=== PATIENT | male | born 1980 | race Caucasian/White ===

== ENCOUNTER 2019-01-27 17:54 | Inpatient (IN) | payer OTHER ==
[~2019-01-27] VITALS: Ht 195.6 cm; Wt 162.4 kg
[2019-01-27 18:49] LABS: BASO # 0.1 x10^3/uL (0.0-0.2); BASO % 2 % (0-3); EOS # 0.8 x10^3/uL (0.0-0.7); EOS % 9 % (0-3); HEMATOCRIT 42.3 % (39.0-53.0); HEMOGLOBIN 14.3 g/dL (13.0-17.5); LYMPH # 2.4 x10^3/uL (1.0-4.8); LYMPH % 28 % (24-48); MEAN CORPUSCULAR HEMOGLOBIN 31 pg (25-35); MEAN CORPUSCULAR HGB CONC 34 g/dL (31-37); MEAN CORPUSCULAR VOLUME 93 fL (79-100); MONO # 0.7 x10^3/uL (0.0-1.1); MONO % 8 % (0-9); NEUT # 4.6 x10^3uL (1.8-7.7); NEUT % 53 % (31-73); PLATELET COUNT 207 x10^3/uL (140-400); RED BLOOD COUNT 4.55 x10^6/uL (4.30-5.70); RED CELL DISTRIBUTION WIDTH 14.9 % (11.5-14.5); WHITE BLOOD COUNT 8.6 x10^3/uL (4.0-11.0)
[2019-01-27 18:59] LABS: PROTHROMBIN TIME PATIENT 13.2 SEC (11.7-14.0)
[2019-01-27 19:02] LABS: CALCIUM 9.3 mg/dL (8.5-10.1); GFR 84.1; POTASSIUM 3.6 mmol/L (3.5-5.1)
[2019-01-27 19:08] LABS: ALBUMIN 3.1 g/dL (3.4-5.0); ALBUMIN/GLOBULIN RATIO 0.6 (1.0-1.7); TOTAL BILIRUBIN 7.3 mg/dL (0.2-1.0); TOTAL PROTEIN 8.1 g/dL (6.4-8.2)
[2019-01-27] MEDS ORDERED: IOHEXOL 300 MG/ML 100ML VIAL. IV ONE (19:15)
[2019-01-27] MEDS ORDERED: IOHEXOL 240 MG/ML 50ML VIAL. PO ONE (19:15)
[2019-01-27] MEDS ORDERED: CONTRAST GIVEN. MC PRN (19:30)
[2019-01-27 20:07] LABS: BILIRUBIN,URINE LARGE (NEG); CLARITY,URINE CLEAR; PROTEIN,URINE NEGATIVE (NEG-TRACE)
[2019-01-27 20:11] LABS: COLOR,URINE AMBER
[2019-01-27 20:13] LABS: HYALINE CASTS, URINE OCCASIONAL /HPF; SQUAMOUS EPITHELIAL CELL,UR FEW /LPF
[2019-01-27 20:14] LABS: BARBITURATES NEG (NEG); BENZODIAZEPINES NEG (NEG); CANNABINOIDS NEG (NEG); COCAINE NEG (NEG); METHADONE NEG (NEG); OPIATES NEG (NEG); PHENCYCLIDINE NEG (NEG); WBC,URINE OCC /HPF (0-4)
[2019-01-27 20:15] LABS: AMPHETAMINE/METHAMPHETAMINE NEG (NEG)
[2019-01-27 20:16] LABS: NITRITE,URINE NEGATIVE (NEG)
[2019-01-27 20:17] LABS: BACTERIA,URINE 0 /HPF (0-FEW); RBC,URINE 0 /HPF (0-2)
--- NOTE | 2019-01-27 20:23 | PHYS DOC ---
Past Medical History Past Medical History: No Pertinent History Additional Past Surgical Histo: Back surgery-2006 Alcohol Use: None Drug Use: None Adult General Chief Complaint Chief Complaint: ABNORMAL LABS HPI HPI Patient is a 38 year old incarcerated male who presents with abnormal lab. Patient complaining of jaundice for the last couple days with not feeling good and generalized weakness, dark colored urine and house color stool , left lower quadrant mild aching pain as 3/10 without fever and chills, diarrhea, constipation. Patient complaining of mild nausea and anorexia. Patient denies history of alcoholism or hepatitis, liver problem, history of IV drug Use. Patient had lab yesterday [facility] the [facility] and had bilirubin of 7.2 and sent to ER for more evaluation. Review of Systems Review of Systems Constitutional: Denies fever or chills [] Eyes: Denies change in visual acuity, redness, or eye pain [] HENT: Denies nasal congestion or sore throat [] Respiratory: Denies cough or shortness of breath [] Cardiovascular: No additional information not addressed in HPI [] GI: Reports nausea and abdominal pain, denies vomiting, bloody stools or diar jacob. : Denies dysuria or hematuria [] Musculoskeletal: Denies back pain or joint pain [] Integument: Denies rash or skin lesions [] Neurologic: Denies headache, focal weakness or sensory changes [] Endocrine: Denies polyuria or polydipsia [] All other systems were reviewed and found to be within normal limits, except as documented in this note. Current Medications Current Medications Current Medications Medications (Trade) Dose Ordered Sig/Pierce Start Time Stop Time Status Last Admin Dose Admin Info (CONTRAST GIVEN -- Rx MONITORING) 1 each PRN DAILY PRN 01/27/19 19:30 01/29/19 19:29 Iohexol (Omnipaque 240 Mg/ml) 30 ml 1X ONCE 01/27/19 19:15 01/27/19 19:16 DC 01/27/19 19:15 30 ML Iohexol (Omnipaque 300 Mg/ml) 75 ml 1X ONCE 01/27/19 19:15 01/27/19 19:16 DC 01/27/19 20:10 75 ML Allergies Allergies Allergies Coded Allergies Type Severity Reaction Last Updated Verified codeine Allergy Mild Hives 01/27/19 Yes lithium Adverse Reaction Severe SEIZURE 01/27/19 Yes Physical Exam Physical Exam Constitutional: Well nourished, mild distress, non-toxic appearance, morbidly obese. [] HENT: Normocephalic, atraumatic, oropharynx moist, no oral exudates, nose normal. [] Eyes: PERRLA, EOMI, conjunctiva normal, no discharge, jaundice. [] Neck: Normal range of motion, no tenderness, supple, no stridor. [] Cardiovascular:Heart rate regular rhythm, no murmur [] Lungs & Thorax: Bilateral breath sounds clear to auscultation [] Abdomen: Bowel sounds normal, soft, no tenderness, no masses, no pulsatile masses. [] Skin: Warm, dry, no erythema, no rash, jaundice. [] Back: No tenderness, no CVA tenderness. [] Extremities: No tenderness, no cyanosis, no clubbing, ROM intact, no edema. [] Neurologic: Alert and oriented X 3, normal motor function, normal sensory function, no focal deficits noted. [] Psychologic: Affect normal, judgement normal, mood normal. [] Current Patient Data Vital Signs Vital Signs Date Time Temp Pulse Resp B/P (MAP) Pulse Ox O2 Delivery O2 Flow Rate FiO2 01/27/19 19:58 93 20 111/84 (93) 97 Room Air 01/27/19 18:36 98.9 98.9 Lab Values Laboratory Tests Test 01/27/19 18:38 01/27/19 19:55 White Blood Count 8.6 x10^3/uL (4.0-11.0) Red Blood Count 4.55 x10^6/uL (4.30-5.70) Hemoglobin 14.3 g/dL (13.0-17.5) Hematocrit 42.3 % (39.0-53.0) Mean Corpuscular Volume 93 fL (79-100) Mean Corpuscular Hemoglobin 31 pg (25-35) Mean Corpuscular Hemoglobin Concent 34 g/dL (31-37) Red Cell Distribution Width 14.9 % (11.5-14.5) H Platelet Count 207 x10^3/uL (140-400) Neutrophils (%) (Auto) 53 % (31-73) Lymphocytes (%) (Auto) 28 % (24-48) Monocytes (%) (Auto) 8 % (0-9) Eosinophils (%) (Auto) 9 % (0-3) H Basophils (%) (Auto) 2 % (0-3) Neutrophils # (Auto) 4.6 x10^3uL (1.8-7.7) Lymphocytes # (Auto) 2.4 x10^3/uL (1.0-4.8) Monocytes # (Auto) 0.7 x10^3/uL (0.0-1.1) Eosinophils # (Auto) 0.8 x10^3/uL (0.0-0.7) H Basophils # (Auto) 0.1 x10^3/uL (0.0-0.2) Prothrombin Time 13.2 SEC (11.7-14.0) Prothrombin Time INR 1.0 (0.8-1.1) PTT 28 SEC (24-38) Sodium Level 138 mmol/L (136-145) Potassium Level 3.6 mmol/L (3.5-5.1) Chloride Level 102 mmol/L (98-107) Carbon Dioxide Level 24 mmol/L (21-32) Anion Gap 12 (6-14) Blood Urea Nitrogen 13 mg/dL (8-26) Creatinine 1.0 mg/dL (0.7-1.3) Estimated GFR (Cockcroft-Gault) 84.1 BUN/Creatinine Ratio 13 (6-20) Glucose Level 162 mg/dL (70-99) H Calcium Level 9.3 mg/dL (8.5-10.1) Total Bilirubin 7.3 mg/dL (0.2-1.0) H Aspartate Amino Transferase (AST) 86 U/L (15-37) H Alanine Aminotransferase (ALT) 225 U/L (16-63) H Alkaline Phosphatase 373 U/L (46-116) H Ammonia 17 mcmol/L (11-34) Total Protein 8.1 g/dL (6.4-8.2) Albumin 3.1 g/dL (3.4-5.0) L Albumin/Globulin Ratio 0.6 (1.0-1.7) L Lipase 184 U/L (73-393) Ethyl Alcohol Level < 10 mg/dL (0-10) Urine Collection Type Unknown Urine Color Gregoria Urine Clarity Clear Urine pH 6.0 Urine Specific [place] >=1.030 Urine Protein Negative mg/dL (NEG-TRACE) Urine Glucose (UA) Negative mg/dL (NEG) Urine Ketones (Stick) 15 mg/dL (NEG) Urine Blood Negative (NEG) Urine Nitrite Negative (NEG) Urine Bilirubin Large (NEG) Urine Urobilinogen Dipstick 1.0 mg/dL (0.2 mg/dL) Urine Leukocyte Esterase Negative (NEG) Urine RBC 0 /HPF (0-2) Urine WBC Occ /HPF (0-4) Urine Squamous Epithelial Cells Few /LPF Urine Transitional Epithelial Cells Occ /LPF Urine Bacteria 0 /HPF (0-FEW) Urine Hyaline Casts Occasional /HPF Urine Mucus Marked /LPF Urine Opiates Screen Neg (NEG) Urine Methadone Screen Neg (NEG) Urine Barbiturates Neg (NEG) Urine Phencyclidine Screen Neg (NEG) Urine Amphetamine/Methamphetamine Neg (NEG) Urine Benzodiazepines Screen Neg (NEG) Urine Cocaine Screen Neg (NEG) Urine Cannabinoids Screen Neg (NEG) Urine Ethyl Alcohol Neg (NEG) Laboratory Tests 01/27/19 18:38 Laboratory Tests 01/27/19 18:38 EKG EKG [] Radiology/Procedures Radiology/Procedures [facility] [address] [place] [address] IMAGING REPORT Signed PATIENT: HALEY AHMADI ACCOUNT: [id number] : 1980 LOCATION: ER AGE: 38 SEX: M EXAM STATUS: REG ER ORD. PHYSICIAN: WADE CASAREZ MD REASON: jaundice PROCEDURE: CT ABD PELV W/ORAL&IV CONTRAST CT SCAN OF THE ABDOMEN AND PELVIS WITH IV CONTRAST. History: Jaundice Comparison:None. Procedure: Contiguous axial images of the abdomen and pelvis were performed after the administration of 75 cc of Omni 300 IV contrast and oral contrast. CT Abdomen with contrast: Findings: The common bile duct is dilated to 1.4 cm and the intrahepatic biliary tree is mildly dilated. There is a subcentimeter hypoattenuating lesion in the right lobe of liver which is too small to characterize. The gallbladder appears normal. Spleen: Unremarkable Pancreas: Unremarkable Adrenal Glands: Unremarkable Kidneys: Unremarkable There is no mass or lymphadenopathy. There is no free air. There is no free fluid. The appendix is normal. CT Pelvis with Contrast: Findings: The urinary bladder appears normal. There is no free fluid. There is no lymphadenopathy. Impression: Dilated common bile duct and dilated intrahepatic biliary tree without a stone seen. A nonradiopaque stone is possible and clinical correlation is suggested. PQRS Compliance Statement: One or more of the following individualized dose reduction techniques were utilized for this examination: 1. Automated exposure control 2. Adjustment of the mA and/or kV according to patient size 3. Use of iterative reconstruction technique Electronically signed by: Jose Mendez III, MD (01/27/2019 8:57 PM) [facility] DICTATED and SIGNED BY: JOSE MENDEZ III, MD DATE: 01/27/192056 Course & Med Decision Making Course & Med Decision Making Pertinent Labs and Imaging studies reviewed. (See chart for details) Evaluation of patient in ER showed 38-year-old male resident of present with sudden onset of jaundice for the last couple days. Patient had obvious junk denies bilirubin of more than 7 and elevation of liver function tests. CT showed dilated intrahepatic and common bile duct. Plan to admit patient to hospitalist consulted surgeon for further evaluation and treatment of jaundice.Patient requiring admission for further evaluation and treatment. Discussed with Dr. Anderson who is in agreement with admission. Discussed findings and plan with patient and family, who acknowledge understanding and agreement. Dragon Disclaimer Dragon Disclaimer This electronic medical record was generated, in whole or in part, using a voice recognition dictation system. Departure Departure Impression: Primary Impression: Jaundice Additional Impressions: Common bile duct dilatation Morbid obesity Disposition: 09 ADMITTED INPATIENT (at 2109) Admitting Physician: Almita Anderson (Accepted admission at 2109) Condition: IMPROVED Referrals: UNKNOWN PCP NAME (PCP) Problem Qualifiers WADE CASAREZ MD Jan 27, 2019 20:23
--- NOTE | 2019-01-27 21:00 | RAD ---
CT SCAN OF THE ABDOMEN AND PELVIS WITH IV CONTRAST. History: Jaundice Comparison:None. Procedure: Contiguous axial images of the abdomen and pelvis were performed after the administration of 75 cc of Omni 300 IV contrast and oral contrast. CT Abdomen with contrast: Findings: The common bile duct is dilated to 1.4 cm and the intrahepatic biliary tree is mildly dilated. There is a subcentimeter hypoattenuating lesion in the right lobe of liver which is too small to characterize. The gallbladder appears normal. Spleen: Unremarkable Pancreas: Unremarkable Adrenal Glands: Unremarkable Kidneys: Unremarkable There is no mass or lymphadenopathy. There is no free air. There is no free fluid. The appendix is normal. CT Pelvis with Contrast: Findings: The urinary bladder appears normal. There is no free fluid. There is no lymphadenopathy. Impression: Dilated common bile duct and dilated intrahepatic biliary tree without a stone seen. A nonradiopaque stone is possible and clinical correlation is suggested. PQRS Compliance Statement: One or more of the following individualized dose reduction techniques were utilized for this examination: 1. Automated exposure control 2. Adjustment of the mA and/or kV according to patient size 3. Use of iterative reconstruction technique Electronically signed by: Tunde Godinez III, MD (01/27/2019 8:57 PM) [facility]
[2019-01-27] MEDS ORDERED: KETOROLAC 30 MG/ML VIAL. IV ONE (21:30)
[2019-01-27] MEDS ORDERED: IV NORMAL SALINE 1000ML BAG 1,000 ML IV ONE (21:30)
[2019-01-27 22:25] VITALS: BP 127/85
[2019-01-27] MEDS: IV NORMAL SALINE 1000ML BAG 1,000 ML IV SCH (23:21)
[2019-01-28] MEDS ORDERED: METF500T16 PO (02:48)
[2019-01-28] MEDS ORDERED: HALO10TA PO (02:48)
[2019-01-28] MEDS ORDERED: FLUO40CA9 PO (02:48)
[2019-01-28] MEDS ORDERED: CALC200T3 PO (02:49)
[2019-01-28] MEDS ORDERED: BUSP30TA PO (02:49)
[2019-01-28] MEDS ORDERED: OLAN15TA3 PO (02:49)
[2019-01-28] MEDS ORDERED: PANT20TA2 PO (02:49)
[2019-01-28] MEDS ORDERED: MIRT15TA PO (02:49)
[2019-01-28] MEDS ORDERED: ATOR20TA58 PO (02:49)
[2019-01-28] MEDS ORDERED: LISI2.5T PO (02:49)
[2019-01-28] MEDS ORDERED: RANI-376 PO (02:49)
[2019-01-28 03:26] VITALS: BP 107/67
[2019-01-28] MEDS: IV NORMAL SALINE 1000ML BAG 1,000 ML IV SCH ×3 (06:00→18:00)
[2019-01-28 07:00] VITALS: BP 128/70
[2019-01-28] MEDS ORDERED: MORPHINE SULFATE 2 MG/ML VIAL. IV PRN (08:15)
[2019-01-28] MEDS: KETOROLAC 30 MG/ML VIAL. IV PRN (08:39)
[2019-01-28] MEDS: fentaNYL PF VIAL 100 MCG/2 ML VIAL IV PRN ×4 (10:23→21:53)
[2019-01-28 11:00] VITALS: BP 114/74
[2019-01-28] MEDS ORDERED: ceFAZolin 2GM PREMIX 2 GM/50 ML BAG IV ONE (11:00)
--- NOTE | 2019-01-28 11:19 | PDOC1 ---
History and Physical Date of Admission: Date of Admission DATE: 01/28/19 TIME: 11:16 Chief Complaint: Chief Complain: Abdominal pain and jaundice History of Present Illness: HPI: Patient is a 38 year old incarcerated male who presents with abnormal lab. Patient complaining of jaundice for the last couple days with not feeling good and generalized weakness, dark colored urine and house color stool , left lower quadrant mild aching pain as 3/10 without fever and chills, diarrhea, constipation. Patient complaining of mild nausea and anorexia. Patient denies history of alcoholism or hepatitis, liver problem, history of IV drug Use. Patient had lab yesterday at the shelter and had bilirubin of 7.2 and sent to ER for more evaluation. 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 Current Medications: Current Medications Current Medications Iohexol (Omnipaque 240 Mg/ml) 30 ml 1X ONCE PO Last administered on 01/27/19at 19:15; Start 01/27/19 at 19:15; Stop 01/27/19 at 19:16; Status DC Iohexol (Omnipaque 300 Mg/ml) 75 ml 1X ONCE IV Last administered on 01/27/19at 20:10; Start 01/27/19 at 19:15; Stop 01/27/19 at 19:16; Status DC Info (CONTRAST GIVEN -- Rx MONITORING) 1 each PRN DAILY PRN MC SEE COMMENTS; Start 01/27/19 at 19:30; Stop 01/29/19 at 19:29 Ketorolac Tromethamine (Toradol 30mg Vial) 30 mg 1X ONCE IV Last administered on 01/27/19at 22:02; Start 01/27/19 at 21:30; Stop 01/27/19 at 21:31; Status DC Sodium Chloride 1,000 ml @ 1,000 mls/hr 1X ONCE IV Last administered on 01/27/19at 21:58; Start 01/27/19 at 21:30; Stop 01/27/19 at 22:29; Status DC Sodium Chloride 1,000 ml @ 150 mls/hr Q6H40M IV Last administered on 01/28/19at 06:00; Start 01/27/19 at 22:00; Stop 01/28/19 at 21:59 Morphine Sulfate (Morphine Sulfate) 2 mg PRN Q2HR PRN IV PAIN; Start 01/28/19 at 08:15; Stop 01/28/19 at 08:23; Status DC Ketorolac Tromethamine (Toradol 30mg Vial) 20 mg PRN Q6HRS PRN IV MILD PAIN Last administered on 01/28/19at 08:39; Start 01/28/19 at 08:15; Stop 02/02/19 at 08:14 Fentanyl Citrate (Fentanyl 2ml Vial) 50 mcg PRN Q2HR PRN IV MODERATE PAIN, SEVERE PAIN Last administered on 01/28/19at 10:23; Start 01/28/19 at 08:30 Active Scripts Active Reported Buspirone Hcl 30 Mg Tablet 1 Tab PO BID Protonix (Pantoprazole Sodium) 20 Mg Tablet.dr 2 Tab PO DAILY Zantac (Ranitidine Hcl) 150 Mg Tablet 1 Tab PO HS Tums (Calcium Carbonate) 200 Mg Tab.chew 200 Mg PO TID Zyprexa (Olanzapine) 15 Mg Tablet 1 Tab PO QHS Remeron (Mirtazapine) 15 Mg Tablet 3 Tab PO QHS Lisinopril 2.5 Mg Tablet 1 Tab PO DAILY Atorvastatin Calcium 20 Mg Tablet 1 Tab PO DAILY Haloperidol 10 Mg Tablet 10 Mg PO DAILY Prozac (Fluoxetine Hcl) 40 Mg Capsule 1 Cap PO HS Metformin Hcl 500 Mg Tablet 500 Mg PO BIDWMEALS ROS: Review of Systems Review of System REVIEW OF SYSTEMS: GENERAL: Denies weakness SKIN: No bruising, hair changes or rashes. EYES: No blurred, double or loss of vision. NOSE AND THROAT: No history of nosebleeds, hoarseness or sore throat. HEART: No history of palpitations, chest pain or shortness of breath on exertion. LUNGS: Denies cough, hemoptysis, wheezing or shortness of breath. GASTROINTESTINAL: Denies changes in appetite, nausea, vomiting, diarrhea or constipation. GENITOURINARY: No history of frequency, urgency, hesitancy or nocturia. NEUROLOGIC: Denies history of numbness, tingling, tremor or weakness. PSYCHIATRIC: No history of panic, anxiety or depression. ENDOCRINE: No history of heat or cold intolerance, polyuria or polydipsia. EXTREMITIES: Denies muscle weakness, joint pain, pain on walking or stiffness. Physical Exam: Vital Signs: Vital Signs Date Time Temp Pulse Resp B/P (MAP) Pulse Ox O2 Delivery O2 Flow Rate FiO2 01/28/19 10:23 91 Room Air 01/28/19 07:00 99.4 84 18 128/70 (89) 99.4 Physcial Exam: GEN.: No apparent distress. Alert and oriented. HEENT: He has scleral icterus NECK: Supple, no JVD LUNGS: Clear to auscultation without rhonchi or wheezing HEART: RRR, S1, S2 present. Peripheral pulses intact ABDOMEN: Soft, nontender. Positive bowel sounds no organomegaly EXTREMITIES: Without any cyanosis, clubbing, or edema. Pedal pulses intact NEUROLOGIC: Normal speech, normal tone. A&O x 3 PSYCHIATRIC: Normal affect, normal mood. Stable SKIN: Jaundiced Labs: Labs: Laboratory Tests Test 01/27/19 18:38 01/27/19 19:55 White Blood Count 8.6 x10^3/uL (4.0-11.0) Red Blood Count 4.55 x10^6/uL (4.30-5.70) Hemoglobin 14.3 g/dL (13.0-17.5) Hematocrit 42.3 % (39.0-53.0) Mean Corpuscular Volume 93 fL (79-100) Mean Corpuscular Hemoglobin 31 pg (25-35) Mean Corpuscular Hemoglobin Concent 34 g/dL (31-37) Red Cell Distribution Width 14.9 % (11.5-14.5) Platelet Count 207 x10^3/uL (140-400) Neutrophils (%) (Auto) 53 % (31-73) Lymphocytes (%) (Auto) 28 % (24-48) Monocytes (%) (Auto) 8 % (0-9) Eosinophils (%) (Auto) 9 % (0-3) Basophils (%) (Auto) 2 % (0-3) Neutrophils # (Auto) 4.6 x10^3uL (1.8-7.7) Lymphocytes # (Auto) 2.4 x10^3/uL (1.0-4.8) Monocytes # (Auto) 0.7 x10^3/uL (0.0-1.1) Eosinophils # (Auto) 0.8 x10^3/uL (0.0-0.7) Basophils # (Auto) 0.1 x10^3/uL (0.0-0.2) Prothrombin Time 13.2 SEC (11.7-14.0) Prothromb Time International Ratio 1.0 (0.8-1.1) Activated Partial Thromboplast Time 28 SEC (24-38) Sodium Level 138 mmol/L (136-145) Potassium Level 3.6 mmol/L (3.5-5.1) Chloride Level 102 mmol/L (98-107) Carbon Dioxide Level 24 mmol/L (21-32) Anion Gap 12 (6-14) Blood Urea Nitrogen 13 mg/dL (8-26) Creatinine 1.0 mg/dL (0.7-1.3) Estimated GFR (Cockcroft-Gault) 84.1 BUN/Creatinine Ratio 13 (6-20) Glucose Level 162 mg/dL (70-99) Calcium Level 9.3 mg/dL (8.5-10.1) Total Bilirubin 7.3 mg/dL (0.2-1.0) Aspartate Amino Transf (AST/SGOT) 86 U/L (15-37) Alanine Aminotransferase (ALT/SGPT) 225 U/L (16-63) Alkaline Phosphatase 373 U/L (46-116) Ammonia 17 mcmol/L (11-34) Total Protein 8.1 g/dL (6.4-8.2) Albumin 3.1 g/dL (3.4-5.0) Albumin/Globulin Ratio 0.6 (1.0-1.7) Lipase 184 U/L (73-393) Ethyl Alcohol Level < 10 mg/dL (0-10) Urine Collection Type Unknown Urine Color Gregoria Urine Clarity Clear Urine pH 6.0 Urine Specific [place] >=1.030 Urine Protein Negative mg/dL (NEG-TRACE) Urine Glucose (UA) Negative mg/dL (NEG) Urine Ketones (Stick) 15 mg/dL (NEG) Urine Blood Negative (NEG) Urine Nitrite Negative (NEG) Urine Bilirubin Large (NEG) Urine Urobilinogen Dipstick 1.0 mg/dL (0.2 mg/dL) Urine Leukocyte Esterase Negative (NEG) Urine RBC 0 /HPF (0-2) Urine WBC Occ /HPF (0-4) Urine Squamous Epithelial Cells Few /LPF Urine Transitional Epithelial Cells Occ /LPF Urine Bacteria 0 /HPF (0-FEW) Urine Hyaline Casts Occasional /HPF Urine Mucus Marked /LPF Urine Opiates Screen Neg (NEG) Urine Methadone Screen Neg (NEG) Urine Barbiturates Neg (NEG) Urine Phencyclidine Screen Neg (NEG) Urine Amphetamine/Methamphetamine Neg (NEG) Urine Benzodiazepines Screen Neg (NEG) Urine Cocaine Screen Neg (NEG) Urine Cannabinoids Screen Neg (NEG) Urine Ethyl Alcohol Neg (NEG) Laboratory Tests Test 01/27/19 18:38 01/27/19 19:55 White Blood Count 8.6 x10^3/uL (4.0-11.0) Red Blood Count 4.55 x10^6/uL (4.30-5.70) Hemoglobin 14.3 g/dL (13.0-17.5) Hematocrit 42.3 % (39.0-53.0) Mean Corpuscular Volume 93 fL (79-100) Mean Corpuscular Hemoglobin 31 pg (25-35) Mean Corpuscular Hemoglobin Concent 34 g/dL (31-37) Red Cell Distribution Width 14.9 % (11.5-14.5) Platelet Count 207 x10^3/uL (140-400) Neutrophils (%) (Auto) 53 % (31-73) Lymphocytes (%) (Auto) 28 % (24-48) Monocytes (%) (Auto) 8 % (0-9) Eosinophils (%) (Auto) 9 % (0-3) Basophils (%) (Auto) 2 % (0-3) Neutrophils # (Auto) 4.6 x10^3uL (1.8-7.7) Lymphocytes # (Auto) 2.4 x10^3/uL (1.0-4.8) Monocytes # (Auto) 0.7 x10^3/uL (0.0-1.1) Eosinophils # (Auto) 0.8 x10^3/uL (0.0-0.7) Basophils # (Auto) 0.1 x10^3/uL (0.0-0.2) Prothrombin Time 13.2 SEC (11.7-14.0) Prothromb Time International Ratio 1.0 (0.8-1.1) Activated Partial Thromboplast Time 28 SEC (24-38) Sodium Level 138 mmol/L (136-145) Potassium Level 3.6 mmol/L (3.5-5.1) Chloride Level 102 mmol/L (98-107) Carbon Dioxide Level 24 mmol/L (21-32) Anion Gap 12 (6-14) Blood Urea Nitrogen 13 mg/dL (8-26) Creatinine 1.0 mg/dL (0.7-1.3) Estimated GFR (Cockcroft-Gault) 84.1 BUN/Creatinine Ratio 13 (6-20) Glucose Level 162 mg/dL (70-99) Calcium Level 9.3 mg/dL (8.5-10.1) Total Bilirubin 7.3 mg/dL (0.2-1.0) Aspartate Amino Transf (AST/SGOT) 86 U/L (15-37) Alanine Aminotransferase (ALT/SGPT) 225 U/L (16-63) Alkaline Phosphatase 373 U/L (46-116) Ammonia 17 mcmol/L (11-34) Total Protein 8.1 g/dL (6.4-8.2) Albumin 3.1 g/dL (3.4-5.0) Albumin/Globulin Ratio 0.6 (1.0-1.7) Lipase 184 U/L (73-393) Ethyl Alcohol Level < 10 mg/dL (0-10) Urine Collection Type Unknown Urine Color Gregoria Urine Clarity Clear Urine pH 6.0 Urine Specific [place] >=1.030 Urine Protein Negative mg/dL (NEG-TRACE) Urine Glucose (UA) Negative mg/dL (NEG) Urine Ketones (Stick) 15 mg/dL (NEG) Urine Blood Negative (NEG) Urine Nitrite Negative (NEG) Urine Bilirubin Large (NEG) Urine Urobilinogen Dipstick 1.0 mg/dL (0.2 mg/dL) Urine Leukocyte Esterase Negative (NEG) Urine RBC 0 /HPF (0-2) Urine WBC Occ /HPF (0-4) Urine Squamous Epithelial Cells Few /LPF Urine Transitional Epithelial Cells Occ /LPF Urine Bacteria 0 /HPF (0-FEW) Urine Hyaline Casts Occasional /HPF Urine Mucus Marked /LPF Urine Opiates Screen Neg (NEG) Urine Methadone Screen Neg (NEG) Urine Barbiturates Neg (NEG) Urine Phencyclidine Screen Neg (NEG) Urine Amphetamine/Methamphetamine Neg (NEG) Urine Benzodiazepines Screen Neg (NEG) Urine Cocaine Screen Neg (NEG) Urine Cannabinoids Screen Neg (NEG) Urine Ethyl Alcohol Neg (NEG) Assessment/Plan Assessment/Plan Jaundice with transaminaseitis and hyperbilirubinemia of undetermined etiology Plan She has been admitted were consulting general surgery and GI we'll recheck his liver function test abdominal ultrasound to rule out gallstones DVT prophylaxis full code home meds IV fluids when necessary Zofran when necessary narcotics prognosis guarded thank you ROQUE NAVA III DO Jan 28, 2019 11:19
--- NOTE | 2019-01-28 14:19 | PDOC2 ---
GI CONSULT Reason For Consult: Chief Complaint: Chief Complain: Abdominal pain and jaundice HPI: HPI: 38 year old incarcerated male who presents with abnormal lab. Patient compla ining of jaundice for the last couple days with not feeling good and generalized weakness, dark colored urine and house color stool , left lower quadrant mild aching pain as 3/10 without fever and chills, diarrhea, constipation. Patient complaining of mild nausea and anorexia. Patient denies history of alcoholism or hepatitis, liver problem, history of IV drug Use. Labs demonstrated an elevated biliruin ar 7.3, AST 86, ALT 225, Alk phos 373. Lipase was normal. CT with The common bile duct is dilated to 1.4 cm and the intrahepatic biliary tree is mildly dilated. There is a subcentimeter hypoattenuating lesion in the right lobe of liver which is too small to characterize. 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 Current Medications: Current Medications Current Medications Iohexol (Omnipaque 240 Mg/ml) 30 ml 1X ONCE PO Last administered on 01/27/19at 19:15; Start 01/27/19 at 19:15; Stop 01/27/19 at 19:16; Status DC Iohexol (Omnipaque 300 Mg/ml) 75 ml 1X ONCE IV Last administered on 01/27/19at 20:10; Start 01/27/19 at 19:15; Stop 01/27/19 at 19:16; Status DC Info (CONTRAST GIVEN -- Rx MONITORING) 1 each PRN DAILY PRN MC SEE COMMENTS; Start 01/27/19 at 19:30; Stop 01/29/19 at 19:29 Ketorolac Tromethamine (Toradol 30mg Vial) 30 mg 1X ONCE IV Last administered on 01/27/19at 22:02; Start 01/27/19 at 21:30; Stop 01/27/19 at 21:31; Status DC Sodium Chloride 1,000 ml @ 1,000 mls/hr 1X ONCE IV Last administered on 01/27/19at 21:58; Start 01/27/19 at 21:30; Stop 01/27/19 at 22:29; Status DC Sodium Chloride 1,000 ml @ 150 mls/hr Q6H40M IV Last administered on 01/28/19at 06:00; Start 01/27/19 at 22:00; Stop 01/28/19 at 21:59 Morphine Sulfate (Morphine Sulfate) 2 mg PRN Q2HR PRN IV PAIN; Start 01/28/19 at 08:15; Stop 01/28/19 at 08:23; Status DC Ketorolac Tromethamine (Toradol 30mg Vial) 20 mg PRN Q6HRS PRN IV MILD PAIN Last administered on 01/28/19at 08:39; Start 01/28/19 at 08:15; Stop 02/02/19 at 08:14 Fentanyl Citrate (Fentanyl 2ml Vial) 50 mcg PRN Q2HR PRN IV MODERATE PAIN, SEVERE PAIN Last administered on 01/28/19at 10:23; Start 01/28/19 at 08:30 Active Scripts Active Reported Buspirone Hcl 30 Mg Tablet 1 Tab PO BID Protonix (Pantoprazole Sodium) 20 Mg Tablet.dr 2 Tab PO DAILY Zantac (Ranitidine Hcl) 150 Mg Tablet 1 Tab PO HS Tums (Calcium Carbonate) 200 Mg Tab.chew 200 Mg PO TID Zyprexa (Olanzapine) 15 Mg Tablet 1 Tab PO QHS Remeron (Mirtazapine) 15 Mg Tablet 3 Tab PO QHS Lisinopril 2.5 Mg Tablet 1 Tab PO DAILY Atorvastatin Calcium 20 Mg Tablet 1 Tab PO DAILY Haloperidol 10 Mg Tablet 10 Mg PO DAILY Prozac (Fluoxetine Hcl) 40 Mg Capsule 1 Cap PO HS Metformin Hcl 500 Mg Tablet 500 Mg PO BIDWMEALS ROS: Review of Systems Review of System REVIEW OF SYSTEMS: GENERAL: Denies weakness SKIN: No bruising, hair changes or rashes. EYES: No blurred, double or loss of vision. NOSE AND THROAT: No history of nosebleeds, hoarseness or sore throat. HEART: No history of palpitations, chest pain or shortness of breath on exertion. LUNGS: Denies cough, hemoptysis, wheezing or shortness of breath. GASTROINTESTINAL: Denies changes in appetite, nausea, vomiting, diarrhea or constipation. GENITOURINARY: No history of frequency, urgency, hesitancy or nocturia. NEUROLOGIC: Denies history of numbness, tingling, tremor or weakness. PSYCHIATRIC: No history of panic, anxiety or depression. ENDOCRINE: No history of heat or cold intolerance, polyuria or polydipsia. EXTREMITIES: Denies muscle weakness, joint pain, pain on walking or stiffness. Social History: Smoke: No Drugs: None ROS: GEN: Denies fevers, chills, sweats HEENT: Denies blurred vision, sore throat CV: Denies chest pain RESP: Denies shortness of air, cough GI: Per HPI : Denies hematuria, dysuria ENDO: Denies weight changes NEURO: Denies confusion, dizziness MSK: Denies weakness, joint pain/swelling SKIN: Denies jaundice, pruritus VItals: Vitals: Vital Signs Date Time Temp Pulse Resp B/P (MAP) Pulse Ox O2 Delivery O2 Flow Rate FiO2 01/28/19 14:01 90 Room Air 01/28/19 11:00 98.8 78 18 114/74 (87) 98.8 Labs: Labs: Laboratory Tests Test 01/27/19 18:38 01/27/19 19:55 White Blood Count 8.6 x10^3/uL (4.0-11.0) Red Blood Count 4.55 x10^6/uL (4.30-5.70) Hemoglobin 14.3 g/dL (13.0-17.5) Hematocrit 42.3 % (39.0-53.0) Mean Corpuscular Volume 93 fL (79-100) Mean Corpuscular Hemoglobin 31 pg (25-35) Mean Corpuscular Hemoglobin Concent 34 g/dL (31-37) Red Cell Distribution Width 14.9 % (11.5-14.5) Platelet Count 207 x10^3/uL (140-400) Neutrophils (%) (Auto) 53 % (31-73) Lymphocytes (%) (Auto) 28 % (24-48) Monocytes (%) (Auto) 8 % (0-9) Eosinophils (%) (Auto) 9 % (0-3) Basophils (%) (Auto) 2 % (0-3) Neutrophils # (Auto) 4.6 x10^3uL (1.8-7.7) Lymphocytes # (Auto) 2.4 x10^3/uL (1.0-4.8) Monocytes # (Auto) 0.7 x10^3/uL (0.0-1.1) Eosinophils # (Auto) 0.8 x10^3/uL (0.0-0.7) Basophils # (Auto) 0.1 x10^3/uL (0.0-0.2) Prothrombin Time 13.2 SEC (11.7-14.0) Prothromb Time International Ratio 1.0 (0.8-1.1) Activated Partial Thromboplast Time 28 SEC (24-38) Sodium Level 138 mmol/L (136-145) Potassium Level 3.6 mmol/L (3.5-5.1) Chloride Level 102 mmol/L (98-107) Carbon Dioxide Level 24 mmol/L (21-32) Anion Gap 12 (6-14) Blood Urea Nitrogen 13 mg/dL (8-26) Creatinine 1.0 mg/dL (0.7-1.3) Estimated GFR (Cockcroft-Gault) 84.1 BUN/Creatinine Ratio 13 (6-20) Glucose Level 162 mg/dL (70-99) Calcium Level 9.3 mg/dL (8.5-10.1) Total Bilirubin 7.3 mg/dL (0.2-1.0) Aspartate Amino Transf (AST/SGOT) 86 U/L (15-37) Alanine Aminotransferase (ALT/SGPT) 225 U/L (16-63) Alkaline Phosphatase 373 U/L (46-116) Ammonia 17 mcmol/L (11-34) Total Protein 8.1 g/dL (6.4-8.2) Albumin 3.1 g/dL (3.4-5.0) Albumin/Globulin Ratio 0.6 (1.0-1.7) Lipase 184 U/L (73-393) Ethyl Alcohol Level < 10 mg/dL (0-10) Urine Collection Type Unknown Urine Color Gregoria Urine Clarity Clear Urine pH 6.0 Urine Specific [place] >=1.030 Urine Protein Negative mg/dL (NEG-TRACE) Urine Glucose (UA) Negative mg/dL (NEG) Urine Ketones (Stick) 15 mg/dL (NEG) Urine Blood Negative (NEG) Urine Nitrite Negative (NEG) Urine Bilirubin Large (NEG) Urine Urobilinogen Dipstick 1.0 mg/dL (0.2 mg/dL) Urine Leukocyte Esterase Negative (NEG) Urine RBC 0 /HPF (0-2) Urine WBC Occ /HPF (0-4) Urine Squamous Epithelial Cells Few /LPF Urine Transitional Epithelial Cells Occ /LPF Urine Bacteria 0 /HPF (0-FEW) Urine Hyaline Casts Occasional /HPF Urine Mucus Marked /LPF Urine Opiates Screen Neg (NEG) Urine Methadone Screen Neg (NEG) Urine Barbiturates Neg (NEG) Urine Phencyclidine Screen Neg (NEG) Urine Amphetamine/Methamphetamine Neg (NEG) Urine Benzodiazepines Screen Neg (NEG) Urine Cocaine Screen Neg (NEG) Urine Cannabinoids Screen Neg (NEG) Urine Ethyl Alcohol Neg (NEG) Imaging: Imaging: CT SCAN OF THE ABDOMEN AND PELVIS WITH IV CONTRAST. History: Jaundice Comparison:None. Procedure: Contiguous axial images of the abdomen and pelvis were performed after the administration of 75 cc of Omni 300 IV contrast and oral contrast. CT Abdomen with contrast: Findings: The common bile duct is dilated to 1.4 cm and the intrahepatic biliary tree is mildly dilated. There is a subcentimeter hypoattenuating lesion in the right lobe of liver which is too small to characterize. The gallbladder appears normal. Spleen: Unremarkable Pancreas: Unremarkable Adrenal Glands: Unremarkable Kidneys: Unremarkable There is no mass or lymphadenopathy. There is no free air. There is no free fluid. The appendix is normal. CT Pelvis with Contrast: Findings: The urinary bladder appears normal. There is no free fluid. There is no lymphadenopathy. Impression: Dilated common bile duct and dilated intrahepatic biliary tree without a stone seen. A nonradiopaque stone is possible and clinical correlation is suggested. PQRS Compliance Statement: One or more of the following individualized dose reduction techniques were utilized for this examination: 1. Automated exposure control 2. Adjustment of the mA and/or kV according to patient size 3. Use of iterative reconstruction technique Electronically signed by: Jose Godinez III, MD (01/27/2019 8:57 PM) [facility] DICTATED and SIGNED BY: JOSE GODINEZ III, MD DATE: 01/27/192056 PE: Physcial Exam: GEN.: No apparent distress. Alert and oriented. HEENT: He has scleral icterus NECK: Supple, no JVD LUNGS: Clear to auscultation without rhonchi or wheezing HEART: RRR, S1, S2 present. Peripheral pulses intact ABDOMEN: Soft, nontender. Positive bowel sounds no organomegaly EXTREMITIES: Without any cyanosis, clubbing, or edema. Pedal pulses intact NEUROLOGIC: Normal speech, normal tone. A&O x 3 PSYCHIATRIC: Normal affect, normal mood. Stable SKIN: Jaundiced A/P: A/P: A) 1) Elevated bilirubin 2) Transaminitis 3) Elevated alk phos 4) Dilated CBD on CT P) 1) Await MRCP results 2) Check hepatitis serologies ELIZABETH SANTILLAN MD Jan 28, 2019 14:19
--- NOTE | 2019-01-28 14:45 | RAD ---
MRCP WO CONTRAST History: Jaundice, dilated common bile duct, abnormal CT Comparison: CT January 27, 2019 Findings: There is cholelithiasis. Extra hepatic common bile duct is dilated up to about 1.5 cm. There is also intrahepatic biliary ductal dilatation. There is a more focal round filling defect in the distal common bile duct of the head of the pancreas about 1.2 cm in size. There is apparently trace fluid in the nii hepatis region and along the posterior and right lateral margin of pancreas. Gallbladder is somewhat distended. There are 3 T2 hyperintense lesions of the right lobe liver with the largest about 1.6 cm. There is some associated diffusion signal abnormality There is no hydronephrosis of either kidney. Impression: 1. Round filling defect in the distal common bile duct is likely choledocholithiasis rather than mass,. There is biliary ductal dilatation. There is cholelithiasis. 2. T2 hyperintense liver lesions are more likely due to hemangiomas or complex cysts with debris, especially in a patient this age. Electronically signed by: Enmanuel Bangura MD (01/28/2019 2:43 PM) [facility]
[2019-01-28 15:00] VITALS: BP 116/79
--- NOTE | 2019-01-28 15:43 | PDOC2 ---
CONSULT Date of Consult Date of Consult DATE: 01/28/19 TIME: 15:38 Reason for Consult Reason for Consult: Jaundice Referring Physician Referring Physician: Justin Identification/Chief Complaint Chief Complaint LLQ abd pain, jaundice Source Source: Chart review, Patient History of Present Illness Reason for Visit: 38 yo M with a 3 day hx of abd pain in the LLQ and noticed jaundice of eyes with dark urine and denise stools. No previous episodes. Past Medical History GI: GERD Psych: Schizophrenia Past Surgical History Past Surgical History: No pertinent history Family History Family History: Diabetes Social History No ALCOHOL: none Drugs: None Current Problem List Problem List Problems Medical Problems: (1) Common bile duct dilatation Status: Acute (2) Jaundice Status: Acute (3) Morbid obesity Status: Acute Current Medications Current Medications Current Medications Iohexol (Omnipaque 240 Mg/ml) 30 ml 1X ONCE PO Last administered on 01/27/19at 19:15; Start 01/27/19 at 19:15; Stop 01/27/19 at 19:16; Status DC Iohexol (Omnipaque 300 Mg/ml) 75 ml 1X ONCE IV Last administered on 01/27/19at 20:10; Start 01/27/19 at 19:15; Stop 01/27/19 at 19:16; Status DC Info (CONTRAST GIVEN -- Rx MONITORING) 1 each PRN DAILY PRN MC SEE COMMENTS; Start 01/27/19 at 19:30; Stop 01/29/19 at 19:29 Ketorolac Tromethamine (Toradol 30mg Vial) 30 mg 1X ONCE IV Last administered on 01/27/19at 22:02; Start 01/27/19 at 21:30; Stop 01/27/19 at 21:31; Status DC Sodium Chloride 1,000 ml @ 1,000 mls/hr 1X ONCE IV Last administered on 01/27/19at 21:58; Start 01/27/19 at 21:30; Stop 01/27/19 at 22:29; Status DC Sodium Chloride 1,000 ml @ 150 mls/hr Q6H40M IV Last administered on 01/28/19at 12:34; Start 01/27/19 at 22:00; Stop 01/28/19 at 21:59 Morphine Sulfate (Morphine Sulfate) 2 mg PRN Q2HR PRN IV PAIN; Start 01/28/19 at 08:15; Stop 01/28/19 at 08:23; Status DC Ketorolac Tromethamine (Toradol 30mg Vial) 20 mg PRN Q6HRS PRN IV MILD PAIN Last administered on 01/28/19at 08:39; Start 01/28/19 at 08:15; Stop 02/02/19 at 08:14 Fentanyl Citrate (Fentanyl 2ml Vial) 50 mcg PRN Q2HR PRN IV MODERATE PAIN, SEVERE PAIN Last administered on 01/28/19at 14:01; Start 01/28/19 at 08:30 Cefazolin Sodium/ Dextrose 50 ml @ 100 mls/hr 1X PREOP IV ; Start 01/28/19 at 15:45; Stop 01/29/19 at 18:00 Active Scripts Active Reported Buspirone Hcl 30 Mg Tablet 1 Tab PO BID Protonix (Pantoprazole Sodium) 20 Mg Tablet.dr 2 Tab PO DAILY Zantac (Ranitidine Hcl) 150 Mg Tablet 1 Tab PO HS Tums (Calcium Carbonate) 200 Mg Tab.chew 200 Mg PO TID Zyprexa (Olanzapine) 15 Mg Tablet 1 Tab PO QHS Remeron (Mirtazapine) 15 Mg Tablet 3 Tab PO QHS Lisinopril 2.5 Mg Tablet 1 Tab PO DAILY Atorvastatin Calcium 20 Mg Tablet 1 Tab PO DAILY Haloperidol 10 Mg Tablet 10 Mg PO DAILY Prozac (Fluoxetine Hcl) 40 Mg Capsule 1 Cap PO HS Metformin Hcl 500 Mg Tablet 500 Mg PO BIDWMEALS Allergies Allergies: Coded Allergies: codeine (Verified Allergy, Intermediate, Hives, 01/28/19) lithium (Verified Adverse Reaction, Severe, SEIZURE, 01/27/19) ROS General: YES: Malaise Physical Exam General: Alert, Oriented X3, Cooperative, No acute distress, Other (jaundice) HEENT: Atraumatic Lungs: Normal air movement Abdomen: Soft, Other (min TTP LLQ) Extremities: No clubbing, No cyanosis Skin: Other (jaundice) Neuro: Normal speech, Sensation intact Psych/Mental Status: Mental status NL, Mood NL Vitals VITALS Vital Signs Date Time Temp Pulse Resp B/P (MAP) Pulse Ox O2 Delivery O2 Flow Rate FiO2 01/28/19 14:35 90 Room Air 01/28/19 11:00 98.8 78 18 114/74 (87) 98.8 Labs Labs Laboratory Tests Test 01/27/19 18:38 4/26/19 19:55 White Blood Count 8.6 x10^3/uL (4.0-11.0) Red Blood Count 4.55 x10^6/uL (4.30-5.70) Hemoglobin 14.3 g/dL (13.0-17.5) Hematocrit 42.3 % (39.0-53.0) Mean Corpuscular Volume 93 fL (79-100) Mean Corpuscular Hemoglobin 31 pg (25-35) Mean Corpuscular Hemoglobin Concent 34 g/dL (31-37) Red Cell Distribution Width 14.9 % (11.5-14.5) Platelet Count 207 x10^3/uL (140-400) Neutrophils (%) (Auto) 53 % (31-73) Lymphocytes (%) (Auto) 28 % (24-48) Monocytes (%) (Auto) 8 % (0-9) Eosinophils (%) (Auto) 9 % (0-3) Basophils (%) (Auto) 2 % (0-3) Neutrophils # (Auto) 4.6 x10^3uL (1.8-7.7) Lymphocytes # (Auto) 2.4 x10^3/uL (1.0-4.8) Monocytes # (Auto) 0.7 x10^3/uL (0.0-1.1) Eosinophils # (Auto) 0.8 x10^3/uL (0.0-0.7) Basophils # (Auto) 0.1 x10^3/uL (0.0-0.2) Prothrombin Time 13.2 SEC (11.7-14.0) Prothromb Time International Ratio 1.0 (0.8-1.1) Activated Partial Thromboplast Time 28 SEC (24-38) Sodium Level 138 mmol/L (136-145) Potassium Level 3.6 mmol/L (3.5-5.1) Chloride Level 102 mmol/L (98-107) Carbon Dioxide Level 24 mmol/L (21-32) Anion Gap 12 (6-14) Blood Urea Nitrogen 13 mg/dL (8-26) Creatinine 1.0 mg/dL (0.7-1.3) Estimated GFR (Cockcroft-Gault) 84.1 BUN/Creatinine Ratio 13 (6-20) Glucose Level 162 mg/dL (70-99) Calcium Level 9.3 mg/dL (8.5-10.1) Total Bilirubin 7.3 mg/dL (0.2-1.0) Aspartate Amino Transf (AST/SGOT) 86 U/L (15-37) Alanine Aminotransferase (ALT/SGPT) 225 U/L (16-63) Alkaline Phosphatase 373 U/L (46-116) Ammonia 17 mcmol/L (11-34) Total Protein 8.1 g/dL (6.4-8.2) Albumin 3.1 g/dL (3.4-5.0) Albumin/Globulin Ratio 0.6 (1.0-1.7) Lipase 184 U/L (73-393) Ethyl Alcohol Level < 10 mg/dL (0-10) Urine Collection Type Unknown Urine Color Gregoria Urine Clarity Clear Urine pH 6.0 Urine Specific [place] >=1.030 Urine Protein Negative mg/dL (NEG-TRACE) Urine Glucose (UA) Negative mg/dL (NEG) Urine Ketones (Stick) 15 mg/dL (NEG) Urine Blood Negative (NEG) Urine Nitrite Negative (NEG) Urine Bilirubin Large (NEG) Urine Urobilinogen Dipstick 1.0 mg/dL (0.2 mg/dL) Urine Leukocyte Esterase Negative (NEG) Urine RBC 0 /HPF (0-2) Urine WBC Occ /HPF (0-4) Urine Squamous Epithelial Cells Few /LPF Urine Transitional Epithelial Cells Occ /LPF Urine Bacteria 0 /HPF (0-FEW) Urine Hyaline Casts Occasional /HPF Urine Mucus Marked /LPF Urine Opiates Screen Neg (NEG) Urine Methadone Screen Neg (NEG) Urine Barbiturates Neg (NEG) Urine Phencyclidine Screen Neg (NEG) Urine Amphetamine/Methamphetamine Neg (NEG) Urine Benzodiazepines Screen Neg (NEG) Urine Cocaine Screen Neg (NEG) Urine Cannabinoids Screen Neg (NEG) Urine Ethyl Alcohol Neg (NEG) Laboratory Tests Test 01/27/19 18:38 01/27/19 19:55 White Blood Count 8.6 x10^3/uL (4.0-11.0) Red Blood Count 4.55 x10^6/uL (4.30-5.70) Hemoglobin 14.3 g/dL (13.0-17.5) Hematocrit 42.3 % (39.0-53.0) Mean Corpuscular Volume 93 fL (79-100) Mean Corpuscular Hemoglobin 31 pg (25-35) Mean Corpuscular Hemoglobin Concent 34 g/dL (31-37) Red Cell Distribution Width 14.9 % (11.5-14.5) Platelet Count 207 x10^3/uL (140-400) Neutrophils (%) (Auto) 53 % (31-73) Lymphocytes (%) (Auto) 28 % (24-48) Monocytes (%) (Auto) 8 % (0-9) Eosinophils (%) (Auto) 9 % (0-3) Basophils (%) (Auto) 2 % (0-3) Neutrophils # (Auto) 4.6 x10^3uL (1.8-7.7) Lymphocytes # (Auto) 2.4 x10^3/uL (1.0-4.8) Monocytes # (Auto) 0.7 x10^3/uL (0.0-1.1) Eosinophils # (Auto) 0.8 x10^3/uL (0.0-0.7) Basophils # (Auto) 0.1 x10^3/uL (0.0-0.2) Prothrombin Time 13.2 SEC (11.7-14.0) Prothromb Time International Ratio 1.0 (0.8-1.1) Activated Partial Thromboplast Time 28 SEC (24-38) Sodium Level 138 mmol/L (136-145) Potassium Level 3.6 mmol/L (3.5-5.1) Chloride Level 102 mmol/L (98-107) Carbon Dioxide Level 24 mmol/L (21-32) Anion Gap 12 (6-14) Blood Urea Nitrogen 13 mg/dL (8-26) Creatinine 1.0 mg/dL (0.7-1.3) Estimated GFR (Cockcroft-Gault) 84.1 BUN/Creatinine Ratio 13 (6-20) Glucose Level 162 mg/dL (70-99) Calcium Level 9.3 mg/dL (8.5-10.1) Total Bilirubin 7.3 mg/dL (0.2-1.0) Aspartate Amino Transf (AST/SGOT) 86 U/L (15-37) Alanine Aminotransferase (ALT/SGPT) 225 U/L (16-63) Alkaline Phosphatase 373 U/L (46-116) Ammonia 17 mcmol/L (11-34) Total Protein 8.1 g/dL (6.4-8.2) Albumin 3.1 g/dL (3.4-5.0) Albumin/Globulin Ratio 0.6 (1.0-1.7) Lipase 184 U/L (73-393) Ethyl Alcohol Level < 10 mg/dL (0-10) Urine Collection Type Unknown Urine Color Gregoria Urine Clarity Clear Urine pH 6.0 Urine Specific [place] >=1.030 Urine Protein Negative mg/dL (NEG-TRACE) Urine Glucose (UA) Negative mg/dL (NEG) Urine Ketones (Stick) 15 mg/dL (NEG) Urine Blood Negative (NEG) Urine Nitrite Negative (NEG) Urine Bilirubin Large (NEG) Urine Urobilinogen Dipstick 1.0 mg/dL (0.2 mg/dL) Urine Leukocyte Esterase Negative (NEG) Urine RBC 0 /HPF (0-2) Urine WBC Occ /HPF (0-4) Urine Squamous Epithelial Cells Few /LPF Urine Transitional Epithelial Cells Occ /LPF Urine Bacteria 0 /HPF (0-FEW) Urine Hyaline Casts Occasional /HPF Urine Mucus Marked /LPF Urine Opiates Screen Neg (NEG) Urine Methadone Screen Neg (NEG) Urine Barbiturates Neg (NEG) Urine Phencyclidine Screen Neg (NEG) Urine Amphetamine/Methamphetamine Neg (NEG) Urine Benzodiazepines Screen Neg (NEG) Urine Cocaine Screen Neg (NEG) Urine Cannabinoids Screen Neg (NEG) Urine Ethyl Alcohol Neg (NEG) Images Images CT a/p with CBD dilation, but no mass, MRCP with distal CBD stone and liver hemangioma Assessment/Plan Assessment/Plan Choledocholithiasis clears today plan laparoscopic versus open cholecystectomy with cholangiogram and common bile duct exploration in AM. Thanks for consult! JANA VITAL MD Jan 28, 2019 15:43
[2019-01-28 19:00] VITALS: BP 120/76
--- NOTE | 2019-01-28 19:16 | RAD ---
ABDOMEN COMPLETE History: Jaundice Comparison: None. Findings: Multiple sonographic images of the abdomen are submitted. There are multiple echogenic foci in the gallbladder lumen including some foci near the neck. There is no significant pericholecystic fluid or gallbladder wall thickening. Common bile duct is dilated about 1.4 cm. Hepatic echotexture is within normal limits although there were 3 separate hyperechoic lesions demonstrated of the liver. One lesion near the nii hepatis measured about 1.7 cm, another lesion closer the dome of about 1.6 cm, and lesion of the right lobe about 1.9 cm. Pancreas is not well-visualized due to bowel gas. Right kidney measured 12.1 x 6.6 x 5.7 cm, no hydronephrosis. Left kidney measured 11.8 x 5.6 x 5.3 cm, no hydronephrosis. No abnormality is demonstrated of the spleen. There is segmental visualization of the inferior vena cava. Abdominal aortic caliber is within normal limits. Impression: 1. There is cholelithiasis including foci near the gallbladder neck, no significant pericholecystic fluid or gallbladder wall thickening. There is extrahepatic biliary ductal dilatation up to 1.4 cm. 2. There are nonspecific hyperechoic liver lesions which may be hemangiomas, also considered most likely in a patient of this age. Electronically signed by: Enmanuel Bangura MD (01/28/2019 7:13 PM) [facility]
[2019-01-28] MEDS ORDERED: DEXTROSE 50% 25 GM / 50ML DISP.SYRIN. IV PRN (19:45)
[2019-01-28 23:00] VITALS: BP 134/84
[2019-01-29] VITALS (8 sets, daily range): BP systolic 107–132; BP diastolic 59–92
[2019-01-29] MEDS: fentaNYL PF VIAL 100 MCG/2 ML VIAL IV PRN ×9 (02:00→23:33)
[2019-01-29] MEDS ORDERED: IV RINGERS,LACTATED 1000ML 1,000 ML IV SCH (07:00)
[2019-01-29] MEDS ORDERED: fentaNYL PF VIAL 100 MCG/2 ML VIAL IV PRN (07:00)
[2019-01-29] MEDS ORDERED: PROCHLORPERAZINE 10 MG/2 ML VIAL. IV PRN (07:00)
[2019-01-29] MEDS ORDERED: IOHEXOL 300 MG/ML 50 ML VIAL. ONE ×2 (07:14→12:36)
[2019-01-29] MEDS ORDERED: BUPIVAC MPF-EPI 0.5%-1:200000 30 ML VIAL. ONE (07:14)
[2019-01-29] MEDS ORDERED: SURGICEL HEMOSTAT 2X3 EACH. ONE (07:14)
[2019-01-29] MEDS ORDERED: HEPARIN for IV BOLUS 10,000 UNIT/10 ML VIAL. ONE (07:14)
[2019-01-29] MEDS ORDERED: BISACODYL 10 MG SUPP.RECT. ONE (07:15)
[2019-01-29 08:46] LABS: BASO # 0.1 x10^3/uL (0.0-0.2); BASO % 1 % (0-3); EOS # 0.6 x10^3/uL (0.0-0.7); EOS % 10 % (0-3); HEMATOCRIT 37.1 % (39.0-53.0); HEMOGLOBIN 12.2 g/dL (13.0-17.5); LYMPH # 1.9 x10^3/uL (1.0-4.8); LYMPH % 29 % (24-48); MEAN CORPUSCULAR HEMOGLOBIN 31 pg (25-35); MEAN CORPUSCULAR HGB CONC 33 g/dL (31-37); MEAN CORPUSCULAR VOLUME 94 fL (79-100); MONO # 0.7 x10^3/uL (0.0-1.1); MONO % 11 % (0-9); NEUT # 3.3 x10^3uL (1.8-7.7); NEUT % 49 % (31-73); PLATELET COUNT 190 x10^3/uL (140-400); RED BLOOD COUNT 3.96 x10^6/uL (4.30-5.70); RED CELL DISTRIBUTION WIDTH 15.1 % (11.5-14.5); WHITE BLOOD COUNT 6.6 x10^3/uL (4.0-11.0)
[2019-01-29 09:04] LABS: ALBUMIN 2.5 g/dL (3.4-5.0); ALBUMIN/GLOBULIN RATIO 0.6 (1.0-1.7); CALCIUM 8.6 mg/dL (8.5-10.1); GFR 84.1; TOTAL BILIRUBIN 7.6 mg/dL (0.2-1.0); TOTAL PROTEIN 6.7 g/dL (6.4-8.2)
--- NOTE | 2019-01-29 10:25 | PDOC ---
Subjective: Subjective: Pt in OR MRCP with Round filling defect in the distal common bile duct is likely choledocholithiasis rather than mass,. There is biliary ductal dilatation. There is cholelithiasis. Objective: Vital Signs: Vital Signs Date Time Temp Pulse Resp B/P (MAP) Pulse Ox O2 Delivery O2 Flow Rate FiO2 01/29/19 09:52 97.0 76 16 117/72 94 Room Air 97.0 Labs: MRCP WO CONTRAST History: Jaundice, dilated common bile duct, abnormal CT Comparison: CT January 27, 2019 Findings: There is cholelithiasis. Extra hepatic common bile duct is dilated up to about 1.5 cm. There is also intrahepatic biliary ductal dilatation. There is a more focal round filling defect in the distal common bile duct of the head of the pancreas about 1.2 cm in size. There is apparently trace fluid in the nii hepatis region and along the posterior and right lateral margin of pancreas. Gallbladder is somewhat distended. There are 3 T2 hyperintense lesions of the right lobe liver with the largest about 1.6 cm. There is some associated diffusion signal abnormality There is no hydronephrosis of either kidney. Impression: 1. Round filling defect in the distal common bile duct is likely choledocholithiasis rather than mass,. There is biliary ductal dilatation. There is cholelithiasis. 2. T2 hyperintense liver lesions are more likely due to hemangiomas or complex cysts with debris, especially in a patient this age. Electronically signed by: Enmanuel Bangura MD (01/28/2019 2:43 PM) [facility] Laboratory Tests Test 01/28/19 21:03 01/29/19 07:37 01/29/19 07:40 Glucose (Fingerstick) 81 mg/dL (70-99) 121 mg/dL (70-99) White Blood Count 6.6 x10^3/uL (4.0-11.0) Red Blood Count 3.96 x10^6/uL (4.30-5.70) Hemoglobin 12.2 g/dL (13.0-17.5) Hematocrit 37.1 % (39.0-53.0) Mean Corpuscular Volume 94 fL (79-100) Mean Corpuscular Hemoglobin 31 pg (25-35) Mean Corpuscular Hemoglobin Concent 33 g/dL (31-37) Red Cell Distribution Width 15.1 % (11.5-14.5) Platelet Count 190 x10^3/uL (140-400) Neutrophils (%) (Auto) 49 % (31-73) Lymphocytes (%) (Auto) 29 % (24-48) Monocytes (%) (Auto) 11 % (0-9) Eosinophils (%) (Auto) 10 % (0-3) Basophils (%) (Auto) 1 % (0-3) Neutrophils # (Auto) 3.3 x10^3uL (1.8-7.7) Lymphocytes # (Auto) 1.9 x10^3/uL (1.0-4.8) Monocytes # (Auto) 0.7 x10^3/uL (0.0-1.1) Eosinophils # (Auto) 0.6 x10^3/uL (0.0-0.7) Basophils # (Auto) 0.1 x10^3/uL (0.0-0.2) Sodium Level 140 mmol/L (136-145) Potassium Level 4.0 mmol/L (3.5-5.1) Chloride Level 105 mmol/L (98-107) Carbon Dioxide Level 26 mmol/L (21-32) Anion Gap 9 (6-14) Blood Urea Nitrogen 7 mg/dL (8-26) Creatinine 1.0 mg/dL (0.7-1.3) Estimated GFR (Cockcroft-Gault) 84.1 BUN/Creatinine Ratio 7 (6-20) Glucose Level 121 mg/dL (70-99) Calcium Level 8.6 mg/dL (8.5-10.1) Total Bilirubin 7.6 mg/dL (0.2-1.0) Aspartate Amino Transf (AST/SGOT) 88 U/L (15-37) Alanine Aminotransferase (ALT/SGPT) 161 U/L (16-63) Alkaline Phosphatase 332 U/L (46-116) Total Protein 6.7 g/dL (6.4-8.2) Albumin 2.5 g/dL (3.4-5.0) Albumin/Globulin Ratio 0.6 (1.0-1.7) Physical Exam: Physical Exam: Pt not examined Assessment & Plan: Assessment : Laboratory Tests Test 01/27/19 18:38 Lipase 184 U/L (73-393) Plan: A 1) Cholelithiasis 2) Choledocholithiasis P 1) Await surgical intervention results to address possible ERCP ELIZABETH SANTILLAN MD Jan 29, 2019 10:25
--- NOTE | 2019-01-29 11:22 | PDOC ---
SURGICAL PROGRESS NOTE Subjective 38 yo M with obstructive jaundice secondary to choledocholithiasis TO OR for laparoscopic versus open cholecystectomy with cholangiogram and common bile duct exploration. R/R/B/A d/w pt. Risks, including, but not limited to: bleeding, infection, damage to surrounding structures, risk of anesthesia, risk of open. He appears to understand, his questions are answered and he elects to proceed. Vital Signs Vital Signs Date Time Temp Pulse Resp B/P (MAP) Pulse Ox O2 Delivery O2 Flow Rate FiO2 01/29/19 09:52 97.0 76 16 117/72 94 Room Air 97.0 I&O Intake and Output 01/29/19 06:59 Intake Total 1890 ml Output Total 825 ml Balance 1065 ml Intake Oral 840 ml Other 1050 ml Output Urine Total 825 ml # Voids 3 Labs Laboratory Tests Test 01/27/19 18:38 01/27/19 19:55 01/28/19 06:00 01/28/19 21:03 White Blood Count 8.6 x10^3/uL (4.0-11.0) Red Blood Count 4.55 x10^6/uL (4.30-5.70) Hemoglobin 14.3 g/dL (13.0-17.5) Hematocrit 42.3 % (39.0-53.0) Mean Corpuscular Volume 93 fL (79-100) Mean Corpuscular Hemoglobin 31 pg (25-35) Mean Corpuscular Hemoglobin Concent 34 g/dL (31-37) Red Cell Distribution Width 14.9 % (11.5-14.5) Platelet Count 207 x10^3/uL (140-400) Neutrophils (%) (Auto) 53 % (31-73) Lymphocytes (%) (Auto) 28 % (24-48) Monocytes (%) (Auto) 8 % (0-9) Eosinophils (%) (Auto) 9 % (0-3) Basophils (%) (Auto) 2 % (0-3) Neutrophils # (Auto) 4.6 x10^3uL (1.8-7.7) Lymphocytes # (Auto) 2.4 x10^3/uL (1.0-4.8) Monocytes # (Auto) 0.7 x10^3/uL (0.0-1.1) Eosinophils # (Auto) 0.8 x10^3/uL (0.0-0.7) Basophils # (Auto) 0.1 x10^3/uL (0.0-0.2) Prothrombin Time 13.2 SEC (11.7-14.0) Prothromb Time International Ratio 1.0 (0.8-1.1) Activated Partial Thromboplast Time 28 SEC (24-38) Sodium Level 138 mmol/L (136-145) Potassium Level 3.6 mmol/L (3.5-5.1) Chloride Level 102 mmol/L (98-107) Carbon Dioxide Level 24 mmol/L (21-32) Anion Gap 12 (6-14) Blood Urea Nitrogen 13 mg/dL (8-26) Creatinine 1.0 mg/dL (0.7-1.3) Estimated GFR (Cockcroft-Gault) 84.1 BUN/Creatinine Ratio 13 (6-20) Glucose Level 162 mg/dL (70-99) Calcium Level 9.3 mg/dL (8.5-10.1) Total Bilirubin 7.3 mg/dL (0.2-1.0) Aspartate Amino Transf (AST/SGOT) 86 U/L (15-37) Alanine Aminotransferase (ALT/SGPT) 225 U/L (16-63) Alkaline Phosphatase 373 U/L (46-116) Ammonia 17 mcmol/L (11-34) Total Protein 8.1 g/dL (6.4-8.2) Albumin 3.1 g/dL (3.4-5.0) Albumin/Globulin Ratio 0.6 (1.0-1.7) Lipase 184 U/L (73-393) Ethyl Alcohol Level < 10 mg/dL (0-10) Urine Collection Type Unknown Urine Color Gregoria Urine Clarity Clear Urine pH 6.0 Urine Specific [place] >=1.030 Urine Protein Negative mg/dL (NEG-TRACE) Urine Glucose (UA) Negative mg/dL (NEG) Urine Ketones (Stick) 15 mg/dL (NEG) Urine Blood Negative (NEG) Urine Nitrite Negative (NEG) Urine Bilirubin Large (NEG) Urine Urobilinogen Dipstick 1.0 mg/dL (0.2 mg/dL) Urine Leukocyte Esterase Negative (NEG) Urine RBC 0 /HPF (0-2) Urine WBC Occ /HPF (0-4) Urine Squamous Epithelial Cells Few /LPF Urine Transitional Epithelial Cells Occ /LPF Urine Bacteria 0 /HPF (0-FEW) Urine Hyaline Casts Occasional /HPF Urine Mucus Marked /LPF Urine Opiates Screen Neg (NEG) Urine Methadone Screen Neg (NEG) Urine Barbiturates Neg (NEG) Urine Phencyclidine Screen Neg (NEG) Urine Amphetamine/Methamphetamine Neg (NEG) Urine Benzodiazepines Screen Neg (NEG) Urine Cocaine Screen Neg (NEG) Urine Cannabinoids Screen Neg (NEG) Urine Ethyl Alcohol Neg (NEG) Nasal Screen MRSA (PCR) Positive (Negative) Glucose (Fingerstick) 81 mg/dL (70-99) Test 01/29/19 07:37 01/29/19 07:40 01/29/19 10:26 Glucose (Fingerstick) 121 mg/dL (70-99) 135 mg/dL (70-99) White Blood Count 6.6 x10^3/uL (4.0-11.0) Red Blood Count 3.96 x10^6/uL (4.30-5.70) Hemoglobin 12.2 g/dL (13.0-17.5) Hematocrit 37.1 % (39.0-53.0) Mean Corpuscular Volume 94 fL (79-100) Mean Corpuscular Hemoglobin 31 pg (25-35) Mean Corpuscular Hemoglobin Concent 33 g/dL (31-37) Red Cell Distribution Width 15.1 % (11.5-14.5) Platelet Count 190 x10^3/uL (140-400) Neutrophils (%) (Auto) 49 % (31-73) Lymphocytes (%) (Auto) 29 % (24-48) Monocytes (%) (Auto) 11 % (0-9) Eosinophils (%) (Auto) 10 % (0-3) Basophils (%) (Auto) 1 % (0-3) Neutrophils # (Auto) 3.3 x10^3uL (1.8-7.7) Lymphocytes # (Auto) 1.9 x10^3/uL (1.0-4.8) Monocytes # (Auto) 0.7 x10^3/uL (0.0-1.1) Eosinophils # (Auto) 0.6 x10^3/uL (0.0-0.7) Basophils # (Auto) 0.1 x10^3/uL (0.0-0.2) Sodium Level 140 mmol/L (136-145) Potassium Level 4.0 mmol/L (3.5-5.1) Chloride Level 105 mmol/L (98-107) Carbon Dioxide Level 26 mmol/L (21-32) Anion Gap 9 (6-14) Blood Urea Nitrogen 7 mg/dL (8-26) Creatinine 1.0 mg/dL (0.7-1.3) Estimated GFR (Cockcroft-Gault) 84.1 BUN/Creatinine Ratio 7 (6-20) Glucose Level 121 mg/dL (70-99) Calcium Level 8.6 mg/dL (8.5-10.1) Total Bilirubin 7.6 mg/dL (0.2-1.0) Aspartate Amino Transf (AST/SGOT) 88 U/L (15-37) Alanine Aminotransferase (ALT/SGPT) 161 U/L (16-63) Alkaline Phosphatase 332 U/L (46-116) Total Protein 6.7 g/dL (6.4-8.2) Albumin 2.5 g/dL (3.4-5.0) Albumin/Globulin Ratio 0.6 (1.0-1.7) Laboratory Tests Test 01/28/19 21:03 01/29/19 07:37 01/29/19 07:40 01/29/19 10:26 Glucose (Fingerstick) 81 mg/dL (70-99) 121 mg/dL (70-99) 135 mg/dL (70-99) White Blood Count 6.6 x10^3/uL (4.0-11.0) Red Blood Count 3.96 x10^6/uL (4.30-5.70) Hemoglobin 12.2 g/dL (13.0-17.5) Hematocrit 37.1 % (39.0-53.0) Mean Corpuscular Volume 94 fL (79-100) Mean Corpuscular Hemoglobin 31 pg (25-35) Mean Corpuscular Hemoglobin Concent 33 g/dL (31-37) Red Cell Distribution Width 15.1 % (11.5-14.5) Platelet Count 190 x10^3/uL (140-400) Neutrophils (%) (Auto) 49 % (31-73) Lymphocytes (%) (Auto) 29 % (24-48) Monocytes (%) (Auto) 11 % (0-9) Eosinophils (%) (Auto) 10 % (0-3) Basophils (%) (Auto) 1 % (0-3) Neutrophils # (Auto) 3.3 x10^3uL (1.8-7.7) Lymphocytes # (Auto) 1.9 x10^3/uL (1.0-4.8) Monocytes # (Auto) 0.7 x10^3/uL (0.0-1.1) Eosinophils # (Auto) 0.6 x10^3/uL (0.0-0.7) Basophils # (Auto) 0.1 x10^3/uL (0.0-0.2) Sodium Level 140 mmol/L (136-145) Potassium Level 4.0 mmol/L (3.5-5.1) Chloride Level 105 mmol/L (98-107) Carbon Dioxide Level 26 mmol/L (21-32) Anion Gap 9 (6-14) Blood Urea Nitrogen 7 mg/dL (8-26) Creatinine 1.0 mg/dL (0.7-1.3) Estimated GFR (Cockcroft-Gault) 84.1 BUN/Creatinine Ratio 7 (6-20) Glucose Level 121 mg/dL (70-99) Calcium Level 8.6 mg/dL (8.5-10.1) Total Bilirubin 7.6 mg/dL (0.2-1.0) Aspartate Amino Transf (AST/SGOT) 88 U/L (15-37) Alanine Aminotransferase (ALT/SGPT) 161 U/L (16-63) Alkaline Phosphatase 332 U/L (46-116) Total Protein 6.7 g/dL (6.4-8.2) Albumin 2.5 g/dL (3.4-5.0) Albumin/Globulin Ratio 0.6 (1.0-1.7) Problem List Problems Medical Problems: (1) Common bile duct dilatation Status: Acute (2) Jaundice Status: Acute (3) Morbid obesity Status: Acute JANA VITAL MD Jan 29, 2019 11:22
[2019-01-29] MEDS ORDERED: ONDANSETRON PF 4 MG/2 ML VIAL. ONE (11:34)
[2019-01-29] MEDS ORDERED: LIDOCAINE 2% PF 5 ML VIAL. ONE (11:34)
[2019-01-29] MEDS ORDERED: PROPOFOL 20 ML IV ONE (11:34)
[2019-01-29] MEDS ORDERED: fentaNYL PF VIAL 100 MCG/2 ML VIAL ONE ×4 (11:34→15:48)
[2019-01-29] MEDS ORDERED: ROCURONIUM 50 MG/5 ML VIAL. ONE ×2 (11:35→13:07)
[2019-01-29] MEDS ORDERED: DEXAMETHASONE SOD PHOS 4 MG/ML VIAL ONE (11:35)
[2019-01-29] MEDS ORDERED: SUCCINYLCHOLINE 200 MG/10 ML VIAL. ONE (11:54)
[2019-01-29] MEDS ORDERED: ceFAZolin 1GM IVPB FOR OMNI 100 ML IV ONE (12:06)
[2019-01-29] MEDS ORDERED: GLYCOPYRROLATE 1 MG/5 ML VIAL. ONE ×2 (12:57→15:13)
[2019-01-29] MEDS ORDERED: NEOSTIGMINE METHYLSULFATE 5 MG/5 ML SYRINGE. ONE ×2 (12:58→15:13)
[2019-01-29] MEDS ORDERED: ceFAZolin SODIUM 3 GM in IV DEXTROSE 5% 100ML 100 ML IV ONE (13:00)
[2019-01-29] MEDS ORDERED: SURGICEL HEMOSTAT 4X8 EACH. ONE ×2 (13:42→13:46)
--- NOTE | 2019-01-29 14:31 | RAD ---
CHOLANGIOGRAM INTRAOPERATIVE History: Cholecystectomy Comparison: MRCP January 28, 2019. Findings: Interpretation is made of submitted images only, exam performed by different physician. Fluoroscopy time 2.27 minutes. 7 intraprocedural views from a cholangiogram are submitted. There is some undulation of the ricardo of the common bile duct and to lesser degree of the central hepatic duct. There is appearance of intraluminal filling defects of the common bile although not confidently seen on last image submitted. There is contrast in the duodenum. Impression: 1. There is some variable appearance of intraluminal filling defects in the common bile duct although confidently seen on last image submitted. Electronically signed by: Enmanuel Bangura MD (01/29/2019 2:28 PM) [facility]
[2019-01-29] MEDS ORDERED: KETOROLAC 30 MG/ML INJ FOR OR. INJ ONE (14:59)
[2019-01-29] MEDS ORDERED: SEVOFLURANE > 120 MINUTES. IH ONE (15:20)
[2019-01-29] MEDS ORDERED: HYDROcodone/APAP 5/325MG 1 TAB TABLET PO PRN (16:00)
[2019-01-29] MEDS ORDERED: DEXTROSE 50% 25 GM / 50ML DISP.SYRIN. IV PRN (16:00)
[2019-01-29] MEDS ORDERED: 0.9 % SODIUM CHLORIDE 10 ML DISP.SYRIN. IV PRN (16:00)
--- NOTE | 2019-01-29 16:02 | PDOC4 ---
OPERATIVE NOTE Date: Date: Jan 29, 2019 Pre-Op Diagnosis: Obstructive jaundice Post-Op Diagnosis: same, common bile duct obstruction, purulent drainage c/w cholangitis, acute and chronic cholecystitis Procedure Performed: Laparoscopic cholecystectomy with cholangiogram, common bile duct exploration Surgeon: Pasquale Vital Anesthesia Type: GETA plus local Blood Loss: 200 Specimans Obtained: gallbladder with gallstones Findings: morbid obesity, fatty liver, extensive inflammatory changes, acute and chronic cholecystitis, friable gallbladder, multiple gallstones, common bile duct stones with obstruction of CBD Complications: none Operative Note: After obtaining informed consent, patient was taken to OR, induced under GETA and prepped in the usual fashion. 5 mm ports placed umbilical and 2 x RUQ, 12 port placed epigastric, all under laparoscopic guidance. Abdominal cavity explored and otherwise unremarkable. Patient is morbidly obese, making the procedure difficult throughout. Liver was fatty in nature, increasing difficulty of procedure. Gallbladder had extensive chronic and acute changes. It was distended and required decompression, releasing purulent appearing bile and gallstones. Gallbladder dissected out and critical view achieved. Cystic artery ligated with clips. Cholangiogram obtained via cystic duct which demonstrated common bile duct stones. Of note, large amount of purulent material evacuated from cystic duct, c/w cholangitis. Buddy catheters used to explored the duct and all common bile duct stones cleared. Final cholangiogram demonstrated no filling stones and free extravasation into duodenum. Cystic duct ligated with hemolok x 2 and clips. Gallbladder taken off fossa using cautery. Extensive inflammatory changes. Gallbladder placed in bag, delivered and sent to pathology for evaluation. Hemostasis obtained via cautery and surgicel. Copious irrigation. No evidence of additional bleeding at time of closure. 19 VIKY drain placed in fossa and brought out via RUQ site and secured with 3 0 nylon. Ports removed without bleeding. Fascia repaired with 0 vicryl. Skin repaired with 4 0 monocryl. Dressing placed. Patient tolerated procedure well and sent to PACU in stable condition. All counts correct. Wound class is 4, dirty. JANA VITAL MD Jan 29, 2019 16:02
[2019-01-29] MEDS ORDERED: FAMOTIDINE 20 MG/2 ML VIAL IVP ONE (16:15)
[2019-01-29] MEDS: IV RINGERS,LACTATED 1000ML 1,000 ML IV SCH (16:34)
[2019-01-29] MEDS: DOCUSATE SODIUM 100 MG CAPSULE. PO SCH (21:00)
[2019-01-29] MEDS: HYDROcodone/APAP 10/325 1 TAB TABLET PO PRN (21:21)
[2019-01-30] MEDS: fentaNYL PF VIAL 100 MCG/2 ML VIAL IV PRN ×8 (02:20→23:47)
[2019-01-30] MEDS: IV RINGERS,LACTATED 1000ML 1,000 ML IV SCH ×3 (02:20→19:28)
[2019-01-30 03:00] VITALS: BP 127/86
[2019-01-30] MEDS: HYDROcodone/APAP 10/325 1 TAB TABLET PO PRN ×4 (03:44→23:08)
[2019-01-30 07:00] VITALS: BP 151/101
[2019-01-30 07:54] LABS: BASO # 0.1 x10^3/uL (0.0-0.2); BASO % 1 % (0-3); EOS % 0 % (0-3); HEMATOCRIT 34.5 % (39.0-53.0); HEMOGLOBIN 11.6 g/dL (13.0-17.5); LYMPH # 3.8 x10^3/uL (1.0-4.8); LYMPH % 29 % (24-48); MEAN CORPUSCULAR HEMOGLOBIN 32 pg (25-35); MEAN CORPUSCULAR HGB CONC 34 g/dL (31-37); MEAN CORPUSCULAR VOLUME 95 fL (79-100); MONO # 1.6 x10^3/uL (0.0-1.1); MONO % 12 % (0-9); NEUT # 7.6 x10^3uL (1.8-7.7); NEUT % 58 % (31-73); PLATELET COUNT 208 x10^3/uL (140-400); RED BLOOD COUNT 3.64 x10^6/uL (4.30-5.70); RED CELL DISTRIBUTION WIDTH 14.8 % (11.5-14.5); WHITE BLOOD COUNT 13.1 x10^3/uL (4.0-11.0)
[2019-01-30 08:14] LABS: ALBUMIN 2.5 g/dL (3.4-5.0); CALCIUM 8.9 mg/dL (8.5-10.1); CREATININE 1.1 mg/dL (0.7-1.3); DIRECT BILIRUBIN 4.7 mg/dL (0.0-0.2); GFR 75.3; POTASSIUM 4.1 mmol/L (3.5-5.1); TOTAL BILIRUBIN 5.3 mg/dL (0.2-1.0); TOTAL PROTEIN 7.2 g/dL (6.4-8.2)
[2019-01-30] MEDS: DOCUSATE SODIUM 100 MG CAPSULE. PO SCH ×2 (08:18→19:26)
[2019-01-30] MEDS: PANTOPRAZOLE 40 MG TABLET.DR. PO SCH (08:18)
--- NOTE | 2019-01-30 09:40 | PDOC ---
SURGICAL PROGRESS NOTE Subjective shoulder pain no nausea Vital Signs Vital Signs Date Time Temp Pulse Resp B/P (MAP) Pulse Ox O2 Delivery O2 Flow Rate FiO2 01/30/19 09:24 Room Air 01/30/19 07:00 98.8 97 18 151/101 (118) 96 2.0 98.8 I&O Intake and Output 01/30/19 06:59 Intake Total 2100 ml Output Total 2780 ml Balance -680 ml IV Total 2100 ml Output Urine Total 2150 ml Drainage Total 430 ml Estimated Blood Loss 200 ml # Voids 4 General: Alert, Oriented X3, Cooperative, No acute distress Abdomen: Soft, Other (drain serosang) Labs Laboratory Tests Test 01/28/19 21:03 01/29/19 07:37 01/29/19 07:40 01/29/19 10:26 Glucose (Fingerstick) 81 mg/dL (70-99) 121 mg/dL (70-99) 135 mg/dL (70-99) White Blood Count 6.6 x10^3/uL (4.0-11.0) Red Blood Count 3.96 x10^6/uL (4.30-5.70) Hemoglobin 12.2 g/dL (13.0-17.5) Hematocrit 37.1 % (39.0-53.0) Mean Corpuscular Volume 94 fL (79-100) Mean Corpuscular Hemoglobin 31 pg (25-35) Mean Corpuscular Hemoglobin Concent 33 g/dL (31-37) Red Cell Distribution Width 15.1 % (11.5-14.5) Platelet Count 190 x10^3/uL (140-400) Neutrophils (%) (Auto) 49 % (31-73) Lymphocytes (%) (Auto) 29 % (24-48) Monocytes (%) (Auto) 11 % (0-9) Eosinophils (%) (Auto) 10 % (0-3) Basophils (%) (Auto) 1 % (0-3) Neutrophils # (Auto) 3.3 x10^3uL (1.8-7.7) Lymphocytes # (Auto) 1.9 x10^3/uL (1.0-4.8) Monocytes # (Auto) 0.7 x10^3/uL (0.0-1.1) Eosinophils # (Auto) 0.6 x10^3/uL (0.0-0.7) Basophils # (Auto) 0.1 x10^3/uL (0.0-0.2) Sodium Level 140 mmol/L (136-145) Potassium Level 4.0 mmol/L (3.5-5.1) Chloride Level 105 mmol/L (98-107) Carbon Dioxide Level 26 mmol/L (21-32) Anion Gap 9 (6-14) Blood Urea Nitrogen 7 mg/dL (8-26) Creatinine 1.0 mg/dL (0.7-1.3) Estimated GFR (Cockcroft-Gault) 84.1 BUN/Creatinine Ratio 7 (6-20) Glucose Level 121 mg/dL (70-99) Calcium Level 8.6 mg/dL (8.5-10.1) Total Bilirubin 7.6 mg/dL (0.2-1.0) Aspartate Amino Transf (AST/SGOT) 88 U/L (15-37) Alanine Aminotransferase (ALT/SGPT) 161 U/L (16-63) Alkaline Phosphatase 332 U/L (46-116) Total Protein 6.7 g/dL (6.4-8.2) Albumin 2.5 g/dL (3.4-5.0) Albumin/Globulin Ratio 0.6 (1.0-1.7) Test 01/29/19 16:10 01/30/19 07:15 Glucose (Fingerstick) 173 mg/dL (70-99) White Blood Count 13.1 x10^3/uL (4.0-11.0) Red Blood Count 3.64 x10^6/uL (4.30-5.70) Hemoglobin 11.6 g/dL (13.0-17.5) Hematocrit 34.5 % (39.0-53.0) Mean Corpuscular Volume 95 fL (79-100) Mean Corpuscular Hemoglobin 32 pg (25-35) Mean Corpuscular Hemoglobin Concent 34 g/dL (31-37) Red Cell Distribution Width 14.8 % (11.5-14.5) Platelet Count 208 x10^3/uL (140-400) Neutrophils (%) (Auto) 58 % (31-73) Lymphocytes (%) (Auto) 29 % (24-48) Monocytes (%) (Auto) 12 % (0-9) Eosinophils (%) (Auto) 0 % (0-3) Basophils (%) (Auto) 1 % (0-3) Neutrophils # (Auto) 7.6 x10^3uL (1.8-7.7) Lymphocytes # (Auto) 3.8 x10^3/uL (1.0-4.8) Monocytes # (Auto) 1.6 x10^3/uL (0.0-1.1) Eosinophils # (Auto) 0.0 x10^3/uL (0.0-0.7) Basophils # (Auto) 0.1 x10^3/uL (0.0-0.2) Sodium Level 133 mmol/L (136-145) Potassium Level 4.1 mmol/L (3.5-5.1) Chloride Level 98 mmol/L (98-107) Carbon Dioxide Level 26 mmol/L (21-32) Anion Gap 9 (6-14) Blood Urea Nitrogen 8 mg/dL (8-26) Creatinine 1.1 mg/dL (0.7-1.3) Estimated GFR (Cockcroft-Gault) 75.3 Glucose Level 190 mg/dL (70-99) Calcium Level 8.9 mg/dL (8.5-10.1) Total Bilirubin 5.3 mg/dL (0.2-1.0) Direct Bilirubin 4.7 mg/dL (0.0-0.2) Aspartate Amino Transf (AST/SGOT) 115 U/L (15-37) Alanine Aminotransferase (ALT/SGPT) 200 U/L (16-63) Alkaline Phosphatase 327 U/L (46-116) Total Protein 7.2 g/dL (6.4-8.2) Albumin 2.5 g/dL (3.4-5.0) Amylase Level 24 U/L (25-115) Lipase 58 U/L (73-393) Laboratory Tests Test 01/29/19 10:26 01/29/19 16:10 01/30/19 07:15 Glucose (Fingerstick) 135 mg/dL (70-99) 173 mg/dL (70-99) White Blood Count 13.1 x10^3/uL (4.0-11.0) Red Blood Count 3.64 x10^6/uL (4.30-5.70) Hemoglobin 11.6 g/dL (13.0-17.5) Hematocrit 34.5 % (39.0-53.0) Mean Corpuscular Volume 95 fL (79-100) Mean Corpuscular Hemoglobin 32 pg (25-35) Mean Corpuscular Hemoglobin Concent 34 g/dL (31-37) Red Cell Distribution Width 14.8 % (11.5-14.5) Platelet Count 208 x10^3/uL (140-400) Neutrophils (%) (Auto) 58 % (31-73) Lymphocytes (%) (Auto) 29 % (24-48) Monocytes (%) (Auto) 12 % (0-9) Eosinophils (%) (Auto) 0 % (0-3) Basophils (%) (Auto) 1 % (0-3) Neutrophils # (Auto) 7.6 x10^3uL (1.8-7.7) Lymphocytes # (Auto) 3.8 x10^3/uL (1.0-4.8) Monocytes # (Auto) 1.6 x10^3/uL (0.0-1.1) Eosinophils # (Auto) 0.0 x10^3/uL (0.0-0.7) Basophils # (Auto) 0.1 x10^3/uL (0.0-0.2) Sodium Level 133 mmol/L (136-145) Potassium Level 4.1 mmol/L (3.5-5.1) Chloride Level 98 mmol/L (98-107) Carbon Dioxide Level 26 mmol/L (21-32) Anion Gap 9 (6-14) Blood Urea Nitrogen 8 mg/dL (8-26) Creatinine 1.1 mg/dL (0.7-1.3) Estimated GFR (Cockcroft-Gault) 75.3 Glucose Level 190 mg/dL (70-99) Calcium Level 8.9 mg/dL (8.5-10.1) Total Bilirubin 5.3 mg/dL (0.2-1.0) Direct Bilirubin 4.7 mg/dL (0.0-0.2) Aspartate Amino Transf (AST/SGOT) 115 U/L (15-37) Alanine Aminotransferase (ALT/SGPT) 200 U/L (16-63) Alkaline Phosphatase 327 U/L (46-116) Total Protein 7.2 g/dL (6.4-8.2) Albumin 2.5 g/dL (3.4-5.0) Amylase Level 24 U/L (25-115) Lipase 58 U/L (73-393) Problem List Problems Medical Problems: (1) Common bile duct dilatation Status: Acute (2) Jaundice Status: Acute (3) Morbid obesity Status: Acute Assessment/Plan s/p bonita, CBDE tbili improved encouraged increased activity [employer] Jan 30, 2019 09:40
--- NOTE | 2019-01-30 10:27 | PDOC ---
PROGRESS NOTES History of Present Illness History of Present Illness Assessment/Plan Jaundice with transaminitis and hyperbilirubinemia of undetermined etiology some variable appearance of intraluminal filling defects in the common bile duct although confidently seen on last image Round filling defect in the distal common bile duct is likely choledocholithiasis rather than mass,. There is biliary ductal dilatation. cholelithiasis. T2 hyperintense liver lesions are more likely due to hemangiomas or complex cysts with debris, persistent pain, mod severe Plan admitted consulting general surgery and GI abdominal ultrasound to rule out gallstones DVT prophylaxis full code home meds IV fluids when necessary Zofran when necessary prn narcotics prognosis guarded Vitals Vitals Vital Signs Date Time Temp Pulse Resp B/P (MAP) Pulse Ox O2 Delivery O2 Flow Rate FiO2 01/30/19 09:24 Room Air 01/30/19 07:00 98.8 97 18 151/101 (118) 96 2.0 98.8 Physical Exam General: Alert, Oriented X3, Cooperative, No acute distress, mild distress Heart: Regular rate, No murmurs Lungs: Clear Abdomen: Soft, Other (drain serosang) Extremities: No clubbing, No cyanosis Skin: Other (jaundice) Labs LABS MRCP WO CONTRAST History: Jaundice, dilated common bile duct, abnormal CT Comparison: CT January 27, 2019 Findings: There is cholelithiasis. Extra hepatic common bile duct is dilated up to about 1.5 cm. There is also intrahepatic biliary ductal dilatation. There is a more focal round filling defect in the distal common bile duct of the head of the pancreas about 1.2 cm in size. There is apparently trace fluid in the nii hepatis region and along the posterior and right lateral margin of pancreas. Gallbladder is somewhat distended. There are 3 T2 hyperintense lesions of the right lobe liver with the largest about 1.6 cm. There is some associated diffusion signal abnormality There is no hydronephrosis of either kidney. Impression: 1. Round filling defect in the distal common bile duct is likely choledocholithiasis rather than mass,. There is biliary ductal dilatation. There is cholelithiasis. 2. T2 hyperintense liver lesions are more likely due to hemangiomas or complex cysts with debris, especially in a patient this age. Electronically signed by: Jessica Moncada MD (01/28/2019 2:43 PM) [facility] DICTATED and SIGNED BY: JESSICA MONCADA MD DATE: 01/28/19 1443 CHOLANGIOGRAM INTRAOPERATIVE History: Cholecystectomy Comparison: MRCP January 28, 2019. Findings: Interpretation is made of submitted images only, exam performed by different physician. Fluoroscopy time 2.27 minutes. 7 intraprocedural views from a cholangiogram are submitted. There is some undulation of the ricardo of the common bile duct and to lesser degree of the central hepatic duct. There is appearance of intraluminal filling defects of the common bile although not confidently seen on last image submitted. There is contrast in the duodenum. Impression: 1. There is some variable appearance of intraluminal filling defects in the common bile duct although confidently seen on last image submitted. Electronically signed by: Jessica Moncada MD (01/29/2019 2:28 PM) [facility] DICTATED and SIGNED BY: JESSICA MONCADA MD DATE: 01/29/19 1428 Laboratory Tests Test 01/29/19 16:10 01/30/19 07:15 Glucose (Fingerstick) 173 mg/dL (70-99) White Blood Count 13.1 x10^3/uL (4.0-11.0) Red Blood Count 3.64 x10^6/uL (4.30-5.70) Hemoglobin 11.6 g/dL (13.0-17.5) Hematocrit 34.5 % (39.0-53.0) Mean Corpuscular Volume 95 fL (79-100) Mean Corpuscular Hemoglobin 32 pg (25-35) Mean Corpuscular Hemoglobin Concent 34 g/dL (31-37) Red Cell Distribution Width 14.8 % (11.5-14.5) Platelet Count 208 x10^3/uL (140-400) Neutrophils (%) (Auto) 58 % (31-73) Lymphocytes (%) (Auto) 29 % (24-48) Monocytes (%) (Auto) 12 % (0-9) Eosinophils (%) (Auto) 0 % (0-3) Basophils (%) (Auto) 1 % (0-3) Neutrophils # (Auto) 7.6 x10^3uL (1.8-7.7) Lymphocytes # (Auto) 3.8 x10^3/uL (1.0-4.8) Monocytes # (Auto) 1.6 x10^3/uL (0.0-1.1) Eosinophils # (Auto) 0.0 x10^3/uL (0.0-0.7) Basophils # (Auto) 0.1 x10^3/uL (0.0-0.2) Sodium Level 133 mmol/L (136-145) Potassium Level 4.1 mmol/L (3.5-5.1) Chloride Level 98 mmol/L (98-107) Carbon Dioxide Level 26 mmol/L (21-32) Anion Gap 9 (6-14) Blood Urea Nitrogen 8 mg/dL (8-26) Creatinine 1.1 mg/dL (0.7-1.3) Estimated GFR (Cockcroft-Gault) 75.3 Glucose Level 190 mg/dL (70-99) Calcium Level 8.9 mg/dL (8.5-10.1) Total Bilirubin 5.3 mg/dL (0.2-1.0) Direct Bilirubin 4.7 mg/dL (0.0-0.2) Aspartate Amino Transf (AST/SGOT) 115 U/L (15-37) Alanine Aminotransferase (ALT/SGPT) 200 U/L (16-63) Alkaline Phosphatase 327 U/L (46-116) Total Protein 7.2 g/dL (6.4-8.2) Albumin 2.5 g/dL (3.4-5.0) Amylase Level 24 U/L (25-115) Lipase 58 U/L (73-393) Assessment and Plan Assessmemt and Plan Problems Medical Problems: (1) Common bile duct dilatation Status: Acute (2) Jaundice Status: Acute (3) Morbid obesity Status: Acute Comment Review of Relevant I have reviewed the following items gustavo (where applicable) has been applied. Labs Laboratory Tests Test 01/28/19 21:03 01/29/19 07:37 01/29/19 07:40 01/29/19 10:26 Glucose (Fingerstick) 81 mg/dL (70-99) 121 mg/dL (70-99) 135 mg/dL (70-99) White Blood Count 6.6 x10^3/uL (4.0-11.0) Red Blood Count 3.96 x10^6/uL (4.30-5.70) Hemoglobin 12.2 g/dL (13.0-17.5) Hematocrit 37.1 % (39.0-53.0) Mean Corpuscular Volume 94 fL (79-100) Mean Corpuscular Hemoglobin 31 pg (25-35) Mean Corpuscular Hemoglobin Concent 33 g/dL (31-37) Red Cell Distribution Width 15.1 % (11.5-14.5) Platelet Count 190 x10^3/uL (140-400) Neutrophils (%) (Auto) 49 % (31-73) Lymphocytes (%) (Auto) 29 % (24-48) Monocytes (%) (Auto) 11 % (0-9) Eosinophils (%) (Auto) 10 % (0-3) Basophils (%) (Auto) 1 % (0-3) Neutrophils # (Auto) 3.3 x10^3uL (1.8-7.7) Lymphocytes # (Auto) 1.9 x10^3/uL (1.0-4.8) Monocytes # (Auto) 0.7 x10^3/uL (0.0-1.1) Eosinophils # (Auto) 0.6 x10^3/uL (0.0-0.7) Basophils # (Auto) 0.1 x10^3/uL (0.0-0.2) Sodium Level 140 mmol/L (136-145) Potassium Level 4.0 mmol/L (3.5-5.1) Chloride Level 105 mmol/L (98-107) Carbon Dioxide Level 26 mmol/L (21-32) Anion Gap 9 (6-14) Blood Urea Nitrogen 7 mg/dL (8-26) Creatinine 1.0 mg/dL (0.7-1.3) Estimated GFR (Cockcroft-Gault) 84.1 BUN/Creatinine Ratio 7 (6-20) Glucose Level 121 mg/dL (70-99) Calcium Level 8.6 mg/dL (8.5-10.1) Total Bilirubin 7.6 mg/dL (0.2-1.0) Aspartate Amino Transf (AST/SGOT) 88 U/L (15-37) Alanine Aminotransferase (ALT/SGPT) 161 U/L (16-63) Alkaline Phosphatase 332 U/L (46-116) Total Protein 6.7 g/dL (6.4-8.2) Albumin 2.5 g/dL (3.4-5.0) Albumin/Globulin Ratio 0.6 (1.0-1.7) Test 01/29/19 16:10 01/30/19 07:15 Glucose (Fingerstick) 173 mg/dL (70-99) White Blood Count 13.1 x10^3/uL (4.0-11.0) Red Blood Count 3.64 x10^6/uL (4.30-5.70) Hemoglobin 11.6 g/dL (13.0-17.5) Hematocrit 34.5 % (39.0-53.0) Mean Corpuscular Volume 95 fL (79-100) Mean Corpuscular Hemoglobin 32 pg (25-35) Mean Corpuscular Hemoglobin Concent 34 g/dL (31-37) Red Cell Distribution Width 14.8 % (11.5-14.5) Platelet Count 208 x10^3/uL (140-400) Neutrophils (%) (Auto) 58 % (31-73) Lymphocytes (%) (Auto) 29 % (24-48) Monocytes (%) (Auto) 12 % (0-9) Eosinophils (%) (Auto) 0 % (0-3) Basophils (%) (Auto) 1 % (0-3) Neutrophils # (Auto) 7.6 x10^3uL (1.8-7.7) Lymphocytes # (Auto) 3.8 x10^3/uL (1.0-4.8) Monocytes # (Auto) 1.6 x10^3/uL (0.0-1.1) Eosinophils # (Auto) 0.0 x10^3/uL (0.0-0.7) Basophils # (Auto) 0.1 x10^3/uL (0.0-0.2) Sodium Level 133 mmol/L (136-145) Potassium Level 4.1 mmol/L (3.5-5.1) Chloride Level 98 mmol/L (98-107) Carbon Dioxide Level 26 mmol/L (21-32) Anion Gap 9 (6-14) Blood Urea Nitrogen 8 mg/dL (8-26) Creatinine 1.1 mg/dL (0.7-1.3) Estimated GFR (Cockcroft-Gault) 75.3 Glucose Level 190 mg/dL (70-99) Calcium Level 8.9 mg/dL (8.5-10.1) Total Bilirubin 5.3 mg/dL (0.2-1.0) Direct Bilirubin 4.7 mg/dL (0.0-0.2) Aspartate Amino Transf (AST/SGOT) 115 U/L (15-37) Alanine Aminotransferase (ALT/SGPT) 200 U/L (16-63) Alkaline Phosphatase 327 U/L (46-116) Total Protein 7.2 g/dL (6.4-8.2) Albumin 2.5 g/dL (3.4-5.0) Amylase Level 24 U/L (25-115) Lipase 58 U/L (73-393) Laboratory Tests Test 01/29/19 16:10 01/30/19 07:15 Glucose (Fingerstick) 173 mg/dL (70-99) White Blood Count 13.1 x10^3/uL (4.0-11.0) Red Blood Count 3.64 x10^6/uL (4.30-5.70) Hemoglobin 11.6 g/dL (13.0-17.5) Hematocrit 34.5 % (39.0-53.0) Mean Corpuscular Volume 95 fL (79-100) Mean Corpuscular Hemoglobin 32 pg (25-35) Mean Corpuscular Hemoglobin Concent 34 g/dL (31-37) Red Cell Distribution Width 14.8 % (11.5-14.5) Platelet Count 208 x10^3/uL (140-400) Neutrophils (%) (Auto) 58 % (31-73) Lymphocytes (%) (Auto) 29 % (24-48) Monocytes (%) (Auto) 12 % (0-9) Eosinophils (%) (Auto) 0 % (0-3) Basophils (%) (Auto) 1 % (0-3) Neutrophils # (Auto) 7.6 x10^3uL (1.8-7.7) Lymphocytes # (Auto) 3.8 x10^3/uL (1.0-4.8) Monocytes # (Auto) 1.6 x10^3/uL (0.0-1.1) Eosinophils # (Auto) 0.0 x10^3/uL (0.0-0.7) Basophils # (Auto) 0.1 x10^3/uL (0.0-0.2) Sodium Level 133 mmol/L (136-145) Potassium Level 4.1 mmol/L (3.5-5.1) Chloride Level 98 mmol/L (98-107) Carbon Dioxide Level 26 mmol/L (21-32) Anion Gap 9 (6-14) Blood Urea Nitrogen 8 mg/dL (8-26) Creatinine 1.1 mg/dL (0.7-1.3) Estimated GFR (Cockcroft-Gault) 75.3 Glucose Level 190 mg/dL (70-99) Calcium Level 8.9 mg/dL (8.5-10.1) Total Bilirubin 5.3 mg/dL (0.2-1.0) Direct Bilirubin 4.7 mg/dL (0.0-0.2) Aspartate Amino Transf (AST/SGOT) 115 U/L (15-37) Alanine Aminotransferase (ALT/SGPT) 200 U/L (16-63) Alkaline Phosphatase 327 U/L (46-116) Total Protein 7.2 g/dL (6.4-8.2) Albumin 2.5 g/dL (3.4-5.0) Amylase Level 24 U/L (25-115) Lipase 58 U/L (73-393) Medications Current Medications Iohexol (Omnipaque 240 Mg/ml) 30 ml 1X ONCE PO Last administered on 01/27/19at 19:15; Start 01/27/19 at 19:15; Stop 01/27/19 at 19:16; Status DC Iohexol (Omnipaque 300 Mg/ml) 75 ml 1X ONCE IV Last administered on 01/27/19at 20:10; Start 01/27/19 at 19:15; Stop 01/27/19 at 19:16; Status DC Info (CONTRAST GIVEN -- Rx MONITORING) 1 each PRN DAILY PRN MC SEE COMMENTS; Start 01/27/19 at 19:30; Stop 01/29/19 at 19:29; Status DC Ketorolac Tromethamine (Toradol 30mg Vial) 30 mg 1X ONCE IV Last administered on 01/27/19at 22:02; Start 01/27/19 at 21:30; Stop 01/27/19 at 21:31; Status DC Sodium Chloride 1,000 ml @ 1,000 mls/hr 1X ONCE IV Last administered on 01/27/19at 21:58; Start 01/27/19 at 21:30; Stop 01/27/19 at 22:29; Status DC Sodium Chloride 1,000 ml @ 150 mls/hr Q6H40M IV Last administered on 01/28/19at 12:34; Start 01/27/19 at 22:00; Stop 01/28/19 at 21:59; Status DC Morphine Sulfate (Morphine Sulfate) 2 mg PRN Q2HR PRN IV PAIN; Start 01/28/19 at 08:15; Stop 01/28/19 at 08:23; Status DC Ketorolac Tromethamine (Toradol 30mg Vial) 20 mg PRN Q6HRS PRN IV MILD PAIN Last administered on 01/28/19at 08:39; Start 01/28/19 at 08:15; Stop 02/02/19 at 08:14 Fentanyl Citrate (Fentanyl 2ml Vial) 50 mcg PRN Q2HR PRN IV MODERATE PAIN, SEVERE PAIN Last administered on 01/29/19at 17:28; Start 01/28/19 at 08:30; Stop 01/29/19 at 18:44; Status DC Cefazolin Sodium/ Dextrose 50 ml @ 100 mls/hr 1X PREOP IV ; Start 01/28/19 at 15:45; Stop 01/29/19 at 10:14; Status DC Fentanyl Citrate (Fentanyl 2ml Vial) 25 mcg PRN Q5MIN PRN IV MILD PAIN; Start 01/29/19 at 07:00; Stop 01/29/19 at 19:00; Status DC Fentanyl Citrate (Fentanyl 2ml Vial) 50 mcg PRN Q5MIN PRN IV MODERATE TO SEVERE PAIN Last administered on 01/29/19at 16:32; Start 01/29/19 at 07:00; Stop 01/29/19 at 19:00; Status DC Ringer's Solution 1,000 ml @ 30 mls/hr Q24H IV Last administered on 01/29/19at 09:49; Start 01/29/19 at 07:00; Stop 01/29/19 at 18:59; Status DC Prochlorperazine Edisylate (Compazine) 5 mg PACU PRN PRN IV NAUSEA, MRX1; Start 01/29/19 at 07:00; Stop 01/29/19 at 19:00; Status DC Dextrose (Dextrose 50%-Water Syringe) 12.5 gm PRN Q15MIN PRN IV SEE COMMENTS; Start 01/28/19 at 19:45 Bupivacaine HCl/ Epinephrine Bitart (Sensorcain-Mpf Epi 0.5%-1:[id number]) 30 ml STK-MED ONCE .ROUTE Last administered on 01/29/19at 12:35; Start 01/29/19 at 07:14; Stop 01/29/19 at 08:15; Status DC Cellulose (Surgicel Hemostat 2x3) 1 each STK-MED ONCE .ROUTE Last administered on 01/29/19at 12:35; Start 01/29/19 at 07:14; Stop 01/29/19 at 08:15; Status DC Heparin Sodium (Porcine) (Heparin Sodium) 10,000 unit STK-MED ONCE .ROUTE Last administered on 01/29/19at 12:35; Start 01/29/19 at 07:14; Stop 01/29/19 at 08:15; Status DC Iohexol (Omnipaque 300 Mg/ml) 50 ml STK-MED ONCE .ROUTE Last administered on 01/29/19at 12:35; Start 01/29/19 at 07:14; Stop 01/29/19 at 08:16; Status DC Bisacodyl (Dulcolax Supp) 10 mg STK-MED ONCE .ROUTE Last administered on 01/29/19at 12:35; Start 01/29/19 at 07:15; Stop 01/29/19 at 08:16; Status DC Cefazolin Sodium/ Dextrose 50 ml @ 100 mls/hr 1X PREOP IV ; Start 01/29/19 at 10:15; Stop 01/29/19 at 18:56; Status DC Ondansetron HCl (Zofran) 4 mg STK-MED ONCE .ROUTE ; Start 01/29/19 at 11:34; Stop 01/29/19 at 11:35; Status DC Propofol 20 ml @ As Directed STK-MED ONCE IV ; Start 01/29/19 at 11:34; Stop 01/29/19 at 11:35; Status DC Lidocaine HCl (Lidocaine Pf 2% Vial) 5 ml STK-MED ONCE .ROUTE ; Start 01/29/19 at 11:34; Stop 01/29/19 at 11:35; Status DC Fentanyl Citrate (Fentanyl 2ml Vial) 100 mcg STK-MED ONCE .ROUTE ; Start 01/29/19 at 11:34; Stop 01/29/19 at 11:35; Status DC Dexamethasone Sodium Phosphate (Decadron) 4 mg STK-MED ONCE .ROUTE ; Start 01/29/19 at 11:35; Stop 01/29/19 at 11:36; Status DC Rocuronium [place] (Zemuron) 50 mg STK-MED ONCE .ROUTE ; Start 01/29/19 at 11:35; Stop 01/29/19 at 11:36; Status DC Succinylcholine Chloride (Anectine) 200 mg STK-MED ONCE .ROUTE ; Start 01/29/19 at 11:54; Stop 01/29/19 at 11:55; Status DC Cefazolin Sodium 100 ml @ As Directed STK-MED ONCE IV ; Start 01/29/19 at 12:06; Stop 01/29/19 at 12:07; Status DC Cefazolin Sodium 50 ml @ As Directed STK-MED ONCE IV ; Start 01/29/19 at 12:07; Stop 01/29/19 at 12:08; Status DC Cefazolin Sodium 3 gm/Dextrose 100 ml @ 200 mls/hr 1X ONCE IV Last administered on 01/29/19at 12:09; Start 01/29/19 at 13:00; Stop 01/29/19 at 13:29; Status DC Glycopyrrolate (Robinul) 1 mg STK-MED ONCE .ROUTE ; Start 01/29/19 at 12:57; Stop 01/29/19 at 12:58; Status DC Neostigmine Methylsulfate (Neostigmine Methylsulfate) 5 mg STK-MED ONCE .ROUTE ; Start 01/29/19 at 12:58; Stop 01/29/19 at 12:59; Status DC Rocuronium [place] (Zemuron) 50 mg STK-MED ONCE .ROUTE ; Start 01/29/19 at 13:07; Stop 01/29/19 at 13:08; Status DC Fentanyl Citrate (Fentanyl 2ml Vial) 100 mcg STK-MED ONCE .ROUTE ; Start 01/29/19 at 13:10; Stop 01/29/19 at 13:11; Status DC Iohexol (Omnipaque 300 Mg/ml) 50 ml STK-MED ONCE .ROUTE Last administered on 01/29/19at 12:35; Start 01/29/19 at 12:36; Stop 01/29/19 at 13:37; Status DC Cellulose (Surgicel Hemostat 4x8) 1 each STK-MED ONCE .ROUTE Last administered on 01/29/19at 12:35; Start 01/29/19 at 13:42; Stop 01/29/19 at 14:42; Status DC Cellulose (Surgicel Hemostat 4x8) 1 each STK-MED ONCE .ROUTE Last administered on 01/29/19at 12:35; Start 01/29/19 at 13:46; Stop 01/29/19 at 14:46; Status DC Ketorolac Tromethamine (Toradol For Or Only) 30 mg STK-MED ONCE INJ ; Start 01/29/19 at 14:59; Stop 01/29/19 at 15:00; Status DC Glycopyrrolate (Robinul) 1 mg STK-MED ONCE .ROUTE ; Start 01/29/19 at 15:13; Stop 01/29/19 at 15:14; Status DC Neostigmine Methylsulfate (Neostigmine Methylsulfate) 5 mg STK-MED ONCE .ROUTE ; Start 01/29/19 at 15:13; Stop 01/29/19 at 15:14; Status DC Sevoflurane (Ultane) 90 ml STK-MED ONCE IH ; Start 01/29/19 at 15:20; Stop 01/29/19 at 15:21; Status DC Fentanyl Citrate (Fentanyl 2ml Vial) 100 mcg STK-MED ONCE .ROUTE ; Start 01/29/19 at 15:32; Stop 01/29/19 at 15:33; Status DC Fentanyl Citrate (Fentanyl 2ml Vial) 100 mcg STK-MED ONCE .ROUTE ; Start 01/29/19 at 15:48; Stop 01/29/19 at 15:49; Status DC Sodium Chloride (Normal Saline Flush) 3 ml QSHIFT PRN IV AFTER MEDS AND BLOOD DRAWS; Start 01/29/19 at 16:00 Ringer's Solution 1,000 ml @ 100 mls/hr Q10H IV Last administered on 01/30/19at 02:20; Start 01/29/19 at 15:46 Dextrose (Dextrose 50%-Water Syringe) 12.5 gm PRN Q15MIN PRN IV SEE COMMENTS; Start 01/29/19 at 16:00 Acetaminophen/ Hydrocodone Bitart (Lortab 5/325) 1 tab PRN Q4HRS PRN PO MILD PAIN Last administered on 01/29/19at 17:28; Start 01/29/19 at 16:00; Stop at 18:45; Status DC Docusate Sodium (Colace) 100 mg BID PO Last administered on 01/30/19at 08:18; Start 01/29/19 at 21:00 Ondansetron HCl (Zofran) 4 mg PRN Q6HRS PRN IV NAUESA, 1ST CHOICE; Start 01/29/19 at 16:00 Famotidine (Pepcid Vial) 20 mg 1X ONCE IVP Last administered on 01/29/19at 16:14; Start 01/29/19 at 16:15; Stop 01/29/19 at 16:16; Status DC Pantoprazole Sodium (Protonix) 40 mg DAILYAC PO Last administered on 01/30/19at 08:18; Start 01/30/19 at 07:30 Fentanyl Citrate (Fentanyl 2ml Vial) 75 mcg PRN Q2HR PRN IV SEVERE PAIN Last administered on 01/30/19at 08:19; Start 01/29/19 at 18:45 Acetaminophen/ Hydrocodone Bitart (Lortab 10/325) 1 tab PRN Q6HRS PRN PO MODERATE PAIN Last administered on 01/30/19at 03:44; Start 01/29/19 at 18:45 Cefazolin Sodium/ Dextrose (Ancef 2gm Premix) 2 gm STK-MED ONCE IV ; Start 01/28/19 at 11:00; Stop 01/30/19 at 07:38; Status DC Active Scripts Active Reported Buspirone Hcl 30 Mg Tablet 1 Tab PO BID Protonix (Pantoprazole Sodium) 20 Mg Tablet.dr 2 Tab PO DAILY Zantac (Ranitidine Hcl) 150 Mg Tablet 1 Tab PO HS Tums (Calcium Carbonate) 200 Mg Tab.chew 200 Mg PO TID Zyprexa (Olanzapine) 15 Mg Tablet 1 Tab PO QHS Remeron (Mirtazapine) 15 Mg Tablet 3 Tab PO QHS Lisinopril 2.5 Mg Tablet 1 Tab PO DAILY Atorvastatin Calcium 20 Mg Tablet 1 Tab PO DAILY Haloperidol 10 Mg Tablet 10 Mg PO DAILY Prozac (Fluoxetine Hcl) 40 Mg Capsule 1 Cap PO HS Metformin Hcl 500 Mg Tablet 500 Mg PO BIDWMEALS Vitals/I & O Vital Sign - Last 24 Hours 01/29/19 01/29/19 01/29/19 01/29/19 15:22 15:35 15:39 15:39 Temp 98.2 98.2 98.2 98.2 Pulse 95 88 Resp 16 22 B/P (MAP) 165/84 157/88 Pulse Ox 100 99 100 O2 Delivery Simple Mask Mask Simple Mask Room Air Simple Mask O2 Flow Rate 8 8 8.0 8.0 01/29/19 01/29/19 01/29/19 01/29/19 15:45 15:52 16:07 16:08 Temp 98.2 98.2 98.2 98.2 Pulse 88 88 Resp B/P (MAP) 144/90 148/87 Pulse Ox 99 89 94 94 O2 Delivery Simple Mask Room Air Nasal Cannula Nasal Cannula O2 Flow Rate 8.0 2 2.0 01/29/19 01/29/19 01/29/19 01/29/19 16:22 16:32 16:37 17:15 Temp 98.2 98.7 98.2 98.7 Pulse 83 86 83 Resp 24 B/P (MAP) 166/84 145/85 132/92 (105) Pulse Ox 95 95 95 87 O2 Delivery Nasal Cannula Nasal Cannula Nasal Cannula Room Air O2 Flow Rate 2.0 2.0 2.0 01/29/19 01/29/19 01/29/19 01/29/19 17:28 17:28 17:30 17:45 Pulse 98 102 B/P (MAP) 131/86 (101) 127/86 (100) Pulse Ox 95 95 94 94 O2 Delivery Nasal Cannula Nasal Cannula Room Air Room Air O2 Flow Rate 2.0 2.0 01/29/19 01/29/19 01/29/19 01/29/19 18:00 19:00 19:33 19:35 Temp 98.2 98.2 Pulse 101 104 Resp 20 B/P (MAP) 116/80 (92) 131/88 (102) Pulse Ox 97 O2 Delivery Room Air Room Air Nasal Cannula Room Air O2 Flow Rate 2.0 01/29/19 01/29/19 01/29/19 01/30/19 21:21 23:00 23:33 02:20 Temp 98.1 98.1 Pulse 100 Resp 20 18 20 B/P (MAP) 130/91 (104) Pulse Ox 98 O2 Delivery Nasal Cannula Room Air Room Air Room Air O2 Flow Rate 2.0 01/30/19 01/30/19 01/30/19 01/30/19 02:50 03:00 03:44 04:44 Temp 99.1 99.1 Pulse 96 Resp 20 18 20 B/P (MAP) 127/86 (100) Pulse Ox 94 O2 Delivery Nasal Cannula Room Air Nasal Cannula O2 Flow Rate 2.0 2.0 2.0 01/30/19 01/30/19 01/30/19 01/30/19 04:49 07:00 07:25 08:19 Temp 98.8 98.8 Pulse 97 Resp 20 18 B/P (MAP) 151/101 (118) Pulse Ox 96 O2 Delivery Room Air Nasal Cannula Room Air Room Air O2 Flow Rate 2.0 01/30/19 09:24 O2 Delivery Room Air Intake and Output 01/29/19 01/29/19 01/30/19 14:59 22:59 06:59 Intake Total 2100 ml Output Total 1600 ml 960 ml 220 ml Balance -1600 ml 1140 ml -220 ml BERNARDINO COX MD Jan 30, 2019 10:27
[2019-01-30 11:00] VITALS: BP 159/98
[2019-01-30] MEDS: KETOROLAC 30 MG/ML VIAL. IV PRN (11:00)
--- NOTE | 2019-01-30 11:44 | PDOC ---
Objective: Objective: Has regular diet ordered. Vital Signs: Vital Signs Date Time Temp Pulse Resp B/P (MAP) Pulse Ox O2 Delivery O2 Flow Rate FiO2 01/30/19 11:00 Nasal Cannula 2.0 01/30/19 07:00 98.8 97 18 151/101 (118) 96 98.8 Labs: Laboratory Tests Test 01/29/19 16:10 01/30/19 07:15 Glucose (Fingerstick) 173 mg/dL White Blood Count 13.1 x10^3/uL Red Blood Count 3.64 x10^6/uL Hemoglobin 11.6 g/dL Hematocrit 34.5 % Mean Corpuscular Volume 95 fL Mean Corpuscular Hemoglobin 32 pg Mean Corpuscular Hemoglobin Concent 34 g/dL Red Cell Distribution Width 14.8 % Platelet Count 208 x10^3/uL Neutrophils (%) (Auto) 58 % Lymphocytes (%) (Auto) 29 % Monocytes (%) (Auto) 12 % Eosinophils (%) (Auto) 0 % Basophils (%) (Auto) 1 % Neutrophils # (Auto) 7.6 x10^3uL Lymphocytes # (Auto) 3.8 x10^3/uL Monocytes # (Auto) 1.6 x10^3/uL Eosinophils # (Auto) 0.0 x10^3/uL Basophils # (Auto) 0.1 x10^3/uL Sodium Level 133 mmol/L Potassium Level 4.1 mmol/L Chloride Level 98 mmol/L Carbon Dioxide Level 26 mmol/L Anion Gap 9 Blood Urea Nitrogen 8 mg/dL Creatinine 1.1 mg/dL Estimated GFR (Cockcroft-Gault) 75.3 Glucose Level 190 mg/dL Calcium Level 8.9 mg/dL Total Bilirubin 5.3 mg/dL Direct Bilirubin 4.7 mg/dL Aspartate Amino Transf (AST/SGOT) 115 U/L Alanine Aminotransferase (ALT/SGPT) 200 U/L Alkaline Phosphatase 327 U/L Total Protein 7.2 g/dL Albumin 2.5 g/dL Amylase Level 24 U/L Lipase 58 U/L Imaging: [facility] 01/29 Impression: 1. There is some variable appearance of intraluminal filling defects in the common bile duct although confidently seen on last image submitted. PE: GEN: NAD - sitting on edge of bed, therapy present NEURO/PSYCH: A & O 3 A/P: S/p cholecystectomy and CBDE -- Bili improved, will return later w/ Dr. Valdes. DARREL MUELLER Jan 30, 2019 11:44
--- NOTE | 2019-01-30 13:47 | NUR ---
IP: patient has +MRSA screen, requires contact precautions until 2 negative results 7 days apart.
[2019-01-30 15:00] VITALS: BP 143/92
[2019-01-30 19:20] VITALS: BP 146/88
[2019-01-30 23:00] VITALS: BP 131/91
[2019-01-31] MEDS: fentaNYL PF VIAL 100 MCG/2 ML VIAL IV PRN ×8 (01:51→20:01)
[2019-01-31] MEDS: ONDANSETRON PF 4 MG/2 ML VIAL. IV PRN (03:58)
[2019-01-31 04:26] LABS: BASO # 0.1 x10^3/uL (0.0-0.2); BASO % 1 % (0-3); EOS # 0.3 x10^3/uL (0.0-0.7); EOS % 2 % (0-3); HEMATOCRIT 29.1 % (39.0-53.0); HEMOGLOBIN 9.7 g/dL (13.0-17.5); LYMPH # 4.4 x10^3/uL (1.0-4.8); LYMPH % 34 % (24-48); MEAN CORPUSCULAR HEMOGLOBIN 32 pg (25-35); MEAN CORPUSCULAR HGB CONC 33 g/dL (31-37); MEAN CORPUSCULAR VOLUME 95 fL (79-100); MONO # 1.6 x10^3/uL (0.0-1.1); MONO % 13 % (0-9); NEUT # 6.5 x10^3uL (1.8-7.7); NEUT % 50 % (31-73); PLATELET COUNT 200 x10^3/uL (140-400); RED BLOOD COUNT 3.07 x10^6/uL (4.30-5.70); RED CELL DISTRIBUTION WIDTH 14.7 % (11.5-14.5); WHITE BLOOD COUNT 12.8 x10^3/uL (4.0-11.0)
[2019-01-31] MEDS: HYDROcodone/APAP 10/325 1 TAB TABLET PO PRN ×3 (05:10→18:44)
[2019-01-31 05:19] LABS: CALCIUM 8.5 mg/dL (8.5-10.1); GFR 84.1
[2019-01-31 07:10] VITALS: BP 119/73
[2019-01-31] MEDS: IV RINGERS,LACTATED 1000ML 1,000 ML IV SCH ×2 (07:49→16:36)
[2019-01-31] MEDS: PANTOPRAZOLE 40 MG TABLET.DR. PO SCH (08:15)
[2019-01-31] MEDS: DOCUSATE SODIUM 100 MG CAPSULE. PO SCH ×2 (08:15→21:26)
--- NOTE | 2019-01-31 09:35 | PDOC ---
Subjective: Subjective: Sharp right chest pain with coughing - says worse. Also incisional discomfort. No issues eating. Objective: Vital Signs: Vital Signs Date Time Temp Pulse Resp B/P (MAP) Pulse Ox O2 Delivery O2 Flow Rate FiO2 01/31/19 08:16 Room Air 01/31/19 07:10 98.6 105 16 119/73 (88) 91 98.6 01/31/19 02:30 2.0 Labs: Laboratory Tests Test 01/30/19 10:59 01/30/19 16:54 01/30/19 21:26 01/31/19 03:00 Glucose (Fingerstick) 177 mg/dL 153 mg/dL 129 mg/dL White Blood Count 12.8 x10^3/uL Red Blood Count 3.07 x10^6/uL Hemoglobin 9.7 g/dL Hematocrit 29.1 % Mean Corpuscular Volume 95 fL Mean Corpuscular Hemoglobin 32 pg Mean Corpuscular Hemoglobin Concent 33 g/dL Red Cell Distribution Width 14.7 % Platelet Count 200 x10^3/uL Neutrophils (%) (Auto) 50 % Lymphocytes (%) (Auto) 34 % Monocytes (%) (Auto) 13 % Eosinophils (%) (Auto) 2 % Basophils (%) (Auto) 1 % Neutrophils # (Auto) 6.5 x10^3uL Lymphocytes # (Auto) 4.4 x10^3/uL Monocytes # (Auto) 1.6 x10^3/uL Eosinophils # (Auto) 0.3 x10^3/uL Basophils # (Auto) 0.1 x10^3/uL Sodium Level 134 mmol/L Potassium Level 4.0 mmol/L Chloride Level 99 mmol/L Carbon Dioxide Level 29 mmol/L Anion Gap 6 Blood Urea Nitrogen 10 mg/dL Creatinine 1.0 mg/dL Estimated GFR (Cockcroft-Gault) 84.1 Glucose Level 168 mg/dL Calcium Level 8.5 mg/dL PE: GEN: NAD LUNGS: room air HEART: tachycardic - left upper chest TTP ABD: dressing RUQ, soft NEURO/PSYCH: A & O 3 A/P: S/p cholecystectomy and CBDE - chest and abd pain Elevated LFTs Leukocytosis - better Anemia - Hgb drift since admission/post-op -- Rechecking LFTs. DARREL MUELLER Jan 31, 2019 09:35
[2019-01-31 09:47] LABS: ALBUMIN 2.2 g/dL (3.4-5.0); DIRECT BILIRUBIN 2.5 mg/dL (0.0-0.2); TOTAL BILIRUBIN 3.1 mg/dL (0.2-1.0); TOTAL PROTEIN 6.6 g/dL (6.4-8.2)
[2019-01-31 11:00] VITALS: BP 143/86
--- NOTE | 2019-01-31 11:25 | NUR ---
Pt. educated on the use of PO meds and the need to find what PO meds work best. pt. also instructed that IV pain meds is for breakthrough pain. Pt also verbalized understanding of the frequency of pain meds.
--- NOTE | 2019-01-31 11:55 | NUR ---
Pt. refusing to allow PO pain meds work, asking for IV Fentanyl.
--- NOTE | 2019-01-31 13:20 | PDOC ---
PROGRESS NOTES History of Present Illness History of Present Illness Assessment/Plan Jaundice with transaminitis and hyperbilirubinemia some variable appearance of intraluminal filling defects in the common bile duct although confidently seen on last image Round filling defect in the distal common bile duct is likely choledocholithiasis rather than mass,. There is biliary ductal dilatation. cholelithiasis. T2 hyperintense liver lesions are more likely due to hemangiomas or complex cysts with debris, persistent pain, mod severe, CONTINUES normocytic anemia Plan admitted general surgery and GI following abdominal ultrasound reviewed DVT prophylaxis full code home meds IV fluids when necessary Zofran when necessary prn narcotics prognosis guarded FOLLOW LFT'S 42 MIN PT EXAM, chart review, > 50% of time spent with exam, chart review, pt care coordination Vitals Vitals Vital Signs Date Time Temp Pulse Resp B/P (MAP) Pulse Ox O2 Delivery O2 Flow Rate FiO2 01/31/19 12:25 Room Air 01/31/19 11:00 98.8 104 18 143/86 (105) 92 98.8 01/31/19 02:30 2.0 Physical Exam General: Alert, Oriented X3, Cooperative, No acute distress, mild distress, moderate distress Heart: Regular rate, Normal S1, Normal S2, No murmurs Lungs: Clear Abdomen: Normal bowel sounds, Soft, Other (drain serosang) Extremities: No clubbing, No cyanosis Skin: Other (jaundice) Labs LABS Laboratory Tests Test 01/30/19 16:54 01/30/19 21:26 01/31/19 03:00 01/31/19 11:49 Glucose (Fingerstick) 153 mg/dL (70-99) 129 mg/dL (70-99) 153 mg/dL (70-99) White Blood Count 12.8 x10^3/uL (4.0-11.0) Red Blood Count 3.07 x10^6/uL (4.30-5.70) Hemoglobin 9.7 g/dL (13.0-17.5) Hematocrit 29.1 % (39.0-53.0) Mean Corpuscular Volume 95 fL (79-100) Mean Corpuscular Hemoglobin 32 pg (25-35) Mean Corpuscular Hemoglobin Concent 33 g/dL (31-37) Red Cell Distribution Width 14.7 % (11.5-14.5) Platelet Count 200 x10^3/uL (140-400) Neutrophils (%) (Auto) 50 % (31-73) Lymphocytes (%) (Auto) 34 % (24-48) Monocytes (%) (Auto) 13 % (0-9) Eosinophils (%) (Auto) 2 % (0-3) Basophils (%) (Auto) 1 % (0-3) Neutrophils # (Auto) 6.5 x10^3uL (1.8-7.7) Lymphocytes # (Auto) 4.4 x10^3/uL (1.0-4.8) Monocytes # (Auto) 1.6 x10^3/uL (0.0-1.1) Eosinophils # (Auto) 0.3 x10^3/uL (0.0-0.7) Basophils # (Auto) 0.1 x10^3/uL (0.0-0.2) Sodium Level 134 mmol/L (136-145) Potassium Level 4.0 mmol/L (3.5-5.1) Chloride Level 99 mmol/L (98-107) Carbon Dioxide Level 29 mmol/L (21-32) Anion Gap 6 (6-14) Blood Urea Nitrogen 10 mg/dL (8-26) Creatinine 1.0 mg/dL (0.7-1.3) Estimated GFR (Cockcroft-Gault) 84.1 Glucose Level 168 mg/dL (70-99) Calcium Level 8.5 mg/dL (8.5-10.1) Total Bilirubin 3.1 mg/dL (0.2-1.0) Direct Bilirubin 2.5 mg/dL (0.0-0.2) Aspartate Amino Transf (AST/SGOT) 60 U/L (15-37) Alanine Aminotransferase (ALT/SGPT) 136 U/L (16-63) Alkaline Phosphatase 257 U/L (46-116) Total Protein 6.6 g/dL (6.4-8.2) Albumin 2.2 g/dL (3.4-5.0) Assessment and Plan Assessmemt and Plan Problems Medical Problems: (1) Common bile duct dilatation Status: Acute (2) Jaundice Status: Acute (3) Morbid obesity Status: Acute Comment Review of Relevant I have reviewed the following items gustavo (where applicable) has been applied. Labs Laboratory Tests Test 01/29/19 16:10 01/30/19 07:15 01/30/19 10:59 01/30/19 16:54 Glucose (Fingerstick) 173 mg/dL (70-99) 177 mg/dL (70-99) 153 mg/dL (70-99) White Blood Count 13.1 x10^3/uL (4.0-11.0) Red Blood Count 3.64 x10^6/uL (4.30-5.70) Hemoglobin 11.6 g/dL (13.0-17.5) Hematocrit 34.5 % (39.0-53.0) Mean Corpuscular Volume 95 fL (79-100) Mean Corpuscular Hemoglobin 32 pg (25-35) Mean Corpuscular Hemoglobin Concent 34 g/dL (31-37) Red Cell Distribution Width 14.8 % (11.5-14.5) Platelet Count 208 x10^3/uL (140-400) Neutrophils (%) (Auto) 58 % (31-73) Lymphocytes (%) (Auto) 29 % (24-48) Monocytes (%) (Auto) 12 % (0-9) Eosinophils (%) (Auto) 0 % (0-3) Basophils (%) (Auto) 1 % (0-3) Neutrophils # (Auto) 7.6 x10^3uL (1.8-7.7) Lymphocytes # (Auto) 3.8 x10^3/uL (1.0-4.8) Monocytes # (Auto) 1.6 x10^3/uL (0.0-1.1) Eosinophils # (Auto) 0.0 x10^3/uL (0.0-0.7) Basophils # (Auto) 0.1 x10^3/uL (0.0-0.2) Sodium Level 133 mmol/L (136-145) Potassium Level 4.1 mmol/L (3.5-5.1) Chloride Level 98 mmol/L (98-107) Carbon Dioxide Level 26 mmol/L (21-32) Anion Gap 9 (6-14) Blood Urea Nitrogen 8 mg/dL (8-26) Creatinine 1.1 mg/dL (0.7-1.3) Estimated GFR (Cockcroft-Gault) 75.3 Glucose Level 190 mg/dL (70-99) Calcium Level 8.9 mg/dL (8.5-10.1) Total Bilirubin 5.3 mg/dL (0.2-1.0) Direct Bilirubin 4.7 mg/dL (0.0-0.2) Aspartate Amino Transf (AST/SGOT) 115 U/L (15-37) Alanine Aminotransferase (ALT/SGPT) 200 U/L (16-63) Alkaline Phosphatase 327 U/L (46-116) Total Protein 7.2 g/dL (6.4-8.2) Albumin 2.5 g/dL (3.4-5.0) Amylase Level 24 U/L (25-115) Lipase 58 U/L (73-393) Test 01/30/19 21:26 01/31/19 03:00 01/31/19 11:49 Glucose (Fingerstick) 129 mg/dL (70-99) 153 mg/dL (70-99) White Blood Count 12.8 x10^3/uL (4.0-11.0) Red Blood Count 3.07 x10^6/uL (4.30-5.70) Hemoglobin 9.7 g/dL (13.0-17.5) Hematocrit 29.1 % (39.0-53.0) Mean Corpuscular Volume 95 fL (79-100) Mean Corpuscular Hemoglobin 32 pg (25-35) Mean Corpuscular Hemoglobin Concent 33 g/dL (31-37) Red Cell Distribution Width 14.7 % (11.5-14.5) Platelet Count 200 x10^3/uL (140-400) Neutrophils (%) (Auto) 50 % (31-73) Lymphocytes (%) (Auto) 34 % (24-48) Monocytes (%) (Auto) 13 % (0-9) Eosinophils (%) (Auto) 2 % (0-3) Basophils (%) (Auto) 1 % (0-3) Neutrophils # (Auto) 6.5 x10^3uL (1.8-7.7) Lymphocytes # (Auto) 4.4 x10^3/uL (1.0-4.8) Monocytes # (Auto) 1.6 x10^3/uL (0.0-1.1) Eosinophils # (Auto) 0.3 x10^3/uL (0.0-0.7) Basophils # (Auto) 0.1 x10^3/uL (0.0-0.2) Sodium Level 134 mmol/L (136-145) Potassium Level 4.0 mmol/L (3.5-5.1) Chloride Level 99 mmol/L (98-107) Carbon Dioxide Level 29 mmol/L (21-32) Anion Gap 6 (6-14) Blood Urea Nitrogen 10 mg/dL (8-26) Creatinine 1.0 mg/dL (0.7-1.3) Estimated GFR (Cockcroft-Gault) 84.1 Glucose Level 168 mg/dL (70-99) Calcium Level 8.5 mg/dL (8.5-10.1) Total Bilirubin 3.1 mg/dL (0.2-1.0) Direct Bilirubin 2.5 mg/dL (0.0-0.2) Aspartate Amino Transf (AST/SGOT) 60 U/L (15-37) Alanine Aminotransferase (ALT/SGPT) 136 U/L (16-63) Alkaline Phosphatase 257 U/L (46-116) Total Protein 6.6 g/dL (6.4-8.2) Albumin 2.2 g/dL (3.4-5.0) Laboratory Tests Test 01/30/19 16:54 01/30/19 21:26 01/31/19 03:00 01/31/19 11:49 Glucose (Fingerstick) 153 mg/dL (70-99) 129 mg/dL (70-99) 153 mg/dL (70-99) White Blood Count 12.8 x10^3/uL (4.0-11.0) Red Blood Count 3.07 x10^6/uL (4.30-5.70) Hemoglobin 9.7 g/dL (13.0-17.5) Hematocrit 29.1 % (39.0-53.0) Mean Corpuscular Volume 95 fL (79-100) Mean Corpuscular Hemoglobin 32 pg (25-35) Mean Corpuscular Hemoglobin Concent 33 g/dL (31-37) Red Cell Distribution Width 14.7 % (11.5-14.5) Platelet Count 200 x10^3/uL (140-400) Neutrophils (%) (Auto) 50 % (31-73) Lymphocytes (%) (Auto) 34 % (24-48) Monocytes (%) (Auto) 13 % (0-9) Eosinophils (%) (Auto) 2 % (0-3) Basophils (%) (Auto) 1 % (0-3) Neutrophils # (Auto) 6.5 x10^3uL (1.8-7.7) Lymphocytes # (Auto) 4.4 x10^3/uL (1.0-4.8) Monocytes # (Auto) 1.6 x10^3/uL (0.0-1.1) Eosinophils # (Auto) 0.3 x10^3/uL (0.0-0.7) Basophils # (Auto) 0.1 x10^3/uL (0.0-0.2) Sodium Level 134 mmol/L (136-145) Potassium Level 4.0 mmol/L (3.5-5.1) Chloride Level 99 mmol/L (98-107) Carbon Dioxide Level 29 mmol/L (21-32) Anion Gap 6 (6-14) Blood Urea Nitrogen 10 mg/dL (8-26) Creatinine 1.0 mg/dL (0.7-1.3) Estimated GFR (Cockcroft-Gault) 84.1 Glucose Level 168 mg/dL (70-99) Calcium Level 8.5 mg/dL (8.5-10.1) Total Bilirubin 3.1 mg/dL (0.2-1.0) Direct Bilirubin 2.5 mg/dL (0.0-0.2) Aspartate Amino Transf (AST/SGOT) 60 U/L (15-37) Alanine Aminotransferase (ALT/SGPT) 136 U/L (16-63) Alkaline Phosphatase 257 U/L (46-116) Total Protein 6.6 g/dL (6.4-8.2) Albumin 2.2 g/dL (3.4-5.0) Medications Current Medications Iohexol (Omnipaque 240 Mg/ml) 30 ml 1X ONCE PO Last administered on 01/27/19at 19:15; Start 01/27/19 at 19:15; Stop 01/27/19 at 19:16; Status DC Iohexol (Omnipaque 300 Mg/ml) 75 ml 1X ONCE IV Last administered on 01/27/19at 20:10; Start 01/27/19 at 19:15; Stop 01/27/19 at 19:16; Status DC Info (CONTRAST GIVEN -- Rx MONITORING) 1 each PRN DAILY PRN MC SEE COMMENTS; Start 01/27/19 at 19:30; Stop 01/29/19 at 19:29; Status DC Ketorolac Tromethamine (Toradol 30mg Vial) 30 mg 1X ONCE IV Last administered on 01/27/19at 22:02; Start 01/27/19 at 21:30; Stop 01/27/19 at 21:31; Status DC Sodium Chloride 1,000 ml @ 1,000 mls/hr 1X ONCE IV Last administered on 01/27/19at 21:58; Start 01/27/19 at 21:30; Stop 01/27/19 at 22:29; Status DC Sodium Chloride 1,000 ml @ 150 mls/hr Q6H40M IV Last administered on 01/28/19at 12:34; Start 01/27/19 at 22:00; Stop 01/28/19 at 21:59; Status DC Morphine Sulfate (Morphine Sulfate) 2 mg PRN Q2HR PRN IV PAIN; Start 01/28/19 at 08:15; Stop 01/28/19 at 08:23; Status DC Ketorolac Tromethamine (Toradol 30mg Vial) 20 mg PRN Q6HRS PRN IV MILD PAIN Last administered on 01/30/19at 11:00; Start 01/28/19 at 08:15; Stop 02/02/19 at 08:14 Fentanyl Citrate (Fentanyl 2ml Vial) 50 mcg PRN Q2HR PRN IV MODERATE PAIN, SEVERE PAIN Last administered on 01/29/19at 17:28; Start 01/28/19 at 08:30; Stop 01/29/19 at 18:44; Status DC Cefazolin Sodium/ Dextrose 50 ml @ 100 mls/hr 1X PREOP IV ; Start 01/28/19 at 15:45; Stop 01/29/19 at 10:14; Status DC Fentanyl Citrate (Fentanyl 2ml Vial) 25 mcg PRN Q5MIN PRN IV MILD PAIN; Start 01/29/19 at 07:00; Stop 01/29/19 at 19:00; Status DC Fentanyl Citrate (Fentanyl 2ml Vial) 50 mcg PRN Q5MIN PRN IV MODERATE TO SEVERE PAIN Last administered on 01/29/19 16:32; Start 01/29/19 at 07:00; Stop 01/29/19 at 19:00; Status DC Ringer's Solution 1,000 ml @ 30 mls/hr Q24H IV Last administered on 01/29/19 09:49; Start 01/29/19 at 07:00; Stop 01/29/19 at 18:59; Status DC Prochlorperazine Edisylate (Compazine) 5 mg PACU PRN PRN IV NAUSEA, MRX1; S tart 01/29/19 at 07:00; Stop 01/29/19 at 19:00; Status DC Dextrose (Dextrose 50%-Water Syringe) 12.5 gm PRN Q15MIN PRN IV SEE COMMENTS; Start 01/28/19 at 19:45; Stop 01/30/19 at 13:49; Status DC Bupivacaine HCl/ Epinephrine Bitart (Sensorcain-Mpf Epi 0.5%-[id number]) 30 ml STK-MED ONCE .ROUTE Last administered on 01/29/19 12:35; Start 01/29/19 at 07:14; Stop 01/29/19 at 08:15; Status DC Cellulose (Surgicel Hemostat 2x3) 1 each STK-MED ONCE .ROUTE Last administered on 01/29/19 12:35; Start 01/29/19 at 07:14; Stop 01/29/19 at 08:15; Status DC Heparin Sodium (Porcine) (Heparin Sodium) 10,000 unit STK-MED ONCE .ROUTE Last administered on 01/29/19 12:35; Start 01/29/19 at 07:14; Stop 01/29/19 at 08:15; Status DC Iohexol (Omnipaque 300 Mg/ml) 50 ml STK-MED ONCE .ROUTE Last administered on 01/29/19 12:35; Start 01/29/19 at 07:14; Stop 01/29/19 at 08:16; Status DC Bisacodyl (Dulcolax Supp) 10 mg STK-MED ONCE .ROUTE Last administered on 01/29/19 12:35; Start 01/29/19 at 07:15; Stop 01/29/19 at 08:16; Status DC Cefazolin Sodium/ Dextrose 50 ml @ 100 mls/hr 1X PREOP IV ; Start 01/29/19 at 10:15; Stop 01/29/19 at 18:56; Status DC Ondansetron HCl (Zofran) 4 mg STK-MED ONCE .ROUTE ; Start 01/29/19 at 11:34; Stop 01/29/19 at 11:35; Status DC Propofol 20 ml @ As Directed STK-MED ONCE IV ; Start 01/29/19 at 11:34; Stop 01/29/19 at 11:35; Status DC Lidocaine HCl (Lidocaine Pf 2% Vial) 5 ml STK-MED ONCE .ROUTE ; Start 01/29/19 at 11:34; Stop 01/29/19 at 11:35; Status DC Fentanyl Citrate (Fentanyl 2ml Vial) 100 mcg STK-MED ONCE .ROUTE ; Start 01/29/19 at 11:34; Stop 01/29/19 at 11:35; Status DC Dexamethasone Sodium Phosphate (Decadron) 4 mg STK-MED ONCE .ROUTE ; Start 01/29/19 at 11:35; Stop 01/29/19 at 11:36; Status DC Rocuronium [place] (Zemuron) 50 mg STK-MED ONCE .ROUTE ; Start 01/29/19 at 11:35; Stop 01/29/19 at 11:36; Status DC Succinylcholine Chloride (Anectine) 200 mg STK-MED ONCE .ROUTE ; Start 01/29/19 at 11:54; Stop 01/29/19 at 11:55; Status DC Cefazolin Sodium 100 ml @ As Directed STK-MED ONCE IV ; Start 01/29/19 at 12:06; Stop 01/29/19 at 12:07; Status DC Cefazolin Sodium 50 ml @ As Directed STK-MED ONCE IV ; Start 01/29/19 at 12:07; Stop 01/29/19 at 12:08; Status DC Cefazolin Sodium 3 gm/Dextrose 100 ml @ 200 mls/hr 1X ONCE IV Last adminis tered on 01/29/19at 12:09; Start 01/29/19 at 13:00; Stop 01/29/19 at 13:29; Status DC Glycopyrrolate (Robinul) 1 mg STK-MED ONCE .ROUTE ; Start 01/29/19 at 12:57; Stop 01/29/19 at 12:58; Status DC Neostigmine Methylsulfate (Neostigmine Methylsulfate) 5 mg STK-MED ONCE .ROUTE ; Start 01/29/19 at 12:58; Stop 01/29/19 at 12:59; Status DC Rocuronium [place] (Zemuron) 50 mg STK-MED ONCE .ROUTE ; Start 01/29/19 at 13:07; Stop 01/29/19 at 13:08; Status DC Fentanyl Citrate (Fentanyl 2ml Vial) 100 mcg STK-MED ONCE .ROUTE ; Start 01/29/19 at 13:10; Stop 01/29/19 at 13:11; Status DC Iohexol (Omnipaque 300 Mg/ml) 50 ml STK-MED ONCE .ROUTE Last administered on 01/29/19at 12:35; Start 01/29/19 at 12:36; Stop 01/29/19 at 13:37; Status DC Cellulose (Surgicel Hemostat 4x8) 1 each STK-MED ONCE .ROUTE Last administered on 01/29/19at 12:35; Start 01/29/19 at 13:42; Stop 01/29/19 at 14:42; Status DC Cellulose (Surgicel Hemostat 4x8) 1 each STK-MED ONCE .ROUTE Last administered on 01/29/19at 12:35; Start 01/29/19 at 13:46; Stop 01/29/19 at 14:46; Status DC Ketorolac Tromethamine (Toradol For Or Only) 30 mg STK-MED ONCE INJ ; Start 01/29/19 at 14:59; Stop 01/29/19 at 15:00; Status DC Glycopyrrolate (Robinul) 1 mg STK-MED ONCE .ROUTE ; Start 01/29/19 at 15:13; Stop 01/29/19 at 15:14; Status DC Neostigmine Methylsulfate (Neostigmine Methylsulfate) 5 mg STK-MED ONCE .ROUTE ; Start 01/29/19 at 15:13; Stop 01/29/19 at 15:14; Status DC Sevoflurane (Ultane) 90 ml STK-MED ONCE IH ; Start 01/29/19 at 15:20; Stop 01/29/19 at 15:21; Status DC Fentanyl Citrate (Fentanyl 2ml Vial) 100 mcg STK-MED ONCE .ROUTE ; Start 01/29/19 at 15:32; Stop 01/29/19 at 15:33; Status DC Fentanyl Citrate (Fentanyl 2ml Vial) 100 mcg STK-MED ONCE .ROUTE ; Start 01/29/19 at 15:48; Stop 01/29/19 at 15:49; Status DC Sodium Chloride (Normal Saline Flush) 3 ml QSHIFT PRN IV AFTER MEDS AND BLOOD DRAWS; Start 01/29/19 at 16:00 Ringer's Solution 1,000 ml @ 100 mls/hr Q10H IV Last administered on 01/31/19at 07:49; Start 01/29/19 at 15:46 Dextrose (Dextrose 50%-Water Syringe) 12.5 gm PRN Q15MIN PRN IV SEE COMMENTS; Start 01/29/19 at 16:00 Acetaminophen/ Hydrocodone Bitart (Lortab 5/325) 1 tab PRN Q4HRS PRN PO MILD PAIN Last administered on 01/29/19at 17:28; Start 01/29/19 at 16:00; Stop 01/29/19 at 18:45; Status DC Docusate Sodium (Colace) 100 mg BID PO Last administered on 01/31/19at 08:15; Start 01/29/19 at 21:00 Ondansetron HCl (Zofran) 4 mg PRN Q6HRS PRN IV NAUESA, 1ST CHOICE Last administered on 01/31/19at 03:58; Start 01/29/19 at 16:00 Famotidine (Pepcid Vial) 20 mg 1X ONCE IVP Last administered on 01/29/19at 16:14; Start 01/29/19 at 16:15; Stop 01/29/19 at 16:16; Status DC Pantoprazole Sodium (Protonix) 40 mg DAILYAC PO Last administered on 01/31/19at 08:15; Start 01/30/19 at 07:30 Fentanyl Citrate (Fentanyl 2ml Vial) 75 mcg PRN Q2HR PRN IV SEVERE PAIN Last administered on 01/31/19at 12:17; Start 01/29/19 at 18:45 Acetaminophen/ Hydrocodone Bitart (Lortab 10/325) 1 tab PRN Q6HRS PRN PO MODERATE PAIN Last administered on 01/31/19at 11:20; Start 01/29/19 at 18:45 Cefazolin Sodium/ Dextrose (Ancef 2gm Premix) 2 gm STK-MED ONCE IV ; Start 01/28/19 at 11:00; Stop 01/30/19 at 07:38; Status DC Active Scripts Active Reported Buspirone Hcl 30 Mg Tablet 1 Tab PO BID Protonix (Pantoprazole Sodium) 20 Mg Tablet.dr 2 Tab PO DAILY Zantac (Ranitidine Hcl) 150 Mg Tablet 1 Tab PO HS Tums (Calcium Carbonate) 200 Mg Tab.chew 200 Mg PO TID Zyprexa (Olanzapine) 15 Mg Tablet 1 Tab PO QHS Remeron (Mirtazapine) 15 Mg Tablet 3 Tab PO QHS Lisinopril 2.5 Mg Tablet 1 Tab PO DAILY Atorvastatin Calcium 20 Mg Tablet 1 Tab PO DAILY Haloperidol 10 Mg Tablet 10 Mg PO DAILY Prozac (Fluoxetine Hcl) 40 Mg Capsule 1 Cap PO HS Metformin Hcl 500 Mg Tablet 500 Mg PO BIDWMEALS Vitals/I & O Vital Sign - Last 24 Hours 01/30/19 01/30/19 01/30/19 01/30/19 14:17 15:00 16:55 17:00 Temp 98.6 98.6 Pulse 93 Resp 16 B/P (MAP) 143/92 (109) Pulse Ox 96 O2 Delivery Room Air Nasal Cannula Room Air Room Air O2 Flow Rate 2.0 01/30/19 01/30/19 01/30/19 01/30/19 19:20 19:27 20:00 21:42 Temp 99.0 99.0 Pulse 88 Resp 20 20 B/P (MAP) 146/88 (107) Pulse Ox 95 96 O2 Delivery Room Air Room Air Room Air Room Air 01/30/19 01/30/19 01/30/19 01/31/19 23:00 23:08 23:47 00:08 Temp 99.0 99.0 Pulse 99 Resp 20 B/P (MAP) 131/91 (104) Pulse Ox 96 96 96 O2 Delivery Room Air Room Air Room Air O2 Flow Rate 2.0 2.0 01/31/19 01/31/19 01/31/19 01/31/19 01:51 02:30 03:00 03:54 Resp 18 Pulse Ox 96 O2 Delivery Room Air Room Air O2 Flow Rate 2.0 01/31/19 01/31/19 01/31/19 01/31/19 05:10 06:11 07:10 07:30 Temp 98.6 98.6 Pulse 105 Resp 16 B/P (MAP) 119/73 (88) Pulse Ox 91 O2 Delivery Room Air Room Air Room Air Room Air 01/31/19 01/31/19 01/31/19 01/31/19 08:16 10:21 11:00 11:20 Temp 98.8 98.8 Pulse 104 Resp 18 B/P (MAP) 143/86 (105) Pulse Ox 92 O2 Delivery Room Air Room Air Room Air Room Air 01/31/19 01/31/19 12:17 12:25 O2 Delivery Room Air Room Air Intake and Output 01/30/19 01/30/19 01/31/19 15:00 23:00 07:00 Output Total 545 ml 760 ml 10 ml Balance -545 ml -760 ml -10 ml BERNARDINO COX MD Jan 31, 2019 13:20
--- NOTE | 2019-01-31 14:39 | PDOC ---
SURGICAL PROGRESS NOTE Subjective Pt with c/o incisional pain, garth PO Vital Signs Vital Signs Date Time Temp Pulse Resp B/P (MAP) Pulse Ox O2 Delivery O2 Flow Rate FiO2 01/31/19 14:29 Room Air 01/31/19 11:00 98.8 104 18 143/86 (105) 92 98.8 01/31/19 02:30 2.0 I&O Intake and Output 01/31/19 07:00 Output Total 1315 ml Balance -1315 ml Output Urine Total 1100 ml Drainage Total 215 ml General: Alert, Oriented X3, Cooperative, mild distress Abdomen: Soft, Other (TTP diffusely, VIKY serosang) Labs Laboratory Tests Test 01/29/19 16:10 01/30/19 07:15 01/30/19 10:59 01/30/19 16:54 Glucose (Fingerstick) 173 mg/dL (70-99) 177 mg/dL (70-99) 153 mg/dL (70-99) White Blood Count 13.1 x10^3/uL (4.0-11.0) Red Blood Count 3.64 x10^6/uL (4.30-5.70) Hemoglobin 11.6 g/dL (13.0-17.5) Hematocrit 34.5 % (39.0-53.0) Mean Corpuscular Volume 95 fL (79-100) Mean Corpuscular Hemoglobin 32 pg (25-35) Mean Corpuscular Hemoglobin Concent 34 g/dL (31-37) Red Cell Distribution Width 14.8 % (11.5-14.5) Platelet Count 208 x10^3/uL (140-400) Neutrophils (%) (Auto) 58 % (31-73) Lymphocytes (%) (Auto) 29 % (24-48) Monocytes (%) (Auto) 12 % (0-9) Eosinophils (%) (Auto) 0 % (0-3) Basophils (%) (Auto) 1 % (0-3) Neutrophils # (Auto) 7.6 x10^3uL (1.8-7.7) Lymphocytes # (Auto) 3.8 x10^3/uL (1.0-4.8) Monocytes # (Auto) 1.6 x10^3/uL (0.0-1.1) Eosinophils # (Auto) 0.0 x10^3/uL (0.0-0.7) Basophils # (Auto) 0.1 x10^3/uL (0.0-0.2) Sodium Level 133 mmol/L (136-145) Potassium Level 4.1 mmol/L (3.5-5.1) Chloride Level 98 mmol/L (98-107) Carbon Dioxide Level 26 mmol/L (21-32) Anion Gap 9 (6-14) Blood Urea Nitrogen 8 mg/dL (8-26) Creatinine 1.1 mg/dL (0.7-1.3) Estimated GFR (Cockcroft-Gault) 75.3 Glucose Level 190 mg/dL (70-99) Calcium Level 8.9 mg/dL (8.5-10.1) Total Bilirubin 5.3 mg/dL (0.2-1.0) Direct Bilirubin 4.7 mg/dL (0.0-0.2) Aspartate Amino Transf (AST/SGOT) 115 U/L (15-37) Alanine Aminotransferase (ALT/SGPT) 200 U/L (16-63) Alkaline Phosphatase 327 U/L (46-116) Total Protein 7.2 g/dL (6.4-8.2) Albumin 2.5 g/dL (3.4-5.0) Amylase Level 24 U/L (25-115) Lipase 58 U/L (73-393) Test 01/30/19 21:26 01/31/19 03:00 01/31/19 11:49 Glucose (Fingerstick) 129 mg/dL (70-99) 153 mg/dL (70-99) White Blood Count 12.8 x10^3/uL (4.0-11.0) Red Blood Count 3.07 x10^6/uL (4.30-5.70) Hemoglobin 9.7 g/dL (13.0-17.5) Hematocrit 29.1 % (39.0-53.0) Mean Corpuscular Volume 95 fL (79-100) Mean Corpuscular Hemoglobin 32 pg (25-35) Mean Corpuscular Hemoglobin Concent 33 g/dL (31-37) Red Cell Distribution Width 14.7 % (11.5-14.5) Platelet Count 200 x10^3/uL (140-400) Neutrophils (%) (Auto) 50 % (31-73) Lymphocytes (%) (Auto) 34 % (24-48) Monocytes (%) (Auto) 13 % (0-9) Eosinophils (%) (Auto) 2 % (0-3) Basophils (%) (Auto) 1 % (0-3) Neutrophils # (Auto) 6.5 x10^3uL (1.8-7.7) Lymphocytes # (Auto) 4.4 x10^3/uL (1.0-4.8) Monocytes # (Auto) 1.6 x10^3/uL (0.0-1.1) Eosinophils # (Auto) 0.3 x10^3/uL (0.0-0.7) Basophils # (Auto) 0.1 x10^3/uL (0.0-0.2) Sodium Level 134 mmol/L (136-145) Potassium Level 4.0 mmol/L (3.5-5.1) Chloride Level 99 mmol/L (98-107) Carbon Dioxide Level 29 mmol/L (21-32) Anion Gap 6 (6-14) Blood Urea Nitrogen 10 mg/dL (8-26) Creatinine 1.0 mg/dL (0.7-1.3) Estimated GFR (Cockcroft-Gault) 84.1 Glucose Level 168 mg/dL (70-99) Calcium Level 8.5 mg/dL (8.5-10.1) Total Bilirubin 3.1 mg/dL (0.2-1.0) Direct Bilirubin 2.5 mg/dL (0.0-0.2) Aspartate Amino Transf (AST/SGOT) 60 U/L (15-37) Alanine Aminotransferase (ALT/SGPT) 136 U/L (16-63) Alkaline Phosphatase 257 U/L (46-116) Total Protein 6.6 g/dL (6.4-8.2) Albumin 2.2 g/dL (3.4-5.0) Laboratory Tests Test 01/30/19 16:54 01/30/19 21:26 01/31/19 03:00 01/31/19 11:49 Glucose (Fingerstick) 153 mg/dL (70-99) 129 mg/dL (70-99) 153 mg/dL (70-99) White Blood Count 12.8 x10^3/uL (4.0-11.0) Red Blood Count 3.07 x10^6/uL (4.30-5.70) Hemoglobin 9.7 g/dL (13.0-17.5) Hematocrit 29.1 % (39.0-53.0) Mean Corpuscular Volume 95 fL (79-100) Mean Corpuscular Hemoglobin 32 pg (25-35) Mean Corpuscular Hemoglobin Concent 33 g/dL (31-37) Red Cell Distribution Width 14.7 % (11.5-14.5) Platelet Count 200 x10^3/uL (140-400) Neutrophils (%) (Auto) 50 % (31-73) Lymphocytes (%) (Auto) 34 % (24-48) Monocytes (%) (Auto) 13 % (0-9) Eosinophils (%) (Auto) 2 % (0-3) Basophils (%) (Auto) 1 % (0-3) Neutrophils # (Auto) 6.5 x10^3uL (1.8-7.7) Lymphocytes # (Auto) 4.4 x10^3/uL (1.0-4.8) Monocytes # (Auto) 1.6 x10^3/uL (0.0-1.1) Eosinophils # (Auto) 0.3 x10^3/uL (0.0-0.7) Basophils # (Auto) 0.1 x10^3/uL (0.0-0.2) Sodium Level 134 mmol/L (136-145) Potassium Level 4.0 mmol/L (3.5-5.1) Chloride Level 99 mmol/L (98-107) Carbon Dioxide Level 29 mmol/L (21-32) Anion Gap 6 (6-14) Blood Urea Nitrogen 10 mg/dL (8-26) Creatinine 1.0 mg/dL (0.7-1.3) Estimated GFR (Cockcroft-Gault) 84.1 Glucose Level 168 mg/dL (70-99) Calcium Level 8.5 mg/dL (8.5-10.1) Total Bilirubin 3.1 mg/dL (0.2-1.0) Direct Bilirubin 2.5 mg/dL (0.0-0.2) Aspartate Amino Transf (AST/SGOT) 60 U/L (15-37) Alanine Aminotransferase (ALT/SGPT) 136 U/L (16-63) Alkaline Phosphatase 257 U/L (46-116) Total Protein 6.6 g/dL (6.4-8.2) Albumin 2.2 g/dL (3.4-5.0) Problem List Problems Medical Problems: (1) Common bile duct dilatation Status: Acute (2) Jaundice Status: Acute (3) Morbid obesity Status: Acute Assessment/Plan s/p lap bonita, CBDE cont pain control and supportive care monitor LFTs JANA VITAL MD Jan 31, 2019 14:39
[2019-01-31 15:00] VITALS: BP 125/74
[2019-01-31 19:15] VITALS: BP 133/78
[2019-01-31] MEDS: oxyCODONE/APAP 10/325 1 TAB TABLET PO PRN (21:35)
[2019-01-31 23:18] VITALS: BP 126/78
[2019-02-01] MEDS: fentaNYL PF VIAL 100 MCG/2 ML VIAL IV PRN ×6 (00:09→21:21)
[2019-02-01] MEDS: oxyCODONE/APAP 10/325 1 TAB TABLET PO PRN ×6 (01:39→23:12)
[2019-02-01 03:19] VITALS: BP 121/73
[2019-02-01 07:00] VITALS: BP 126/75
[2019-02-01] MEDS: PANTOPRAZOLE 40 MG TABLET.DR. PO SCH (07:02)
--- NOTE | 2019-02-01 08:11 | PATHOLOGY ---
[facility] Accession Number: [id number] . 01 Material submitted: . gallbladder - GALLBLADDER . 01 Clinical history: . Jaundice, CBD obstruction . 02 Diagnosis: Gallbladder, laparoscopic cholecystectomy: - Cholelithiasis. - Acute hemorrhagic and chronic cholecystitis. - Portion of benign gallbladder neck lymph node identified. . (JPM:mml; 01/31/2019) QL/01/31/2019 . 02 Comment: There is no evidence of malignancy. . (JPM:mml; 01/31/2019) . 02 Electronically signed: . Lopez Nguyen MD, Pathologist NPI- [id number] . 01 Gross description: . The specimen is received in formalin labeled "Dago Kali, gallbladder"" and consists of an intact but focally disrupted house-brown, irregular, and hemorrhagic gallbladder measuring 9.7 in length and up to 3.5 in diameter. The neck is curved forming a [id number] adhesion to the fundus. The margin is inked black. Opening reveals a lumen filled with hemorrhagic material and brown bile with multiple fragmented to multifaceted cox-yellow calculi ranging from 0.1-1.3 cm. The mucosa is cox-brown, ragged, irregular, and roughened with an average wall thickness of 0.3 cm. No masses are identified. [employer]ic sections are submitted in A1-A3 with the [id number] adhesion in A1 (SDY; 01/30/2019) SYU/SYU . 02 Pathologist provided ICD-10: K80.12 . 02 CPT . 175879 Specimen Comment: A courtesy copy of this report has been sent to Specimen Comment: [phone], , . Specimen Comment: Report sent to ,DR DAMON / DR CASAREZ Performed at: 01 [facility] [id number] [facility] [address], [place] [id number] MD Boris Daniel MD Phone: [phone] Performed at: 02 [facility] [address] [place], [place] [id number] MD Lopez Nguyen MD Phone: [phone]
[2019-02-01] MEDS: DOCUSATE SODIUM 100 MG CAPSULE. PO SCH ×2 (09:00→20:41)
--- NOTE | 2019-02-01 09:17 | PDOC ---
Subjective: Subjective: Pain is the same - says IV and PO pain meds help. Tolerating PO, passing gas but not stool, says drain output looks darker. Objective: Vital Signs: Vital Signs Date Time Temp Pulse Resp B/P (MAP) Pulse Ox O2 Delivery O2 Flow Rate FiO2 02/01/19 09:04 Room Air 02/01/19 07:02 18 98 02/01/19 07:00 98.6 98 126/75 (92) 98.6 Labs: Laboratory Tests Test 01/31/19 11:49 01/31/19 16:54 Glucose (Fingerstick) 153 mg/dL 111 mg/dL PE: GEN: holding fan close to face - looks a bit pale today LUNGS: room air HEART: RRR ABD: VIKY output dark red NEURO/PSYCH: A & O 3 A/P: S/p cholecystectomy and CBDE Elevated LFTs, leukocytosis, anemia -- Ongoing pain. Await pending labs. DARREL MUELLER February 01, 2019 09:17
[2019-02-01] MEDS: KETOROLAC 30 MG/ML VIAL. IV PRN ×2 (10:21→16:29)
[2019-02-01 11:00] VITALS: BP 149/86
[2019-02-01 11:35] LABS: BASO # 0.2 x10^3/uL (0.0-0.2); BASO % 1 % (0-3); EOS # 0.6 x10^3/uL (0.0-0.7); EOS % 3 % (0-3); HEMATOCRIT 28.8 % (39.0-53.0); HEMOGLOBIN 9.5 g/dL (13.0-17.5); LYMPH # 5.9 x10^3/uL (1.0-4.8); LYMPH % 32 % (24-48); MEAN CORPUSCULAR HEMOGLOBIN 32 pg (25-35); MEAN CORPUSCULAR HGB CONC 33 g/dL (31-37); MEAN CORPUSCULAR VOLUME 96 fL (79-100); MONO # 1.6 x10^3/uL (0.0-1.1); MONO % 9 % (0-9); NEUT # 10.1 x10^3uL (1.8-7.7); NEUT % 55 % (31-73); PLATELET COUNT 291 x10^3/uL (140-400); RED BLOOD COUNT 3.01 x10^6/uL (4.30-5.70); RED CELL DISTRIBUTION WIDTH 15.2 % (11.5-14.5); WHITE BLOOD COUNT 18.2 x10^3/uL (4.0-11.0)
[2019-02-01 12:03] LABS: ALBUMIN 2.2 g/dL (3.4-5.0); ALBUMIN/GLOBULIN RATIO 0.4 (1.0-1.7); CALCIUM 8.7 mg/dL (8.5-10.1); GFR 84.1; POTASSIUM 3.6 mmol/L (3.5-5.1); TOTAL BILIRUBIN 2.4 mg/dL (0.2-1.0); TOTAL PROTEIN 7.2 g/dL (6.4-8.2)
--- NOTE | 2019-02-01 12:22 | PDOC ---
PROGRESS NOTES History of Present Illness History of Present Illness Assessment/Plan Jaundice with transaminitis and hyperbilirubinemia some variable appearance of intraluminal filling defects in the common bile duct although confidently seen on last image Round filling defect in the distal common bile duct is likely choledocholithiasis rather than mass,. There is biliary ductal dilatation. cholelithiasis. T2 hyperintense liver lesions are more likely due to hemangiomas or complex cysts with debris, persistent pain, mod severe, CONTINUES normocytic anemia Plan admitted general surgery and GI following d/w dr aj in [place], ok for d/c today abdominal ultrasound reviewed DVT prophylaxis full code home meds IV fluids when necessary Zofran when necessary prn narcotics prognosis guarded FOLLOW LFT'S, CBC, Surgery plans to check cbc in am, cancel d/c plans today 32 MIN PT EXAM, chart review, > 50% of time spent with exam, chart review, pt care coordination Vitals Vitals Vital Signs Date Time Temp Pulse Resp B/P (MAP) Pulse Ox O2 Delivery O2 Flow Rate FiO2 02/01/19 12:13 Room Air 02/01/19 11:00 98.6 94 18 149/86 (107) 93 98.6 Physical Exam General: Alert, Oriented X3, Cooperative, mild distress Heart: Regular rate, Normal S1, Normal S2, No murmurs Lungs: Clear Abdomen: Soft, Other (TTP diffusely, VIKY serosang) Extremities: No clubbing, No cyanosis Skin: Other (jaundice) Labs LABS Laboratory Tests Test 01/31/19 16:54 02/01/19 09:36 Glucose (Fingerstick) 111 mg/dL (70-99) White Blood Count 18.2 x10^3/uL (4.0-11.0) Red Blood Count 3.01 x10^6/uL (4.30-5.70) Hemoglobin 9.5 g/dL (13.0-17.5) Hematocrit 28.8 % (39.0-53.0) Mean Corpuscular Volume 96 fL (79-100) Mean Corpuscular Hemoglobin 32 pg (25-35) Mean Corpuscular Hemoglobin Concent 33 g/dL (31-37) Red Cell Distribution Width 15.2 % (11.5-14.5) Platelet Count 291 x10^3/uL (140-400) Neutrophils (%) (Auto) 55 % (31-73) Lymphocytes (%) (Auto) 32 % (24-48) Monocytes (%) (Auto) 9 % (0-9) Eosinophils (%) (Auto) 3 % (0-3) Basophils (%) (Auto) 1 % (0-3) Neutrophils # (Auto) 10.1 x10^3uL (1.8-7.7) Lymphocytes # (Auto) 5.9 x10^3/uL (1.0-4.8) Monocytes # (Auto) 1.6 x10^3/uL (0.0-1.1) Eosinophils # (Auto) 0.6 x10^3/uL (0.0-0.7) Basophils # (Auto) 0.2 x10^3/uL (0.0-0.2) Sodium Level 136 mmol/L (136-145) Potassium Level 3.6 mmol/L (3.5-5.1) Chloride Level 98 mmol/L (98-107) Carbon Dioxide Level 29 mmol/L (21-32) Anion Gap 9 (6-14) Blood Urea Nitrogen 9 mg/dL (8-26) Creatinine 1.0 mg/dL (0.7-1.3) Estimated GFR (Cockcroft-Gault) 84.1 BUN/Creatinine Ratio 9 (6-20) Glucose Level 135 mg/dL (70-99) Calcium Level 8.7 mg/dL (8.5-10.1) Total Bilirubin 2.4 mg/dL (0.2-1.0) Aspartate Amino Transf (AST/SGOT) 38 U/L (15-37) Alanine Aminotransferase (ALT/SGPT) 101 U/L (16-63) Alkaline Phosphatase 254 U/L (46-116) Total Protein 7.2 g/dL (6.4-8.2) Albumin 2.2 g/dL (3.4-5.0) Albumin/Globulin Ratio 0.4 (1.0-1.7) Assessment and Plan Assessmemt and Plan Problems Medical Problems: (1) Common bile duct dilatation Status: Acute (2) Jaundice Status: Acute (3) Morbid obesity Status: Acute Comment Review of Relevant I have reviewed the following items gustavo (where applicable) has been applied. Labs Laboratory Tests Test 01/30/19 16:54 01/30/19 21:26 01/31/19 03:00 01/31/19 11:49 Glucose (Fingerstick) 153 mg/dL (70-99) 129 mg/dL (70-99) 153 mg/dL (70-99) White Blood Count 12.8 x10^3/uL (4.0-11.0) Red Blood Count 3.07 x10^6/uL (4.30-5.70) Hemoglobin 9.7 g/dL (13.0-17.5) Hematocrit 29.1 % (39.0-53.0) Mean Corpuscular Volume 95 fL (79-100) Mean Corpuscular Hemoglobin 32 pg (25-35) Mean Corpuscular Hemoglobin Concent 33 g/dL (31-37) Red Cell Distribution Width 14.7 % (11.5-14.5) Platelet Count 200 x10^3/uL (140-400) Neutrophils (%) (Auto) 50 % (31-73) Lymphocytes (%) (Auto) 34 % (24-48) Monocytes (%) (Auto) 13 % (0-9) Eosinophils (%) (Auto) 2 % (0-3) Basophils (%) (Auto) 1 % (0-3) Neutrophils # (Auto) 6.5 x10^3uL (1.8-7.7) Lymphocytes # (Auto) 4.4 x10^3/uL (1.0-4.8) Monocytes # (Auto) 1.6 x10^3/uL (0.0-1.1) Eosinophils # (Auto) 0.3 x10^3/uL (0.0-0.7) Basophils # (Auto) 0.1 x10^3/uL (0.0-0.2) Sodium Level 134 mmol/L (136-145) Potassium Level 4.0 mmol/L (3.5-5.1) Chloride Level 99 mmol/L (98-107) Carbon Dioxide Level 29 mmol/L (21-32) Anion Gap 6 (6-14) Blood Urea Nitrogen 10 mg/dL (8-26) Creatinine 1.0 mg/dL (0.7-1.3) Estimated GFR (Cockcroft-Gault) 84.1 Glucose Level 168 mg/dL (70-99) Calcium Level 8.5 mg/dL (8.5-10.1) Total Bilirubin 3.1 mg/dL (0.2-1.0) Direct Bilirubin 2.5 mg/dL (0.0-0.2) Aspartate Amino Transf (AST/SGOT) 60 U/L (15-37) Alanine Aminotransferase (ALT/SGPT) 136 U/L (16-63) Alkaline Phosphatase 257 U/L (46-116) Total Protein 6.6 g/dL (6.4-8.2) Albumin 2.2 g/dL (3.4-5.0) Test 01/31/19 16:54 02/01/19 09:36 Glucose (Fingerstick) 111 mg/dL (70-99) White Blood Count 18.2 x10^3/uL (4.0-11.0) Red Blood Count 3.01 x10^6/uL (4.30-5.70) Hemoglobin 9.5 g/dL (13.0-17.5) Hematocrit 28.8 % (39.0-53.0) Mean Corpuscular Volume 96 fL (79-100) Mean Corpuscular Hemoglobin 32 pg (25-35) Mean Corpuscular Hemoglobin Concent 33 g/dL (31-37) Red Cell Distribution Width 15.2 % (11.5-14.5) Platelet Count 291 x10^3/uL (140-400) Neutrophils (%) (Auto) 55 % (31-73) Lymphocytes (%) (Auto) 32 % (24-48) Monocytes (%) (Auto) 9 % (0-9) Eosinophils (%) (Auto) 3 % (0-3) Basophils (%) (Auto) 1 % (0-3) Neutrophils # (Auto) 10.1 x10^3uL (1.8-7.7) Lymphocytes # (Auto) 5.9 x10^3/uL (1.0-4.8) Monocytes # (Auto) 1.6 x10^3/uL (0.0-1.1) Eosinophils # (Auto) 0.6 x10^3/uL (0.0-0.7) Basophils # (Auto) 0.2 x10^3/uL (0.0-0.2) Sodium Level 136 mmol/L (136-145) Potassium Level 3.6 mmol/L (3.5-5.1) Chloride Level 98 mmol/L (98-107) Carbon Dioxide Level 29 mmol/L (21-32) Anion Gap 9 (6-14) Blood Urea Nitrogen 9 mg/dL (8-26) Creatinine 1.0 mg/dL (0.7-1.3) Estimated GFR (Cockcroft-Gault) 84.1 BUN/Creatinine Ratio 9 (6-20) Glucose Level 135 mg/dL (70-99) Calcium Level 8.7 mg/dL (8.5-10.1) Total Bilirubin 2.4 mg/dL (0.2-1.0) Aspartate Amino Transf (AST/SGOT) 38 U/L (15-37) Alanine Aminotransferase (ALT/SGPT) 101 U/L (16-63) Alkaline Phosphatase 254 U/L (46-116) Total Protein 7.2 g/dL (6.4-8.2) Albumin 2.2 g/dL (3.4-5.0) Albumin/Globulin Ratio 0.4 (1.0-1.7) Laboratory Tests Test 01/31/19 16:54 02/01/19 09:36 Glucose (Fingerstick) 111 mg/dL (70-99) White Blood Count 18.2 x10^3/uL (4.0-11.0) Red Blood Count 3.01 x10^6/uL (4.30-5.70) Hemoglobin 9.5 g/dL (13.0-17.5) Hematocrit 28.8 % (39.0-53.0) Mean Corpuscular Volume 96 fL (79-100) Mean Corpuscular Hemoglobin 32 pg (25-35) Mean Corpuscular Hemoglobin Concent 33 g/dL (31-37) Red Cell Distribution Width 15.2 % (11.5-14.5) Platelet Count 291 x10^3/uL (140-400) Neutrophils (%) (Auto) 55 % (31-73) Lymphocytes (%) (Auto) 32 % (24-48) Monocytes (%) (Auto) 9 % (0-9) Eosinophils (%) (Auto) 3 % (0-3) Basophils (%) (Auto) 1 % (0-3) Neutrophils # (Auto) 10.1 x10^3uL (1.8-7.7) Lymphocytes # (Auto) 5.9 x10^3/uL (1.0-4.8) Monocytes # (Auto) 1.6 x10^3/uL (0.0-1.1) Eosinophils # (Auto) 0.6 x10^3/uL (0.0-0.7) Basophils # (Auto) 0.2 x10^3/uL (0.0-0.2) Sodium Level 136 mmol/L (136-145) Potassium Level 3.6 mmol/L (3.5-5.1) Chloride Level 98 mmol/L (98-107) Carbon Dioxide Level 29 mmol/L (21-32) Anion Gap 9 (6-14) Blood Urea Nitrogen 9 mg/dL (8-26) Creatinine 1.0 mg/dL (0.7-1.3) Estimated GFR (Cockcroft-Gault) 84.1 BUN/Creatinine Ratio 9 (6-20) Glucose Level 135 mg/dL (70-99) Calcium Level 8.7 mg/dL (8.5-10.1) Total Bilirubin 2.4 mg/dL (0.2-1.0) Aspartate Amino Transf (AST/SGOT) 38 U/L (15-37) Alanine Aminotransferase (ALT/SGPT) 101 U/L (16-63) Alkaline Phosphatase 254 U/L (46-116) Total Protein 7.2 g/dL (6.4-8.2) Albumin 2.2 g/dL (3.4-5.0) Albumin/Globulin Ratio 0.4 (1.0-1.7) Medications Current Medications Iohexol (Omnipaque 240 Mg/ml) 30 ml 1X ONCE PO Last administered on 01/27/19at 19:15; Start 01/27/19 at 19:15; Stop 01/27/19 at 19:16; Status DC Iohexol (Omnipaque 300 Mg/ml) 75 ml 1X ONCE IV Last administered on 01/27/19at 20:10; Start 01/27/19 at 19:15; Stop 01/27/19 at 19:16; Status DC Info (CONTRAST GIVEN -- Rx MONITORING) 1 each PRN DAILY PRN MC SEE COMMENTS; Start 01/27/19 at 19:30; Stop 01/29/19 at 19:29; Status DC Ketorolac Tromethamine (Toradol 30mg Vial) 30 mg 1X ONCE IV Last administered on 01/27/19at 22:02; Start 01/27/19 at 21:30; Stop 01/27/19 at 21:31; Status DC Sodium Chloride 1,000 ml @ 1,000 mls/hr 1X ONCE IV Last administered on 01/27/19at 21:58; Start 01/27/19 at 21:30; Stop 01/27/19 at 22:29; Status DC Sodium Chloride 1,000 ml @ 150 mls/hr Q6H40M IV Last administered on 01/28/19at 12:34; Start 01/27/19 at 22:00; Stop 01/28/19 at 21:59; Status DC Morphine Sulfate (Morphine Sulfate) 2 mg PRN Q2HR PRN IV PAIN; Start 01/28/19 at 08:15; Stop 01/28/19 at 08:23; Status DC Ketorolac Tromethamine (Toradol 30mg Vial) 20 mg PRN Q6HRS PRN IV MILD PAIN Last administered on 02/01/19at 10:21; Start 01/28/19 at 08:15; Stop 02/02/19 at 08:14 Fentanyl Citrate (Fentanyl 2ml Vial) 50 mcg PRN Q2HR PRN IV MODERATE PAIN, SEVERE PAIN Last administered on 01/29/19at 17:28; Start 01/28/19 at 08:30; Stop 01/29/19 at 18:44; Status DC Cefazolin Sodium/ Dextrose 50 ml @ 100 mls/hr 1X PREOP IV ; Start 01/28/19 at 15:45; Stop 01/29/19 at 10:14; Status DC Fentanyl Citrate (Fentanyl 2ml Vial) 25 mcg PRN Q5MIN PRN IV MILD PAIN; Start 01/29/19 at 07:00; Stop 01/29/19 at 19:00; Status DC Fentanyl Citrate (Fentanyl 2ml Vial) 50 mcg PRN Q5MIN PRN IV MODERATE TO SEVERE PAIN Last administered on 01/29/19at 16:32; Start 01/29/19 at 07:00; Stop 01/29/19 at 19:00; Status DC Ringer's Solution 1,000 ml @ 30 mls/hr Q24H IV Last administered on 01/29/19at 09:49; Start 01/29/19 at 07:00; Stop 01/29/19 at 18:59; Status DC Prochlorperazine Edisylate (Compazine) 5 mg PACU PRN PRN IV NAUSEA, MRX1; Start 01/29/19 at 07:00; Stop 01/29/19 at 19:00; Status DC Dextrose (Dextrose 50%-Water Syringe) 12.5 gm PRN Q15MIN PRN IV SEE COMMENTS; Start 01/28/19 at 19:45; Stop 01/30/19 at 13:49; Status DC Bupivacaine HCl/ Epinephrine Bitart (Sensorcain-Mpf Epi 0.5%-1:368005) 30 ml STK-MED ONCE .ROUTE Last administered on 01/29/19 12:35; Start 01/29/19 at 07:14; Stop 01/29/19 at 08:15; Status DC Cellulose (Surgicel Hemostat 2x3) 1 each STK-MED ONCE .ROUTE Last administered on 01/29/19at 12:35; Start 01/29/19 at 07:14; Stop 01/29/19 at 08:15; Status DC Heparin Sodium (Porcine) (Heparin Sodium) 10,000 unit STK-MED ONCE .ROUTE Last administered on 01/29/19at 12:35; Start 01/29/19 at 07:14; Stop 01/29/19 at 08:15; Status DC Iohexol (Omnipaque 300 Mg/ml) 50 ml STK-MED ONCE .ROUTE Last administered on 01/29/19at 12:35; Start 01/29/19 at 07:14; Stop 01/29/19 at 08:16; Status DC Bisacodyl (Dulcolax Supp) 10 mg STK-MED ONCE .ROUTE Last administered on 01/29/19at 12:35; Start 01/29/19 at 07:15; Stop 01/29/19 at 08:16; Status DC Cefazolin Sodium/ Dextrose 50 ml @ 100 mls/hr 1X PREOP IV ; Start 01/29/19 at 10:15; Stop 01/29/19 at 18:56; Status DC Ondansetron HCl (Zofran) 4 mg STK-MED ONCE .ROUTE ; Start 01/29/19 at 11:34; Stop 01/29/19 at 11:35; Status DC Propofol 20 ml @ As Directed STK-MED ONCE IV ; Start 01/29/19 at 11:34; Stop 01/29/19 at 11:35; Status DC Lidocaine HCl (Lidocaine Pf 2% Vial) 5 ml STK-MED ONCE .ROUTE ; Start 01/29/19 at 11:34; Stop 01/29/19 at 11:35; Status DC Fentanyl Citrate (Fentanyl 2ml Vial) 100 mcg STK-MED ONCE .ROUTE ; Start 01/29/19 at 11:34; Stop 01/29/19 at 11:35; Status DC Dexamethasone Sodium Phosphate (Decadron) 4 mg STK-MED ONCE .ROUTE ; Start 01/29/19 at 11:35; Stop 01/29/19 at 11:36; Status DC [place] (Zemuron) 50 mg STK-MED ONCE .ROUTE ; Start 01/29/19 at 11:35; Stop 01/29/19 at 11:36; Status DC Succinylcholine Chloride (Anectine) 200 mg STK-MED ONCE .ROUTE ; Start 01/29/19 at 11:54; Stop 01/29/19 at 11:55; Status DC Cefazolin Sodium 100 ml @ As Directed STK-MED ONCE IV ; Start 01/29/19 at 12:06; Stop 01/29/19 at 12:07; Status DC Cefazolin Sodium 50 ml @ As Directed STK-MED ONCE IV ; Start 01/29/19 at 12:07; Stop 01/29/19 at 12:08; Status DC Cefazolin Sodium 3 gm/Dextrose 100 ml @ 200 mls/hr 1X ONCE IV Last administered on 01/29/19at 12:09; Start 01/29/19 at 13:00; Stop 01/29/19 at 13:29; Status DC Glycopyrrolate (Robinul) 1 mg STK-MED ONCE .ROUTE ; Start 01/29/19 at 12:57; Stop 01/29/19 at 12:58; Status DC Neostigmine Methylsulfate (Neostigmine Methylsulfate) 5 mg STK-MED ONCE .ROUTE ; Start 01/29/19 at 12:58; Stop 01/29/19 at 12:59; Status DC [place] (Zemuron) 50 mg STK-MED ONCE .ROUTE ; Start 01/29/19 at 13:07; Stop 01/29/19 at 13:08; Status DC Fentanyl Citrate (Fentanyl 2ml Vial) 100 mcg STK-MED ONCE .ROUTE ; Start 01/29/19 at 13:10; Stop 01/29/19 at 13:11; Status DC Iohexol (Omnipaque 300 Mg/ml) 50 ml STK-MED ONCE .ROUTE Last administered on 01/29/19at 12:35; Start 01/29/19 at 12:36; Stop 01/29/19 at 13:37; Status DC Cellulose (Surgicel Hemostat 4x8) 1 each STK-MED ONCE .ROUTE Last administered on 01/29/19at 12:35; Start 01/29/19 at 13:42; Stop 01/29/19 at 14:42; Status DC Cellulose (Surgicel Hemostat 4x8) 1 each STK-MED ONCE .ROUTE Last administered on 01/29/19at 12:35; Start 01/29/19 at 13:46; Stop 01/29/19 at 14:46; Status DC Ketorolac Tromethamine (Toradol For Or Only) 30 mg STK-MED ONCE INJ ; Start 01/29/19 at 14:59; Stop 01/29/19 at 15:00; Status DC Glycopyrrolate (Robinul) 1 mg STK-MED ONCE .ROUTE ; Start 01/29/19 at 15:13; Stop 01/29/19 at 15:14; Status DC Neostigmine Methylsulfate (Neostigmine Methylsulfate) 5 mg STK-MED ONCE .ROUTE ; Start 01/29/19 at 15:13; Stop 01/29/19 at 15:14; Status DC Sevoflurane (Ultane) 90 ml STK-MED ONCE IH ; Start 01/29/19 at 15:20; Stop 01/29/19 at 15:21; Status DC Fentanyl Citrate (Fentanyl 2ml Vial) 100 mcg STK-MED ONCE .ROUTE ; Start 01/29/19 at 15:32; Stop 01/29/19 at 15:33; Status DC Fentanyl Citrate (Fentanyl 2ml Vial) 100 mcg STK-MED ONCE .ROUTE ; Start 01/29/19 at 15:48; Stop 01/29/19 at 15:49; Status DC Sodium Chloride (Normal Saline Flush) 3 ml QSHIFT PRN IV AFTER MEDS AND BLOOD DRAWS; Start 01/29/19 at 16:00 Ringer's Solution 1,000 ml @ 100 mls/hr Q10H IV Last administered on 01/31/19at 16:36; Start 01/29/19 at 15:46; Stop 02/01/19 at 01:42; Status DC Dextrose (Dextrose 50%-Water Syringe) 12.5 gm PRN Q15MIN PRN IV SEE COMMENTS; Start 01/29/19 at 16:00 Acetaminophen/ Hydrocodone Bitart (Lortab 5/325) 1 tab PRN Q4HRS PRN PO MILD PAIN Last administered on 01/29/19at 17:28; Start 01/29/19 at 16:00; Stop 01/29/19 at 18:45; Status DC Docusate Sodium (Colace) 100 mg BID PO Last administered on 01/31/19at 21:26; Start 01/29/19 at 21:00 Ondansetron HCl (Zofran) 4 mg PRN Q6HRS PRN IV NAUESA, 1ST CHOICE Last administered on 01/31/19at 03:58; Start 01/29/19 at 16:00 Famotidine (Pepcid Vial) 20 mg 1X ONCE IVP Last administered on 01/29/19at 16:14; Start 01/29/19 at 16:15; Stop 01/29/19 at 16:16; Status DC Pantoprazole Sodium (Protonix) 40 mg DAILYAC PO Last administered on 02/01/19at 07:02; Start 01/30/19 at 07:30 Fentanyl Citrate (Fentanyl 2ml Vial) 75 mcg PRN Q2HR PRN IV SEVERE PAIN Last administered on 02/01/19at 00:09; Start 01/29/19 at 18:45; Stop 02/01/19 at 00:13; Status DC Acetaminophen/ Hydrocodone Bitart (Lortab 10/325) 1 tab PRN Q6HRS PRN PO MODERATE PAIN Last administered on 01/31/19at 18:44; Start 01/29/19 at 18:45; Stop 01/31/19 at 23:58; Status DC Cefazolin Sodium/ Dextrose (Ancef 2gm Premix) 2 gm STK-MED ONCE IV ; Start 01/28/19 at 11:00; Stop 01/30/19 at 07:38; Status DC Oxycodone/ Acetaminophen (Percocet 10/325) 1 tab PRN Q4HRS PRN PO severe pain Last administered on 02/01/19at 10:58; Start 01/31/19 at 20:45 Fentanyl Citrate (Fentanyl 2ml Vial) 75 mcg PRN Q4HRS PRN IV SEVERE PAIN Last administered on 02/01/19at 09:04; Start 02/01/19 at 00:15 Active Scripts Active Reported Buspirone Hcl 30 Mg Tablet 1 Tab PO BID Protonix (Pantoprazole Sodium) 20 Mg Tablet.dr 2 Tab PO DAILY Zantac (Ranitidine Hcl) 150 Mg Tablet 1 Tab PO HS Tums (Calcium Carbonate) 200 Mg Tab.chew 200 Mg PO TID Zyprexa (Olanzapine) 15 Mg Tablet 1 Tab PO QHS Remeron (Mirtazapine) 15 Mg Tablet 3 Tab PO QHS Lisinopril 2.5 Mg Tablet 1 Tab PO DAILY Atorvastatin Calcium 20 Mg Tablet 1 Tab PO DAILY Haloperidol 10 Mg Tablet 10 Mg PO DAILY Prozac (Fluoxetine Hcl) 40 Mg Capsule 1 Cap PO HS Metformin Hcl 500 Mg Tablet 500 Mg PO BIDWMEALS Vitals/I & O Vital Sign - Last 24 Hours 01/31/19 01/31/19 01/31/19 01/31/19 12:25 14:29 15:00 16:33 Temp 98.1 98.1 Pulse 98 Resp 16 B/P (MAP) 125/74 (91) Pulse Ox 93 O2 Delivery Room Air Room Air Room Air Room Air 01/31/19 01/31/19 01/31/19 01/31/19 17:40 18:44 19:15 20:00 Temp 100.9 100.9 Pulse 107 Resp 18 B/P (MAP) 133/78 (96) Pulse Ox 99 O2 Delivery Room Air Room Air Room Air Room Air 01/31/19 01/31/19 01/31/19 02/01/19 20:01 21:35 23:18 00:09 Temp 100.6 100.6 Pulse 100 Resp 20 20 20 20 B/P (MAP) 126/78 (94) Pulse Ox 93 93 92 92 O2 Delivery Room Air Room Air Room Air Room Air 02/01/19 02/01/19 02/01/19 02/01/19 01:39 02:39 03:19 04:52 Temp 99.2 99.2 Pulse 103 Resp 20 2 18 20 B/P (MAP) 121/73 (89) Pulse Ox 92 98 98 98 O2 Delivery Room Air Room Air Room Air 02/01/19 02/01/19 02/01/19 02/01/19 05:22 07:00 07:02 07:45 Temp 98.6 98.6 Pulse 98 Resp 20 18 18 B/P (MAP) 126/75 (92) Pulse Ox 98 91 98 O2 Delivery Room Air Room Air Room Air 02/01/19 02/01/19 02/01/19 02/01/19 09:04 09:44 10:58 11:00 Temp 98.6 98.6 Pulse 94 Resp 18 B/P (MAP) 149/86 (107) Pulse Ox 93 O2 Delivery Room Air Room Air Room Air Room Air 02/01/19 12:13 O2 Delivery Room Air Intake and Output 01/31/19 01/31/19 02/01/19 15:00 23:00 07:00 Intake Total 740 ml Output Total 300 ml 600 ml Balance -300 ml 140 ml BERNARDINO COX MD February 01, 2019 12:22
--- NOTE | 2019-02-01 12:24 | PDOC ---
SURGICAL PROGRESS NOTE Subjective Complains of upper abdominal pain and cough Vital Signs Vital Signs Date Time Temp Pulse Resp B/P (MAP) Pulse Ox O2 Delivery O2 Flow Rate FiO2 02/01/19 12:13 Room Air 02/01/19 11:00 98.6 94 18 149/86 (107) 93 98.6 I&O Intake and Output 02/01/19 07:00 Intake Total 740 ml Output Total 900 ml Balance -160 ml Intake Oral 740 ml Output Urine Total 900 ml PATIENT HAS A ULLOA: No General: Alert, Oriented X3, Cooperative, mild distress, Other (jaundice) Abdomen: Normal bowel sounds, Soft, Other (incisional tenderness, VIKY drain with bloody output) Labs Laboratory Tests Test 01/30/19 16:54 01/30/19 21:26 01/31/19 03:00 01/31/19 11:49 Glucose (Fingerstick) 153 mg/dL (70-99) 129 mg/dL (70-99) 153 mg/dL (70-99) White Blood Count 12.8 x10^3/uL (4.0-11.0) Red Blood Count 3.07 x10^6/uL (4.30-5.70) Hemoglobin 9.7 g/dL (13.0-17.5) Hematocrit 29.1 % (39.0-53.0) Mean Corpuscular Volume 95 fL (79-100) Mean Corpuscular Hemoglobin 32 pg (25-35) Mean Corpuscular Hemoglobin Concent 33 g/dL (31-37) Red Cell Distribution Width 14.7 % (11.5-14.5) Platelet Count 200 x10^3/uL (140-400) Neutrophils (%) (Auto) 50 % (31-73) Lymphocytes (%) (Auto) 34 % (24-48) Monocytes (%) (Auto) 13 % (0-9) Eosinophils (%) (Auto) 2 % (0-3) Basophils (%) (Auto) 1 % (0-3) Neutrophils # (Auto) 6.5 x10^3uL (1.8-7.7) Lymphocytes # (Auto) 4.4 x10^3/uL (1.0-4.8) Monocytes # (Auto) 1.6 x10^3/uL (0.0-1.1) Eosinophils # (Auto) 0.3 x10^3/uL (0.0-0.7) Basophils # (Auto) 0.1 x10^3/uL (0.0-0.2) Sodium Level 134 mmol/L (136-145) Potassium Level 4.0 mmol/L (3.5-5.1) Chloride Level 99 mmol/L (98-107) Carbon Dioxide Level 29 mmol/L (21-32) Anion Gap 6 (6-14) Blood Urea Nitrogen 10 mg/dL (8-26) Creatinine 1.0 mg/dL (0.7-1.3) Estimated GFR (Cockcroft-Gault) 84.1 Glucose Level 168 mg/dL (70-99) Calcium Level 8.5 mg/dL (8.5-10.1) Total Bilirubin 3.1 mg/dL (0.2-1.0) Direct Bilirubin 2.5 mg/dL (0.0-0.2) Aspartate Amino Transf (AST/SGOT) 60 U/L (15-37) Alanine Aminotransferase (ALT/SGPT) 136 U/L (16-63) Alkaline Phosphatase 257 U/L (46-116) Total Protein 6.6 g/dL (6.4-8.2) Albumin 2.2 g/dL (3.4-5.0) Test 01/31/19 16:54 02/01/19 09:36 Glucose (Fingerstick) 111 mg/dL (70-99) White Blood Count 18.2 x10^3/uL (4.0-11.0) Red Blood Count 3.01 x10^6/uL (4.30-5.70) Hemoglobin 9.5 g/dL (13.0-17.5) Hematocrit 28.8 % (39.0-53.0) Mean Corpuscular Volume 96 fL (79-100) Mean Corpuscular Hemoglobin 32 pg (25-35) Mean Corpuscular Hemoglobin Concent 33 g/dL (31-37) Red Cell Distribution Width 15.2 % (11.5-14.5) Platelet Count 291 x10^3/uL (140-400) Neutrophils (%) (Auto) 55 % (31-73) Lymphocytes (%) (Auto) 32 % (24-48) Monocytes (%) (Auto) 9 % (0-9) Eosinophils (%) (Auto) 3 % (0-3) Basophils (%) (Auto) 1 % (0-3) Neutrophils # (Auto) 10.1 x10^3uL (1.8-7.7) Lymphocytes # (Auto) 5.9 x10^3/uL (1.0-4.8) Monocytes # (Auto) 1.6 x10^3/uL (0.0-1.1) Eosinophils # (Auto) 0.6 x10^3/uL (0.0-0.7) Basophils # (Auto) 0.2 x10^3/uL (0.0-0.2) Sodium Level 136 mmol/L (136-145) Potassium Level 3.6 mmol/L (3.5-5.1) Chloride Level 98 mmol/L (98-107) Carbon Dioxide Level 29 mmol/L (21-32) Anion Gap 9 (6-14) Blood Urea Nitrogen 9 mg/dL (8-26) Creatinine 1.0 mg/dL (0.7-1.3) Estimated GFR (Cockcroft-Gault) 84.1 BUN/Creatinine Ratio 9 (6-20) Glucose Level 135 mg/dL (70-99) Calcium Level 8.7 mg/dL (8.5-10.1) Total Bilirubin 2.4 mg/dL (0.2-1.0) Aspartate Amino Transf (AST/SGOT) 38 U/L (15-37) Alanine Aminotransferase (ALT/SGPT) 101 U/L (16-63) Alkaline Phosphatase 254 U/L (46-116) Total Protein 7.2 g/dL (6.4-8.2) Albumin 2.2 g/dL (3.4-5.0) Albumin/Globulin Ratio 0.4 (1.0-1.7) Laboratory Tests Test 01/31/19 16:54 02/01/19 09:36 Glucose (Fingerstick) 111 mg/dL (70-99) White Blood Count 18.2 x10^3/uL (4.0-11.0) Red Blood Count 3.01 x10^6/uL (4.30-5.70) Hemoglobin 9.5 g/dL (13.0-17.5) Hematocrit 28.8 % (39.0-53.0) Mean Corpuscular Volume 96 fL (79-100) Mean Corpuscular Hemoglobin 32 pg (25-35) Mean Corpuscular Hemoglobin Concent 33 g/dL (31-37) Red Cell Distribution Width 15.2 % (11.5-14.5) Platelet Count 291 x10^3/uL (140-400) Neutrophils (%) (Auto) 55 % (31-73) Lymphocytes (%) (Auto) 32 % (24-48) Monocytes (%) (Auto) 9 % (0-9) Eosinophils (%) (Auto) 3 % (0-3) Basophils (%) (Auto) 1 % (0-3) Neutrophils # (Auto) 10.1 x10^3uL (1.8-7.7) Lymphocytes # (Auto) 5.9 x10^3/uL (1.0-4.8) Monocytes # (Auto) 1.6 x10^3/uL (0.0-1.1) Eosinophils # (Auto) 0.6 x10^3/uL (0.0-0.7) Basophils # (Auto) 0.2 x10^3/uL (0.0-0.2) Sodium Level 136 mmol/L (136-145) Potassium Level 3.6 mmol/L (3.5-5.1) Chloride Level 98 mmol/L (98-107) Carbon Dioxide Level 29 mmol/L (21-32) Anion Gap 9 (6-14) Blood Urea Nitrogen 9 mg/dL (8-26) Creatinine 1.0 mg/dL (0.7-1.3) Estimated GFR (Cockcroft-Gault) 84.1 BUN/Creatinine Ratio 9 (6-20) Glucose Level 135 mg/dL (70-99) Calcium Level 8.7 mg/dL (8.5-10.1) Total Bilirubin 2.4 mg/dL (0.2-1.0) Aspartate Amino Transf (AST/SGOT) 38 U/L (15-37) Alanine Aminotransferase (ALT/SGPT) 101 U/L (16-63) Alkaline Phosphatase 254 U/L (46-116) Total Protein 7.2 g/dL (6.4-8.2) Albumin 2.2 g/dL (3.4-5.0) Albumin/Globulin Ratio 0.4 (1.0-1.7) Problem List Problems Medical Problems: (1) Common bile duct dilatation Status: Acute (2) Jaundice Status: Acute (3) Morbid obesity Status: Acute Assessment/Plan S/P L/S bonita with CBD exploration Improving LFT's elevated wbc afebrile Continue supportive care BERNARDNIO LAMB MD February 01, 2019 12:24
[2019-02-01 15:00] VITALS: BP 130/85
[2019-02-01] MEDS: metFORMIN 500 MG TABLET PO SCH (18:35)
[2019-02-01 19:00] VITALS: BP 136/89
[2019-02-01] MEDS: ATORVASTATIN CALCIUM 20 MG TABLET PO SCH (20:41)
[2019-02-01] MEDS: OLANZapine 5 MG TABLET PO SCH (20:41)
[2019-02-01] MEDS: busPIRone 10 MG TABLET. PO SCH (20:41)
[2019-02-01] MEDS: MIRTAZAPINE 15 MG TABLET PO SCH (20:41)
[2019-02-01] MEDS: FLUoxetine HCL 20 MG CAPSULE PO SCH (20:41)
[2019-02-01 23:00] VITALS: BP 143/79
[2019-02-02] MEDS: fentaNYL PF VIAL 100 MCG/2 ML VIAL IV PRN ×7 (01:24→23:04)
[2019-02-02 03:00] VITALS: BP 137/87
[2019-02-02] MEDS: oxyCODONE/APAP 10/325 1 TAB TABLET PO PRN ×5 (03:24→21:04)
[2019-02-02 04:36] LABS: BASO # 0.1 x10^3/uL (0.0-0.2); BASO % 1 % (0-3); EOS # 0.4 x10^3/uL (0.0-0.7); EOS % 2 % (0-3); HEMATOCRIT 27.7 % (39.0-53.0); HEMOGLOBIN 9.2 g/dL (13.0-17.5); LYMPH # 3.8 x10^3/uL (1.0-4.8); LYMPH % 21 % (24-48); MEAN CORPUSCULAR HEMOGLOBIN 32 pg (25-35); MEAN CORPUSCULAR HGB CONC 33 g/dL (31-37); MEAN CORPUSCULAR VOLUME 95 fL (79-100); MONO # 1.6 x10^3/uL (0.0-1.1); MONO % 9 % (0-9); NEUT % 67 % (31-73); PLATELET COUNT 350 x10^3/uL (140-400); RED BLOOD COUNT 2.92 x10^6/uL (4.30-5.70); RED CELL DISTRIBUTION WIDTH 14.8 % (11.5-14.5); WHITE BLOOD COUNT 17.9 x10^3/uL (4.0-11.0)
[2019-02-02 04:53] LABS: CALCIUM 8.5 mg/dL (8.5-10.1); GFR 84.1; POTASSIUM 4.2 mmol/L (3.5-5.1)
[2019-02-02 07:00] VITALS: BP 153/87
[2019-02-02] MEDS: PANTOPRAZOLE 40 MG TABLET.DR. PO SCH ×2 (07:25→08:03)
[2019-02-02] MEDS: metFORMIN 500 MG TABLET PO SCH ×2 (08:03→16:50)
[2019-02-02] MEDS: busPIRone 10 MG TABLET. PO SCH ×2 (08:03→21:01)
[2019-02-02] MEDS: DOCUSATE SODIUM 100 MG CAPSULE. PO SCH ×2 (08:03→21:02)
[2019-02-02] MEDS: LISINOPRIL 5 MG TABLET. PO SCH (08:04)
[2019-02-02] MEDS: HALOPERIDOL 5 MG TABLET. PO SCH (08:53)
--- NOTE | 2019-02-02 09:52 | PDOC ---
PROGRESS NOTES History of Present Illness History of Present Illness Assessment/Plan Jaundice with transaminitis and hyperbilirubinemia some variable appearance of intraluminal filling defects in the common bile duct although confidently seen on last image Round filling defect in the distal common bile duct is likely choledocholithiasis rather than mass,. There is biliary ductal dilatation. cholelithiasis. T2 hyperintense liver lesions are more likely due to hemangiomas or complex cysts with debris, persistent pain, mod severe, CONTINUES normocytic anemia FEVER OVERNIGHT 101.6 F 02/01 Plan admitted general surgery and GI following d/w dr aj in [place], ok for d/c today abdominal ultrasound reviewed DVT prophylaxis full code home meds IV fluids when necessary Zofran when necessary prn narcotics prognosis guarded FOLLOW LFT'S, CBC, Surgery plans to check cbc in am, cancel d/c plans today 42 MIN PT EXAM, chart review, > 50% of time spent with exam, chart review, pt care coordination Vitals Vitals Vital Signs Date Time Temp Pulse Resp B/P (MAP) Pulse Ox O2 Delivery O2 Flow Rate FiO2 02/02/19 09:06 Room Air 02/02/19 08:04 107 153/87 02/02/19 07:00 99.4 18 91 99.4 02/02/19 06:03 2.0 Physical Exam General: Alert, Oriented X3, Cooperative, mild distress, Other (jaundice) Heart: Regular rate, Normal S1, Normal S2, No murmurs Lungs: Clear Abdomen: Normal bowel sounds, Soft, No tenderness, Other (incisional tenderness, VIKY drain with bloody output) Extremities: No clubbing, No cyanosis Skin: Other (jaundice) Labs LABS Laboratory Tests Test 02/02/19 04:10 White Blood Count 17.9 x10^3/uL (4.0-11.0) Red Blood Count 2.92 x10^6/uL (4.30-5.70) Hemoglobin 9.2 g/dL (13.0-17.5) Hematocrit 27.7 % (39.0-53.0) Mean Corpuscular Volume 95 fL (79-100) Mean Corpuscular Hemoglobin 32 pg (25-35) Mean Corpuscular Hemoglobin Concent 33 g/dL (31-37) Red Cell Distribution Width 14.8 % (11.5-14.5) Platelet Count 350 x10^3/uL (140-400) Neutrophils (%) (Auto) 67 % (31-73) Lymphocytes (%) (Auto) 21 % (24-48) Monocytes (%) (Auto) 9 % (0-9) Eosinophils (%) (Auto) 2 % (0-3) Basophils (%) (Auto) 1 % (0-3) Neutrophils # (Auto) 12.0 x10^3uL (1.8-7.7) Lymphocytes # (Auto) 3.8 x10^3/uL (1.0-4.8) Monocytes # (Auto) 1.6 x10^3/uL (0.0-1.1) Eosinophils # (Auto) 0.4 x10^3/uL (0.0-0.7) Basophils # (Auto) 0.1 x10^3/uL (0.0-0.2) Sodium Level 132 mmol/L (136-145) Potassium Level 4.2 mmol/L (3.5-5.1) Chloride Level 97 mmol/L (98-107) Carbon Dioxide Level 29 mmol/L (21-32) Anion Gap 6 (6-14) Blood Urea Nitrogen 11 mg/dL (8-26) Creatinine 1.0 mg/dL (0.7-1.3) Estimated GFR (Cockcroft-Gault) 84.1 Glucose Level 183 mg/dL (70-99) Calcium Level 8.5 mg/dL (8.5-10.1) Assessment and Plan Assessmemt and Plan Problems Medical Problems: (1) Common bile duct dilatation Status: Acute (2) Jaundice Status: Acute (3) Morbid obesity Status: Acute Comment Review of Relevant I have reviewed the following items gustavo (where applicable) has been applied. Labs Laboratory Tests Test 01/31/19 11:49 01/31/19 16:54 02/01/19 09:36 02/02/19 04:10 Glucose (Fingerstick) 153 mg/dL (70-99) 111 mg/dL (70-99) White Blood Count 18.2 x10^3/uL (4.0-11.0) 17.9 x10^3/uL (4.0-11.0) Red Blood Count 3.01 x10^6/uL (4.30-5.70) 2.92 x10^6/uL (4.30-5.70) Hemoglobin 9.5 g/dL (13.0-17.5) 9.2 g/dL (13.0-17.5) Hematocrit 28.8 % (39.0-53.0) 27.7 % (39.0-53.0) Mean Corpuscular Volume 96 fL (79-100) 95 fL (79-100) Mean Corpuscular Hemoglobin 32 pg (25-35) 32 pg (25-35) Mean Corpuscular Hemoglobin Concent 33 g/dL (31-37) 33 g/dL (31-37) Red Cell Distribution Width 15.2 % (11.5-14.5) 14.8 % (11.5-14.5) Platelet Count 291 x10^3/uL (140-400) 350 x10^3/uL (140-400) Neutrophils (%) (Auto) 55 % (31-73) 67 % (31-73) Lymphocytes (%) (Auto) 32 % (24-48) 21 % (24-48) Monocytes (%) (Auto) 9 % (0-9) 9 % (0-9) Eosinophils (%) (Auto) 3 % (0-3) 2 % (0-3) Basophils (%) (Auto) 1 % (0-3) 1 % (0-3) Neutrophils # (Auto) 10.1 x10^3uL (1.8-7.7) 12.0 x10^3uL (1.8-7.7) Lymphocytes # (Auto) 5.9 x10^3/uL (1.0-4.8) 3.8 x10^3/uL (1.0-4.8) Monocytes # (Auto) 1.6 x10^3/uL (0.0-1.1) 1.6 x10^3/uL (0.0-1.1) Eosinophils # (Auto) 0.6 x10^3/uL (0.0-0.7) 0.4 x10^3/uL (0.0-0.7) Basophils # (Auto) 0.2 x10^3/uL (0.0-0.2) 0.1 x10^3/uL (0.0-0.2) Sodium Level 136 mmol/L (136-145) 132 mmol/L (136-145) Potassium Level 3.6 mmol/L (3.5-5.1) 4.2 mmol/L (3.5-5.1) Chloride Level 98 mmol/L (98-107) 97 mmol/L (98-107) Carbon Dioxide Level 29 mmol/L (21-32) 29 mmol/L (21-32) Anion Gap 9 (6-14) 6 (6-14) Blood Urea Nitrogen 9 mg/dL (8-26) 11 mg/dL (8-26) Creatinine 1.0 mg/dL (0.7-1.3) 1.0 mg/dL (0.7-1.3) Estimated GFR (Cockcroft-Gault) 84.1 84.1 BUN/Creatinine Ratio 9 (6-20) Glucose Level 135 mg/dL (70-99) 183 mg/dL (70-99) Calcium Level 8.7 mg/dL (8.5-10.1) 8.5 mg/dL (8.5-10.1) Total Bilirubin 2.4 mg/dL (0.2-1.0) Aspartate Amino Transf (AST/SGOT) 38 U/L (15-37) Alanine Aminotransferase (ALT/SGPT) 101 U/L (16-63) Alkaline Phosphatase 254 U/L (46-116) Total Protein 7.2 g/dL (6.4-8.2) Albumin 2.2 g/dL (3.4-5.0) Albumin/Globulin Ratio 0.4 (1.0-1.7) Laboratory Tests Test 02/02/19 04:10 White Blood Count 17.9 x10^3/uL (4.0-11.0) Red Blood Count 2.92 x10^6/uL (4.30-5.70) Hemoglobin 9.2 g/dL (13.0-17.5) Hematocrit 27.7 % (39.0-53.0) Mean Corpuscular Volume 95 fL (79-100) Mean Corpuscular Hemoglobin 32 pg (25-35) Mean Corpuscular Hemoglobin Concent 33 g/dL (31-37) Red Cell Distribution Width 14.8 % (11.5-14.5) Platelet Count 350 x10^3/uL (140-400) Neutrophils (%) (Auto) 67 % (31-73) Lymphocytes (%) (Auto) 21 % (24-48) Monocytes (%) (Auto) 9 % (0-9) Eosinophils (%) (Auto) 2 % (0-3) Basophils (%) (Auto) 1 % (0-3) Neutrophils # (Auto) 12.0 x10^3uL (1.8-7.7) Lymphocytes # (Auto) 3.8 x10^3/uL (1.0-4.8) Monocytes # (Auto) 1.6 x10^3/uL (0.0-1.1) Eosinophils # (Auto) 0.4 x10^3/uL (0.0-0.7) Basophils # (Auto) 0.1 x10^3/uL (0.0-0.2) Sodium Level 132 mmol/L (136-145) Potassium Level 4.2 mmol/L (3.5-5.1) Chloride Level 97 mmol/L (98-107) Carbon Dioxide Level 29 mmol/L (21-32) Anion Gap 6 (6-14) Blood Urea Nitrogen 11 mg/dL (8-26) Creatinine 1.0 mg/dL (0.7-1.3) Estimated GFR (Cockcroft-Gault) 84.1 Glucose Level 183 mg/dL (70-99) Calcium Level 8.5 mg/dL (8.5-10.1) Medications Current Medications Iohexol (Omnipaque 240 Mg/ml) 30 ml 1X ONCE PO Last administered on 01/27/19at 19:15; Start 01/27/19 at 19:15; Stop 01/27/19 at 19:16; Status DC Iohexol (Omnipaque 300 Mg/ml) 75 ml 1X ONCE IV Last administered on 01/27/19at 20:10; Start 01/27/19 at 19:15; Stop 01/27/19 at 19:16; Status DC Info (CONTRAST GIVEN -- Rx MONITORING) 1 each PRN DAILY PRN MC SEE COMMENTS; Start 01/27/19 at 19:30; Stop 01/29/19 at 19:29; Status DC Ketorolac Tromethamine (Toradol 30mg Vial) 30 mg 1X ONCE IV Last administered on 01/27/19at 22:02; Start 01/27/19 at 21:30; Stop 01/27/19 at 21:31; Status DC Sodium Chloride 1,000 ml @ 1,000 mls/hr 1X ONCE IV Last administered on 01/27/19at 21:58; Start 01/27/19 at 21:30; Stop 01/27/19 at 22:29; Status DC Sodium Chloride 1,000 ml @ 150 mls/hr Q6H40M IV Last administered on 01/28/19at 12:34; Start 01/27/19 at 22:00; Stop 01/28/19 at 21:59; Status DC Morphine Sulfate (Morphine Sulfate) 2 mg PRN Q2HR PRN IV PAIN; Start 01/28/19 at 08:15; Stop 01/28/19 at 08:23; Status DC Ketorolac Tromethamine (Toradol 30mg Vial) 20 mg PRN Q6HRS PRN IV MILD PAIN Last administered on 02/01/19at 16:29; Start 01/28/19 at 08:15; Stop 02/02/19 at 08:14; Status DC Fentanyl Citrate (Fentanyl 2ml Vial) 50 mcg PRN Q2HR PRN IV MODERATE PAIN, SEVERE PAIN Last administered on 01/29/19at 17:28; Start 01/28/19 at 08:30; Stop 01/29/19 at 18:44; Status DC Cefazolin Sodium/ Dextrose 50 ml @ 100 mls/hr 1X PREOP IV ; Start 01/28/19 at 15:45; Stop 01/29/19 at 10:14; Status DC Fentanyl Citrate (Fentanyl 2ml Vial) 25 mcg PRN Q5MIN PRN IV MILD PAIN; Start 01/29/19 at 07:00; Stop 01/29/19 at 19:00; Status DC Fentanyl Citrate (Fentanyl 2ml Vial) 50 mcg PRN Q5MIN PRN IV MODERATE TO SEVERE PAIN Last administered on 01/29/19at 16:32; Start 01/29/19 at 07:00; Stop 01/29/19 at 19:00; Status DC Ringer's Solution 1,000 ml @ 30 mls/hr Q24H IV Last administered on 01/29/19at 09:49; Start 01/29/19 at 07:00; Stop 01/29/19 at 18:59; Status DC Prochlorperazine Edisylate (Compazine) 5 mg PACU PRN PRN IV NAUSEA, MRX1; Start 01/29/19 at 07:00; Stop 01/29/19 at 19:00; Status DC Dextrose (Dextrose 50%-Water Syringe) 12.5 gm PRN Q15MIN PRN IV SEE COMMENTS; Start 01/28/19 at 19:45; Stop 01/30/19 at 13:49; Status DC Bupivacaine HCl/ Epinephrine Bitart (Sensorcain-Mpf Epi 0.5%-[id number]) 30 ml STK-MED ONCE .ROUTE Last administered on 01/29/19at 12:35; Start 01/29/19 at 07:14; Stop 01/29/19 at 08:15; Status DC Cellulose (Surgicel Hemostat 2x3) 1 each STK-MED ONCE .ROUTE Last administered on 01/29/19at 12:35; Start 01/29/19 at 07:14; Stop 01/29/19 at 08:15; Status DC Heparin Sodium (Porcine) (Heparin Sodium) 10,000 unit STK-MED ONCE .ROUTE Last administered on 01/29/19at 12:35; Start 01/29/19 at 07:14; Stop 01/29/19 at 08:15; Status DC Iohexol (Omnipaque 300 Mg/ml) 50 ml STK-MED ONCE .ROUTE Last administered on 01/29/19at 12:35; Start 01/29/19 at 07:14; Stop 01/29/19 at 08:16; Status DC Bisacodyl (Dulcolax Supp) 10 mg STK-MED ONCE .ROUTE Last administered on 01/29/19at 12:35; Start 01/29/19 at 07:15; Stop 01/29/19 at 08:16; Status DC Cefazolin Sodium/ Dextrose 50 ml @ 100 mls/hr 1X PREOP IV ; Start 01/29/19 at 10:15; Stop 01/29/19 at 18:56; Status DC Ondansetron HCl (Zofran) 4 mg STK-MED ONCE .ROUTE ; Start 01/29/19 at 11:34; Stop 01/29/19 at 11:35; Status DC Propofol 20 ml @ As Directed STK-MED ONCE IV ; Start 01/29/19 at 11:34; Stop at 11:35; Status DC Lidocaine HCl (Lidocaine Pf 2% Vial) 5 ml STK-MED ONCE .ROUTE ; Start 01/29/19 at 11:34; Stop 01/29/19 at 11:35; Status DC Fentanyl Citrate (Fentanyl 2ml Vial) 100 mcg STK-MED ONCE .ROUTE ; Start 01/29/19 at 11:34; Stop 01/29/19 at 11:35; Status DC Dexamethasone Sodium Phosphate (Decadron) 4 mg STK-MED ONCE .ROUTE ; Start 01/29/19 at 11:35; Stop 01/29/19 at 11:36; Status DC Rocuronium [place] (Zemuron) 50 mg STK-MED ONCE .ROUTE ; Start 01/29/19 at 11:35; Stop 01/29/19 at 11:36; Status DC Succinylcholine Chloride (Anectine) 200 mg STK-MED ONCE .ROUTE ; Start 01/29/19 at 11:54; Stop 01/29/19 at 11:55; Status DC Cefazolin Sodium 100 ml @ As Directed STK-MED ONCE IV ; Start 01/29/19 at 12:06; Stop 01/29/19 at 12:07; Status DC Cefazolin Sodium 50 ml @ As Directed STK-MED ONCE IV ; Start 01/29/19 at 12:07; Stop 01/29/19 at 12:08; Status DC Cefazolin Sodium 3 gm/Dextrose 100 ml @ 200 mls/hr 1X ONCE IV Last administered on 01/29/19at 12:09; Start 01/29/19 at 13:00; Stop 01/29/19 at 13:29; Status DC Glycopyrrolate (Robinul) 1 mg STK-MED ONCE .ROUTE ; Start 01/29/19 at 12:57; Stop 01/29/19 at 12:58; Status DC Neostigmine Methylsulfate (Neostigmine Methylsulfate) 5 mg STK-MED ONCE .ROUTE ; Start 01/29/19 at 12:58; Stop 01/29/19 at 12:59; Status DC Rocuronium [place] (Zemuron) 50 mg STK-MED ONCE .ROUTE ; Start 01/29/19 at 13:07; Stop 01/29/19 at 13:08; Status DC Fentanyl Citrate (Fentanyl 2ml Vial) 100 mcg STK-MED ONCE .ROUTE ; Start 01/29/19 at 13:10; Stop 01/29/19 at 13:11; Status DC Iohexol (Omnipaque 300 Mg/ml) 50 ml STK-MED ONCE .ROUTE Last administered on 01/29/19at 12:35; Start 01/29/19 at 12:36; Stop 01/29/19 at 13:37; Status DC Cellulose (Surgicel Hemostat 4x8) 1 each STK-MED ONCE .ROUTE Last administered on 01/29/19at 12:35; Start 01/29/19 at 13:42; Stop 01/29/19 at 14:42; Status DC Cellulose (Surgicel Hemostat 4x8) 1 each STK-MED ONCE .ROUTE Last administered on 01/29/19at 12:35; Start 01/29/19 at 13:46; Stop 01/29/19 at 14:46; Status DC Ketorolac Tromethamine (Toradol For Or Only) 30 mg STK-MED ONCE INJ ; Start 01/29/19 at 14:59; Stop 01/29/19 at 15:00; Status DC Glycopyrrolate (Robinul) 1 mg STK-MED ONCE .ROUTE ; Start 01/29/19 at 15:13; Stop 01/29/19 at 15:14; Status DC Neostigmine Methylsulfate (Neostigmine Methylsulfate) 5 mg STK-MED ONCE .ROUTE ; Start 01/29/19 at 15:13; Stop 01/29/19 at 15:14; Status DC Sevoflurane (Ultane) 90 ml STK-MED ONCE IH ; Start 01/29/19 at 15:20; Stop 01/29/19 at 15:21; Status DC Fentanyl Citrate (Fentanyl 2ml Vial) 100 mcg STK-MED ONCE .ROUTE ; Start 01/29/19 at 15:32; Stop 01/29/19 at 15:33; Status DC Fentanyl Citrate (Fentanyl 2ml Vial) 100 mcg STK-MED ONCE .ROUTE ; Start 01/29/19 at 15:48; Stop 01/29/19 at 15:49; Status DC Sodium Chloride (Normal Saline Flush) 3 ml QSHIFT PRN IV AFTER MEDS AND BLOOD DRAWS; Start 01/29/19 at 16:00 Ringer's Solution 1,000 ml @ 100 mls/hr Q10H IV Last administered on 01/31/19 16:36; Start 01/29/19 at 15:46; Stop 02/01/19 at 01:42; Status DC Dextrose (Dextrose 50%-Water Syringe) 12.5 gm PRN Q15MIN PRN IV SEE COMMENTS; Start 01/29/19 at 16:00 Acetaminophen/ Hydrocodone Bitart (Lortab 5/325) 1 tab PRN Q4HRS PRN PO MILD PAIN Last administered on 01/29/19 17:28; Start 01/29/19 at 16:00; Stop 01/29/19 at 18:45; Status DC Docusate Sodium (Colace) 100 mg BID PO Last administered on 02/02/19 08:03; Start 01/29/19 at 21:00 Ondansetron HCl (Zofran) 4 mg PRN Q6HRS PRN IV NAUESA, 1ST CHOICE Last administered on 01/31/19 03:58; Start 01/29/19 at 16:00 Famotidine (Pepcid Vial) 20 mg 1X ONCE IVP Last administered on 01/29/19 16:14; Start 01/29/19 at 16:15; Stop 01/29/19 at 16:16; Status DC Pantoprazole Sodium (Protonix) 40 mg DAILYAC PO Last administered on 02/02/19 08:03; Start 01/30/19 at 07:30 Fentanyl Citrate (Fentanyl 2ml Vial) 75 mcg PRN Q2HR PRN IV SEVERE PAIN Last administered on 02/01/19 00:09; Start 01/29/19 at 18:45; Stop 02/01/19 at 00:13; Status DC Acetaminophen/ Hydrocodone Bitart (Lortab 10/325) 1 tab PRN Q6HRS PRN PO MODERATE PAIN Last administered on 01/31/19 18:44; Start 01/29/19 at 18:45; Stop 01/31/19 at 23:58; Status DC Cefazolin Sodium/ Dextrose (Ancef 2gm Premix) 2 gm STK-MED ONCE IV ; Start 01/28/19 at 11:00; Stop 01/30/19 at 07:38; Status DC Oxycodone/ Acetaminophen (Percocet 10/325) 1 tab PRN Q4HRS PRN PO severe pain Last administered on 02/02/19 08:04; Start 01/31/19 at 20:45 Fentanyl Citrate (Fentanyl 2ml Vial) 75 mcg PRN Q4HRS PRN IV SEVERE PAIN Last administered on 02/02/19 05:33; Start 02/01/19 at 00:15 Atorvastatin Calcium (Lipitor) 20 mg QHS PO Last administered on 02/01/19 20:41; Start 02/01/19 at 21:00 Buspirone HCl (Buspar) 30 mg BID PO Last administered on 02/02/19 08:03; Start 02/01/19 at 21:00 Fluoxetine HCl (PROzac) 40 mg QHS PO Last administered on 02/01/19 20:41; Start 02/01/19 at 21:00 Haloperidol (Haldol) 10 mg DAILY PO ; Start 02/02/19 at 09:00 Lisinopril (Prinivil) 2.5 mg DAILY PO Last administered on 02/02/19 08:04; Start 02/02/19 at 09:00 Metformin HCl (Glucophage) 500 mg BIDWMEALS PO Last administered on 02/02/19 08:03; Start 02/01/19 at 18:30 Mirtazapine (Remeron) 45 mg QHS PO Last administered on 02/01/19 20:41; Start 02/01/19 at 21:00 Olanzapine (ZyPREXA) 15 mg QHS PO Last administered on 02/01/19 20:41; Start 02/01/19 at 21:00 Pantoprazole Sodium (Protonix) 40 mg DAILYAC PO ; Start 02/02/19 at 07:30 Active Scripts Active Reported Buspirone Hcl 30 Mg Tablet 1 Tab PO BID Protonix (Pantoprazole Sodium) 20 Mg Tablet.dr 2 Tab PO DAILY Zantac (Ranitidine Hcl) 150 Mg Tablet 1 Tab PO HS Tums (Calcium Carbonate) 200 Mg Tab.chew 200 Mg PO TID Zyprexa (Olanzapine) 15 Mg Tablet 1 Tab PO QHS Remeron (Mirtazapine) 15 Mg Tablet 3 Tab PO QHS Lisinopril 2.5 Mg Tablet 1 Tab PO DAILY Atorvastatin Calcium 20 Mg Tablet 1 Tab PO DAILY Haloperidol 10 Mg Tablet 10 Mg PO DAILY Prozac (Fluoxetine Hcl) 40 Mg Capsule 1 Cap PO HS Metformin Hcl 500 Mg Tablet 500 Mg PO BIDWMEALS Vitals/I & O Vital Sign - Last 24 Hours 02/01/19 02/01/19 02/01/19 02/01/19 10:58 11:00 13:01 15:00 Temp 98.6 98.6 98.6 98.6 Pulse 94 96 Resp 18 20 B/P (MAP) 149/86 (107) 130/85 (100) Pulse Ox 93 95 O2 Delivery Room Air Room Air Room Air Room Air 02/01/19 02/01/19 02/01/19 02/01/19 15:00 17:18 19:00 19:12 Temp 98.6 98.6 Pulse 91 Resp 18 B/P (MAP) 136/89 (105) Pulse Ox 94 95 O2 Delivery Room Air Room Air Room Air Room Air O2 Flow Rate 2.0 02/01/19 02/01/19 02/01/19 02/01/19 19:40 21:21 23:00 23:12 Temp 101.6 101.6 Pulse 110 Resp 20 B/P (MAP) 143/79 (100) Pulse Ox 95 94 95 O2 Delivery Room Air Room Air Room Air Room Air O2 Flow Rate 2.0 2.0 02/02/19 02/02/19 02/02/19 02/02/19 01:24 03:00 03:24 04:24 Temp 98.7 98.7 Pulse 117 Resp 20 B/P (MAP) 137/87 (104) Pulse Ox 95 92 95 95 O2 Delivery Room Air Room Air Room Air O2 Flow Rate 2.0 2.0 2.0 02/02/19 02/02/19 02/02/19 02/02/19 05:33 06:03 07:00 07:45 Temp 99.4 99.4 Pulse 107 Resp 18 B/P (MAP) 153/87 (109) Pulse Ox 95 95 91 O2 Delivery Room Air Room Air Room Air Room Air O2 Flow Rate 2.0 2.0 02/02/19 02/02/19 02/02/19 08:04 08:04 09:06 Pulse 107 B/P (MAP) 153/87 O2 Delivery Room Air Room Air Intake and Output 02/01/19 02/01/19 02/02/19 14:59 22:59 06:59 Intake Total 600 ml Output Total 30 ml 1300 ml 30 ml Balance 570 ml -1300 ml -30 ml BERNARDINO COX MD February 02, 2019 09:51
[2019-02-02 11:00] VITALS: BP 141/81
--- NOTE | 2019-02-02 11:41 | PDOC ---
Subjective: Subjective: Pain is better but still 5/10 all the time. Flatus w/o stool, tolerating PO. Objective: Vital Signs: Vital Signs Date Time Temp Pulse Resp B/P (MAP) Pulse Ox O2 Delivery O2 Flow Rate FiO2 02/02/19 10:26 Room Air 02/02/19 08:04 107 153/87 02/02/19 07:00 99.4 18 91 99.4 02/02/19 06:03 2.0 Labs: Laboratory Tests Test 02/02/19 04:10 White Blood Count 17.9 x10^3/uL Red Blood Count 2.92 x10^6/uL Hemoglobin 9.2 g/dL Hematocrit 27.7 % Mean Corpuscular Volume 95 fL Mean Corpuscular Hemoglobin 32 pg Mean Corpuscular Hemoglobin Concent 33 g/dL Red Cell Distribution Width 14.8 % Platelet Count 350 x10^3/uL Neutrophils (%) (Auto) 67 % Lymphocytes (%) (Auto) 21 % Monocytes (%) (Auto) 9 % Eosinophils (%) (Auto) 2 % Basophils (%) (Auto) 1 % Neutrophils # (Auto) 12.0 x10^3uL Lymphocytes # (Auto) 3.8 x10^3/uL Monocytes # (Auto) 1.6 x10^3/uL Eosinophils # (Auto) 0.4 x10^3/uL Basophils # (Auto) 0.1 x10^3/uL Sodium Level 132 mmol/L Potassium Level 4.2 mmol/L Chloride Level 97 mmol/L Carbon Dioxide Level 29 mmol/L Anion Gap 6 Blood Urea Nitrogen 11 mg/dL Creatinine 1.0 mg/dL Estimated GFR (Cockcroft-Gault) 84.1 Glucose Level 183 mg/dL Calcium Level 8.5 mg/dL PE: GEN: NAD - sitting on edge of bed w/ guards LUNGS: CTAB HEART: RRR ABD: RUQ tenderness, drain w/ blood - seems thinner/less today NEURO/PSYCH: A & O 3 A/P: S/p cholecystectomy and CBDE Elevated LFTs - better Leukocytosis - better Anemia - stable -- Continue per surgery, will add Miralax. DARREL MUELLER February 02, 2019 11:41
[2019-02-02] MEDS ORDERED: BISACODYL 5 MG TABLET.DR. PO PRN (11:45)
--- NOTE | 2019-02-02 12:01 | PDOC ---
SURGICAL PROGRESS NOTE Subjective still with pain no emesis Vital Signs Vital Signs Date Time Temp Pulse Resp B/P (MAP) Pulse Ox O2 Delivery O2 Flow Rate FiO2 02/02/19 10:26 Room Air 02/02/19 08:04 107 153/87 02/02/19 07:00 99.4 18 91 99.4 02/02/19 06:03 2.0 I&O Intake and Output 02/02/19 06:59 Intake Total 600 ml Output Total 1360 ml Balance -760 ml Intake Oral 600 ml Output Urine Total 1300 ml Drainage Total 60 ml # Voids 3 General: Alert, Oriented X3, Cooperative, No acute distress Abdomen: Soft, Other (drain bloody, nonbilious ) Labs Laboratory Tests Test 01/31/19 16:54 02/01/19 09:36 02/02/19 04:10 Glucose (Fingerstick) 111 mg/dL (70-99) White Blood Count 18.2 x10^3/uL (4.0-11.0) 17.9 x10^3/uL (4.0-11.0) Red Blood Count 3.01 x10^6/uL (4.30-5.70) 2.92 x10^6/uL (4.30-5.70) Hemoglobin 9.5 g/dL (13.0-17.5) 9.2 g/dL (13.0-17.5) Hematocrit 28.8 % (39.0-53.0) 27.7 % (39.0-53.0) Mean Corpuscular Volume 96 fL (79-100) 95 fL (79-100) Mean Corpuscular Hemoglobin 32 pg (25-35) 32 pg (25-35) Mean Corpuscular Hemoglobin Concent 33 g/dL (31-37) 33 g/dL (31-37) Red Cell Distribution Width 15.2 % (11.5-14.5) 14.8 % (11.5-14.5) Platelet Count 291 x10^3/uL (140-400) 350 x10^3/uL (140-400) Neutrophils (%) (Auto) 55 % (31-73) 67 % (31-73) Lymphocytes (%) (Auto) 32 % (24-48) 21 % (24-48) Monocytes (%) (Auto) 9 % (0-9) 9 % (0-9) Eosinophils (%) (Auto) 3 % (0-3) 2 % (0-3) Basophils (%) (Auto) 1 % (0-3) 1 % (0-3) Neutrophils # (Auto) 10.1 x10^3uL (1.8-7.7) 12.0 x10^3uL (1.8-7.7) Lymphocytes # (Auto) 5.9 x10^3/uL (1.0-4.8) 3.8 x10^3/uL (1.0-4.8) Monocytes # (Auto) 1.6 x10^3/uL (0.0-1.1) 1.6 x10^3/uL (0.0-1.1) Eosinophils # (Auto) 0.6 x10^3/uL (0.0-0.7) 0.4 x10^3/uL (0.0-0.7) Basophils # (Auto) 0.2 x10^3/uL (0.0-0.2) 0.1 x10^3/uL (0.0-0.2) Sodium Level 136 mmol/L (136-145) 132 mmol/L (136-145) Potassium Level 3.6 mmol/L (3.5-5.1) 4.2 mmol/L (3.5-5.1) Chloride Level 98 mmol/L (98-107) 97 mmol/L (98-107) Carbon Dioxide Level 29 mmol/L (21-32) 29 mmol/L (21-32) Anion Gap 9 (6-14) 6 (6-14) Blood Urea Nitrogen 9 mg/dL (8-26) 11 mg/dL (8-26) Creatinine 1.0 mg/dL (0.7-1.3) 1.0 mg/dL (0.7-1.3) Estimated GFR (Cockcroft-Gault) 84.1 84.1 BUN/Creatinine Ratio 9 (6-20) Glucose Level 135 mg/dL (70-99) 183 mg/dL (70-99) Calcium Level 8.7 mg/dL (8.5-10.1) 8.5 mg/dL (8.5-10.1) Total Bilirubin 2.4 mg/dL (0.2-1.0) Aspartate Amino Transf (AST/SGOT) 38 U/L (15-37) Alanine Aminotransferase (ALT/SGPT) 101 U/L (16-63) Alkaline Phosphatase 254 U/L (46-116) Total Protein 7.2 g/dL (6.4-8.2) Albumin 2.2 g/dL (3.4-5.0) Albumin/Globulin Ratio 0.4 (1.0-1.7) Laboratory Tests Test 02/02/19 04:10 White Blood Count 17.9 x10^3/uL (4.0-11.0) Red Blood Count 2.92 x10^6/uL (4.30-5.70) Hemoglobin 9.2 g/dL (13.0-17.5) Hematocrit 27.7 % (39.0-53.0) Mean Corpuscular Volume 95 fL (79-100) Mean Corpuscular Hemoglobin 32 pg (25-35) Mean Corpuscular Hemoglobin Concent 33 g/dL (31-37) Red Cell Distribution Width 14.8 % (11.5-14.5) Platelet Count 350 x10^3/uL (140-400) Neutrophils (%) (Auto) 67 % (31-73) Lymphocytes (%) (Auto) 21 % (24-48) Monocytes (%) (Auto) 9 % (0-9) Eosinophils (%) (Auto) 2 % (0-3) Basophils (%) (Auto) 1 % (0-3) Neutrophils # (Auto) 12.0 x10^3uL (1.8-7.7) Lymphocytes # (Auto) 3.8 x10^3/uL (1.0-4.8) Monocytes # (Auto) 1.6 x10^3/uL (0.0-1.1) Eosinophils # (Auto) 0.4 x10^3/uL (0.0-0.7) Basophils # (Auto) 0.1 x10^3/uL (0.0-0.2) Sodium Level 132 mmol/L (136-145) Potassium Level 4.2 mmol/L (3.5-5.1) Chloride Level 97 mmol/L (98-107) Carbon Dioxide Level 29 mmol/L (21-32) Anion Gap 6 (6-14) Blood Urea Nitrogen 11 mg/dL (8-26) Creatinine 1.0 mg/dL (0.7-1.3) Estimated GFR (Cockcroft-Gault) 84.1 Glucose Level 183 mg/dL (70-99) Calcium Level 8.5 mg/dL (8.5-10.1) Problem List Problems Medical Problems: (1) Common bile duct dilatation Status: Acute (2) Jaundice Status: Acute (3) Morbid obesity Status: Acute Assessment/Plan s/p bonita, CBDE noted tmax 101.6(none since last night), wbc down to 17 continue care SCAR HOUSE APRN February 02, 2019 12:01
[2019-02-02] MEDS: PIPERACILLIN/TAZOBACTAM 3.375 GM in IV NORMAL SALINE 50ML 50 ML IV SCH ×2 (14:16→19:30)
[2019-02-02] MEDS: ENOXAPARIN 40 MG/0.4 ML SYRINGE. SQ SCH ×2 (14:16→21:05)
[2019-02-02 15:00] VITALS: BP 141/79
--- NOTE | 2019-02-02 15:38 | RAD ---
CT of the abdomen and pelvis without contrast. 02/02/2019 3:10 PM Indication: Sepsis. Unidentified source. Comparison Study: None. Technique: Multidetector CT imaging of the abdomen pelvis is obtained without administration of contrast. Findings: Mild atelectasis involving the bilateral lung bases noted. There is a complex gas and fluid collection in the gallbladder fossa. The appearance suggests a component of hemorrhage. Persistent gas could reflect postoperative change or hemostatic surgical product. Findings are not unexpected in the postoperative setting. There is an adjacent right upper quadrant surgical drainage catheter. Sterility of this collection cannot be assessed by CT. A small amount of blood products are noted in the right paracolic gutter and pelvis. No other pneumoperitoneum is identified. Remaining solid viscera of the abdomen demonstrate a grossly unremarkable noncontrast enhanced appearance. Bladder is unremarkable in appearance. No acute osseous lesions are seen. Impression: Recent cholecystectomy with small amount of blood products and gas noted in the gallbladder fossa as described. Small amount of blood products in the paracolic gutter and pelvis, also noted. CT DOSING PQRS STATEMENT: One or more of the following individualized dose reduction techniques were utilized for this examination: 1. Automated exposure control 2. Adjustment of the mA and/or kV according to patient size 3. Use of iterative reconstruction technique Electronically signed by: Calin Love MD (02/02/2019 3:35 PM) [id number]
--- NOTE | 2019-02-02 15:48 | RAD ---
AP chest, 02/02/2019: HISTORY: Postop fever The patient is rotated to the right. The heart is at the upper limits of normal in size. The pulmonary vascularity is normal. There is mild discoid atelectasis or scarring in the right parahilar region and left base. The lungs are otherwise clear. There is no evidence of pleural fluid. IMPRESSION: Mild bilateral discoid atelectasis and/or scarring. Electronically signed by: Guille Shaw MD (02/02/2019 3:45 PM) [facility]
--- NOTE | 2019-02-02 17:30 | NUR ---
Pt threw up forcefully shortly after eating dinner. VIKY dressing saturated and soaked through the gown. Zofran administered, dressing and gown change. VIKY output increased after this episode, in approximately twenty minutes there was an output of 150 cc. Education provided to Pt on how to empty VIKY, Pt demonstrated and stated he will check his VIKY regularly and empty it if needed and then notify nursing staff to discard and record output.
[2019-02-02] MEDS: ONDANSETRON PF 4 MG/2 ML VIAL. IV PRN (17:43)
[2019-02-02 19:58] VITALS: BP 134/77
[2019-02-02] MEDS: ATORVASTATIN CALCIUM 20 MG TABLET PO SCH (21:00)
[2019-02-02] MEDS: OLANZapine 5 MG TABLET PO SCH (21:01)
[2019-02-02] MEDS: POLYETHYLENE GLYCOL 3350 17 GM PACKET. PO SCH (21:01)
[2019-02-02] MEDS: MIRTAZAPINE 15 MG TABLET PO SCH (21:02)
[2019-02-02] MEDS: FLUoxetine HCL 20 MG CAPSULE PO SCH (21:02)
[2019-02-02 23:01] VITALS: BP 141/86
[2019-02-03] MEDS: oxyCODONE/APAP 10/325 1 TAB TABLET PO PRN ×6 (01:11→22:40)
[2019-02-03 03:00] VITALS: BP 141/96
[2019-02-03] MEDS: fentaNYL PF VIAL 100 MCG/2 ML VIAL IV PRN ×5 (03:19→20:31)
[2019-02-03] MEDS: PIPERACILLIN/TAZOBACTAM 3.375 GM in IV NORMAL SALINE 50ML 50 ML IV SCH ×5 (06:09→18:26)
[2019-02-03 07:00] VITALS: BP 140/72
[2019-02-03 07:11] LABS: BASO # 0.1 x10^3/uL (0.0-0.2); BASO % 1 % (0-3); EOS # 0.7 x10^3/uL (0.0-0.7); EOS % 4 % (0-3); HEMATOCRIT 25.7 % (39.0-53.0); HEMOGLOBIN 8.4 g/dL (13.0-17.5); LYMPH # 3.7 x10^3/uL (1.0-4.8); LYMPH % 24 % (24-48); MEAN CORPUSCULAR HEMOGLOBIN 31 pg (25-35); MEAN CORPUSCULAR HGB CONC 33 g/dL (31-37); MEAN CORPUSCULAR VOLUME 96 fL (79-100); MONO # 1.5 x10^3/uL (0.0-1.1); MONO % 10 % (0-9); NEUT # 9.7 x10^3uL (1.8-7.7); NEUT % 61 % (31-73); PLATELET COUNT 392 x10^3/uL (140-400); RED BLOOD COUNT 2.68 x10^6/uL (4.30-5.70); WHITE BLOOD COUNT 15.8 x10^3/uL (4.0-11.0)
[2019-02-03 07:28] LABS: ALBUMIN 1.9 g/dL (3.4-5.0); ALBUMIN/GLOBULIN RATIO 0.4 (1.0-1.7); CALCIUM 8.1 mg/dL (8.5-10.1); CREATININE 1.2 mg/dL (0.7-1.3); GFR 68.1; POTASSIUM 3.8 mmol/L (3.5-5.1); TOTAL BILIRUBIN 1.9 mg/dL (0.2-1.0)
[2019-02-03] MEDS: PANTOPRAZOLE 40 MG TABLET.DR. PO SCH ×2 (07:30→07:40)
[2019-02-03 08:11] VITALS: BP 140/72
[2019-02-03] MEDS: POLYETHYLENE GLYCOL 3350 17 GM PACKET. PO SCH ×2 (08:46→21:06)
[2019-02-03] MEDS: ENOXAPARIN 40 MG/0.4 ML SYRINGE. SQ SCH ×2 (08:46→21:09)
[2019-02-03] MEDS: DOCUSATE SODIUM 100 MG CAPSULE. PO SCH ×2 (08:46→21:08)
[2019-02-03] MEDS: HALOPERIDOL 5 MG TABLET. PO SCH (08:46)
[2019-02-03] MEDS: busPIRone 10 MG TABLET. PO SCH ×2 (08:46→21:07)
[2019-02-03] MEDS: metFORMIN 500 MG TABLET PO SCH ×2 (08:46→16:37)
[2019-02-03] MEDS: LISINOPRIL 5 MG TABLET. PO SCH (08:47)
--- NOTE | 2019-02-03 09:50 | PDOC ---
SURGICAL PROGRESS NOTE Subjective had vomiting episode last night drain had increased output Vital Signs Vital Signs Date Time Temp Pulse Resp B/P (MAP) Pulse Ox O2 Delivery O2 Flow Rate FiO2 02/03/19 09:22 Room Air 02/03/19 08:47 100 140/72 02/03/19 08:11 98.9 18 95 98.9 I&O Intake and Output 02/03/19 07:00 Intake Total 960 ml Output Total 1290 ml Balance -330 ml Intake Oral 960 ml Output Urine Total 700 ml Gastric Drainage Total 170 ml Drainage Total 420 ml # Voids 2 General: Alert, Oriented X3, Cooperative, No acute distress Abdomen: Soft, Other (drain bilious now ) Labs Laboratory Tests Test 02/02/19 04:10 02/02/19 15:00 02/03/19 06:25 02/03/19 07:31 White Blood Count 17.9 x10^3/uL (4.0-11.0) 15.8 x10^3/uL (4.0-11.0) Red Blood Count 2.92 x10^6/uL (4.30-5.70) 2.68 x10^6/uL (4.30-5.70) Hemoglobin 9.2 g/dL (13.0-17.5) 8.4 g/dL (13.0-17.5) Hematocrit 27.7 % (39.0-53.0) 25.7 % (39.0-53.0) Mean Corpuscular Volume 95 fL (79-100) 96 fL (79-100) Mean Corpuscular Hemoglobin 32 pg (25-35) 31 pg (25-35) Mean Corpuscular Hemoglobin Concent 33 g/dL (31-37) 33 g/dL (31-37) Red Cell Distribution Width 14.8 % (11.5-14.5) 15.0 % (11.5-14.5) Platelet Count 350 x10^3/uL (140-400) 392 x10^3/uL (140-400) Neutrophils (%) (Auto) 67 % (31-73) 61 % (31-73) Lymphocytes (%) (Auto) 21 % (24-48) 24 % (24-48) Monocytes (%) (Auto) 9 % (0-9) 10 % (0-9) Eosinophils (%) (Auto) 2 % (0-3) 4 % (0-3) Basophils (%) (Auto) 1 % (0-3) 1 % (0-3) Neutrophils # (Auto) 12.0 x10^3uL (1.8-7.7) 9.7 x10^3uL (1.8-7.7) Lymphocytes # (Auto) 3.8 x10^3/uL (1.0-4.8) 3.7 x10^3/uL (1.0-4.8) Monocytes # (Auto) 1.6 x10^3/uL (0.0-1.1) 1.5 x10^3/uL (0.0-1.1) Eosinophils # (Auto) 0.4 x10^3/uL (0.0-0.7) 0.7 x10^3/uL (0.0-0.7) Basophils # (Auto) 0.1 x10^3/uL (0.0-0.2) 0.1 x10^3/uL (0.0-0.2) Sodium Level 132 mmol/L (136-145) 135 mmol/L (136-145) Potassium Level 4.2 mmol/L (3.5-5.1) 3.8 mmol/L (3.5-5.1) Chloride Level 97 mmol/L (98-107) 96 mmol/L (98-107) Carbon Dioxide Level 29 mmol/L (21-32) 33 mmol/L (21-32) Anion Gap 6 (6-14) 6 (6-14) Blood Urea Nitrogen 11 mg/dL (8-26) 10 mg/dL (8-26) Creatinine 1.0 mg/dL (0.7-1.3) 1.2 mg/dL (0.7-1.3) Estimated GFR (Cockcroft-Gault) 84.1 68.1 Glucose Level 183 mg/dL (70-99) 148 mg/dL (70-99) Calcium Level 8.5 mg/dL (8.5-10.1) 8.1 mg/dL (8.5-10.1) Lactic Acid Level 0.9 mmol/L (0.4-2.0) Procalcitonin 0.45 ng/mL (0.00-0.10) BUN/Creatinine Ratio 8 (6-20) Total Bilirubin 1.9 mg/dL (0.2-1.0) Aspartate Amino Transf (AST/SGOT) 28 U/L (15-37) Alanine Aminotransferase (ALT/SGPT) 60 U/L (16-63) Alkaline Phosphatase 231 U/L (46-116) Total Protein 7.0 g/dL (6.4-8.2) Albumin 1.9 g/dL (3.4-5.0) Albumin/Globulin Ratio 0.4 (1.0-1.7) Glucose (Fingerstick) 136 mg/dL (70-99) Laboratory Tests Test 02/02/19 15:00 02/03/19 06:25 02/03/19 07:31 Lactic Acid Level 0.9 mmol/L (0.4-2.0) Procalcitonin 0.45 ng/mL (0.00-0.10) White Blood Count 15.8 x10^3/uL (4.0-11.0) Red Blood Count 2.68 x10^6/uL (4.30-5.70) Hemoglobin 8.4 g/dL (13.0-17.5) Hematocrit 25.7 % (39.0-53.0) Mean Corpuscular Volume 96 fL (79-100) Mean Corpuscular Hemoglobin 31 pg (25-35) Mean Corpuscular Hemoglobin Concent 33 g/dL (31-37) Red Cell Distribution Width 15.0 % (11.5-14.5) Platelet Count 392 x10^3/uL (140-400) Neutrophils (%) (Auto) 61 % (31-73) Lymphocytes (%) (Auto) 24 % (24-48) Monocytes (%) (Auto) 10 % (0-9) Eosinophils (%) (Auto) 4 % (0-3) Basophils (%) (Auto) 1 % (0-3) Neutrophils # (Auto) 9.7 x10^3uL (1.8-7.7) Lymphocytes # (Auto) 3.7 x10^3/uL (1.0-4.8) Monocytes # (Auto) 1.5 x10^3/uL (0.0-1.1) Eosinophils # (Auto) 0.7 x10^3/uL (0.0-0.7) Basophils # (Auto) 0.1 x10^3/uL (0.0-0.2) Sodium Level 135 mmol/L (136-145) Potassium Level 3.8 mmol/L (3.5-5.1) Chloride Level 96 mmol/L (98-107) Carbon Dioxide Level 33 mmol/L (21-32) Anion Gap 6 (6-14) Blood Urea Nitrogen 10 mg/dL (8-26) Creatinine 1.2 mg/dL (0.7-1.3) Estimated GFR (Cockcroft-Gault) 68.1 BUN/Creatinine Ratio 8 (6-20) Glucose Level 148 mg/dL (70-99) Calcium Level 8.1 mg/dL (8.5-10.1) Total Bilirubin 1.9 mg/dL (0.2-1.0) Aspartate Amino Transf (AST/SGOT) 28 U/L (15-37) Alanine Aminotransferase (ALT/SGPT) 60 U/L (16-63) Alkaline Phosphatase 231 U/L (46-116) Total Protein 7.0 g/dL (6.4-8.2) Albumin 1.9 g/dL (3.4-5.0) Albumin/Globulin Ratio 0.4 (1.0-1.7) Glucose (Fingerstick) 136 mg/dL (70-99) Problem List Problems Medical Problems: (1) Common bile duct dilatation Status: Acute (2) Jaundice Status: Acute (3) Morbid obesity Status: Acute Assessment/Plan drain now bilious will check SCAR LUNA LANDFILL ATTENDANT February 03, 2019 09:50
--- NOTE | 2019-02-03 10:31 | PDOC ---
PROGRESS NOTES History of Present Illness History of Present Illness Assessment/Plan Jaundice with transaminitis and hyperbilirubinemia some variable appearance of intraluminal filling defects in the common bile duct although confidently seen on last image Round filling defect in the distal common bile duct is likely choledocholithiasis rather than mass,. There is biliary ductal dilatation. cholelithiasis. T2 hyperintense liver lesions are more likely due to hemangiomas or complex cysts with debris, persistent pain, mod severe, CONTINUES normocytic anemia FEVER OVERNIGHT 101.6 F 02/02 EMESIS PM OF 02/02 Plan HIDA SCAN admitted general surgery and GI following d/w dr aj in [facility], abdominal ultrasound reviewed DVT prophylaxis full code home meds IV fluids when necessary Zofran when necessary prn narcotics prognosis guarded FOLLOW LFT'S, CBC, Surgery plans to check cbc in am, cont zosyn, add zyvox 42 MIN PT EXAM, chart review, > 50% of time spent with exam, chart review, pt care coordination Vitals Vitals Vital Signs Date Time Temp Pulse Resp B/P (MAP) Pulse Ox O2 Delivery O2 Flow Rate FiO2 02/03/19 09:22 Room Air 02/03/19 08:47 100 140/72 02/03/19 08:11 98.9 18 95 98.9 Physical Exam General: Alert, Oriented X3, Cooperative, No acute distress Heart: Regular rate, Normal S1, Normal S2, No murmurs Lungs: Clear Abdomen: Soft, Other (drain bilious now ) Extremities: No clubbing, No cyanosis Skin: Other (jaundice) Labs LABS Laboratory Tests Test 02/02/19 15:00 02/03/19 06:25 02/03/19 07:31 Lactic Acid Level 0.9 mmol/L (0.4-2.0) Procalcitonin 0.45 ng/mL (0.00-0.10) White Blood Count 15.8 x10^3/uL (4.0-11.0) Red Blood Count 2.68 x10^6/uL (4.30-5.70) Hemoglobin 8.4 g/dL (13.0-17.5) Hematocrit 25.7 % (39.0-53.0) Mean Corpuscular Volume 96 fL (79-100) Mean Corpuscular Hemoglobin 31 pg (25-35) Mean Corpuscular Hemoglobin Concent 33 g/dL (31-37) Red Cell Distribution Width 15.0 % (11.5-14.5) Platelet Count 392 x10^3/uL (140-400) Neutrophils (%) (Auto) 61 % (31-73) Lymphocytes (%) (Auto) 24 % (24-48) Monocytes (%) (Auto) 10 % (0-9) Eosinophils (%) (Auto) 4 % (0-3) Basophils (%) (Auto) 1 % (0-3) Neutrophils # (Auto) 9.7 x10^3uL (1.8-7.7) Lymphocytes # (Auto) 3.7 x10^3/uL (1.0-4.8) Monocytes # (Auto) 1.5 x10^3/uL (0.0-1.1) Eosinophils # (Auto) 0.7 x10^3/uL (0.0-0.7) Basophils # (Auto) 0.1 x10^3/uL (0.0-0.2) Sodium Level 135 mmol/L (136-145) Potassium Level 3.8 mmol/L (3.5-5.1) Chloride Level 96 mmol/L (98-107) Carbon Dioxide Level 33 mmol/L (21-32) Anion Gap 6 (6-14) Blood Urea Nitrogen 10 mg/dL (8-26) Creatinine 1.2 mg/dL (0.7-1.3) Estimated GFR (Cockcroft-Gault) 68.1 BUN/Creatinine Ratio 8 (6-20) Glucose Level 148 mg/dL (70-99) Calcium Level 8.1 mg/dL (8.5-10.1) Total Bilirubin 1.9 mg/dL (0.2-1.0) Aspartate Amino Transf (AST/SGOT) 28 U/L (15-37) Alanine Aminotransferase (ALT/SGPT) 60 U/L (16-63) Alkaline Phosphatase 231 U/L (46-116) Total Protein 7.0 g/dL (6.4-8.2) Albumin 1.9 g/dL (3.4-5.0) Albumin/Globulin Ratio 0.4 (1.0-1.7) Glucose (Fingerstick) 136 mg/dL (70-99) Assessment and Plan Assessmemt and Plan Problems Medical Problems: (1) Common bile duct dilatation Status: Acute (2) Jaundice Status: Acute (3) Morbid obesity Status: Acute Comment Review of Relevant I have reviewed the following items gustavo (where applicable) has been applied. Labs Laboratory Tests Test 02/02/19 04:10 02/02/19 15:00 02/03/19 06:25 02/03/19 07:31 White Blood Count 17.9 x10^3/uL (4.0-11.0) 15.8 x10^3/uL (4.0-11.0) Red Blood Count 2.92 x10^6/uL (4.30-5.70) 2.68 x10^6/uL (4.30-5.70) Hemoglobin 9.2 g/dL (13.0-17.5) 8.4 g/dL (13.0-17.5) Hematocrit 27.7 % (39.0-53.0) 25.7 % (39.0-53.0) Mean Corpuscular Volume 95 fL (79-100) 96 fL (79-100) Mean Corpuscular Hemoglobin 32 pg (25-35) 31 pg (25-35) Mean Corpuscular Hemoglobin Concent 33 g/dL (31-37) 33 g/dL (31-37) Red Cell Distribution Width 14.8 % (11.5-14.5) 15.0 % (11.5-14.5) Platelet Count 350 x10^3/uL (140-400) 392 x10^3/uL (140-400) Neutrophils (%) (Auto) 67 % (31-73) 61 % (31-73) Lymphocytes (%) (Auto) 21 % (24-48) 24 % (24-48) Monocytes (%) (Auto) 9 % (0-9) 10 % (0-9) Eosinophils (%) (Auto) 2 % (0-3) 4 % (0-3) Basophils (%) (Auto) 1 % (0-3) 1 % (0-3) Neutrophils # (Auto) 12.0 x10^3uL (1.8-7.7) 9.7 x10^3uL (1.8-7.7) Lymphocytes # (Auto) 3.8 x10^3/uL (1.0-4.8) 3.7 x10^3/uL (1.0-4.8) Monocytes # (Auto) 1.6 x10^3/uL (0.0-1.1) 1.5 x10^3/uL (0.0-1.1) Eosinophils # (Auto) 0.4 x10^3/uL (0.0-0.7) 0.7 x10^3/uL (0.0-0.7) Basophils # (Auto) 0.1 x10^3/uL (0.0-0.2) 0.1 x10^3/uL (0.0-0.2) Sodium Level 132 mmol/L (136-145) 135 mmol/L (136-145) Potassium Level 4.2 mmol/L (3.5-5.1) 3.8 mmol/L (3.5-5.1) Chloride Level 97 mmol/L (98-107) 96 mmol/L (98-107) Carbon Dioxide Level 29 mmol/L (21-32) 33 mmol/L (21-32) Anion Gap 6 (6-14) 6 (6-14) Blood Urea Nitrogen 11 mg/dL (8-26) 10 mg/dL (8-26) Creatinine 1.0 mg/dL (0.7-1.3) 1.2 mg/dL (0.7-1.3) Estimated GFR (Cockcroft-Gault) 84.1 68.1 Glucose Level 183 mg/dL (70-99) 148 mg/dL (70-99) Calcium Level 8.5 mg/dL (8.5-10.1) 8.1 mg/dL (8.5-10.1) Lactic Acid Level 0.9 mmol/L (0.4-2.0) Procalcitonin 0.45 ng/mL (0.00-0.10) BUN/Creatinine Ratio 8 (6-20) Total Bilirubin 1.9 mg/dL (0.2-1.0) Aspartate Amino Transf (AST/SGOT) 28 U/L (15-37) Alanine Aminotransferase (ALT/SGPT) 60 U/L (16-63) Alkaline Phosphatase 231 U/L (46-116) Total Protein 7.0 g/dL (6.4-8.2) Albumin 1.9 g/dL (3.4-5.0) Albumin/Globulin Ratio 0.4 (1.0-1.7) Glucose (Fingerstick) 136 mg/dL (70-99) Laboratory Tests Test 02/02/19 15:00 02/03/19 06:25 02/03/19 07:31 Lactic Acid Level 0.9 mmol/L (0.4-2.0) Procalcitonin 0.45 ng/mL (0.00-0.10) White Blood Count 15.8 x10^3/uL (4.0-11.0) Red Blood Count 2.68 x10^6/uL (4.30-5.70) Hemoglobin 8.4 g/dL (13.0-17.5) Hematocrit 25.7 % (39.0-53.0) Mean Corpuscular Volume 96 fL (79-100) Mean Corpuscular Hemoglobin 31 pg (25-35) Mean Corpuscular Hemoglobin Concent 33 g/dL (31-37) Red Cell Distribution Width 15.0 % (11.5-14.5) Platelet Count 392 x10^3/uL (140-400) Neutrophils (%) (Auto) 61 % (31-73) Lymphocytes (%) (Auto) 24 % (24-48) Monocytes (%) (Auto) 10 % (0-9) Eosinophils (%) (Auto) 4 % (0-3) Basophils (%) (Auto) 1 % (0-3) Neutrophils # (Auto) 9.7 x10^3uL (1.8-7.7) Lymphocytes # (Auto) 3.7 x10^3/uL (1.0-4.8) Monocytes # (Auto) 1.5 x10^3/uL (0.0-1.1) Eosinophils # (Auto) 0.7 x10^3/uL (0.0-0.7) Basophils # (Auto) 0.1 x10^3/uL (0.0-0.2) Sodium Level 135 mmol/L (136-145) Potassium Level 3.8 mmol/L (3.5-5.1) Chloride Level 96 mmol/L (98-107) Carbon Dioxide Level 33 mmol/L (21-32) Anion Gap 6 (6-14) Blood Urea Nitrogen 10 mg/dL (8-26) Creatinine 1.2 mg/dL (0.7-1.3) Estimated GFR (Cockcroft-Gault) 68.1 BUN/Creatinine Ratio 8 (6-20) Glucose Level 148 mg/dL (70-99) Calcium Level 8.1 mg/dL (8.5-10.1) Total Bilirubin 1.9 mg/dL (0.2-1.0) Aspartate Amino Transf (AST/SGOT) 28 U/L (15-37) Alanine Aminotransferase (ALT/SGPT) 60 U/L (16-63) Alkaline Phosphatase 231 U/L (46-116) Total Protein 7.0 g/dL (6.4-8.2) Albumin 1.9 g/dL (3.4-5.0) Albumin/Globulin Ratio 0.4 (1.0-1.7) Glucose (Fingerstick) 136 mg/dL (70-99) Medications Current Medications Iohexol (Omnipaque 240 Mg/ml) 30 ml 1X ONCE PO Last administered on 01/27/19at 19:15; Start 01/27/19 at 19:15; Stop 01/27/19 at 19:16; Status DC Iohexol (Omnipaque 300 Mg/ml) 75 ml 1X ONCE IV Last administered on 01/27/19at 20:10; Start 01/27/19 at 19:15; Stop 01/27/19 at 19:16; Status DC Info (CONTRAST GIVEN -- Rx MONITORING) 1 each PRN DAILY PRN MC SEE COMMENTS; Start 01/27/19 at 19:30; Stop 01/29/19 at 19:29; Status DC Ketorolac Tromethamine (Toradol 30mg Vial) 30 mg 1X ONCE IV Last administered on 01/27/19at 22:02; Start 01/27/19 at 21:30; Stop 01/27/19 at 21:31; Status DC Sodium Chloride 1,000 ml @ 1,000 mls/hr 1X ONCE IV Last administered on 01/27/19at 21:58; Start 01/27/19 at 21:30; Stop 01/27/19 at 22:29; Status DC Sodium Chloride 1,000 ml @ 150 mls/hr Q6H40M IV Last administered on 01/28/19at 12:34; Start 01/27/19 at 22:00; Stop 01/28/19 at 21:59; Status DC Morphine Sulfate (Morphine Sulfate) 2 mg PRN Q2HR PRN IV PAIN; Start 01/28/19 at 08:15; Stop 01/28/19 at 08:23; Status DC Ketorolac Tromethamine (Toradol 30mg Vial) 20 mg PRN Q6HRS PRN IV MILD PAIN Last administered on 02/01/19at 16:29; Start 01/28/19 at 08:15; Stop 02/02/19 at 08:14; Status DC Fentanyl Citrate (Fentanyl 2ml Vial) 50 mcg PRN Q2HR PRN IV MODERATE PAIN, SEVERE PAIN Last administered on 01/29/19at 17:28; Start 01/28/19 at 08:30; Stop 01/29/19 at 18:44; Status DC Cefazolin Sodium/ Dextrose 50 ml @ 100 mls/hr 1X PREOP IV ; Start 01/28/19 at 15:45; Stop 01/29/19 at 10:14; Status DC Fentanyl Citrate (Fentanyl 2ml Vial) 25 mcg PRN Q5MIN PRN IV MILD PAIN; Start 01/29/19 at 07:00; Stop 01/29/19 at 19:00; Status DC Fentanyl Citrate (Fentanyl 2ml Vial) 50 mcg PRN Q5MIN PRN IV MODERATE TO SEVERE PAIN Last administered on 01/29/19at 16:32; Start 01/29/19 at 07:00; Stop 01/29/19 at 19:00; Status DC Ringer's Solution 1,000 ml @ 30 mls/hr Q24H IV Last administered on 01/29/19at 09:49; Start 01/29/19 at 07:00; Stop 01/29/19 at 18:59; Status DC Prochlorperazine Edisylate (Compazine) 5 mg PACU PRN PRN IV NAUSEA, MRX1; St art 01/29/19 at 07:00; Stop 01/29/19 at 19:00; Status DC Dextrose (Dextrose 50%-Water Syringe) 12.5 gm PRN Q15MIN PRN IV SEE COMMENTS; Start 01/28/19 at 19:45; Stop 01/30/19 at 13:49; Status DC Bupivacaine HCl/ Epinephrine Bitart (Sensorcain-Mpf Epi 0.5%-1:[id number]) 30 ml STK-MED ONCE .ROUTE Last administered on 01/29/19at 12:35; Start 01/29/19 at 07:14; Stop 01/29/19 at 08:15; Status DC Cellulose (Surgicel Hemostat 2x3) 1 each STK-MED ONCE .ROUTE Last administered on 01/29/19at 12:35; Start 01/29/19 at 07:14; Stop 01/29/19 at 08:15; Status DC Heparin Sodium (Porcine) (Heparin Sodium) 10,000 unit STK-MED ONCE .ROUTE Last administered on 01/29/19at 12:35; Start 01/29/19 at 07:14; Stop 01/29/19 at 08:15; Status DC Iohexol (Omnipaque 300 Mg/ml) 50 ml STK-MED ONCE .ROUTE Last administered on 01/29/19at 12:35; Start 01/29/19 at 07:14; Stop 01/29/19 at 08:16; Status DC Bisacodyl (Dulcolax Supp) 10 mg STK-MED ONCE .ROUTE Last administered on 01/29/19at 12:35; Start 01/29/19 at 07:15; Stop 01/29/19 at 08:16; Status DC Cefazolin Sodium/ Dextrose 50 ml @ 100 mls/hr 1X PREOP IV ; Start 01/29/19 at 10:15; Stop 01/29/19 at 18:56; Status DC Ondansetron HCl (Zofran) 4 mg STK-MED ONCE .ROUTE ; Start 01/29/19 at 11:34; Stop 01/29/19 at 11:35; Status DC Propofol 20 ml @ As Directed STK-MED ONCE IV ; Start 01/29/19 at 11:34; Stop 01/29/19 at 11:35; Status DC Lidocaine HCl (Lidocaine Pf 2% Vial) 5 ml STK-MED ONCE .ROUTE ; Start 01/29/19 at 11:34; Stop 01/29/19 at 11:35; Status DC Fentanyl Citrate (Fentanyl 2ml Vial) 100 mcg STK-MED ONCE .ROUTE ; Start 01/29/19 at 11:34; Stop 01/29/19 at 11:35; Status DC Dexamethasone Sodium Phosphate (Decadron) 4 mg STK-MED ONCE .ROUTE ; Start 01/29/19 at 11:35; Stop 01/29/19 at 11:36; Status DC Rocuronium [place] (Zemuron) 50 mg STK-MED ONCE .ROUTE ; Start 01/29/19 at 11:35; Stop 01/29/19 at 11:36; Status DC Succinylcholine Chloride (Anectine) 200 mg STK-MED ONCE .ROUTE ; Start 01/29/19 at 11:54; Stop 01/29/19 at 11:55; Status DC Cefazolin Sodium 100 ml @ As Directed STK-MED ONCE IV ; Start 01/29/19 at 12:06; Stop 01/29/19 at 12:07; Status DC Cefazolin Sodium 50 ml @ As Directed STK-MED ONCE IV ; Start 01/29/19 at 12:07; Stop 01/29/19 at 12:08; Status DC Cefazolin Sodium 3 gm/Dextrose 100 ml @ 200 mls/hr 1X ONCE IV Last administ ered on 01/29/19at 12:09; Start 01/29/19 at 13:00; Stop 01/29/19 at 13:29; Status DC Glycopyrrolate (Robinul) 1 mg STK-MED ONCE .ROUTE ; Start 01/29/19 at 12:57; Stop 01/29/19 at 12:58; Status DC Neostigmine Methylsulfate (Neostigmine Methylsulfate) 5 mg STK-MED ONCE .ROUTE ; Start 01/29/19 at 12:58; Stop 01/29/19 at 12:59; Status DC Rocuronium [place] (Zemuron) 50 mg STK-MED ONCE .ROUTE ; Start 01/29/19 at 13:07; Stop 01/29/19 at 13:08; Status DC Fentanyl Citrate (Fentanyl 2ml Vial) 100 mcg STK-MED ONCE .ROUTE ; Start 01/29/19 at 13:10; Stop 01/29/19 at 13:11; Status DC Iohexol (Omnipaque 300 Mg/ml) 50 ml STK-MED ONCE .ROUTE Last administered on 01/29/19at 12:35; Start 01/29/19 at 12:36; Stop 01/29/19 at 13:37; Status DC Cellulose (Surgicel Hemostat 4x8) 1 each STK-MED ONCE .ROUTE Last administered on 01/29/19at 12:35; Start 01/29/19 at 13:42; Stop 01/29/19 at 14:42; Status DC Cellulose (Surgicel Hemostat 4x8) 1 each STK-MED ONCE .ROUTE Last administered on 01/29/19at 12:35; Start 01/29/19 at 13:46; Stop 01/29/19 at 14:46; Status DC Ketorolac Tromethamine (Toradol For Or Only) 30 mg STK-MED ONCE INJ ; Start 01/29/19 at 14:59; Stop 01/29/19 at 15:00; Status DC Glycopyrrolate (Robinul) 1 mg STK-MED ONCE .ROUTE ; Start 01/29/19 at 15:13; Stop 01/29/19 at 15:14; Status DC Neostigmine Methylsulfate (Neostigmine Methylsulfate) 5 mg STK-MED ONCE .ROUTE ; Start 01/29/19 at 15:13; Stop 01/29/19 at 15:14; Status DC Sevoflurane (Ultane) 90 ml STK-MED ONCE IH ; Start 01/29/19 at 15:20; Stop 01/29/19 at 15:21; Status DC Fentanyl Citrate (Fentanyl 2ml Vial) 100 mcg STK-MED ONCE .ROUTE ; Start 01/29/19 at 15:32; Stop 01/29/19 at 15:33; Status DC Fentanyl Citrate (Fentanyl 2ml Vial) 100 mcg STK-MED ONCE .ROUTE ; Start 01/29/19 at 15:48; Stop 01/29/19 at 15:49; Status DC Sodium Chloride (Normal Saline Flush) 3 ml QSHIFT PRN IV AFTER MEDS AND BLOOD DRAWS; Start 01/29/19 at 16:00 Ringer's Solution 1,000 ml @ 100 mls/hr Q10H IV Last administered on 01/31/19at 16:36; Start 01/29/19 at 15:46; Stop 02/01/19 at 01:42; Status DC Dextrose (Dextrose 50%-Water Syringe) 12.5 gm PRN Q15MIN PRN IV SEE COMMENTS; Start 01/29/19 at 16:00 Acetaminophen/ Hydrocodone Bitart (Lortab 5/325) 1 tab PRN Q4HRS PRN PO MILD PAIN Last administered on 01/29/19 17:28; Start 01/29/19 at 16:00; Stop 01/29/19 at 18:45; Status DC Docusate Sodium (Colace) 100 mg BID PO Last administered on 02/03/19 08:46; Start 01/29/19 at 21:00 Ondansetron HCl (Zofran) 4 mg PRN Q6HRS PRN IV NAUESA, 1ST CHOICE Last administered on 02/02/19 17:43; Start 01/29/19 at 16:00 Famotidine (Pepcid Vial) 20 mg 1X ONCE IVP Last administered on 01/29/19 16:14; Start 01/29/19 at 16:15; Stop 01/29/19 at 16:16; Status DC Pantoprazole Sodium (Protonix) 40 mg DAILYAC PO Last administered on 02/03/19 07:40; Start 01/30/19 at 07:30 Fentanyl Citrate (Fentanyl 2ml Vial) 75 mcg PRN Q2HR PRN IV SEVERE PAIN Last administered on 02/01/19 00:09; Start 01/29/19 at 18:45; Stop 02/01/19 at 00:13; Status DC Acetaminophen/ Hydrocodone Bitart (Lortab 10/325) 1 tab PRN Q6HRS PRN PO MODERATE PAIN Last administered on 01/31/19at 18:44; Start 01/29/19 at 18:45; Stop 01/31/19 at 23:58; Status DC Cefazolin Sodium/ Dextrose (Ancef 2gm Premix) 2 gm STK-MED ONCE IV ; Start 01/28/19 at 11:00; Stop 01/30/19 at 07:38; Status DC Oxycodone/ Acetaminophen (Percocet 10/325) 1 tab PRN Q4HRS PRN PO severe pain Last administered on 02/03/19 09:22; Start 01/31/19 at 20:45 Fentanyl Citrate (Fentanyl 2ml Vial) 75 mcg PRN Q4HRS PRN IV SEVERE PAIN Last administered on 02/03/19at 07:41; Start 02/01/19 at 00:15 Atorvastatin Calcium (Lipitor) 20 mg QHS PO Last administered on 02/02/19 21:00; Start 02/01/19 at 21:00 Buspirone HCl (Buspar) 30 mg BID PO Last administered on 02/03/19 08:46; Start 02/01/19 at 21:00 Fluoxetine HCl (PROzac) 40 mg QHS PO Last administered on 02/02/19 21:02; Start 02/01/19 at 21:00 Haloperidol (Haldol) 10 mg DAILY PO Last administered on 02/03/19 08:46; Start 02/02/19 at 09:00 Lisinopril (Prinivil) 2.5 mg DAILY PO Last administered on 02/03/19 08:47; Start 02/02/19 at 09:00 Metformin HCl (Glucophage) 500 mg BIDWMEALS PO Last administered on 02/03/19 08:46; Start 02/01/19 at 18:30 Mirtazapine (Remeron) 45 mg QHS PO Last administered on 02/02/19 21:02; Start 02/01/19 at 21:00 Olanzapine (ZyPREXA) 15 mg QHS PO Last administered on 02/02/19 21:01; Start 02/01/19 at 21:00 Pantoprazole Sodium (Protonix) 40 mg DAILYAC PO ; Start 02/02/19 at 07:30 Polyethylene Glycol (miraLAX PACKET) 17 gm BID PO Last administered on 02/03/19 08:46; Start 02/02/19 at 21:00 Bisacodyl (Dulcolax Tab) 5 mg PRN DAILY PRN PO CONSTIPATION Last administered on 02/02/19 12:13; Start 02/02/19 at 11:45 Piperacillin Sod/ Tazobactam Sod 3.375 gm/Sodium Chloride 50 ml @ 100 mls/hr Q6HRS IV Last administered on 02/03/19 06:09; Start 02/02/19 at 14:00 Enoxaparin Sodium (Lovenox 40mg Syringe) 40 mg Q12HR SQ Last administered on 02/03/19 08:46; Start 02/02/19 at 14:00 Linezolid/Dextrose 300 ml @ 300 mls/hr Q12HR IV ; Start 02/03/19 at 11:00 Active Scripts Active Reported Buspirone Hcl 30 Mg Tablet 1 Tab PO BID Protonix (Pantoprazole Sodium) 20 Mg Tablet.dr 2 Tab PO DAILY Zantac (Ranitidine Hcl) 150 Mg Tablet 1 Tab PO HS Tums (Calcium Carbonate) 200 Mg Tab.chew 200 Mg PO TID Zyprexa (Olanzapine) 15 Mg Tablet 1 Tab PO QHS Remeron (Mirtazapine) 15 Mg Tablet 3 Tab PO QHS Lisinopril 2.5 Mg Tablet 1 Tab PO DAILY Atorvastatin Calcium 20 Mg Tablet 1 Tab PO DAILY Haloperidol 10 Mg Tablet 10 Mg PO DAILY Prozac (Fluoxetine Hcl) 40 Mg Capsule 1 Cap PO HS Metformin Hcl 500 Mg Tablet 500 Mg PO BIDWMEALS Vitals/I & O Vital Sign - Last 24 Hours 02/02/19 02/02/19 02/02/19 02/02/19 11:00 12:13 14:15 15:00 Temp 99.3 97.9 99.3 97.9 Pulse 108 101 Resp 16 18 B/P (MAP) 141/81 (101) 141/79 (99) Pulse Ox 95 98 O2 Delivery Room Air Room Air Room Air Room Air 02/02/19 02/02/19 02/02/19 02/02/19 16:51 18:15 19:40 19:58 Temp 100.4 100.4 Pulse 109 Resp 18 B/P (MAP) 134/77 (96) Pulse Ox 91 O2 Delivery Room Air Room Air Room Air Room Air 02/02/19 02/02/19 02/02/19 02/02/19 20:31 21:04 23:01 23:04 Temp 98.6 98.6 Pulse 103 Resp 20 20 18 20 B/P (MAP) 141/86 (104) Pulse Ox 97 O2 Delivery Room Air Room Air Room Air Room Air 02/03/19 02/03/19 02/03/19 02/03/19 01:11 03:00 03:19 03:49 Temp 99.0 99.0 Pulse 93 Resp 20 18 20 20 B/P (MAP) 141/96 (111) Pulse Ox 96 O2 Delivery Room Air Room Air Room Air 02/03/19 02/03/19 02/03/19 02/03/19 05:20 06:20 07:00 07:25 Temp 98.9 98.9 Pulse 100 Resp 20 20 18 B/P (MAP) 140/72 (94) Pulse Ox 95 O2 Delivery Room Air Room Air Room Air Room Air 02/03/19 02/03/19 02/03/19 02/03/19 07:41 08:11 08:45 08:47 Temp 98.9 98.9 Pulse 100 100 Resp 18 B/P (MAP) 140/72 (94) 140/72 Pulse Ox 95 O2 Delivery Room Air Room Air Room Air 02/03/19 09:22 O2 Delivery Room Air Intake and Output 02/02/19 02/02/19 02/03/19 15:00 23:00 07:00 Intake Total 960 ml Output Total 450 ml 840 ml Balance -450 ml 120 ml BERNARDINO COX MD February 03, 2019 10:31
--- NOTE | 2019-02-03 10:36 | PDOC ---
Infectious Disease Note Vital Sign Vital Signs Vital Signs Date Time Temp Pulse Resp B/P (MAP) Pulse Ox O2 Delivery O2 Flow Rate FiO2 02/03/19 10:33 Room Air 02/03/19 08:47 100 140/72 02/03/19 08:11 98.9 18 95 98.9 Labs Lab Laboratory Tests Test 02/02/19 15:00 02/03/19 06:25 02/03/19 07:31 Lactic Acid Level 0.9 mmol/L (0.4-2.0) Procalcitonin 0.45 ng/mL (0.00-0.10) White Blood Count 15.8 x10^3/uL (4.0-11.0) Red Blood Count 2.68 x10^6/uL (4.30-5.70) Hemoglobin 8.4 g/dL (13.0-17.5) Hematocrit 25.7 % (39.0-53.0) Mean Corpuscular Volume 96 fL (79-100) Mean Corpuscular Hemoglobin 31 pg (25-35) Mean Corpuscular Hemoglobin Concent 33 g/dL (31-37) Red Cell Distribution Width 15.0 % (11.5-14.5) Platelet Count 392 x10^3/uL (140-400) Neutrophils (%) (Auto) 61 % (31-73) Lymphocytes (%) (Auto) 24 % (24-48) Monocytes (%) (Auto) 10 % (0-9) Eosinophils (%) (Auto) 4 % (0-3) Basophils (%) (Auto) 1 % (0-3) Neutrophils # (Auto) 9.7 x10^3uL (1.8-7.7) Lymphocytes # (Auto) 3.7 x10^3/uL (1.0-4.8) Monocytes # (Auto) 1.5 x10^3/uL (0.0-1.1) Eosinophils # (Auto) 0.7 x10^3/uL (0.0-0.7) Basophils # (Auto) 0.1 x10^3/uL (0.0-0.2) Sodium Level 135 mmol/L (136-145) Potassium Level 3.8 mmol/L (3.5-5.1) Chloride Level 96 mmol/L (98-107) Carbon Dioxide Level 33 mmol/L (21-32) Anion Gap 6 (6-14) Blood Urea Nitrogen 10 mg/dL (8-26) Creatinine 1.2 mg/dL (0.7-1.3) Estimated GFR (Cockcroft-Gault) 68.1 BUN/Creatinine Ratio 8 (6-20) Glucose Level 148 mg/dL (70-99) Calcium Level 8.1 mg/dL (8.5-10.1) Total Bilirubin 1.9 mg/dL (0.2-1.0) Aspartate Amino Transf (AST/SGOT) 28 U/L (15-37) Alanine Aminotransferase (ALT/SGPT) 60 U/L (16-63) Alkaline Phosphatase 231 U/L (46-116) Total Protein 7.0 g/dL (6.4-8.2) Albumin 1.9 g/dL (3.4-5.0) Albumin/Globulin Ratio 0.4 (1.0-1.7) Glucose (Fingerstick) 136 mg/dL (70-99) Objective Assessment Fever Leukocytosis S/P Cholecystectomy ? Bile leak MRSA screen positive Plan Plan of Care cont zosyn, add zyvox supportive care HIDA scan pending JI VALDEZ MD February 03, 2019 10:36
--- NOTE | 2019-02-03 11:57 | NUR ---
Unable to obtain new IV, RN attempted x 1, attempts x [address] Jones paged overhead re: IV abx.
--- NOTE | 2019-02-03 14:49 | PDOC ---
G I PROGRESS NOTE Subjective Eating w/o N, V. No stool, but "lots" of flatus. Objective Drain output more bilious today. HIDA ordered. Physical Exam Lungs clear. RRR Abdomen soft, tender RUQ. Biliosanguinous fluid in drain. Review of Relevant I have reviewed the following items gustavo (where applicable) has been applied. Labs Laboratory Tests Test 02/02/19 04:10 02/02/19 15:00 02/03/19 06:25 02/03/19 07:31 White Blood Count 17.9 x10^3/uL (4.0-11.0) 15.8 x10^3/uL (4.0-11.0) Red Blood Count 2.92 x10^6/uL (4.30-5.70) 2.68 x10^6/uL (4.30-5.70) Hemoglobin 9.2 g/dL (13.0-17.5) 8.4 g/dL (13.0-17.5) Hematocrit 27.7 % (39.0-53.0) 25.7 % (39.0-53.0) Mean Corpuscular Volume 95 fL (79-100) 96 fL (79-100) Mean Corpuscular Hemoglobin 32 pg (25-35) 31 pg (25-35) Mean Corpuscular Hemoglobin Concent 33 g/dL (31-37) 33 g/dL (31-37) Red Cell Distribution Width 14.8 % (11.5-14.5) 15.0 % (11.5-14.5) Platelet Count 350 x10^3/uL (140-400) 392 x10^3/uL (140-400) Neutrophils (%) (Auto) 67 % (31-73) 61 % (31-73) Lymphocytes (%) (Auto) 21 % (24-48) 24 % (24-48) Monocytes (%) (Auto) 9 % (0-9) 10 % (0-9) Eosinophils (%) (Auto) 2 % (0-3) 4 % (0-3) Basophils (%) (Auto) 1 % (0-3) 1 % (0-3) Neutrophils # (Auto) 12.0 x10^3uL (1.8-7.7) 9.7 x10^3uL (1.8-7.7) Lymphocytes # (Auto) 3.8 x10^3/uL (1.0-4.8) 3.7 x10^3/uL (1.0-4.8) Monocytes # (Auto) 1.6 x10^3/uL (0.0-1.1) 1.5 x10^3/uL (0.0-1.1) Eosinophils # (Auto) 0.4 x10^3/uL (0.0-0.7) 0.7 x10^3/uL (0.0-0.7) Basophils # (Auto) 0.1 x10^3/uL (0.0-0.2) 0.1 x10^3/uL (0.0-0.2) Sodium Level 132 mmol/L (136-145) 135 mmol/L (136-145) Potassium Level 4.2 mmol/L (3.5-5.1) 3.8 mmol/L (3.5-5.1) Chloride Level 97 mmol/L (98-107) 96 mmol/L (98-107) Carbon Dioxide Level 29 mmol/L (21-32) 33 mmol/L (21-32) Anion Gap 6 (6-14) 6 (6-14) Blood Urea Nitrogen 11 mg/dL (8-26) 10 mg/dL (8-26) Creatinine 1.0 mg/dL (0.7-1.3) 1.2 mg/dL (0.7-1.3) Estimated GFR (Cockcroft-Gault) 84.1 68.1 Glucose Level 183 mg/dL (70-99) 148 mg/dL (70-99) Calcium Level 8.5 mg/dL (8.5-10.1) 8.1 mg/dL (8.5-10.1) Lactic Acid Level 0.9 mmol/L (0.4-2.0) Procalcitonin 0.45 ng/mL (0.00-0.10) BUN/Creatinine Ratio 8 (6-20) Total Bilirubin 1.9 mg/dL (0.2-1.0) Aspartate Amino Transf (AST/SGOT) 28 U/L (15-37) Alanine Aminotransferase (ALT/SGPT) 60 U/L (16-63) Alkaline Phosphatase 231 U/L (46-116) Total Protein 7.0 g/dL (6.4-8.2) Albumin 1.9 g/dL (3.4-5.0) Albumin/Globulin Ratio 0.4 (1.0-1.7) Glucose (Fingerstick) 136 mg/dL (70-99) Laboratory Tests Test 02/02/19 15:00 02/03/19 06:25 02/03/19 07:31 Lactic Acid Level 0.9 mmol/L (0.4-2.0) Procalcitonin 0.45 ng/mL (0.00-0.10) White Blood Count 15.8 x10^3/uL (4.0-11.0) Red Blood Count 2.68 x10^6/uL (4.30-5.70) Hemoglobin 8.4 g/dL (13.0-17.5) Hematocrit 25.7 % (39.0-53.0) Mean Corpuscular Volume 96 fL (79-100) Mean Corpuscular Hemoglobin 31 pg (25-35) Mean Corpuscular Hemoglobin Concent 33 g/dL (31-37) Red Cell Distribution Width 15.0 % (11.5-14.5) Platelet Count 392 x10^3/uL (140-400) Neutrophils (%) (Auto) 61 % (31-73) Lymphocytes (%) (Auto) 24 % (24-48) Monocytes (%) (Auto) 10 % (0-9) Eosinophils (%) (Auto) 4 % (0-3) Basophils (%) (Auto) 1 % (0-3) Neutrophils # (Auto) 9.7 x10^3uL (1.8-7.7) Lymphocytes # (Auto) 3.7 x10^3/uL (1.0-4.8) Monocytes # (Auto) 1.5 x10^3/uL (0.0-1.1) Eosinophils # (Auto) 0.7 x10^3/uL (0.0-0.7) Basophils # (Auto) 0.1 x10^3/uL (0.0-0.2) Sodium Level 135 mmol/L (136-145) Potassium Level 3.8 mmol/L (3.5-5.1) Chloride Level 96 mmol/L (98-107) Carbon Dioxide Level 33 mmol/L (21-32) Anion Gap 6 (6-14) Blood Urea Nitrogen 10 mg/dL (8-26) Creatinine 1.2 mg/dL (0.7-1.3) Estimated GFR (Cockcroft-Gault) 68.1 BUN/Creatinine Ratio 8 (6-20) Glucose Level 148 mg/dL (70-99) Calcium Level 8.1 mg/dL (8.5-10.1) Total Bilirubin 1.9 mg/dL (0.2-1.0) Aspartate Amino Transf (AST/SGOT) 28 U/L (15-37) Alanine Aminotransferase (ALT/SGPT) 60 U/L (16-63) Alkaline Phosphatase 231 U/L (46-116) Total Protein 7.0 g/dL (6.4-8.2) Albumin 1.9 g/dL (3.4-5.0) Albumin/Globulin Ratio 0.4 (1.0-1.7) Glucose (Fingerstick) 136 mg/dL (70-99) Still leukocytosis. LFT's normal. Procalcitonin up yesterday. Vitals/I & O Vital Sign - Last 24 Hours 02/02/19 02/02/19 02/02/19 02/02/19 15:00 16:51 18:15 19:40 Temp 97.9 97.9 Pulse 101 Resp 18 B/P (MAP) 141/79 (99) Pulse Ox 98 O2 Delivery Room Air Room Air Room Air Room Air 02/02/19 02/02/19 02/02/19 02/02/19 19:58 20:31 21:04 23:01 Temp 100.4 98.6 100.4 98.6 Pulse 109 103 Resp 18 20 20 18 B/P (MAP) 134/77 (96) 141/86 (104) Pulse Ox 91 97 O2 Delivery Room Air Room Air Room Air Room Air 02/02/19 02/03/19 02/03/19 02/03/19 23:04 01:11 03:00 03:19 Temp 99.0 99.0 Pulse 93 Resp 20 20 18 20 B/P (MAP) 141/96 (111) Pulse Ox 96 O2 Delivery Room Air Room Air Room Air Room Air 502/03/19 02/03/19 02/03/19 03:49 05:20 06:20 07:00 Temp 98.9 98.9 Pulse 100 Resp 20 20 20 18 B/P (MAP) 140/72 (94) Pulse Ox 95 O2 Delivery Room Air Room Air 02/03/19 02/03/19 02/03/19 02/03/19 07:25 07:41 08:11 08:45 Temp 98.9 98.9 Pulse 100 Resp 18 B/P (MAP) 140/72 (94) Pulse Ox 95 O2 Delivery Room Air Room Air Room Air Room Air 02/03/19 02/03/19 02/03/19 02/03/19 08:47 09:22 10:33 12:29 Pulse 100 B/P (MAP) 140/72 O2 Delivery Room Air Room Air Room Air 02/03/19 14:20 O2 Delivery Room Air Intake and Output 02/02/19 02/02/19 02/03/19 14:59 22:59 06:59 Intake Total 960 ml Output Total 450 ml 840 ml Balance -450 ml 120 ml Problem List Problems Medical Problems: (1) Common bile duct dilatation Status: Acute (2) Jaundice Status: Acute (3) Morbid obesity Status: Acute Assessment Bile leak? Plan of Care Note Continue as now. Await HIDA results. --off the . Coverage available if needed. Will re-evaluate Wednesday. HALEY CLARK MD February 03, 2019 14:49
[2019-02-03 15:00] VITALS: BP 126/74
[2019-02-03] MEDS: ONDANSETRON PF 4 MG/2 ML VIAL. IV PRN (15:27)
[2019-02-03 19:00] VITALS: BP 136/77
[2019-02-03] MEDS: ATORVASTATIN CALCIUM 20 MG TABLET PO SCH (21:00)
[2019-02-03] MEDS: MIRTAZAPINE 15 MG TABLET PO SCH (21:08)
[2019-02-03] MEDS: FLUoxetine HCL 20 MG CAPSULE PO SCH (21:08)
[2019-02-03] MEDS: OLANZapine 5 MG TABLET PO SCH (21:08)
[2019-02-03 23:00] VITALS: BP 130/65
--- NOTE | 2019-02-03 23:31 | CONS ---
DATE OF CONSULTATION: 02/03/2019 REQUESTING PHYSICIAN: Jaleel Lockwood. REASON FOR CONSULTATION: Fever and leukocytosis. HISTORY OF PRESENT ILLNESS: This is a 38-year-old gentleman who was admitted with abdominal pain and abnormal labs. The patient's bilirubin was 7.2. Further workup showed that he had a cholecystitis and possible CBD stone. The patient underwent a laparoscopic cholecystectomy with cholangiogram and common bile duct exploration. The patient's post-surgical course was complicated by having a slight fever up to 100.4 and white count went up, hence the consultation. The patient is sitting up in chair. He is feeling better. He does have abdominal pain and bile leak is suspected and HIDA scan is ordered. The patient denies any nausea, vomiting, diarrhea. Denies any chest pain, shortness of breath. He does have abdominal pain. Denies any other complaints. PAST MEDICAL HISTORY: Positive for diabetes mellitus, obesity and drug use. SOCIAL HISTORY: Positive for drug use. The patient is currently incarcerated. CURRENT MEDICATIONS: The patient is on Zosyn. ALLERGIES: LISTED ALLERGIC TO CODEINE AND LITHIUM. REVIEW OF SYSTEMS: As per HPI, all other systems reviewed are negative. PHYSICAL EXAMINATION: GENERAL: Alert, oriented gentleman, not in any distress. VITAL SIGNS: Stable, T-max of 100.4. HEENT: NAD. NECK: Supple, no JVP, no lymphadenopathy. LUNGS: Clear. HEART: S1, S2 regular. ABDOMEN: The patient does have a VIKY in place. No tenderness, rebound or guarding. EXTREMITIES: No edema or cyanosis. SKIN: Unremarkable. NEUROLOGIC: He is alert, awake and appropriate. No focal neurologic deficit. LABORATORY DATA: White count is 15,000. BUN and creatinine is normal. His liver functions are normal. His bilirubin has improved to 2.4. MRSA screen is positive. CT scan of the abdomen and pelvis, cholangiogram and ultrasound reviewed. IMPRESSION: 1. Fever. 2. Leukocytosis. 3. Suspected bile leak. 4. Status post cholecystectomy. 5. Obesity. 6. Hyperbilirubinemia. RECOMMENDATION: Continue Zosyn, add Zyvox, supportive care. Suspect soon to be able to switch over to oral for possible discharge. Thank you very much, Dr. Lockwood, for giving me the opportunity to participate in this patient's care. JI VALDEZ MD DR: ANITA/jony JOB#: [id number] / [id number]
[2019-02-04] MEDS: fentaNYL PF VIAL 100 MCG/2 ML VIAL IV PRN ×6 (00:35→22:22)
[2019-02-04] MEDS: PIPERACILLIN/TAZOBACTAM 3.375 GM in IV NORMAL SALINE 50ML 50 ML IV SCH ×4 (00:36→18:02)
[2019-02-04 03:00] VITALS: BP 115/69
[2019-02-04] MEDS: oxyCODONE/APAP 10/325 1 TAB TABLET PO PRN ×5 (03:44→20:15)
[2019-02-04 07:00] VITALS: BP 96/63
[2019-02-04 07:45] LABS: BASO # 0.1 x10^3/uL (0.0-0.2); BASO % 1 % (0-3); EOS # 0.8 x10^3/uL (0.0-0.7); EOS % 6 % (0-3); HEMOGLOBIN 7.9 g/dL (13.0-17.5); LYMPH # 3.4 x10^3/uL (1.0-4.8); LYMPH % 26 % (24-48); MEAN CORPUSCULAR HEMOGLOBIN 31 pg (25-35); MEAN CORPUSCULAR HGB CONC 33 g/dL (31-37); MEAN CORPUSCULAR VOLUME 95 fL (79-100); MONO # 1.2 x10^3/uL (0.0-1.1); MONO % 9 % (0-9); NEUT # 7.8 x10^3uL (1.8-7.7); NEUT % 58 % (31-73); PLATELET COUNT 400 x10^3/uL (140-400); RED BLOOD COUNT 2.52 x10^6/uL (4.30-5.70); RED CELL DISTRIBUTION WIDTH 14.8 % (11.5-14.5); WHITE BLOOD COUNT 13.4 x10^3/uL (4.0-11.0)
--- NOTE | 2019-02-04 08:00 | PDOC ---
PROGRESS NOTES History of Present Illness History of Present Illness Assessment/Plan Jaundice with transaminitis and hyperbilirubinemia some variable appearance of intraluminal filling defects in the common bile duct although confidently seen on last image Round filling defect in the distal common bile duct is likely choledocholithiasis rather than mass,. There is biliary ductal dilatation. cholelithiasis. T2 hyperintense liver lesions are more likely due to hemangiomas or complex cysts with debris, persistent pain, mod severe, CONTINUES normocytic anemia FEVER OVERNIGHT 101.6 F 02/02 EMESIS PM OF 02/02 Plan HIDA SCAN admitted general surgery and GI following d/w dr aj in count includes the [facility], abdominal ultrasound reviewed DVT prophylaxis full code home meds IV fluids when necessary Zofran when necessary prn narcotics prognosis guarded FOLLOW LFT'S, CBC, Surgery plans to check cbc in am, cont zosyn, add zyvox 36 MIN PT EXAM, chart review, > 50% of time spent with exam, chart review, pt care coordination Vitals Vitals Vital Signs Date Time Temp Pulse Resp B/P (MAP) Pulse Ox O2 Delivery O2 Flow Rate FiO2 02/04/19 06:33 20 Room Air 02/04/19 03:00 98.2 103 115/69 (84) 93 98.2 Physical Exam General: Alert, Oriented X3, Cooperative, No acute distress Heart: Regular rate, Normal S1, Normal S2, No murmurs Lungs: Clear Abdomen: Soft, Other (drain bilious now ) Extremities: No clubbing, No cyanosis Skin: Other (jaundice) Labs LABS Laboratory Tests Test 02/04/19 07:30 White Blood Count 13.4 x10^3/uL (4.0-11.0) Red Blood Count 2.52 x10^6/uL (4.30-5.70) Hemoglobin 7.9 g/dL (13.0-17.5) Hematocrit 24.0 % (39.0-53.0) Mean Corpuscular Volume 95 fL (79-100) Mean Corpuscular Hemoglobin 31 pg (25-35) Mean Corpuscular Hemoglobin Concent 33 g/dL (31-37) Red Cell Distribution Width 14.8 % (11.5-14.5) Platelet Count 400 x10^3/uL (140-400) Neutrophils (%) (Auto) 58 % (31-73) Lymphocytes (%) (Auto) 26 % (24-48) Monocytes (%) (Auto) 9 % (0-9) Eosinophils (%) (Auto) 6 % (0-3) Basophils (%) (Auto) 1 % (0-3) Neutrophils # (Auto) 7.8 x10^3uL (1.8-7.7) Lymphocytes # (Auto) 3.4 x10^3/uL (1.0-4.8) Monocytes # (Auto) 1.2 x10^3/uL (0.0-1.1) Eosinophils # (Auto) 0.8 x10^3/uL (0.0-0.7) Basophils # (Auto) 0.1 x10^3/uL (0.0-0.2) Assessment and Plan Assessmemt and Plan Problems Medical Problems: (1) Common bile duct dilatation Status: Acute (2) Jaundice Status: Acute (3) Morbid obesity Status: Acute Comment Review of Relevant I have reviewed the following items gustavo (where applicable) has been applied. Labs Laboratory Tests Test 02/02/19 15:00 02/03/19 06:25 02/03/19 07:31 02/04/19 07:30 Lactic Acid Level 0.9 mmol/L (0.4-2.0) Procalcitonin 0.45 ng/mL (0.00-0.10) White Blood Count 15.8 x10^3/uL (4.0-11.0) 13.4 x10^3/uL (4.0-11.0) Red Blood Count 2.68 x10^6/uL (4.30-5.70) 2.52 x10^6/uL (4.30-5.70) Hemoglobin 8.4 g/dL (13.0-17.5) 7.9 g/dL (13.0-17.5) Hematocrit 25.7 % (39.0-53.0) 24.0 % (39.0-53.0) Mean Corpuscular Volume 96 fL (79-100) 95 fL (79-100) Mean Corpuscular Hemoglobin 31 pg (25-35) 31 pg (25-35) Mean Corpuscular Hemoglobin Concent 33 g/dL (31-37) 33 g/dL (31-37) Red Cell Distribution Width 15.0 % (11.5-14.5) 14.8 % (11.5-14.5) Platelet Count 392 x10^3/uL (140-400) 400 x10^3/uL (140-400) Neutrophils (%) (Auto) 61 % (31-73) 58 % (31-73) Lymphocytes (%) (Auto) 24 % (24-48) 26 % (24-48) Monocytes (%) (Auto) 10 % (0-9) 9 % (0-9) Eosinophils (%) (Auto) 4 % (0-3) 6 % (0-3) Basophils (%) (Auto) 1 % (0-3) 1 % (0-3) Neutrophils # (Auto) 9.7 x10^3uL (1.8-7.7) 7.8 x10^3uL (1.8-7.7) Lymphocytes # (Auto) 3.7 x10^3/uL (1.0-4.8) 3.4 x10^3/uL (1.0-4.8) Monocytes # (Auto) 1.5 x10^3/uL (0.0-1.1) 1.2 x10^3/uL (0.0-1.1) Eosinophils # (Auto) 0.7 x10^3/uL (0.0-0.7) 0.8 x10^3/uL (0.0-0.7) Basophils # (Auto) 0.1 x10^3/uL (0.0-0.2) 0.1 x10^3/uL (0.0-0.2) Sodium Level 135 mmol/L (136-145) Potassium Level 3.8 mmol/L (3.5-5.1) Chloride Level 96 mmol/L (98-107) Carbon Dioxide Level 33 mmol/L (21-32) Anion Gap 6 (6-14) Blood Urea Nitrogen 10 mg/dL (8-26) Creatinine 1.2 mg/dL (0.7-1.3) Estimated GFR (Cockcroft-Gault) 68.1 BUN/Creatinine Ratio 8 (6-20) Glucose Level 148 mg/dL (70-99) Calcium Level 8.1 mg/dL (8.5-10.1) Total Bilirubin 1.9 mg/dL (0.2-1.0) Aspartate Amino Transf (AST/SGOT) 28 U/L (15-37) Alanine Aminotransferase (ALT/SGPT) 60 U/L (16-63) Alkaline Phosphatase 231 U/L (46-116) Total Protein 7.0 g/dL (6.4-8.2) Albumin 1.9 g/dL (3.4-5.0) Albumin/Globulin Ratio 0.4 (1.0-1.7) Glucose (Fingerstick) 136 mg/dL (70-99) Laboratory Tests Test 02/04/19 07:30 White Blood Count 13.4 x10^3/uL (4.0-11.0) Red Blood Count 2.52 x10^6/uL (4.30-5.70) Hemoglobin 7.9 g/dL (13.0-17.5) Hematocrit 24.0 % (39.0-53.0) Mean Corpuscular Volume 95 fL (79-100) Mean Corpuscular Hemoglobin 31 pg (25-35) Mean Corpuscular Hemoglobin Concent 33 g/dL (31-37) Red Cell Distribution Width 14.8 % (11.5-14.5) Platelet Count 400 x10^3/uL (140-400) Neutrophils (%) (Auto) 58 % (31-73) Lymphocytes (%) (Auto) 26 % (24-48) Monocytes (%) (Auto) 9 % (0-9) Eosinophils (%) (Auto) 6 % (0-3) Basophils (%) (Auto) 1 % (0-3) Neutrophils # (Auto) 7.8 x10^3uL (1.8-7.7) Lymphocytes # (Auto) 3.4 x10^3/uL (1.0-4.8) Monocytes # (Auto) 1.2 x10^3/uL (0.0-1.1) Eosinophils # (Auto) 0.8 x10^3/uL (0.0-0.7) Basophils # (Auto) 0.1 x10^3/uL (0.0-0.2) Microbiology 02/02/19 Blood Culture - Preliminary, Resulted NO GROWTH AFTER 1 DAY Medications Current Medications Iohexol (Omnipaque 240 Mg/ml) 30 ml 1X ONCE PO Last administered on 01/27/19at 19:15; Start 01/27/19 at 19:15; Stop 01/27/19 at 19:16; Status DC Iohexol (Omnipaque 300 Mg/ml) 75 ml 1X ONCE IV Last administered on 01/27/19at 20:10; Start 01/27/19 at 19:15; Stop 01/27/19 at 19:16; Status DC Info (CONTRAST GIVEN -- Rx MONITORING) 1 each PRN DAILY PRN MC SEE COMMENTS; Start 01/27/19 at 19:30; Stop 01/29/19 at 19:29; Status DC Ketorolac Tromethamine (Toradol 30mg Vial) 30 mg 1X ONCE IV Last administered on 01/27/19at 22:02; Start 01/27/19 at 21:30; Stop 01/27/19 at 21:31; Status DC Sodium Chloride 1,000 ml @ 1,000 mls/hr 1X ONCE IV Last administered on 01/27/19at 21:58; Start 01/27/19 at 21:30; Stop 01/27/19 at 22:29; Status DC Sodium Chloride 1,000 ml @ 150 mls/hr Q6H40M IV Last administered on 01/28/19at 12:34; Start 01/27/19 at 22:00; Stop 01/28/19 at 21:59; Status DC Morphine Sulfate (Morphine Sulfate) 2 mg PRN Q2HR PRN IV PAIN; Start 01/28/19 at 08:15; Stop 01/28/19 at 08:23; Status DC Ketorolac Tromethamine (Toradol 30mg Vial) 20 mg PRN Q6HRS PRN IV MILD PAIN Last administered on 02/01/19at 16:29; Start 01/28/19 at 08:15; Stop 02/02/19 at 08:14; Status DC Fentanyl Citrate (Fentanyl 2ml Vial) 50 mcg PRN Q2HR PRN IV MODERATE PAIN, SEVERE PAIN Last administered on 01/29/19at 17:28; Start 01/28/19 at 08:30; Stop 01/29/19 at 18:44; Status DC Cefazolin Sodium/ Dextrose 50 ml @ 100 mls/hr 1X PREOP IV ; Start 01/28/19 at 15:45; Stop 01/29/19 at 10:14; Status DC Fentanyl Citrate (Fentanyl 2ml Vial) 25 mcg PRN Q5MIN PRN IV MILD PAIN; Start 01/29/19 at 07:00; Stop 01/29/19 at 19:00; Status DC Fentanyl Citrate (Fentanyl 2ml Vial) 50 mcg PRN Q5MIN PRN IV MODERATE TO SEVERE PAIN Last administered on 01/29/19at 16:32; Start 01/29/19 at 07:00; Stop 01/29/19 at 19:00; Status DC Ringer's Solution 1,000 ml @ 30 mls/hr Q24H IV Last administered on 01/29/19at 09:49; Start 01/29/19 at 07:00; Stop 01/29/19 at 18:59; Status DC Prochlorperazine Edisylate (Compazine) 5 mg PACU PRN PRN IV NAUSEA, MRX1; Star t 01/29/19 at 07:00; Stop 01/29/19 at 19:00; Status DC Dextrose (Dextrose 50%-Water Syringe) 12.5 gm PRN Q15MIN PRN IV SEE COMMENTS; Start 01/28/19 at 19:45; Stop 01/30/19 at 13:49; Status DC Bupivacaine HCl/ Epinephrine Bitart (Sensorcain-Mpf Epi 0.5%-1:[id number]) 30 ml STK-MED ONCE .ROUTE Last administered on 01/29/19 12:35; Start 01/29/19 at 07:14; Stop 01/29/19 at 08:15; Status DC Cellulose (Surgicel Hemostat 2x3) 1 each STK-MED ONCE .ROUTE Last administered on 01/29/19 12:35; Start 01/29/19 at 07:14; Stop 01/29/19 at 08:15; Status DC Heparin Sodium (Porcine) (Heparin Sodium) 10,000 unit STK-MED ONCE .ROUTE Last administered on 01/29/19 12:35; Start 01/29/19 at 07:14; Stop 01/29/19 at 08:15; Status DC Iohexol (Omnipaque 300 Mg/ml) 50 ml STK-MED ONCE .ROUTE Last administered on 01/29/19 12:35; Start 01/29/19 at 07:14; Stop 01/29/19 at 08:16; Status DC Bisacodyl (Dulcolax Supp) 10 mg STK-MED ONCE .ROUTE Last administered on 01/29/19at 12:35; Start 01/29/19 at 07:15; Stop 01/29/19 at 08:16; Status DC Cefazolin Sodium/ Dextrose 50 ml @ 100 mls/hr 1X PREOP IV ; Start 01/29/19 at 10:15; Stop 01/29/19 at 18:56; Status DC Ondansetron HCl (Zofran) 4 mg STK-MED ONCE .ROUTE ; Start 01/29/19 at 11:34; Stop 01/29/19 at 11:35; Status DC Propofol 20 ml @ As Directed STK-MED ONCE IV ; Start 01/29/19 at 11:34; Stop 01/29/19 at 11:35; Status DC Lidocaine HCl (Lidocaine Pf 2% Vial) 5 ml STK-MED ONCE .ROUTE ; Start 01/29/19 at 11:34; Stop 01/29/19 at 11:35; Status DC Fentanyl Citrate (Fentanyl 2ml Vial) 100 mcg STK-MED ONCE .ROUTE ; Start 01/29/19 at 11:34; Stop 01/29/19 at 11:35; Status DC Dexamethasone Sodium Phosphate (Decadron) 4 mg STK-MED ONCE .ROUTE ; Start 01/29/19 at 11:35; Stop 01/29/19 at 11:36; Status DC Rocuronium Nisula (Zemuron) 50 mg STK-MED ONCE .ROUTE ; Start 01/29/19 at 11:35; Stop 01/29/19 at 11:36; Status DC Succinylcholine Chloride (Anectine) 200 mg STK-MED ONCE .ROUTE ; Start 01/29/19 at 11:54; Stop 01/29/19 at 11:55; Status DC Cefazolin Sodium 100 ml @ As Directed STK-MED ONCE IV ; Start 01/29/19 at 12:06; Stop 01/29/19 at 12:07; Status DC Cefazolin Sodium 50 ml @ As Directed STK-MED ONCE IV ; Start 01/29/19 at 12:07; Stop 01/29/19 at 12:08; Status DC Cefazolin Sodium 3 gm/Dextrose 100 ml @ 200 mls/hr 1X ONCE IV Last administer ed on 01/29/19at 12:09; Start 01/29/19 at 13:00; Stop 01/29/19 at 13:29; Status DC Glycopyrrolate (Robinul) 1 mg STK-MED ONCE .ROUTE ; Start 01/29/19 at 12:57; Stop 01/29/19 at 12:58; Status DC Neostigmine Methylsulfate (Neostigmine Methylsulfate) 5 mg STK-MED ONCE .ROUTE ; Start 01/29/19 at 12:58; Stop 01/29/19 at 12:59; Status DC Rocuronium Nisula (Zemuron) 50 mg STK-MED ONCE .ROUTE ; Start 01/29/19 at 13:07; Stop 01/29/19 at 13:08; Status DC Fentanyl Citrate (Fentanyl 2ml Vial) 100 mcg STK-MED ONCE .ROUTE ; Start 01/29/19 at 13:10; Stop 01/29/19 at 13:11; Status DC Iohexol (Omnipaque 300 Mg/ml) 50 ml STK-MED ONCE .ROUTE Last administered on 01/29/19at 12:35; Start 01/29/19 at 12:36; Stop 01/29/19 at 13:37; Status DC Cellulose (Surgicel Hemostat 4x8) 1 each STK-MED ONCE .ROUTE Last administered on 01/29/19at 12:35; Start 01/29/19 at 13:42; Stop 01/29/19 at 14:42; Status DC Cellulose (Surgicel Hemostat 4x8) 1 each STK-MED ONCE .ROUTE Last administered on 01/29/19at 12:35; Start 01/29/19 at 13:46; Stop 01/29/19 at 14:46; Status DC Ketorolac Tromethamine (Toradol For Or Only) 30 mg STK-MED ONCE INJ ; Start 01/29/19 at 14:59; Stop 01/29/19 at 15:00; Status DC Glycopyrrolate (Robinul) 1 mg STK-MED ONCE .ROUTE ; Start 01/29/19 at 15:13; Stop 01/29/19 at 15:14; Status DC Neostigmine Methylsulfate (Neostigmine Methylsulfate) 5 mg STK-MED ONCE .ROUTE ; Start 01/29/19 at 15:13; Stop 01/29/19 at 15:14; Status DC Sevoflurane (Ultane) 90 ml STK-MED ONCE IH ; Start 01/29/19 at 15:20; Stop 01/29/19 at 15:21; Status DC Fentanyl Citrate (Fentanyl 2ml Vial) 100 mcg STK-MED ONCE .ROUTE ; Start 01/29/19 at 15:32; Stop 01/29/19 at 15:33; Status DC Fentanyl Citrate (Fentanyl 2ml Vial) 100 mcg STK-MED ONCE .ROUTE ; Start 01/29/19 at 15:48; Stop 01/29/19 at 15:49; Status DC Sodium Chloride (Normal Saline Flush) 3 ml QSHIFT PRN IV AFTER MEDS AND BLOOD DRAWS; Start 01/29/19 at 16:00 Ringer's Solution 1,000 ml @ 100 mls/hr Q10H IV Last administered on 01/31/19at 16:36; Start 01/29/19 at 15:46; Stop 02/01/19 at 01:42; Status DC Dextrose (Dextrose 50%-Water Syringe) 12.5 gm PRN Q15MIN PRN IV SEE COMMENTS; Start 01/29/19 at 16:00 Acetaminophen/ Hydrocodone Bitart (Lortab 5/325) 1 tab PRN Q4HRS PRN PO MILD PAIN Last administered on 01/29/19at 17:28; Start 01/29/19 at 16:00; Stop 01/29/19 at 18:45; Status DC Docusate Sodium (Colace) 100 mg BID PO Last administered on 02/03/19at 21:08; Start 01/29/19 at 21:00 Ondansetron HCl (Zofran) 4 mg PRN Q6HRS PRN IV NAUESA, 1ST CHOICE Last administered on 02/03/19 15:27; Start 01/29/19 at 16:00 Famotidine (Pepcid Vial) 20 mg 1X ONCE IVP Last administered on 01/29/19at 16:14; Start 01/29/19 at 16:15; Stop 01/29/19 at 16:16; Status DC Pantoprazole Sodium (Protonix) 40 mg DAILYAC PO Last administered on 5/3/19at 07:40; Start 01/30/19 at 07:30 Fentanyl Citrate (Fentanyl 2ml Vial) 75 mcg PRN Q2HR PRN IV SEVERE PAIN Last administered on 02/01/19 00:09; Start 01/29/19 at 18:45; Stop 02/01/19 at 00:13; Status DC Acetaminophen/ Hydrocodone Bitart (Lortab 10/325) 1 tab PRN Q6HRS PRN PO MODERATE PAIN Last administered on 01/31/19 18:44; Start 01/29/19 at 18:45; Stop 01/31/19 at 23:58; Status DC Cefazolin Sodium/ Dextrose (Ancef 2gm Premix) 2 gm STK-MED ONCE IV ; Start 01/28/19 at 11:00; Stop 01/30/19 at 07:38; Status DC Oxycodone/ Acetaminophen (Percocet 10/325) 1 tab PRN Q4HRS PRN PO severe pain Last administered on 02/04/19 03:44; Start 01/31/19 at 20:45 Fentanyl Citrate (Fentanyl 2ml Vial) 75 mcg PRN Q4HRS PRN IV SEVERE PAIN Last administered on 02/04/19 06:03; Start 02/01/19 at 00:15 Atorvastatin Calcium (Lipitor) 20 mg QHS PO Last administered on 02/03/19 21:00; Start 02/01/19 at 21:00 Buspirone HCl (Buspar) 30 mg BID PO Last administered on 02/03/19 21:07; Start 02/01/19 at 21:00 Fluoxetine HCl (PROzac) 40 mg QHS PO Last administered on 02/03/19 21:08; Start 02/01/19 at 21:00 Haloperidol (Haldol) 10 mg DAILY PO Last administered on 02/03/19 08:46; Start 02/02/19 at 09:00 Lisinopril (Prinivil) 2.5 mg DAILY PO Last administered on 02/03/19 08:47; Start 02/02/19 at 09:00 Metformin HCl (Glucophage) 500 mg BIDWMEALS PO Last administered on 02/03/19 16:37; Start 02/01/19 at 18:30 Mirtazapine (Remeron) 45 mg QHS PO Last administered on 02/03/19 21:08; Start 02/01/19 at 21:00 Olanzapine (ZyPREXA) 15 mg QHS PO Last administered on 02/03/19 21:08; Start 02/01/19 at 21:00 Pantoprazole Sodium (Protonix) 40 mg DAILYAC PO ; Start 02/02/19 at 07:30; Stop 02/04/19 at 07:22; Status DC Polyethylene Glycol (miraLAX PACKET) 17 gm BID PO Last administered on 02/03/19 21:06; Start 02/02/19 at 21:00 Bisacodyl (Dulcolax Tab) 5 mg PRN DAILY PRN PO CONSTIPATION Last administered on 02/02/19 12:13; Start 02/02/19 at 11:45 Piperacillin Sod/ Tazobactam Sod 3.375 gm/Sodium Chloride 50 ml @ 100 mls/hr Q6HRS IV Last administered on 02/04/19 05:59; Start 02/02/19 at 14:00 Enoxaparin Sodium (Lovenox 40mg Syringe) 40 mg Q12HR SQ Last administered on 02/03/19 21:09; Start 02/02/19 at 14:00 Linezolid/Dextrose 300 ml @ 300 mls/hr Q12HR IV Last administered on 02/03/19 21:08; Start 02/03/19 at 11:00 Active Scripts Active Reported Buspirone Hcl 30 Mg Tablet 1 Tab PO BID Protonix (Pantoprazole Sodium) 20 Mg Tablet.dr 2 Tab PO DAILY Zantac (Ranitidine Hcl) 150 Mg Tablet 1 Tab PO HS Tums (Calcium Carbonate) 200 Mg Tab.chew 200 Mg PO TID Zyprexa (Olanzapine) 15 Mg Tablet 1 Tab PO QHS Remeron (Mirtazapine) 15 Mg Tablet 3 Tab PO QHS Lisinopril 2.5 Mg Tablet 1 Tab PO DAILY Atorvastatin Calcium 20 Mg Tablet 1 Tab PO DAILY Haloperidol 10 Mg Tablet 10 Mg PO DAILY Prozac (Fluoxetine Hcl) 40 Mg Capsule 1 Cap PO HS Metformin Hcl 500 Mg Tablet 500 Mg PO BIDWMEALS Vitals/I & O Vital Sign - Last 24 Hours 02/03/19 02/03/19 02/03/19 02/03/19 08:11 08:47 09:22 12:29 Temp 98.9 98.9 Pulse 100 100 Resp 18 B/P (MAP) 140/72 (94) 140/72 Pulse Ox 95 O2 Delivery Room Air Room Air Room Air 02/03/19 02/03/19 02/03/19 02/03/19 14:20 15:00 16:37 18:26 Temp 98.7 98.7 Pulse 109 Resp 18 B/P (MAP) 126/74 (91) Pulse Ox 97 O2 Delivery Room Air Room Air Room Air Room Air 02/03/19 02/03/19 02/03/19 02/03/19 19:00 20:00 20:31 22:40 Temp 98.5 98.5 Pulse 108 Resp 18 20 20 B/P (MAP) 136/77 (96) Pulse Ox 92 O2 Delivery Room Air Room Air Room Air Room Air 02/03/19 02/04/19 02/04/19 02/04/19 23:00 00:35 03:00 03:44 Temp 99.3 98.2 99.3 98.2 Pulse 109 103 Resp 18 20 18 20 B/P (MAP) 130/65 (86) 115/69 (84) Pulse Ox 93 93 O2 Delivery Room Air Room Air Room Air Room Air 02/04/19 02/04/19 02/04/19 04:44 06:03 06:33 Resp 20 20 20 O2 Delivery Room Air Room Air Room Air Intake and Output 02/03/19 02/03/19 02/04/19 14:59 22:59 06:59 Output Total 30 ml 440 ml Balance -30 ml -440 ml BERNARDINO COX MD February 04, 2019 08:00
[2019-02-04 08:04] LABS: CALCIUM 7.9 mg/dL (8.5-10.1); GFR 84.1; POTASSIUM 3.5 mmol/L (3.5-5.1)
[2019-02-04] MEDS: PANTOPRAZOLE 40 MG TABLET.DR. PO SCH (08:38)
[2019-02-04] MEDS: HALOPERIDOL 5 MG TABLET. PO SCH (08:38)
[2019-02-04] MEDS: POLYETHYLENE GLYCOL 3350 17 GM PACKET. PO SCH ×2 (08:39→22:21)
[2019-02-04] MEDS: ENOXAPARIN 40 MG/0.4 ML SYRINGE. SQ SCH ×2 (08:39→21:00)
[2019-02-04] MEDS: metFORMIN 500 MG TABLET PO SCH ×2 (08:41→18:01)
[2019-02-04] MEDS: LISINOPRIL 5 MG TABLET. PO SCH (08:41)
[2019-02-04] MEDS: DOCUSATE SODIUM 100 MG CAPSULE. PO SCH ×2 (08:42→21:00)
--- NOTE | 2019-02-04 09:43 | PDOC ---
SURGICAL PROGRESS NOTE Subjective pain about a 5 no emesis + stools Vital Signs Vital Signs Date Time Temp Pulse Resp B/P (MAP) Pulse Ox O2 Delivery O2 Flow Rate FiO2 02/04/19 08:41 101 96/63 02/04/19 08:41 20 Room Air 02/04/19 07:00 98.6 92 98.6 I&O Intake and Output 02/04/19 07:00 Output Total 470 ml Balance -470 ml Drainage Total 470 ml # Voids 1 # Bowel Movements 4 General: Alert, Oriented X3, Cooperative, No acute distress Abdomen: Soft, Other (drain more bloody, less bilious today) Labs Laboratory Tests Test 02/02/19 15:00 02/03/19 06:25 02/03/19 07:31 02/04/19 07:30 Lactic Acid Level 0.9 mmol/L (0.4-2.0) Procalcitonin 0.45 ng/mL (0.00-0.10) White Blood Count 15.8 x10^3/uL (4.0-11.0) 13.4 x10^3/uL (4.0-11.0) Red Blood Count 2.68 x10^6/uL (4.30-5.70) 2.52 x10^6/uL (4.30-5.70) Hemoglobin 8.4 g/dL (13.0-17.5) 7.9 g/dL (13.0-17.5) Hematocrit 25.7 % (39.0-53.0) 24.0 % (39.0-53.0) Mean Corpuscular Volume 96 fL (79-100) 95 fL (79-100) Mean Corpuscular Hemoglobin 31 pg (25-35) 31 pg (25-35) Mean Corpuscular Hemoglobin Concent 33 g/dL (31-37) 33 g/dL (31-37) Red Cell Distribution Width 15.0 % (11.5-14.5) 14.8 % (11.5-14.5) Platelet Count 392 x10^3/uL (140-400) 400 x10^3/uL (140-400) Neutrophils (%) (Auto) 61 % (31-73) 58 % (31-73) Lymphocytes (%) (Auto) 24 % (24-48) 26 % (24-48) Monocytes (%) (Auto) 10 % (0-9) 9 % (0-9) Eosinophils (%) (Auto) 4 % (0-3) 6 % (0-3) Basophils (%) (Auto) 1 % (0-3) 1 % (0-3) Neutrophils # (Auto) 9.7 x10^3uL (1.8-7.7) 7.8 x10^3uL (1.8-7.7) Lymphocytes # (Auto) 3.7 x10^3/uL (1.0-4.8) 3.4 x10^3/uL (1.0-4.8) Monocytes # (Auto) 1.5 x10^3/uL (0.0-1.1) 1.2 x10^3/uL (0.0-1.1) Eosinophils # (Auto) 0.7 x10^3/uL (0.0-0.7) 0.8 x10^3/uL (0.0-0.7) Basophils # (Auto) 0.1 x10^3/uL (0.0-0.2) 0.1 x10^3/uL (0.0-0.2) Sodium Level 135 mmol/L (136-145) 137 mmol/L (136-145) Potassium Level 3.8 mmol/L (3.5-5.1) 3.5 mmol/L (3.5-5.1) Chloride Level 96 mmol/L (98-107) 99 mmol/L (98-107) Carbon Dioxide Level 33 mmol/L (21-32) 32 mmol/L (21-32) Anion Gap 6 (6-14) 6 (6-14) Blood Urea Nitrogen 10 mg/dL (8-26) 8 mg/dL (8-26) Creatinine 1.2 mg/dL (0.7-1.3) 1.0 mg/dL (0.7-1.3) Estimated GFR (Cockcroft-Gault) 68.1 84.1 BUN/Creatinine Ratio 8 (6-20) Glucose Level 148 mg/dL (70-99) 153 mg/dL (70-99) Calcium Level 8.1 mg/dL (8.5-10.1) 7.9 mg/dL (8.5-10.1) Total Bilirubin 1.9 mg/dL (0.2-1.0) Aspartate Amino Transf (AST/SGOT) 28 U/L (15-37) Alanine Aminotransferase (ALT/SGPT) 60 U/L (16-63) Alkaline Phosphatase 231 U/L (46-116) Total Protein 7.0 g/dL (6.4-8.2) Albumin 1.9 g/dL (3.4-5.0) Albumin/Globulin Ratio 0.4 (1.0-1.7) Glucose (Fingerstick) 136 mg/dL (70-99) Laboratory Tests Test 02/04/19 07:30 White Blood Count 13.4 x10^3/uL (4.0-11.0) Red Blood Count 2.52 x10^6/uL (4.30-5.70) Hemoglobin 7.9 g/dL (13.0-17.5) Hematocrit 24.0 % (39.0-53.0) Mean Corpuscular Volume 95 fL (79-100) Mean Corpuscular Hemoglobin 31 pg (25-35) Mean Corpuscular Hemoglobin Concent 33 g/dL (31-37) Red Cell Distribution Width 14.8 % (11.5-14.5) Platelet Count 400 x10^3/uL (140-400) Neutrophils (%) (Auto) 58 % (31-73) Lymphocytes (%) (Auto) 26 % (24-48) Monocytes (%) (Auto) 9 % (0-9) Eosinophils (%) (Auto) 6 % (0-3) Basophils (%) (Auto) 1 % (0-3) Neutrophils # (Auto) 7.8 x10^3uL (1.8-7.7) Lymphocytes # (Auto) 3.4 x10^3/uL (1.0-4.8) Monocytes # (Auto) 1.2 x10^3/uL (0.0-1.1) Eosinophils # (Auto) 0.8 x10^3/uL (0.0-0.7) Basophils # (Auto) 0.1 x10^3/uL (0.0-0.2) Sodium Level 137 mmol/L (136-145) Potassium Level 3.5 mmol/L (3.5-5.1) Chloride Level 99 mmol/L (98-107) Carbon Dioxide Level 32 mmol/L (21-32) Anion Gap 6 (6-14) Blood Urea Nitrogen 8 mg/dL (8-26) Creatinine 1.0 mg/dL (0.7-1.3) Estimated GFR (Cockcroft-Gault) 84.1 Glucose Level 153 mg/dL (70-99) Calcium Level 7.9 mg/dL (8.5-10.1) Problem List Problems Medical Problems: (1) Common bile duct dilatation Status: Acute (2) Jaundice Status: Acute (3) Morbid obesity Status: Acute Assessment/Plan HIDA report pending, however drain minimal bilious now [employer] February 04, 2019 09:43
[2019-02-04] MEDS: busPIRone 10 MG TABLET. PO SCH ×2 (10:16→22:21)
[2019-02-04 11:00] VITALS: BP 105/69
--- NOTE | 2019-02-04 11:37 | PDOC ---
Infectious Disease Note Subjective Subjective Feeling alright eating No fevers last 24 hours ROS ROS per HPI Vital Sign Vital Signs Vital Signs Date Time Temp Pulse Resp B/P (MAP) Pulse Ox O2 Delivery O2 Flow Rate FiO2 02/04/19 10:16 20 Room Air 02/04/19 08:41 101 96/63 02/04/19 07:00 98.6 92 98.6 Physical Exam PHYSICAL EXAM GENERAL: Propped up in bed, alert, NAD HEENT: Oral cavity clear NECK: Supple, no JVP, no lymphadenopathy. LUNGS: Clear. HEART: S1, S2 regular. ABDOMEN: Obese, soft, mildly tender, VIKY w/ sang drainage EXTREMITIES: No edema or cyanosis. SKIN: No rash NEUROLOGIC: Alert, oriented PIV Labs Lab Laboratory Tests Test 02/04/19 07:30 White Blood Count 13.4 x10^3/uL (4.0-11.0) Red Blood Count 2.52 x10^6/uL (4.30-5.70) Hemoglobin 7.9 g/dL (13.0-17.5) Hematocrit 24.0 % (39.0-53.0) Mean Corpuscular Volume 95 fL (79-100) Mean Corpuscular Hemoglobin 31 pg (25-35) Mean Corpuscular Hemoglobin Concent 33 g/dL (31-37) Red Cell Distribution Width 14.8 % (11.5-14.5) Platelet Count 400 x10^3/uL (140-400) Neutrophils (%) (Auto) 58 % (31-73) Lymphocytes (%) (Auto) 26 % (24-48) Monocytes (%) (Auto) 9 % (0-9) Eosinophils (%) (Auto) 6 % (0-3) Basophils (%) (Auto) 1 % (0-3) Neutrophils # (Auto) 7.8 x10^3uL (1.8-7.7) Lymphocytes # (Auto) 3.4 x10^3/uL (1.0-4.8) Monocytes # (Auto) 1.2 x10^3/uL (0.0-1.1) Eosinophils # (Auto) 0.8 x10^3/uL (0.0-0.7) Basophils # (Auto) 0.1 x10^3/uL (0.0-0.2) Sodium Level 137 mmol/L (136-145) Potassium Level 3.5 mmol/L (3.5-5.1) Chloride Level 99 mmol/L (98-107) Carbon Dioxide Level 32 mmol/L (21-32) Anion Gap 6 (6-14) Blood Urea Nitrogen 8 mg/dL (8-26) Creatinine 1.0 mg/dL (0.7-1.3) Estimated GFR (Cockcroft-Gault) 84.1 Glucose Level 153 mg/dL (70-99) Calcium Level 7.9 mg/dL (8.5-10.1) Micro Microbiology 02/02/19 Blood Culture - Preliminary, Resulted NO GROWTH AFTER 1 DAY Objective Assessment Fever. better Leukocytosis, improving Suspected bile leak. Status post cholecystectomy. Obesity. Hyperbilirubinemia. Plan Plan of Care cont Zosyn, and Zyvox supportive care HIDA scan pending Patient seen, examined, I agree with above Assessment and plan by INCLINOMETER TESTER. D/W family at bedside PEDRO WEEMS APRN February 04, 2019 11:37 RICCO VALDEZ MD February 04, 2019 13:53
[2019-02-04 15:00] VITALS: BP 142/81
[2019-02-04 19:27] VITALS: BP 141/78
[2019-02-04] MEDS ORDERED: ACETAMINOPHEN 325 MG TABLET. PO PRN (19:30)
[2019-02-04] MEDS: ATORVASTATIN CALCIUM 20 MG TABLET PO SCH (22:19)
[2019-02-04] MEDS: OLANZapine 5 MG TABLET PO SCH (22:19)
[2019-02-04] MEDS: FLUoxetine HCL 20 MG CAPSULE PO SCH (22:20)
[2019-02-04] MEDS: LACTOBACILLUS RHAMNOSUS GG 1 CAPSULE. PO SCH (22:20)
[2019-02-04] MEDS: MIRTAZAPINE 15 MG TABLET PO SCH (22:20)
[2019-02-04 23:00] VITALS: BP 155/84
[2019-02-05] MEDS: oxyCODONE/APAP 10/325 1 TAB TABLET PO PRN ×6 (00:14→20:29)
[2019-02-05] MEDS: PIPERACILLIN/TAZOBACTAM 3.375 GM in IV NORMAL SALINE 50ML 50 ML IV SCH ×4 (00:16→16:22)
[2019-02-05] MEDS: fentaNYL PF VIAL 100 MCG/2 ML VIAL IV PRN ×6 (02:41→22:39)
[2019-02-05] MEDS: MICAFUNGIN 100 MG in IV DEXTROSE 5% 100ML 100 ML IV SCH ×2 (02:41→22:40)
[2019-02-05 03:28] VITALS: BP 133/75
[2019-02-05] MEDS: PANTOPRAZOLE 40 MG TABLET.DR. PO SCH (06:09)
[2019-02-05 07:00] VITALS: BP 138/79
[2019-02-05] MEDS: LACTOBACILLUS RHAMNOSUS GG 1 CAPSULE. PO SCH ×2 (08:22→20:28)
[2019-02-05] MEDS: HALOPERIDOL 5 MG TABLET. PO SCH (08:22)
[2019-02-05] MEDS: ENOXAPARIN 40 MG/0.4 ML SYRINGE. SQ SCH ×2 (08:22→20:30)
[2019-02-05] MEDS: DOCUSATE SODIUM 100 MG CAPSULE. PO SCH ×2 (08:22→20:29)
[2019-02-05] MEDS: metFORMIN 500 MG TABLET PO SCH ×2 (08:23→16:22)
[2019-02-05] MEDS: POLYETHYLENE GLYCOL 3350 17 GM PACKET. PO SCH ×2 (08:23→20:29)
[2019-02-05] MEDS: LISINOPRIL 5 MG TABLET. PO SCH (08:35)
--- NOTE | 2019-02-05 10:09 | PDOC ---
PROGRESS NOTES History of Present Illness History of Present Illness Assessment/Plan Jaundice with transaminitis and hyperbilirubinemia some variable appearance of intraluminal filling defects in the common bile duct although confidently seen on last image Round filling defect in the distal common bile duct is likely choledocholithiasis rather than mass,. There is biliary ductal dilatation. cholelithiasis. T2 hyperintense liver lesions are more likely due to hemangiomas or complex cysts with debris, persistent pain, mod severe, CONTINUES normocytic anemia FEVER OVERNIGHT 101.6 F 02/02 low grade temp / pm 100.1 EMESIS PM OF 02/02 Plan HIDA SCAN admitted general surgery and GI following abdominal ultrasound reviewed DVT prophylaxis full code home meds IV fluids when necessary Zofran when necessary prn narcotics prognosis guarded FOLLOW LFT'S, CBC, cbc in am, cont zosyn, add zyvox 46 MIN PT EXAM, chart review, > 50% of time spent with exam, chart review, pt care coordination Vitals Vitals Vital Signs Date Time Temp Pulse Resp B/P (MAP) Pulse Ox O2 Delivery O2 Flow Rate FiO2 02/05/19 08:35 109 138/79 02/05/19 08:24 20 Room Air 02/05/19 07:00 99.1 94 99.1 Physical Exam Physical Exam GENERAL: Propped up in bed, alert, NAD HEENT: Oral cavity clear NECK: Supple, no JVP, no lymphadenopathy. LUNGS: Clear. HEART: S1, S2 regular. ABDOMEN: Obese, soft, mildly tender, VIKY w/ sang drainage EXTREMITIES: No edema or cyanosis. SKIN: No rash NEUROLOGIC: Alert, oriented PIV General: Alert, Oriented X3, Cooperative, No acute distress Heart: Regular rate, Normal S1, Normal S2, No murmurs Lungs: Clear Abdomen: Soft, Other (drain more bloody, less bilious today) Extremities: No clubbing, No cyanosis Skin: Other (jaundice) Assessment and Plan Assessmemt and Plan Problems Medical Problems: (1) Common bile duct dilatation Status: Acute (2) Jaundice Status: Acute (3) Morbid obesity Status: Acute Comment Review of Relevant I have reviewed the following items gustavo (where applicable) has been applied. Labs Laboratory Tests Test 02/04/19 07:30 White Blood Count 13.4 x10^3/uL (4.0-11.0) Red Blood Count 2.52 x10^6/uL (4.30-5.70) Hemoglobin 7.9 g/dL (13.0-17.5) Hematocrit 24.0 % (39.0-53.0) Mean Corpuscular Volume 95 fL (79-100) Mean Corpuscular Hemoglobin 31 pg (25-35) Mean Corpuscular Hemoglobin Concent 33 g/dL (31-37) Red Cell Distribution Width 14.8 % (11.5-14.5) Platelet Count 400 x10^3/uL (140-400) Neutrophils (%) (Auto) 58 % (31-73) Lymphocytes (%) (Auto) 26 % (24-48) Monocytes (%) (Auto) 9 % (0-9) Eosinophils (%) (Auto) 6 % (0-3) Basophils (%) (Auto) 1 % (0-3) Neutrophils # (Auto) 7.8 x10^3uL (1.8-7.7) Lymphocytes # (Auto) 3.4 x10^3/uL (1.0-4.8) Monocytes # (Auto) 1.2 x10^3/uL (0.0-1.1) Eosinophils # (Auto) 0.8 x10^3/uL (0.0-0.7) Basophils # (Auto) 0.1 x10^3/uL (0.0-0.2) Sodium Level 137 mmol/L (136-145) Potassium Level 3.5 mmol/L (3.5-5.1) Chloride Level 99 mmol/L (98-107) Carbon Dioxide Level 32 mmol/L (21-32) Anion Gap 6 (6-14) Blood Urea Nitrogen 8 mg/dL (8-26) Creatinine 1.0 mg/dL (0.7-1.3) Estimated GFR (Cockcroft-Gault) 84.1 Glucose Level 153 mg/dL (70-99) Calcium Level 7.9 mg/dL (8.5-10.1) Microbiology 02/02/19 Blood Culture - Preliminary, Resulted NO GROWTH AFTER 2 DAYS Medications Current Medications Iohexol (Omnipaque 240 Mg/ml) 30 ml 1X ONCE PO Last administered on 01/27/19at 19:15; Start 01/27/19 at 19:15; Stop 01/27/19 at 19:16; Status DC Iohexol (Omnipaque 300 Mg/ml) 75 ml 1X ONCE IV Last administered on 01/27/19at 20:10; Start 01/27/19 at 19:15; Stop 01/27/19 at 19:16; Status DC Info (CONTRAST GIVEN -- Rx MONITORING) 1 each PRN DAILY PRN MC SEE COMMENTS; Start 01/27/19 at 19:30; Stop 01/29/19 at 19:29; Status DC Ketorolac Tromethamine (Toradol 30mg Vial) 30 mg 1X ONCE IV Last administered on 01/27/19at 22:02; Start 01/27/19 at 21:30; Stop 01/27/19 at 21:31; Status DC Sodium Chloride 1,000 ml @ 1,000 mls/hr 1X ONCE IV Last administered on 01/27/19at 21:58; Start 01/27/19 at 21:30; Stop 01/27/19 at 22:29; Status DC Sodium Chloride 1,000 ml @ 150 mls/hr Q6H40M IV Last administered on 01/28/19at 12:34; Start 01/27/19 at 22:00; Stop 01/28/19 at 21:59; Status DC Morphine Sulfate (Morphine Sulfate) 2 mg PRN Q2HR PRN IV PAIN; Start 01/28/19 at 08:15; Stop 01/28/19 at 08:23; Status DC Ketorolac Tromethamine (Toradol 30mg Vial) 20 mg PRN Q6HRS PRN IV MILD PAIN Last administered on 02/01/19at 16:29; Start 01/28/19 at 08:15; Stop 02/02/19 at 08:14; Status DC Fentanyl Citrate (Fentanyl 2ml Vial) 50 mcg PRN Q2HR PRN IV MODERATE PAIN, SEVERE PAIN Last administered on 01/29/19at 17:28; Start 01/28/19 at 08:30; Stop 01/29/19 at 18:44; Status DC Cefazolin Sodium/ Dextrose 50 ml @ 100 mls/hr 1X PREOP IV ; Start 01/28/19 at 15:45; Stop 01/29/19 at 10:14; Status DC Fentanyl Citrate (Fentanyl 2ml Vial) 25 mcg PRN Q5MIN PRN IV MILD PAIN; Start 01/29/19 at 07:00; Stop 01/29/19 at 19:00; Status DC Fentanyl Citrate (Fentanyl 2ml Vial) 50 mcg PRN Q5MIN PRN IV MODERATE TO SEVERE PAIN Last administered on 01/29/19 16:32; Start 01/29/19 at 07:00; Stop 01/29/19 at 19:00; Status DC Ringer's Solution 1,000 ml @ 30 mls/hr Q24H IV Last administered on 01/29/19 09:49; Start 01/29/19 at 07:00; Stop 01/29/19 at 18:59; Status DC Prochlorperazine Edisylate (Compazine) 5 mg PACU PRN PRN IV NAUSEA, MRX1; Start 01/29/19 at 07:00; Stop 01/29/19 at 19:00; Status DC Dextrose (Dextrose 50%-Water Syringe) 12.5 gm PRN Q15MIN PRN IV SEE COMMENTS; Start 01/28/19 at 19:45; Stop 01/30/19 at 13:49; Status DC Bupivacaine HCl/ Epinephrine Bitart (Sensorcain-Mpf Epi 0.5%-[id number]) 30 ml STK-MED ONCE .ROUTE Last administered on 01/29/19 12:35; Start 01/29/19 at 07:14; Stop 01/29/19 at 08:15; Status DC Cellulose (Surgicel Hemostat 2x3) 1 each STK-MED ONCE .ROUTE Last administered on 01/29/19 12:35; Start 01/29/19 at 07:14; Stop 01/29/19 at 08:15; Status DC Heparin Sodium (Porcine) (Heparin Sodium) 10,000 unit STK-MED ONCE .ROUTE Last administered on 01/29/19 12:35; Start 01/29/19 at 07:14; Stop 01/29/19 at 08:15; Status DC Iohexol (Omnipaque 300 Mg/ml) 50 ml STK-MED ONCE .ROUTE Last administered on 01/29/19 12:35; Start 01/29/19 at 07:14; Stop 01/29/19 at 08:16; Status DC Bisacodyl (Dulcolax Supp) 10 mg STK-MED ONCE .ROUTE Last administered on 4/28/19at 12:35; Start 01/29/19 at 07:15; Stop 01/29/19 at 08:16; Status DC Cefazolin Sodium/ Dextrose 50 ml @ 100 mls/hr 1X PREOP IV ; Start 01/29/19 at 10:15; Stop 01/29/19 at 18:56; Status DC Ondansetron HCl (Zofran) 4 mg STK-MED ONCE .ROUTE ; Start 01/29/19 at 11:34; Stop 01/29/19 at 11:35; Status DC Propofol 20 ml @ As Directed STK-MED ONCE IV ; Start 01/29/19 at 11:34; Stop 01/29/19 at 11:35; Status DC Lidocaine HCl (Lidocaine Pf 2% Vial) 5 ml STK-MED ONCE .ROUTE ; Start 01/29/19 at 11:34; Stop 01/29/19 at 11:35; Status DC Fentanyl Citrate (Fentanyl 2ml Vial) 100 mcg STK-MED ONCE .ROUTE ; Start 01/29/19 at 11:34; Stop 01/29/19 at 11:35; Status DC Dexamethasone Sodium Phosphate (Decadron) 4 mg STK-MED ONCE .ROUTE ; Start 01/29/19 at 11:35; Stop 01/29/19 at 11:36; Status DC Rocuronium Crook (Zemuron) 50 mg STK-MED ONCE .ROUTE ; Start 01/29/19 at 11:35; Stop 01/29/19 at 11:36; Status DC Succinylcholine Chloride (Anectine) 200 mg STK-MED ONCE .ROUTE ; Start 01/29/19 at 11:54; Stop 01/29/19 at 11:55; Status DC Cefazolin Sodium 100 ml @ As Directed STK-MED ONCE IV ; Start 01/29/19 at 12:06; Stop 01/29/19 at 12:07; Status DC Cefazolin Sodium 50 ml @ As Directed STK-MED ONCE IV ; Start 01/29/19 at 12:07; Stop 01/29/19 at 12:08; Status DC Cefazolin Sodium 3 gm/Dextrose 100 ml @ 200 mls/hr 1X ONCE IV Last administered on 01/29/19at 12:09; Start 01/29/19 at 13:00; Stop 01/29/19 at 13:29; Status DC Glycopyrrolate (Robinul) 1 mg STK-MED ONCE .ROUTE ; Start 01/29/19 at 12:57; Stop 01/29/19 at 12:58; Status DC Neostigmine Methylsulfate (Neostigmine Methylsulfate) 5 mg STK-MED ONCE .ROUTE ; Start 01/29/19 at 12:58; Stop 01/29/19 at 12:59; Status DC Rocuronium Crook (Zemuron) 50 mg STK-MED ONCE .ROUTE ; Start 01/29/19 at 13:07; Stop 01/29/19 at 13:08; Status DC Fentanyl Citrate (Fentanyl 2ml Vial) 100 mcg STK-MED ONCE .ROUTE ; Start 01/29/19 at 13:10; Stop 01/29/19 at 13:11; Status DC Iohexol (Omnipaque 300 Mg/ml) 50 ml STK-MED ONCE .ROUTE Last administered on 01/29/19at 12:35; Start 01/29/19 at 12:36; Stop 01/29/19 at 13:37; Status DC Cellulose (Surgicel Hemostat 4x8) 1 each STK-MED ONCE .ROUTE Last administered on 01/29/19at 12:35; Start 01/29/19 at 13:42; Stop 01/29/19 at 14:42; Status DC Cellulose (Surgicel Hemostat 4x8) 1 each STK-MED ONCE .ROUTE Last administered on 01/29/19at 12:35; Start 01/29/19 at 13:46; Stop 01/29/19 at 14:46; Status DC Ketorolac Tromethamine (Toradol For Or Only) 30 mg STK-MED ONCE INJ ; Start 01/29/19 at 14:59; Stop 01/29/19 at 15:00; Status DC Glycopyrrolate (Robinul) 1 mg STK-MED ONCE .ROUTE ; Start 01/29/19 at 15:13; St op 01/29/19 at 15:14; Status DC Neostigmine Methylsulfate (Neostigmine Methylsulfate) 5 mg STK-MED ONCE .ROUTE ; Start 01/29/19 at 15:13; Stop 01/29/19 at 15:14; Status DC Sevoflurane (Ultane) 90 ml STK-MED ONCE IH ; Start 01/29/19 at 15:20; Stop 01/29/19 at 15:21; Status DC Fentanyl Citrate (Fentanyl 2ml Vial) 100 mcg STK-MED ONCE .ROUTE ; Start 01/29/19 at 15:32; Stop 01/29/19 at 15:33; Status DC Fentanyl Citrate (Fentanyl 2ml Vial) 100 mcg STK-MED ONCE .ROUTE ; Start 01/29/19 at 15:48; Stop 01/29/19 at 15:49; Status DC Sodium Chloride (Normal Saline Flush) 3 ml QSHIFT PRN IV AFTER MEDS AND BLOOD DRAWS; Start 01/29/19 at 16:00 Ringer's Solution 1,000 ml @ 100 mls/hr Q10H IV Last administered on 01/31/19at 16:36; Start 01/29/19 at 15:46; Stop 02/01/19 at 01:42; Status DC Dextrose (Dextrose 50%-Water Syringe) 12.5 gm PRN Q15MIN PRN IV SEE COMMENTS; Start 01/29/19 at 16:00 Acetaminophen/ Hydrocodone Bitart (Lortab 5/325) 1 tab PRN Q4HRS PRN PO MILD PAIN Last administered on 01/29/19at 17:28; Start 01/29/19 at 16:00; Stop 01/29/19 at 18:45; Status DC Docusate Sodium (Colace) 100 mg BID PO Last administered on 02/05/19at 08:22; S tart 01/29/19 at 21:00 Ondansetron HCl (Zofran) 4 mg PRN Q6HRS PRN IV NAUESA, 1ST CHOICE Last administered on 02/03/19at 15:27; Start 01/29/19 at 16:00 Famotidine (Pepcid Vial) 20 mg 1X ONCE IVP Last administered on 01/29/19at 16:14; Start 01/29/19 at 16:15; Stop 01/29/19 at 16:16; Status DC Pantoprazole Sodium (Protonix) 40 mg DAILYAC PO Last administered on 02/05/19at 06:09; Start 01/30/19 at 07:30 Fentanyl Citrate (Fentanyl 2ml Vial) 75 mcg PRN Q2HR PRN IV SEVERE PAIN Last administered on 02/01/19 00:09; Start 01/29/19 at 18:45; Stop 02/01/19 at 00:13; Status DC Acetaminophen/ Hydrocodone Bitart (Lortab 10/325) 1 tab PRN Q6HRS PRN PO MODERATE PAIN Last administered on 01/31/19 18:44; Start 01/29/19 at 18:45; Stop 01/31/19 at 23:58; Status DC Cefazolin Sodium/ Dextrose (Ancef 2gm Premix) 2 gm STK-MED ONCE IV ; Start 01/28/19 at 11:00; Stop 01/30/19 at 07:38; Status DC Oxycodone/ Acetaminophen (Percocet 10/325) 1 tab PRN Q4HRS PRN PO severe pain Last administered on 02/05/19 08:24; Start 01/31/19 at 20:45 Fentanyl Citrate (Fentanyl 2ml Vial) 75 mcg PRN Q4HRS PRN IV SEVERE PAIN Last administered on 02/05/19 06:09; Start 02/01/19 at 00:15 Atorvastatin Calcium (Lipitor) 20 mg QHS PO Last administered on 02/04/19 22:19; Start 02/01/19 at 21:00 Buspirone HCl (Buspar) 30 mg BID PO Last administered on 02/04/19 22:21; Start 02/01/19 at 21:00 Fluoxetine HCl (PROzac) 40 mg QHS PO Last administered on 02/04/19 22:20; Start 02/01/19 at 21:00 Haloperidol (Haldol) 10 mg DAILY PO Last administered on 02/05/19 08:22; Start 02/02/19 at 09:00 Lisinopril (Prinivil) 2.5 mg DAILY PO Last administered on 02/05/19 08:35; Start 02/02/19 at 09:00 Metformin HCl (Glucophage) 500 mg BIDWMEALS PO Last administered on 02/05/19 08:23; Start 02/01/19 at 18:30 Mirtazapine (Remeron) 45 mg QHS PO Last administered on 02/04/19 22:20; Start 02/01/19 at 21:00 Olanzapine (ZyPREXA) 15 mg QHS PO Last administered on 02/04/19 22:19; Start 02/01/19 at 21:00 Pantoprazole Sodium (Protonix) 40 mg DAILYAC PO ; Start 02/02/19 at 07:30; Stop 02/04/19 at 07:22; Status DC Polyethylene Glycol (miraLAX PACKET) 17 gm BID PO Last administered on 02/05/19 08:23; Start 02/02/19 at 21:00 Bisacodyl (Dulcolax Tab) 5 mg PRN DAILY PRN PO CONSTIPATION Last administered on 02/02/19 12:13; Start 02/02/19 at 11:45 Piperacillin Sod/ Tazobactam Sod 3.375 gm/Sodium Chloride 50 ml @ 100 mls/hr Q6HRS IV Last administered on 02/05/19 06:09; Start 02/02/19 at 14:00 Enoxaparin Sodium (Lovenox 40mg Syringe) 40 mg Q12HR SQ Last administered on 02/05/19 08:22; Start 02/02/19 at 14:00 Linezolid/Dextrose 300 ml @ 300 mls/hr Q12HR IV Last administered on 02/05/19 08:23; Start 02/03/19 at 11:00 Lactobacillus Rhamnosus (Culturelle) 1 cap BID PO Last administered on 02/05/19 08:22; Start 02/04/19 at 21:00 Acetaminophen (Tylenol) 650 mg PRN Q6HRS PRN PO FEVER Last administered on 02/05/19 00:14; Start 02/04/19 at 19:30 Micafungin Sodium 100 mg/Dextrose 100 ml @ 100 mls/hr Q24H IV Last administered on 02/05/19 02:41; Start 02/04/19 at 22:30 Active Scripts Active Reported Buspirone Hcl 30 Mg Tablet 1 Tab PO BID Protonix (Pantoprazole Sodium) 20 Mg Tablet.dr 2 Tab PO DAILY Zantac (Ranitidine Hcl) 150 Mg Tablet 1 Tab PO HS Tums (Calcium Carbonate) 200 Mg Tab.chew 200 Mg PO TID Zyprexa (Olanzapine) 15 Mg Tablet 1 Tab PO QHS Remeron (Mirtazapine) 15 Mg Tablet 3 Tab PO QHS Lisinopril 2.5 Mg Tablet 1 Tab PO DAILY Atorvastatin Calcium 20 Mg Tablet 1 Tab PO DAILY Haloperidol 10 Mg Tablet 10 Mg PO DAILY Prozac (Fluoxetine Hcl) 40 Mg Capsule 1 Cap PO HS Metformin Hcl 500 Mg Tablet 500 Mg PO BIDWMEALS Vitals/I & O Vital Sign - Last 24 Hours 02/04/19 02/04/19 02/04/19 02/04/19 10:16 11:00 12:43 14:09 Temp 98.4 98.4 Pulse 98 Resp 20 18 20 20 B/P (MAP) 105/69 (81) Pulse Ox 94 O2 Delivery Room Air Room Air Room Air Room Air 02/04/19 02/04/19 02/04/19 02/04/19 14:39 15:00 15:58 16:58 Temp 100.0 100.0 Pulse 99 Resp 18 20 20 B/P (MAP) 142/81 (101) Pulse Ox 94 94 O2 Delivery Room Air Room Air Room Air 02/04/19 02/04/19 02/04/19 02/04/19 18:01 18:31 19:27 20:20 Temp 98.6 98.6 Pulse 110 Resp 18 B/P (MAP) 141/78 (99) Pulse Ox 98 O2 Delivery Room Air Room Air Room Air Room Air 02/04/19 02/05/19 02/05/19 02/05/19 23:00 02:41 03:28 07:00 Temp 99.1 99.0 99.1 99.1 99.0 99.1 Pulse 120 103 109 Resp 18 18 18 B/P (MAP) 155/84 (107) 133/75 (94) 138/79 (98) Pulse Ox 93 92 94 O2 Delivery Room Air Room Air Room Air Room Air 02/05/19 02/05/19 08:24 08:35 Pulse 109 Resp 20 B/P (MAP) 138/79 O2 Delivery Room Air Intake and Output 02/04/19 02/04/19 02/05/19 15:00 23:00 07:00 Intake Total 400 ml 2980 ml Output Total 400 ml 430 ml Balance 0 ml -430 ml 2980 ml BERNARDINO COX MD February 05, 2019 10:09
[2019-02-05] MEDS: busPIRone 10 MG TABLET. PO SCH ×2 (10:22→20:28)
[2019-02-05 11:00] VITALS: BP 126/75
--- NOTE | 2019-02-05 14:41 | PDOC ---
PROGRESS NOTES Subjective Subjective feels well Objective Objective Vital Signs Date Time Temp Pulse Resp B/P (MAP) Pulse Ox O2 Delivery O2 Flow Rate FiO2 02/05/19 14:38 96 Room Air 02/05/19 12:19 20 02/05/19 11:00 97.9 96 126/75 (92) 97.9 02/02/19 06:03 2.0 Intake and Output 02/05/19 06:59 Intake Total 3380 ml Output Total 830 ml Balance 2550 ml Intake Oral 3380 ml Output Urine Total 800 ml Drainage Total 30 ml # Voids 6 Physical Exam Abdomen: Soft (VIKY with minimal dark serosang fluid, ?bilious) Assessment Assessment Problems Medical Problems: (1) Common bile duct dilatation Status: Acute (2) Jaundice Status: Acute (3) Morbid obesity Status: Acute Plan Plan of Care HIDA done, no result yet; clinically doing well Comment Review of Relevant I have reviewed the following items gustavo (where applicable) has been applied. Labs Laboratory Tests Test 02/04/19 07:30 White Blood Count 13.4 x10^3/uL (4.0-11.0) Red Blood Count 2.52 x10^6/uL (4.30-5.70) Hemoglobin 7.9 g/dL (13.0-17.5) Hematocrit 24.0 % (39.0-53.0) Mean Corpuscular Volume 95 fL (79-100) Mean Corpuscular Hemoglobin 31 pg (25-35) Mean Corpuscular Hemoglobin Concent 33 g/dL (31-37) Red Cell Distribution Width 14.8 % (11.5-14.5) Platelet Count 400 x10^3/uL (140-400) Neutrophils (%) (Auto) 58 % (31-73) Lymphocytes (%) (Auto) 26 % (24-48) Monocytes (%) (Auto) 9 % (0-9) Eosinophils (%) (Auto) 6 % (0-3) Basophils (%) (Auto) 1 % (0-3) Neutrophils # (Auto) 7.8 x10^3uL (1.8-7.7) Lymphocytes # (Auto) 3.4 x10^3/uL (1.0-4.8) Monocytes # (Auto) 1.2 x10^3/uL (0.0-1.1) Eosinophils # (Auto) 0.8 x10^3/uL (0.0-0.7) Basophils # (Auto) 0.1 x10^3/uL (0.0-0.2) Sodium Level 137 mmol/L (136-145) Potassium Level 3.5 mmol/L (3.5-5.1) Chloride Level 99 mmol/L (98-107) Carbon Dioxide Level 32 mmol/L (21-32) Anion Gap 6 (6-14) Blood Urea Nitrogen 8 mg/dL (8-26) Creatinine 1.0 mg/dL (0.7-1.3) Estimated GFR (Cockcroft-Gault) 84.1 Glucose Level 153 mg/dL (70-99) Calcium Level 7.9 mg/dL (8.5-10.1) Microbiology 02/02/19 Blood Culture - Preliminary, Resulted NO GROWTH AFTER 2 DAYS Medications Current Medications Iohexol (Omnipaque 240 Mg/ml) 30 ml 1X ONCE PO Last administered on 01/27/19at 19:15; Start 01/27/19 at 19:15; Stop 01/27/19 at 19:16; Status DC Iohexol (Omnipaque 300 Mg/ml) 75 ml 1X ONCE IV Last administered on 01/27/19at 20:10; Start 01/27/19 at 19:15; Stop 01/27/19 at 19:16; Status DC Info (CONTRAST GIVEN -- Rx MONITORING) 1 each PRN DAILY PRN MC SEE COMMENTS; Start 01/27/19 at 19:30; Stop 01/29/19 at 19:29; Status DC Ketorolac Tromethamine (Toradol 30mg Vial) 30 mg 1X ONCE IV Last administered on 01/27/19at 22:02; Start 01/27/19 at 21:30; Stop 01/27/19 at 21:31; Status DC Sodium Chloride 1,000 ml @ 1,000 mls/hr 1X ONCE IV Last administered on 01/27/19at 21:58; Start 01/27/19 at 21:30; Stop 01/27/19 at 22:29; Status DC Sodium Chloride 1,000 ml @ 150 mls/hr Q6H40M IV Last administered on 01/28/19at 12:34; Start 01/27/19 at 22:00; Stop 01/28/19 at 21:59; Status DC Morphine Sulfate (Morphine Sulfate) 2 mg PRN Q2HR PRN IV PAIN; Start 01/28/19 at 08:15; Stop 01/28/19 at 08:23; Status DC Ketorolac Tromethamine (Toradol 30mg Vial) 20 mg PRN Q6HRS PRN IV MILD PAIN Last administered on 02/01/19at 16:29; Start 01/28/19 at 08:15; Stop 02/02/19 at 08:14; Status DC Fentanyl Citrate (Fentanyl 2ml Vial) 50 mcg PRN Q2HR PRN IV MODERATE PAIN, SEVERE PAIN Last administered on 01/29/19at 17:28; Start 01/28/19 at 08:30; Stop 01/29/19 at 18:44; Status DC Cefazolin Sodium/ Dextrose 50 ml @ 100 mls/hr 1X PREOP IV ; Start 01/28/19 at 15:45; Stop 01/29/19 at 10:14; Status DC Fentanyl Citrate (Fentanyl 2ml Vial) 25 mcg PRN Q5MIN PRN IV MILD PAIN; Start 01/29/19 at 07:00; Stop 01/29/19 at 19:00; Status DC Fentanyl Citrate (Fentanyl 2ml Vial) 50 mcg PRN Q5MIN PRN IV MODERATE TO SEVERE PAIN Last administered on 01/29/19at 16:32; Start 01/29/19 at 07:00; Stop 01/29/19 at 19:00; Status DC Ringer's Solution 1,000 ml @ 30 mls/hr Q24H IV Last administered on 01/29/19at 09:49; Start 01/29/19 at 07:00; Stop 01/29/19 at 18:59; Status DC Prochlorperazine Edisylate (Compazine) 5 mg PACU PRN PRN IV NAUSEA, MRX1; Start 01/29/19 at 07:00; Stop 01/29/19 at 19:00; Status DC Dextrose (Dextrose 50%-Water Syringe) 12.5 gm PRN Q15MIN PRN IV SEE COMMENTS; Start 01/28/19 at 19:45; Stop 01/30/19 at 13:49; Status DC Bupivacaine HCl/ Epinephrine Bitart (Sensorcain-Mpf Epi 0.5%-[id number]) 30 ml STK-MED ONCE .ROUTE Last administered on 01/29/19 12:35; Start 01/29/19 at 07:14; Stop 01/29/19 at 08:15; Status DC Cellulose (Surgicel Hemostat 2x3) 1 each STK-MED ONCE .ROUTE Last administered on 01/29/19 12:35; Start 01/29/19 at 07:14; Stop 01/29/19 at 08:15; Status DC Heparin Sodium (Porcine) (Heparin Sodium) 10,000 unit STK-MED ONCE .ROUTE Last administered on 01/29/19at 12:35; Start 01/29/19 at 07:14; Stop 01/29/19 at 08:15; Status DC Iohexol (Omnipaque 300 Mg/ml) 50 ml STK-MED ONCE .ROUTE Last administered on 01/29/19 12:35; Start 01/29/19 at 07:14; Stop 01/29/19 at 08:16; Status DC Bisacodyl (Dulcolax Supp) 10 mg STK-MED ONCE .ROUTE Last administered on 01/29/19 12:35; Start 01/29/19 at 07:15; Stop 01/29/19 at 08:16; Status DC Cefazolin Sodium/ Dextrose 50 ml @ 100 mls/hr 1X PREOP IV ; Start 01/29/19 at 10:15; Stop 01/29/19 at 18:56; Status DC Ondansetron HCl (Zofran) 4 mg STK-MED ONCE .ROUTE ; Start 01/29/19 at 11:34; Stop 01/29/19 at 11:35; Status DC Propofol 20 ml @ As Directed STK-MED ONCE IV ; Start 01/29/19 at 11:34; Stop 01/29/19 at 11:35; Status DC Lidocaine HCl (Lidocaine Pf 2% Vial) 5 ml STK-MED ONCE .ROUTE ; Start 01/29/19 at 11:34; Stop 01/29/19 at 11:35; Status DC Fentanyl Citrate (Fentanyl 2ml Vial) 100 mcg STK-MED ONCE .ROUTE ; Start 01/29/19 at 11:34; Stop 01/29/19 at 11:35; Status DC Dexamethasone Sodium Phosphate (Decadron) 4 mg STK-MED ONCE .ROUTE ; Start 01/29/19 at 11:35; Stop 01/29/19 at 11:36; Status DC Rocuronium Sayre (Zemuron) 50 mg STK-MED ONCE .ROUTE ; Start 01/29/19 at 11:35; Stop 01/29/19 at 11:36; Status DC Succinylcholine Chloride (Anectine) 200 mg STK-MED ONCE .ROUTE ; Start 01/29/19 at 11:54; Stop 01/29/19 at 11:55; Status DC Cefazolin Sodium 100 ml @ As Directed STK-MED ONCE IV ; Start 01/29/19 at 12:06; Stop 01/29/19 at 12:07; Status DC Cefazolin Sodium 50 ml @ As Directed STK-MED ONCE IV ; Start 01/29/19 at 12:07; Stop 01/29/19 at 12:08; Status DC Cefazolin Sodium 3 gm/Dextrose 100 ml @ 200 mls/hr 1X ONCE IV Last administered on 01/29/19at 12:09; Start 01/29/19 at 13:00; Stop 01/29/19 at 13:29; Status DC Glycopyrrolate (Robinul) 1 mg STK-MED ONCE .ROUTE ; Start 01/29/19 at 12:57; Stop 01/29/19 at 12:58; Status DC Neostigmine Methylsulfate (Neostigmine Methylsulfate) 5 mg STK-MED ONCE .ROUTE ; Start 01/29/19 at 12:58; Stop 01/29/19 at 12:59; Status DC Rocuronium Sayre (Zemuron) 50 mg STK-MED ONCE .ROUTE ; Start 01/29/19 at 13:07; Stop 01/29/19 at 13:08; Status DC Fentanyl Citrate (Fentanyl 2ml Vial) 100 mcg STK-MED ONCE .ROUTE ; Start 01/29/19 at 13:10; Stop 01/29/19 at 13:11; Status DC Iohexol (Omnipaque 300 Mg/ml) 50 ml STK-MED ONCE .ROUTE Last administered on 01/29/19at 12:35; Start 01/29/19 at 12:36; Stop 01/29/19 at 13:37; Status DC Cellulose (Surgicel Hemostat 4x8) 1 each STK-MED ONCE .ROUTE Last administered on 01/29/19at 12:35; Start 01/29/19 at 13:42; Stop 01/29/19 at 14:42; Status DC Cellulose (Surgicel Hemostat 4x8) 1 each STK-MED ONCE .ROUTE Last administered on 01/29/19at 12:35; Start 01/29/19 at 13:46; Stop 01/29/19 at 14:46; Status DC Ketorolac Tromethamine (Toradol For Or Only) 30 mg STK-MED ONCE INJ ; Start 01/29/19 at 14:59; Stop 01/29/19 at 15:00; Status DC Glycopyrrolate (Robinul) 1 mg STK-MED ONCE .ROUTE ; Start 01/29/19 at 15:13; S top 01/29/19 at 15:14; Status DC Neostigmine Methylsulfate (Neostigmine Methylsulfate) 5 mg STK-MED ONCE .ROUTE ; Start 01/29/19 at 15:13; Stop 01/29/19 at 15:14; Status DC Sevoflurane (Ultane) 90 ml STK-MED ONCE IH ; Start 01/29/19 at 15:20; Stop 01/29/19 at 15:21; Status DC Fentanyl Citrate (Fentanyl 2ml Vial) 100 mcg STK-MED ONCE .ROUTE ; Start 01/29/19 at 15:32; Stop 01/29/19 at 15:33; Status DC Fentanyl Citrate (Fentanyl 2ml Vial) 100 mcg STK-MED ONCE .ROUTE ; Start 01/29/19 at 15:48; Stop 01/29/19 at 15:49; Status DC Sodium Chloride (Normal Saline Flush) 3 ml QSHIFT PRN IV AFTER MEDS AND BLOOD DRAWS; Start 01/29/19 at 16:00 Ringer's Solution 1,000 ml @ 100 mls/hr Q10H IV Last administered on 01/31/19at 16:36; Start 01/29/19 at 15:46; Stop 02/01/19 at 01:42; Status DC Dextrose (Dextrose 50%-Water Syringe) 12.5 gm PRN Q15MIN PRN IV SEE COMMENTS; Start 01/29/19 at 16:00 Acetaminophen/ Hydrocodone Bitart (Lortab 5/325) 1 tab PRN Q4HRS PRN PO MILD PAIN Last administered on 01/29/19 17:28; Start 01/29/19 at 16:00; Stop 01/29/19 at 18:45; Status DC Docusate Sodium (Colace) 100 mg BID PO Last administered on 02/05/19 08:22; Start 01/29/19 at 21:00 Ondansetron HCl (Zofran) 4 mg PRN Q6HRS PRN IV NAUESA, 1ST CHOICE Last administered on 02/03/19 15:27; Start 01/29/19 at 16:00 Famotidine (Pepcid Vial) 20 mg 1X ONCE IVP Last administered on 01/29/19 16:14; Start 01/29/19 at 16:15; Stop 01/29/19 at 16:16; Status DC Pantoprazole Sodium (Protonix) 40 mg DAILYAC PO Last administered on 02/05/19 06:09; Start 01/30/19 at 07:30 Fentanyl Citrate (Fentanyl 2ml Vial) 75 mcg PRN Q2HR PRN IV SEVERE PAIN Last administered on 02/01/19 00:09; Start 01/29/19 at 18:45; Stop 02/01/19 at 00:13; Status DC Acetaminophen/ Hydrocodone Bitart (Lortab 10/325) 1 tab PRN Q6HRS PRN PO MODERATE PAIN Last administered on 01/31/19 18:44; Start 01/29/19 at 18:45; Stop 01/31/19 at 23:58; Status DC Cefazolin Sodium/ Dextrose (Ancef 2gm Premix) 2 gm STK-MED ONCE IV ; Start 01/28/19 at 11:00; Stop 01/30/19 at 07:38; Status DC Oxycodone/ Acetaminophen (Percocet 10/325) 1 tab PRN Q4HRS PRN PO severe pain Last administered on 02/05/19 12:19; Start 01/31/19 at 20:45 Fentanyl Citrate (Fentanyl 2ml Vial) 75 mcg PRN Q4HRS PRN IV SEVERE PAIN Last administered on 02/05/19 13:59; Start 02/01/19 at 00:15 Atorvastatin Calcium (Lipitor) 20 mg QHS PO Last administered on 02/04/19 22:19; Start 02/01/19 at 21:00 Buspirone HCl (Buspar) 30 mg BID PO Last administered on 02/05/19 10:22; Start 02/01/19 at 21:00 Fluoxetine HCl (PROzac) 40 mg QHS PO Last administered on 02/04/19 22:20; Start 02/01/19 at 21:00 Haloperidol (Haldol) 10 mg DAILY PO Last administered on 02/05/19 08:22; Start 02/02/19 at 09:00 Lisinopril (Prinivil) 2.5 mg DAILY PO Last administered on 02/05/19 08:35; Start 02/02/19 at 09:00 Metformin HCl (Glucophage) 500 mg BIDWMEALS PO Last administered on 02/05/19 08:23; Start 02/01/19 at 18:30 Mirtazapine (Remeron) 45 mg QHS PO Last administered on 02/04/19 22:20; Start 02/01/19 at 21:00 Olanzapine (ZyPREXA) 15 mg QHS PO Last administered on 02/04/19 22:19; Start 02/01/19 at 21:00 Pantoprazole Sodium (Protonix) 40 mg DAILYAC PO ; Start 02/02/19 at 07:30; Stop 02/04/19 at 07:22; Status DC Polyethylene Glycol (miraLAX PACKET) 17 gm BID PO Last administered on 02/05/19 08:23; Start 02/02/19 at 21:00 Bisacodyl (Dulcolax Tab) 5 mg PRN DAILY PRN PO CONSTIPATION Last administered on 02/02/19 12:13; Start 02/02/19 at 11:45 Piperacillin Sod/ Tazobactam Sod 3.375 gm/Sodium Chloride 50 ml @ 100 mls/hr Q6HRS IV Last administered on 02/05/19 12:20; Start 02/02/19 at 14:00 Enoxaparin Sodium (Lovenox 40mg Syringe) 40 mg Q12HR SQ Last administered on 02/05/19 08:22; Start 02/02/19 at 14:00 Linezolid/Dextrose 300 ml @ 300 mls/hr Q12HR IV Last administered on 02/05/19 08:23; Start 02/03/19 at 11:00 Lactobacillus Rhamnosus (Culturelle) 1 cap BID PO Last administered on 02/05/19 08:22; Start 02/04/19 at 21:00 Acetaminophen (Tylenol) 650 mg PRN Q6HRS PRN PO FEVER Last administered on 02/05/19at 00:14; Start 02/04/19 at 19:30 Micafungin Sodium 100 mg/Dextrose 100 ml @ 100 mls/hr Q24H IV Last administered on 02/05/19at 02:41; Start 02/04/19 at 22:30 Active Scripts Active Reported Buspirone Hcl 30 Mg Tablet 1 Tab PO BID Protonix (Pantoprazole Sodium) 20 Mg Tablet.dr 2 Tab PO DAILY Zantac (Ranitidine Hcl) 150 Mg Tablet 1 Tab PO HS Tums (Calcium Carbonate) 200 Mg Tab.chew 200 Mg PO TID Zyprexa (Olanzapine) 15 Mg Tablet 1 Tab PO QHS Remeron (Mirtazapine) 15 Mg Tablet 3 Tab PO QHS Lisinopril 2.5 Mg Tablet 1 Tab PO DAILY Atorvastatin Calcium 20 Mg Tablet 1 Tab PO DAILY Haloperidol 10 Mg Tablet 10 Mg PO DAILY Prozac (Fluoxetine Hcl) 40 Mg Capsule 1 Cap PO HS Metformin Hcl 500 Mg Tablet 500 Mg PO BIDWMEALS Vitals/I & O Vital Sign - Last 24 Hours 02/04/19 02/04/19 02/04/19 02/04/19 15:00 15:58 16:58 18:01 Temp 100.0 100.0 Pulse 99 Resp 18 20 20 20 B/P (MAP) 142/81 (101) Pulse Ox 94 O2 Delivery Room Air Room Air Room Air 02/04/19 02/04/19 02/04/19 02/04/19 18:31 19:27 20:20 23:00 Temp 98.6 99.1 98.6 99.1 Pulse 110 120 Resp 20 18 18 B/P (MAP) 141/78 (99) 155/84 (107) Pulse Ox 98 93 O2 Delivery Room Air Room Air Room Air 02/05/19 02/05/19 02/05/19 02/05/19 02:41 03:28 07:00 08:00 Temp 99.0 99.1 99.0 99.1 Pulse 103 109 Resp 18 18 B/P (MAP) 133/75 (94) 138/79 (98) Pulse Ox 92 94 O2 Delivery Room Air Room Air Room Air Room Air 02/05/19 02/05/19 02/05/19 02/05/19 08:24 08:35 10:22 11:00 Temp 97.9 97.9 Pulse 109 96 Resp 20 20 18 B/P (MAP) 138/79 126/75 (92) Pulse Ox 96 O2 Delivery Room Air Room Air Room Air 02/05/19 02/05/19 02/05/19 02/05/19 12:19 13:18 13:59 14:38 Resp 20 Pulse Ox 96 96 96 O2 Delivery Room Air Room Air Room Air Room Air Intake and Output 02/04/19 02/04/19 02/05/19 14:59 22:59 06:59 Intake Total 400 ml 2980 ml Output Total 400 ml 430 ml Balance 0 ml -430 ml 2980 ml NALDO DAS MD February 05, 2019 14:41
[2019-02-05 15:00] VITALS: BP 133/80
--- NOTE | 2019-02-05 16:49 | PDOC ---
Infectious Disease Note Subjective Subjective abdomen feels sore Low-grade fever Tmax 100.0 yesterday Denies N/V/D/chills ROS ROS per HPI Vital Sign Vital Signs Vital Signs Date Time Temp Pulse Resp B/P (MAP) Pulse Ox O2 Delivery O2 Flow Rate FiO2 02/05/19 16:22 97 Room Air 02/05/19 15:00 97.9 104 16 133/80 (97) 97.9 Physical Exam PHYSICAL EXAM GENERAL: Propped up in bed, alert, NAD HEENT: Oral cavity clear NECK: Supple, no JVP, no lymphadenopathy. LUNGS: Clear. HEART: S1, S2 regular. ABDOMEN: Obese, soft, mildly tender, VIKY w/ sang drainage EXTREMITIES: No edema or cyanosis. SKIN: No rash. Multiple tattoos NEUROLOGIC: Alert, oriented PIV Labs Micro Microbiology 02/02/19 Blood Culture - Preliminary, Resulted NO GROWTH AFTER 3 DAY Objective Assessment Fever Leukocytosis, improving Suspected bile leak. Status post cholecystectomy. Obesity. Hyperbilirubinemia. Plan Plan of Care cont Zyvox, Zosyn and micafungin HIDA scan pending am labs Monitor temp and VIKY drainage BC repeated Pt seen and examined D/W [employer] agree with above A/P F/U BC PEDRO WEEMS APRN February 05, 2019 16:49 RICCO VALDEZ MD February 05, 2019 17:25
[2019-02-05 19:15] VITALS: BP 119/75
[2019-02-05] MEDS: ATORVASTATIN CALCIUM 20 MG TABLET PO SCH (20:28)
[2019-02-05] MEDS: MIRTAZAPINE 15 MG TABLET PO SCH (20:29)
[2019-02-05] MEDS: OLANZapine 5 MG TABLET PO SCH (20:29)
[2019-02-05] MEDS: FLUoxetine HCL 20 MG CAPSULE PO SCH (20:29)
[2019-02-05 23:15] VITALS: BP 124/67
[2019-02-06] MEDS: PIPERACILLIN/TAZOBACTAM 3.375 GM in IV NORMAL SALINE 50ML 50 ML IV SCH ×4 (00:29→18:37)
[2019-02-06] MEDS: oxyCODONE/APAP 10/325 1 TAB TABLET PO PRN ×6 (00:29→23:06)
[2019-02-06] MEDS: fentaNYL PF VIAL 100 MCG/2 ML VIAL IV PRN ×5 (02:55→21:19)
[2019-02-06 03:21] VITALS: BP 145/79
[2019-02-06 06:55] LABS: BASO # 0.1 x10^3/uL (0.0-0.2); BASO % 1 % (0-3); EOS # 0.7 x10^3/uL (0.0-0.7); EOS % 6 % (0-3); HEMATOCRIT 24.5 % (39.0-53.0); LYMPH # 3.1 x10^3/uL (1.0-4.8); LYMPH % 24 % (24-48); MEAN CORPUSCULAR HEMOGLOBIN 31 pg (25-35); MEAN CORPUSCULAR HGB CONC 33 g/dL (31-37); MEAN CORPUSCULAR VOLUME 96 fL (79-100); MONO # 1.5 x10^3/uL (0.0-1.1); MONO % 12 % (0-9); NEUT # 7.6 x10^3uL (1.8-7.7); NEUT % 58 % (31-73); PLATELET COUNT 476 x10^3/uL (140-400); RED BLOOD COUNT 2.55 x10^6/uL (4.30-5.70); RED CELL DISTRIBUTION WIDTH 15.4 % (11.5-14.5); WHITE BLOOD COUNT 13.1 x10^3/uL (4.0-11.0)
[2019-02-06 07:00] VITALS: BP 133/76
[2019-02-06 07:05] LABS: ALBUMIN 1.9 g/dL (3.4-5.0); ALBUMIN/GLOBULIN RATIO 0.4 (1.0-1.7); CALCIUM 8.3 mg/dL (8.5-10.1); CREATININE 1.1 mg/dL (0.7-1.3); GFR 75.3; POTASSIUM 3.8 mmol/L (3.5-5.1); TOTAL BILIRUBIN 1.1 mg/dL (0.2-1.0); TOTAL PROTEIN 6.9 g/dL (6.4-8.2)
--- NOTE | 2019-02-06 07:30 | NUR ---
Pts DESIREE drain has put out considerable amount on security shift supervisor total for DESIREE out on shift was 590. In the last hour patient has put out 240cc alone....Pt called staff back stating it was leaking. Upon checking, dressing was saturated with green bile and desiree bulb was full. Dressing changed and gown changed, pt back to bed.
[2019-02-06] MEDS: POLYETHYLENE GLYCOL 3350 17 GM PACKET. PO SCH ×2 (09:40→21:09)
--- NOTE | 2019-02-06 09:40 | PDOC ---
Subjective: Subjective: "I'm really sweaty." Pain worse. Tolerating PO, stooling. Objective: Vital Signs: Vital Signs Date Time Temp Pulse Resp B/P (MAP) Pulse Ox O2 Delivery O2 Flow Rate FiO2 02/06/19 08:25 Room Air 02/06/19 07:00 99.3 103 16 133/76 (95) 94 99.3 02/06/19 02:55 2.0 Labs: Laboratory Tests Test 02/06/19 05:20 White Blood Count 13.1 x10^3/uL Red Blood Count 2.55 x10^6/uL Hemoglobin 8.0 g/dL Hematocrit 24.5 % Mean Corpuscular Volume 96 fL Mean Corpuscular Hemoglobin 31 pg Mean Corpuscular Hemoglobin Concent 33 g/dL Red Cell Distribution Width 15.4 % Platelet Count 476 x10^3/uL Neutrophils (%) (Auto) 58 % Lymphocytes (%) (Auto) 24 % Monocytes (%) (Auto) 12 % Eosinophils (%) (Auto) 6 % Basophils (%) (Auto) 1 % Neutrophils # (Auto) 7.6 x10^3uL Lymphocytes # (Auto) 3.1 x10^3/uL Monocytes # (Auto) 1.5 x10^3/uL Eosinophils # (Auto) 0.7 x10^3/uL Basophils # (Auto) 0.1 x10^3/uL Sodium Level 137 mmol/L Potassium Level 3.8 mmol/L Chloride Level 100 mmol/L Carbon Dioxide Level 32 mmol/L Anion Gap 5 Blood Urea Nitrogen 6 mg/dL Creatinine 1.1 mg/dL Estimated GFR (Cockcroft-Gault) 75.3 BUN/Creatinine Ratio 5 Glucose Level 147 mg/dL Calcium Level 8.3 mg/dL Total Bilirubin 1.1 mg/dL Aspartate Amino Transf (AST/SGOT) 63 U/L Alanine Aminotransferase (ALT/SGPT) 61 U/L Alkaline Phosphatase 182 U/L Total Protein 6.9 g/dL Albumin 1.9 g/dL Albumin/Globulin Ratio 0.4 BLOOD CULTURE Preliminary NO GROWTH AFTER 1 DAY Imaging: CT A/P 02/02 Impression: Recent cholecystectomy with small amount of blood products and gas noted in the gallbladder fossa as described. Small amount of blood products in the paracolic gutter and pelvis, also noted. HIDA 02/03 pending PE: GEN: NAD LUNGS: CTAB HEART: tachycardic ABD: more tenderness to right, drain looks bilious SKIN: clammy NEURO/PSYCH: A & O 3 A/P: S/p cholecystectomy and CBDE Elevated LFTs - still improving Leukocytosis - better -- Will review w/ Dr. Valdes. DARREL MUELLER February 06, 2019 09:40
[2019-02-06] MEDS: ENOXAPARIN 40 MG/0.4 ML SYRINGE. SQ SCH ×2 (09:41→21:17)
[2019-02-06] MEDS: PANTOPRAZOLE 40 MG TABLET.DR. PO SCH (09:42)
[2019-02-06] MEDS: DOCUSATE SODIUM 100 MG CAPSULE. PO SCH ×2 (09:42→21:09)
[2019-02-06] MEDS: HALOPERIDOL 5 MG TABLET. PO SCH (09:42)
[2019-02-06] MEDS: LACTOBACILLUS RHAMNOSUS GG 1 CAPSULE. PO SCH ×2 (09:42→21:10)
[2019-02-06] MEDS: metFORMIN 500 MG TABLET PO SCH ×2 (09:42→16:51)
[2019-02-06] MEDS: LISINOPRIL 5 MG TABLET. PO SCH (09:43)
[2019-02-06] MEDS: busPIRone 10 MG TABLET. PO SCH ×2 (09:49→21:09)
--- NOTE | 2019-02-06 10:01 | PDOC ---
Infectious Disease Note Subjective: Subjective abdomen feels sore Low-grade fever but pattern improving cont to have biliary drainage 90 ml this am , now again 95ml Denies N/V/chills D/W RN ROS: ROS tolerating po intake well some loose bm yesterday none today Vital Signs: Vital Signs Vital Signs Date Time Temp Pulse Resp B/P (MAP) Pulse Ox O2 Delivery O2 Flow Rate FiO2 02/06/19 09:43 103 133/76 02/06/19 09:42 Room Air 02/06/19 07:00 99.3 16 94 99.3 02/06/19 02:55 2.0 Physical Exam: PHYSICAL EXAM GENERAL: Propped up in bed, alert, NAD HEENT: Oral cavity clear NECK: Supple, no JVP, no lymphadenopathy. LUNGS: Clear. HEART: S1, S2 regular. ABDOMEN: Obese, soft, mildly tender, VIKY w/ sang drainage EXTREMITIES: No edema or cyanosis. SKIN: No rash. Multiple tattoos NEUROLOGIC: Alert, oriented PIV Medications: Inpatient Meds: Current Medications Medications (Trade) Dose Ordered Sig/Pierce Start Time Stop Time Status Last Admin Dose Admin Acetaminophen (Tylenol) 650 mg PRN Q6HRS PRN 02/04/19 19:30 02/05/19 00:14 325 MG Acetaminophen/ Hydrocodone Bitart (Lortab 10/325) 1 tab PRN Q6HRS PRN 01/29/19 18:45 01/31/19 23:58 DC 01/31/19 18:44 1 TAB Acetaminophen/ Hydrocodone Bitart (Lortab 5/325) 1 tab PRN Q4HRS PRN 01/29/19 16:00 01/29/19 18:45 DC 01/29/19 17:28 1 TAB Atorvastatin Calcium (Lipitor) 20 mg QHS 02/01/19 21:00 02/05/19 20:28 20 MG Bisacodyl (Dulcolax Supp) 10 mg STK-MED ONCE 01/29/19 07:15 01/29/19 08:16 DC 01/29/19 12:35 10 MG Bisacodyl (Dulcolax Tab) 5 mg PRN DAILY PRN 02/02/19 11:45 02/02/19 12:13 5 MG Bupivacaine HCl/ Epinephrine Bitart (Sensorcain-Mpf Epi 0.5%-1:913025) 30 ml STK-MED ONCE 01/29/19 07:14 01/29/19 08:15 DC 01/29/19 12:35 16 ML Buspirone HCl (Buspar) 30 mg BID 02/01/19 21:00 02/06/19 09:49 30 MG Cefazolin Sodium 3 gm/Dextrose 100 ml @ 200 mls/hr 1X ONCE 01/29/19 13:00 01/29/19 13:29 DC 01/29/19 12:09 200 MLS/HR Cefazolin Sodium/ Dextrose (Ancef 2gm Premix) 2 gm STK-MED ONCE 01/28/19 11:00 01/30/19 07:38 DC Cellulose (Surgicel Hemostat 2x3) 1 each STK-MED ONCE 01/29/19 07:14 01/29/19 08:15 DC 01/29/19 12:35 1 EACH Cellulose (Surgicel Hemostat 4x8) 1 each STK-MED ONCE 01/29/19 13:46 01/29/19 14:46 DC 01/29/19 12:35 1 EACH Dexamethasone Sodium Phosphate (Decadron) 4 mg STK-MED ONCE 01/29/19 11:35 01/29/19 11:36 DC Dextrose (Dextrose 50%-Water Syringe) 12.5 gm PRN Q15MIN PRN 01/29/19 16:00 Docusate Sodium (Colace) 100 mg BID 01/29/19 21:00 02/06/19 09:42 100 MG Enoxaparin Sodium (Lovenox 40mg Syringe) 40 mg Q12HR 02/02/19 14:00 02/06/19 09:41 40 MG Famotidine (Pepcid Vial) 20 mg 1X ONCE 01/29/19 16:15 01/29/19 16:16 DC 01/29/19 16:14 20 MG Fentanyl Citrate (Fentanyl 2ml Vial) 75 mcg PRN Q4HRS PRN 02/01/19 00:15 02/06/19 07:36 75 MCG Fluoxetine HCl (PROzac) 40 mg QHS 02/01/19 21:00 02/05/19 20:29 40 MG Glycopyrrolate (Robinul) 1 mg STK-MED ONCE 01/29/19 15:13 01/29/19 15:14 DC Haloperidol (Haldol) 10 mg DAILY 02/02/19 09:00 02/06/19 09:42 10 MG Heparin Sodium (Porcine) (Heparin Sodium) 10,000 unit STK-MED ONCE 01/29/19 07:14 01/29/19 08:15 DC 01/29/19 12:35 1,000 UNIT Info (CONTRAST GIVEN -- Rx MONITORING) 1 each PRN DAILY PRN 01/27/19 19:30 01/29/19 19:29 DC Iohexol (Omnipaque 240 Mg/ml) 30 ml 1X ONCE 01/27/19 19:15 01/27/19 19:16 DC 01/27/19 19:15 30 ML Iohexol (Omnipaque 300 Mg/ml) 50 ml STK-MED ONCE 01/29/19 12:36 01/29/19 13:37 DC 01/29/19 12:35 50 ML Ketorolac Tromethamine (Toradol 30mg Vial) 20 mg PRN Q6HRS PRN 01/28/19 08:15 02/02/19 08:14 DC 02/01/19 16:29 20 MG Ketorolac Tromethamine (Toradol For Or Only) 30 mg STK-MED ONCE 01/29/19 14:59 01/29/19 15:00 DC Lactobacillus Rhamnosus (Culturelle) 1 cap BID 02/04/19 21:00 02/06/19 09:42 1 CAP Lidocaine HCl (Lidocaine Pf 2% Vial) 5 ml STK-MED ONCE 01/29/19 11:34 01/29/19 11:35 DC Linezolid/Dextrose 300 ml @ 300 mls/hr Q12HR 02/03/19 11:00 02/06/19 09:44 300 MLS/HR Lisinopril (Prinivil) 2.5 mg DAILY 02/02/19 09:00 02/06/19 09:43 2.5 MG Metformin HCl (Glucophage) 500 mg [id number] 02/01/19 18:30 02/06/19 09:42 500 MG Micafungin Sodium 100 mg/Dextrose 100 ml @ 100 mls/hr Q24H 02/04/19 22:30 02/05/19 22:40 100 MLS/HR Mirtazapine (Remeron) 45 mg QHS 02/01/19 21:00 02/05/19 20:29 45 MG Morphine Sulfate (Morphine Sulfate) 2 mg PRN Q2HR PRN 01/28/19 08:15 01/28/19 08:23 DC Neostigmine Methylsulfate (Neostigmine Methylsulfate) 5 mg STK-MED ONCE 01/29/19 15:13 01/29/19 15:14 DC Olanzapine (ZyPREXA) 15 mg QHS 02/01/19 21:00 02/05/19 20:29 15 MG Ondansetron HCl (Zofran) 4 mg PRN Q6HRS PRN 01/29/19 16:00 02/03/19 15:27 4 MG Oxycodone/ Acetaminophen (Percocet 10/325) 1 tab PRN Q4HRS PRN 01/31/19 20:45 02/06/19 09:42 1 TAB Pantoprazole Sodium (Protonix) 40 mg DAILYAC 02/02/19 07:30 02/04/19 07:22 DC Piperacillin Sod/ Tazobactam Sod 3.375 gm/Sodium Chloride 50 ml @ 100 mls/hr Q6HRS 02/02/19 14:00 02/06/19 05:05 100 MLS/HR Polyethylene Glycol (miraLAX PACKET) 17 gm BID 02/02/19 21:00 02/06/19 09:40 17 GM Prochlorperazine Edisylate (Compazine) 5 mg PACU PRN PRN 01/29/19 07:00 01/29/19 19:00 DC Propofol 20 ml @ As Directed STK-MED ONCE 01/29/19 11:34 01/29/19 11:35 DC Ringer's Solution 1,000 ml @ 100 mls/hr Q10H 01/29/19 15:46 02/01/19 01:42 DC 01/31/19 16:36 100 MLS/HR Rocuronium [place] (Zemuron) 50 mg STK-MED ONCE 01/29/19 13:07 01/29/19 13:08 DC Sevoflurane (Ultane) 90 ml STK-MED ONCE 01/29/19 15:20 01/29/19 15:21 DC Sodium Chloride (Normal Saline Flush) 3 ml QSHIFT PRN 01/29/19 16:00 Succinylcholine Chloride (Anectine) 200 mg STK-MED ONCE 01/29/19 11:54 01/29/19 11:55 DC Labs: Lab Laboratory Tests Test 02/06/19 05:20 White Blood Count 13.1 x10^3/uL (4.0-11.0) Red Blood Count 2.55 x10^6/uL (4.30-5.70) Hemoglobin 8.0 g/dL (13.0-17.5) Hematocrit 24.5 % (39.0-53.0) Mean Corpuscular Volume 96 fL (79-100) Mean Corpuscular Hemoglobin 31 pg (25-35) Mean Corpuscular Hemoglobin Concent 33 g/dL (31-37) Red Cell Distribution Width 15.4 % (11.5-14.5) Platelet Count 476 x10^3/uL (140-400) Neutrophils (%) (Auto) 58 % (31-73) Lymphocytes (%) (Auto) 24 % (24-48) Monocytes (%) (Auto) 12 % (0-9) Eosinophils (%) (Auto) 6 % (0-3) Basophils (%) (Auto) 1 % (0-3) Neutrophils # (Auto) 7.6 x10^3uL (1.8-7.7) Lymphocytes # (Auto) 3.1 x10^3/uL (1.0-4.8) Monocytes # (Auto) 1.5 x10^3/uL (0.0-1.1) Eosinophils # (Auto) 0.7 x10^3/uL (0.0-0.7) Basophils # (Auto) 0.1 x10^3/uL (0.0-0.2) Sodium Level 137 mmol/L (136-145) Potassium Level 3.8 mmol/L (3.5-5.1) Chloride Level 100 mmol/L (98-107) Carbon Dioxide Level 32 mmol/L (21-32) Anion Gap 5 (6-14) Blood Urea Nitrogen 6 mg/dL (8-26) Creatinine 1.1 mg/dL (0.7-1.3) Estimated GFR (Cockcroft-Gault) 75.3 BUN/Creatinine Ratio 5 (6-20) Glucose Level 147 mg/dL (70-99) Calcium Level 8.3 mg/dL (8.5-10.1) Total Bilirubin 1.1 mg/dL (0.2-1.0) Aspartate Amino Transf (AST/SGOT) 63 U/L (15-37) Alanine Aminotransferase (ALT/SGPT) 61 U/L (16-63) Alkaline Phosphatase 182 U/L (46-116) Total Protein 6.9 g/dL (6.4-8.2) Albumin 1.9 g/dL (3.4-5.0) Albumin/Globulin Ratio 0.4 (1.0-1.7) Objective: Assessment: Fever improving Leukocytosis, improving Biliary leak, Status post cholecystectomy. Obesity. Hyperbilirubinemia. Plan: Plan of Care cont Zyvox, Zosyn and micafungin HIDA scan pending Monitor temp and VIKY drainage f/u c/s and labs in RICCO VALDEZ MD February 06, 2019 10:01
--- NOTE | 2019-02-06 10:01 | NUR ---
Nuc Med contacted re: HIDA scan done 02/03/19 not being read.
--- NOTE | 2019-02-06 10:08 | PDOC ---
PROGRESS NOTES History of Present Illness History of Present Illness Assessment/Plan Jaundice with transaminitis and hyperbilirubinemia some variable appearance of intraluminal filling defects in the common bile duct although confidently seen on last image Round filling defect in the distal common bile duct is likely choledocholithiasis rather than mass,. There is biliary ductal dilatation. cholelithiasis. T2 hyperintense liver lesions are more likely due to hemangiomas or complex cysts with debris, persistent pain, mod severe, CONTINUES normocytic anemia FEVER OVERNIGHT 101.6 F 02/02 low grade temp 5/4 pm 100.1 EMESIS PM OF 02/02 Plan HIDA SCAN PENDING admitted general surgery and GI following abdominal ultrasound reviewed DVT prophylaxis full code home meds IV fluids when necessary Zofran when necessary prn narcotics prognosis guarded FOLLOW LFT'S, CBC, cbc in am, cont zosyn, add zyvox 42 MIN PT EXAM, chart review, > 50% of time spent with exam, chart review, pt care coordination Vitals Vitals Vital Signs Date Time Temp Pulse Resp B/P (MAP) Pulse Ox O2 Delivery O2 Flow Rate FiO2 02/06/19 09:43 103 133/76 02/06/19 09:42 Room Air 02/06/19 07:00 99.3 16 94 99.3 02/06/19 02:55 2.0 Physical Exam Physical Exam GENERAL: Propped up in bed, alert, NAD HEENT: Oral cavity clear NECK: Supple, no JVP, no lymphadenopathy. LUNGS: Clear. HEART: S1, S2 regular. ABDOMEN: Obese, soft, mildly tender, VIKY w/ sang drainage EXTREMITIES: No edema or cyanosis. SKIN: No rash. Multiple tattoos NEUROLOGIC: Alert, oriented PIV General: Alert, Oriented X3, Cooperative, No acute distress, mild distress Heart: Regular rate, Normal S1, Normal S2, No murmurs Lungs: Clear Abdomen: Soft (VIKY with minimal dark serosang fluid, ?bilious) Extremities: No clubbing, No cyanosis Skin: Other (jaundice) Labs LABS . 01 Material submitted: . gallbladder - GALLBLADDER . 01 Clinical history: . Jaundice, CBD obstruction . 02 Diagnosis: Gallbladder, laparoscopic cholecystectomy: - Cholelithiasis. - Acute hemorrhagic and chronic cholecystitis. - Portion of benign gallbladder neck lymph node identified. . (JPM:mml; 01/31/2019) QL/01/31/2019 . 02 Comment: There is no evidence of malignancy. Laboratory Tests Test 02/06/19 05:20 White Blood Count 13.1 x10^3/uL (4.0-11.0) Red Blood Count 2.55 x10^6/uL (4.30-5.70) Hemoglobin 8.0 g/dL (13.0-17.5) Hematocrit 24.5 % (39.0-53.0) Mean Corpuscular Volume 96 fL (79-100) Mean Corpuscular Hemoglobin 31 pg (25-35) Mean Corpuscular Hemoglobin Concent 33 g/dL (31-37) Red Cell Distribution Width 15.4 % (11.5-14.5) Platelet Count 476 x10^3/uL (140-400) Neutrophils (%) (Auto) 58 % (31-73) Lymphocytes (%) (Auto) 24 % (24-48) Monocytes (%) (Auto) 12 % (0-9) Eosinophils (%) (Auto) 6 % (0-3) Basophils (%) (Auto) 1 % (0-3) Neutrophils # (Auto) 7.6 x10^3uL (1.8-7.7) Lymphocytes # (Auto) 3.1 x10^3/uL (1.0-4.8) Monocytes # (Auto) 1.5 x10^3/uL (0.0-1.1) Eosinophils # (Auto) 0.7 x10^3/uL (0.0-0.7) Basophils # (Auto) 0.1 x10^3/uL (0.0-0.2) Sodium Level 137 mmol/L (136-145) Potassium Level 3.8 mmol/L (3.5-5.1) Chloride Level 100 mmol/L (98-107) Carbon Dioxide Level 32 mmol/L (21-32) Anion Gap 5 (6-14) Blood Urea Nitrogen 6 mg/dL (8-26) Creatinine 1.1 mg/dL (0.7-1.3) Estimated GFR (Cockcroft-Gault) 75.3 BUN/Creatinine Ratio 5 (6-20) Glucose Level 147 mg/dL (70-99) Calcium Level 8.3 mg/dL (8.5-10.1) Total Bilirubin 1.1 mg/dL (0.2-1.0) Aspartate Amino Transf (AST/SGOT) 63 U/L (15-37) Alanine Aminotransferase (ALT/SGPT) 61 U/L (16-63) Alkaline Phosphatase 182 U/L (46-116) Total Protein 6.9 g/dL (6.4-8.2) Albumin 1.9 g/dL (3.4-5.0) Albumin/Globulin Ratio 0.4 (1.0-1.7) Assessment and Plan Assessmemt and Plan Problems Medical Problems: (1) Common bile duct dilatation Status: Acute (2) Jaundice Status: Acute (3) Morbid obesity Status: Acute Comment Review of Relevant I have reviewed the following items gustavo (where applicable) has been applied. Labs Laboratory Tests Test 02/06/19 05:20 White Blood Count 13.1 x10^3/uL (4.0-11.0) Red Blood Count 2.55 x10^6/uL (4.30-5.70) Hemoglobin 8.0 g/dL (13.0-17.5) Hematocrit 24.5 % (39.0-53.0) Mean Corpuscular Volume 96 fL (79-100) Mean Corpuscular Hemoglobin 31 pg (25-35) Mean Corpuscular Hemoglobin Concent 33 g/dL (31-37) Red Cell Distribution Width 15.4 % (11.5-14.5) Platelet Count 476 x10^3/uL (140-400) Neutrophils (%) (Auto) 58 % (31-73) Lymphocytes (%) (Auto) 24 % (24-48) Monocytes (%) (Auto) 12 % (0-9) Eosinophils (%) (Auto) 6 % (0-3) Basophils (%) (Auto) 1 % (0-3) Neutrophils # (Auto) 7.6 x10^3uL (1.8-7.7) Lymphocytes # (Auto) 3.1 x10^3/uL (1.0-4.8) Monocytes # (Auto) 1.5 x10^3/uL (0.0-1.1) Eosinophils # (Auto) 0.7 x10^3/uL (0.0-0.7) Basophils # (Auto) 0.1 x10^3/uL (0.0-0.2) Sodium Level 137 mmol/L (136-145) Potassium Level 3.8 mmol/L (3.5-5.1) Chloride Level 100 mmol/L (98-107) Carbon Dioxide Level 32 mmol/L (21-32) Anion Gap 5 (6-14) Blood Urea Nitrogen 6 mg/dL (8-26) Creatinine 1.1 mg/dL (0.7-1.3) Estimated GFR (Cockcroft-Gault) 75.3 BUN/Creatinine Ratio 5 (6-20) Glucose Level 147 mg/dL (70-99) Calcium Level 8.3 mg/dL (8.5-10.1) Total Bilirubin 1.1 mg/dL (0.2-1.0) Aspartate Amino Transf (AST/SGOT) 63 U/L (15-37) Alanine Aminotransferase (ALT/SGPT) 61 U/L (16-63) Alkaline Phosphatase 182 U/L (46-116) Total Protein 6.9 g/dL (6.4-8.2) Albumin 1.9 g/dL (3.4-5.0) Albumin/Globulin Ratio 0.4 (1.0-1.7) Laboratory Tests Test 02/06/19 05:20 White Blood Count 13.1 x10^3/uL (4.0-11.0) Red Blood Count 2.55 x10^6/uL (4.30-5.70) Hemoglobin 8.0 g/dL (13.0-17.5) Hematocrit 24.5 % (39.0-53.0) Mean Corpuscular Volume 96 fL (79-100) Mean Corpuscular Hemoglobin 31 pg (25-35) Mean Corpuscular Hemoglobin Concent 33 g/dL (31-37) Red Cell Distribution Width 15.4 % (11.5-14.5) Platelet Count 476 x10^3/uL (140-400) Neutrophils (%) (Auto) 58 % (31-73) Lymphocytes (%) (Auto) 24 % (24-48) Monocytes (%) (Auto) 12 % (0-9) Eosinophils (%) (Auto) 6 % (0-3) Basophils (%) (Auto) 1 % (0-3) Neutrophils # (Auto) 7.6 x10^3uL (1.8-7.7) Lymphocytes # (Auto) 3.1 x10^3/uL (1.0-4.8) Monocytes # (Auto) 1.5 x10^3/uL (0.0-1.1) Eosinophils # (Auto) 0.7 x10^3/uL (0.0-0.7) Basophils # (Auto) 0.1 x10^3/uL (0.0-0.2) Sodium Level 137 mmol/L (136-145) Potassium Level 3.8 mmol/L (3.5-5.1) Chloride Level 100 mmol/L (98-107) Carbon Dioxide Level 32 mmol/L (21-32) Anion Gap 5 (6-14) Blood Urea Nitrogen 6 mg/dL (8-26) Creatinine 1.1 mg/dL (0.7-1.3) Estimated GFR (Cockcroft-Gault) 75.3 BUN/Creatinine Ratio 5 (6-20) Glucose Level 147 mg/dL (70-99) Calcium Level 8.3 mg/dL (8.5-10.1) Total Bilirubin 1.1 mg/dL (0.2-1.0) Aspartate Amino Transf (AST/SGOT) 63 U/L (15-37) Alanine Aminotransferase (ALT/SGPT) 61 U/L (16-63) Alkaline Phosphatase 182 U/L (46-116) Total Protein 6.9 g/dL (6.4-8.2) Albumin 1.9 g/dL (3.4-5.0) Albumin/Globulin Ratio 0.4 (1.0-1.7) Microbiology 02/05/19 Blood Culture - Preliminary, Resulted NO GROWTH AFTER 1 DAY Medications Current Medications Iohexol (Omnipaque 240 Mg/ml) 30 ml 1X ONCE PO Last administered on 01/27/19at 19:15; Start 01/27/19 at 19:15; Stop 01/27/19 at 19:16; Status DC Iohexol (Omnipaque 300 Mg/ml) 75 ml 1X ONCE IV Last administered on 01/27/19at 20:10; Start 01/27/19 at 19:15; Stop 01/27/19 at 19:16; Status DC Info (CONTRAST GIVEN -- Rx MONITORING) 1 each PRN DAILY PRN MC SEE COMMENTS; Start 01/27/19 at 19:30; Stop 01/29/19 at 19:29; Status DC Ketorolac Tromethamine (Toradol 30mg Vial) 30 mg 1X ONCE IV Last administered on 01/27/19at 22:02; Start 01/27/19 at 21:30; Stop 01/27/19 at 21:31; Status DC Sodium Chloride 1,000 ml @ 1,000 mls/hr 1X ONCE IV Last administered on 01/27/19at 21:58; Start 01/27/19 at 21:30; Stop 01/27/19 at 22:29; Status DC Sodium Chloride 1,000 ml @ 150 mls/hr Q6H40M IV Last administered on 01/28/19at 12:34; Start 01/27/19 at 22:00; Stop 01/28/19 at 21:59; Status DC Morphine Sulfate (Morphine Sulfate) 2 mg PRN Q2HR PRN IV PAIN; Start 01/28/19 at 08:15; Stop 01/28/19 at 08:23; Status DC Ketorolac Tromethamine (Toradol 30mg Vial) 20 mg PRN Q6HRS PRN IV MILD PAIN Last administered on 02/01/19at 16:29; Start 01/28/19 at 08:15; Stop 02/02/19 at 08:14; Status DC Fentanyl Citrate (Fentanyl 2ml Vial) 50 mcg PRN Q2HR PRN IV MODERATE PAIN, SEVERE PAIN Last administered on 01/29/19at 17:28; Start 01/28/19 at 08:30; Stop 01/29/19 at 18:44; Status DC Cefazolin Sodium/ Dextrose 50 ml @ 100 mls/hr 1X PREOP IV ; Start 01/28/19 at 15:45; Stop 01/29/19 at 10:14; Status DC Fentanyl Citrate (Fentanyl 2ml Vial) 25 mcg PRN Q5MIN PRN IV MILD PAIN; Start 01/29/19 at 07:00; Stop 01/29/19 at 19:00; Status DC Fentanyl Citrate (Fentanyl 2ml Vial) 50 mcg PRN Q5MIN PRN IV MODERATE TO SEVERE PAIN Last administered on 01/29/19at 16:32; Start 01/29/19 at 07:00; Stop 01/29/19 at 19:00; Status DC Ringer's Solution 1,000 ml @ 30 mls/hr Q24H IV Last administered on 01/29/19at 09:49; Start 01/29/19 at 07:00; Stop 01/29/19 at 18:59; Status DC Prochlorperazine Edisylate (Compazine) 5 mg PACU PRN PRN IV NAUSEA, MRX1; Start 01/29/19 at 07:00; Stop 01/29/19 at 19:00; Status DC Dextrose (Dextrose 50%-Water Syringe) 12.5 gm PRN Q15MIN PRN IV SEE COMMENTS; Start 01/28/19 at 19:45; Stop 01/30/19 at 13:49; Status DC Bupivacaine HCl/ Epinephrine Bitart (Sensorcain-Mpf Epi 0.5%-1:[id number]) 30 ml STK-MED ONCE .ROUTE Last administered on 01/29/19 12:35; Start 01/29/19 at 07:14; Stop 01/29/19 at 08:15; Status DC Cellulose (Surgicel Hemostat 2x3) 1 each STK-MED ONCE .ROUTE Last administered on 01/29/19 12:35; Start 01/29/19 at 07:14; Stop 01/29/19 at 08:15; Status DC Heparin Sodium (Porcine) (Heparin Sodium) 10,000 unit STK-MED ONCE .ROUTE Last administered on 01/29/19 12:35; Start 01/29/19 at 07:14; Stop 01/29/19 at 08:15; Status DC Iohexol (Omnipaque 300 Mg/ml) 50 ml STK-MED ONCE .ROUTE Last administered on 4/28/19at 12:35; Start 01/29/19 at 07:14; Stop 01/29/19 at 08:16; Status DC Bisacodyl (Dulcolax Supp) 10 mg STK-MED ONCE .ROUTE Last administered on 01/29/19at 12:35; Start 01/29/19 at 07:15; Stop 01/29/19 at 08:16; Status DC Cefazolin Sodium/ Dextrose 50 ml @ 100 mls/hr 1X PREOP IV ; Start 01/29/19 at 10:15; Stop 01/29/19 at 18:56; Status DC Ondansetron HCl (Zofran) 4 mg STK-MED ONCE .ROUTE ; Start 01/29/19 at 11:34; Stop 01/29/19 at 11:35; Status DC Propofol 20 ml @ As Directed STK-MED ONCE IV ; Start 01/29/19 at 11:34; Stop 01/29/19 at 11:35; Status DC Lidocaine HCl (Lidocaine Pf 2% Vial) 5 ml STK-MED ONCE .ROUTE ; Start 01/29/19 at 11:34; Stop 01/29/19 at 11:35; Status DC Fentanyl Citrate (Fentanyl 2ml Vial) 100 mcg STK-MED ONCE .ROUTE ; Start 01/29/19 at 11:34; Stop 01/29/19 at 11:35; Status DC Dexamethasone Sodium Phosphate (Decadron) 4 mg STK-MED ONCE .ROUTE ; Start 01/29/19 at 11:35; Stop 01/29/19 at 11:36; Status DC Rocuronium [place] (Zemuron) 50 mg STK-MED ONCE .ROUTE ; Start 01/29/19 at 11:35; Stop 01/29/19 at 11:36; Status DC Succinylcholine Chloride (Anectine) 200 mg STK-MED ONCE .ROUTE ; Start 01/29/19 at 11:54; Stop 01/29/19 at 11:55; Status DC Cefazolin Sodium 100 ml @ As Directed STK-MED ONCE IV ; Start 01/29/19 at 12:06; Stop 01/29/19 at 12:07; Status DC Cefazolin Sodium 50 ml @ As Directed STK-MED ONCE IV ; Start 01/29/19 at 12:07; Stop 01/29/19 at 12:08; Status DC Cefazolin Sodium 3 gm/Dextrose 100 ml @ 200 mls/hr 1X ONCE IV Last administered on 01/29/19at 12:09; Start 01/29/19 at 13:00; Stop 01/29/19 at 13:29; Status DC Glycopyrrolate (Robinul) 1 mg STK-MED ONCE .ROUTE ; Start 01/29/19 at 12:57; Stop 01/29/19 at 12:58; Status DC Neostigmine Methylsulfate (Neostigmine Methylsulfate) 5 mg STK-MED ONCE .ROUTE ; Start 01/29/19 at 12:58; Stop 01/29/19 at 12:59; Status DC Rocuronium [place] (Zemuron) 50 mg STK-MED ONCE .ROUTE ; Start 01/29/19 at 13:07; Stop 01/29/19 at 13:08; Status DC Fentanyl Citrate (Fentanyl 2ml Vial) 100 mcg STK-MED ONCE .ROUTE ; Start 01/29/19 at 13:10; Stop 01/29/19 at 13:11; Status DC Iohexol (Omnipaque 300 Mg/ml) 50 ml STK-MED ONCE .ROUTE Last administered on 01/29/19at 12:35; Start 01/29/19 at 12:36; Stop 01/29/19 at 13:37; Status DC Cellulose (Surgicel Hemostat 4x8) 1 each STK-MED ONCE .ROUTE Last administered on 01/29/19at 12:35; Start 01/29/19 at 13:42; Stop 01/29/19 at 14:42; Status DC Cellulose (Surgicel Hemostat 4x8) 1 each STK-MED ONCE .ROUTE Last administered on 01/29/19at 12:35; Start 01/29/19 at 13:46; Stop 01/29/19 at 14:46; Status DC Ketorolac Tromethamine (Toradol For Or Only) 30 mg STK-MED ONCE INJ ; Start 01/29/19 at 14:59; Stop 01/29/19 at 15:00; Status DC Glycopyrrolate (Robinul) 1 mg STK-MED ONCE .ROUTE ; Start 01/29/19 at 15:13; Stop 01/29/19 at 15:14; Status DC Neostigmine Methylsulfate (Neostigmine Methylsulfate) 5 mg STK-MED ONCE .ROUTE ; Start 01/29/19 at 15:13; Stop 01/29/19 at 15:14; Status DC Sevoflurane (Ultane) 90 ml STK-MED ONCE IH ; Start 01/29/19 at 15:20; Stop 01/29/19 at 15:21; Status DC Fentanyl Citrate (Fentanyl 2ml Vial) 100 mcg STK-MED ONCE .ROUTE ; Start 01/29/19 at 15:32; Stop 01/29/19 at 15:33; Status DC Fentanyl Citrate (Fentanyl 2ml Vial) 100 mcg STK-MED ONCE .ROUTE ; Start 01/29/19 at 15:48; Stop 01/29/19 at 15:49; Status DC Sodium Chloride (Normal Saline Flush) 3 ml QSHIFT PRN IV AFTER MEDS AND BLOOD DRAWS; Start 01/29/19 at 16:00 Ringer's Solution 1,000 ml @ 100 mls/hr Q10H IV Last administered on 01/31/19at 16:36; Start 01/29/19 at 15:46; Stop 02/01/19 at 01:42; Status DC Dextrose (Dextrose 50%-Water Syringe) 12.5 gm PRN Q15MIN PRN IV SEE COMMENTS; Start 01/29/19 at 16:00 Acetaminophen/ Hydrocodone Bitart (Lortab 5/325) 1 tab PRN Q4HRS PRN PO MILD PAIN Last administered on 01/29/19at 17:28; Start 01/29/19 at 16:00; Stop 01/29/19 at 18:45; Status DC Docusate Sodium (Colace) 100 mg BID PO Last administered on 02/06/19at 09:42; Start 01/29/19 at 21:00 Ondansetron HCl (Zofran) 4 mg PRN Q6HRS PRN IV NAUESA, 1ST CHOICE Last administered on 02/03/19at 15:27; Start 01/29/19 at 16:00 Famotidine (Pepcid Vial) 20 mg 1X ONCE IVP Last administered on 01/29/19at 16:14; Start 01/29/19 at 16:15; Stop 01/29/19 at 16:16; Status DC Pantoprazole Sodium (Protonix) 40 mg DAILYAC PO Last administered on 02/06/19 09:42; Start 01/30/19 at 07:30 Fentanyl Citrate (Fentanyl 2ml Vial) 75 mcg PRN Q2HR PRN IV SEVERE PAIN Last administered on 02/01/19 00:09; Start 01/29/19 at 18:45; Stop 02/01/19 at 00:13; Status DC Acetaminophen/ Hydrocodone Bitart (Lortab 10/325) 1 tab PRN Q6HRS PRN PO MODERATE PAIN Last administered on 01/31/19 18:44; Start 01/29/19 at 18:45; Stop 01/31/19 at 23:58; Status DC Cefazolin Sodium/ Dextrose (Ancef 2gm Premix) 2 gm STK-MED ONCE IV ; Start 01/28/19 at 11:00; Stop 01/30/19 at 07:38; Status DC Oxycodone/ Acetaminophen (Percocet 10/325) 1 tab PRN Q4HRS PRN PO severe pain Last administered on 02/06/19 09:42; Start 01/31/19 at 20:45 Fentanyl Citrate (Fentanyl 2ml Vial) 75 mcg PRN Q4HRS PRN IV SEVERE PAIN Last administered on 02/06/19 07:36; Start 02/01/19 at 00:15 Atorvastatin Calcium (Lipitor) 20 mg QHS PO Last administered on 02/05/19 20:28; Start 02/01/19 at 21:00 Buspirone HCl (Buspar) 30 mg BID PO Last administered on 02/06/19 09:49; Start 02/01/19 at 21:00 Fluoxetine HCl (PROzac) 40 mg QHS PO Last administered on 02/05/19 20:29; Start 02/01/19 at 21:00 Haloperidol (Haldol) 10 mg DAILY PO Last administered on 02/06/19 09:42; Start 02/02/19 at 09:00 Lisinopril (Prinivil) 2.5 mg DAILY PO Last administered on 02/06/19 09:43; Start 02/02/19 at 09:00 Metformin HCl (Glucophage) 500 mg BIDWMEALS PO Last administered on 02/06/19 09:42; Start 02/01/19 at 18:30 Mirtazapine (Remeron) 45 mg QHS PO Last administered on 02/05/19 20:29; Start 02/01/19 at 21:00 Olanzapine (ZyPREXA) 15 mg QHS PO Last administered on 02/05/19 20:29; Start 02/01/19 at 21:00 Pantoprazole Sodium (Protonix) 40 mg DAILYAC PO ; Start 02/02/19 at 07:30; Stop 02/04/19 at 07:22; Status DC Polyethylene Glycol (miraLAX PACKET) 17 gm BID PO Last administered on 02/06/19 09:40; Start 02/02/19 at 21:00 Bisacodyl (Dulcolax Tab) 5 mg PRN DAILY PRN PO CONSTIPATION Last administered on 02/02/19 12:13; Start 02/02/19 at 11:45 Piperacillin Sod/ Tazobactam Sod 3.375 gm/Sodium Chloride 50 ml @ 100 mls/hr Q6HRS IV Last administered on 02/06/19 05:05; Start 02/02/19 at 14:00 Enoxaparin Sodium (Lovenox 40mg Syringe) 40 mg Q12HR SQ Last administered on 02/06/19 09:41; Start 02/02/19 at 14:00 Linezolid/Dextrose 300 ml @ 300 mls/hr Q12HR IV Last administered on 02/06/19 09:44; Start 02/03/19 at 11:00 Lactobacillus Rhamnosus (Culturelle) 1 cap BID PO Last administered on 02/06/19 09:42; Start 02/04/19 at 21:00 Acetaminophen (Tylenol) 650 mg PRN Q6HRS PRN PO FEVER Last administered on 02/05/19 00:14; Start 02/04/19 at 19:30 Micafungin Sodium 100 mg/Dextrose 100 ml @ 100 mls/hr Q24H IV Last administered on 02/05/19 22:40; Start 02/04/19 at 22:30 Active Scripts Active Reported Buspirone Hcl 30 Mg Tablet 1 Tab PO BID Protonix (Pantoprazole Sodium) 20 Mg Tablet.dr 2 Tab PO DAILY Zantac (Ranitidine Hcl) 150 Mg Tablet 1 Tab PO HS Tums (Calcium Carbonate) 200 Mg Tab.chew 200 Mg PO TID Zyprexa (Olanzapine) 15 Mg Tablet 1 Tab PO QHS Remeron (Mirtazapine) 15 Mg Tablet 3 Tab PO QHS Lisinopril 2.5 Mg Tablet 1 Tab PO DAILY Atorvastatin Calcium 20 Mg Tablet 1 Tab PO DAILY Haloperidol 10 Mg Tablet 10 Mg PO DAILY Prozac (Fluoxetine Hcl) 40 Mg Capsule 1 Cap PO HS Metformin Hcl 500 Mg Tablet 500 Mg PO BIDWMEALS Vitals/I & O Vital Sign - Last 24 Hours 02/05/19 02/05/19 02/05/19 02/05/19 10:22 11:00 12:19 13:59 Temp 97.9 97.9 Pulse 96 Resp 20 18 20 B/P (MAP) 126/75 (92) Pulse Ox 96 96 O2 Delivery Room Air Room Air Room Air Room Air 02/05/19 02/05/19 02/05/19 02/05/19 14:38 15:00 16:22 17:24 Temp 97.9 97.9 Pulse 104 Resp 16 B/P (MAP) 133/80 (97) Pulse Ox 96 97 97 97 O2 Delivery Room Air Room Air 02/05/19 02/05/19 02/05/19 02/05/19 18:11 19:15 20:00 23:15 Temp 99.3 99.7 99.3 99.7 Pulse 103 106 Resp 18 18 B/P (MAP) 119/75 (90) 124/67 (86) Pulse Ox 97 96 92 O2 Delivery Room Air Room Air Room Air Room Air O2 Flow Rate 2.0 02/06/19 02/06/19 02/06/19 02/06/19 02:55 03:21 07:00 07:40 Temp 98.6 99.3 98.6 99.3 Pulse 106 103 Resp 18 16 B/P (MAP) 145/79 (101) 133/76 (95) Pulse Ox 92 94 94 O2 Delivery Room Air Room Air Room Air Room Air O2 Flow Rate 2.0 02/06/19 02/06/19 02/06/19 02/06/19 08:25 08:25 09:42 09:43 Pulse 103 B/P (MAP) 133/76 O2 Delivery Room Air Room Air Room Air Intake and Output 02/05/19 02/05/19 02/06/19 15:00 23:00 07:00 Intake Total 980 ml Output Total 200 ml 90 ml Balance -200 ml 890 ml BERNARDINO COX MD February 06, 2019 10:08
--- NOTE | 2019-02-06 10:57 | NUR ---
Nuc med contacted again Re: reading of HIDA. HARRISON Laws notified.
--- NOTE | 2019-02-06 10:59 | PDOC ---
[employer] 02/06/19 1059: SURGICAL PROGRESS NOTE Subjective up in room pain is a 5 + stools Vital Signs Vital Signs Date Time Temp Pulse Resp B/P (MAP) Pulse Ox O2 Delivery O2 Flow Rate FiO2 02/06/19 10:44 Room Air 02/06/19 09:43 103 133/76 02/06/19 07:00 99.3 16 94 99.3 02/06/19 02:55 2.0 I&O Intake and Output 02/06/19 07:00 Intake Total 980 ml Output Total 290 ml Balance 690 ml Intake Oral 980 ml Drainage Total 290 ml # Voids 4 General: Alert, Oriented X3, Cooperative, No acute distress Abdomen: Soft, Other (ND, drain with sang/bili color fluid) Labs Laboratory Tests Test 02/06/19 05:20 White Blood Count 13.1 x10^3/uL (4.0-11.0) Red Blood Count 2.55 x10^6/uL (4.30-5.70) Hemoglobin 8.0 g/dL (13.0-17.5) Hematocrit 24.5 % (39.0-53.0) Mean Corpuscular Volume 96 fL (79-100) Mean Corpuscular Hemoglobin 31 pg (25-35) Mean Corpuscular Hemoglobin Concent 33 g/dL (31-37) Red Cell Distribution Width 15.4 % (11.5-14.5) Platelet Count 476 x10^3/uL (140-400) Neutrophils (%) (Auto) 58 % (31-73) Lymphocytes (%) (Auto) 24 % (24-48) Monocytes (%) (Auto) 12 % (0-9) Eosinophils (%) (Auto) 6 % (0-3) Basophils (%) (Auto) 1 % (0-3) Neutrophils # (Auto) 7.6 x10^3uL (1.8-7.7) Lymphocytes # (Auto) 3.1 x10^3/uL (1.0-4.8) Monocytes # (Auto) 1.5 x10^3/uL (0.0-1.1) Eosinophils # (Auto) 0.7 x10^3/uL (0.0-0.7) Basophils # (Auto) 0.1 x10^3/uL (0.0-0.2) Sodium Level 137 mmol/L (136-145) Potassium Level 3.8 mmol/L (3.5-5.1) Chloride Level 100 mmol/L (98-107) Carbon Dioxide Level 32 mmol/L (21-32) Anion Gap 5 (6-14) Blood Urea Nitrogen 6 mg/dL (8-26) Creatinine 1.1 mg/dL (0.7-1.3) Estimated GFR (Cockcroft-Gault) 75.3 BUN/Creatinine Ratio 5 (6-20) Glucose Level 147 mg/dL (70-99) Calcium Level 8.3 mg/dL (8.5-10.1) Total Bilirubin 1.1 mg/dL (0.2-1.0) Aspartate Amino Transf (AST/SGOT) 63 U/L (15-37) Alanine Aminotransferase (ALT/SGPT) 61 U/L (16-63) Alkaline Phosphatase 182 U/L (46-116) Total Protein 6.9 g/dL (6.4-8.2) Albumin 1.9 g/dL (3.4-5.0) Albumin/Globulin Ratio 0.4 (1.0-1.7) Laboratory Tests Test 02/06/19 05:20 White Blood Count 13.1 x10^3/uL (4.0-11.0) Red Blood Count 2.55 x10^6/uL (4.30-5.70) Hemoglobin 8.0 g/dL (13.0-17.5) Hematocrit 24.5 % (39.0-53.0) Mean Corpuscular Volume 96 fL (79-100) Mean Corpuscular Hemoglobin 31 pg (25-35) Mean Corpuscular Hemoglobin Concent 33 g/dL (31-37) Red Cell Distribution Width 15.4 % (11.5-14.5) Platelet Count 476 x10^3/uL (140-400) Neutrophils (%) (Auto) 58 % (31-73) Lymphocytes (%) (Auto) 24 % (24-48) Monocytes (%) (Auto) 12 % (0-9) Eosinophils (%) (Auto) 6 % (0-3) Basophils (%) (Auto) 1 % (0-3) Neutrophils # (Auto) 7.6 x10^3uL (1.8-7.7) Lymphocytes # (Auto) 3.1 x10^3/uL (1.0-4.8) Monocytes # (Auto) 1.5 x10^3/uL (0.0-1.1) Eosinophils # (Auto) 0.7 x10^3/uL (0.0-0.7) Basophils # (Auto) 0.1 x10^3/uL (0.0-0.2) Sodium Level 137 mmol/L (136-145) Potassium Level 3.8 mmol/L (3.5-5.1) Chloride Level 100 mmol/L (98-107) Carbon Dioxide Level 32 mmol/L (21-32) Anion Gap 5 (6-14) Blood Urea Nitrogen 6 mg/dL (8-26) Creatinine 1.1 mg/dL (0.7-1.3) Estimated GFR (Cockcroft-Gault) 75.3 BUN/Creatinine Ratio 5 (6-20) Glucose Level 147 mg/dL (70-99) Calcium Level 8.3 mg/dL (8.5-10.1) Total Bilirubin 1.1 mg/dL (0.2-1.0) Aspartate Amino Transf (AST/SGOT) 63 U/L (15-37) Alanine Aminotransferase (ALT/SGPT) 61 U/L (16-63) Alkaline Phosphatase 182 U/L (46-116) Total Protein 6.9 g/dL (6.4-8.2) Albumin 1.9 g/dL (3.4-5.0) Albumin/Globulin Ratio 0.4 (1.0-1.7) Problem List Problems Medical Problems: (1) Common bile duct dilatation Status: Acute (2) Jaundice Status: Acute (3) Morbid obesity Status: Acute Assessment/Plan continue care HIDA pending still will review with JANA Marte MD 02/06/19 1608: SURGICAL PROGRESS NOTE Assessment/Plan Pt with some pain, but gradual improvement garth PO and passing stools jaundice resolved PIPPDA with bile leak will ask Gi to evaluate for stent, cont drain. [employer] February 06, 2019 10:59 JANA VITAL MD February 06, 2019 16:08
[2019-02-06 11:00] VITALS: BP 140/81
--- NOTE | 2019-02-06 11:07 | RAD ---
Radionuclide hepatobiliary scan, 02/03/2019: History: Possible bile leak after cholecystectomy Imaging of the abdomen was performed following IV injection of 5.5 mCi of technetium 99m Choletec. This study is just now being presented for review due to PACS issues. There is prompt uptake of the radionuclide from the blood stream by the liver. There is an abnormal collection of activity in the gallbladder fossa region in this patient who is status post cholecystectomy. Activity extends into a surgical drain. Activity does not extend into the distal common bile duct or duodenum on images obtained out to one hour. IMPRESSION: Evidence of a bile leak in the gallbladder fossa with extension into a surgical drain.
--- NOTE | 2019-02-06 14:11 | RAD ---
BILATERAL LOWER EXTREMITY ULTRASOUND WITH DOPPLER 02/06/2019 12:50 PM Clinical Information: Edema. Comparison: None. Technique: Multiple grayscale, color Doppler, and spectral Doppler sonographic images of the lower extremity venous structures were obtained. Findings: The right common femoral, femoral, and popliteal veins exhibit normal compression, respiratory phasicity, and augmentation. No intraluminal thrombi are identified. Color Doppler flow is demonstrated in the right posterior tibial veins. The left common femoral, femoral, and popliteal veins exhibit normal compression, respiratory phasicity, and augmentation. No intraluminal thrombi are identified. Color Doppler flow is demonstrated in the left posterior tibial veins. Greater saphenous veins are patent. Impression: 1. No evidence of deep venous thrombosis. Electronically signed by: Kimmy Schumacher MD (02/06/2019 2:08 PM) [email or web address]
[2019-02-06 15:00] VITALS: BP 122/80
[2019-02-06 16:42] LABS: PROTHROMBIN TIME PATIENT 13.6 SEC (11.7-14.0)
[2019-02-06 19:00] VITALS: BP 113/77
[2019-02-06] MEDS: MIRTAZAPINE 15 MG TABLET PO SCH (21:09)
[2019-02-06] MEDS: ATORVASTATIN CALCIUM 20 MG TABLET PO SCH (21:10)
[2019-02-06] MEDS: OLANZapine 5 MG TABLET PO SCH (21:10)
[2019-02-06] MEDS: FLUoxetine HCL 20 MG CAPSULE PO SCH (21:10)
[2019-02-06] MEDS: MICAFUNGIN 100 MG in IV DEXTROSE 5% 100ML 100 ML IV SCH (22:30)
[2019-02-06 23:00] VITALS: BP 139/76
[2019-02-07] MEDS: fentaNYL PF VIAL 100 MCG/2 ML VIAL IV PRN ×4 (01:22→16:07)
[2019-02-07 03:00] VITALS: BP 135/81
[2019-02-07] MEDS: oxyCODONE/APAP 10/325 1 TAB TABLET PO PRN ×3 (03:07→22:16)
[2019-02-07] MEDS: PIPERACILLIN/TAZOBACTAM 3.375 GM in IV NORMAL SALINE 50ML 50 ML IV SCH ×5 (06:01→17:46)
[2019-02-07 07:00] VITALS: BP 105/60
[2019-02-07] MEDS: metFORMIN 500 MG TABLET PO SCH ×2 (08:00→15:58)
[2019-02-07] MEDS: DOCUSATE SODIUM 100 MG CAPSULE. PO SCH ×2 (09:00→20:57)
[2019-02-07] MEDS: busPIRone 10 MG TABLET. PO SCH ×2 (09:00→20:55)
[2019-02-07] MEDS: LACTOBACILLUS RHAMNOSUS GG 1 CAPSULE. PO SCH ×2 (09:00→20:57)
[2019-02-07] MEDS: POLYETHYLENE GLYCOL 3350 17 GM PACKET. PO SCH ×2 (09:00→20:57)
[2019-02-07] MEDS: ENOXAPARIN 40 MG/0.4 ML SYRINGE. SQ SCH ×2 (09:00→20:56)
--- NOTE | 2019-02-07 09:34 | PDOC ---
SURGICAL PROGRESS NOTE Subjective pain about the same NPO for procedure Vital Signs Vital Signs Date Time Temp Pulse Resp B/P (MAP) Pulse Ox O2 Delivery O2 Flow Rate FiO2 02/07/19 07:00 99.4 97 16 105/60 (75) 96 Room Air 99.4 I&O Intake and Output 02/07/19 07:00 Intake Total 1020 ml Output Total 1600 ml Balance -580 ml Intake Oral 1020 ml Gastric Drainage Total 510 ml Drainage Total 1090 ml # Voids 2 General: Alert, Oriented X3, Cooperative, No acute distress Abdomen: Soft, Other (drain bilious) Labs Laboratory Tests Test 02/06/19 05:20 White Blood Count 13.1 x10^3/uL (4.0-11.0) Red Blood Count 2.55 x10^6/uL (4.30-5.70) Hemoglobin 8.0 g/dL (13.0-17.5) Hematocrit 24.5 % (39.0-53.0) Mean Corpuscular Volume 96 fL (79-100) Mean Corpuscular Hemoglobin 31 pg (25-35) Mean Corpuscular Hemoglobin Concent 33 g/dL (31-37) Red Cell Distribution Width 15.4 % (11.5-14.5) Platelet Count 476 x10^3/uL (140-400) Neutrophils (%) (Auto) 58 % (31-73) Lymphocytes (%) (Auto) 24 % (24-48) Monocytes (%) (Auto) 12 % (0-9) Eosinophils (%) (Auto) 6 % (0-3) Basophils (%) (Auto) 1 % (0-3) Neutrophils # (Auto) 7.6 x10^3uL (1.8-7.7) Lymphocytes # (Auto) 3.1 x10^3/uL (1.0-4.8) Monocytes # (Auto) 1.5 x10^3/uL (0.0-1.1) Eosinophils # (Auto) 0.7 x10^3/uL (0.0-0.7) Basophils # (Auto) 0.1 x10^3/uL (0.0-0.2) Prothrombin Time 13.6 SEC (11.7-14.0) Prothromb Time International Ratio 1.1 (0.8-1.1) Sodium Level 137 mmol/L (136-145) Potassium Level 3.8 mmol/L (3.5-5.1) Chloride Level 100 mmol/L (98-107) Carbon Dioxide Level 32 mmol/L (21-32) Anion Gap 5 (6-14) Blood Urea Nitrogen 6 mg/dL (8-26) Creatinine 1.1 mg/dL (0.7-1.3) Estimated GFR (Cockcroft-Gault) 75.3 BUN/Creatinine Ratio 5 (6-20) Glucose Level 147 mg/dL (70-99) Calcium Level 8.3 mg/dL (8.5-10.1) Total Bilirubin 1.1 mg/dL (0.2-1.0) Aspartate Amino Transf (AST/SGOT) 63 U/L (15-37) Alanine Aminotransferase (ALT/SGPT) 61 U/L (16-63) Alkaline Phosphatase 182 U/L (46-116) Total Protein 6.9 g/dL (6.4-8.2) Albumin 1.9 g/dL (3.4-5.0) Albumin/Globulin Ratio 0.4 (1.0-1.7) Problem List Problems Medical Problems: (1) Common bile duct dilatation Status: Acute (2) Jaundice Status: Acute (3) Morbid obesity Status: Acute Assessment/Plan ercp, stent today with SCAR LEOS APRN February 07, 2019 09:34
--- NOTE | 2019-02-07 09:57 | PDOC ---
Infectious Disease Note Subjective: Subjective says cont to have abdo discomfort Low-grade fever but pattern improving cont to have biliary drainage Denies N/V/chills D/W RN ROS: ROS Negative except for above. Vital Signs: Vital Signs Vital Signs Date Time Temp Pulse Resp B/P (MAP) Pulse Ox O2 Delivery O2 Flow Rate FiO2 02/07/19 07:00 99.4 97 16 105/60 (75) 96 Room Air 99.4 Physical Exam: PHYSICAL EXAM GENERAL: Propped up in bed, alert, NAD HEENT: Oral cavity clear NECK: Supple, no JVP, no lymphadenopathy. LUNGS: Clear. HEART: S1, S2 regular. ABDOMEN: Obese, soft, mildly tender, VIKY w/ sang drainage EXTREMITIES: No edema or cyanosis. SKIN: No rash. Multiple tattoos NEUROLOGIC: Alert, oriented PIV Medications: Inpatient Meds: Current Medications Medications (Trade) Dose Ordered Sig/Pierce Start Time Stop Time Status Last Admin Dose Admin Acetaminophen (Tylenol) 650 mg PRN Q6HRS PRN 02/04/19 19:30 02/05/19 00:14 325 MG Acetaminophen/ Hydrocodone Bitart (Lortab 10/325) 1 tab PRN Q6HRS PRN 01/29/19 18:45 01/31/19 23:58 DC 01/31/19 18:44 1 TAB Acetaminophen/ Hydrocodone Bitart (Lortab 5/325) 1 tab PRN Q4HRS PRN 01/29/19 16:00 01/29/19 18:45 DC 01/29/19 17:28 1 TAB Atorvastatin Calcium (Lipitor) 20 mg QHS 02/01/19 21:00 02/06/19 21:10 20 MG Bisacodyl (Dulcolax Supp) 10 mg STK-MED ONCE 01/29/19 07:15 01/29/19 08:16 DC 01/29/19 12:35 10 MG Bisacodyl (Dulcolax Tab) 5 mg PRN DAILY PRN 02/02/19 11:45 02/02/19 12:13 5 MG Bupivacaine HCl/ Epinephrine Bitart (Sensorcain-Mpf Epi 0.5%-1:[id number]) 30 ml STK-MED ONCE 01/29/19 07:14 01/29/19 08:15 DC 01/29/19 12:35 16 ML Buspirone HCl (Buspar) 30 mg BID 02/01/19 21:00 02/06/19 21:09 30 MG Cefazolin Sodium 3 gm/Dextrose 100 ml @ 200 mls/hr 1X ONCE 01/29/19 13:00 01/29/19 13:29 DC 01/29/19 12:09 200 MLS/HR Cefazolin Sodium/ Dextrose (Ancef 2gm Premix) 2 gm STK-MED ONCE 01/28/19 11:00 01/30/19 07:38 DC Cellulose (Surgicel Hemostat 2x3) 1 each STK-MED ONCE 01/29/19 07:14 01/29/19 08:15 DC 01/29/19 12:35 1 EACH Cellulose (Surgicel Hemostat 4x8) 1 each STK-MED ONCE 01/29/19 13:46 01/29/19 14:46 DC 01/29/19 12:35 1 EACH Dexamethasone Sodium Phosphate (Decadron) 4 mg STK-MED ONCE 01/29/19 11:35 01/29/19 11:36 DC Dextrose (Dextrose 50%-Water Syringe) 12.5 gm PRN Q15MIN PRN 01/29/19 16:00 Docusate Sodium (Colace) 100 mg BID 01/29/19 21:00 02/06/19 21:09 100 MG Enoxaparin Sodium (Lovenox 40mg Syringe) 40 mg Q12HR 02/02/19 14:00 02/06/19 21:17 40 MG Famotidine (Pepcid Vial) 20 mg 1X ONCE 01/29/19 16:15 01/29/19 16:16 DC 01/29/19 16:14 20 MG Fentanyl Citrate (Fentanyl 2ml Vial) 75 mcg PRN Q4HRS PRN 02/01/19 00:15 02/07/19 05:04 75 MCG Fluoxetine HCl (PROzac) 40 mg QHS 02/01/19 21:00 02/06/19 21:10 40 MG Glycopyrrolate (Robinul) 1 mg STK-MED ONCE 01/29/19 15:13 01/29/19 15:14 DC Haloperidol (Haldol) 10 mg DAILY 02/02/19 09:00 02/06/19 09:42 10 MG Heparin Sodium (Porcine) (Heparin Sodium) 10,000 unit STK-MED ONCE 01/29/19 07:14 01/29/19 08:15 DC 01/29/19 12:35 1,000 UNIT Info (CONTRAST GIVEN -- Rx MONITORING) 1 each PRN DAILY PRN 01/27/19 19:30 01/29/19 19:29 DC Iohexol (Omnipaque 240 Mg/ml) 30 ml 1X ONCE 01/27/19 19:15 01/27/19 19:16 DC 01/27/19 19:15 30 ML Iohexol (Omnipaque 300 Mg/ml) 50 ml STK-MED ONCE 01/29/19 12:36 01/29/19 13:37 DC 01/29/19 12:35 50 ML Ketorolac Tromethamine (Toradol 30mg Vial) 20 mg PRN Q6HRS PRN 01/28/19 08:15 02/02/19 08:14 DC 02/01/19 16:29 20 MG Ketorolac Tromethamine (Toradol For Or Only) 30 mg STK-MED ONCE 01/29/19 14:59 01/29/19 15:00 DC Lactobacillus Rhamnosus (Culturelle) 1 cap BID 02/04/19 21:00 02/06/19 21:10 1 CAP Lidocaine HCl (Lidocaine Pf 2% Vial) 5 ml STK-MED ONCE 01/29/19 11:34 01/29/19 11:35 DC Linezolid/Dextrose 300 ml @ 300 mls/hr Q12HR 02/03/19 11:00 02/06/19 21:11 300 MLS/HR Lisinopril (Prinivil) 2.5 mg DAILY 02/02/19 09:00 02/06/19 09:43 2.5 MG Metformin HCl (Glucophage) 500 mg BIDWMEALS 02/01/19 18:30 02/06/19 16:51 500 MG Micafungin Sodium 100 mg/Dextrose 100 ml @ 100 mls/hr Q24H 02/04/19 22:30 02/06/19 22:30 100 MLS/HR Mirtazapine (Remeron) 45 mg QHS 02/01/19 21:00 02/06/19 21:09 45 MG Morphine Sulfate (Morphine Sulfate) 2 mg PRN Q2HR PRN 01/28/19 08:15 01/28/19 08:23 DC Neostigmine Methylsulfate (Neostigmine Methylsulfate) 5 mg STK-MED ONCE 01/29/19 15:13 01/29/19 15:14 DC Olanzapine (ZyPREXA) 15 mg QHS 02/01/19 21:00 02/06/19 21:10 15 MG Ondansetron HCl (Zofran) 4 mg PRN Q6HRS PRN 01/29/19 16:00 02/03/19 15:27 4 MG Oxycodone/ Acetaminophen (Percocet 10/325) 1 tab PRN Q4HRS PRN 01/31/19 20:45 02/07/19 03:07 1 TAB Pantoprazole Sodium (Protonix) 40 mg DAILYAC 02/02/19 07:30 02/04/19 07:22 DC Piperacillin Sod/ Tazobactam Sod 3.375 gm/Sodium Chloride 50 ml @ 100 mls/hr Q6HRS 02/02/19 14:00 02/07/19 06:01 100 MLS/HR Polyethylene Glycol (miraLAX PACKET) 17 gm BID 02/02/19 21:00 02/06/19 21:09 17 GM Prochlorperazine Edisylate (Compazine) 5 mg PACU PRN PRN 01/29/19 07:00 01/29/19 19:00 DC Propofol 20 ml @ As Directed STK-MED ONCE 01/29/19 11:34 01/29/19 11:35 DC Ringer's Solution 1,000 ml @ 100 mls/hr Q10H 01/29/19 15:46 02/01/19 01:42 DC 01/31/19 16:36 100 MLS/HR Rocuronium [place] (Zemuron) 50 mg STK-MED ONCE 01/29/19 13:07 01/29/19 13:08 DC Sevoflurane (Ultane) 90 ml STK-MED ONCE 01/29/19 15:20 01/29/19 15:21 DC Sodium Chloride (Normal Saline Flush) 3 ml QSHIFT PRN 01/29/19 16:00 Succinylcholine Chloride (Anectine) 200 mg STK-MED ONCE 01/29/19 11:54 01/29/19 11:55 DC Labs: Micro BC neg Objective: Assessment: Fever improving Leukocytosis, improving Biliary leak, Status post cholecystectomy. Obesity. Hyperbilirubinemia. Plan: Plan of Care cont Zyvox, Zosyn and micafungin ERCP and stent planned for today Monitor temp and VIKY drainage f/u c/s and labs in am D/W RICCO COHEN MD February 07, 2019 09:57
--- NOTE | 2019-02-07 10:34 | PDOC ---
PROGRESS NOTES History of Present Illness History of Present Illness Assessment/Plan Jaundice with transaminitis and hyperbilirubinemia some variable appearance of intraluminal filling defects in the common bile duct although confidently seen on last image Round filling defect in the distal common bile duct is likely choledocholithiasis rather than mass,. There is biliary ductal dilatation. cholelithiasis. T2 hyperintense liver lesions are more likely due to hemangiomas or complex cysts with debris, persistent pain, mod severe, CONTINUES normocytic anemia FEVER OVERNIGHT 101.6 F 02/02 low grade temp / pm 100.1 EMESIS PM OF 02/02 Plan ercp today HIDA SCAN PENDING admitted general surgery and GI following abdominal ultrasound reviewed DVT prophylaxis full code home meds IV fluids when necessary Zofran when necessary prn narcotics prognosis guarded FOLLOW LFT'S, CBC, cbc in am, cont zosyn, add zyvox 32 MIN PT EXAM, chart review, > 50% of time spent with exam, chart review, pt care coordination Vitals Vitals Vital Signs Date Time Temp Pulse Resp B/P (MAP) Pulse Ox O2 Delivery O2 Flow Rate FiO2 02/07/19 10:15 Room Air 02/07/19 07:00 99.4 97 16 105/60 (75) 96 99.4 Physical Exam Physical Exam GENERAL: Propped up in bed, alert, NAD HEENT: Oral cavity clear NECK: Supple, no JVP, no lymphadenopathy. LUNGS: Clear. HEART: S1, S2 regular. ABDOMEN: Obese, soft, mildly tender, VIKY w/ sang drainage EXTREMITIES: No edema or cyanosis. SKIN: No rash. Multiple tattoos NEUROLOGIC: Alert, oriented PIV General: Alert, Oriented X3, Cooperative, No acute distress Heart: Regular rate, Normal S1, Normal S2, No murmurs Lungs: Clear Abdomen: Soft, Other (drain bilious) Extremities: No clubbing, No cyanosis Skin: Other (jaundice) Assessment and Plan Assessmemt and Plan Problems Medical Problems: (1) Common bile duct dilatation Status: Acute (2) Jaundice Status: Acute (3) Morbid obesity Status: Acute Comment Review of Relevant I have reviewed the following items gustavo (where applicable) has been applied. Labs Laboratory Tests Test 02/06/19 05:20 White Blood Count 13.1 x10^3/uL (4.0-11.0) Red Blood Count 2.55 x10^6/uL (4.30-5.70) Hemoglobin 8.0 g/dL (13.0-17.5) Hematocrit 24.5 % (39.0-53.0) Mean Corpuscular Volume 96 fL (79-100) Mean Corpuscular Hemoglobin 31 pg (25-35) Mean Corpuscular Hemoglobin Concent 33 g/dL (31-37) Red Cell Distribution Width 15.4 % (11.5-14.5) Platelet Count 476 x10^3/uL (140-400) Neutrophils (%) (Auto) 58 % (31-73) Lymphocytes (%) (Auto) 24 % (24-48) Monocytes (%) (Auto) 12 % (0-9) Eosinophils (%) (Auto) 6 % (0-3) Basophils (%) (Auto) 1 % (0-3) Neutrophils # (Auto) 7.6 x10^3uL (1.8-7.7) Lymphocytes # (Auto) 3.1 x10^3/uL (1.0-4.8) Monocytes # (Auto) 1.5 x10^3/uL (0.0-1.1) Eosinophils # (Auto) 0.7 x10^3/uL (0.0-0.7) Basophils # (Auto) 0.1 x10^3/uL (0.0-0.2) Prothrombin Time 13.6 SEC (11.7-14.0) Prothromb Time International Ratio 1.1 (0.8-1.1) Sodium Level 137 mmol/L (136-145) Potassium Level 3.8 mmol/L (3.5-5.1) Chloride Level 100 mmol/L (98-107) Carbon Dioxide Level 32 mmol/L (21-32) Anion Gap 5 (6-14) Blood Urea Nitrogen 6 mg/dL (8-26) Creatinine 1.1 mg/dL (0.7-1.3) Estimated GFR (Cockcroft-Gault) 75.3 BUN/Creatinine Ratio 5 (6-20) Glucose Level 147 mg/dL (70-99) Calcium Level 8.3 mg/dL (8.5-10.1) Total Bilirubin 1.1 mg/dL (0.2-1.0) Aspartate Amino Transf (AST/SGOT) 63 U/L (15-37) Alanine Aminotransferase (ALT/SGPT) 61 U/L (16-63) Alkaline Phosphatase 182 U/L (46-116) Total Protein 6.9 g/dL (6.4-8.2) Albumin 1.9 g/dL (3.4-5.0) Albumin/Globulin Ratio 0.4 (1.0-1.7) Microbiology 02/05/19 Blood Culture - Preliminary, Resulted NO GROWTH AFTER 2 DAYS Medications Current Medications Iohexol (Omnipaque 240 Mg/ml) 30 ml 1X ONCE PO Last administered on 01/27/19at 19:15; Start 01/27/19 at 19:15; Stop 01/27/19 at 19:16; Status DC Iohexol (Omnipaque 300 Mg/ml) 75 ml 1X ONCE IV Last administered on 01/27/19at 20:10; Start 01/27/19 at 19:15; Stop 01/27/19 at 19:16; Status DC Info (CONTRAST GIVEN -- Rx MONITORING) 1 each PRN DAILY PRN MC SEE COMMENTS; Start 01/27/19 at 19:30; Stop 01/29/19 at 19:29; Status DC Ketorolac Tromethamine (Toradol 30mg Vial) 30 mg 1X ONCE IV Last administered on 01/27/19at 22:02; Start 01/27/19 at 21:30; Stop 01/27/19 at 21:31; Status DC Sodium Chloride 1,000 ml @ 1,000 mls/hr 1X ONCE IV Last administered on 01/27/19at 21:58; Start 01/27/19 at 21:30; Stop 01/27/19 at 22:29; Status DC Sodium Chloride 1,000 ml @ 150 mls/hr Q6H40M IV Last administered on 01/28/19at 12:34; Start 01/27/19 at 22:00; Stop 01/28/19 at 21:59; Status DC Morphine Sulfate (Morphine Sulfate) 2 mg PRN Q2HR PRN IV PAIN; Start 01/28/19 at 08:15; Stop 01/28/19 at 08:23; Status DC Ketorolac Tromethamine (Toradol 30mg Vial) 20 mg PRN Q6HRS PRN IV MILD PAIN Last administered on 02/01/19at 16:29; Start 01/28/19 at 08:15; Stop 02/02/19 at 08:14; Status DC Fentanyl Citrate (Fentanyl 2ml Vial) 50 mcg PRN Q2HR PRN IV MODERATE PAIN, SEVERE PAIN Last administered on 01/29/19at 17:28; Start 01/28/19 at 08:30; Stop 01/29/19 at 18:44; Status DC Cefazolin Sodium/ Dextrose 50 ml @ 100 mls/hr 1X PREOP IV ; Start 01/28/19 at 15:45; Stop 01/29/19 at 10:14; Status DC Fentanyl Citrate (Fentanyl 2ml Vial) 25 mcg PRN Q5MIN PRN IV MILD PAIN; Start 01/29/19 at 07:00; Stop 01/29/19 at 19:00; Status DC Fentanyl Citrate (Fentanyl 2ml Vial) 50 mcg PRN Q5MIN PRN IV MODERATE TO SEVERE PAIN Last administered on 01/29/19at 16:32; Start 01/29/19 at 07:00; Stop 01/29/19 at 19:00; Status DC Ringer's Solution 1,000 ml @ 30 mls/hr Q24H IV Last administered on 01/29/19at 09:49; Start 01/29/19 at 07:00; Stop 01/29/19 at 18:59; Status DC Prochlorperazine Edisylate (Compazine) 5 mg PACU PRN PRN IV NAUSEA, MRX1; Start 01/29/19 at 07:00; Stop 01/29/19 at 19:00; Status DC Dextrose (Dextrose 50%-Water Syringe) 12.5 gm PRN Q15MIN PRN IV SEE COMMENTS; Start 01/28/19 at 19:45; Stop 01/30/19 at 13:49; Status DC Bupivacaine HCl/ Epinephrine Bitart (Sensorcain-Mpf Epi 0.5%-1:578740) 30 ml STK-MED ONCE .ROUTE Last administered on 01/29/19at 12:35; Start 01/29/19 at 07:14; Stop 01/29/19 at 08:15; Status DC Cellulose (Surgicel Hemostat 2x3) 1 each STK-MED ONCE .ROUTE Last administered on 01/29/19at 12:35; Start 01/29/19 at 07:14; Stop 01/29/19 at 08:15; Status DC Heparin Sodium (Porcine) (Heparin Sodium) 10,000 unit STK-MED ONCE .ROUTE Last administered on 01/29/19at 12:35; Start 01/29/19 at 07:14; Stop 01/29/19 at 08:15; Status DC Iohexol (Omnipaque 300 Mg/ml) 50 ml STK-MED ONCE .ROUTE Last administered on 01/29/19at 12:35; Start 01/29/19 at 07:14; Stop 01/29/19 at 08:16; Status DC Bisacodyl (Dulcolax Supp) 10 mg STK-MED ONCE .ROUTE Last administered on 01/29/19at 12:35; Start 01/29/19 at 07:15; Stop 01/29/19 at 08:16; Status DC Cefazolin Sodium/ Dextrose 50 ml @ 100 mls/hr 1X PREOP IV ; Start 01/29/19 at 10:15; Stop 01/29/19 at 18:56; Status DC Ondansetron HCl (Zofran) 4 mg STK-MED ONCE .ROUTE ; Start 01/29/19 at 11:34; Stop 01/29/19 at 11:35; Status DC Propofol 20 ml @ As Directed STK-MED ONCE IV ; Start 01/29/19 at 11:34; Stop 01/29/19 at 11:35; Status DC Lidocaine HCl (Lidocaine Pf 2% Vial) 5 ml STK-MED ONCE .ROUTE ; Start 01/29/19 at 11:34; Stop 01/29/19 at 11:35; Status DC Fentanyl Citrate (Fentanyl 2ml Vial) 100 mcg STK-MED ONCE .ROUTE ; Start 01/29/19 at 11:34; Stop 01/29/19 at 11:35; Status DC Dexamethasone Sodium Phosphate (Decadron) 4 mg STK-MED ONCE .ROUTE ; Start 01/29/19 at 11:35; Stop 01/29/19 at 11:36; Status DC Rocuronium [place] (Zemuron) 50 mg STK-MED ONCE .ROUTE ; Start 01/29/19 at 11:35; Stop 01/29/19 at 11:36; Status DC Succinylcholine Chloride (Anectine) 200 mg STK-MED ONCE .ROUTE ; Start 01/29/19 at 11:54; Stop 01/29/19 at 11:55; Status DC Cefazolin Sodium 100 ml @ As Directed STK-MED ONCE IV ; Start 01/29/19 at 12:06; Stop 01/29/19 at 12:07; Status DC Cefazolin Sodium 50 ml @ As Directed STK-MED ONCE IV ; Start 01/29/19 at 12:07; Stop 01/29/19 at 12:08; Status DC Cefazolin Sodium 3 gm/Dextrose 100 ml @ 200 mls/hr 1X ONCE IV Last administered on 01/29/19at 12:09; Start 01/29/19 at 13:00; Stop 01/29/19 at 13:29; Status DC Glycopyrrolate (Robinul) 1 mg STK-MED ONCE .ROUTE ; Start 01/29/19 at 12:57; Stop 01/29/19 at 12:58; Status DC Neostigmine Methylsulfate (Neostigmine Methylsulfate) 5 mg STK-MED ONCE .ROUTE ; Start 01/29/19 at 12:58; Stop 01/29/19 at 12:59; Status DC Rocuronium [place] (Zemuron) 50 mg STK-MED ONCE .ROUTE ; Start 01/29/19 at 13:07; Stop 01/29/19 at 13:08; Status DC Fentanyl Citrate (Fentanyl 2ml Vial) 100 mcg STK-MED ONCE .ROUTE ; Start 01/29/19 at 13:10; Stop 01/29/19 at 13:11; Status DC Iohexol (Omnipaque 300 Mg/ml) 50 ml STK-MED ONCE .ROUTE Last administered on 01/29/19at 12:35; Start 01/29/19 at 12:36; Stop 01/29/19 at 13:37; Status DC Cellulose (Surgicel Hemostat 4x8) 1 each STK-MED ONCE .ROUTE Last administered on 01/29/19at 12:35; Start 01/29/19 at 13:42; Stop 01/29/19 at 14:42; Status DC Cellulose (Surgicel Hemostat 4x8) 1 each STK-MED ONCE .ROUTE Last administered on 01/29/19at 12:35; Start 01/29/19 at 13:46; Stop 01/29/19 at 14:46; Status DC Ketorolac Tromethamine (Toradol For Or Only) 30 mg STK-MED ONCE INJ ; Start 01/29/19 at 14:59; Stop 01/29/19 at 15:00; Status DC Glycopyrrolate (Robinul) 1 mg STK-MED ONCE .ROUTE ; Start 01/29/19 at 15:13; Stop 01/29/19 at 15:14; Status DC Neostigmine Methylsulfate (Neostigmine Methylsulfate) 5 mg STK-MED ONCE .ROUTE ; Start 01/29/19 at 15:13; Stop 01/29/19 at 15:14; Status DC Sevoflurane (Ultane) 90 ml STK-MED ONCE IH ; Start 01/29/19 at 15:20; Stop 01/29/19 at 15:21; Status DC Fentanyl Citrate (Fentanyl 2ml Vial) 100 mcg STK-MED ONCE .ROUTE ; Start 01/29/19 at 15:32; Stop 01/29/19 at 15:33; Status DC Fentanyl Citrate (Fentanyl 2ml Vial) 100 mcg STK-MED ONCE .ROUTE ; Start 01/29/19 at 15:48; Stop 01/29/19 at 15:49; Status DC Sodium Chloride (Normal Saline Flush) 3 ml QSHIFT PRN IV AFTER MEDS AND BLOOD DRAWS; Start 01/29/19 at 16:00 Ringer's Solution 1,000 ml @ 100 mls/hr Q10H IV Last administered on 01/31/19at 16:36; Start 01/29/19 at 15:46; Stop 02/01/19 at 01:42; Status DC Dextrose (Dextrose 50%-Water Syringe) 12.5 gm PRN Q15MIN PRN IV SEE COMMENTS; Start 01/29/19 at 16:00 Acetaminophen/ Hydrocodone Bitart (Lortab 5/325) 1 tab PRN Q4HRS PRN PO MILD PAIN Last administered on 01/29/19at 17:28; Start 01/29/19 at 16:00; Stop 01/29/19 at 18:45; Status DC Docusate Sodium (Colace) 100 mg BID PO Last administered on 02/06/19at 21:09; Start 01/29/19 at 21:00 Ondansetron HCl (Zofran) 4 mg PRN Q6HRS PRN IV NAUESA, 1ST CHOICE Last a dministered on 02/03/19 15:27; Start 01/29/19 at 16:00 Famotidine (Pepcid Vial) 20 mg 1X ONCE IVP Last administered on 01/29/19 16:14; Start 01/29/19 at 16:15; Stop 01/29/19 at 16:16; Status DC Pantoprazole Sodium (Protonix) 40 mg DAILYAC PO Last administered on 02/06/19 09:42; Start 01/30/19 at 07:30 Fentanyl Citrate (Fentanyl 2ml Vial) 75 mcg PRN Q2HR PRN IV SEVERE PAIN Last administered on 02/01/19 00:09; Start 01/29/19 at 18:45; Stop 02/01/19 at 00:13; Status DC Acetaminophen/ Hydrocodone Bitart (Lortab 10/325) 1 tab PRN Q6HRS PRN PO MODERATE PAIN Last administered on 01/31/19 18:44; Start 01/29/19 at 18:45; Stop 01/31/19 at 23:58; Status DC Cefazolin Sodium/ Dextrose (Ancef 2gm Premix) 2 gm STK-MED ONCE IV ; Start 01/28/19 at 11:00; Stop 01/30/19 at 07:38; Status DC Oxycodone/ Acetaminophen (Percocet 10/325) 1 tab PRN Q4HRS PRN PO severe pain Last administered on 02/07/19 03:07; Start 01/31/19 at 20:45 Fentanyl Citrate (Fentanyl 2ml Vial) 75 mcg PRN Q4HRS PRN IV SEVERE PAIN Last administered on 02/07/19 10:15; Start 02/01/19 at 00:15 Atorvastatin Calcium (Lipitor) 20 mg QHS PO Last administered on 02/06/19 21:10; Start 02/01/19 at 21:00 Buspirone HCl (Buspar) 30 mg BID PO Last administered on 02/06/19 21:09; Start 02/01/19 at 21:00 Fluoxetine HCl (PROzac) 40 mg QHS PO Last administered on 02/06/19 21:10; Start 02/01/19 at 21:00 Haloperidol (Haldol) 10 mg DAILY PO Last administered on 02/06/19 09:42; Start 02/02/19 at 09:00 Lisinopril (Prinivil) 2.5 mg DAILY PO Last administered on 02/06/19 09:43; Start 02/02/19 at 09:00 Metformin HCl (Glucophage) 500 mg BIDWMEALS PO Last administered on 02/06/19 16:51; Start 02/01/19 at 18:30 Mirtazapine (Remeron) 45 mg QHS PO Last administered on 02/06/19 21:09; Start 02/01/19 at 21:00 Olanzapine (ZyPREXA) 15 mg QHS PO Last administered on 02/06/19 21:10; Start 02/01/19 at 21:00 Pantoprazole Sodium (Protonix) 40 mg DAILYAC PO ; Start 02/02/19 at 07:30; Stop 02/04/19 at 07:22; Status DC Polyethylene Glycol (miraLAX PACKET) 17 gm BID PO Last administered on 02/06/19 21:09; Start 02/02/19 at 21:00 Bisacodyl (Dulcolax Tab) 5 mg PRN DAILY PRN PO CONSTIPATION Last administered on 02/02/19 12:13; Start 02/02/19 at 11:45 Piperacillin Sod/ Tazobactam Sod 3.375 gm/Sodium Chloride 50 ml @ 100 mls/hr Q6HRS IV Last administered on 02/07/19 06:01; Start 02/02/19 at 14:00 Enoxaparin Sodium (Lovenox 40mg Syringe) 40 mg Q12HR SQ Last administered on 02/06/19 21:17; Start 02/02/19 at 14:00 Linezolid/Dextrose 300 ml @ 300 mls/hr Q12HR IV Last administered on 02/07/19 10:19; Start 02/03/19 at 11:00 Lactobacillus Rhamnosus (Culturelle) 1 cap BID PO Last administered on 02/06/19 21:10; Start 02/04/19 at 21:00 Acetaminophen (Tylenol) 650 mg PRN Q6HRS PRN PO FEVER Last administered on 02/05/19 00:14; Start 02/04/19 at 19:30 Micafungin Sodium 100 mg/Dextrose 100 ml @ 100 mls/hr Q24H IV Last administered on 02/06/19at 22:30; Start 02/04/19 at 22:30 Active Scripts Active Reported Buspirone Hcl 30 Mg Tablet 1 Tab PO BID Protonix (Pantoprazole Sodium) 20 Mg Tablet.dr 2 Tab PO DAILY Zantac (Ranitidine Hcl) 150 Mg Tablet 1 Tab PO HS Tums (Calcium Carbonate) 200 Mg Tab.chew 200 Mg PO TID Zyprexa (Olanzapine) 15 Mg Tablet 1 Tab PO QHS Remeron (Mirtazapine) 15 Mg Tablet 3 Tab PO QHS Lisinopril 2.5 Mg Tablet 1 Tab PO DAILY Atorvastatin Calcium 20 Mg Tablet 1 Tab PO DAILY Haloperidol 10 Mg Tablet 10 Mg PO DAILY Prozac (Fluoxetine Hcl) 40 Mg Capsule 1 Cap PO HS Metformin Hcl 500 Mg Tablet 500 Mg PO BIDWMEALS Vitals/I & O Vital Sign - Last 24 Hours 02/06/19 02/06/19 02/06/19 02/06/19 11:00 12:02 14:29 15:00 Temp 98.5 98.9 98.5 98.9 Pulse 99 77 Resp 16 18 B/P (MAP) 140/81 (100) 122/80 (94) Pulse Ox 97 95 O2 Delivery Room Air Room Air Room Air Room Air 02/06/19 02/06/19 02/06/19 02/06/19 16:51 18:37 19:00 20:00 Temp 99.9 99.9 Pulse 103 Resp 20 B/P (MAP) 113/77 (89) Pulse Ox 96 O2 Delivery Room Air Room Air Room Air Room Air 02/06/19 02/06/19 02/06/19 02/07/19 21:19 23:00 23:06 01:22 Temp 100.0 100.0 Pulse 104 Resp 20 20 20 B/P (MAP) 139/76 (97) Pulse Ox 95 O2 Delivery Room Air Room Air Room Air Room Air 02/07/19 02/07/19 02/07/19 02/07/19 03:00 03:07 04:07 05:04 Temp 98.1 98.1 Pulse 96 Resp 20 20 20 20 B/P (MAP) 135/81 (99) Pulse Ox 95 O2 Delivery Room Air Room Air Room Air Room Air 02/07/19 02/07/19 02/07/19 05:34 07:00 10:15 Temp 99.4 99.4 Pulse 97 Resp 20 16 B/P (MAP) 105/60 (75) Pulse Ox 96 O2 Delivery Room Air Room Air Room Air Intake and Output 02/06/19 02/06/19 02/07/19 15:00 23:00 07:00 Intake Total 720 ml 300 ml Output Total 770 ml 620 ml 210 ml Balance -770 ml 100 ml 90 ml BERNARDINO COX MD February 07, 2019 10:34
[2019-02-07 11:00] VITALS: BP 108/64
[2019-02-07] MEDS: IV RINGERS,LACTATED 1000ML 1,000 ML IV SCH ×2 (12:20→22:15)
[2019-02-07] MEDS ORDERED: IOHEXOL 300 MG/ML 100ML VIAL. ONE (12:39)
[2019-02-07] MEDS ORDERED: PROPOFOL 20 ML IV ONE (13:06)
[2019-02-07] MEDS ORDERED: LIDOCAINE 2% PF 5 ML VIAL. ONE (13:07)
[2019-02-07] MEDS ORDERED: IOHEXOL 350 MG/ML 100 ML VIAL. IV ONE (14:26)
--- NOTE | 2019-02-07 14:32 | PDOC4 ---
PROCEDURE Procedure ERCP/ES/balloon dilate/balloon stone extractions Indication: bile leak on HIDA Meds: GETA per anesthesia Findings: E, G, D normal to cursory exam. Papilla normal. CBD--stones present. PD not attempted. Generous sphincterotomy done; multiple stones with balloon sweep. Seemed to be another behind scope; could glimpse from papilla. Dilated sphincterotomy to 12mm. Multiple balloon sweeps and attempted basket. Unclear stone passed, but not visualized on last occlusion cholangiogram. Given generous cut, did not place stent. garth. well. IMP: choledocholithiasis bile leak. REC: Follow clinically, LFT If any question, MRCP. Thanks. HALEY CLARK MD February 07, 2019 14:32
[2019-02-07] MEDS ORDERED: SUCCINYLCHOLINE 200 MG/10 ML VIAL. ONE (15:00)
--- NOTE | 2019-02-07 15:08 | RAD ---
ERCP, 02/07/2019: HISTORY: Bile leak 3 spot films from surgery are presented for review. 8 minutes and 27 seconds of fluoroscopy time was utilized. Reportedly a sphincterotomy was performed with stone removal and balloon sweeping of the duct. On these limited views there is a rounded filling defect in the common bile duct near a dilated cystic duct remnant which probably represents a balloon catheter. A retained calculus is less likely. On the last images there is a collection of contrast projected along the inferior aspect of the cholecystectomy clips. It is unclear whether this represents extravasated contrast or contrast in the duodenum. Correlation with the procedural report is suggested. Electronically signed by: Guille Shaw MD (02/07/2019 3:05 PM) [facility]
--- NOTE | 2019-02-07 15:59 | NUR ---
metformin held due to contrast during ERCP
[2019-02-07] MEDS: PANTOPRAZOLE 40 MG TABLET.DR. PO SCH (16:05)
[2019-02-07] MEDS: HALOPERIDOL 5 MG TABLET. PO SCH (16:05)
[2019-02-07] MEDS: LISINOPRIL 5 MG TABLET. PO SCH (16:06)
[2019-02-07 19:00] VITALS: BP 117/69
[2019-02-07] MEDS: OLANZapine 5 MG TABLET PO SCH (20:55)
[2019-02-07] MEDS: MIRTAZAPINE 15 MG TABLET PO SCH (20:56)
[2019-02-07] MEDS: ATORVASTATIN CALCIUM 20 MG TABLET PO SCH (20:57)
[2019-02-07] MEDS: FLUoxetine HCL 20 MG CAPSULE PO SCH (20:57)
[2019-02-07] MEDS: MICAFUNGIN 100 MG in IV DEXTROSE 5% 100ML 100 ML IV SCH (22:17)
[2019-02-07 23:00] VITALS: BP 124/62
[2019-02-08] VITALS (7 sets, daily range): BP systolic 105–146; BP diastolic 55–95
[2019-02-08] MEDS: fentaNYL PF VIAL 100 MCG/2 ML VIAL IV PRN ×2 (00:02→06:08)
[2019-02-08] MEDS: oxyCODONE/APAP 10/325 1 TAB TABLET PO PRN ×5 (04:52→21:41)
[2019-02-08] MEDS: PIPERACILLIN/TAZOBACTAM 3.375 GM in IV NORMAL SALINE 50ML 50 ML IV SCH ×5 (06:07→17:33)
[2019-02-08 07:01] LABS: BASO % 0 % (0-3); EOS # 0.4 x10^3/uL (0.0-0.7); EOS % 3 % (0-3); HEMATOCRIT 23.1 % (39.0-53.0); HEMOGLOBIN 7.7 g/dL (13.0-17.5); LYMPH # 3.1 x10^3/uL (1.0-4.8); LYMPH % 26 % (24-48); MEAN CORPUSCULAR HEMOGLOBIN 32 pg (25-35); MEAN CORPUSCULAR HGB CONC 33 g/dL (31-37); MEAN CORPUSCULAR VOLUME 96 fL (79-100); MONO # 1.5 x10^3/uL (0.0-1.1); MONO % 12 % (0-9); NEUT # 7.2 x10^3uL (1.8-7.7); NEUT % 59 % (31-73); PLATELET COUNT 455 x10^3/uL (140-400); RED BLOOD COUNT 2.41 x10^6/uL (4.30-5.70); RED CELL DISTRIBUTION WIDTH 15.3 % (11.5-14.5); WHITE BLOOD COUNT 12.3 x10^3/uL (4.0-11.0)
[2019-02-08 07:23] LABS: ALBUMIN 1.8 g/dL (3.4-5.0); ALBUMIN/GLOBULIN RATIO 0.4 (1.0-1.7); CALCIUM 8.3 mg/dL (8.5-10.1); CREATININE 1.1 mg/dL (0.7-1.3); DIRECT BILIRUBIN 0.7 mg/dL (0.0-0.2); GFR 75.3; POTASSIUM 3.6 mmol/L (3.5-5.1); TOTAL BILIRUBIN 0.9 mg/dL (0.2-1.0); TOTAL PROTEIN 6.6 g/dL (6.4-8.2)
[2019-02-08] MEDS: PANTOPRAZOLE 40 MG TABLET.DR. PO SCH (07:35)
--- NOTE | 2019-02-08 08:47 | PDOC ---
Infectious Disease Note Subjective: Subjective Pt still has some abdo discomfort no fevers; T max 99.3 cont to have biliary drainage Denies N/V/chills D/W RN ROS: ROS Negative except for above. Vital Signs: Vital Signs Vital Signs Date Time Temp Pulse Resp B/P (MAP) Pulse Ox O2 Delivery O2 Flow Rate FiO2 02/08/19 07:00 98.3 99 17 112/55 (74) 97 Room Air 98.3 02/07/19 20:00 3.0 Physical Exam: PHYSICAL EXAM GENERAL: Propped up in bed, alert, NAD HEENT: Oral cavity clear NECK: Supple, no JVP, no lymphadenopathy. LUNGS: Clear. HEART: S1, S2 regular. ABDOMEN: Obese, soft, mildly tender, VIKY w/ sang drainage EXTREMITIES: No edema or cyanosis. SKIN: No rash. Multiple tattoos NEUROLOGIC: Alert, oriented PIV Medications: Inpatient Meds: Current Medications Medications (Trade) Dose Ordered Sig/Pierce Start Time Stop Time Status Last Admin Dose Admin Acetaminophen (Tylenol) 650 mg PRN Q6HRS PRN 02/04/19 19:30 02/05/19 00:14 325 MG Acetaminophen/ Hydrocodone Bitart (Lortab 10/325) 1 tab PRN Q6HRS PRN 01/29/19 18:45 01/31/19 23:58 DC 01/31/19 18:44 1 TAB Acetaminophen/ Hydrocodone Bitart (Lortab 5/325) 1 tab PRN Q4HRS PRN 01/29/19 16:00 01/29/19 18:45 DC 01/29/19 17:28 1 TAB Atorvastatin Calcium (Lipitor) 20 mg QHS 02/01/19 21:00 02/07/19 20:57 20 MG Bisacodyl (Dulcolax Supp) 10 mg STK-MED ONCE 01/29/19 07:15 01/29/19 08:16 DC 01/29/19 12:35 10 MG Bisacodyl (Dulcolax Tab) 5 mg PRN DAILY PRN 02/02/19 11:45 02/02/19 12:13 5 MG Bupivacaine HCl/ Epinephrine Bitart (Sensorcain-Mpf Epi 0.5%-1:983234) 30 ml STK-MED ONCE 01/29/19 07:14 01/29/19 08:15 DC 01/29/19 12:35 16 ML Buspirone HCl (Buspar) 30 mg BID 02/01/19 21:00 02/07/19 20:55 30 MG Cefazolin Sodium 3 gm/Dextrose 100 ml @ 200 mls/hr 1X ONCE 01/29/19 13:00 01/29/19 13:29 DC 01/29/19 12:09 200 MLS/HR Cefazolin Sodium/ Dextrose (Ancef 2gm Premix) 2 gm STK-MED ONCE 01/28/19 11:00 01/30/19 07:38 DC Cellulose (Surgicel Hemostat 2x3) 1 each STK-MED ONCE 01/29/19 07:14 01/29/19 08:15 DC 01/29/19 12:35 1 EACH Cellulose (Surgicel Hemostat 4x8) 1 each STK-MED ONCE 01/29/19 13:46 01/29/19 14:46 DC 01/29/19 12:35 1 EACH Dexamethasone Sodium Phosphate (Decadron) 4 mg STK-MED ONCE 01/29/19 11:35 01/29/19 11:36 DC Dextrose (Dextrose 50%-Water Syringe) 12.5 gm PRN Q15MIN PRN 01/29/19 16:00 Docusate Sodium (Colace) 100 mg BID 01/29/19 21:00 02/07/19 20:57 100 MG Enoxaparin Sodium (Lovenox 40mg Syringe) 40 mg Q12HR 02/02/19 14:00 02/07/19 20:56 40 MG Famotidine (Pepcid Vial) 20 mg 1X ONCE 01/29/19 16:15 01/29/19 16:16 DC 01/29/19 16:14 20 MG Fentanyl Citrate (Fentanyl 2ml Vial) 75 mcg PRN Q4HRS PRN 02/01/19 00:15 02/08/19 06:08 75 MCG Fluoxetine HCl (PROzac) 40 mg QHS 02/01/19 21:00 02/07/19 20:57 40 MG Glycopyrrolate (Robinul) 1 mg STK-MED ONCE 01/29/19 15:13 01/29/19 15:14 DC Haloperidol (Haldol) 10 mg DAILY 02/02/19 09:00 02/07/19 16:05 10 MG Heparin Sodium (Porcine) (Heparin Sodium) 10,000 unit STK-MED ONCE 01/29/19 07:14 01/29/19 08:15 DC 01/29/19 12:35 1,000 UNIT Info (CONTRAST GIVEN -- Rx MONITORING) 1 each PRN DAILY PRN 01/27/19 19:30 01/29/19 19:29 DC Iohexol (Omnipaque 240 Mg/ml) 30 ml 1X ONCE 01/27/19 19:15 01/27/19 19:16 DC 01/27/19 19:15 30 ML Iohexol (Omnipaque 300 Mg/ml) 50 ml STK-MED ONCE 01/29/19 12:36 01/29/19 13:37 DC 01/29/19 12:35 50 ML Iohexol (Omnipaque 350 Mg/ml) 100 ml STK-MED ONCE 02/07/19 14:26 02/07/19 14:43 DC 02/07/19 14:26 40 ML Ketorolac Tromethamine (Toradol 30mg Vial) 20 mg PRN Q6HRS PRN 01/28/19 08:15 02/02/19 08:14 DC 02/01/19 16:29 20 MG Ketorolac Tromethamine (Toradol For Or Only) 30 mg STK-MED ONCE 01/29/19 14:59 01/29/19 15:00 DC Lactobacillus Rhamnosus (Culturelle) 1 cap BID 02/04/19 21:00 02/07/19 20:57 1 CAP Lidocaine HCl (Lidocaine Pf 2% Vial) 5 ml STK-MED ONCE 01/29/19 11:34 01/29/19 11:35 DC Linezolid/Dextrose 300 ml @ 300 mls/hr Q12HR 02/03/19 11:00 02/07/19 20:57 300 MLS/HR Lisinopril (Prinivil) 2.5 mg DAILY 02/02/19 09:00 02/07/19 16:06 2.5 MG Metformin HCl (Glucophage) 500 mg BIDWMEALS 02/01/19 18:30 02/06/19 16:51 500 MG Micafungin Sodium 100 mg/Dextrose 100 ml @ 100 mls/hr Q24H 02/04/19 22:30 5/7/19 22:17 100 MLS/HR Mirtazapine (Remeron) 45 mg QHS 02/01/19 21:00 02/07/19 20:56 45 MG Morphine Sulfate (Morphine Sulfate) 2 mg PRN Q2HR PRN 01/28/19 08:15 01/28/19 08:23 DC Neostigmine Methylsulfate (Neostigmine Methylsulfate) 5 mg STK-MED ONCE 01/29/19 15:13 01/29/19 15:14 DC Olanzapine (ZyPREXA) 15 mg QHS 02/01/19 21:00 02/07/19 20:55 15 MG Ondansetron HCl (Zofran) 4 mg PRN Q6HRS PRN 01/29/19 16:00 02/03/19 15:27 4 MG Oxycodone/ Acetaminophen (Percocet 10/325) 1 tab PRN Q4HRS PRN 01/31/19 20:45 02/08/19 04:52 1 TAB Pantoprazole Sodium (Protonix) 40 mg DAILYAC 02/02/19 07:30 02/04/19 07:22 DC Piperacillin Sod/ Tazobactam Sod 3.375 gm/Sodium Chloride 50 ml @ 100 mls/hr Q6HRS 02/02/19 14:00 02/08/19 06:07 100 MLS/HR Polyethylene Glycol (miraLAX PACKET) 17 gm BID 02/02/19 21:00 02/07/19 20:57 17 GM Prochlorperazine Edisylate (Compazine) 5 mg PACU PRN PRN 01/29/19 07:00 01/29/19 19:00 DC Propofol 20 ml @ As Directed STK-MED ONCE 01/29/19 11:34 01/29/19 11:35 DC Ringer's Solution 1,000 ml @ 100 mls/hr Q10H 02/07/19 12:30 02/07/19 22:15 100 MLS/HR Rocuronium [place] (Zemuron) 50 mg STK-MED ONCE 01/29/19 13:07 01/29/19 13:08 DC Sevoflurane (Ultane) 90 ml STK-MED ONCE 01/29/19 15:20 01/29/19 15:21 DC Sodium Chloride (Normal Saline Flush) 3 ml QSHIFT PRN 01/29/19 16:00 Succinylcholine Chloride (Anectine) 200 mg STK-MED ONCE 02/07/19 15:00 02/08/19 08:21 DC Labs: Lab Laboratory Tests Test 02/08/19 05:40 White Blood Count 12.3 x10^3/uL (4.0-11.0) Red Blood Count 2.41 x10^6/uL (4.30-5.70) Hemoglobin 7.7 g/dL (13.0-17.5) Hematocrit 23.1 % (39.0-53.0) Mean Corpuscular Volume 96 fL (79-100) Mean Corpuscular Hemoglobin 32 pg (25-35) Mean Corpuscular Hemoglobin Concent 33 g/dL (31-37) Red Cell Distribution Width 15.3 % (11.5-14.5) Platelet Count 455 x10^3/uL (140-400) Neutrophils (%) (Auto) 59 % (31-73) Lymphocytes (%) (Auto) 26 % (24-48) Monocytes (%) (Auto) 12 % (0-9) Eosinophils (%) (Auto) 3 % (0-3) Basophils (%) (Auto) 0 % (0-3) Neutrophils # (Auto) 7.2 x10^3uL (1.8-7.7) Lymphocytes # (Auto) 3.1 x10^3/uL (1.0-4.8) Monocytes # (Auto) 1.5 x10^3/uL (0.0-1.1) Eosinophils # (Auto) 0.4 x10^3/uL (0.0-0.7) Basophils # (Auto) 0.0 x10^3/uL (0.0-0.2) Sodium Level 137 mmol/L (136-145) Potassium Level 3.6 mmol/L (3.5-5.1) Chloride Level 100 mmol/L (98-107) Carbon Dioxide Level 28 mmol/L (21-32) Anion Gap 9 (6-14) Blood Urea Nitrogen 6 mg/dL (8-26) Creatinine 1.1 mg/dL (0.7-1.3) Estimated GFR (Cockcroft-Gault) 75.3 BUN/Creatinine Ratio 5 (6-20) Glucose Level 131 mg/dL (70-99) Calcium Level 8.3 mg/dL (8.5-10.1) Total Bilirubin 0.9 mg/dL (0.2-1.0) Direct Bilirubin 0.7 mg/dL (0.0-0.2) Aspartate Amino Transf (AST/SGOT) 64 U/L (15-37) Alanine Aminotransferase (ALT/SGPT) 70 U/L (16-63) Alkaline Phosphatase 148 U/L (46-116) Total Protein 6.6 g/dL (6.4-8.2) Albumin 1.8 g/dL (3.4-5.0) Albumin/Globulin Ratio 0.4 (1.0-1.7) Micro BC neg Objective: Assessment: Fever improving Leukocytosis, improving Biliary leak Status post cholecystectomy.,s/p ERCP Obesity. Hyperbilirubinemia. Plan: Plan of Care cont Zyvox, Zosyn,Micafungin Monitor temp and VIKY drainage f/u c/s and labs in am D/W RICCO COHEN MD February 08, 2019 08:47
[2019-02-08] MEDS: POLYETHYLENE GLYCOL 3350 17 GM PACKET. PO SCH ×2 (09:01→21:37)
[2019-02-08] MEDS: HALOPERIDOL 5 MG TABLET. PO SCH (09:01)
[2019-02-08] MEDS: busPIRone 10 MG TABLET. PO SCH ×2 (09:01→21:37)
[2019-02-08] MEDS: metFORMIN 500 MG TABLET PO SCH ×2 (09:01→16:50)
[2019-02-08] MEDS: LACTOBACILLUS RHAMNOSUS GG 1 CAPSULE. PO SCH ×2 (09:01→21:38)
[2019-02-08] MEDS: DOCUSATE SODIUM 100 MG CAPSULE. PO SCH ×2 (09:02→21:37)
[2019-02-08] MEDS: ENOXAPARIN 40 MG/0.4 ML SYRINGE. SQ SCH ×2 (09:02→21:39)
[2019-02-08] MEDS: LISINOPRIL 5 MG TABLET. PO SCH (09:02)
[2019-02-08] MEDS: IV RINGERS,LACTATED 1000ML 1,000 ML IV SCH ×2 (09:07→21:36)
--- NOTE | 2019-02-08 10:15 | PDOC ---
PROGRESS NOTES History of Present Illness History of Present Illness Assessment/Plan Jaundice with transaminitis and hyperbilirubinemia some variable appearance of intraluminal filling defects in the common bile duct although confidently seen on last image Round filling defect in the distal common bile duct is likely choledocholithiasis rather than mass,. There is biliary ductal dilatation. cholelithiasis. T2 hyperintense liver lesions are more likely due to hemangiomas or complex cysts with debris, persistent pain, mod severe, CONTINUES normocytic anemia FEVER OVERNIGHT 101.6 F 02/02 low grade temp 02/04 pm 100.1 t max 99.1 02/07 EMESIS PM OF 02/02 Plan ercp 02/07 HIDA SCAN reviewed admitted general surgery and GI following abdominal ultrasound reviewed DVT prophylaxis full code home meds IV fluids when necessary Zofran when necessary prn narcotics prognosis guarded FOLLOW LFT'S, CBC, cbc in am, cont zosyn, add zyvox 42 MIN PT EXAM, chart review, > 50% of time spent with exam, chart review, pt care coordination Vitals Vitals Vital Signs Date Time Temp Pulse Resp B/P (MAP) Pulse Ox O2 Delivery O2 Flow Rate FiO2 02/08/19 10:13 16 Room Air 02/08/19 09:02 99 112/55 02/08/19 07:00 98.3 97 98.3 02/07/19 20:00 3.0 Physical Exam Physical Exam GENERAL: Propped up in bed, alert, NAD HEENT: Oral cavity clear NECK: Supple, no JVP, no lymphadenopathy. LUNGS: Clear. HEART: S1, S2 regular. ABDOMEN: Obese, soft, mildly tender, VIKY w/ sang drainage EXTREMITIES: No edema or cyanosis. SKIN: No rash. Multiple tattoos NEUROLOGIC: Alert, oriented PIV General: Alert, Oriented X3, Cooperative, No acute distress Heart: Regular rate, Normal S1, Normal S2, No murmurs Lungs: Clear Abdomen: Soft, Other (drain bilious) Extremities: No clubbing, No cyanosis Skin: Other (jaundice) Labs LABS Laboratory Tests Test 02/08/19 05:40 White Blood Count 12.3 x10^3/uL (4.0-11.0) Red Blood Count 2.41 x10^6/uL (4.30-5.70) Hemoglobin 7.7 g/dL (13.0-17.5) Hematocrit 23.1 % (39.0-53.0) Mean Corpuscular Volume 96 fL (79-100) Mean Corpuscular Hemoglobin 32 pg (25-35) Mean Corpuscular Hemoglobin Concent 33 g/dL (31-37) Red Cell Distribution Width 15.3 % (11.5-14.5) Platelet Count 455 x10^3/uL (140-400) Neutrophils (%) (Auto) 59 % (31-73) Lymphocytes (%) (Auto) 26 % (24-48) Monocytes (%) (Auto) 12 % (0-9) Eosinophils (%) (Auto) 3 % (0-3) Basophils (%) (Auto) 0 % (0-3) Neutrophils # (Auto) 7.2 x10^3uL (1.8-7.7) Lymphocytes # (Auto) 3.1 x10^3/uL (1.0-4.8) Monocytes # (Auto) 1.5 x10^3/uL (0.0-1.1) Eosinophils # (Auto) 0.4 x10^3/uL (0.0-0.7) Basophils # (Auto) 0.0 x10^3/uL (0.0-0.2) Sodium Level 137 mmol/L (136-145) Potassium Level 3.6 mmol/L (3.5-5.1) Chloride Level 100 mmol/L (98-107) Carbon Dioxide Level 28 mmol/L (21-32) Anion Gap 9 (6-14) Blood Urea Nitrogen 6 mg/dL (8-26) Creatinine 1.1 mg/dL (0.7-1.3) Estimated GFR (Cockcroft-Gault) 75.3 BUN/Creatinine Ratio 5 (6-20) Glucose Level 131 mg/dL (70-99) Calcium Level 8.3 mg/dL (8.5-10.1) Total Bilirubin 0.9 mg/dL (0.2-1.0) Direct Bilirubin 0.7 mg/dL (0.0-0.2) Aspartate Amino Transf (AST/SGOT) 64 U/L (15-37) Alanine Aminotransferase (ALT/SGPT) 70 U/L (16-63) Alkaline Phosphatase 148 U/L (46-116) Total Protein 6.6 g/dL (6.4-8.2) Albumin 1.8 g/dL (3.4-5.0) Albumin/Globulin Ratio 0.4 (1.0-1.7) Assessment and Plan Assessmemt and Plan Problems Medical Problems: (1) Common bile duct dilatation Status: Acute (2) Jaundice Status: Acute (3) Morbid obesity Status: Acute Comment Review of Relevant I have reviewed the following items gustavo (where applicable) has been applied. Labs Laboratory Tests Test 02/08/19 05:40 White Blood Count 12.3 x10^3/uL (4.0-11.0) Red Blood Count 2.41 x10^6/uL (4.30-5.70) Hemoglobin 7.7 g/dL (13.0-17.5) Hematocrit 23.1 % (39.0-53.0) Mean Corpuscular Volume 96 fL (79-100) Mean Corpuscular Hemoglobin 32 pg (25-35) Mean Corpuscular Hemoglobin Concent 33 g/dL (31-37) Red Cell Distribution Width 15.3 % (11.5-14.5) Platelet Count 455 x10^3/uL (140-400) Neutrophils (%) (Auto) 59 % (31-73) Lymphocytes (%) (Auto) 26 % (24-48) Monocytes (%) (Auto) 12 % (0-9) Eosinophils (%) (Auto) 3 % (0-3) Basophils (%) (Auto) 0 % (0-3) Neutrophils # (Auto) 7.2 x10^3uL (1.8-7.7) Lymphocytes # (Auto) 3.1 x10^3/uL (1.0-4.8) Monocytes # (Auto) 1.5 x10^3/uL (0.0-1.1) Eosinophils # (Auto) 0.4 x10^3/uL (0.0-0.7) Basophils # (Auto) 0.0 x10^3/uL (0.0-0.2) Sodium Level 137 mmol/L (136-145) Potassium Level 3.6 mmol/L (3.5-5.1) Chloride Level 100 mmol/L (98-107) Carbon Dioxide Level 28 mmol/L (21-32) Anion Gap 9 (6-14) Blood Urea Nitrogen 6 mg/dL (8-26) Creatinine 1.1 mg/dL (0.7-1.3) Estimated GFR (Cockcroft-Gault) 75.3 BUN/Creatinine Ratio 5 (6-20) Glucose Level 131 mg/dL (70-99) Calcium Level 8.3 mg/dL (8.5-10.1) Total Bilirubin 0.9 mg/dL (0.2-1.0) Direct Bilirubin 0.7 mg/dL (0.0-0.2) Aspartate Amino Transf (AST/SGOT) 64 U/L (15-37) Alanine Aminotransferase (ALT/SGPT) 70 U/L (16-63) Alkaline Phosphatase 148 U/L (46-116) Total Protein 6.6 g/dL (6.4-8.2) Albumin 1.8 g/dL (3.4-5.0) Albumin/Globulin Ratio 0.4 (1.0-1.7) Laboratory Tests Test 02/08/19 05:40 White Blood Count 12.3 x10^3/uL (4.0-11.0) Red Blood Count 2.41 x10^6/uL (4.30-5.70) Hemoglobin 7.7 g/dL (13.0-17.5) Hematocrit 23.1 % (39.0-53.0) Mean Corpuscular Volume 96 fL (79-100) Mean Corpuscular Hemoglobin 32 pg (25-35) Mean Corpuscular Hemoglobin Concent 33 g/dL (31-37) Red Cell Distribution Width 15.3 % (11.5-14.5) Platelet Count 455 x10^3/uL (140-400) Neutrophils (%) (Auto) 59 % (31-73) Lymphocytes (%) (Auto) 26 % (24-48) Monocytes (%) (Auto) 12 % (0-9) Eosinophils (%) (Auto) 3 % (0-3) Basophils (%) (Auto) 0 % (0-3) Neutrophils # (Auto) 7.2 x10^3uL (1.8-7.7) Lymphocytes # (Auto) 3.1 x10^3/uL (1.0-4.8) Monocytes # (Auto) 1.5 x10^3/uL (0.0-1.1) Eosinophils # (Auto) 0.4 x10^3/uL (0.0-0.7) Basophils # (Auto) 0.0 x10^3/uL (0.0-0.2) Sodium Level 137 mmol/L (136-145) Potassium Level 3.6 mmol/L (3.5-5.1) Chloride Level 100 mmol/L (98-107) Carbon Dioxide Level 28 mmol/L (21-32) Anion Gap 9 (6-14) Blood Urea Nitrogen 6 mg/dL (8-26) Creatinine 1.1 mg/dL (0.7-1.3) Estimated GFR (Cockcroft-Gault) 75.3 BUN/Creatinine Ratio 5 (6-20) Glucose Level 131 mg/dL (70-99) Calcium Level 8.3 mg/dL (8.5-10.1) Total Bilirubin 0.9 mg/dL (0.2-1.0) Direct Bilirubin 0.7 mg/dL (0.0-0.2) Aspartate Amino Transf (AST/SGOT) 64 U/L (15-37) Alanine Aminotransferase (ALT/SGPT) 70 U/L (16-63) Alkaline Phosphatase 148 U/L (46-116) Total Protein 6.6 g/dL (6.4-8.2) Albumin 1.8 g/dL (3.4-5.0) Albumin/Globulin Ratio 0.4 (1.0-1.7) Microbiology 02/05/19 Blood Culture - Preliminary, Resulted NO GROWTH AFTER 3 DAYS Medications Current Medications Iohexol (Omnipaque 240 Mg/ml) 30 ml 1X ONCE PO Last administered on 01/27/19at 19:15; Start 01/27/19 at 19:15; Stop 01/27/19 at 19:16; Status DC Iohexol (Omnipaque 300 Mg/ml) 75 ml 1X ONCE IV Last administered on 01/27/19at 20:10; Start 01/27/19 at 19:15; Stop 01/27/19 at 19:16; Status DC Info (CONTRAST GIVEN -- Rx MONITORING) 1 each PRN DAILY PRN MC SEE COMMENTS; Start 01/27/19 at 19:30; Stop 01/29/19 at 19:29; Status DC Ketorolac Tromethamine (Toradol 30mg Vial) 30 mg 1X ONCE IV Last administered on 01/27/19at 22:02; Start 01/27/19 at 21:30; Stop 01/27/19 at 21:31; Status DC Sodium Chloride 1,000 ml @ 1,000 mls/hr 1X ONCE IV Last administered on 01/27/19at 21:58; Start 01/27/19 at 21:30; Stop 01/27/19 at 22:29; Status DC Sodium Chloride 1,000 ml @ 150 mls/hr Q6H40M IV Last administered on 01/28/19at 12:34; Start 01/27/19 at 22:00; Stop 01/28/19 at 21:59; Status DC Morphine Sulfate (Morphine Sulfate) 2 mg PRN Q2HR PRN IV PAIN; Start 01/28/19 at 08:15; Stop 01/28/19 at 08:23; Status DC Ketorolac Tromethamine (Toradol 30mg Vial) 20 mg PRN Q6HRS PRN IV MILD PAIN Last administered on 02/01/19at 16:29; Start 01/28/19 at 08:15; Stop 02/02/19 at 08:14; Status DC Fentanyl Citrate (Fentanyl 2ml Vial) 50 mcg PRN Q2HR PRN IV MODERATE PAIN, SEVERE PAIN Last administered on 01/29/19at 17:28; Start 01/28/19 at 08:30; Stop 01/29/19 at 18:44; Status DC Cefazolin Sodium/ Dextrose 50 ml @ 100 mls/hr 1X PREOP IV ; Start 01/28/19 at 15:45; Stop 01/29/19 at 10:14; Status DC Fentanyl Citrate (Fentanyl 2ml Vial) 25 mcg PRN Q5MIN PRN IV MILD PAIN; Start 01/29/19 at 07:00; Stop 01/29/19 at 19:00; Status DC Fentanyl Citrate (Fentanyl 2ml Vial) 50 mcg PRN Q5MIN PRN IV MODERATE TO SEVERE PAIN Last administered on 01/29/19at 16:32; Start 01/29/19 at 07:00; Stop 01/29/19 at 19:00; Status DC Ringer's Solution 1,000 ml @ 30 mls/hr Q24H IV Last administered on 01/29/19at 09:49; Start 01/29/19 at 07:00; Stop 01/29/19 at 18:59; Status DC Prochlorperazine Edisylate (Compazine) 5 mg PACU PRN PRN IV NAUSEA, MRX1; Start 01/29/19 at 07:00; Stop 01/29/19 at 19:00; Status DC Dextrose (Dextrose 50%-Water Syringe) 12.5 gm PRN Q15MIN PRN IV SEE COMMENTS; Start 01/28/19 at 19:45; Stop 01/30/19 at 13:49; Status DC Bupivacaine HCl/ Epinephrine Bitart (Sensorcain-Mpf Epi 0.5%-[id number]) 30 ml STK-MED ONCE .ROUTE Last administered on 01/29/19at 12:35; Start 01/29/19 at 07:14; Stop 01/29/19 at 08:15; Status DC Cellulose (Surgicel Hemostat 2x3) 1 each STK-MED ONCE .ROUTE Last administered on 01/29/19at 12:35; Start 01/29/19 at 07:14; Stop 01/29/19 at 08:15; Status DC Heparin Sodium (Porcine) (Heparin Sodium) 10,000 unit STK-MED ONCE .ROUTE Last administered on 01/29/19at 12:35; Start 01/29/19 at 07:14; Stop 01/29/19 at 08:15; Status DC Iohexol (Omnipaque 300 Mg/ml) 50 ml STK-MED ONCE .ROUTE Last administered on 01/29/19at 12:35; Start 01/29/19 at 07:14; Stop 01/29/19 at 08:16; Status DC Bisacodyl (Dulcolax Supp) 10 mg STK-MED ONCE .ROUTE Last administered on 01/29/19at 12:35; Start 01/29/19 at 07:15; Stop 01/29/19 at 08:16; Status DC Cefazolin Sodium/ Dextrose 50 ml @ 100 mls/hr 1X PREOP IV ; Start 01/29/19 at 10:15; Stop 01/29/19 at 18:56; Status DC Ondansetron HCl (Zofran) 4 mg STK-MED ONCE .ROUTE ; Start 01/29/19 at 11:34; Stop 01/29/19 at 11:35; Status DC Propofol 20 ml @ As Directed STK-MED ONCE IV ; Start 01/29/19 at 11:34; Stop 01/29/19 at 11:35; Status DC Lidocaine HCl (Lidocaine Pf 2% Vial) 5 ml STK-MED ONCE .ROUTE ; Start 01/29/19 at 11:34; Stop 01/29/19 at 11:35; Status DC Fentanyl Citrate (Fentanyl 2ml Vial) 100 mcg STK-MED ONCE .ROUTE ; Start 01/29/19 at 11:34; Stop 01/29/19 at 11:35; Status DC Dexamethasone Sodium Phosphate (Decadron) 4 mg STK-MED ONCE .ROUTE ; Start 01/29/19 at 11:35; Stop 01/29/19 at 11:36; Status DC Rocuronium [place] (Zemuron) 50 mg STK-MED ONCE .ROUTE ; Start 01/29/19 at 11:35; Stop 01/29/19 at 11:36; Status DC Succinylcholine Chloride (Anectine) 200 mg STK-MED ONCE .ROUTE ; Start 01/29/19 at 11:54; Stop 01/29/19 at 11:55; Status DC Cefazolin Sodium 100 ml @ As Directed STK-MED ONCE IV ; Start 01/29/19 at 12:06; Stop 01/29/19 at 12:07; Status DC Cefazolin Sodium 50 ml @ As Directed STK-MED ONCE IV ; Start 01/29/19 at 12:07; Stop 01/29/19 at 12:08; Status DC Cefazolin Sodium 3 gm/Dextrose 100 ml @ 200 mls/hr 1X ONCE IV Last administered on 01/29/19at 12:09; Start 01/29/19 at 13:00; Stop 01/29/19 at 13:29; Status DC Glycopyrrolate (Robinul) 1 mg STK-MED ONCE .ROUTE ; Start 01/29/19 at 12:57; Stop 01/29/19 at 12:58; Status DC Neostigmine Methylsulfate (Neostigmine Methylsulfate) 5 mg STK-MED ONCE .ROUTE ; Start 01/29/19 at 12:58; Stop 01/29/19 at 12:59; Status DC Rocuronium [place] (Zemuron) 50 mg STK-MED ONCE .ROUTE ; Start 01/29/19 at 13:07; Stop 01/29/19 at 13:08; Status DC Fentanyl Citrate (Fentanyl 2ml Vial) 100 mcg STK-MED ONCE .ROUTE ; Start 01/29/19 at 13:10; Stop 01/29/19 at 13:11; Status DC Iohexol (Omnipaque 300 Mg/ml) 50 ml STK-MED ONCE .ROUTE Last administered on 01/29/19at 12:35; Start 01/29/19 at 12:36; Stop 01/29/19 at 13:37; Status DC Cellulose (Surgicel Hemostat 4x8) 1 each STK-MED ONCE .ROUTE Last administered on 01/29/19at 12:35; Start 01/29/19 at 13:42; Stop 01/29/19 at 14:42; Status DC Cellulose (Surgicel Hemostat 4x8) 1 each STK-MED ONCE .ROUTE Last administered on 01/29/19at 12:35; Start 01/29/19 at 13:46; Stop 01/29/19 at 14:46; Status DC Ketorolac Tromethamine (Toradol For Or Only) 30 mg STK-MED ONCE INJ ; Start 01/29/19 at 14:59; Stop 01/29/19 at 15:00; Status DC Glycopyrrolate (Robinul) 1 mg STK-MED ONCE .ROUTE ; Start 01/29/19 at 15:13; Stop 01/29/19 at 15:14; Status DC Neostigmine Methylsulfate (Neostigmine Methylsulfate) 5 mg STK-MED ONCE .ROUTE ; Start 01/29/19 at 15:13; Stop 01/29/19 at 15:14; Status DC Sevoflurane (Ultane) 90 ml STK-MED ONCE IH ; Start 01/29/19 at 15:20; Stop 01/29/19 at 15:21; Status DC Fentanyl Citrate (Fentanyl 2ml Vial) 100 mcg STK-MED ONCE .ROUTE ; Start 01/29/19 at 15:32; Stop 01/29/19 at 15:33; Status DC Fentanyl Citrate (Fentanyl 2ml Vial) 100 mcg STK-MED ONCE .ROUTE ; Start 01/29/19 at 15:48; Stop 01/29/19 at 15:49; Status DC Sodium Chloride (Normal Saline Flush) 3 ml QSHIFT PRN IV AFTER MEDS AND BLOOD DRAWS; Start 01/29/19 at 16:00 Ringer's Solution 1,000 ml @ 100 mls/hr Q10H IV Last administered on 01/31/19at 16:36; Start 01/29/19 at 15:46; Stop 02/01/19 at 01:42; Status DC Dextrose (Dextrose 50%-Water Syringe) 12.5 gm PRN Q15MIN PRN IV SEE COMMENTS; Start 01/29/19 at 16:00 Acetaminophen/ Hydrocodone Bitart (Lortab 5/325) 1 tab PRN Q4HRS PRN PO MILD PAIN Last administered on 01/29/19at 17:28; Start 01/29/19 at 16:00; Stop 01/29/19 at 18:45; Status DC Docusate Sodium (Colace) 100 mg BID PO Last administered on 02/08/19at 09:02; Start 01/29/19 at 21:00 Ondansetron HCl (Zofran) 4 mg PRN Q6HRS PRN IV NAUESA, 1ST CHOICE Last a dministered on 02/03/19at 15:27; Start 01/29/19 at 16:00 Famotidine (Pepcid Vial) 20 mg 1X ONCE IVP Last administered on 01/29/19at 16:14; Start 01/29/19 at 16:15; Stop 01/29/19 at 16:16; Status DC Pantoprazole Sodium (Protonix) 40 mg DAILYAC PO Last administered on 02/08/19at 07:35; Start 01/30/19 at 07:30 Fentanyl Citrate (Fentanyl 2ml Vial) 75 mcg PRN Q2HR PRN IV SEVERE PAIN Last administered on 02/01/19at 00:09; Start 01/29/19 at 18:45; Stop 02/01/19 at 00:13; Status DC Acetaminophen/ Hydrocodone Bitart (Lortab 10/325) 1 tab PRN Q6HRS PRN PO MODERATE PAIN Last administered on 01/31/19at 18:44; Start 01/29/19 at 18:45; Stop 01/31/19 at 23:58; Status DC Cefazolin Sodium/ Dextrose (Ancef 2gm Premix) 2 gm STK-MED ONCE IV ; Start 01/28/19 at 11:00; Stop 01/30/19 at 07:38; Status DC Oxycodone/ Acetaminophen (Percocet 10/325) 1 tab PRN Q4HRS PRN PO severe pain Last administered on 02/08/19 09:01; Start 01/31/19 at 20:45 Fentanyl Citrate (Fentanyl 2ml Vial) 75 mcg PRN Q4HRS PRN IV SEVERE PAIN Last administered on 02/08/19 06:08; Start 02/01/19 at 00:15 Atorvastatin Calcium (Lipitor) 20 mg QHS PO Last administered on 02/07/19 20:57; Start 02/01/19 at 21:00 Buspirone HCl (Buspar) 30 mg BID PO Last administered on 02/08/19 09:01; Start 02/01/19 at 21:00 Fluoxetine HCl (PROzac) 40 mg QHS PO Last administered on 02/07/19 20:57; Start 02/01/19 at 21:00 Haloperidol (Haldol) 10 mg DAILY PO Last administered on 02/08/19 09:01; Start 02/02/19 at 09:00 Lisinopril (Prinivil) 2.5 mg DAILY PO Last administered on 02/08/19 09:02; Start 02/02/19 at 09:00 Metformin HCl (Glucophage) 500 mg BIDWMEALS PO Last administered on 02/08/19 09:01; Start 02/01/19 at 18:30 Mirtazapine (Remeron) 45 mg QHS PO Last administered on 02/07/19 20:56; Start 02/01/19 at 21:00 Olanzapine (ZyPREXA) 15 mg QHS PO Last administered on 02/07/19 20:55; Start 02/01/19 at 21:00 Pantoprazole Sodium (Protonix) 40 mg DAILYAC PO ; Start 02/02/19 at 07:30; Stop 02/04/19 at 07:22; Status DC Polyethylene Glycol (miraLAX PACKET) 17 gm BID PO Last administered on 02/08/19 09:01; Start 02/02/19 at 21:00 Bisacodyl (Dulcolax Tab) 5 mg PRN DAILY PRN PO CONSTIPATION Last administered on 02/02/19 12:13; Start 02/02/19 at 11:45 Piperacillin Sod/ Tazobactam Sod 3.375 gm/Sodium Chloride 50 ml @ 100 mls/hr Q6HRS IV Last administered on 02/08/19 06:07; Start 02/02/19 at 14:00 Enoxaparin Sodium (Lovenox 40mg Syringe) 40 mg Q12HR SQ Last administered on 02/08/19 09:02; Start 02/02/19 at 14:00 Linezolid/Dextrose 300 ml @ 300 mls/hr Q12HR IV Last administered on 02/08/19 09:00; Start 02/03/19 at 11:00 Lactobacillus Rhamnosus (Culturelle) 1 cap BID PO Last administered on 02/08/19 09:01; Start 02/04/19 at 21:00 Acetaminophen (Tylenol) 650 mg PRN Q6HRS PRN PO FEVER Last administered on 02/05/19at 00:14; Start 02/04/19 at 19:30 Micafungin Sodium 100 mg/Dextrose 100 ml @ 100 mls/hr Q24H IV Last administered on 02/07/19 22:17; Start 02/04/19 at 22:30 Ringer's Solution 1,000 ml @ 100 mls/hr Q10H IV Last administered on 02/08/19 09:07; Start 02/07/19 at 12:30 Iohexol (Omnipaque 350 Mg/ml) 100 ml STK-MED ONCE IV Last administered on 02/07/19 14:26; Start 02/07/19 at 14:26; Stop 02/07/19 at 14:43; Status DC Succinylcholine Chloride (Anectine) 200 mg STK-MED ONCE .ROUTE ; Start 02/07/19 at 15:00; Stop 02/08/19 at 08:21; Status DC Active Scripts Active Reported Buspirone Hcl 30 Mg Tablet 1 Tab PO BID Protonix (Pantoprazole Sodium) 20 Mg Tablet.dr 2 Tab PO DAILY Zantac (Ranitidine Hcl) 150 Mg Tablet 1 Tab PO HS Tums (Calcium Carbonate) 200 Mg Tab.chew 200 Mg PO TID Zyprexa (Olanzapine) 15 Mg Tablet 1 Tab PO QHS Remeron (Mirtazapine) 15 Mg Tablet 3 Tab PO QHS Lisinopril 2.5 Mg Tablet 1 Tab PO DAILY Atorvastatin Calcium 20 Mg Tablet 1 Tab PO DAILY Haloperidol 10 Mg Tablet 10 Mg PO DAILY Prozac (Fluoxetine Hcl) 40 Mg Capsule 1 Cap PO HS Metformin Hcl 500 Mg Tablet 500 Mg PO BIDWMEALS Vitals/I & O Vital Sign - Last 24 Hours 02/07/19 02/07/19 02/07/19 02/07/19 11:00 12:11 12:14 14:54 Temp 98.1 98.0 98.0 98.1 98.0 98.0 Pulse 94 98 112 Resp 16 20 18 B/P (MAP) 108/64 (79) 127/73 Pulse Ox 99 94 99 O2 Delivery Room Air Room Air Simple Mask O2 Flow Rate 2.0 10 02/07/19 02/07/19 02/07/19 02/07/19 15:10 15:25 16:06 16:07 Pulse 112 113 113 Resp 20 20 B/P (MAP) 131/80 113/71 113/71 Pulse Ox 97 98 94 O2 Delivery Simple Mask Simple Mask Nasal Cannula O2 Flow Rate 5 3 3.0 02/07/19 02/07/19 02/07/19 02/07/19 17:45 19:00 20:00 22:16 Temp 99.0 99.0 Pulse 112 Resp 18 18 B/P (MAP) 117/69 (85) Pulse Ox 94 O2 Delivery Room Air Room Air Room Air Room Air O2 Flow Rate 3.0 02/07/19 02/08/19 02/08/19 02/08/19 23:00 00:02 00:32 03:00 Temp 99.3 98.8 99.3 98.8 Pulse 111 92 Resp 18 16 18 18 B/P (MAP) 124/62 (82) 126/68 (87) Pulse Ox 94 99 O2 Delivery Room Air Room Air Room Air 02/08/19 02/08/19 02/08/19 02/08/19 04:52 05:57 06:08 07:00 Temp 98.3 98.3 Pulse 99 Resp 18 18 17 B/P (MAP) 112/55 (74) Pulse Ox 99 99 97 O2 Delivery Room Air Room Air Room Air 02/08/19 02/08/19 02/08/19 09:01 09:02 10:13 Pulse 99 Resp 16 16 B/P (MAP) 112/55 O2 Delivery Room Air Room Air Intake and Output 02/07/19 02/07/19 02/08/19 15:00 23:00 07:00 Intake Total 1000 ml 900 ml 240 ml Output Total 300 ml Balance 700 ml 900 ml 240 ml BERNARDINO COX MD February 08, 2019 10:15
--- NOTE | 2019-02-08 11:51 | PDOC ---
Subjective: Subjective: Really wants to eat more. A little sore RUQ - stable. Objective: Vital Signs: Vital Signs Date Time Temp Pulse Resp B/P (MAP) Pulse Ox O2 Delivery O2 Flow Rate FiO2 02/08/19 10:13 16 Room Air 02/08/19 09:02 99 112/55 02/08/19 08:00 3.0 02/08/19 07:00 98.3 97 98.3 Labs: Laboratory Tests Test 02/08/19 05:40 White Blood Count 12.3 x10^3/uL Red Blood Count 2.41 x10^6/uL Hemoglobin 7.7 g/dL Hematocrit 23.1 % Mean Corpuscular Volume 96 fL Mean Corpuscular Hemoglobin 32 pg Mean Corpuscular Hemoglobin Concent 33 g/dL Red Cell Distribution Width 15.3 % Platelet Count 455 x10^3/uL Neutrophils (%) (Auto) 59 % Lymphocytes (%) (Auto) 26 % Monocytes (%) (Auto) 12 % Eosinophils (%) (Auto) 3 % Basophils (%) (Auto) 0 % Neutrophils # (Auto) 7.2 x10^3uL Lymphocytes # (Auto) 3.1 x10^3/uL Monocytes # (Auto) 1.5 x10^3/uL Eosinophils # (Auto) 0.4 x10^3/uL Basophils # (Auto) 0.0 x10^3/uL Sodium Level 137 mmol/L Potassium Level 3.6 mmol/L Chloride Level 100 mmol/L Carbon Dioxide Level 28 mmol/L Anion Gap 9 Blood Urea Nitrogen 6 mg/dL Creatinine 1.1 mg/dL Estimated GFR (Cockcroft-Gault) 75.3 BUN/Creatinine Ratio 5 Glucose Level 131 mg/dL Calcium Level 8.3 mg/dL Total Bilirubin 0.9 mg/dL Direct Bilirubin 0.7 mg/dL Aspartate Amino Transf (AST/SGOT) 64 U/L Alanine Aminotransferase (ALT/SGPT) 70 U/L Alkaline Phosphatase 148 U/L Total Protein 6.6 g/dL Albumin 1.8 g/dL Albumin/Globulin Ratio 0.4 BLOOD CULTURE Preliminary NO GROWTH AFTER 3 DAYS Imaging: ERCP 02/07 E, G, D normal to cursory exam. Papilla normal. CBD--stones present. PD not attempted. Generous sphincterotomy done; multiple stones with balloon sweep. Seemed to be another behind scope; could glimpse from papilla. Dilated sphincterotomy to 1 2mm. Multiple balloon sweeps and attempted basket. Unclear stone passed, but not visualized on last occlusion cholangiogram. Given generous cut, did not place stent. On imaging, round object at insertion of cystic duct; unclear stone, but not mobile when probed. IMP: choledocholithiasis bile leak. 3 spot films from surgery are presented for review. 8 minutes and 27 seconds of fluoroscopy time was utilized. Reportedly a sphincterotomy was performed with stone removal and balloon sweeping of the duct. On these limited views there is a rounded filling defect in the common bile duct near a dilated cystic duct remnant which probably represents a balloon catheter. A retained calculus is less likely. On the last images there is a collection of contrast projected along the inferior aspect of the cholecystectomy clips. It is unclear whether this represents extravasated contrast or contrast in the duodenum. Correlation with the procedural report is suggested. PE: GEN: NAD LUNGS: CTAB HEART: RRR ABD: NABS, S/ND/NT NEURO/PSYCH: A & O 3 A/P: S/p cholecystectomy and CBDE 01/29 S/p ERCP w/ sphincterotomy and stone extraction 02/07 -- Other per Dr. Valdes. DARREL MUELLER February 08, 2019 11:51
--- NOTE | 2019-02-08 16:07 | PDOC ---
SURGICAL PROGRESS NOTE Subjective Pt with c/o RUQ pain, mildly improved, garth PO Vital Signs Vital Signs Date Time Temp Pulse Resp B/P (MAP) Pulse Ox O2 Delivery O2 Flow Rate FiO2 02/08/19 14:50 16 Room Air 02/08/19 11:00 97.9 85 112/72 (85) 97 97.9 02/08/19 08:00 3.0 I&O Intake and Output 02/08/19 07:00 Intake Total 2140 ml Output Total 300 ml Balance 1840 ml Intake Oral 1140 ml IV Total 1000 ml Drainage Total 300 ml # Voids 3 General: Alert, Oriented X3, Cooperative, No acute distress Abdomen: Soft, No tenderness, Other (VIKY bilious) Labs Laboratory Tests Test 02/08/19 05:40 White Blood Count 12.3 x10^3/uL (4.0-11.0) Red Blood Count 2.41 x10^6/uL (4.30-5.70) Hemoglobin 7.7 g/dL (13.0-17.5) Hematocrit 23.1 % (39.0-53.0) Mean Corpuscular Volume 96 fL (79-100) Mean Corpuscular Hemoglobin 32 pg (25-35) Mean Corpuscular Hemoglobin Concent 33 g/dL (31-37) Red Cell Distribution Width 15.3 % (11.5-14.5) Platelet Count 455 x10^3/uL (140-400) Neutrophils (%) (Auto) 59 % (31-73) Lymphocytes (%) (Auto) 26 % (24-48) Monocytes (%) (Auto) 12 % (0-9) Eosinophils (%) (Auto) 3 % (0-3) Basophils (%) (Auto) 0 % (0-3) Neutrophils # (Auto) 7.2 x10^3uL (1.8-7.7) Lymphocytes # (Auto) 3.1 x10^3/uL (1.0-4.8) Monocytes # (Auto) 1.5 x10^3/uL (0.0-1.1) Eosinophils # (Auto) 0.4 x10^3/uL (0.0-0.7) Basophils # (Auto) 0.0 x10^3/uL (0.0-0.2) Sodium Level 137 mmol/L (136-145) Potassium Level 3.6 mmol/L (3.5-5.1) Chloride Level 100 mmol/L (98-107) Carbon Dioxide Level 28 mmol/L (21-32) Anion Gap 9 (6-14) Blood Urea Nitrogen 6 mg/dL (8-26) Creatinine 1.1 mg/dL (0.7-1.3) Estimated GFR (Cockcroft-Gault) 75.3 BUN/Creatinine Ratio 5 (6-20) Glucose Level 131 mg/dL (70-99) Calcium Level 8.3 mg/dL (8.5-10.1) Total Bilirubin 0.9 mg/dL (0.2-1.0) Direct Bilirubin 0.7 mg/dL (0.0-0.2) Aspartate Amino Transf (AST/SGOT) 64 U/L (15-37) Alanine Aminotransferase (ALT/SGPT) 70 U/L (16-63) Alkaline Phosphatase 148 U/L (46-116) Total Protein 6.6 g/dL (6.4-8.2) Albumin 1.8 g/dL (3.4-5.0) Albumin/Globulin Ratio 0.4 (1.0-1.7) Laboratory Tests Test 02/08/19 05:40 White Blood Count 12.3 x10^3/uL (4.0-11.0) Red Blood Count 2.41 x10^6/uL (4.30-5.70) Hemoglobin 7.7 g/dL (13.0-17.5) Hematocrit 23.1 % (39.0-53.0) Mean Corpuscular Volume 96 fL (79-100) Mean Corpuscular Hemoglobin 32 pg (25-35) Mean Corpuscular Hemoglobin Concent 33 g/dL (31-37) Red Cell Distribution Width 15.3 % (11.5-14.5) Platelet Count 455 x10^3/uL (140-400) Neutrophils (%) (Auto) 59 % (31-73) Lymphocytes (%) (Auto) 26 % (24-48) Monocytes (%) (Auto) 12 % (0-9) Eosinophils (%) (Auto) 3 % (0-3) Basophils (%) (Auto) 0 % (0-3) Neutrophils # (Auto) 7.2 x10^3uL (1.8-7.7) Lymphocytes # (Auto) 3.1 x10^3/uL (1.0-4.8) Monocytes # (Auto) 1.5 x10^3/uL (0.0-1.1) Eosinophils # (Auto) 0.4 x10^3/uL (0.0-0.7) Basophils # (Auto) 0.0 x10^3/uL (0.0-0.2) Sodium Level 137 mmol/L (136-145) Potassium Level 3.6 mmol/L (3.5-5.1) Chloride Level 100 mmol/L (98-107) Carbon Dioxide Level 28 mmol/L (21-32) Anion Gap 9 (6-14) Blood Urea Nitrogen 6 mg/dL (8-26) Creatinine 1.1 mg/dL (0.7-1.3) Estimated GFR (Cockcroft-Gault) 75.3 BUN/Creatinine Ratio 5 (6-20) Glucose Level 131 mg/dL (70-99) Calcium Level 8.3 mg/dL (8.5-10.1) Total Bilirubin 0.9 mg/dL (0.2-1.0) Direct Bilirubin 0.7 mg/dL (0.0-0.2) Aspartate Amino Transf (AST/SGOT) 64 U/L (15-37) Alanine Aminotransferase (ALT/SGPT) 70 U/L (16-63) Alkaline Phosphatase 148 U/L (46-116) Total Protein 6.6 g/dL (6.4-8.2) Albumin 1.8 g/dL (3.4-5.0) Albumin/Globulin Ratio 0.4 (1.0-1.7) Problem List Problems Medical Problems: (1) Common bile duct dilatation Status: Acute (2) Jaundice Status: Acute (3) Morbid obesity Status: Acute Assessment/Plan s/p lap bonita s/p ERCP with sphincterotomy labs improving cont drain and pain control JANA VITAL MD February 08, 2019 16:06
[2019-02-08] MEDS: OLANZapine 5 MG TABLET PO SCH (21:38)
[2019-02-08] MEDS: ATORVASTATIN CALCIUM 20 MG TABLET PO SCH (21:38)
[2019-02-08] MEDS: FLUoxetine HCL 20 MG CAPSULE PO SCH (21:38)
[2019-02-08] MEDS: MIRTAZAPINE 15 MG TABLET PO SCH (21:38)
[2019-02-08] MEDS: MICAFUNGIN 100 MG in IV DEXTROSE 5% 100ML 100 ML IV SCH (22:54)
[2019-02-09] MEDS: PIPERACILLIN/TAZOBACTAM 3.375 GM in IV NORMAL SALINE 50ML 50 ML IV SCH ×2 (00:30→05:35)
[2019-02-09] MEDS: oxyCODONE/APAP 10/325 1 TAB TABLET PO PRN ×5 (02:47→22:40)
[2019-02-09 03:00] VITALS: BP 130/70
[2019-02-09] MEDS: IV RINGERS,LACTATED 1000ML 1,000 ML IV SCH ×2 (04:30→14:30)
[2019-02-09] MEDS: PANTOPRAZOLE 40 MG TABLET.DR. PO SCH (05:34)
[2019-02-09 07:00] VITALS: BP 132/74
--- NOTE | 2019-02-09 07:44 | PDOC ---
Infectious Disease Note Subjective: Subjective Pt still has some abdo discomfort no fevers biliary drainage has been decreasing Denies N/V/chills D/W RN ROS: ROS Negative except for above. Vital Signs: Vital Signs Vital Signs Date Time Temp Pulse Resp B/P (MAP) Pulse Ox O2 Delivery O2 Flow Rate FiO2 02/09/19 04:00 16 Room Air 02/09/19 03:00 97.7 96 130/70 (90) 97 97.7 02/08/19 08:00 3.0 Physical Exam: PHYSICAL EXAM GENERAL: Propped up in bed, alert, NAD HEENT: Oral cavity clear NECK: Supple, no JVP, no lymphadenopathy. LUNGS: Clear. HEART: S1, S2 regular. ABDOMEN: Obese, soft, mildly tender, VIKY w/ sang drainage EXTREMITIES: No edema or cyanosis. SKIN: No rash. Multiple tattoos NEUROLOGIC: Alert, oriented PIV Medications: Inpatient Meds: Current Medications Medications (Trade) Dose Ordered Sig/Pierce Start Time Stop Time Status Last Admin Dose Admin Acetaminophen (Tylenol) 650 mg PRN Q6HRS PRN 02/04/19 19:30 02/05/19 00:14 325 MG Acetaminophen/ Hydrocodone Bitart (Lortab 10/325) 1 tab PRN Q6HRS PRN 01/29/19 18:45 01/31/19 23:58 DC 01/31/19 18:44 1 TAB Acetaminophen/ Hydrocodone Bitart (Lortab 5/325) 1 tab PRN Q4HRS PRN 01/29/19 16:00 01/29/19 18:45 DC 01/29/19 17:28 1 TAB Atorvastatin Calcium (Lipitor) 20 mg QHS 02/01/19 21:00 02/08/19 21:38 20 MG Bisacodyl (Dulcolax Supp) 10 mg STK-MED ONCE 01/29/19 07:15 01/29/19 08:16 DC 01/29/19 12:35 10 MG Bisacodyl (Dulcolax Tab) 5 mg PRN DAILY PRN 02/02/19 11:45 02/02/19 12:13 5 MG Bupivacaine HCl/ Epinephrine Bitart (Sensorcain-Mpf Epi 0.5%-1:[id number]) 30 ml STK-MED ONCE 01/29/19 07:14 01/29/19 08:15 DC 01/29/19 12:35 16 ML Buspirone HCl (Buspar) 30 mg BID 02/01/19 21:00 02/08/19 21:37 30 MG Cefazolin Sodium 3 gm/Dextrose 100 ml @ 200 mls/hr 1X ONCE 01/29/19 13:00 01/29/19 13:29 DC 01/29/19 12:09 200 MLS/HR Cefazolin Sodium/ Dextrose (Ancef 2gm Premix) 2 gm STK-MED ONCE 01/28/19 11:00 01/30/19 07:38 DC Cellulose (Surgicel Hemostat 2x3) 1 each STK-MED ONCE 01/29/19 07:14 01/29/19 08:15 DC 01/29/19 12:35 1 EACH Cellulose (Surgicel Hemostat 4x8) 1 each STK-MED ONCE 01/29/19 13:46 01/29/19 14:46 DC 01/29/19 12:35 1 EACH Dexamethasone Sodium Phosphate (Decadron) 4 mg STK-MED ONCE 01/29/19 11:35 01/29/19 11:36 DC Dextrose (Dextrose 50%-Water Syringe) 12.5 gm PRN Q15MIN PRN 01/29/19 16:00 Docusate Sodium (Colace) 100 mg BID 01/29/19 21:00 02/08/19 21:37 100 MG Enoxaparin Sodium (Lovenox 40mg Syringe) 40 mg Q12HR 02/02/19 14:00 02/08/19 21:39 40 MG Famotidine (Pepcid Vial) 20 mg 1X ONCE 01/29/19 16:15 01/29/19 16:16 DC 01/29/19 16:14 20 MG Fentanyl Citrate (Fentanyl 2ml Vial) 75 mcg PRN Q4HRS PRN 02/01/19 00:15 02/08/19 06:08 75 MCG Fluoxetine HCl (PROzac) 40 mg QHS 02/01/19 21:00 02/08/19 21:38 40 MG Glycopyrrolate (Robinul) 1 mg STK-MED ONCE 01/29/19 15:13 01/29/19 15:14 DC Haloperidol (Haldol) 10 mg DAILY 02/02/19 09:00 02/08/19 09:01 10 MG Heparin Sodium (Porcine) (Heparin Sodium) 10,000 unit STK-MED ONCE 01/29/19 07:14 01/29/19 08:15 DC 01/29/19 12:35 1,000 UNIT Info (CONTRAST GIVEN -- Rx MONITORING) 1 each PRN DAILY PRN 01/27/19 19:30 01/29/19 19:29 DC Iohexol (Omnipaque 240 Mg/ml) 30 ml 1X ONCE 01/27/19 19:15 01/27/19 19:16 DC 01/27/19 19:15 30 ML Iohexol (Omnipaque 300 Mg/ml) 50 ml STK-MED ONCE 01/29/19 12:36 01/29/19 13:37 DC 01/29/19 12:35 50 ML Iohexol (Omnipaque 350 Mg/ml) 100 ml STK-MED ONCE 02/07/19 14:26 02/07/19 14:43 DC 02/07/19 14:26 40 ML Ketorolac Tromethamine (Toradol 30mg Vial) 20 mg PRN Q6HRS PRN 01/28/19 08:15 02/02/19 08:14 DC 02/01/19 16:29 20 MG Ketorolac Tromethamine (Toradol For Or Only) 30 mg STK-MED ONCE 01/29/19 14:59 01/29/19 15:00 DC Lactobacillus Rhamnosus (Culturelle) 1 cap BID 02/04/19 21:00 02/08/19 21:38 1 CAP Lidocaine HCl (Lidocaine Pf 2% Vial) 5 ml STK-MED ONCE 01/29/19 11:34 01/29/19 11:35 DC Linezolid/Dextrose 300 ml @ 300 mls/hr Q12HR 02/03/19 11:00 02/08/19 21:37 300 MLS/HR Lisinopril (Prinivil) 2.5 mg DAILY 02/02/19 09:00 02/08/19 09:02 2.5 MG Metformin HCl (Glucophage) 500 mg [id number] 02/01/19 18:30 02/08/19 16:50 500 MG Micafungin Sodium 100 mg/Dextrose 100 ml @ 100 mls/hr Q24H 02/04/19 22:30 02/08/19 22:54 100 MLS/HR Mirtazapine (Remeron) 45 mg QHS 02/01/19 21:00 02/08/19 21:38 45 MG Morphine Sulfate (Morphine Sulfate) 2 mg PRN Q2HR PRN 01/28/19 08:15 01/28/19 08:23 DC Neostigmine Methylsulfate (Neostigmine Methylsulfate) 5 mg STK-MED ONCE 01/29/19 15:13 01/29/19 15:14 DC Olanzapine (ZyPREXA) 15 mg QHS 02/01/19 21:00 02/08/19 21:38 15 MG Ondansetron HCl (Zofran) 4 mg PRN Q6HRS PRN 01/29/19 16:00 02/03/19 15:27 4 MG Oxycodone/ Acetaminophen (Percocet 10/325) 1 tab PRN Q4HRS PRN 01/31/19 20:45 02/09/19 02:47 1 TAB Pantoprazole Sodium (Protonix) 40 mg DAILYAC 02/02/19 07:30 02/04/19 07:22 DC Piperacillin Sod/ Tazobactam Sod 3.375 gm/Sodium Chloride 50 ml @ 100 mls/hr Q6HRS 02/02/19 14:00 02/09/19 05:35 100 MLS/HR Polyethylene Glycol (miraLAX PACKET) 17 gm BID 02/02/19 21:00 02/08/19 21:37 17 GM Prochlorperazine Edisylate (Compazine) 5 mg PACU PRN PRN 01/29/19 07:00 01/29/19 19:00 DC Propofol 20 ml @ As Directed STK-MED ONCE 01/29/19 11:34 01/29/19 11:35 DC Ringer's Solution 1,000 ml @ 100 mls/hr Q10H 02/07/19 12:30 02/08/19 21:36 100 MLS/HR Rocuronium [place] (Zemuron) 50 mg STK-MED ONCE 01/29/19 13:07 01/29/19 13:08 DC Sevoflurane (Ultane) 90 ml STK-MED ONCE 01/29/19 15:20 01/29/19 15:21 DC Sodium Chloride (Normal Saline Flush) 3 ml QSHIFT PRN 01/29/19 16:00 Succinylcholine Chloride (Anectine) 200 mg STK-MED ONCE 02/07/19 15:00 02/08/19 08:21 DC Labs: Micro BC neg Objective: Assessment: Fever improving Leukocytosis, improving Biliary leak S/P cholecystectomy and CBDE 01/29 S/p ERCP w/ sphincterotomy and stone extraction 02/07 Obesity. Hyperbilirubinemia. Plan: Plan of Care DC Zyvox, Zosyn, micafungin will start pt to augmentin Monitor temp and VIKY drainage f/u c/s and labs in am D/W RICCO COHEN MD February 09, 2019 07:44
[2019-02-09] MEDS: POLYETHYLENE GLYCOL 3350 17 GM PACKET. PO SCH ×2 (08:52→21:04)
[2019-02-09] MEDS: DOCUSATE SODIUM 100 MG CAPSULE. PO SCH ×2 (08:52→21:00)
[2019-02-09] MEDS: metFORMIN 500 MG TABLET PO SCH ×2 (09:30→16:53)
[2019-02-09] MEDS: LACTOBACILLUS RHAMNOSUS GG 1 CAPSULE. PO SCH ×2 (09:30→21:04)
[2019-02-09] MEDS: AMOXICILLIN/K CLAV 875/125MG TABLET. PO SCH ×2 (09:30→21:03)
[2019-02-09] MEDS: busPIRone 10 MG TABLET. PO SCH ×2 (09:30→21:03)
[2019-02-09] MEDS: HALOPERIDOL 5 MG TABLET. PO SCH (09:31)
[2019-02-09] MEDS: ENOXAPARIN 40 MG/0.4 ML SYRINGE. SQ SCH ×2 (09:32→21:05)
[2019-02-09] MEDS: LISINOPRIL 5 MG TABLET. PO SCH (09:32)
--- NOTE | 2019-02-09 09:55 | PDOC ---
[facility] PROGRESS NOTE Chief Complaint Chief Complaint Jaundice with transaminitis and hyperbilirubinemia Common bile duct dilatation Cholelithiasis. S/P cholecystectomy and CBDE 01/29 S/p ERCP w/ sphincterotomy and stone extraction 02/07 Leukocytosis Obesity History of Present Illness History of Present Illness Patient seen and examined VIKY tube examined Patient feeling well in NAD Waiting for resolution of infection Vitals Vitals Vital Signs Date Time Temp Pulse Resp B/P (MAP) Pulse Ox O2 Delivery O2 Flow Rate FiO2 02/09/19 09:33 16 Room Air 02/09/19 09:32 90 132/74 02/09/19 07:00 98.6 96 98.6 02/08/19 08:00 3.0 Physical Exam Physical Exam GENERAL: Propped up in bed, alert, NAD HEENT: Oral cavity clear NECK: Supple, no JVP, no lymphadenopathy. LUNGS: Clear. HEART: S1, S2 regular. ABDOMEN: Obese, soft, mildly tender, VIKY w/ sang drainage EXTREMITIES: No edema or cyanosis. SKIN: No rash. Multiple tattoos NEUROLOGIC: Alert, oriented PIV General: Alert, Oriented X3, Cooperative, No acute distress Heart: Regular rate, Normal S1, Normal S2, No murmurs Lungs: Clear Abdomen: Soft, No tenderness, Other (VIKY bilious) Extremities: No clubbing, No cyanosis Skin: Other (jaundice) Review of Systems Review of Systems Pt has noted leg swelling (non-pitting) Pt notes cough Assessment and Plan Assessmemt and Plan Problems Medical Problems: (1) Common bile duct dilatation Status: Acute (2) Jaundice Status: Acute (3) Morbid obesity Status: Acute Assessment: Jaundice with transaminitis and hyperbilirubinemia Common bile duct dilatation Cholelithiasis. S/P cholecystectomy and CBDE 01/29 S/p ERCP w/ sphincterotomy and stone extraction 02/07 Leukocytosis Obesity Plan: Hope to advance diet VIKY tube removal when specialists agree IV antibiotics Labs DVT ppx full code Comment Review of Relevant I have reviewed the following items gustavo (where applicable) has been applied. Labs Laboratory Tests Test 02/08/19 05:40 White Blood Count 12.3 x10^3/uL (4.0-11.0) Red Blood Count 2.41 x10^6/uL (4.30-5.70) Hemoglobin 7.7 g/dL (13.0-17.5) Hematocrit 23.1 % (39.0-53.0) Mean Corpuscular Volume 96 fL (79-100) Mean Corpuscular Hemoglobin 32 pg (25-35) Mean Corpuscular Hemoglobin Concent 33 g/dL (31-37) Red Cell Distribution Width 15.3 % (11.5-14.5) Platelet Count 455 x10^3/uL (140-400) Neutrophils (%) (Auto) 59 % (31-73) Lymphocytes (%) (Auto) 26 % (24-48) Monocytes (%) (Auto) 12 % (0-9) Eosinophils (%) (Auto) 3 % (0-3) Basophils (%) (Auto) 0 % (0-3) Neutrophils # (Auto) 7.2 x10^3uL (1.8-7.7) Lymphocytes # (Auto) 3.1 x10^3/uL (1.0-4.8) Monocytes # (Auto) 1.5 x10^3/uL (0.0-1.1) Eosinophils # (Auto) 0.4 x10^3/uL (0.0-0.7) Basophils # (Auto) 0.0 x10^3/uL (0.0-0.2) Sodium Level 137 mmol/L (136-145) Potassium Level 3.6 mmol/L (3.5-5.1) Chloride Level 100 mmol/L (98-107) Carbon Dioxide Level 28 mmol/L (21-32) Anion Gap 9 (6-14) Blood Urea Nitrogen 6 mg/dL (8-26) Creatinine 1.1 mg/dL (0.7-1.3) Estimated GFR (Cockcroft-Gault) 75.3 BUN/Creatinine Ratio 5 (6-20) Glucose Level 131 mg/dL (70-99) Calcium Level 8.3 mg/dL (8.5-10.1) Total Bilirubin 0.9 mg/dL (0.2-1.0) Direct Bilirubin 0.7 mg/dL (0.0-0.2) Aspartate Amino Transf (AST/SGOT) 64 U/L (15-37) Alanine Aminotransferase (ALT/SGPT) 70 U/L (16-63) Alkaline Phosphatase 148 U/L (46-116) Total Protein 6.6 g/dL (6.4-8.2) Albumin 1.8 g/dL (3.4-5.0) Albumin/Globulin Ratio 0.4 (1.0-1.7) Microbiology 02/05/19 Blood Culture - Preliminary, Resulted NO GROWTH AFTER 4 DAYS Medications Current Medications Iohexol (Omnipaque 240 Mg/ml) 30 ml 1X ONCE PO Last administered on 01/27/19at 19:15; Start 01/27/19 at 19:15; Stop 01/27/19 at 19:16; Status DC Iohexol (Omnipaque 300 Mg/ml) 75 ml 1X ONCE IV Last administered on 01/27/19at 20:10; Start 01/27/19 at 19:15; Stop 01/27/19 at 19:16; Status DC Info (CONTRAST GIVEN -- Rx MONITORING) 1 each PRN DAILY PRN MC SEE COMMENTS; Start 01/27/19 at 19:30; Stop 01/29/19 at 19:29; Status DC Ketorolac Tromethamine (Toradol 30mg Vial) 30 mg 1X ONCE IV Last administered on 01/27/19at 22:02; Start 01/27/19 at 21:30; Stop 01/27/19 at 21:31; Status DC Sodium Chloride 1,000 ml @ 1,000 mls/hr 1X ONCE IV Last administered on 01/27/19at 21:58; Start 01/27/19 at 21:30; Stop 01/27/19 at 22:29; Status DC Sodium Chloride 1,000 ml @ 150 mls/hr Q6H40M IV Last administered on 01/28/19at 12:34; Start 01/27/19 at 22:00; Stop 01/28/19 at 21:59; Status DC Morphine Sulfate (Morphine Sulfate) 2 mg PRN Q2HR PRN IV PAIN; Start 01/28/19 at 08:15; Stop 01/28/19 at 08:23; Status DC Ketorolac Tromethamine (Toradol 30mg Vial) 20 mg PRN Q6HRS PRN IV MILD PAIN Last administered on 02/01/19at 16:29; Start 01/28/19 at 08:15; Stop 02/02/19 at 08:14; Status DC Fentanyl Citrate (Fentanyl 2ml Vial) 50 mcg PRN Q2HR PRN IV MODERATE PAIN, SEVERE PAIN Last administered on 01/29/19 17:28; Start 01/28/19 at 08:30; Stop 01/29/19 at 18:44; Status DC Cefazolin Sodium/ Dextrose 50 ml @ 100 mls/hr 1X PREOP IV ; Start 01/28/19 at 15:45; Stop 01/29/19 at 10:14; Status DC Fentanyl Citrate (Fentanyl 2ml Vial) 25 mcg PRN Q5MIN PRN IV MILD PAIN; Start 01/29/19 at 07:00; Stop 01/29/19 at 19:00; Status DC Fentanyl Citrate (Fentanyl 2ml Vial) 50 mcg PRN Q5MIN PRN IV MODERATE TO SEVERE PAIN Last administered on 01/29/19at 16:32; Start 01/29/19 at 07:00; Stop 01/29/19 at 19:00; Status DC Ringer's Solution 1,000 ml @ 30 mls/hr Q24H IV Last administered on 01/29/19 09:49; Start 01/29/19 at 07:00; Stop 01/29/19 at 18:59; Status DC Prochlorperazine Edisylate (Compazine) 5 mg PACU PRN PRN IV NAUSEA, MRX1; Start 01/29/19 at 07:00; Stop 01/29/19 at 19:00; Status DC Dextrose (Dextrose 50%-Water Syringe) 12.5 gm PRN Q15MIN PRN IV SEE COMMENTS; Start 01/28/19 at 19:45; Stop 01/30/19 at 13:49; Status DC Bupivacaine HCl/ Epinephrine Bitart (Sensorcain-Mpf Epi 0.5%-[id number]) 30 ml STK-MED ONCE .ROUTE Last administered on 01/29/19 12:35; Start 01/29/19 at 07:14; Stop 01/29/19 at 08:15; Status DC Cellulose (Surgicel Hemostat 2x3) 1 each STK-MED ONCE .ROUTE Last administered on 01/29/19 12:35; Start 01/29/19 at 07:14; Stop 01/29/19 at 08:15; Status DC Heparin Sodium (Porcine) (Heparin Sodium) 10,000 unit STK-MED ONCE .ROUTE Last administered on 01/29/19at 12:35; Start 01/29/19 at 07:14; Stop 01/29/19 at 08:15; Status DC Iohexol (Omnipaque 300 Mg/ml) 50 ml STK-MED ONCE .ROUTE Last administered on 01/29/19at 12:35; Start 01/29/19 at 07:14; Stop 01/29/19 at 08:16; Status DC Bisacodyl (Dulcolax Supp) 10 mg STK-MED ONCE .ROUTE Last administered on 01/29/19at 12:35; Start 01/29/19 at 07:15; Stop 01/29/19 at 08:16; Status DC Cefazolin Sodium/ Dextrose 50 ml @ 100 mls/hr 1X PREOP IV ; Start 01/29/19 at 10:15; Stop 01/29/19 at 18:56; Status DC Ondansetron HCl (Zofran) 4 mg STK-MED ONCE .ROUTE ; Start 01/29/19 at 11:34; Stop 01/29/19 at 11:35; Status DC Propofol 20 ml @ As Directed STK-MED ONCE IV ; Start 01/29/19 at 11:34; Stop 01/29/19 at 11:35; Status DC Lidocaine HCl (Lidocaine Pf 2% Vial) 5 ml STK-MED ONCE .ROUTE ; Start 01/29/19 at 11:34; Stop 01/29/19 at 11:35; Status DC Fentanyl Citrate (Fentanyl 2ml Vial) 100 mcg STK-MED ONCE .ROUTE ; Start 01/29/19 at 11:34; Stop 01/29/19 at 11:35; Status DC Dexamethasone Sodium Phosphate (Decadron) 4 mg STK-MED ONCE .ROUTE ; Start 01/29/19 at 11:35; Stop 01/29/19 at 11:36; Status DC Rocuronium [place] (Zemuron) 50 mg STK-MED ONCE .ROUTE ; Start 01/29/19 at 11:35; Stop 01/29/19 at 11:36; Status DC Succinylcholine Chloride (Anectine) 200 mg STK-MED ONCE .ROUTE ; Start 01/29/19 at 11:54; Stop 01/29/19 at 11:55; Status DC Cefazolin Sodium 100 ml @ As Directed STK-MED ONCE IV ; Start 01/29/19 at 12:06; Stop 01/29/19 at 12:07; Status DC Cefazolin Sodium 50 ml @ As Directed STK-MED ONCE IV ; Start 01/29/19 at 12:07; Stop 01/29/19 at 12:08; Status DC Cefazolin Sodium 3 gm/Dextrose 100 ml @ 200 mls/hr 1X ONCE IV Last administered on 01/29/19at 12:09; Start 01/29/19 at 13:00; Stop 01/29/19 at 13:29; Status DC Glycopyrrolate (Robinul) 1 mg STK-MED ONCE .ROUTE ; Start 01/29/19 at 12:57; Stop 01/29/19 at 12:58; Status DC Neostigmine Methylsulfate (Neostigmine Methylsulfate) 5 mg STK-MED ONCE .ROUTE ; Start 01/29/19 at 12:58; Stop 01/29/19 at 12:59; Status DC Rocuronium [place] (Zemuron) 50 mg STK-MED ONCE .ROUTE ; Start 01/29/19 at 13:07; Stop 01/29/19 at 13:08; Status DC Fentanyl Citrate (Fentanyl 2ml Vial) 100 mcg STK-MED ONCE .ROUTE ; Start 01/29/19 at 13:10; Stop 01/29/19 at 13:11; Status DC Iohexol (Omnipaque 300 Mg/ml) 50 ml STK-MED ONCE .ROUTE Last administered on 01/29/19at 12:35; Start 01/29/19 at 12:36; Stop 01/29/19 at 13:37; Status DC Cellulose (Surgicel Hemostat 4x8) 1 each STK-MED ONCE .ROUTE Last administered on 01/29/19at 12:35; Start 01/29/19 at 13:42; Stop 01/29/19 at 14:42; Status DC Cellulose (Surgicel Hemostat 4x8) 1 each STK-MED ONCE .ROUTE Last administered on 01/29/19at 12:35; Start 01/29/19 at 13:46; Stop 01/29/19 at 14:46; Status DC Ketorolac Tromethamine (Toradol For Or Only) 30 mg STK-MED ONCE INJ ; Start 01/29/19 at 14:59; Stop 01/29/19 at 15:00; Status DC Glycopyrrolate (Robinul) 1 mg STK-MED ONCE .ROUTE ; Start 01/29/19 at 15:13; Stop 01/29/19 at 15:14; Status DC Neostigmine Methylsulfate (Neostigmine Methylsulfate) 5 mg STK-MED ONCE .ROUTE ; Start 01/29/19 at 15:13; Stop 01/29/19 at 15:14; Status DC Sevoflurane (Ultane) 90 ml STK-MED ONCE IH ; Start 01/29/19 at 15:20; Stop 01/29/19 at 15:21; Status DC Fentanyl Citrate (Fentanyl 2ml Vial) 100 mcg STK-MED ONCE .ROUTE ; Start 01/29/19 at 15:32; Stop 01/29/19 at 15:33; Status DC Fentanyl Citrate (Fentanyl 2ml Vial) 100 mcg STK-MED ONCE .ROUTE ; Start 01/29/19 at 15:48; Stop 01/29/19 at 15:49; Status DC Sodium Chloride (Normal Saline Flush) 3 ml QSHIFT PRN IV AFTER MEDS AND BLOOD DRAWS; Start 01/29/19 at 16:00 Ringer's Solution 1,000 ml @ 100 mls/hr Q10H IV Last administered on 01/31/19at 16:36; Start 01/29/19 at 15:46; Stop 02/01/19 at 01:42; Status DC Dextrose (Dextrose 50%-Water Syringe) 12.5 gm PRN Q15MIN PRN IV SEE COMMENTS; Start 01/29/19 at 16:00 Acetaminophen/ Hydrocodone Bitart (Lortab 5/325) 1 tab PRN Q4HRS PRN PO MILD PAIN Last administered on 01/29/19at 17:28; Start 01/29/19 at 16:00; Stop 01/29/19 at 18:45; Status DC Docusate Sodium (Colace) 100 mg BID PO Last administered on 02/08/19at 21:37; Start 01/29/19 at 21:00 Ondansetron HCl (Zofran) 4 mg PRN Q6HRS PRN IV NAUESA, 1ST CHOICE Last administered on 02/03/19at 15:27; Start 01/29/19 at 16:00 Famotidine (Pepcid Vial) 20 mg 1X ONCE IVP Last administered on 01/29/19 16:14; Start 01/29/19 at 16:15; Stop 01/29/19 at 16:16; Status DC Pantoprazole Sodium (Protonix) 40 mg DAILYAC PO Last administered on 02/09/19 05:34; Start 01/30/19 at 07:30 Fentanyl Citrate (Fentanyl 2ml Vial) 75 mcg PRN Q2HR PRN IV SEVERE PAIN Last administered on 02/01/19 00:09; Start 01/29/19 at 18:45; Stop 02/01/19 at 00:13; Status DC Acetaminophen/ Hydrocodone Bitart (Lortab 10/325) 1 tab PRN Q6HRS PRN PO MODERATE PAIN Last administered on 01/31/19 18:44; Start 01/29/19 at 18:45; Stop 01/31/19 at 23:58; Status DC Cefazolin Sodium/ Dextrose (Ancef 2gm Premix) 2 gm STK-MED ONCE IV ; Start 01/28/19 at 11:00; Stop 01/30/19 at 07:38; Status DC Oxycodone/ Acetaminophen (Percocet 10/325) 1 tab PRN Q4HRS PRN PO severe pain Last administered on 02/09/19 07:59; Start 01/31/19 at 20:45 Fentanyl Citrate (Fentanyl 2ml Vial) 75 mcg PRN Q4HRS PRN IV SEVERE PAIN Last administered on 02/08/19 06:08; Start 02/01/19 at 00:15 Atorvastatin Calcium (Lipitor) 20 mg QHS PO Last administered on 02/08/19 21:38; Start 02/01/19 at 21:00 Buspirone HCl (Buspar) 30 mg BID PO Last administered on 02/09/19 09:30; Start 02/01/19 at 21:00 Fluoxetine HCl (PROzac) 40 mg QHS PO Last administered on 02/08/19 21:38; Start 02/01/19 at 21:00 Haloperidol (Haldol) 10 mg DAILY PO Last administered on 02/09/19 09:31; Start 02/02/19 at 09:00 Lisinopril (Prinivil) 2.5 mg DAILY PO Last administered on 02/09/19 09:32; Start 02/02/19 at 09:00 Metformin HCl (Glucophage) 500 mg BIDWMEALS PO Last administered on 02/09/19 09:30; Start 02/01/19 at 18:30 Mirtazapine (Remeron) 45 mg QHS PO Last administered on 02/08/19 21:38; Start 02/01/19 at 21:00 Olanzapine (ZyPREXA) 15 mg QHS PO Last administered on 02/08/19 21:38; Start 02/01/19 at 21:00 Pantoprazole Sodium (Protonix) 40 mg DAILYAC PO ; Start 02/02/19 at 07:30; Stop 02/04/19 at 07:22; Status DC Polyethylene Glycol (miraLAX PACKET) 17 gm BID PO Last administered on 02/08/19 21:37; Start 02/02/19 at 21:00 Bisacodyl (Dulcolax Tab) 5 mg PRN DAILY PRN PO CONSTIPATION Last administered on 02/02/19 12:13; Start 02/02/19 at 11:45 Piperacillin Sod/ Tazobactam Sod 3.375 gm/Sodium Chloride 50 ml @ 100 mls/hr Q6HRS IV Last administered on 02/09/19 05:35; Start 02/02/19 at 14:00; Stop 02/09/19 at 08:47; Status DC Enoxaparin Sodium (Lovenox 40mg Syringe) 40 mg Q12HR SQ Last administered on 02/09/19 09:32; Start 02/02/19 at 14:00 Linezolid/Dextrose 300 ml @ 300 mls/hr Q12HR IV Last administered on 02/08/19 21:37; Start 02/03/19 at 11:00; Stop 02/09/19 at 08:47; Status DC Lactobacillus Rhamnosus (Culturelle) 1 cap BID PO Last administered on 02/09/19 09:30; Start 02/04/19 at 21:00 Acetaminophen (Tylenol) 650 mg PRN Q6HRS PRN PO FEVER Last administered on 02/05/19 00:14; Start 02/04/19 at 19:30 Micafungin Sodium 100 mg/Dextrose 100 ml @ 100 mls/hr Q24H IV Last administered on 02/08/19at 22:54; Start 02/04/19 at 22:30; Stop 02/09/19 at 08:47; Status DC Ringer's Solution 1,000 ml @ 100 mls/hr Q10H IV Last administered on 02/08/19at 21:36; Start 02/07/19 at 12:30 Iohexol (Omnipaque 350 Mg/ml) 100 ml STK-MED ONCE IV Last administered on 02/07/19at 14:26; Start 02/07/19 at 14:26; Stop 02/07/19 at 14:43; Status DC Succinylcholine Chloride (Anectine) 200 mg STK-MED ONCE .ROUTE ; Start 02/07/19 at 15:00; Stop 02/08/19 at 08:21; Status DC Amoxicillin/ Clavulanate Potassium (Augmentin 875/ 125mg) 1 tab BID PO Last administered on 02/09/19at 09:30; Start 02/09/19 at 09:00 Iohexol (Omnipaque 300 Mg/ml) 100 ml STK-MED ONCE .ROUTE ; Start 02/07/19 at 12:39; Stop 02/09/19 at 09:16; Status DC Propofol 20 ml @ As Directed STK-MED ONCE IV ; Start 02/07/19 at 13:06; Stop 02/09/19 at 09:16; Status DC Lidocaine HCl (Lidocaine Pf 2% Vial) 5 ml STK-MED ONCE .ROUTE ; Start 02/07/19 at 13:07; Stop 02/09/19 at 09:16; Status DC Active Scripts Active Reported Buspirone Hcl 30 Mg Tablet 1 Tab PO BID Protonix (Pantoprazole Sodium) 20 Mg Tablet.dr 2 Tab PO DAILY Zantac (Ranitidine Hcl) 150 Mg Tablet 1 Tab PO HS Tums (Calcium Carbonate) 200 Mg Tab.chew 200 Mg PO TID Zyprexa (Olanzapine) 15 Mg Tablet 1 Tab PO QHS Remeron (Mirtazapine) 15 Mg Tablet 3 Tab PO QHS Lisinopril 2.5 Mg Tablet 1 Tab PO DAILY Atorvastatin Calcium 20 Mg Tablet 1 Tab PO DAILY Haloperidol 10 Mg Tablet 10 Mg PO DAILY Prozac (Fluoxetine Hcl) 40 Mg Capsule 1 Cap PO HS Metformin Hcl 500 Mg Tablet 500 Mg PO BIDWMEALS Vitals/I & O Vital Sign - Last 24 Hours 02/08/19 02/08/19 02/08/19 02/08/19 11:00 13:27 15:00 17:33 Temp 97.9 98.4 97.9 98.4 Pulse 85 79 Resp 17 16 17 16 B/P (MAP) 112/72 (85) 105/65 (78) Pulse Ox 97 98 O2 Delivery Room Air Room Air Room Air Room Air 02/08/19 02/08/19 02/08/19 02/08/19 19:00 20:00 21:41 23:00 Temp 98.2 98.6 98.2 98.6 Pulse 105 101 Resp 17 16 17 B/P (MAP) 142/95 (111) 146/79 (101) Pulse Ox 98 96 O2 Delivery Room Air Room Air Room Air Room Air 02/09/19 02/09/19 02/09/19 02/09/19 02:47 03:00 07:00 07:59 Temp 97.7 98.6 97.7 98.6 Pulse 96 90 Resp 16 17 16 16 B/P (MAP) 130/70 (90) 132/74 (93) Pulse Ox 97 96 O2 Delivery Room Air Room Air Room Air Room Air 02/09/19 02/09/19 09:32 09:33 Pulse 90 Resp 16 B/P (MAP) 132/74 O2 Delivery Room Air Intake and Output 02/08/19 02/08/19 02/09/19 15:00 23:00 07:00 Intake Total 600 ml 300 ml 1960 ml Output Total 30 ml Balance 600 ml 300 ml 1930 ml ROQUE NAVA III DO February 09, 2019 09:54
--- NOTE | 2019-02-09 10:10 | PDOC ---
SURGICAL PROGRESS NOTE Subjective feeling a little better no emesis Vital Signs Vital Signs Date Time Temp Pulse Resp B/P (MAP) Pulse Ox O2 Delivery O2 Flow Rate FiO2 02/09/19 09:33 16 Room Air 02/09/19 09:32 90 132/74 02/09/19 07:00 98.6 96 98.6 02/08/19 08:00 3.0 I&O Intake and Output 02/09/19 07:00 Intake Total 2860 ml Output Total 30 ml Balance 2830 ml Intake Oral 2860 ml Drainage Total 30 ml # Voids 10 General: Alert, Oriented X3, Cooperative, No acute distress Abdomen: Soft, Other (drain site ttp, small amount of bilious drainage) Labs Laboratory Tests Test 02/08/19 05:40 White Blood Count 12.3 x10^3/uL (4.0-11.0) Red Blood Count 2.41 x10^6/uL (4.30-5.70) Hemoglobin 7.7 g/dL (13.0-17.5) Hematocrit 23.1 % (39.0-53.0) Mean Corpuscular Volume 96 fL (79-100) Mean Corpuscular Hemoglobin 32 pg (25-35) Mean Corpuscular Hemoglobin Concent 33 g/dL (31-37) Red Cell Distribution Width 15.3 % (11.5-14.5) Platelet Count 455 x10^3/uL (140-400) Neutrophils (%) (Auto) 59 % (31-73) Lymphocytes (%) (Auto) 26 % (24-48) Monocytes (%) (Auto) 12 % (0-9) Eosinophils (%) (Auto) 3 % (0-3) Basophils (%) (Auto) 0 % (0-3) Neutrophils # (Auto) 7.2 x10^3uL (1.8-7.7) Lymphocytes # (Auto) 3.1 x10^3/uL (1.0-4.8) Monocytes # (Auto) 1.5 x10^3/uL (0.0-1.1) Eosinophils # (Auto) 0.4 x10^3/uL (0.0-0.7) Basophils # (Auto) 0.0 x10^3/uL (0.0-0.2) Sodium Level 137 mmol/L (136-145) Potassium Level 3.6 mmol/L (3.5-5.1) Chloride Level 100 mmol/L (98-107) Carbon Dioxide Level 28 mmol/L (21-32) Anion Gap 9 (6-14) Blood Urea Nitrogen 6 mg/dL (8-26) Creatinine 1.1 mg/dL (0.7-1.3) Estimated GFR (Cockcroft-Gault) 75.3 BUN/Creatinine Ratio 5 (6-20) Glucose Level 131 mg/dL (70-99) Calcium Level 8.3 mg/dL (8.5-10.1) Total Bilirubin 0.9 mg/dL (0.2-1.0) Direct Bilirubin 0.7 mg/dL (0.0-0.2) Aspartate Amino Transf (AST/SGOT) 64 U/L (15-37) Alanine Aminotransferase (ALT/SGPT) 70 U/L (16-63) Alkaline Phosphatase 148 U/L (46-116) Total Protein 6.6 g/dL (6.4-8.2) Albumin 1.8 g/dL (3.4-5.0) Albumin/Globulin Ratio 0.4 (1.0-1.7) Problem List Problems Medical Problems: (1) Common bile duct dilatation Status: Acute (2) Jaundice Status: Acute (3) Morbid obesity Status: Acute Assessment/Plan improved less drainage from drain [employer] APRN February 09, 2019 10:10
[2019-02-09 11:00] VITALS: BP 117/63
--- NOTE | 2019-02-09 13:21 | PDOC ---
Subjective: Subjective: Tolerating PO, had 2 stools today (guards had to remind him). Pain is about the same. Objective: Vital Signs: Vital Signs Date Time Temp Pulse Resp B/P (MAP) Pulse Ox O2 Delivery O2 Flow Rate FiO2 02/09/19 11:00 98.0 80 16 117/63 (81) 97 Room Air 98.0 02/08/19 08:00 3.0 Labs: Current Medications Medications (Trade) Dose Ordered Sig/Pierce Route PRN Reason Start Time Stop Time Status Last Admin Dose Admin Iohexol (Omnipaque 240 Mg/ml) 30 ml 1X ONCE PO 01/27/19 19:15 01/27/19 19:16 DC 01/27/19 19:15 Iohexol (Omnipaque 300 Mg/ml) 75 ml 1X ONCE IV 01/27/19 19:15 01/27/19 19:16 DC 01/27/19 20:10 Info (CONTRAST GIVEN -- Rx MONITORING) 1 each PRN DAILY PRN MC SEE COMMENTS 01/27/19 19:30 01/29/19 19:29 DC Ketorolac Tromethamine (Toradol 30mg Vial) 30 mg 1X ONCE IV 01/27/19 21:30 01/27/19 21:31 DC 01/27/19 22:02 Sodium Chloride 1,000 ml @ 1,000 mls/hr 1X ONCE IV 01/27/19 21:30 01/27/19 22:29 DC 01/27/19 21:58 Sodium Chloride 1,000 ml @ 150 mls/hr Q6H40M IV 01/27/19 22:00 01/28/19 21:59 DC 01/28/19 12:34 Morphine Sulfate (Morphine Sulfate) 2 mg PRN Q2HR PRN IV PAIN 01/28/19 08:15 01/28/19 08:23 DC Ketorolac Tromethamine (Toradol 30mg Vial) 20 mg PRN Q6HRS PRN IV MILD PAIN 01/28/19 08:15 02/02/19 08:14 DC 02/01/19 16:29 Fentanyl Citrate (Fentanyl 2ml Vial) 50 mcg PRN Q2HR PRN IV MODERATE PAIN, SEVERE PAIN 01/28/19 08:30 01/29/19 18:44 DC 01/29/19 17:28 Cefazolin Sodium/ Dextrose 50 ml @ 100 mls/hr 1X PREOP IV 01/28/19 15:45 01/29/19 10:14 DC Fentanyl Citrate (Fentanyl 2ml Vial) 25 mcg PRN Q5MIN PRN IV MILD PAIN 01/29/19 07:00 01/29/19 19:00 DC Fentanyl Citrate (Fentanyl 2ml Vial) 50 mcg PRN Q5MIN PRN IV MODERATE TO SEVERE PAIN 01/29/19 07:00 01/29/19 19:00 DC 01/29/19 16:32 Ringer's Solution 1,000 ml @ 30 mls/hr Q24H IV 01/29/19 07:00 01/29/19 18:59 DC 01/29/19 09:49 Prochlorperazine Edisylate (Compazine) 5 mg PACU PRN PRN IV NAUSEA, MRX1 01/29/19 07:00 01/29/19 19:00 DC Dextrose (Dextrose 50%-Water Syringe) 12.5 gm PRN Q15MIN PRN IV SEE COMMENTS 01/28/19 19:45 01/30/19 13:49 DC Bupivacaine HCl/ Epinephrine Bitart (Sensorcain-Mpf Epi 0.5%-1:143034) 30 ml STK-MED ONCE .ROUTE 01/29/19 07:14 01/29/19 08:15 DC 01/29/19 12:35 Cellulose (Surgicel Hemostat 2x3) 1 each STK-MED ONCE .ROUTE 01/29/19 07:14 01/29/19 08:15 DC 01/29/19 12:35 Heparin Sodium (Porcine) (Heparin Sodium) 10,000 unit STK-MED ONCE .ROUTE 01/29/19 07:14 01/29/19 08:15 DC 01/29/19 12:35 Iohexol (Omnipaque 300 Mg/ml) 50 ml STK-MED ONCE .ROUTE 01/29/19 07:14 01/29/19 08:16 DC 01/29/19 12:35 Bisacodyl (Dulcolax Supp) 10 mg STK-MED ONCE .ROUTE 01/29/19 07:15 01/29/19 08:16 DC 01/29/19 12:35 Cefazolin Sodium/ Dextrose 50 ml @ 100 mls/hr 1X PREOP IV 01/29/19 10:15 01/29/19 18:56 DC Ondansetron HCl (Zofran) 4 mg STK-MED ONCE .ROUTE 01/29/19 11:34 01/29/19 11:35 DC Propofol 20 ml @ As Directed STK-MED ONCE IV 01/29/19 11:34 01/29/19 11:35 DC Lidocaine HCl (Lidocaine Pf 2% Vial) 5 ml STK-MED ONCE .ROUTE 01/29/19 11:34 01/29/19 11:35 DC Fentanyl Citrate (Fentanyl 2ml Vial) 100 mcg STK-MED ONCE .ROUTE 01/29/19 11:34 01/29/19 11:35 DC Dexamethasone Sodium Phosphate (Decadron) 4 mg STK-MED ONCE .ROUTE 01/29/19 11:35 01/29/19 11:36 DC Rocuronium Martell (Zemuron) 50 mg STK-MED ONCE .ROUTE 01/29/19 11:35 01/29/19 11:36 DC Succinylcholine Chloride (Anectine) 200 mg STK-MED ONCE .ROUTE 01/29/19 11:54 01/29/19 11:55 DC Cefazolin Sodium 100 ml @ As Directed STK-MED ONCE IV 01/29/19 12:06 01/29/19 12:07 DC Cefazolin Sodium 50 ml @ As Directed STK-MED ONCE IV 01/29/19 12:07 01/29/19 12:08 DC Cefazolin Sodium 3 gm/Dextrose 100 ml @ 200 mls/hr 1X ONCE IV 01/29/19 13:00 01/29/19 13:29 DC 01/29/19 12:09 Glycopyrrolate (Robinul) 1 mg STK-MED ONCE .ROUTE 01/29/19 12:57 01/29/19 12:58 DC Neostigmine Methylsulfate (Neostigmine Methylsulfate) 5 mg STK-MED ONCE .ROUTE 01/29/19 12:58 01/29/19 12:59 DC Rocuronium Martell (Zemuron) 50 mg STK-MED ONCE .ROUTE 01/29/19 13:07 01/29/19 13:08 DC Fentanyl Citrate (Fentanyl 2ml Vial) 100 mcg STK-MED ONCE .ROUTE 01/29/19 13:10 01/29/19 13:11 DC Iohexol (Omnipaque 300 Mg/ml) 50 ml STK-MED ONCE .ROUTE 01/29/19 12:36 01/29/19 13:37 DC 01/29/19 12:35 Cellulose (Surgicel Hemostat 4x8) 1 each STK-MED ONCE .ROUTE 01/29/19 13:42 01/29/19 14:42 DC 01/29/19 12:35 Cellulose (Surgicel Hemostat 4x8) 1 each STK-MED ONCE .ROUTE 01/29/19 13:46 01/29/19 14:46 DC 01/29/19 12:35 Ketorolac Tromethamine (Toradol For Or Only) 30 mg STK-MED ONCE INJ 01/29/19 14:59 01/29/19 15:00 DC Glycopyrrolate (Robinul) 1 mg STK-MED ONCE .ROUTE 01/29/19 15:13 01/29/19 15:14 DC Neostigmine Methylsulfate (Neostigmine Methylsulfate) 5 mg STK-MED ONCE .ROUTE 01/29/19 15:13 01/29/19 15:14 DC Sevoflurane (Ultane) 90 ml STK-MED ONCE IH 01/29/19 15:20 01/29/19 15:21 DC Fentanyl Citrate (Fentanyl 2ml Vial) 100 mcg STK-MED ONCE .ROUTE 01/29/19 15:32 01/29/19 15:33 DC Fentanyl Citrate (Fentanyl 2ml Vial) 100 mcg STK-MED ONCE .ROUTE 01/29/19 15:48 01/29/19 15:49 DC Sodium Chloride (Normal Saline Flush) 3 ml QSHIFT PRN IV AFTER MEDS AND BLOOD DRAWS 01/29/19 16:00 Ringer's Solution 1,000 ml @ 100 mls/hr Q10H IV 01/29/19 15:46 02/01/19 01:42 DC 01/31/19 16:36 Dextrose (Dextrose 50%-Water Syringe) 12.5 gm PRN Q15MIN PRN IV SEE COMMENTS 01/29/19 16:00 Acetaminophen/ Hydrocodone Bitart (Lortab 5/325) 1 tab PRN Q4HRS PRN PO MILD PAIN 01/29/19 16:00 01/29/19 18:45 DC 01/29/19 17:28 Docusate Sodium (Colace) 100 mg BID PO 01/29/19 21:00 02/08/19 21:37 Ondansetron HCl (Zofran) 4 mg PRN Q6HRS PRN IV NAUESA, 1ST CHOICE 01/29/19 16:00 02/03/19 15:27 Famotidine (Pepcid Vial) 20 mg 1X ONCE IVP 01/29/19 16:15 01/29/19 16:16 DC 01/29/19 16:14 Pantoprazole Sodium (Protonix) 40 mg DAILYAC PO 01/30/19 07:30 02/09/19 05:34 Fentanyl Citrate (Fentanyl 2ml Vial) 75 mcg PRN Q2HR PRN IV SEVERE PAIN 01/29/19 18:45 02/01/19 00:13 DC 02/01/19 00:09 Acetaminophen/ Hydrocodone Bitart (Lortab 10/325) 1 tab PRN Q6HRS PRN PO MODERATE PAIN 01/29/19 18:45 01/31/19 23:58 DC 01/31/19 18:44 Cefazolin Sodium/ Dextrose (Ancef 2gm Premix) 2 gm STK-MED ONCE IV 01/28/19 11:00 01/30/19 07:38 DC Oxycodone/ Acetaminophen (Percocet 10/325) 1 tab PRN Q4HRS PRN PO severe pain 01/31/19 20:45 02/09/19 07:59 Fentanyl Citrate (Fentanyl 2ml Vial) 75 mcg PRN Q4HRS PRN IV SEVERE PAIN 02/01/19 00:15 02/08/19 06:08 Atorvastatin Calcium (Lipitor) 20 mg QHS PO 02/01/19 21:00 02/08/19 21:38 Buspirone HCl (Buspar) 30 mg BID PO 02/01/19 21:00 02/09/19 09:30 Fluoxetine HCl (PROzac) 40 mg QHS PO 02/01/19 21:00 02/08/19 21:38 Haloperidol (Haldol) 10 mg DAILY PO 02/02/19 09:00 02/09/19 09:31 Lisinopril (Prinivil) 2.5 mg DAILY PO 02/02/19 09:00 02/09/19 09:32 Metformin HCl (Glucophage) 500 mg BIDWMEALS PO 02/01/19 18:30 02/09/19 09:30 Mirtazapine (Remeron) 45 mg QHS PO 02/01/19 21:00 02/08/19 21:38 Olanzapine (ZyPREXA) 15 mg QHS PO 02/01/19 21:00 02/08/19 21:38 Pantoprazole Sodium (Protonix) 40 mg DAILYAC PO 02/02/19 07:30 02/04/19 07:22 DC Polyethylene Glycol (miraLAX PACKET) 17 gm BID PO 02/02/19 21:00 02/08/19 21:37 Bisacodyl (Dulcolax Tab) 5 mg PRN DAILY PRN PO CONSTIPATION 02/02/19 11:45 02/02/19 12:13 Piperacillin Sod/ Tazobactam Sod 3.375 gm/Sodium Chloride 50 ml @ 100 mls/hr Q6HRS IV 02/02/19 14:00 02/09/19 08:47 DC 02/09/19 05:35 Enoxaparin Sodium (Lovenox 40mg Syringe) 40 mg Q12HR SQ 02/02/19 14:00 02/09/19 09:32 Linezolid/Dextrose 300 ml @ 300 mls/hr Q12HR IV 02/03/19 11:00 02/09/19 08:47 DC 02/08/19 21:37 Lactobacillus Rhamnosus (Culturelle) 1 cap BID PO 02/04/19 21:00 02/09/19 09:30 Acetaminophen (Tylenol) 650 mg PRN Q6HRS PRN PO FEVER 02/04/19 19:30 02/05/19 00:14 Micafungin Sodium 100 mg/Dextrose 100 ml @ 100 mls/hr Q24H IV 02/04/19 22:30 02/09/19 08:47 DC 02/08/19 22:54 Ringer's Solution 1,000 ml @ 100 mls/hr Q10H IV 02/07/19 12:30 02/08/19 21:36 Iohexol (Omnipaque 350 Mg/ml) 100 ml STK-MED ONCE IV 02/07/19 14:26 02/07/19 14:43 DC 02/07/19 14:26 Succinylcholine Chloride (Anectine) 200 mg STK-MED ONCE .ROUTE 02/07/19 15:00 02/08/19 08:21 DC Amoxicillin/ Clavulanate Potassium (Augmentin 875/ 125mg) 1 tab BID PO 02/09/19 09:00 02/09/19 09:30 Iohexol (Omnipaque 300 Mg/ml) 100 ml STK-MED ONCE .ROUTE 02/07/19 12:39 02/09/19 09:16 DC Propofol 20 ml @ As Directed STK-MED ONCE IV 02/07/19 13:06 02/09/19 09:16 DC Lidocaine HCl (Lidocaine Pf 2% Vial) 5 ml STK-MED ONCE .ROUTE 02/07/19 13:07 02/09/19 09:16 DC PE: GEN: NAD - was asleep LUNGS: CTAB HEART: RRR ABD: tender RUQ, BS+, soft, drain bilious (not much) NEURO/PSYCH: A & O 3 A/P: S/p cholecystectomy and CBDE 01/29 S/p ERCP w/ sphincterotomy and stone extraction 02/07 -- Labs ordered for tomorrow. DARREL MUELLER February 09, 2019 13:21
[2019-02-09 15:00] VITALS: BP 129/70
[2019-02-09 19:00] VITALS: BP 115/61
[2019-02-09] MEDS: OLANZapine 5 MG TABLET PO SCH (21:03)
[2019-02-09] MEDS: ATORVASTATIN CALCIUM 20 MG TABLET PO SCH (21:04)
[2019-02-09] MEDS: FLUoxetine HCL 20 MG CAPSULE PO SCH (21:04)
[2019-02-09] MEDS: MIRTAZAPINE 15 MG TABLET PO SCH (21:08)
[2019-02-09 23:00] VITALS: BP 116/59
[2019-02-10] MEDS: IV RINGERS,LACTATED 1000ML 1,000 ML IV SCH ×2 (00:30→10:30)
[2019-02-10 02:55] VITALS: BP 101/63
[2019-02-10] MEDS: oxyCODONE/APAP 10/325 1 TAB TABLET PO PRN ×3 (02:58→11:31)
[2019-02-10] MEDS: PANTOPRAZOLE 40 MG TABLET.DR. PO SCH (06:59)
[2019-02-10 07:00] VITALS: BP 127/77
[2019-02-10 08:13] LABS: BASO # 0.1 x10^3/uL (0.0-0.2); BASO % 1 % (0-3); EOS # 0.4 x10^3/uL (0.0-0.7); EOS % 4 % (0-3); HEMATOCRIT 24.8 % (39.0-53.0); HEMOGLOBIN 7.9 g/dL (13.0-17.5); LYMPH # 3.6 x10^3/uL (1.0-4.8); LYMPH % 34 % (24-48); MEAN CORPUSCULAR HEMOGLOBIN 31 pg (25-35); MEAN CORPUSCULAR HGB CONC 32 g/dL (31-37); MEAN CORPUSCULAR VOLUME 97 fL (79-100); MONO # 1.1 x10^3/uL (0.0-1.1); MONO % 11 % (0-9); NEUT # 5.3 x10^3uL (1.8-7.7); NEUT % 50 % (31-73); PLATELET COUNT 459 x10^3/uL (140-400); RED BLOOD COUNT 2.56 x10^6/uL (4.30-5.70); RED CELL DISTRIBUTION WIDTH 15.8 % (11.5-14.5); WHITE BLOOD COUNT 10.6 x10^3/uL (4.0-11.0)
--- NOTE | 2019-02-10 08:13 | PDOC ---
SURGICAL PROGRESS NOTE Subjective Pt with c/o but garth diet, passing stools Vital Signs Vital Signs Date Time Temp Pulse Resp B/P (MAP) Pulse Ox O2 Delivery O2 Flow Rate FiO2 02/10/19 07:00 16 Room Air 02/10/19 02:55 98.3 90 101/63 (76) 94 98.3 I&O Intake and Output 02/10/19 07:00 Intake Total 1920 ml Balance 1920 ml Intake Oral 1920 ml # Voids 7 # Bowel Movements 1 General: Alert, Oriented X3, Cooperative, No acute distress Abdomen: Soft, Other (mild TTP, VIKY) Labs Laboratory Tests Test 02/09/19 03:45 Insulin Level 21.3 uIU/mL (2.6-24.9) Problem List Problems Medical Problems: (1) Common bile duct dilatation Status: Acute (2) Jaundice Status: Acute (3) Morbid obesity Status: Acute Assessment/Plan s/p lap bonita, CBDE diet as tolerated cont drain OK to start d/c planning, possibly 02/13 JANA VITAL MD February 10, 2019 08:13
[2019-02-10 08:34] LABS: ALBUMIN 1.9 g/dL (3.4-5.0); ALBUMIN/GLOBULIN RATIO 0.4 (1.0-1.7); CALCIUM 8.5 mg/dL (8.5-10.1); CREATININE 1.1 mg/dL (0.7-1.3); GFR 75.3; POTASSIUM 3.9 mmol/L (3.5-5.1); TOTAL BILIRUBIN 0.6 mg/dL (0.2-1.0); TOTAL PROTEIN 6.6 g/dL (6.4-8.2)
[2019-02-10] MEDS: busPIRone 10 MG TABLET. PO SCH (08:36)
[2019-02-10] MEDS: HALOPERIDOL 5 MG TABLET. PO SCH (08:36)
[2019-02-10] MEDS: ENOXAPARIN 40 MG/0.4 ML SYRINGE. SQ SCH (08:37)
[2019-02-10 08:38] VITALS: BP 101/63
[2019-02-10] MEDS: LISINOPRIL 5 MG TABLET. PO SCH (08:38)
[2019-02-10] MEDS: AMOXICILLIN/K CLAV 875/125MG TABLET. PO SCH (08:38)
[2019-02-10] MEDS: metFORMIN 500 MG TABLET PO SCH (08:38)
[2019-02-10] MEDS: LACTOBACILLUS RHAMNOSUS GG 1 CAPSULE. PO SCH (08:38)
--- NOTE | 2019-02-10 08:38 | PDOC ---
Infectious Disease Note Subjective: Subjective Pt still has some abdo discomfort no fevers biliary drainage has been decreasing Denies N/V/chills D/W RN ROS: ROS Negative except for above. Vital Signs: Vital Signs Vital Signs Date Time Temp Pulse Resp B/P (MAP) Pulse Ox O2 Delivery O2 Flow Rate FiO2 02/10/19 08:20 16 Room Air 02/10/19 02:55 98.3 90 101/63 (76) 94 98.3 Physical Exam: PHYSICAL EXAM GENERAL: Propped up in bed, alert, NAD HEENT: Oral cavity clear NECK: Supple, no JVP, no lymphadenopathy. LUNGS: Clear. HEART: S1, S2 regular. ABDOMEN: Obese, soft, mildly tender, VIKY w/ sang drainage EXTREMITIES: No edema or cyanosis. SKIN: No rash. Multiple tattoos NEUROLOGIC: Alert, oriented PIV Medications: Inpatient Meds: Current Medications Medications (Trade) Dose Ordered Sig/Pierce Start Time Stop Time Status Last Admin Dose Admin Acetaminophen (Tylenol) 650 mg PRN Q6HRS PRN 02/04/19 19:30 02/05/19 00:14 325 MG Acetaminophen/ Hydrocodone Bitart (Lortab 10/325) 1 tab PRN Q6HRS PRN 01/29/19 18:45 01/31/19 23:58 DC 01/31/19 18:44 1 TAB Acetaminophen/ Hydrocodone Bitart (Lortab 5/325) 1 tab PRN Q4HRS PRN 01/29/19 16:00 01/29/19 18:45 DC 01/29/19 17:28 1 TAB Amoxicillin/ Clavulanate Potassium (Augmentin 875/ 125mg) 1 tab BID 02/09/19 09:00 02/09/19 21:03 1 TAB Atorvastatin Calcium (Lipitor) 20 mg QHS 02/01/19 21:00 02/09/19 21:04 20 MG Bisacodyl (Dulcolax Supp) 10 mg STK-MED ONCE 01/29/19 07:15 01/29/19 08:16 DC 01/29/19 12:35 10 MG Bisacodyl (Dulcolax Tab) 5 mg PRN DAILY PRN 02/02/19 11:45 02/02/19 12:13 5 MG Bupivacaine HCl/ Epinephrine Bitart (Sensorcain-Mpf Epi 0.5%-1:834013) 30 ml STK-MED ONCE 01/29/19 07:14 01/29/19 08:15 DC 01/29/19 12:35 16 ML Buspirone HCl (Buspar) 30 mg BID 02/01/19 21:00 02/09/19 21:03 30 MG Cefazolin Sodium 3 gm/Dextrose 100 ml @ 200 mls/hr 1X ONCE 01/29/19 13:00 01/29/19 13:29 DC 01/29/19 12:09 200 MLS/HR Cefazolin Sodium/ Dextrose (Ancef 2gm Premix) 2 gm STK-MED ONCE 01/28/19 11:00 01/30/19 07:38 DC Cellulose (Surgicel Hemostat 2x3) 1 each STK-MED ONCE 01/29/19 07:14 01/29/19 08:15 DC 01/29/19 12:35 1 EACH Cellulose (Surgicel Hemostat 4x8) 1 each STK-MED ONCE 01/29/19 13:46 01/29/19 14:46 DC 01/29/19 12:35 1 EACH Dexamethasone Sodium Phosphate (Decadron) 4 mg STK-MED ONCE 01/29/19 11:35 01/29/19 11:36 DC Dextrose (Dextrose 50%-Water Syringe) 12.5 gm PRN Q15MIN PRN 01/29/19 16:00 Docusate Sodium (Colace) 100 mg BID 01/29/19 21:00 02/08/19 21:37 100 MG Enoxaparin Sodium (Lovenox 40mg Syringe) 40 mg Q12HR 02/02/19 14:00 02/09/19 21:05 40 MG Famotidine (Pepcid Vial) 20 mg 1X ONCE 01/29/19 16:15 01/29/19 16:16 DC 01/29/19 16:14 20 MG Fentanyl Citrate (Fentanyl 2ml Vial) 75 mcg PRN Q4HRS PRN 02/01/19 00:15 02/08/19 06:08 75 MCG Fluoxetine HCl (PROzac) 40 mg QHS 02/01/19 21:00 02/09/19 21:04 40 MG Glycopyrrolate (Robinul) 1 mg STK-MED ONCE 01/29/19 15:13 01/29/19 15:14 DC Haloperidol (Haldol) 10 mg DAILY 02/02/19 09:00 02/09/19 09:31 10 MG Heparin Sodium (Porcine) (Heparin Sodium) 10,000 unit STK-MED ONCE 01/29/19 07:14 01/29/19 08:15 DC 01/29/19 12:35 1,000 UNIT Info (CONTRAST GIVEN -- Rx MONITORING) 1 each PRN DAILY PRN 01/27/19 19:30 01/29/19 19:29 DC Iohexol (Omnipaque 240 Mg/ml) 30 ml 1X ONCE 01/27/19 19:15 01/27/19 19:16 DC 01/27/19 19:15 30 ML Iohexol (Omnipaque 300 Mg/ml) 100 ml STK-MED ONCE 02/07/19 12:39 02/09/19 09:16 DC Iohexol (Omnipaque 350 Mg/ml) 100 ml STK-MED ONCE 02/07/19 14:26 02/07/19 14:43 DC 02/07/19 14:26 40 ML Ketorolac Tromethamine (Toradol 30mg Vial) 20 mg PRN Q6HRS PRN 01/28/19 08:15 02/02/19 08:14 DC 02/01/19 16:29 20 MG Ketorolac Tromethamine (Toradol For Or Only) 30 mg STK-MED ONCE 01/29/19 14:59 01/29/19 15:00 DC Lactobacillus Rhamnosus (Culturelle) 1 cap BID 02/04/19 21:00 02/09/19 21:04 1 CAP Lidocaine HCl (Lidocaine Pf 2% Vial) 5 ml STK-MED ONCE 02/07/19 13:07 02/09/19 09:16 DC Linezolid/Dextrose 300 ml @ 300 mls/hr Q12HR 02/03/19 11:00 02/09/19 08:47 DC 02/08/19 21:37 300 MLS/HR Lisinopril (Prinivil) 2.5 mg DAILY 02/02/19 09:00 02/09/19 09:32 2.5 MG Metformin HCl (Glucophage) 500 mg BIDWMEALS 02/01/19 18:30 02/09/19 16:53 500 MG Micafungin Sodium 100 mg/Dextrose 100 ml @ 100 mls/hr Q24H 02/04/19 22:30 02/09/19 08:47 DC 02/08/19 22:54 100 MLS/HR Mirtazapine (Remeron) 45 mg QHS 02/01/19 21:00 02/09/19 21:08 45 MG Morphine Sulfate (Morphine Sulfate) 2 mg PRN Q2HR PRN 01/28/19 08:15 01/28/19 08:23 DC Neostigmine Methylsulfate (Neostigmine Methylsulfate) 5 mg STK-MED ONCE 01/29/19 15:13 01/29/19 15:14 DC Olanzapine (ZyPREXA) 15 mg QHS 02/01/19 21:00 02/09/19 21:03 15 MG Ondansetron HCl (Zofran) 4 mg PRN Q6HRS PRN 01/29/19 16:00 02/03/19 15:27 4 MG Oxycodone/ Acetaminophen (Percocet 10/325) 1 tab PRN Q4HRS PRN 01/31/19 20:45 02/10/19 07:00 1 TAB Pantoprazole Sodium (Protonix) 40 mg DAILYAC 02/02/19 07:30 02/04/19 07:22 DC Piperacillin Sod/ Tazobactam Sod 3.375 gm/Sodium Chloride 50 ml @ 100 mls/hr Q6HRS 02/02/19 14:00 02/09/19 08:47 DC 02/09/19 05:35 100 MLS/HR Polyethylene Glycol (miraLAX PACKET) 17 gm BID 02/02/19 21:00 02/09/19 21:04 17 GM Prochlorperazine Edisylate (Compazine) 5 mg PACU PRN PRN 01/29/19 07:00 01/29/19 19:00 DC Propofol 20 ml @ As Directed STK-MED ONCE 02/07/19 13:06 02/09/19 09:16 DC Ringer's Solution 1,000 ml @ 100 mls/hr Q10H 02/07/19 12:30 02/08/19 21:36 100 MLS/HR Rocuronium Page (Zemuron) 50 mg STK-MED ONCE 01/29/19 13:07 01/29/19 13:08 DC Sevoflurane (Ultane) 90 ml STK-MED ONCE 01/29/19 15:20 01/29/19 15:21 DC Sodium Chloride (Normal Saline Flush) 3 ml QSHIFT PRN 01/29/19 16:00 Succinylcholine Chloride (Anectine) 200 mg STK-MED ONCE 02/07/19 15:00 02/08/19 08:21 DC Labs: Lab Laboratory Tests Test 02/10/19 07:55 White Blood Count 10.6 x10^3/uL (4.0-11.0) Red Blood Count 2.56 x10^6/uL (4.30-5.70) Hemoglobin 7.9 g/dL (13.0-17.5) Hematocrit 24.8 % (39.0-53.0) Mean Corpuscular Volume 97 fL (79-100) Mean Corpuscular Hemoglobin 31 pg (25-35) Mean Corpuscular Hemoglobin Concent 32 g/dL (31-37) Red Cell Distribution Width 15.8 % (11.5-14.5) Platelet Count 459 x10^3/uL (140-400) Neutrophils (%) (Auto) 50 % (31-73) Lymphocytes (%) (Auto) 34 % (24-48) Monocytes (%) (Auto) 11 % (0-9) Eosinophils (%) (Auto) 4 % (0-3) Basophils (%) (Auto) 1 % (0-3) Neutrophils # (Auto) 5.3 x10^3uL (1.8-7.7) Lymphocytes # (Auto) 3.6 x10^3/uL (1.0-4.8) Monocytes # (Auto) 1.1 x10^3/uL (0.0-1.1) Eosinophils # (Auto) 0.4 x10^3/uL (0.0-0.7) Basophils # (Auto) 0.1 x10^3/uL (0.0-0.2) Sodium Level 143 mmol/L (136-145) Potassium Level 3.9 mmol/L (3.5-5.1) Chloride Level 106 mmol/L (98-107) Carbon Dioxide Level 30 mmol/L (21-32) Anion Gap 7 (6-14) Blood Urea Nitrogen 6 mg/dL (8-26) Creatinine 1.1 mg/dL (0.7-1.3) Estimated GFR (Cockcroft-Gault) 75.3 BUN/Creatinine Ratio 5 (6-20) Glucose Level 106 mg/dL (70-99) Calcium Level 8.5 mg/dL (8.5-10.1) Total Bilirubin 0.6 mg/dL (0.2-1.0) Aspartate Amino Transf (AST/SGOT) 39 U/L (15-37) Alanine Aminotransferase (ALT/SGPT) 56 U/L (16-63) Alkaline Phosphatase 139 U/L (46-116) Total Protein 6.6 g/dL (6.4-8.2) Albumin 1.9 g/dL (3.4-5.0) Albumin/Globulin Ratio 0.4 (1.0-1.7) Micro BC neg Objective: Assessment: Fever resolved Leukocytosis, improving Biliary leak S/P cholecystectomy and CBDE 01/29 S/p ERCP w/ sphincterotomy and stone extraction 02/07 Obesity. Hyperbilirubinemia. Plan: Plan of Care cont Zosyn, off micafungin and zyvox Monitor temp and VIKY drainage f/u c/s and labs in am D/W RICCO COHEN MD February 10, 2019 08:38
[2019-02-10] MEDS: DOCUSATE SODIUM 100 MG CAPSULE. PO SCH (08:46)
[2019-02-10] MEDS: POLYETHYLENE GLYCOL 3350 17 GM PACKET. PO SCH (08:46)
--- NOTE | 2019-02-10 09:51 | PDOC ---
PROGRESS NOTES Chief Complaint Chief Complaint Jaundice with transaminitis and hyperbilirubinemia Common bile duct dilatation Cholelithiasis. S/P cholecystectomy and CBDE 01/29 S/p ERCP w/ sphincterotomy and stone extraction 02/07 Leukocytosis Obesity History of Present Illness History of Present Illness Patient seen and examined VIKY tube examined Patient feeling well in NAD Waiting for resolution of infection d/c today with po augmentin ok with surgery and ID PER RN Vitals Vitals Vital Signs Date Time Temp Pulse Resp B/P (MAP) Pulse Ox O2 Delivery O2 Flow Rate FiO2 02/10/19 08:38 90 101/63 02/10/19 08:20 16 Room Air 02/10/19 02:55 98.3 94 98.3 Physical Exam Physical Exam GENERAL: Propped up in bed, alert, NAD HEENT: Oral cavity clear NECK: Supple, no JVP, no lymphadenopathy. LUNGS: Clear. HEART: S1, S2 regular. ABDOMEN: Obese, soft, mildly tender, VIKY w/ sang drainage EXTREMITIES: No edema or cyanosis. SKIN: No rash. Multiple tattoos NEUROLOGIC: Alert, oriented PIV General: Alert, Oriented X3, Cooperative, No acute distress Heart: Regular rate, Normal S1, Normal S2, No murmurs Lungs: Clear Abdomen: Soft, Other (mild TTP, VIKY) Extremities: No clubbing, No cyanosis Skin: Other (jaundice) Labs LABS Laboratory Tests Test 02/10/19 07:55 White Blood Count 10.6 x10^3/uL (4.0-11.0) Red Blood Count 2.56 x10^6/uL (4.30-5.70) Hemoglobin 7.9 g/dL (13.0-17.5) Hematocrit 24.8 % (39.0-53.0) Mean Corpuscular Volume 97 fL (79-100) Mean Corpuscular Hemoglobin 31 pg (25-35) Mean Corpuscular Hemoglobin Concent 32 g/dL (31-37) Red Cell Distribution Width 15.8 % (11.5-14.5) Platelet Count 459 x10^3/uL (140-400) Neutrophils (%) (Auto) 50 % (31-73) Lymphocytes (%) (Auto) 34 % (24-48) Monocytes (%) (Auto) 11 % (0-9) Eosinophils (%) (Auto) 4 % (0-3) Basophils (%) (Auto) 1 % (0-3) Neutrophils # (Auto) 5.3 x10^3uL (1.8-7.7) Lymphocytes # (Auto) 3.6 x10^3/uL (1.0-4.8) Monocytes # (Auto) 1.1 x10^3/uL (0.0-1.1) Eosinophils # (Auto) 0.4 x10^3/uL (0.0-0.7) Basophils # (Auto) 0.1 x10^3/uL (0.0-0.2) Sodium Level 143 mmol/L (136-145) Potassium Level 3.9 mmol/L (3.5-5.1) Chloride Level 106 mmol/L (98-107) Carbon Dioxide Level 30 mmol/L (21-32) Anion Gap 7 (6-14) Blood Urea Nitrogen 6 mg/dL (8-26) Creatinine 1.1 mg/dL (0.7-1.3) Estimated GFR (Cockcroft-Gault) 75.3 BUN/Creatinine Ratio 5 (6-20) Glucose Level 106 mg/dL (70-99) Calcium Level 8.5 mg/dL (8.5-10.1) Total Bilirubin 0.6 mg/dL (0.2-1.0) Aspartate Amino Transf (AST/SGOT) 39 U/L (15-37) Alanine Aminotransferase (ALT/SGPT) 56 U/L (16-63) Alkaline Phosphatase 139 U/L (46-116) Total Protein 6.6 g/dL (6.4-8.2) Albumin 1.9 g/dL (3.4-5.0) Albumin/Globulin Ratio 0.4 (1.0-1.7) Assessment and Plan Assessmemt and Plan Problems Medical Problems: (1) Common bile duct dilatation Status: Acute (2) Jaundice Status: Acute (3) Morbid obesity Status: Acute Comment Review of Relevant I have reviewed the following items gustavo (where applicable) has been applied. Labs Laboratory Tests Test 02/09/19 03:45 02/10/19 07:55 Insulin Level 21.3 uIU/mL (2.6-24.9) White Blood Count 10.6 x10^3/uL (4.0-11.0) Red Blood Count 2.56 x10^6/uL (4.30-5.70) Hemoglobin 7.9 g/dL (13.0-17.5) Hematocrit 24.8 % (39.0-53.0) Mean Corpuscular Volume 97 fL (79-100) Mean Corpuscular Hemoglobin 31 pg (25-35) Mean Corpuscular Hemoglobin Concent 32 g/dL (31-37) Red Cell Distribution Width 15.8 % (11.5-14.5) Platelet Count 459 x10^3/uL (140-400) Neutrophils (%) (Auto) 50 % (31-73) Lymphocytes (%) (Auto) 34 % (24-48) Monocytes (%) (Auto) 11 % (0-9) Eosinophils (%) (Auto) 4 % (0-3) Basophils (%) (Auto) 1 % (0-3) Neutrophils # (Auto) 5.3 x10^3uL (1.8-7.7) Lymphocytes # (Auto) 3.6 x10^3/uL (1.0-4.8) Monocytes # (Auto) 1.1 x10^3/uL (0.0-1.1) Eosinophils # (Auto) 0.4 x10^3/uL (0.0-0.7) Basophils # (Auto) 0.1 x10^3/uL (0.0-0.2) Sodium Level 143 mmol/L (136-145) Potassium Level 3.9 mmol/L (3.5-5.1) Chloride Level 106 mmol/L (98-107) Carbon Dioxide Level 30 mmol/L (21-32) Anion Gap 7 (6-14) Blood Urea Nitrogen 6 mg/dL (8-26) Creatinine 1.1 mg/dL (0.7-1.3) Estimated GFR (Cockcroft-Gault) 75.3 BUN/Creatinine Ratio 5 (6-20) Glucose Level 106 mg/dL (70-99) Calcium Level 8.5 mg/dL (8.5-10.1) Total Bilirubin 0.6 mg/dL (0.2-1.0) Aspartate Amino Transf (AST/SGOT) 39 U/L (15-37) Alanine Aminotransferase (ALT/SGPT) 56 U/L (16-63) Alkaline Phosphatase 139 U/L (46-116) Total Protein 6.6 g/dL (6.4-8.2) Albumin 1.9 g/dL (3.4-5.0) Albumin/Globulin Ratio 0.4 (1.0-1.7) Laboratory Tests Test 02/10/19 07:55 White Blood Count 10.6 x10^3/uL (4.0-11.0) Red Blood Count 2.56 x10^6/uL (4.30-5.70) Hemoglobin 7.9 g/dL (13.0-17.5) Hematocrit 24.8 % (39.0-53.0) Mean Corpuscular Volume 97 fL (79-100) Mean Corpuscular Hemoglobin 31 pg (25-35) Mean Corpuscular Hemoglobin Concent 32 g/dL (31-37) Red Cell Distribution Width 15.8 % (11.5-14.5) Platelet Count 459 x10^3/uL (140-400) Neutrophils (%) (Auto) 50 % (31-73) Lymphocytes (%) (Auto) 34 % (24-48) Monocytes (%) (Auto) 11 % (0-9) Eosinophils (%) (Auto) 4 % (0-3) Basophils (%) (Auto) 1 % (0-3) Neutrophils # (Auto) 5.3 x10^3uL (1.8-7.7) Lymphocytes # (Auto) 3.6 x10^3/uL (1.0-4.8) Monocytes # (Auto) 1.1 x10^3/uL (0.0-1.1) Eosinophils # (Auto) 0.4 x10^3/uL (0.0-0.7) Basophils # (Auto) 0.1 x10^3/uL (0.0-0.2) Sodium Level 143 mmol/L (136-145) Potassium Level 3.9 mmol/L (3.5-5.1) Chloride Level 106 mmol/L (98-107) Carbon Dioxide Level 30 mmol/L (21-32) Anion Gap 7 (6-14) Blood Urea Nitrogen 6 mg/dL (8-26) Creatinine 1.1 mg/dL (0.7-1.3) Estimated GFR (Cockcroft-Gault) 75.3 BUN/Creatinine Ratio 5 (6-20) Glucose Level 106 mg/dL (70-99) Calcium Level 8.5 mg/dL (8.5-10.1) Total Bilirubin 0.6 mg/dL (0.2-1.0) Aspartate Amino Transf (AST/SGOT) 39 U/L (15-37) Alanine Aminotransferase (ALT/SGPT) 56 U/L (16-63) Alkaline Phosphatase 139 U/L (46-116) Total Protein 6.6 g/dL (6.4-8.2) Albumin 1.9 g/dL (3.4-5.0) Albumin/Globulin Ratio 0.4 (1.0-1.7) Microbiology 02/05/19 Blood Culture - Final, Complete NO GROWTH AFTER 5 DAYS Medications Current Medications Iohexol (Omnipaque 240 Mg/ml) 30 ml 1X ONCE PO Last administered on 01/27/19at 19:15; Start 01/27/19 at 19:15; Stop 01/27/19 at 19:16; Status DC Iohexol (Omnipaque 300 Mg/ml) 75 ml 1X ONCE IV Last administered on 01/27/19at 20:10; Start 01/27/19 at 19:15; Stop 01/27/19 at 19:16; Status DC Info (CONTRAST GIVEN -- Rx MONITORING) 1 each PRN DAILY PRN MC SEE COMMENTS; Start 01/27/19 at 19:30; Stop 01/29/19 at 19:29; Status DC Ketorolac Tromethamine (Toradol 30mg Vial) 30 mg 1X ONCE IV Last administered on 01/27/19at 22:02; Start 01/27/19 at 21:30; Stop 01/27/19 at 21:31; Status DC Sodium Chloride 1,000 ml @ 1,000 mls/hr 1X ONCE IV Last administered on 01/27at 21:58; Start 01/27/19 at 21:30; Stop 01/27/19 at 22:29; Status DC Sodium Chloride 1,000 ml @ 150 mls/hr Q6H40M IV Last administered on 01/28/19at 12:34; Start 01/27/19 at 22:00; Stop 01/28/19 at 21:59; Status DC Morphine Sulfate (Morphine Sulfate) 2 mg PRN Q2HR PRN IV PAIN; Start 01/28/19 at 08:15; Stop 01/28/19 at 08:23; Status DC Ketorolac Tromethamine (Toradol 30mg Vial) 20 mg PRN Q6HRS PRN IV MILD PAIN Last administered on 02/01/19at 16:29; Start 01/28/19 at 08:15; Stop 02/02/19 at 08:14; Status DC Fentanyl Citrate (Fentanyl 2ml Vial) 50 mcg PRN Q2HR PRN IV MODERATE PAIN, SEVERE PAIN Last administered on 01/29/19at 17:28; Start 01/28/19 at 08:30; Stop 01/29/19 at 18:44; Status DC Cefazolin Sodium/ Dextrose 50 ml @ 100 mls/hr 1X PREOP IV ; Start 01/28/19 at 15:45; Stop 01/29/19 at 10:14; Status DC Fentanyl Citrate (Fentanyl 2ml Vial) 25 mcg PRN Q5MIN PRN IV MILD PAIN; Start 01/29/19 at 07:00; Stop 01/29/19 at 19:00; Status DC Fentanyl Citrate (Fentanyl 2ml Vial) 50 mcg PRN Q5MIN PRN IV MODERATE TO SEVERE PAIN Last administered on 01/29/19at 16:32; Start 01/29/19 at 07:00; Stop 01/29/19 at 19:00; Status DC Ringer's Solution 1,000 ml @ 30 mls/hr Q24H IV Last administered on 01/29/19at 09:49; Start 01/29/19 at 07:00; Stop 01/29/19 at 18:59; Status DC Prochlorperazine Edisylate (Compazine) 5 mg PACU PRN PRN IV NAUSEA, MRX1; Start 01/29/19 at 07:00; Stop 01/29/19 at 19:00; Status DC Dextrose (Dextrose 50%-Water Syringe) 12.5 gm PRN Q15MIN PRN IV SEE COMMENTS; Start 01/28/19 at 19:45; Stop 01/30/19 at 13:49; Status DC Bupivacaine HCl/ Epinephrine Bitart (Sensorcain-Mpf Epi 0.5%-[id number]) 30 ml STK-MED ONCE .ROUTE Last administered on 01/29/19at 12:35; Start 01/29/19 at 07:14; Stop 01/29/19 at 08:15; Status DC Cellulose (Surgicel Hemostat 2x3) 1 each STK-MED ONCE .ROUTE Last administered on 01/29/19at 12:35; Start 01/29/19 at 07:14; Stop 01/29/19 at 08:15; Status DC Heparin Sodium (Porcine) (Heparin Sodium) 10,000 unit STK-MED ONCE .ROUTE Last administered on 01/29/19at 12:35; Start 01/29/19 at 07:14; Stop 01/29/19 at 08:15; Status DC Iohexol (Omnipaque 300 Mg/ml) 50 ml STK-MED ONCE .ROUTE Last administered on 01/29/19at 12:35; Start 01/29/19 at 07:14; Stop 01/29/19 at 08:16; Status DC Bisacodyl (Dulcolax Supp) 10 mg STK-MED ONCE .ROUTE Last administered on 01/29/19 12:35; Start 01/29/19 at 07:15; Stop 01/29/19 at 08:16; Status DC Cefazolin Sodium/ Dextrose 50 ml @ 100 mls/hr 1X PREOP IV ; Start 01/29/19 at 10:15; Stop 01/29/19 at 18:56; Status DC Ondansetron HCl (Zofran) 4 mg STK-MED ONCE .ROUTE ; Start 01/29/19 at 11:34; Stop 01/29/19 at 11:35; Status DC Propofol 20 ml @ As Directed STK-MED ONCE IV ; Start 01/29/19 at 11:34; Stop 01/29/19 at 11:35; Status DC Lidocaine HCl (Lidocaine Pf 2% Vial) 5 ml STK-MED ONCE .ROUTE ; Start 01/29/19 at 11:34; Stop 01/29/19 at 11:35; Status DC Fentanyl Citrate (Fentanyl 2ml Vial) 100 mcg STK-MED ONCE .ROUTE ; Start 9 at 11:34; Stop 01/29/19 at 11:35; Status DC Dexamethasone Sodium Phosphate (Decadron) 4 mg STK-MED ONCE .ROUTE ; Start 01/29/19 at 11:35; Stop 01/29/19 at 11:36; Status DC Rocuronium [place] (Zemuron) 50 mg STK-MED ONCE .ROUTE ; Start 01/29/19 at 11:35 ; Stop 01/29/19 at 11:36; Status DC Succinylcholine Chloride (Anectine) 200 mg STK-MED ONCE .ROUTE ; Start 01/29/19 at 11:54; Stop 01/29/19 at 11:55; Status DC Cefazolin Sodium 100 ml @ As Directed STK-MED ONCE IV ; Start 01/29/19 at 12:06; Stop 01/29/19 at 12:07; Status DC Cefazolin Sodium 50 ml @ As Directed STK-MED ONCE IV ; Start 01/29/19 at 12:07; Stop 01/29/19 at 12:08; Status DC Cefazolin Sodium 3 gm/Dextrose 100 ml @ 200 mls/hr 1X ONCE IV Last administered on 01/29/19at 12:09; Start 01/29/19 at 13:00; Stop 01/29/19 at 13:29; Status DC Glycopyrrolate (Robinul) 1 mg STK-MED ONCE .ROUTE ; Start 01/29/19 at 12:57; Stop 01/29/19 at 12:58; Status DC Neostigmine Methylsulfate (Neostigmine Methylsulfate) 5 mg STK-MED ONCE .ROUTE ; Start 01/29/19 at 12:58; Stop 01/29/19 at 12:59; Status DC Rocuronium [place] (Zemuron) 50 mg STK-MED ONCE .ROUTE ; Start 01/29/19 at 13:07; Stop 01/29/19 at 13:08; Status DC Fentanyl Citrate (Fentanyl 2ml Vial) 100 mcg STK-MED ONCE .ROUTE ; Start 01/29/19 at 13:10; Stop 01/29/19 at 13:11; Status DC Iohexol (Omnipaque 300 Mg/ml) 50 ml STK-MED ONCE .ROUTE Last administered on 01/29/19at 12:35; Start 01/29/19 at 12:36; Stop 01/29/19 at 13:37; Status DC Cellulose (Surgicel Hemostat 4x8) 1 each STK-MED ONCE .ROUTE Last administered on 01/29/19at 12:35; Start 01/29/19 at 13:42; Stop 01/29/19 at 14:42; Status DC Cellulose (Surgicel Hemostat 4x8) 1 each STK-MED ONCE .ROUTE Last administered on 01/29/19at 12:35; Start 01/29/19 at 13:46; Stop 01/29/19 at 14:46; Status DC Ketorolac Tromethamine (Toradol For Or Only) 30 mg STK-MED ONCE INJ ; Start 01/29/19 at 14:59; Stop 01/29/19 at 15:00; Status DC Glycopyrrolate (Robinul) 1 mg STK-MED ONCE .ROUTE ; Start 01/29/19 at 15:13; Stop 01/29/19 at 15:14; Status DC Neostigmine Methylsulfate (Neostigmine Methylsulfate) 5 mg STK-MED ONCE .ROUTE ; Start 01/29/19 at 15:13; Stop 01/29/19 at 15:14; Status DC Sevoflurane (Ultane) 90 ml STK-MED ONCE IH ; Start 01/29/19 at 15:20; Stop 01/29/19 at 15:21; Status DC Fentanyl Citrate (Fentanyl 2ml Vial) 100 mcg STK-MED ONCE .ROUTE ; Start 01/29/19 at 15:32; Stop 01/29/19 at 15:33; Status DC Fentanyl Citrate (Fentanyl 2ml Vial) 100 mcg STK-MED ONCE .ROUTE ; Start 01/29/19 at 15:48; Stop 01/29/19 at 15:49; Status DC Sodium Chloride (Normal Saline Flush) 3 ml QSHIFT PRN IV AFTER MEDS AND BLOOD DRAWS; Start 01/29/19 at 16:00 Ringer's Solution 1,000 ml @ 100 mls/hr Q10H IV Last administered on 01/31/19at 16:36; Start 01/29/19 at 15:46; Stop 02/01/19 at 01:42; Status DC Dextrose (Dextrose 50%-Water Syringe) 12.5 gm PRN Q15MIN PRN IV SEE COMMENTS; Start 01/29/19 at 16:00 Acetaminophen/ Hydrocodone Bitart (Lortab 5/325) 1 tab PRN Q4HRS PRN PO MILD PAIN Last administered on 01/29/19at 17:28; Start 01/29/19 at 16:00; Stop 01/29/19 at 18:45; Status DC Docusate Sodium (Colace) 100 mg BID PO Last administered on 02/08/19 21:37; Start 01/29/19 at 21:00 Ondansetron HCl (Zofran) 4 mg PRN Q6HRS PRN IV NAUESA, 1ST CHOICE Last administered on 02/03/19 15:27; Start 01/29/19 at 16:00 Famotidine (Pepcid Vial) 20 mg 1X ONCE IVP Last administered on 01/29/19 16:14; Start 01/29/19 at 16:15; Stop 01/29/19 at 16:16; Status DC Pantoprazole Sodium (Protonix) 40 mg DAILYAC PO Last administered on 02/10/19 06:59; Start 01/30/19 at 07:30 Fentanyl Citrate (Fentanyl 2ml Vial) 75 mcg PRN Q2HR PRN IV SEVERE PAIN Last administered on 02/01/19at 00:09; Start 01/29/19 at 18:45; Stop 02/01/19 at 00:13; Status DC Acetaminophen/ Hydrocodone Bitart (Lortab 10/325) 1 tab PRN Q6HRS PRN PO MODERATE PAIN Last administered on 01/31/19 18:44; Start 01/29/19 at 18:45; Stop 01/31/19 at 23:58; Status DC Cefazolin Sodium/ Dextrose (Ancef 2gm Premix) 2 gm STK-MED ONCE IV ; Start 01/28/19 at 11:00; Stop 01/30/19 at 07:38; Status DC Oxycodone/ Acetaminophen (Percocet 10/325) 1 tab PRN Q4HRS PRN PO severe pain Last administered on 02/10/19 07:00; Start 01/31/19 at 20:45 Fentanyl Citrate (Fentanyl 2ml Vial) 75 mcg PRN Q4HRS PRN IV SEVERE PAIN Last administered on 02/08/19 06:08; Start 02/01/19 at 00:15 Atorvastatin Calcium (Lipitor) 20 mg QHS PO Last administered on 02/09/19 21:04; Start 02/01/19 at 21:00 Buspirone HCl (Buspar) 30 mg BID PO Last administered on 02/10/19 08:36; Start 02/01/19 at 21:00 Fluoxetine HCl (PROzac) 40 mg QHS PO Last administered on 02/09/19 21:04; Start 02/01/19 at 21:00 Haloperidol (Haldol) 10 mg DAILY PO Last administered on 02/10/19 08:36; Start 02/02/19 at 09:00 Lisinopril (Prinivil) 2.5 mg DAILY PO Last administered on 02/10/19 08:38; Start 02/02/19 at 09:00 Metformin HCl (Glucophage) 500 mg BIDWMEALS PO Last administered on 02/10/19 08:38; Start 02/01/19 at 18:30 Mirtazapine (Remeron) 45 mg QHS PO Last administered on 02/09/19 21:08; Start 02/01/19 at 21:00 Olanzapine (ZyPREXA) 15 mg QHS PO Last administered on 02/09/19 21:03; Start 02/01/19 at 21:00 Pantoprazole Sodium (Protonix) 40 mg DAILYAC PO ; Start 02/02/19 at 07:30; Stop 02/04/19 at 07:22; Status DC Polyethylene Glycol (miraLAX PACKET) 17 gm BID PO Last administered on 02/09/19 21:04; Start 02/02/19 at 21:00 Bisacodyl (Dulcolax Tab) 5 mg PRN DAILY PRN PO CONSTIPATION Last administered on 02/02/19 12:13; Start 02/02/19 at 11:45 Piperacillin Sod/ Tazobactam Sod 3.375 gm/Sodium Chloride 50 ml @ 100 mls/hr Q6HRS IV Last administered on 02/09/19 05:35; Start 02/02/19 at 14:00; Stop 02/09/19 at 08:47; Status DC Enoxaparin Sodium (Lovenox 40mg Syringe) 40 mg Q12HR SQ Last administered on 02/10/19 08:37; Start 02/02/19 at 14:00 Linezolid/Dextrose 300 ml @ 300 mls/hr Q12HR IV Last administered on 02/08/19 21:37; Start 02/03/19 at 11:00; Stop 02/09/19 at 08:47; Status DC Lactobacillus Rhamnosus (Culturelle) 1 cap BID PO Last administered on 02/10/19at 08:38; Start 02/04/19 at 21:00 Acetaminophen (Tylenol) 650 mg PRN Q6HRS PRN PO FEVER Last administered on 02/05/19at 00:14; Start 02/04/19 at 19:30 Micafungin Sodium 100 mg/Dextrose 100 ml @ 100 mls/hr Q24H IV Last administered on 02/08/19at 22:54; Start 02/04/19 at 22:30; Stop 02/09/19 at 08:47; Status DC Ringer's Solution 1,000 ml @ 100 mls/hr Q10H IV Last administered on 02/08/19at 21:36; Start 02/07/19 at 12:30 Iohexol (Omnipaque 350 Mg/ml) 100 ml STK-MED ONCE IV Last administered on 02/07/19at 14:26; Start 02/07/19 at 14:26; Stop 02/07/19 at 14:43; Status DC Succinylcholine Chloride (Anectine) 200 mg STK-MED ONCE .ROUTE ; Start 02/07/19 at 15:00; Stop 02/08/19 at 08:21; Status DC Amoxicillin/ Clavulanate Potassium (Augmentin 875/ 125mg) 1 tab BID PO Last administered on 02/10/19at 08:38; Start 02/09/19 at 09:00 Iohexol (Omnipaque 300 Mg/ml) 100 ml STK-MED ONCE .ROUTE ; Start 02/07/19 at 12:39; Stop 02/09/19 at 09:16; Status DC Propofol 20 ml @ As Directed STK-MED ONCE IV ; Start 02/07/19 at 13:06; Stop 02/09/19 at 09:16; Status DC Lidocaine HCl (Lidocaine Pf 2% Vial) 5 ml STK-MED ONCE .ROUTE ; Start 02/07/19 at 13:07; Stop 02/09/19 at 09:16; Status DC Piperacillin Sod/ Tazobactam Sod 3.375 gm/Sodium Chloride 50 ml @ 100 mls/hr Q6HRS IV ; Start 02/10/19 at 10:00 Active Scripts Active Reported Buspirone Hcl 30 Mg Tablet 1 Tab PO BID Protonix (Pantoprazole Sodium) 20 Mg Tablet.dr 2 Tab PO DAILY Zantac (Ranitidine Hcl) 150 Mg Tablet 1 Tab PO HS Tums (Calcium Carbonate) 200 Mg Tab.chew 200 Mg PO TID Zyprexa (Olanzapine) 15 Mg Tablet 1 Tab PO QHS Remeron (Mirtazapine) 15 Mg Tablet 3 Tab PO QHS Lisinopril 2.5 Mg Tablet 1 Tab PO DAILY Atorvastatin Calcium 20 Mg Tablet 1 Tab PO DAILY Haloperidol 10 Mg Tablet 10 Mg PO DAILY Prozac (Fluoxetine Hcl) 40 Mg Capsule 1 Cap PO HS Metformin Hcl 500 Mg Tablet 500 Mg PO BIDWMEALS Vitals/I & O Vital Sign - Last 24 Hours 02/09/19 02/09/19 02/09/19 02/09/19 11:00 13:38 15:00 18:34 Temp 98.0 98.9 98.0 98.9 Pulse 80 86 Resp 16 16 16 16 B/P (MAP) 117/63 (81) 129/70 (89) Pulse Ox 97 100 O2 Delivery Room Air Room Air Room Air Room Air 02/09/19 02/09/19 02/09/19 02/09/19 19:00 20:00 22:40 23:00 Temp 98.9 98.8 98.9 98.8 Pulse 91 84 Resp 18 16 18 B/P (MAP) 115/61 (79) 116/59 (78) Pulse Ox 95 96 O2 Delivery Room Air Room Air Room Air Room Air 02/10/19 02/10/19 02/10/19 02/10/19 02:55 02:58 07:00 08:20 Temp 98.3 98.3 Pulse 90 Resp 18 16 16 16 B/P (MAP) 101/63 (76) Pulse Ox 94 O2 Delivery Room Air Room Air Room Air Room Air 02/10/19 08:38 Pulse 90 B/P (MAP) 101/63 Intake and Output 02/09/19 02/09/19 02/10/19 15:00 23:00 07:00 Intake Total 1020 ml 900 ml Balance 1020 ml 900 ml BERNARDINO COX MD February 10, 2019 09:51
[2019-02-10] MEDS ORDERED: PIPERACILLIN/TAZOBACTAM 3.375 GM in IV NORMAL SALINE 50ML 50 ML IV SCH (10:00)
--- NOTE | 2019-02-10 11:48 | PDOC3 ---
Discharge Summary Date of Admission: Jan 28, 2019 Date of Discharge: February 10, 2019 Follow-Up: 3-5 days Admitting Diagnosis comment: DISCHARGE DX ACUTE CHOLECYSTITIS Jaundice with transaminitis and hyperbilirubinemia Common bile duct dilatation Cholelithiasis. S/P cholecystectomy and CBDE 01/29 S/p ERCP w/ sphincterotomy and stone extraction 02/07 Leukocytosis Obesity History of Present Illness History of Present Illness Patient seen and examined VIKY tube examined Patient feeling well in NAD d/c today with po augmentin ok with surgery and ID PER RN SEE SURGERY ONE WEEK Vitals Vitals Vital Signs Date Time Temp Pulse Resp B/P (MAP) Pulse Ox O2 Delivery O2 Flow Rate FiO2 02/10/19 08:38 90 101/63 02/10/19 08:20 16 Room Air 02/10/19 02:55 98.3 94 98.3 Physical Exam Physical Exam GENERAL: Propped up in bed, alert, NAD HEENT: Oral cavity clear NECK: Supple, no JVP, no lymphadenopathy. LUNGS: Clear. HEART: S1, S2 regular. ABDOMEN: Obese, soft, mildly tender, VIKY w/ sang drainage EXTREMITIES: No edema or cyanosis. SKIN: No rash. Multiple tattoos NEUROLOGIC: Alert, oriented PIV General: Alert, Oriented X3, Cooperative, No acute distress Heart: Regular rate, Normal S1, Normal S2, No murmurs Lungs: Clear Abdomen: Soft, Other (mild TTP, VIKY) Extremities: No clubbing, No cyanosis Skin: Other (jaundice) FINAL DIAGNOSIS Problems Medical Problems: (1) Common bile duct dilatation Status: Acute (2) Jaundice Status: Acute (3) Morbid obesity Status: Acute Brief Hospital Course Mr. Loza is a 38 old [sex] who presented with [ ACUTE CHOLECYSTITIS] CONDITION AT DISCHARGE: Improved Discharge Medications Current Medications Iohexol (Omnipaque 240 Mg/ml) 30 ml 1X ONCE PO Last administered on 01/27/19at 19:15; Start 01/27/19 at 19:15; Stop 01/27/19 at 19:16; Status DC Iohexol (Omnipaque 300 Mg/ml) 75 ml 1X ONCE IV Last administered on 01/27/19at 20:10; Start 01/27/19 at 19:15; Stop 01/27/19 at 19:16; Status DC Info (CONTRAST GIVEN -- Rx MONITORING) 1 each PRN DAILY PRN MC SEE COMMENTS; Start 01/27/19 at 19:30; Stop 01/29/19 at 19:29; Status DC Ketorolac Tromethamine (Toradol 30mg Vial) 30 mg 1X ONCE IV Last administered on 01/27/19at 22:02; Start 01/27/19 at 21:30; Stop 01/27/19 at 21:31; Status DC Sodium Chloride 1,000 ml @ 1,000 mls/hr 1X ONCE IV Last administered on 01/27/19at 21:58; Start 01/27/19 at 21:30; Stop 01/27/19 at 22:29; Status DC Sodium Chloride 1,000 ml @ 150 mls/hr Q6H40M IV Last administered on 01/28/19at 12:34; Start 01/27/19 at 22:00; Stop 01/28/19 at 21:59; Status DC Morphine Sulfate (Morphine Sulfate) 2 mg PRN Q2HR PRN IV PAIN; Start 01/28/19 at 08:15; Stop 01/28/19 at 08:23; Status DC Ketorolac Tromethamine (Toradol 30mg Vial) 20 mg PRN Q6HRS PRN IV MILD PAIN Last administered on 02/01/19at 16:29; Start 01/28/19 at 08:15; Stop 02/02/19 at 08:14; Status DC Fentanyl Citrate (Fentanyl 2ml Vial) 50 mcg PRN Q2HR PRN IV MODERATE PAIN, SEVERE PAIN Last administered on 01/29/19at 17:28; Start 01/28/19 at 08:30; Stop 01/29/19 at 18:44; Status DC Cefazolin Sodium/ Dextrose 50 ml @ 100 mls/hr 1X PREOP IV ; Start 01/28/19 at 15:45; Stop 01/29/19 at 10:14; Status DC Fentanyl Citrate (Fentanyl 2ml Vial) 25 mcg PRN Q5MIN PRN IV MILD PAIN; Start 01/29/19 at 07:00; Stop 01/29/19 at 19:00; Status DC Fentanyl Citrate (Fentanyl 2ml Vial) 50 mcg PRN Q5MIN PRN IV MODERATE TO SEVERE PAIN Last administered on 01/29/19at 16:32; Start 01/29/19 at 07:00; Stop 01/29/19 at 19:00; Status DC Ringer's Solution 1,000 ml @ 30 mls/hr Q24H IV Last administered on 01/29/19 09:49; Start 01/29/19 at 07:00; Stop 01/29/19 at 18:59; Status DC Prochlorperazine Edisylate (Compazine) 5 mg PACU PRN PRN IV NAUSEA, MRX1; Start 01/29/19 at 07:00; Stop 01/29/19 at 19:00; Status DC Dextrose (Dextrose 50%-Water Syringe) 12.5 gm PRN Q15MIN PRN IV SEE COMMENTS; Start 01/28/19 at 19:45; Stop 01/30/19 at 13:49; Status DC Bupivacaine HCl/ Epinephrine Bitart (Sensorcain-Mpf Epi 0.5%-1:[id number]) 30 ml STK-MED ONCE .ROUTE Last administered on 01/29/19 12:35; Start 01/29/19 at 07:14; Stop 01/29/19 at 08:15; Status DC Cellulose (Surgicel Hemostat 2x3) 1 each STK-MED ONCE .ROUTE Last administered on 01/29/19 12:35; Start 01/29/19 at 07:14; Stop 01/29/19 at 08:15; Status DC Heparin Sodium (Porcine) (Heparin Sodium) 10,000 unit STK-MED ONCE .ROUTE Last administered on 01/29/19 12:35; Start 01/29/19 at 07:14; Stop 01/29/19 at 08:15; Status DC Iohexol (Omnipaque 300 Mg/ml) 50 ml STK-MED ONCE .ROUTE Last administered on 01/29/19 12:35; Start 01/29/19 at 07:14; Stop 01/29/19 at 08:16; Status DC Bisacodyl (Dulcolax Supp) 10 mg STK-MED ONCE .ROUTE Last administered on 01/29/19 12:35; Start 01/29/19 at 07:15; Stop 01/29/19 at 08:16; Status DC Cefazolin Sodium/ Dextrose 50 ml @ 100 mls/hr 1X PREOP IV ; Start 01/29/19 at 10:15; Stop 01/29/19 at 18:56; Status DC Ondansetron HCl (Zofran) 4 mg STK-MED ONCE .ROUTE ; Start 01/29/19 at 11:34; Stop 01/29/19 at 11:35; Status DC Propofol 20 ml @ As Directed STK-MED ONCE IV ; Start 01/29/19 at 11:34; Stop 01/29/19 at 11:35; Status DC Lidocaine HCl (Lidocaine Pf 2% Vial) 5 ml STK-MED ONCE .ROUTE ; Start 01/29/19 at 11:34; Stop 01/29/19 at 11:35; Status DC Fentanyl Citrate (Fentanyl 2ml Vial) 100 mcg STK-MED ONCE .ROUTE ; Start 01/29/19 at 11:34; Stop 01/29/19 at 11:35; Status DC Dexamethasone Sodium Phosphate (Decadron) 4 mg STK-MED ONCE .ROUTE ; Start 01/29/19 at 11:35; Stop 01/29/19 at 11:36; Status DC Rocuronium [place]inton (Zemuron) 50 mg STK-MED ONCE .ROUTE ; Start 01/29/19 at 11:35; Stop 01/29/19 at 11:36; Status DC Succinylcholine Chloride (Anectine) 200 mg STK-MED ONCE .ROUTE ; Start 01/29/19 at 11:54; Stop 01/29/19 at 11:55; Status DC Cefazolin Sodium 100 ml @ As Directed STK-MED ONCE IV ; Start 01/29/19 at 12:06; Stop 01/29/19 at 12:07; Status DC Cefazolin Sodium 50 ml @ As Directed STK-MED ONCE IV ; Start 01/29/19 at 12:07; Stop 01/29/19 at 12:08; Status DC Cefazolin Sodium 3 gm/Dextrose 100 ml @ 200 mls/hr 1X ONCE IV Last administered on 01/29/19at 12:09; Start 01/29/19 at 13:00; Stop 01/29/19 at 13:29; Status DC Glycopyrrolate (Robinul) 1 mg STK-MED ONCE .ROUTE ; Start 01/29/19 at 12:57; Stop 01/29/19 at 12:58; Status DC Neostigmine Methylsulfate (Neostigmine Methylsulfate) 5 mg STK-MED ONCE .ROUTE ; Start 01/29/19 at 12:58; Stop 01/29/19 at 12:59; Status DC Rocuronium [place]inton (Zemuron) 50 mg STK-MED ONCE .ROUTE ; Start 01/29/19 at 13:07; Stop 01/29/19 at 13:08; Status DC Fentanyl Citrate (Fentanyl 2ml Vial) 100 mcg STK-MED ONCE .ROUTE ; Start 01/29/19 at 13:10; Stop 01/29/19 at 13:11; Status DC Iohexol (Omnipaque 300 Mg/ml) 50 ml STK-MED ONCE .ROUTE Last administered on 01/29/19at 12:35; Start 01/29/19 at 12:36; Stop 01/29/19 at 13:37; Status DC Cellulose (Surgicel Hemostat 4x8) 1 each STK-MED ONCE .ROUTE Last administered on 01/29/19at 12:35; Start 01/29/19 at 13:42; Stop 01/29/19 at 14:42; Status DC Cellulose (Surgicel Hemostat 4x8) 1 each STK-MED ONCE .ROUTE Last administered on 01/29/19at 12:35; Start 01/29/19 at 13:46; Stop 01/29/19 at 14:46; Status DC Ketorolac Tromethamine (Toradol For Or Only) 30 mg STK-MED ONCE INJ ; Start 01/29/19 at 14:59; Stop 01/29/19 at 15:00; Status DC Glycopyrrolate (Robinul) 1 mg STK-MED ONCE .ROUTE ; Start 01/29/19 at 15:13; Stop 01/29/19 at 15:14; Status DC Neostigmine Methylsulfate (Neostigmine Methylsulfate) 5 mg STK-MED ONCE .ROUTE ; Start 01/29/19 at 15:13; Stop 01/29/19 at 15:14; Status DC Sevoflurane (Ultane) 90 ml STK-MED ONCE IH ; Start 01/29/19 at 15:20; Stop 01/29/19 at 15:21; Status DC Fentanyl Citrate (Fentanyl 2ml Vial) 100 mcg STK-MED ONCE .ROUTE ; Start 01/29/19 at 15:32; Stop 01/29/19 at 15:33; Status DC Fentanyl Citrate (Fentanyl 2ml Vial) 100 mcg STK-MED ONCE .ROUTE ; Start 01/29/19 at 15:48; Stop 01/29/19 at 15:49; Status DC Sodium Chloride (Normal Saline Flush) 3 ml QSHIFT PRN IV AFTER MEDS AND BLOOD DRAWS; Start 01/29/19 at 16:00 Ringer's Solution 1,000 ml @ 100 mls/hr Q10H IV Last administered on 01/31/19at 16:36; Start 01/29/19 at 15:46; Stop 02/01/19 at 01:42; Status DC Dextrose (Dextrose 50%-Water Syringe) 12.5 gm PRN Q15MIN PRN IV SEE COMMENTS; Start 01/29/19 at 16:00 Acetaminophen/ Hydrocodone Bitart (Lortab 5/325) 1 tab PRN Q4HRS PRN PO MILD PAIN Last administered on 01/29/19at 17:28; Start 01/29/19 at 16:00; Stop 01/29/19 at 18:45; Status DC Docusate Sodium (Colace) 100 mg BID PO Last administered on 02/08/19at 21:37; Start 01/29/19 at 21:00 Ondansetron HCl (Zofran) 4 mg PRN Q6HRS PRN IV NAUESA, 1ST CHOICE Last administered on 02/03/19at 15:27; Start 01/29/19 at 16:00 Famotidine (Pepcid Vial) 20 mg 1X ONCE IVP Last administered on 01/29/19at 16:14; Start 01/29/19 at 16:15; Stop 01/29/19 at 16:16; Status DC Pantoprazole Sodium (Protonix) 40 mg DAILYAC PO Last administered on 02/10/19at 06:59; Start 01/30/19 at 07:30 Fentanyl Citrate (Fentanyl 2ml Vial) 75 mcg PRN Q2HR PRN IV SEVERE PAIN Last administered on 02/01/19at 00:09; Start 01/29/19 at 18:45; Stop 02/01/19 at 00:13; Status DC Acetaminophen/ Hydrocodone Bitart (Lortab 10/325) 1 tab PRN Q6HRS PRN PO MODERATE PAIN Last administered on 01/31/19 18:44; Start 01/29/19 at 18:45; Stop 01/31/19 at 23:58; Status DC Cefazolin Sodium/ Dextrose (Ancef 2gm Premix) 2 gm STK-MED ONCE IV ; Start 01/28/19 at 11:00; Stop 01/30/19 at 07:38; Status DC Oxycodone/ Acetaminophen (Percocet 10/325) 1 tab PRN Q4HRS PRN PO severe pain Last administered on 02/10/19 11:31; Start 01/31/19 at 20:45 Fentanyl Citrate (Fentanyl 2ml Vial) 75 mcg PRN Q4HRS PRN IV SEVERE PAIN Last administered on 02/08/19 06:08; Start 02/01/19 at 00:15 Atorvastatin Calcium (Lipitor) 20 mg QHS PO Last administered on 02/09/19 21:04; Start 02/01/19 at 21:00 Buspirone HCl (Buspar) 30 mg BID PO Last administered on 02/10/19 08:36; Start 02/01/19 at 21:00 Fluoxetine HCl (PROzac) 40 mg QHS PO Last administered on 02/09/19 21:04; Start 02/01/19 at 21:00 Haloperidol (Haldol) 10 mg DAILY PO Last administered on 02/10/19 08:36; Start 02/02/19 at 09:00 Lisinopril (Prinivil) 2.5 mg DAILY PO Last administered on 02/10/19 08:38; Start 02/02/19 at 09:00 Metformin HCl (Glucophage) 500 mg BIDWMEALS PO Last administered on 02/10/19 08:38; Start 02/01/19 at 18:30 Mirtazapine (Remeron) 45 mg QHS PO Last administered on 02/09/19 21:08; Start 02/01/19 at 21:00 Olanzapine (ZyPREXA) 15 mg QHS PO Last administered on 02/09/19 21:03; Start 02/01/19 at 21:00 Pantoprazole Sodium (Protonix) 40 mg DAILYAC PO ; Start 02/02/19 at 07:30; Stop 02/04/19 at 07:22; Status DC Polyethylene Glycol (miraLAX PACKET) 17 gm BID PO Last administered on 02/09/19 21:04; Start 02/02/19 at 21:00 Bisacodyl (Dulcolax Tab) 5 mg PRN DAILY PRN PO CONSTIPATION Last administered on 02/02/19 12:13; Start 02/02/19 at 11:45 Piperacillin Sod/ Tazobactam Sod 3.375 gm/Sodium Chloride 50 ml @ 100 mls/hr Q6HRS IV Last administered on 02/09/19 05:35; Start 02/02/19 at 14:00; Stop 02/09/19 at 08:47; Status DC Enoxaparin Sodium (Lovenox 40mg Syringe) 40 mg Q12HR SQ Last administered on 02/10/19 08:37; Start 02/02/19 at 14:00 Linezolid/Dextrose 300 ml @ 300 mls/hr Q12HR IV Last administered on 02/08/19 21:37; Start 02/03/19 at 11:00; Stop 02/09/19 at 08:47; Status DC Lactobacillus Rhamnosus (Culturelle) 1 cap BID PO Last administered on 02/10/19 08:38; Start 02/04/19 at 21:00 Acetaminophen (Tylenol) 650 mg PRN Q6HRS PRN PO FEVER Last administered on 02/05/19 00:14; Start 02/04/19 at 19:30 Micafungin Sodium 100 mg/Dextrose 100 ml @ 100 mls/hr Q24H IV Last administered on 02/08/19 22:54; Start 02/04/19 at 22:30; Stop 02/09/19 at 08:47; Status DC Ringer's Solution 1,000 ml @ 100 mls/hr Q10H IV Last administered on 02/08/19 21:36; Start 02/07/19 at 12:30 Iohexol (Omnipaque 350 Mg/ml) 100 ml STK-MED ONCE IV Last administered on 02/07/19 14:26; Start 02/07/19 at 14:26; Stop 02/07/19 at 14:43; Status DC Succinylcholine Chloride (Anectine) 200 mg STK-MED ONCE .ROUTE ; Start 02/07/19 at 15:00; Stop 02/08/19 at 08:21; Status DC Amoxicillin/ Clavulanate Potassium (Augmentin 875/ 125mg) 1 tab BID PO Last administered on 02/10/19at 08:38; Start 02/09/19 at 09:00 Iohexol (Omnipaque 300 Mg/ml) 100 ml STK-MED ONCE .ROUTE ; Start 02/07/19 at 12:39; Stop 02/09/19 at 09:16; Status DC Propofol 20 ml @ As Directed STK-MED ONCE IV ; Start 02/07/19 at 13:06; Stop 02/09/19 at 09:16; Status DC Lidocaine HCl (Lidocaine Pf 2% Vial) 5 ml STK-MED ONCE .ROUTE ; Start 02/07/19 at 13:07; Stop 02/09/19 at 09:16; Status DC Piperacillin Sod/ Tazobactam Sod 3.375 gm/Sodium Chloride 50 ml @ 100 mls/hr Q6HRS IV ; Start 02/10/19 at 10:00 Active Scripts Active Reported Buspirone Hcl 30 Mg Tablet 1 Tab PO BID Protonix (Pantoprazole Sodium) 20 Mg Tablet.dr 2 Tab PO DAILY Zantac (Ranitidine Hcl) 150 Mg Tablet 1 Tab PO HS Tums (Calcium Carbonate) 200 Mg Tab.chew 200 Mg PO TID Zyprexa (Olanzapine) 15 Mg Tablet 1 Tab PO QHS Remeron (Mirtazapine) 15 Mg Tablet 3 Tab PO QHS Lisinopril 2.5 Mg Tablet 1 Tab PO DAILY Atorvastatin Calcium 20 Mg Tablet 1 Tab PO DAILY Haloperidol 10 Mg Tablet 10 Mg PO DAILY Prozac (Fluoxetine Hcl) 40 Mg Capsule 1 Cap PO HS Metformin Hcl 500 Mg Tablet 500 Mg PO BIDWMEALS Vital Signs Vital Signs Date Time Temp Pulse Resp B/P (MAP) Pulse Ox O2 Delivery O2 Flow Rate FiO2 02/10/19 11:31 16 Room Air 02/10/19 08:38 90 101/63 02/10/19 08:00 3.0 02/10/19 07:00 98.5 98 98.5 Labs Laboratory Tests Test 02/09/19 03:45 02/10/19 07:55 Insulin Level 21.3 uIU/mL (2.6-24.9) White Blood Count 10.6 x10^3/uL (4.0-11.0) Red Blood Count 2.56 x10^6/uL (4.30-5.70) Hemoglobin 7.9 g/dL (13.0-17.5) Hematocrit 24.8 % (39.0-53.0) Mean Corpuscular Volume 97 fL (79-100) Mean Corpuscular Hemoglobin 31 pg (25-35) Mean Corpuscular Hemoglobin Concent 32 g/dL (31-37) Red Cell Distribution Width 15.8 % (11.5-14.5) Platelet Count 459 x10^3/uL (140-400) Neutrophils (%) (Auto) 50 % (31-73) Lymphocytes (%) (Auto) 34 % (24-48) Monocytes (%) (Auto) 11 % (0-9) Eosinophils (%) (Auto) 4 % (0-3) Basophils (%) (Auto) 1 % (0-3) Neutrophils # (Auto) 5.3 x10^3uL (1.8-7.7) Lymphocytes # (Auto) 3.6 x10^3/uL (1.0-4.8) Monocytes # (Auto) 1.1 x10^3/uL (0.0-1.1) Eosinophils # (Auto) 0.4 x10^3/uL (0.0-0.7) Basophils # (Auto) 0.1 x10^3/uL (0.0-0.2) Sodium Level 143 mmol/L (136-145) Potassium Level 3.9 mmol/L (3.5-5.1) Chloride Level 106 mmol/L (98-107) Carbon Dioxide Level 30 mmol/L (21-32) Anion Gap 7 (6-14) Blood Urea Nitrogen 6 mg/dL (8-26) Creatinine 1.1 mg/dL (0.7-1.3) Estimated GFR (Cockcroft-Gault) 75.3 BUN/Creatinine Ratio 5 (6-20) Glucose Level 106 mg/dL (70-99) Calcium Level 8.5 mg/dL (8.5-10.1) Total Bilirubin 0.6 mg/dL (0.2-1.0) Aspartate Amino Transf (AST/SGOT) 39 U/L (15-37) Alanine Aminotransferase (ALT/SGPT) 56 U/L (16-63) Alkaline Phosphatase 139 U/L (46-116) Total Protein 6.6 g/dL (6.4-8.2) Albumin 1.9 g/dL (3.4-5.0) Albumin/Globulin Ratio 0.4 (1.0-1.7) Laboratory Tests Test 02/10/19 07:55 White Blood Count 10.6 x10^3/uL (4.0-11.0) Red Blood Count 2.56 x10^6/uL (4.30-5.70) Hemoglobin 7.9 g/dL (13.0-17.5) Hematocrit 24.8 % (39.0-53.0) Mean Corpuscular Volume 97 fL (79-100) Mean Corpuscular Hemoglobin 31 pg (25-35) Mean Corpuscular Hemoglobin Concent 32 g/dL (31-37) Red Cell Distribution Width 15.8 % (11.5-14.5) Platelet Count 459 x10^3/uL (140-400) Neutrophils (%) (Auto) 50 % (31-73) Lymphocytes (%) (Auto) 34 % (24-48) Monocytes (%) (Auto) 11 % (0-9) Eosinophils (%) (Auto) 4 % (0-3) Basophils (%) (Auto) 1 % (0-3) Neutrophils # (Auto) 5.3 x10^3uL (1.8-7.7) Lymphocytes # (Auto) 3.6 x10^3/uL (1.0-4.8) Monocytes # (Auto) 1.1 x10^3/uL (0.0-1.1) Eosinophils # (Auto) 0.4 x10^3/uL (0.0-0.7) Basophils # (Auto) 0.1 x10^3/uL (0.0-0.2) Sodium Level 143 mmol/L (136-145) Potassium Level 3.9 mmol/L (3.5-5.1) Chloride Level 106 mmol/L (98-107) Carbon Dioxide Level 30 mmol/L (21-32) Anion Gap 7 (6-14) Blood Urea Nitrogen 6 mg/dL (8-26) Creatinine 1.1 mg/dL (0.7-1.3) Estimated GFR (Cockcroft-Gault) 75.3 BUN/Creatinine Ratio 5 (6-20) Glucose Level 106 mg/dL (70-99) Calcium Level 8.5 mg/dL (8.5-10.1) Total Bilirubin 0.6 mg/dL (0.2-1.0) Aspartate Amino Transf (AST/SGOT) 39 U/L (15-37) Alanine Aminotransferase (ALT/SGPT) 56 U/L (16-63) Alkaline Phosphatase 139 U/L (46-116) Total Protein 6.6 g/dL (6.4-8.2) Albumin 1.9 g/dL (3.4-5.0) Albumin/Globulin Ratio 0.4 (1.0-1.7) Allergies Allergies Coded Allergies Type Severity Reaction Last Updated Verified codeine Allergy Intermediate Hives 02/07/19 Yes I S O L A T I O N *CONTACT* Allergy Unknown 01/30/19 Yes lithium Adverse Reaction Severe SEIZURE 02/07/19 Yes Disposition/Orders: Other (BACK TO LONG-TERM CUSTODY D/C PLANNING 34 MIN) BERNARDINO COX MD February 10, 2019 11:48
[2019-02-10] MEDS ORDERED: LACT1CAP19 PO (11:51)
[2019-02-10] MEDS ORDERED: AMOX1TAB11 PO (11:51)
[2019-02-10] MEDS ORDERED: DOCU-109 PO (11:51)
--- NOTE | 2019-02-10 11:52 | DISCH ---
DISCHARGE INSTRUCTIONS Condition on Discharge Condition on Discharge: Stable Activity After Discharge Activity Instructions for Disc: Activity as tolerated Lifting Instructions after Dis: No heavy lifting, No pulling or pushing Weight Bearing Status after Di: As tolerated Diet after Discharge Diet after Discharge: GI Soft Contacting the DR. after DC Call your doctor for: If your condition worsens BERNARDINO COX MD February 10, 2019 11:52
--- NOTE | 2019-02-10 11:53 | PDOC ---
Subjective: Subjective: Feels better, says discharging today. Eating and stooling without issue. Objective: Vital Signs: Vital Signs Date Time Temp Pulse Resp B/P (MAP) Pulse Ox O2 Delivery O2 Flow Rate FiO2 02/10/19 11:31 16 Room Air 02/10/19 08:38 90 101/63 02/10/19 08:00 3.0 02/10/19 07:00 98.5 98 98.5 Labs: Laboratory Tests Test 02/10/19 07:55 White Blood Count 10.6 x10^3/uL Red Blood Count 2.56 x10^6/uL Hemoglobin 7.9 g/dL Hematocrit 24.8 % Mean Corpuscular Volume 97 fL Mean Corpuscular Hemoglobin 31 pg Mean Corpuscular Hemoglobin Concent 32 g/dL Red Cell Distribution Width 15.8 % Platelet Count 459 x10^3/uL Neutrophils (%) (Auto) 50 % Lymphocytes (%) (Auto) 34 % Monocytes (%) (Auto) 11 % Eosinophils (%) (Auto) 4 % Basophils (%) (Auto) 1 % Neutrophils # (Auto) 5.3 x10^3uL Lymphocytes # (Auto) 3.6 x10^3/uL Monocytes # (Auto) 1.1 x10^3/uL Eosinophils # (Auto) 0.4 x10^3/uL Basophils # (Auto) 0.1 x10^3/uL Sodium Level 143 mmol/L Potassium Level 3.9 mmol/L Chloride Level 106 mmol/L Carbon Dioxide Level 30 mmol/L Anion Gap 7 Blood Urea Nitrogen 6 mg/dL Creatinine 1.1 mg/dL Estimated GFR (Cockcroft-Gault) 75.3 BUN/Creatinine Ratio 5 Glucose Level 106 mg/dL Calcium Level 8.5 mg/dL Total Bilirubin 0.6 mg/dL Aspartate Amino Transf (AST/SGOT) 39 U/L Alanine Aminotransferase (ALT/SGPT) 56 U/L Alkaline Phosphatase 139 U/L Total Protein 6.6 g/dL Albumin 1.9 g/dL Albumin/Globulin Ratio 0.4 BLOOD CULTURE Final NO GROWTH AFTER 5 DAYS PE: GEN: NAD LUNGS: CTAB HEART: RRR ABD: minimal bilious output in drain, less tender NEURO/PSYCH: A & O 3 A/P: S/p cholecystectomy, CBDE, ERCP w/ sphincterotomy and stone extraction - LFTs improving -- DC per primary/surgery. DARREL MUELLER February 10, 2019 11:53
--- NOTE | 2019-02-10 13:07 | NUR ---
Report called to Milad BISWAS at [facility], Envelope with DC instructions given to guards. Patient was escorted out via wheelchair by this RN accompanied with 2 assisted guards.
== END 2019-02-10 13:09 | disposition home or self-care (01) | DRG 412 ==
LOC: ER 17:54 → EEVIPCON 17:54 → 4 NORTH 21:04
PROVIDERS: ADMIT Internal Medicine; ATTEND Internal Medicine
PROC: BF101ZZ Fluoroscopy of Bile Ducts using Low Osmolar Contrast (ICD-10-PCS; 2019-01-29)
PROC: 0FJB4ZZ Inspection of Hepatobiliary Duct, Percutaneous Endoscopic Approach (ICD-10-PCS; 2019-01-29)
PROC: 0FT44ZZ Resection of Gallbladder, Percutaneous Endoscopic Approach (ICD-10-PCS; principal; 2019-01-29 10:00)
PROC: 0F798ZZ Dilation of Common Bile Duct, Via Natural or Artificial Opening Endoscopic (ICD-10-PCS; 2019-02-07)
DX: K80.67 Calculus of gallbladder and bile duct with acute and chronic cholecystitis with obstruction (principal); Z68.41 Body mass index [BMI] 40.0-44.9, adult; K76.0 Fatty (change of) liver, not elsewhere classified; D18.03 Hemangioma of intra-abdominal structures; E66.01 Morbid (severe) obesity due to excess calories; R07.89 Other chest pain; R74.0 Nonspecific elevation of levels of transaminase and lactic acid dehydrogenase [LDH]; K83.8 Other specified diseases of biliary tract; D64.9 Anemia, unspecified; E11.9 Type 2 diabetes mellitus without complications; F20.9 Schizophrenia, unspecified; K21.9 Gastro-esophageal reflux disease without esophagitis; Z83.3 Family history of diabetes mellitus; Z88.8 Allergy status to other drugs, medicaments and biological substances; Z79.899 Other long term (current) drug therapy
CPT/HCPCS: 36415; 43262; 43264; 43275; 71045; 74176; 74177; 74181; 74300; 74328; 76700; 78226; 80048; 80053; 80076; 80307; 81001; 82140; 82150; 82248; 82962; 83525; 83605; 83690; 84145; 85025; 85610; 85730; 86301; 86705; 86709; 86803; 87040; 87340; 87641; 88304; 93970; 96361; 96374; A7015; A9537; C1726; C1757; G0480; J0330; J0690; J0696; J1100; J1644; J1650; J1885; J2001; J2020; J2248; J2405; J2543; J2704; J2710; J3010; J3490; J7030; J7120; Q9966; Q9967; 97110; 97116; 99285-25

== ENCOUNTER 2019-02-15 17:25 | Inpatient (IN) | payer OTHER ==
[~2019-02-15] VITALS: Ht 195.6 cm; Wt 163.7 kg
[~2019-02-15 17:25] MED LIST: AMOX1TAB11 PO; ATOR20TA58 PO; BUSP30TA PO; CALC200T3 PO; DOCU-109 PO; FLUO40CA9 PO; HALO10TA PO; LACT1CAP19 PO; LISI2.5T PO; METF500T16 PO; MIRT15TA PO; OLAN15TA3 PO; PANT20TA2 PO; RANI-376 PO
[2019-02-15] MEDS ORDERED: HYDROcodone/APAP 5/325MG 1 TAB TABLET PO ONE (20:00)
[2019-02-15 20:27] LABS: BASO # 0.2 x10^3/uL (0.0-0.2); BASO % 1 % (0-3); EOS # 0.2 x10^3/uL (0.0-0.7); EOS % 2 % (0-3); HEMATOCRIT 30.2 % (39.0-53.0); HEMOGLOBIN 9.6 g/dL (13.0-17.5); LYMPH # 4.3 x10^3/uL (1.0-4.8); LYMPH % 30 % (24-48); MEAN CORPUSCULAR HEMOGLOBIN 30 pg (25-35); MEAN CORPUSCULAR HGB CONC 32 g/dL (31-37); MEAN CORPUSCULAR VOLUME 95 fL (79-100); MONO # 1.5 x10^3/uL (0.0-1.1); MONO % 10 % (0-9); NEUT # 8.5 x10^3uL (1.8-7.7); NEUT % 58 % (31-73); PLATELET COUNT 650 x10^3/uL (140-400); RED BLOOD COUNT 3.19 x10^6/uL (4.30-5.70); RED CELL DISTRIBUTION WIDTH 15.6 % (11.5-14.5); WHITE BLOOD COUNT 14.7 x10^3/uL (4.0-11.0)
[2019-02-15 20:31] LABS: CALCIUM 9.1 mg/dL (8.5-10.1); GFR 84.1
[2019-02-15 20:37] LABS: ALBUMIN 2.9 g/dL (3.4-5.0); ALBUMIN/GLOBULIN RATIO 0.5 (1.0-1.7); TOTAL BILIRUBIN 0.7 mg/dL (0.2-1.0); TOTAL PROTEIN 8.6 g/dL (6.4-8.2)
[2019-02-15] MEDS ORDERED: IV NORMAL SALINE 1000ML BAG 1,000 ML IV ONE (20:45)
[2019-02-15] MEDS ORDERED: IOHEXOL 300 MG/ML 100ML VIAL. IV ONE (21:00)
--- NOTE | 2019-02-15 21:45 | RAD ---
CT scan of the abdomen and pelvis with contrast 02/15/2019 CLINICAL HISTORY: Abdominal pain. Recent cholecystectomy. TECHNIQUE: After the intravenous administration of 75 cc of Omnipaque 300, contiguous, 5 mm axial sections were obtained through the abdomen and pelvis. One or more of the following individualized dose reduction techniques were utilized for this study: 1. Automated exposure control. 2. Adjustment of the mA and/or kV according to patient size. 3. Use of iterative reconstruction technique. FINDINGS: Comparison study is dated 02/02/2019. Images through the lung bases are within normal limits. The spleen, pancreas, adrenal glands and kidneys are within normal limits. A somewhat linear area of decreased attenuation is seen involving the inferior aspect of the right lobe of the liver which measures 2.7 cm in length[address] Its CT appearance is nonspecific. It could represent a small hepatic laceration. Surgical clips are seen within the gallbladder fossa consistent with a cholecystectomy. The surgical drain has been retracted. The tip of the drain is within the subcutaneous fat within the anterior abdominal wall 2.3 cm deep to the skin surface. Low-attenuation slightly heterogeneous fluid is seen within the gallbladder fossa. Small collections of air are seen. The fluid has increased since the previous examination. The fluid tracks medially and inferiorly along the right lobe of the liver into the subcapsular space, inferiorly. These findings could be seen with a hematoma or potentially a bile leak. Mild atherosclerotic calcification of the abdominal aorta is seen. The abdominal aorta tapers normally. There is no evidence of bowel obstruction. No free fluid or free air is seen within the abdomen. Images through the pelvis demonstrate the urinary bladder distended with urine. Calcifications are seen within the pelvis consistent with phleboliths. A small amount of free fluid is seen within the pelvis which has decreased since the previous study. The osseous structures are unchanged. IMPRESSION: Fluid attenuation is seen within the gallbladder fossa which has increased since the previous examination. The surgical drain in this region has been retracted. The tip of the drain is within the subcutaneous fat of the anterior abdominal wall. The fluid within the gallbladder fossa. Represent a hematoma. A bile leak is not excluded. A linear band of decreased attenuation is seen involving the inferior aspect of the right lobe of the liver which may represent a small hepatic laceration. Electronically signed by: Dereje Anthony MD (02/15/2019 9:42 PM) [facility]
--- NOTE | 2019-02-15 22:28 | PHYS DOC ---
Past Medical History Past Medical History: No Pertinent History Past Surgical History: Cholecystectomy Additional Past Surgical Histo: Back surgery-2007 Alcohol Use: None Drug Use: None Adult General Chief Complaint Chief Complaint: ABDOMINAL PAIN HPI HPI 38-year-old male presents to ER via skilled nursing transport for complaints of ongoing abdominal pain following a laparoscopic cholecystectomy on 01/30/19 and per his records had an ERCP with sphincterotomy on 02/08. Patient was discharged from the hospital on 02/10/19 and patient states he has had abdominal pain since then. Patient states he had concerns as his VIKY drain was not holding suction so he was brought to the ER for evaluation. Patient reports he has been eating denies any nausea or vomiting. Pt reports he has had bowel movements since being discharged. Review of Systems Review of Systems Constitutional: Denies fever or chills [] Eyes: Denies change in visual acuity, redness, or eye pain [] HENT: Denies nasal congestion or sore throat [] Respiratory: Denies cough or shortness of breath [] Cardiovascular: No additional information not addressed in HPI [] GI: Denies nausea, vomiting, bloody stools or diarrhea. Reports abdominal pain : Denies dysuria or hematuria [] Musculoskeletal: Denies back pain or joint pain [] Integument: Denies rash or skin lesions [] Neurologic: Denies headache, focal weakness or sensory changes [] Endocrine: Denies polyuria or polydipsia [] All other systems were reviewed and found to be within normal limits, except as documented in this note. Current Medications Current Medications Current Medications Medications (Trade) Dose Ordered Sig/Pierce Start Time Stop Time Status Last Admin Dose Admin Acetaminophen/ Hydrocodone Bitart (Lortab 5/325) 1 tab 1X ONCE 02/15/19 20:00 02/15/19 20:19 DC 02/15/19 20:26 1 TAB Fentanyl Citrate (Fentanyl 2ml Vial) 50 mcg PRN Q3HRS PRN 02/15/19 22:30 02/16/19 22:29 Iohexol (Omnipaque 300 Mg/ml) 75 ml 1X ONCE 02/15/19 21:00 02/15/19 21:01 DC 02/15/19 21:13 75 ML Ondansetron HCl (Zofran) 4 mg PRN Q8HRS PRN 02/15/19 22:30 02/16/19 22:29 Piperacillin Sod/ Tazobactam Sod 3.375 gm/Sodium Chloride 50 ml @ 100 mls/hr 1X ONCE 02/15/19 22:30 02/15/19 22:59 Sodium Chloride 1,000 ml @ 125 mls/hr Q8H 02/15/19 22:30 02/16/19 22:29 Allergies Allergies Allergies Coded Allergies Type Severity Reaction Last Updated Verified codeine Allergy Intermediate Hives 02/07/19 Yes I S O L A T I O N *CONTACT* Allergy Unknown 01/30/19 Yes lithium Adverse Reaction Severe SEIZURE 02/07/19 Yes Physical Exam Physical Exam Constitutional: Well developed, well nourished, no acute distress, non-toxic appearance. [] HENT: Normocephalic, atraumatic, oropharynx moist, nose normal. [] Eyes: Pupils equal, conjunctiva normal, no discharge. [] Neck: Normal range of motion, no tenderness, supple, no stridor. [] Cardiovascular: Heart rate regular rhythm, no murmur [] Lungs & Thorax: Bilateral breath sounds clear to auscultation- resp. equal/nonlabored Abdomen: Bowel sounds normal, soft/obese, diffuse tenderness in all abd- tenderness around healing incision/rt lower abd VIKY drain which patient reports is similar to when discharged- no erythema/drainage around drain site-, no masses, no pulsatile masses. [] Skin: Warm, dry, no erythema, no rash. [] Back: No tenderness, no CVA tenderness. [] Extremities: No tenderness, no cyanosis, no clubbing, ROM intact, no edema. [] Neurologic: Alert and oriented X 3, normal motor function, normal sensory function, no focal deficits noted. [] Psychologic: Affect normal, judgement normal, mood normal. [] Current Patient Data Vital Signs Vital Signs Date Time Temp Pulse Resp B/P (MAP) Pulse Ox O2 Delivery O2 Flow Rate FiO2 02/15/19 20:40 90 159/65 (96) 98 Room Air 02/15/19 20:26 20 02/15/19 18:49 98.7 98.7 Lab Values Laboratory Tests Test 02/15/19 20:05 White Blood Count 14.7 x10^3/uL (4.0-11.0) H Red Blood Count 3.19 x10^6/uL (4.30-5.70) L Hemoglobin 9.6 g/dL (13.0-17.5) L Hematocrit 30.2 % (39.0-53.0) L Mean Corpuscular Volume 95 fL (79-100) Mean Corpuscular Hemoglobin 30 pg (25-35) Mean Corpuscular Hemoglobin Concent 32 g/dL (31-37) Red Cell Distribution Width 15.6 % (11.5-14.5) H Platelet Count 650 x10^3/uL (140-400) H Neutrophils (%) (Auto) 58 % (31-73) Lymphocytes (%) (Auto) 30 % (24-48) Monocytes (%) (Auto) 10 % (0-9) H Eosinophils (%) (Auto) 2 % (0-3) Basophils (%) (Auto) 1 % (0-3) Neutrophils # (Auto) 8.5 x10^3uL (1.8-7.7) H Lymphocytes # (Auto) 4.3 x10^3/uL (1.0-4.8) Monocytes # (Auto) 1.5 x10^3/uL (0.0-1.1) H Eosinophils # (Auto) 0.2 x10^3/uL (0.0-0.7) Basophils # (Auto) 0.2 x10^3/uL (0.0-0.2) Sodium Level 140 mmol/L (136-145) Potassium Level 4.0 mmol/L (3.5-5.1) Chloride Level 103 mmol/L (98-107) Carbon Dioxide Level 27 mmol/L (21-32) Anion Gap 10 (6-14) Blood Urea Nitrogen 12 mg/dL (8-26) Creatinine 1.0 mg/dL (0.7-1.3) Estimated GFR (Cockcroft-Gault) 84.1 BUN/Creatinine Ratio 12 (6-20) Glucose Level 95 mg/dL (70-99) Calcium Level 9.1 mg/dL (8.5-10.1) Total Bilirubin 0.7 mg/dL (0.2-1.0) Aspartate Amino Transferase (AST) 30 U/L (15-37) Alanine Aminotransferase (ALT) 38 U/L (16-63) Alkaline Phosphatase 132 U/L (46-116) H Total Protein 8.6 g/dL (6.4-8.2) H Albumin 2.9 g/dL (3.4-5.0) L Albumin/Globulin Ratio 0.5 (1.0-1.7) L Lipase 113 U/L (73-393) Laboratory Tests 02/15/19 20:05 Laboratory Tests 02/15/19 20:05 EKG EKG [] Radiology/Procedures Radiology/Procedures []PROCEDURE: CT ABD PELV W/ IV CONTRST ONLY CT scan of the abdomen and pelvis with contrast 02/15/2019 CLINICAL HISTORY: Abdominal pain. Recent cholecystectomy. TECHNIQUE: After the intravenous administration of 75 cc of Omnipaque 300, contiguous, 5 mm axial sections were obtained through the abdomen and pelvis. One or more of the following individualized dose reduction techniques were utilized for this study: 1. Automated exposure control. 2. Adjustment of the mA and/or kV according to patient size. 3. Use of iterative reconstruction technique. FINDINGS: Comparison study is dated 02/02/2019. Images through the lung bases are within normal limits. The spleen, pancreas, adrenal glands and kidneys are within normal limits. A somewhat linear area of decreased attenuation is seen involving the inferior aspect of the right lobe of the liver which measures 2.7 [address] in length[address] Its CT appearance is nonspecific. It could represent a small hepatic laceration. Surgical clips are seen within the gallbladder fossa consistent with a cholecystectomy. The surgical drain has been retracted. The tip of the drain is within the subcutaneous fat within the anterior abdominal wall 2.3 cm deep to the skin surface. Low-attenuation slightly heterogeneous fluid is seen within the gallbladder fossa. Small collections of air are seen. The fluid has increased since the previous examination. The fluid tracks medially and inferiorly along the right lobe of the liver into the subcapsular space, inferiorly. These findings could be seen with a hematoma or potentially a bile leak. Mild atherosclerotic calcification of the abdominal aorta is seen. The abdominal aorta tapers normally. There is no evidence of bowel obstruction. No free fluid or free air is seen within the abdomen. Images through the pelvis demonstrate the urinary bladder distended with urine. Calcifications are seen within the pelvis consistent with phleboliths. A small amount of free fluid is seen within the pelvis which has decreased since the previous study. The osseous structures are unchanged. IMPRESSION: Fluid attenuation is seen within the gallbladder fossa which has increased since the previous examination. The surgical drain in this region has been retracted. The tip of the drain is within the subcutaneous fat of the anterior abdominal wall. The fluid within the gallbladder fossa. Represent a hematoma. A bile leak is not excluded. A linear band of decreased attenuation is seen involving the inferior aspect of the right lobe of the liver which may represent a small hepatic laceration. Electronically signed by: Dereje Anthony MD (02/15/2019 9:42 PM) [facility] DICTATED and SIGNED BY: DEREJE ANTHONY MD DATE: 02/15/192141 Course & Med Decision Making Course & Med Decision Making Pertinent Labs and Imaging studies reviewed. (See chart for details) Pt was evaluated in the ER for concerns his VIKY drain wasn't draining- new bulb placed on VIKY drain w/yellowish drainage in line. No bloody drainage. Pt has c/o ongoing abd pain is cholecystectomy done on 429. Patient was discharged from the hospital on 02/10/19 reports pain has been ongoing since discharge. Patient had labs obtained with WBCs elevated at 14.7 which is up from 10 at time of discharge. LFTs and lipase were normal limits. Patient had CT abdomen and pelvis with report of increased fluid collection 2210: Spoke with Dr. Ma, foreign collection clerk Gen. Surg. and discussed pt's case/CT results and admit plan. Blood cxs and lactic acid will be obtained and pt will be given dose of IV Zosyn. Will admit to hospitalist services for further care. Dragon Disclaimer Dragon Disclaimer This electronic medical record was generated, in whole or in part, using a voice recognition dictation system. Departure Departure Impression: Primary Impression: Abdominal pain Disposition: ADMITTED INPATIENT Admitting Physician: Other (Dr. Baires) Condition: STABLE Referrals: NO PCP (PCP) ALEN DE LUNA DIRECTORY ASSISTANCE OPERATOR February 15, 2019 22:28
[2019-02-15] MEDS ORDERED: PIPERACILLIN/TAZOBACTAM 3.375 GM in IV NORMAL SALINE 50ML 50 ML IV ONE (22:30)
[2019-02-15] MEDS ORDERED: ONDANSETRON PF 4 MG/2 ML VIAL. IV PRN (22:30)
[2019-02-15] MEDS: fentaNYL PF VIAL 100 MCG/2 ML VIAL IV PRN (23:48)
[2019-02-15] MEDS: IV NORMAL SALINE 1000ML BAG 1,000 ML IV SCH (23:53)
[2019-02-16] VITALS (17 sets, daily range): BP systolic 108–142; BP diastolic 69–88
--- NOTE | 2019-02-16 01:25 | NUR ---
The patient, HALEY AHMADI, 38 y/o, M admitted by POONAM RASHID MD, was given written information regarding hospital policies, unit procedures and contact persons. Comfort and pain management discuss. POC done. Pt verbalize understanding. Call-light within reach. Two guards at bedside. Will continue to monitor.
[2019-02-16] MEDS: fentaNYL PF VIAL 100 MCG/2 ML VIAL IV PRN ×7 (02:58→22:28)
[2019-02-16] MEDS: IV NORMAL SALINE 1000ML BAG 1,000 ML IV SCH ×2 (07:18→17:23)
--- NOTE | 2019-02-16 08:53 | PDOC2 ---
SCAR HOUSE TEACHER VISUALLY IMPAIRED 02/16/19 0853: CONSULT Date of Consult Date of Consult DATE: 02/16/19 TIME: 08:48 Reason for Consult Reason for Consult: s/p bonita Referring Physician Referring Physician: ER Identification/Chief Complaint Chief Complaint abdominal pain, drain not functioning Source Source: Chart review, Patient History of Present Illness Reason for Visit: patient known from lap bonita, CBDE wtih dr Godoy, bile leak required stent. Discharged with drain in place. Drain stopped suctioning, he had increased pain. Reports some constipation. No emesis. Tolerating diet Past Medical History GI: GERD Psych: Schizophrenia Past Surgical History Past Surgical History: Cholecystectomy Family History Family History: Diabetes Social History ALCOHOL: none Drugs: None Current Problem List Problem List Problems Medical Problems: (1) Abdominal pain Status: Acute Current Medications Current Medications Current Medications Acetaminophen/ Hydrocodone Bitart (Lortab 5/325) 1 tab 1X ONCE PO Last administered on 02/15/19at 20:26; Start 02/15/19 at 20:00; Stop 02/15/19 at 20:19; Status DC Sodium Chloride 1,000 ml @ 1,000 mls/hr 1X ONCE IV Last administered on 02/15/19at 20:57; Start 02/15/19 at 20:45; Stop 02/15/19 at 21:44; Status DC Iohexol (Omnipaque 300 Mg/ml) 75 ml 1X ONCE IV Last administered on 02/15/19at 21:13; Start 02/15/19 at 21:00; Stop 02/15/19 at 21:01; Status DC Ondansetron HCl (Zofran) 4 mg PRN Q8HRS PRN IV NAUSEA/VOMITING; Start 02/15/19 at 22:30; Stop 02/16/19 at 22:29 Fentanyl Citrate (Fentanyl 2ml Vial) 50 mcg PRN Q3HRS PRN IV PAIN Last administered on 02/16/19at 06:01; Start 02/15/19 at 22:30; Stop 02/16/19 at 22:29 Sodium Chloride 1,000 ml @ 125 mls/hr Q8H IV Last administered on 02/16/19at 07:18; Start 02/15/19 at 22:30; Stop 02/16/19 at 22:29 Piperacillin Sod/ Tazobactam Sod 3.375 gm/Sodium Chloride 50 ml @ 100 mls/hr 1X ONCE IV Last administered on 02/15/19at 23:53; Start 02/15/19 at 22:30; Stop 02/15/19 at 22:59; Status DC Active Scripts Active Culturelle (Lactobacillus Rhamnosus Gg) 1 Each Cap.sprink 1 Cap PO BID 30 Days Colace (Docusate Sodium) 100 Mg Capsule 100 Mg PO BID 10 Days Amox Tr-K Clv 875-125 Mg Tab (Amoxicillin/Potassium Clav) 1 Each Tablet 1 Tab PO BID 10 Days Reported Buspirone Hcl 30 Mg Tablet 1 Tab PO BID Protonix (Pantoprazole Sodium) 20 Mg Tablet.dr 2 Tab PO DAILY Zantac (Ranitidine Hcl) 150 Mg Tablet 1 Tab PO HS Tums (Calcium Carbonate) 200 Mg Tab.chew 200 Mg PO TID Zyprexa (Olanzapine) 15 Mg Tablet 1 Tab PO QHS Remeron (Mirtazapine) 15 Mg Tablet 3 Tab PO QHS Lisinopril 2.5 Mg Tablet 1 Tab PO DAILY Haloperidol 10 Mg Tablet 10 Mg PO DAILY Prozac (Fluoxetine Hcl) 40 Mg Capsule 1 Cap PO HS Metformin Hcl 500 Mg Tablet 500 Mg PO BIDWMEALS Allergies Allergies: Coded Allergies: codeine (Verified Allergy, Intermediate, Hives, 02/07/19) TOLERATES OXYCODONE I S O L A T I O N *CONTACT* (Verified Allergy, Unknown, 01/30/19) +MRSA screen 01/28/19 lithium (Verified Adverse Reaction, Severe, SEIZURE, 02/07/19) ROS General: YES: Chills; No: Other (fevers ) PSYCHOLOGICAL ROS: No: Anxiety, Depression Eyes: No Blurry vision, No Double vision HEENT: No: Heacaches, Sore Throat Hematological and Lymphatic: No: Bleeding Problems, Blood Clots Respiratory: No: Cough, Shortness of breath Cardiovascular: No Chest Pain, No Palpitations Gastrointestinal: Yes Other (see hpi) Genitourinary: No Dysuria, No Hematuria Musculoskeletal: No Joint Pain, No Muscle Pain Neurological: No Confusion, No Numbness/Tingling Skin: No Pruritus, No Rash Physical Exam General: Alert, Oriented X3, Cooperative, No acute distress HEENT: PERRLA, Mucous membr. moist/pink Lungs: Clear to auscultation, Normal air movement Heart: Regular rate, Normal S1, Normal S2 Abdomen: Soft, Other (tenderness to upper abdomen, drain in place) Extremities: No clubbing, No cyanosis Skin: No rashes, No breakdown Neuro: Normal gait, Normal speech Psych/Mental Status: Mental status NL, Mood NL MUSCULOSKELETAL: No deformity, No swelling Vitals VITALS Vital Signs Date Time Temp Pulse Resp B/P (MAP) Pulse Ox O2 Delivery O2 Flow Rate FiO2 02/16/19 06:31 Room Air 02/16/19 03:00 98.9 75 18 108/69 (82) 96 98.9 Labs Labs Laboratory Tests Test 02/15/19 20:05 02/15/19 23:24 White Blood Count 14.7 x10^3/uL (4.0-11.0) Red Blood Count 3.19 x10^6/uL (4.30-5.70) Hemoglobin 9.6 g/dL (13.0-17.5) Hematocrit 30.2 % (39.0-53.0) Mean Corpuscular Volume 95 fL (79-100) Mean Corpuscular Hemoglobin 30 pg (25-35) Mean Corpuscular Hemoglobin Concent 32 g/dL (31-37) Red Cell Distribution Width 15.6 % (11.5-14.5) Platelet Count 650 x10^3/uL (140-400) Neutrophils (%) (Auto) 58 % (31-73) Lymphocytes (%) (Auto) 30 % (24-48) Monocytes (%) (Auto) 10 % (0-9) Eosinophils (%) (Auto) 2 % (0-3) Basophils (%) (Auto) 1 % (0-3) Neutrophils # (Auto) 8.5 x10^3uL (1.8-7.7) Lymphocytes # (Auto) 4.3 x10^3/uL (1.0-4.8) Monocytes # (Auto) 1.5 x10^3/uL (0.0-1.1) Eosinophils # (Auto) 0.2 x10^3/uL (0.0-0.7) Basophils # (Auto) 0.2 x10^3/uL (0.0-0.2) Sodium Level 140 mmol/L (136-145) Potassium Level 4.0 mmol/L (3.5-5.1) Chloride Level 103 mmol/L (98-107) Carbon Dioxide Level 27 mmol/L (21-32) Anion Gap 10 (6-14) Blood Urea Nitrogen 12 mg/dL (8-26) Creatinine 1.0 mg/dL (0.7-1.3) Estimated GFR (Cockcroft-Gault) 84.1 BUN/Creatinine Ratio 12 (6-20) Glucose Level 95 mg/dL (70-99) Calcium Level 9.1 mg/dL (8.5-10.1) Total Bilirubin 0.7 mg/dL (0.2-1.0) Aspartate Amino Transf (AST/SGOT) 30 U/L (15-37) Alanine Aminotransferase (ALT/SGPT) 38 U/L (16-63) Alkaline Phosphatase 132 U/L (46-116) Total Protein 8.6 g/dL (6.4-8.2) Albumin 2.9 g/dL (3.4-5.0) Albumin/Globulin Ratio 0.5 (1.0-1.7) Lipase 113 U/L (73-393) Lactic Acid Level 0.6 mmol/L (0.4-2.0) Laboratory Tests Test 02/15/19 20:05 02/15/19 23:24 White Blood Count 14.7 x10^3/uL (4.0-11.0) Red Blood Count 3.19 x10^6/uL (4.30-5.70) Hemoglobin 9.6 g/dL (13.0-17.5) Hematocrit 30.2 % (39.0-53.0) Mean Corpuscular Volume 95 fL (79-100) Mean Corpuscular Hemoglobin 30 pg (25-35) Mean Corpuscular Hemoglobin Concent 32 g/dL (31-37) Red Cell Distribution Width 15.6 % (11.5-14.5) Platelet Count 650 x10^3/uL (140-400) Neutrophils (%) (Auto) 58 % (31-73) Lymphocytes (%) (Auto) 30 % (24-48) Monocytes (%) (Auto) 10 % (0-9) Eosinophils (%) (Auto) 2 % (0-3) Basophils (%) (Auto) 1 % (0-3) Neutrophils # (Auto) 8.5 x10^3uL (1.8-7.7) Lymphocytes # (Auto) 4.3 x10^3/uL (1.0-4.8) Monocytes # (Auto) 1.5 x10^3/uL (0.0-1.1) Eosinophils # (Auto) 0.2 x10^3/uL (0.0-0.7) Basophils # (Auto) 0.2 x10^3/uL (0.0-0.2) Sodium Level 140 mmol/L (136-145) Potassium Level 4.0 mmol/L (3.5-5.1) Chloride Level 103 mmol/L (98-107) Carbon Dioxide Level 27 mmol/L (21-32) Anion Gap 10 (6-14) Blood Urea Nitrogen 12 mg/dL (8-26) Creatinine 1.0 mg/dL (0.7-1.3) Estimated GFR (Cockcroft-Gault) 84.1 BUN/Creatinine Ratio 12 (6-20) Glucose Level 95 mg/dL (70-99) Calcium Level 9.1 mg/dL (8.5-10.1) Total Bilirubin 0.7 mg/dL (0.2-1.0) Aspartate Amino Transf (AST/SGOT) 30 U/L (15-37) Alanine Aminotransferase (ALT/SGPT) 38 U/L (16-63) Alkaline Phosphatase 132 U/L (46-116) Total Protein 8.6 g/dL (6.4-8.2) Albumin 2.9 g/dL (3.4-5.0) Albumin/Globulin Ratio 0.5 (1.0-1.7) Lipase 113 U/L (73-393) Lactic Acid Level 0.6 mmol/L (0.4-2.0) Assessment/Plan Assessment/Plan remove current drain--in sub q space fluid collection in gb fossa--will ask IR to eval for possible perc drain JANA GODOY MD 02/16/19 1254: CONSULT Assessment/Plan Assessment/Plan Pt seen and examined. Agree with Ms. House's note Pt with c/o RUQ pain and chills s/p IR drainage of fluid collection, bilious in nature LFTs appropriate will heal, given time and drain Thanks for consult! SCAR HOUSE TEACHER VISUALLY IMPAIRED February 16, 2019 08:53 JANA GODOY MD February 16, 2019 12:54
--- NOTE | 2019-02-16 09:15 | PDOC1 ---
History and Physical Date of Admission Date of Admission DATE: 02/16/19 TIME: 09:10 Identification/Chief Complaint Chief Complaint Abdominal Pain Source Source: Patient History of Present Illness History of Present Illness 38-year-old male presents to ER via care home transport for complaints of ongoing abdominal pain following a laparoscopic cholecystectomy on 01/30/19 and per his records had an ERCP with sphincterotomy on 02/08. Patient was discharged from the hospital on 02/10/19 and patient states he has had abdominal pain since then. Patient states he had concerns as his VIKY drain was not holding suction so he was brought to the ER for evaluation. Patient reports he has been eating denies any nausea or vomiting. Pt reports he has had bowel movements since being discharged. Has leukocytosis, anemia. Normal labs otherwise. Afebrile, but tachycardia and tachypnea CT concerning for fluid, hematoma vs biloma, etc. VIKY drain retracted on CT. Past Medical History GI: GERD Psych: Schizophrenia Past Surgical History Past Surgical History: Cholecystectomy Family History Family History: Diabetes Social History Smoke: No ALCOHOL: none Drugs: None Current Problem List Problem List Problems Medical Problems: (1) Abdominal pain Status: Acute Current Medications Current Medications Current Medications Acetaminophen/ Hydrocodone Bitart (Lortab 5/325) 1 tab 1X ONCE PO Last administered on 02/15/19at 20:26; Start 02/15/19 at 20:00; Stop 02/15/19 at 20:19; Status DC Sodium Chloride 1,000 ml @ 1,000 mls/hr 1X ONCE IV Last administered on 02/15/19at 20:57; Start 02/15/19 at 20:45; Stop 02/15/19 at 21:44; Status DC Iohexol (Omnipaque 300 Mg/ml) 75 ml 1X ONCE IV Last administered on 02/15/19at 21:13; Start 02/15/19 at 21:00; Stop 02/15/19 at 21:01; Status DC Ondansetron HCl (Zofran) 4 mg PRN Q8HRS PRN IV NAUSEA/VOMITING; Start 02/15/19 at 22:30; Stop 02/16/19 at 22:29 Fentanyl Citrate (Fentanyl 2ml Vial) 50 mcg PRN Q3HRS PRN IV PAIN Last administered on 02/16/19at 06:01; Start 02/15/19 at 22:30; Stop 02/16/19 at 22:29 Sodium Chloride 1,000 ml @ 125 mls/hr Q8H IV Last administered on 02/16/19at 07:18; Start 02/15/19 at 22:30; Stop 02/16/19 at 22:29 Piperacillin Sod/ Tazobactam Sod 3.375 gm/Sodium Chloride 50 ml @ 100 mls/hr 1X ONCE IV Last administered on 02/15/19at 23:53; Start 02/15/19 at 22:30; Stop 02/15/19 at 22:59; Status DC Active Scripts Active Culturelle (Lactobacillus Rhamnosus Gg) 1 Each Cap.sprink 1 Cap PO BID 30 Days Colace (Docusate Sodium) 100 Mg Capsule 100 Mg PO BID 10 Days Amox Tr-K Clv 875-125 Mg Tab (Amoxicillin/Potassium Clav) 1 Each Tablet 1 Tab PO BID 10 Days Reported Buspirone Hcl 30 Mg Tablet 1 Tab PO BID Protonix (Pantoprazole Sodium) 20 Mg Tablet.dr 2 Tab PO DAILY Zantac (Ranitidine Hcl) 150 Mg Tablet 1 Tab PO HS Tums (Calcium Carbonate) 200 Mg Tab.chew 200 Mg PO TID Zyprexa (Olanzapine) 15 Mg Tablet 1 Tab PO QHS Remeron (Mirtazapine) 15 Mg Tablet 3 Tab PO QHS Lisinopril 2.5 Mg Tablet 1 Tab PO DAILY Haloperidol 10 Mg Tablet 10 Mg PO DAILY Prozac (Fluoxetine Hcl) 40 Mg Capsule 1 Cap PO HS Metformin Hcl 500 Mg Tablet 500 Mg PO BIDWMEALS Allergies Allergies: Coded Allergies: codeine (Verified Allergy, Intermediate, Hives, 02/07/19) TOLERATES OXYCODONE I S O L A T I O N *CONTACT* (Verified Allergy, Unknown, 01/30/19) +MRSA screen 01/28/19 lithium (Verified Adverse Reaction, Severe, SEIZURE, 02/07/19) ROS General: YES: Chills, Night Sweats, Fatigue, Malaise PSYCHOLOGICAL ROS: YES: Anxiety; No: Behavioral Disorder, Concentration difficultie, Decreased libido, Depression, Disorientation, Hallucinations, Hostility, Irritablity, Memory difficulties, Mood Swings, Obsessive thoughts, Physical abuse, Sexual abuse, Sleep disturbances, Suicidal ideation, Other Eyes: No Blurry vision, No Decreased vision, No Double vision, No Dry eyes, No Excessive tearing, No Eye Pain, No Itchy Eyes, No Loss of vision, No Photophobia, No Scotomata, No Uses contacts, No Uses glasses, No Other HEENT: No: Heacaches, Visual Changes, Hearing change, Nasal congestion, Nasal discharge, Oral lesions, Sinus pain, Sore Throat, Epistaxis, Sneezing, Snoring, Tinnitus, Vertigo, Vocal changes, Other ALLERGY AND IMMUNOLOGY: No: Hives, Insect Bite Sensitivity, Itchy/Watery Eyes, Nasal Congestion, Post Nasal Drip, Seasonal Allergies, Other Hematological and Lymphatic: No: Bleeding Problems, Blood Clots, Blood Transfusions, Brusing, Night Sweats, Pallor, Swollen Lymph Nodes, Other ENDOCRINE: No: Breast Changes, Galactorrhea, Hair Pattern Changes, Hot Flashes, Malaise/lethargy, Mood Swings, Palpitations, Polydipsia/polyuria, Skin Changes, Temperature Intolerance, Unexpected Weight Changes, Other Breast: No New/Changing Breast Lumps, No Nipple changes, No Nipple discharge, No Other Respiratory: No: Cough, Hemoptysis, Orthopnea, Pleuritic Pain, Shortness of breath, SOB with excertion, Sputum Changes, Stridor, Tachypnea, Wheezing, Other Cardiovascular: No Chest Pain, No Palpitations, No Orthopnea, No Paroxysmal Noc. Dyspnea, No Edema, No Lt Headedness, No Other Gastrointestinal: Yes Nausea, Yes Abdominal Pain; No Vomiting, No Diarrhea, No Constipation, No Melena, No Hematochezia, No Other Genitourinary: No Dysuria, No Frequency, No Incontinence, No Hematuria, No Retention, No Discharge, No Urgency, No Pain, No Flank Pain, No Other, No , No , No , No , No , No , No Musculoskeletal: No Gait Disturbance, No Joint Pain, No Joint Stiffness, No Joint Swelling, No Muscle Pain, No Muscular Weakness, No Pain In:, No Swelling In:, No Other Neurological: No Behavorial Changes, No Bowel/Bladder ControlChng, No Conf usion, No Dizziness, No Gait Disturbance, No Headaches, No Impaired Coord/balance, No Memory Loss, No Numbness/Tingling, No Seizures, No Speech Problems, No Tremors, No Visual Changes, No Weakness, No Other Skin: No Dry Skin, No Eczema, No Hair Changes, No Lumps, No Mole Changes, No Mottling, No Nail Changes, No Pruritus, No Rash, No Skin Lesion Changes, No Ot her, No Acne Physical Exam General: Alert, Oriented X3, Cooperative, No acute distress HEENT: Atraumatic, PERRLA, EOMI, Mucous membr. moist/pink Lungs: Clear to auscultation, Normal air movement Heart: S1S2, RRR, no gallops, no murmurs Abdomen: Normal bowel sounds, Soft, No hepatosplenomegaly, No masses, Other (RUQ dressing intact, painful in all quadrants) Extremities: No clubbing, No cyanosis, No edema, Normal pulses, No tenderness/swelling Skin: No rashes, No breakdown, No significant lesion Neuro: Normal gait, Normal speech, Strength at 5/5 X4 ext, Normal tone, Sensation intact, Cranial nerves 3-12 NL, Reflexes 2+ Psych/Mental Status: Mental status NL, Mood NL Vitals Vitals Vital Signs Date Time Temp Pulse Resp B/P (MAP) Pulse Ox O2 Delivery O2 Flow Rate FiO2 02/16/19 07:00 98.8 91 18 117/71 (86) 96 Room Air 98.8 Labs Labs Laboratory Tests Test 02/15/19 20:05 02/15/19 23:24 White Blood Count 14.7 x10^3/uL (4.0-11.0) Red Blood Count 3.19 x10^6/uL (4.30-5.70) Hemoglobin 9.6 g/dL (13.0-17.5) Hematocrit 30.2 % (39.0-53.0) Mean Corpuscular Volume 95 fL (79-100) Mean Corpuscular Hemoglobin 30 pg (25-35) Mean Corpuscular Hemoglobin Concent 32 g/dL (31-37) Red Cell Distribution Width 15.6 % (11.5-14.5) Platelet Count 650 x10^3/uL (140-400) Neutrophils (%) (Auto) 58 % (31-73) Lymphocytes (%) (Auto) 30 % (24-48) Monocytes (%) (Auto) 10 % (0-9) Eosinophils (%) (Auto) 2 % (0-3) Basophils (%) (Auto) 1 % (0-3) Neutrophils # (Auto) 8.5 x10^3uL (1.8-7.7) Lymphocytes # (Auto) 4.3 x10^3/uL (1.0-4.8) Monocytes # (Auto) 1.5 x10^3/uL (0.0-1.1) Eosinophils # (Auto) 0.2 x10^3/uL (0.0-0.7) Basophils # (Auto) 0.2 x10^3/uL (0.0-0.2) Sodium Level 140 mmol/L (136-145) Potassium Level 4.0 mmol/L (3.5-5.1) Chloride Level 103 mmol/L (98-107) Carbon Dioxide Level 27 mmol/L (21-32) Anion Gap 10 (6-14) Blood Urea Nitrogen 12 mg/dL (8-26) Creatinine 1.0 mg/dL (0.7-1.3) Estimated GFR (Cockcroft-Gault) 84.1 BUN/Creatinine Ratio 12 (6-20) Glucose Level 95 mg/dL (70-99) Calcium Level 9.1 mg/dL (8.5-10.1) Total Bilirubin 0.7 mg/dL (0.2-1.0) Aspartate Amino Transf (AST/SGOT) 30 U/L (15-37) Alanine Aminotransferase (ALT/SGPT) 38 U/L (16-63) Alkaline Phosphatase 132 U/L (46-116) Total Protein 8.6 g/dL (6.4-8.2) Albumin 2.9 g/dL (3.4-5.0) Albumin/Globulin Ratio 0.5 (1.0-1.7) Lipase 113 U/L (73-393) Lactic Acid Level 0.6 mmol/L (0.4-2.0) Laboratory Tests Test 02/15/19 20:05 02/15/19 23:24 White Blood Count 14.7 x10^3/uL (4.0-11.0) Red Blood Count 3.19 x10^6/uL (4.30-5.70) Hemoglobin 9.6 g/dL (13.0-17.5) Hematocrit 30.2 % (39.0-53.0) Mean Corpuscular Volume 95 fL (79-100) Mean Corpuscular Hemoglobin 30 pg (25-35) Mean Corpuscular Hemoglobin Concent 32 g/dL (31-37) Red Cell Distribution Width 15.6 % (11.5-14.5) Platelet Count 650 x10^3/uL (140-400) Neutrophils (%) (Auto) 58 % (31-73) Lymphocytes (%) (Auto) 30 % (24-48) Monocytes (%) (Auto) 10 % (0-9) Eosinophils (%) (Auto) 2 % (0-3) Basophils (%) (Auto) 1 % (0-3) Neutrophils # (Auto) 8.5 x10^3uL (1.8-7.7) Lymphocytes # (Auto) 4.3 x10^3/uL (1.0-4.8) Monocytes # (Auto) 1.5 x10^3/uL (0.0-1.1) Eosinophils # (Auto) 0.2 x10^3/uL (0.0-0.7) Basophils # (Auto) 0.2 x10^3/uL (0.0-0.2) Sodium Level 140 mmol/L (136-145) Potassium Level 4.0 mmol/L (3.5-5.1) Chloride Level 103 mmol/L (98-107) Carbon Dioxide Level 27 mmol/L (21-32) Anion Gap 10 (6-14) Blood Urea Nitrogen 12 mg/dL (8-26) Creatinine 1.0 mg/dL (0.7-1.3) Estimated GFR (Cockcroft-Gault) 84.1 BUN/Creatinine Ratio 12 (6-20) Glucose Level 95 mg/dL (70-99) Calcium Level 9.1 mg/dL (8.5-10.1) Total Bilirubin 0.7 mg/dL (0.2-1.0) Aspartate Amino Transf (AST/SGOT) 30 U/L (15-37) Alanine Aminotransferase (ALT/SGPT) 38 U/L (16-63) Alkaline Phosphatase 132 U/L (46-116) Total Protein 8.6 g/dL (6.4-8.2) Albumin 2.9 g/dL (3.4-5.0) Albumin/Globulin Ratio 0.5 (1.0-1.7) Lipase 113 U/L (73-393) Lactic Acid Level 0.6 mmol/L (0.4-2.0) Images Images CT abdomen - Fluid attenuation is seen within the gallbladder fossa which has increased since the previous examination. The surgical drain in this region has been retracted. The tip of the drain is within the subcutaneous fat of the anterior abdominal wall. The fluid within the gallbladder fossa. Represent a hematoma. A bile leak is not excluded. A linear band of decreased attenuation is seen involving the inferior aspect of the right lobe of the liver which may represent a small hepatic laceration. VTE Prophylaxis Ordered VTE Prophylaxis Devices: No VTE Pharmacological Prophylaxi: Yes Assessment/Plan Assessment/Plan A/P: Abdominal pain - s/p lap bonita complicated by bile leak last month. Surgery consulted. VIKY drain to be removed and replaced per IR Anemia - likely 2/2 recent infection, surgery, will check iron stores Leukocytosis - meets SIRS criteria with possible infectious source in abdomen. Will consult surgery and consult ID GERD - PPI Schizophrenia - will cont home medications FEN - NPO PPX - SCDs FULL CODE Inpatient for abdominal pain, surgical site pain, likely 2 midnights ROSALVA AVELAR MD February 16, 2019 09:15
[2019-02-16 09:29] LABS: BASO # 0.1 x10^3/uL (0.0-0.2); BASO % 1 % (0-3); EOS # 0.1 x10^3/uL (0.0-0.7); EOS % 1 % (0-3); HEMATOCRIT 27.7 % (39.0-53.0); HEMOGLOBIN 8.8 g/dL (13.0-17.5); LYMPH # 3.2 x10^3/uL (1.0-4.8); LYMPH % 26 % (24-48); MEAN CORPUSCULAR HEMOGLOBIN 30 pg (25-35); MEAN CORPUSCULAR HGB CONC 32 g/dL (31-37); MEAN CORPUSCULAR VOLUME 95 fL (79-100); MONO # 1.2 x10^3/uL (0.0-1.1); MONO % 10 % (0-9); NEUT # 7.6 x10^3uL (1.8-7.7); NEUT % 62 % (31-73); PLATELET COUNT 609 x10^3/uL (140-400); RED BLOOD COUNT 2.93 x10^6/uL (4.30-5.70); RED CELL DISTRIBUTION WIDTH 15.3 % (11.5-14.5); WHITE BLOOD COUNT 12.2 x10^3/uL (4.0-11.0)
[2019-02-16 09:37] LABS: ALBUMIN 2.7 g/dL (3.4-5.0); ALBUMIN/GLOBULIN RATIO 0.5 (1.0-1.7); CALCIUM 8.9 mg/dL (8.5-10.1); GFR 84.1; POTASSIUM 3.7 mmol/L (3.5-5.1); TOTAL BILIRUBIN 0.7 mg/dL (0.2-1.0)
[2019-02-16] MEDS ORDERED: NALOXONE 0.4 MG/ML VIAL. ONE (10:03)
[2019-02-16] MEDS ORDERED: MIDAZOLAM HCL/PF 2 MG/2 ML VIAL. ONE ×2 (10:03→10:56)
[2019-02-16] MEDS ORDERED: fentaNYL PF VIAL 100 MCG/2 ML VIAL ONE ×2 (10:03→11:03)
[2019-02-16] MEDS ORDERED: FLUMAZENIL 0.5 MG/5 ML VIAL. IV ONE (10:03)
[2019-02-16] MEDS ORDERED: LIDOCAINE WITH 8.4% SOD BICARB 3 ML DISP.SYRIN. ONE (10:09)
[2019-02-16] MEDS ORDERED: fentaNYL PF VIAL 100 MCG/2 ML VIAL IV ONE (10:30)
[2019-02-16] MEDS ORDERED: LIDOCAINE WITH 8.4% SOD BICARB 3 ML DISP.SYRIN. IJ ONE (10:30)
[2019-02-16] MEDS ORDERED: MIDAZOLAM HCL/PF 2 MG/2 ML VIAL. IV ONE (10:30)
--- NOTE | 2019-02-16 11:03 | NUR ---
IP: Pt has a hx of + mrsa screen on 01/28/19. Pt to be in contact precautions until there are 2 negative screens 7 days apart.
--- NOTE | 2019-02-16 11:54 | RAD ---
CT-guided drainage, gallbladder fossa fluid collection 02/16/2019 Indication: Gallbladder fossa fluid collection, possible infection, possible biloma Discussion: The risks and benefits of the procedure were discussed the patient. Informed consent was obtained. Timeout procedure was performed. The right upper abdomen was prepped and draped using sterile barrier technique. All elements of maximal sterile barrier technique including the use of a cap, mask, sterile gown, sterile gloves, large sterile sheet, appropriate hand hygiene, and 2% chlorhexidine for cutaneous antisepsis (or acceptable alternative antiseptic per current guidelines) were followed for this procedure. CT imaging redemonstrates a gas fluid collection with gallbladder fossa. 1% lidocaine was administered for local anesthesia. Under intermittent CT guidance 17-gauge needle was advanced into the collection using a transhepatic approach. A guidewire was advanced into the collection over which, following dilatation, a 10 Tajik drain was placed. Bilious output was noted. The catheter was placed on bulb suction. The catheter was secured in place. Sterile dressings were applied. The procedures performed under conscious sedation including continuous cardiopulmonary monitoring via dedicated sedation nurse. Aodx-sr-oewu sedation time: 25 minutes Impression: CT-guided drain placement into the gallbladder fossa fluid collection PQRS Compliance Statement: One or more of the following individualized dose reduction techniques were utilized for this examination: 1. Automated exposure control 2. Adjustment of the mA and/or kV according to patient size 3. Use of iterative reconstruction technique
[2019-02-16] MEDS: LISINOPRIL 5 MG TABLET. PO SCH (17:23)
[2019-02-16] MEDS: PANTOPRAZOLE 40 MG TABLET.DR. PO SCH (17:23)
[2019-02-16] MEDS: HALOPERIDOL 5 MG TABLET. PO SCH (17:24)
[2019-02-16] MEDS: PIPERACILLIN/TAZOBACTAM 3.375 GM in IV NORMAL SALINE 50ML 50 ML IV SCH (18:23)
[2019-02-16] MEDS: LACTOBACILLUS RHAMNOSUS GG 1 CAPSULE. PO SCH (21:10)
[2019-02-16] MEDS: DOCUSATE SODIUM 100 MG CAPSULE. PO SCH (21:10)
[2019-02-16] MEDS: OLANZapine 5 MG TABLET PO SCH (21:10)
[2019-02-16] MEDS: FLUoxetine HCL 20 MG CAPSULE PO SCH (21:11)
[2019-02-16] MEDS: busPIRone 10 MG TABLET. PO SCH (21:11)
[2019-02-16] MEDS: MIRTAZAPINE 15 MG TABLET PO SCH (21:11)
[2019-02-17] MEDS: PIPERACILLIN/TAZOBACTAM 3.375 GM in IV NORMAL SALINE 50ML 50 ML IV SCH ×4 (00:24→17:28)
[2019-02-17 03:00] VITALS: BP 121/81
[2019-02-17] MEDS: fentaNYL PF VIAL 100 MCG/2 ML VIAL IV PRN ×7 (03:09→21:26)
[2019-02-17] MEDS: PANTOPRAZOLE 40 MG TABLET.DR. PO SCH (06:00)
[2019-02-17 07:00] VITALS: BP 123/76
--- NOTE | 2019-02-17 08:20 | PDOC ---
PROGRESS NOTES Chief Complaint Chief Complaint A/P: Abdominal pain - s/p lap bonita complicated by bile leak last month. Surgery consulted. VIKY drain to be removed and replaced per IR Anemia - likely 2/2 recent infection, surgery, will check iron stores Leukocytosis - meets SIRS criteria with possible infectious source in abdomen. Will consult surgery and consult ID GERD - PPI Schizophrenia - will cont home medications FEN - NPO PPX - SCDs FULL CODE Inpatient for abdominal pain, surgical site pain, likely 2 midnights History of Present Illness History of Present Illness 38-year-old male presents to ER via [facility] transport for complaints of ongoing abdominal pain following a laparoscopic cholecystectomy on 01/30/19 and per his records had an ERCP with sphincterotomy on 02/08. Patient was discharged from the hospital on 02/10/19 and patient states he has had abdominal pain since then. Patient states he had concerns as his VIKY drain was not holding suction so he was brought to the ER for evaluation. Patient reports he has been eating denies any nausea or vomiting. Pt reports he has had bowel movements since being discharged. Has leukocytosis, anemia. Normal labs otherwise. Afebrile, but tachycardia and tachypnea CT concerning for fluid, hematoma vs biloma, etc. VIKY drain retracted on CT. Went to IR 02/16/19 to have drain placed with no adverse events. WBC count came down, good drainage. Having BM. Has some pain on standing, but otherwise ok. A bit short of breath this morning. Plan: Antibiotics, f/u cultures, monitor drain output IS bedside. D/c planning I have consulted ID for antibiotic recs Vitals Vitals Vital Signs Date Time Temp Pulse Resp B/P (MAP) Pulse Ox O2 Delivery O2 Flow Rate FiO2 02/17/19 07:15 Room Air 02/17/19 07:00 98.4 95 20 123/76 (92) 98 98.4 02/16/19 11:05 2.0 Physical Exam General: Alert, Oriented X3, Cooperative, No acute distress Heart: Regular rate, Normal S1, Normal S2 Lungs: Clear Abdomen: Normal bowel sounds, Soft, No hepatosplenomegaly, No masses, Other (RUQ dressing intact, painful in all quadrants) Extremities: No clubbing, No cyanosis, No edema, Normal pulses, No tenderness/swelling Skin: No rashes, No breakdown, No significant lesion Assessment and Plan Assessmemt and Plan Problems Medical Problems: (1) Abdominal pain Status: Acute Comment Review of Relevant I have reviewed the following items gustavo (where applicable) has been applied. Labs Laboratory Tests Test 02/15/19 20:05 02/15/19 23:24 02/16/19 00:35 02/16/19 08:12 White Blood Count 14.7 x10^3/uL (4.0-11.0) 12.2 x10^3/uL (4.0-11.0) Red Blood Count 3.19 x10^6/uL (4.30-5.70) 2.93 x10^6/uL (4.30-5.70) Hemoglobin 9.6 g/dL (13.0-17.5) 8.8 g/dL (13.0-17.5) Hematocrit 30.2 % (39.0-53.0) 27.7 % (39.0-53.0) Mean Corpuscular Volume 95 fL (79-100) 95 fL (79-100) Mean Corpuscular Hemoglobin 30 pg (25-35) 30 pg (25-35) Mean Corpuscular Hemoglobin Concent 32 g/dL (31-37) 32 g/dL (31-37) Red Cell Distribution Width 15.6 % (11.5-14.5) 15.3 % (11.5-14.5) Platelet Count 650 x10^3/uL (140-400) 609 x10^3/uL (140-400) Neutrophils (%) (Auto) 58 % (31-73) 62 % (31-73) Lymphocytes (%) (Auto) 30 % (24-48) 26 % (24-48) Monocytes (%) (Auto) 10 % (0-9) 10 % (0-9) Eosinophils (%) (Auto) 2 % (0-3) 1 % (0-3) Basophils (%) (Auto) 1 % (0-3) 1 % (0-3) Neutrophils # (Auto) 8.5 x10^3uL (1.8-7.7) 7.6 x10^3uL (1.8-7.7) Lymphocytes # (Auto) 4.3 x10^3/uL (1.0-4.8) 3.2 x10^3/uL (1.0-4.8) Monocytes # (Auto) 1.5 x10^3/uL (0.0-1.1) 1.2 x10^3/uL (0.0-1.1) Eosinophils # (Auto) 0.2 x10^3/uL (0.0-0.7) 0.1 x10^3/uL (0.0-0.7) Basophils # (Auto) 0.2 x10^3/uL (0.0-0.2) 0.1 x10^3/uL (0.0-0.2) Sodium Level 140 mmol/L (136-145) 141 mmol/L (136-145) Potassium Level 4.0 mmol/L (3.5-5.1) 3.7 mmol/L (3.5-5.1) Chloride Level 103 mmol/L (98-107) 103 mmol/L (98-107) Carbon Dioxide Level 27 mmol/L (21-32) 24 mmol/L (21-32) Anion Gap 10 (6-14) 14 (6-14) Blood Urea Nitrogen 12 mg/dL (8-26) 11 mg/dL (8-26) Creatinine 1.0 mg/dL (0.7-1.3) 1.0 mg/dL (0.7-1.3) Estimated GFR (Cockcroft-Gault) 84.1 84.1 BUN/Creatinine Ratio 12 (6-20) 11 (6-20) Glucose Level 95 mg/dL (70-99) 95 mg/dL (70-99) Calcium Level 9.1 mg/dL (8.5-10.1) 8.9 mg/dL (8.5-10.1) Total Bilirubin 0.7 mg/dL (0.2-1.0) 0.7 mg/dL (0.2-1.0) Aspartate Amino Transf (AST/SGOT) 30 U/L (15-37) 30 U/L (15-37) Alanine Aminotransferase (ALT/SGPT) 38 U/L (16-63) 37 U/L (16-63) Alkaline Phosphatase 132 U/L (46-116) 122 U/L (46-116) Total Protein 8.6 g/dL (6.4-8.2) 8.0 g/dL (6.4-8.2) Albumin 2.9 g/dL (3.4-5.0) 2.7 g/dL (3.4-5.0) Albumin/Globulin Ratio 0.5 (1.0-1.7) 0.5 (1.0-1.7) Lipase 113 U/L (73-393) Lactic Acid Level 0.6 mmol/L (0.4-2.0) Nasal Screen MRSA (PCR) Negative (Negative) Prothrombin Time 15.0 SEC (11.7-14.0) Prothromb Time International Ratio 1.2 (0.8-1.1) Activated Partial Thromboplast Time 35 SEC (24-38) Microbiology 02/15/19 Blood Culture - Preliminary, Resulted NO GROWTH AFTER 1 DAY Medications Current Medications Acetaminophen/ Hydrocodone Bitart (Lortab 5/325) 1 tab 1X ONCE PO Last administered on 02/15/19at 20:26; Start 02/15/19 at 20:00; Stop 02/15/19 at 20:19; Status DC Sodium Chloride 1,000 ml @ 1,000 mls/hr 1X ONCE IV Last administered on 02/15/19at 20:57; Start 02/15/19 at 20:45; Stop 02/15/19 at 21:44; Status DC Iohexol (Omnipaque 300 Mg/ml) 75 ml 1X ONCE IV Last administered on 02/15/19at 21:13; Start 02/15/19 at 21:00; Stop 02/15/19 at 21:01; Status DC Ondansetron HCl (Zofran) 4 mg PRN Q8HRS PRN IV NAUSEA/VOMITING; Start 02/15/19 at 22:30; Stop 02/16/19 at 22:29; Status DC Fentanyl Citrate (Fentanyl 2ml Vial) 50 mcg PRN Q3HRS PRN IV PAIN Last administered on 02/16/19at 22:28; Start 02/15/19 at 22:30; Stop 02/16/19 at 22:29; Status DC Sodium Chloride 1,000 ml @ 125 mls/hr Q8H IV Last administered on 02/16/19at 17:23; Start 02/15/19 at 22:30; Stop 02/16/19 at 22:29; Status DC Piperacillin Sod/ Tazobactam Sod 3.375 gm/Sodium Chloride 50 ml @ 100 mls/hr 1X ONCE IV Last administered on 02/15/19at 23:53; Start 02/15/19 at 22:30; Stop 02/15/19 at 22:59; Status DC Midazolam HCl (Versed) 2 mg STK-MED ONCE .ROUTE ; Start 02/16/19 at 10:03; Stop 02/16/19 at 10:04; Status DC Fentanyl Citrate (Fentanyl 2ml Vial) 100 mcg STK-MED ONCE .ROUTE ; Start 02/16/19 at 10:03; Stop 02/16/19 at 10:04; Status DC Flumazenil (Romazicon) 0.5 mg STK-MED ONCE IV ; Start 02/16/19 at 10:03; Stop 02/16/19 at 10:04; Status DC Naloxone HCl (Narcan) 0.4 mg STK-MED ONCE .ROUTE ; Start 02/16/19 at 10:03; Stop 02/16/19 at 10:04; Status DC Lidocaine/Sodium Bicarbonate (Buffered Lidocaine 1%) 3 ml STK-MED ONCE .ROUTE ; Start 02/16/19 at 10:09; Stop 02/16/19 at 10:10; Status DC Lidocaine/Sodium Bicarbonate (Buffered Lidocaine 1%) 3 ml 1X ONCE IJ Last administered on 02/16/19at 10:30; Start 02/16/19 at 10:30; Stop 02/16/19 at 10:31; Status DC Midazolam HCl (Versed) 2 mg 1X ONCE IV Last administered on 02/16/19at 10:30; Start 02/16/19 at 10:30; Stop 02/16/19 at 10:31; Status DC Fentanyl Citrate (Fentanyl 2ml Vial) 100 mcg 1X ONCE IV Last administered on 02/16/19at 10:30; Start 02/16/19 at 10:30; Stop 02/16/19 at 10:31; Status DC Midazolam HCl (Versed) 2 mg STK-MED ONCE .ROUTE ; Start 02/16/19 at 10:56; Stop 02/16/19 at 10:57; Status DC Fentanyl Citrate (Fentanyl 2ml Vial) 100 mcg STK-MED ONCE .ROUTE ; Start 02/16/19 at 11:03; Stop 02/16/19 at 11:04; Status DC Docusate Sodium (Colace) 100 mg BID PO Last administered on 02/16/19 21:10; Start 02/16/19 at 21:00 Lactobacillus Rhamnosus (Culturelle) 1 cap BID PO Last administered on 02/16 21:10; Start 02/16/19 at 21:00 Buspirone HCl (Buspar) 30 mg BID PO Last administered on 02/16/19 21:11; Start 02/16/19 at 21:00 Fluoxetine HCl (PROzac) 40 mg QHS PO Last administered on 02/16/19 21:11; Start 02/16/19 at 21:00 Haloperidol (Haldol) 10 mg DAILY PO Last administered on 02/16/19 17:24; Start 02/16/19 at 16:30 Lisinopril (Prinivil) 2.5 mg DAILY PO Last administered on 02/16/19 17:23; Start 02/16/19 at 16:30 Mirtazapine (Remeron) 45 mg QHS PO Last administered on 02/16/19 21:11; Start 02/16/19 at 21:00 Olanzapine (ZyPREXA) 15 mg QHS PO Last administered on 02/16/19 21:10; Start 02/16/19 at 21:00 Pantoprazole Sodium (Protonix) 40 mg DAILYAC PO Last administered on 02/17/19 06:00; Start 02/16/19 at 16:30 Piperacillin Sod/ Tazobactam Sod 3.375 gm/Sodium Chloride 50 ml @ 100 mls/hr Q6HRS IV Last administered on 02/17/19at 06:00; Start 02/16/19 at 18:00 Fentanyl Citrate (Fentanyl 2ml Vial) 50 mcg PRN Q3HRS PRN IV PAIN Last administered on 02/17/19at 06:01; Start 02/17/19 at 02:45 Active Scripts Active Culturelle (Lactobacillus Rhamnosus Gg) 1 Each Cap.sprink 1 Cap PO BID 30 Days Colace (Docusate Sodium) 100 Mg Capsule 100 Mg PO BID 10 Days Amox Tr-K Clv 875-125 Mg Tab (Amoxicillin/Potassium Clav) 1 Each Tablet 1 Tab PO BID 10 Days Reported Buspirone Hcl 30 Mg Tablet 1 Tab PO BID Protonix (Pantoprazole Sodium) 20 Mg Tablet.dr 2 Tab PO DAILY Zantac (Ranitidine Hcl) 150 Mg Tablet 1 Tab PO HS Tums (Calcium Carbonate) 200 Mg Tab.chew 200 Mg PO TID Zyprexa (Olanzapine) 15 Mg Tablet 1 Tab PO QHS Remeron (Mirtazapine) 15 Mg Tablet 3 Tab PO QHS Lisinopril 2.5 Mg Tablet 1 Tab PO DAILY Haloperidol 10 Mg Tablet 10 Mg PO DAILY Prozac (Fluoxetine Hcl) 40 Mg Capsule 1 Cap PO HS Metformin Hcl 500 Mg Tablet 500 Mg PO BIDWMEALS Vitals/I & O Vital Sign - Last 24 Hours 02/16/19 02/16/19 02/16/19 02/16/19 09:15 10:30 10:49 11:00 Pulse 91 91 Resp 19 14 18 14 B/P (MAP) 126/79 (95) Pulse Ox 96 95 O2 Delivery Room Air Nasal Cannula Nasal Cannula O2 Flow Rate 2.0 2.0 02/16/19 02/16/19 02/16/19 02/16/19 11:05 11:13 11:20 11:30 Pulse 88 90 90 88 Resp 12 14 12 18 B/P (MAP) 137/74 (95) 127/81 (96) 133/85 (101) Pulse Ox 96 93 93 96 O2 Delivery Nasal Cannula Room Air Room Air Room Air O2 Flow Rate 2.0 02/16/19 02/16/19 02/16/19 02/16/19 11:45 12:00 12:15 12:30 Pulse 86 86 102 90 Resp 18 18 18 18 B/P (MAP) 136/87 (103) 138/87 (104) 142/88 (106) 125/86 (99) Pulse Ox 95 95 95 94 O2 Delivery Room Air Room Air Room Air Room Air 02/16/19 02/16/19 02/16/19 02/16/19 12:32 13:00 14:00 15:54 Pulse 88 90 Resp 20 18 18 20 B/P (MAP) 135/85 (102) 128/80 (96) Pulse Ox 94 94 95 96 O2 Delivery Room Air Room Air Room Air Room Air 02/16/19 02/16/19 02/16/19 02/16/19 16:30 17:23 19:00 19:33 Temp 99.0 99.0 Pulse 90 96 Resp 20 18 B/P (MAP) 128/80 114/75 (88) Pulse Ox 94 94 O2 Delivery Room Air Room Air 02/16/19 02/16/19 02/16/19 02/16/19 20:00 20:03 22:28 23:00 Temp 99.2 99.2 Pulse 94 Resp 18 B/P (MAP) 133/76 (95) Pulse Ox 94 94 94 O2 Delivery Room Air Room Air Room Air Room Air 02/17/19 02/17/19 02/17/19 02/17/19 03:00 03:09 03:39 06:01 Temp 98.0 98.0 Pulse 65 Resp 18 B/P (MAP) 121/81 (94) Pulse Ox 97 94 94 94 O2 Delivery Room Air Room Air Room Air 02/17/19 02/17/19 02/17/19 07:00 07:15 07:15 Temp 98.4 98.4 Pulse 95 Resp 20 B/P (MAP) 123/76 (92) Pulse Ox 98 O2 Delivery Room Air Room Air Room Air Intake and Output 02/16/19 02/16/19 02/17/19 15:00 23:00 07:00 Intake Total 0 ml 300 ml Output Total 90 ml 75 ml 510 ml Balance -90 ml 225 ml -510 ml ROSALVA AVELAR MD February 17, 2019 08:20
--- NOTE | 2019-02-17 08:24 | PDOC ---
[employer]ER 02/17/19 0824: SURGICAL PROGRESS NOTE Subjective pain at drain site tolerating diet Vital Signs Vital Signs Date Time Temp Pulse Resp B/P (MAP) Pulse Ox O2 Delivery O2 Flow Rate FiO2 02/17/19 07:15 Room Air 02/17/19 07:00 98.4 95 20 123/76 (92) 98 98.4 02/16/19 11:05 2.0 I&O Intake and Output 02/17/19 07:00 Intake Total 300 ml Output Total 675 ml Balance -375 ml Intake Oral 300 ml Output Drainage Total 675 ml General: Alert, Oriented X3, Cooperative, No acute distress Abdomen: Soft, Other (drain biliuos ) Labs Laboratory Tests Test 02/15/19 20:05 02/15/19 23:24 02/16/19 00:35 02/16/19 08:12 White Blood Count 14.7 x10^3/uL (4.0-11.0) 12.2 x10^3/uL (4.0-11.0) Red Blood Count 3.19 x10^6/uL (4.30-5.70) 2.93 x10^6/uL (4.30-5.70) Hemoglobin 9.6 g/dL (13.0-17.5) 8.8 g/dL (13.0-17.5) Hematocrit 30.2 % (39.0-53.0) 27.7 % (39.0-53.0) Mean Corpuscular Volume 95 fL (79-100) 95 fL (79-100) Mean Corpuscular Hemoglobin 30 pg (25-35) 30 pg (25-35) Mean Corpuscular Hemoglobin Concent 32 g/dL (31-37) 32 g/dL (31-37) Red Cell Distribution Width 15.6 % (11.5-14.5) 15.3 % (11.5-14.5) Platelet Count 650 x10^3/uL (140-400) 609 x10^3/uL (140-400) Neutrophils (%) (Auto) 58 % (31-73) 62 % (31-73) Lymphocytes (%) (Auto) 30 % (24-48) 26 % (24-48) Monocytes (%) (Auto) 10 % (0-9) 10 % (0-9) Eosinophils (%) (Auto) 2 % (0-3) 1 % (0-3) Basophils (%) (Auto) 1 % (0-3) 1 % (0-3) Neutrophils # (Auto) 8.5 x10^3uL (1.8-7.7) 7.6 x10^3uL (1.8-7.7) Lymphocytes # (Auto) 4.3 x10^3/uL (1.0-4.8) 3.2 x10^3/uL (1.0-4.8) Monocytes # (Auto) 1.5 x10^3/uL (0.0-1.1) 1.2 x10^3/uL (0.0-1.1) Eosinophils # (Auto) 0.2 x10^3/uL (0.0-0.7) 0.1 x10^3/uL (0.0-0.7) Basophils # (Auto) 0.2 x10^3/uL (0.0-0.2) 0.1 x10^3/uL (0.0-0.2) Sodium Level 140 mmol/L (136-145) 141 mmol/L (136-145) Potassium Level 4.0 mmol/L (3.5-5.1) 3.7 mmol/L (3.5-5.1) Chloride Level 103 mmol/L (98-107) 103 mmol/L (98-107) Carbon Dioxide Level 27 mmol/L (21-32) 24 mmol/L (21-32) Anion Gap 10 (6-14) 14 (6-14) Blood Urea Nitrogen 12 mg/dL (8-26) 11 mg/dL (8-26) Creatinine 1.0 mg/dL (0.7-1.3) 1.0 mg/dL (0.7-1.3) Estimated GFR (Cockcroft-Gault) 84.1 84.1 BUN/Creatinine Ratio 12 (6-20) 11 (6-20) Glucose Level 95 mg/dL (70-99) 95 mg/dL (70-99) Calcium Level 9.1 mg/dL (8.5-10.1) 8.9 mg/dL (8.5-10.1) Total Bilirubin 0.7 mg/dL (0.2-1.0) 0.7 mg/dL (0.2-1.0) Aspartate Amino Transf (AST/SGOT) 30 U/L (15-37) 30 U/L (15-37) Alanine Aminotransferase (ALT/SGPT) 38 U/L (16-63) 37 U/L (16-63) Alkaline Phosphatase 132 U/L (46-116) 122 U/L (46-116) Total Protein 8.6 g/dL (6.4-8.2) 8.0 g/dL (6.4-8.2) Albumin 2.9 g/dL (3.4-5.0) 2.7 g/dL (3.4-5.0) Albumin/Globulin Ratio 0.5 (1.0-1.7) 0.5 (1.0-1.7) Lipase 113 U/L (73-393) Lactic Acid Level 0.6 mmol/L (0.4-2.0) Nasal Screen MRSA (PCR) Negative (Negative) Prothrombin Time 15.0 SEC (11.7-14.0) Prothromb Time International Ratio 1.2 (0.8-1.1) Activated Partial Thromboplast Time 35 SEC (24-38) Problem List Problems Medical Problems: (1) Abdominal pain Status: Acute Assessment/Plan improved WBC continue drain JANA VITAL MD 02/17/19 1405: SURGICAL PROGRESS NOTE Assessment/Plan Pt seen and examined. Agree with Ms. House's note Pt with c/o diffuse mild abd pain, garth PO abd soft, mild diffuse TTP, VIKY bile tinged cont drain SCAR HOUSE APRN February 17, 2019 08:24 JANA VITAL MD February 17, 2019 14:05
[2019-02-17] MEDS: HALOPERIDOL 5 MG TABLET. PO SCH (09:11)
[2019-02-17] MEDS: LISINOPRIL 5 MG TABLET. PO SCH (09:12)
[2019-02-17] MEDS: DOCUSATE SODIUM 100 MG CAPSULE. PO SCH ×2 (09:12→21:24)
[2019-02-17] MEDS: LACTOBACILLUS RHAMNOSUS GG 1 CAPSULE. PO SCH ×2 (09:12→21:25)
--- NOTE | 2019-02-17 09:20 | NUR ---
JOSEF VIKY drain flushed with 10cc NS.
[2019-02-17] MEDS: busPIRone 10 MG TABLET. PO SCH ×2 (10:16→21:25)
[2019-02-17 10:28] LABS: BASO % 0 % (0-3); EOS # 0.3 x10^3/uL (0.0-0.7); EOS % 2 % (0-3); HEMATOCRIT 26.5 % (39.0-53.0); HEMOGLOBIN 8.5 g/dL (13.0-17.5); LYMPH # 2.9 x10^3/uL (1.0-4.8); LYMPH % 24 % (24-48); MEAN CORPUSCULAR HEMOGLOBIN 31 pg (25-35); MEAN CORPUSCULAR HGB CONC 32 g/dL (31-37); MEAN CORPUSCULAR VOLUME 95 fL (79-100); MONO # 1.4 x10^3/uL (0.0-1.1); MONO % 12 % (0-9); NEUT # 7.3 x10^3uL (1.8-7.7); NEUT % 62 % (31-73); PLATELET COUNT 577 x10^3/uL (140-400); RED CELL DISTRIBUTION WIDTH 15.2 % (11.5-14.5); WHITE BLOOD COUNT 11.9 x10^3/uL (4.0-11.0)
[2019-02-17 10:43] LABS: ALBUMIN 2.6 g/dL (3.4-5.0); ALBUMIN/GLOBULIN RATIO 0.5 (1.0-1.7); CALCIUM 8.5 mg/dL (8.5-10.1); CREATININE 1.1 mg/dL (0.7-1.3); GFR 75.3; POTASSIUM 4.1 mmol/L (3.5-5.1); TOTAL BILIRUBIN 0.5 mg/dL (0.2-1.0); TOTAL PROTEIN 7.9 g/dL (6.4-8.2)
[2019-02-17 11:00] VITALS: BP 126/78
--- NOTE | 2019-02-17 11:04 | PDOC ---
Infectious Disease Note Vital Sign Vital Signs Vital Signs Date Time Temp Pulse Resp B/P (MAP) Pulse Ox O2 Delivery O2 Flow Rate FiO2 02/17/19 10:16 Room Air 02/17/19 09:12 95 123/76 02/17/19 07:00 98.4 20 98 98.4 02/16/19 11:05 2.0 Labs Lab Laboratory Tests Test 02/17/19 10:07 White Blood Count 11.9 x10^3/uL (4.0-11.0) Red Blood Count 2.80 x10^6/uL (4.30-5.70) Hemoglobin 8.5 g/dL (13.0-17.5) Hematocrit 26.5 % (39.0-53.0) Mean Corpuscular Volume 95 fL (79-100) Mean Corpuscular Hemoglobin 31 pg (25-35) Mean Corpuscular Hemoglobin Concent 32 g/dL (31-37) Red Cell Distribution Width 15.2 % (11.5-14.5) Platelet Count 577 x10^3/uL (140-400) Neutrophils (%) (Auto) 62 % (31-73) Lymphocytes (%) (Auto) 24 % (24-48) Monocytes (%) (Auto) 12 % (0-9) Eosinophils (%) (Auto) 2 % (0-3) Basophils (%) (Auto) 0 % (0-3) Neutrophils # (Auto) 7.3 x10^3uL (1.8-7.7) Lymphocytes # (Auto) 2.9 x10^3/uL (1.0-4.8) Monocytes # (Auto) 1.4 x10^3/uL (0.0-1.1) Eosinophils # (Auto) 0.3 x10^3/uL (0.0-0.7) Basophils # (Auto) 0.0 x10^3/uL (0.0-0.2) Micro Microbiology 02/15/19 Blood Culture - Preliminary, Resulted NO GROWTH AFTER 1 DAY Objective Assessment Fluid collection in gb fossa--remove current drain--in sub q space drain removed S/p Perc drain placement into GB fossa 02/16 Leukocytosis, improving H/o Biliary leak - s/p stent and stone extraction S/P cholecystectomy and CBDE 01/29 Obesity. . Plan Plan of Care Restarted Zosyn 02/16 F/u labs and cults D/w Dr. Odell Thank you # [phone] BEAN WESTFALL MD February 17, 2019 11:04
[2019-02-17 15:00] VITALS: BP 120/72
[2019-02-17 19:00] VITALS: BP 116/78
[2019-02-17] MEDS: OLANZapine 5 MG TABLET PO SCH (21:25)
[2019-02-17] MEDS: FLUoxetine HCL 20 MG CAPSULE PO SCH (21:25)
[2019-02-17] MEDS: MIRTAZAPINE 15 MG TABLET PO SCH (21:25)
[2019-02-17 23:00] VITALS: BP 122/76
[2019-02-18] MEDS: PIPERACILLIN/TAZOBACTAM 3.375 GM in IV NORMAL SALINE 50ML 50 ML IV SCH ×4 (00:25→19:53)
[2019-02-18] MEDS: fentaNYL PF VIAL 100 MCG/2 ML VIAL IV PRN ×8 (00:25→23:03)
--- NOTE | 2019-02-18 02:02 | CONS ---
DATE OF CONSULTATION: 02/17/2019 INFECTIOUS DISEASE CONSULTATION The patient's room is 426. REQUESTING PHYSICIAN: Dr. Odell REASON FOR CONSULTATION: Postoperative infection. HISTORY OF PRESENT ILLNESS: The patient is a 38-year-old gentleman who is a prisoner, who underwent laparoscopic cholecystectomy on 30 of January, then subsequently underwent an ERCP with sphincterotomy on 08 of February and was discharged on 10 of February with drain in place. He was discharged home to the facility, continued to have some discomfort associated with the drain. He returned to [facility] on the with ongoing pain, had a fluid attenuation in the gallbladder fossa, it had increased. At previous exam, the surgical drain had been retracted with the tip in the subcutaneous tissues. A drain was subsequently removed. He was taken to Interventional Radiology on 16 of February, underwent CT-guided drain placement into the gallbladder fossa and bilious output was noted. These cultures were obtained. I was consulted and I placed him on Zosyn. Currently, he is lying in bed, still has some pain associated with the drain. He did have some chills, but no gross fevers prior to coming in, no sweats. He has been eating okay, passes urine, also has been having bowel movements. Denies any rashes or itches. PAST MEDICAL HISTORY: Positive for gastroesophageal reflux disease, schizophrenia. Also, positive for obesity. Positive for MRSA screen in the past. PAST SURGICAL HISTORY: Positive for cholecystectomy as mentioned above on 21 of January, then ERCP with sphincterotomy and stone extraction on the 07 of February. REVIEW OF SYSTEMS: Otherwise negative. ALLERGIES: LISTED CODEINE AND LITHIUM. SOCIAL HISTORY: He is a prisoner. Denies any alcohol, no tobacco. Has a history of working in construction. FAMILY HISTORY: Reportedly positive for diabetes. CURRENT MEDICATIONS: Include Zosyn, BuSpar, Colace, Prozac, Haldol, lactobacillus, Prinivil and Remeron. PHYSICAL EXAMINATION: VITAL SIGNS: He is afebrile, temperature 98.4, pulse 95, respirations 20, blood pressure 123/76, satting 98% on room air. CONSTITUTIONAL: He is sitting upright in bed. He is cooperative. He is in no acute distress. He is morbidly obese. HEENT: Pupils are equal to light and reactive with normal conjunctivae. Oral cavity, pharynx is clear. NECK: Supple, no JVD. LUNGS: Clear to auscultation bilaterally. HEART: S1, S2, without gross murmur. ABDOMEN: Obese. Positive bowel sounds. VIKY is in place. He has some little tenderness, no guarding. EXTREMITIES: Without clubbing, cyanosis or gross edema. SKIN: Warm to touch without rash, has tattoo. NEUROLOGIC: He is nonfocal. Affect is appropriate. LABORATORY VALUES: White count was 14.7 on arrival, currently is 11.9; hemoglobin 8.5; platelets of 577; neutrophils 62; lymphs 24; monos 12. Glucose 124. Normal liver function study tests, although his alk phos was 132 on arrival. MRSA screen negative on the . RADIOLOGY: Reviewed in history of present illness. IMPRESSION: 1. The fluid collection in gallbladder fossa with a drain was in the subcutaneous space, subsequently has been removed and replaced with a percutaneous drain. 2. Leukocytosis, is improving. 3. History of a biliary leak, status post stent placement and stone extraction. 4. Status post cholecystectomy. 5. Obesity. RECOMMENDATIONS: Again, I instituted Zosyn yesterday. We will follow up labs and cultures. This was discussed with Dr. Odell. Thank you for allowing me to participate in this patient's care. If you have any questions, please do not hesitate to contact me. BEAN WESTFALL MD DR: LISA/jony JOB#: [id number] / [id number]
[2019-02-18] MEDS ORDERED: PROCHLORPERAZINE 10 MG/2 ML VIAL. IV PRN (02:15)
[2019-02-18 03:00] VITALS: BP 136/81
[2019-02-18] MEDS: PANTOPRAZOLE 40 MG TABLET.DR. PO SCH (06:23)
[2019-02-18 07:00] VITALS: BP 114/61
--- NOTE | 2019-02-18 08:24 | PDOC ---
PROGRESS NOTES Chief Complaint Chief Complaint A/P: Abdominal pain - s/p lap bonita complicated by bile leak last month. Surgery consulted. VIKY drain to be removed and replaced per IR Anemia - likely 2/2 recent infection, surgery, will check iron stores Leukocytosis - meets SIRS criteria with possible infectious source in abdomen. Will consult surgery and consult ID GERD - PPI Schizophrenia - will cont home medications FEN - NPO PPX - SCDs FULL CODE Inpatient for abdominal pain, surgical site pain, likely 2 midnights History of Present Illness History of Present Illness 38-year-old male presents to ER via retirement transport for complaints of ongoing abdominal pain following a laparoscopic cholecystectomy on 01/30/19 and per his records had an ERCP with sphincterotomy on 02/08. Patient was discharged from the hospital on 02/10/19 and patient states he has had abdominal pain since then. Patient states he had concerns as his VIKY drain was not holding suction so he was brought to the ER for evaluation. Patient reports he has been eating denies any nausea or vomiting. Pt reports he has had bowel movements since being discharged. Has leukocytosis, anemia. Normal labs otherwise. Afebrile, but tachycardia and tachypnea CT concerning for fluid, hematoma vs biloma, etc. VIKY drain retracted on CT. Went to IR 02/16/19 to have drain placed with no adverse events. Seen by ID - on zosyn WBC count came down, good drainage. Having BM. Has some pain on standing, but otherwise ok. A bit short of breath this morning. Cont on zosyn. No culture data Plan: Antibiotics, f/u cultures, monitor drain output IS bedside. D/c planning I have consulted ID for antibiotic recs Vitals Vitals Vital Signs Date Time Temp Pulse Resp B/P (MAP) Pulse Ox O2 Delivery O2 Flow Rate FiO2 02/18/19 06:24 16 Room Air 02/18/19 03:00 98.7 90 136/81 (99) 96 98.7 Physical Exam General: Alert, Oriented X3, Cooperative, No acute distress Heart: Regular rate, Normal S1, Normal S2 Lungs: Clear Abdomen: Soft, Other (drain biliuos ) Extremities: No clubbing, No cyanosis, No edema, Normal pulses, No tenderness/swelling Skin: No rashes, No breakdown, No significant lesion Labs LABS Laboratory Tests Test 02/17/19 10:07 White Blood Count 11.9 x10^3/uL (4.0-11.0) Red Blood Count 2.80 x10^6/uL (4.30-5.70) Hemoglobin 8.5 g/dL (13.0-17.5) Hematocrit 26.5 % (39.0-53.0) Mean Corpuscular Volume 95 fL (79-100) Mean Corpuscular Hemoglobin 31 pg (25-35) Mean Corpuscular Hemoglobin Concent 32 g/dL (31-37) Red Cell Distribution Width 15.2 % (11.5-14.5) Platelet Count 577 x10^3/uL (140-400) Neutrophils (%) (Auto) 62 % (31-73) Lymphocytes (%) (Auto) 24 % (24-48) Monocytes (%) (Auto) 12 % (0-9) Eosinophils (%) (Auto) 2 % (0-3) Basophils (%) (Auto) 0 % (0-3) Neutrophils # (Auto) 7.3 x10^3uL (1.8-7.7) Lymphocytes # (Auto) 2.9 x10^3/uL (1.0-4.8) Monocytes # (Auto) 1.4 x10^3/uL (0.0-1.1) Eosinophils # (Auto) 0.3 x10^3/uL (0.0-0.7) Basophils # (Auto) 0.0 x10^3/uL (0.0-0.2) Sodium Level 138 mmol/L (136-145) Potassium Level 4.1 mmol/L (3.5-5.1) Chloride Level 104 mmol/L (98-107) Carbon Dioxide Level 24 mmol/L (21-32) Anion Gap 10 (6-14) Blood Urea Nitrogen 10 mg/dL (8-26) Creatinine 1.1 mg/dL (0.7-1.3) Estimated GFR (Cockcroft-Gault) 75.3 BUN/Creatinine Ratio 9 (6-20) Glucose Level 124 mg/dL (70-99) Calcium Level 8.5 mg/dL (8.5-10.1) Iron Level 22 ug/dL (65-175) Total Iron Binding Capacity 269 ug/dL (250-450) Iron Saturation 8 % (15-34) Total Bilirubin 0.5 mg/dL (0.2-1.0) Aspartate Amino Transf (AST/SGOT) 22 U/L (15-37) Alanine Aminotransferase (ALT/SGPT) 31 U/L (16-63) Alkaline Phosphatase 107 U/L (46-116) Total Protein 7.9 g/dL (6.4-8.2) Albumin 2.6 g/dL (3.4-5.0) Albumin/Globulin Ratio 0.5 (1.0-1.7) Assessment and Plan Assessmemt and Plan Problems Medical Problems: (1) Abdominal pain Status: Acute Comment Review of Relevant I have reviewed the following items gustavo (where applicable) has been applied. Labs Laboratory Tests Test 02/17/19 10:07 White Blood Count 11.9 x10^3/uL (4.0-11.0) Red Blood Count 2.80 x10^6/uL (4.30-5.70) Hemoglobin 8.5 g/dL (13.0-17.5) Hematocrit 26.5 % (39.0-53.0) Mean Corpuscular Volume 95 fL (79-100) Mean Corpuscular Hemoglobin 31 pg (25-35) Mean Corpuscular Hemoglobin Concent 32 g/dL (31-37) Red Cell Distribution Width 15.2 % (11.5-14.5) Platelet Count 577 x10^3/uL (140-400) Neutrophils (%) (Auto) 62 % (31-73) Lymphocytes (%) (Auto) 24 % (24-48) Monocytes (%) (Auto) 12 % (0-9) Eosinophils (%) (Auto) 2 % (0-3) Basophils (%) (Auto) 0 % (0-3) Neutrophils # (Auto) 7.3 x10^3uL (1.8-7.7) Lymphocytes # (Auto) 2.9 x10^3/uL (1.0-4.8) Monocytes # (Auto) 1.4 x10^3/uL (0.0-1.1) Eosinophils # (Auto) 0.3 x10^3/uL (0.0-0.7) Basophils # (Auto) 0.0 x10^3/uL (0.0-0.2) Sodium Level 138 mmol/L (136-145) Potassium Level 4.1 mmol/L (3.5-5.1) Chloride Level 104 mmol/L (98-107) Carbon Dioxide Level 24 mmol/L (21-32) Anion Gap 10 (6-14) Blood Urea Nitrogen 10 mg/dL (8-26) Creatinine 1.1 mg/dL (0.7-1.3) Estimated GFR (Cockcroft-Gault) 75.3 BUN/Creatinine Ratio 9 (6-20) Glucose Level 124 mg/dL (70-99) Calcium Level 8.5 mg/dL (8.5-10.1) Iron Level 22 ug/dL (65-175) Total Iron Binding Capacity 269 ug/dL (250-450) Iron Saturation 8 % (15-34) Total Bilirubin 0.5 mg/dL (0.2-1.0) Aspartate Amino Transf (AST/SGOT) 22 U/L (15-37) Alanine Aminotransferase (ALT/SGPT) 31 U/L (16-63) Alkaline Phosphatase 107 U/L (46-116) Total Protein 7.9 g/dL (6.4-8.2) Albumin 2.6 g/dL (3.4-5.0) Albumin/Globulin Ratio 0.5 (1.0-1.7) Laboratory Tests Test 02/17/19 10:07 White Blood Count 11.9 x10^3/uL (4.0-11.0) Red Blood Count 2.80 x10^6/uL (4.30-5.70) Hemoglobin 8.5 g/dL (13.0-17.5) Hematocrit 26.5 % (39.0-53.0) Mean Corpuscular Volume 95 fL (79-100) Mean Corpuscular Hemoglobin 31 pg (25-35) Mean Corpuscular Hemoglobin Concent 32 g/dL (31-37) Red Cell Distribution Width 15.2 % (11.5-14.5) Platelet Count 577 x10^3/uL (140-400) Neutrophils (%) (Auto) 62 % (31-73) Lymphocytes (%) (Auto) 24 % (24-48) Monocytes (%) (Auto) 12 % (0-9) Eosinophils (%) (Auto) 2 % (0-3) Basophils (%) (Auto) 0 % (0-3) Neutrophils # (Auto) 7.3 x10^3uL (1.8-7.7) Lymphocytes # (Auto) 2.9 x10^3/uL (1.0-4.8) Monocytes # (Auto) 1.4 x10^3/uL (0.0-1.1) Eosinophils # (Auto) 0.3 x10^3/uL (0.0-0.7) Basophils # (Auto) 0.0 x10^3/uL (0.0-0.2) Sodium Level 138 mmol/L (136-145) Potassium Level 4.1 mmol/L (3.5-5.1) Chloride Level 104 mmol/L (98-107) Carbon Dioxide Level 24 mmol/L (21-32) Anion Gap 10 (6-14) Blood Urea Nitrogen 10 mg/dL (8-26) Creatinine 1.1 mg/dL (0.7-1.3) Estimated GFR (Cockcroft-Gault) 75.3 BUN/Creatinine Ratio 9 (6-20) Glucose Level 124 mg/dL (70-99) Calcium Level 8.5 mg/dL (8.5-10.1) Iron Level 22 ug/dL (65-175) Total Iron Binding Capacity 269 ug/dL (250-450) Iron Saturation 8 % (15-34) Total Bilirubin 0.5 mg/dL (0.2-1.0) Aspartate Amino Transf (AST/SGOT) 22 U/L (15-37) Alanine Aminotransferase (ALT/SGPT) 31 U/L (16-63) Alkaline Phosphatase 107 U/L (46-116) Total Protein 7.9 g/dL (6.4-8.2) Albumin 2.6 g/dL (3.4-5.0) Albumin/Globulin Ratio 0.5 (1.0-1.7) Microbiology 02/15/19 Blood Culture - Preliminary, Resulted NO GROWTH AFTER 2 DAYS 02/16/19 Anaerobic/Aerobic Culture, Resulted Pending 02/16/19 Anaerobic Culture Result 1 (ZOILA), Resulted Pending 02/16/19 Aerobic Culture, Resulted Pending 02/16/19 Aerobic Culture Result 1 (ZOILA), Resulted Pending 02/16/19 Gram Stain - Final, Resulted 02/16/19 Gram Stain Result 1 (ZOILA) - Final, Resulted 02/16/19 Gram Stain Result 2 (ZOILA) - Final, Resulted Medications Current Medications Acetaminophen/ Hydrocodone Bitart (Lortab 5/325) 1 tab 1X ONCE PO Last administered on 02/15/19at 20:26; Start 02/15/19 at 20:00; Stop 02/15/19 at 20:19; Status DC Sodium Chloride 1,000 ml @ 1,000 mls/hr 1X ONCE IV Last administered on 02/15/19at 20:57; Start 02/15/19 at 20:45; Stop 02/15/19 at 21:44; Status DC Iohexol (Omnipaque 300 Mg/ml) 75 ml 1X ONCE IV Last administered on 02/15/19at 21:13; Start 02/15/19 at 21:00; Stop 02/15/19 at 21:01; Status DC Ondansetron HCl (Zofran) 4 mg PRN Q8HRS PRN IV NAUSEA/VOMITING; Start 02/15/19 at 22:30; Stop 02/16/19 at 22:29; Status DC Fentanyl Citrate (Fentanyl 2ml Vial) 50 mcg PRN Q3HRS PRN IV PAIN Last administered on 02/16/19at 22:28; Start 02/15/19 at 22:30; Stop 02/16/19 at 22:29; Status DC Sodium Chloride 1,000 ml @ 125 mls/hr Q8H IV Last administered on 02/16/19at 17:23; Start 02/15/19 at 22:30; Stop 02/16/19 at 22:29; Status DC Piperacillin Sod/ Tazobactam Sod 3.375 gm/Sodium Chloride 50 ml @ 100 mls/hr 1X ONCE IV Last administered on 02/15/19at 23:53; Start 02/15/19 at 22:30; Stop 02/15/19 at 22:59; Status DC Midazolam HCl (Versed) 2 mg STK-MED ONCE .ROUTE ; Start 02/16/19 at 10:03; Stop 02/16/19 at 10:04; Status DC Fentanyl Citrate (Fentanyl 2ml Vial) 100 mcg STK-MED ONCE .ROUTE ; Start 02/16/19 at 10:03; Stop 02/16/19 at 10:04; Status DC Flumazenil (Romazicon) 0.5 mg STK-MED ONCE IV ; Start 02/16/19 at 10:03; Stop 02/16/19 at 10:04; Status DC Naloxone HCl (Narcan) 0.4 mg STK-MED ONCE .ROUTE ; Start 02/16/19 at 10:03; Stop 02/16/19 at 10:04; Status DC Lidocaine/Sodium Bicarbonate (Buffered Lidocaine 1%) 3 ml STK-MED ONCE .ROUTE ; Start 02/16/19 at 10:09; Stop 02/16/19 at 10:10; Status DC Lidocaine/Sodium Bicarbonate (Buffered Lidocaine 1%) 3 ml 1X ONCE IJ Last administered on 02/16/19at 10:30; Start 02/16/19 at 10:30; Stop 02/16/19 at 10:31; Status DC Midazolam HCl (Versed) 2 mg 1X ONCE IV Last administered on 02/16/19at 10:30; Start 02/16/19 at 10:30; Stop 02/16/19 at 10:31; Status DC Fentanyl Citrate (Fentanyl 2ml Vial) 100 mcg 1X ONCE IV Last administered on 02/16/19at 10:30; Start 02/16/19 at 10:30; Stop 02/16/19 at 10:31; Status DC Midazolam HCl (Versed) 2 mg STK-MED ONCE .ROUTE ; Start 02/16/19 at 10:56; Stop 02/16/19 at 10:57; Status DC Fentanyl Citrate (Fentanyl 2ml Vial) 100 mcg STK-MED ONCE .ROUTE ; Start 02/16/19 at 11:03; Stop 02/16/19 at 11:04; Status DC Docusate Sodium (Colace) 100 mg BID PO Last administered on 02/17/19at 21:24; Start 02/16/19 at 21:00 Lactobacillus Rhamnosus (Culturelle) 1 cap BID PO Last administered on 02/17/19 t 21:25; Start 02/16/19 at 21:00 Buspirone HCl (Buspar) 30 mg BID PO Last administered on 02/17/19at 21:25; Start 02/16/19 at 21:00 Fluoxetine HCl (PROzac) 40 mg QHS PO Last administered on 02/17/19at 21:25; Start 02/16/19 at 21:00 Haloperidol (Haldol) 10 mg DAILY PO Last administered on 02/17/19 09:11; Start 02/16/19 at 16:30 Lisinopril (Prinivil) 2.5 mg DAILY PO Last administered on 02/17/19 09:12; Start 02/16/19 at 16:30 Mirtazapine (Remeron) 45 mg QHS PO Last administered on 02/17/19 21:25; Start 02/16/19 at 21:00 Olanzapine (ZyPREXA) 15 mg QHS PO Last administered on 02/17/19 21:25; Start 02/16/19 at 21:00 Pantoprazole Sodium (Protonix) 40 mg DAILYAC PO Last administered on 02/18/19 06:23; Start 02/16/19 at 16:30 Piperacillin Sod/ Tazobactam Sod 3.375 gm/Sodium Chloride 50 ml @ 100 mls/hr Q6HRS IV Last administered on 02/18/19 06:23; Start 02/16/19 at 18:00 Fentanyl Citrate (Fentanyl 2ml Vial) 50 mcg PRN Q3HRS PRN IV PAIN Last administered on 02/18/19 06:24; Start 02/17/19 at 02:45 Prochlorperazine Edisylate (Compazine) 10 mg PRN Q6HRS PRN IV NAUSEA/VOMITING; Start 02/18/19 at 02:15 Active Scripts Active Culturelle (Lactobacillus Rhamnosus Gg) 1 Each Cap.sprink 1 Cap PO BID 30 Days Colace (Docusate Sodium) 100 Mg Capsule 100 Mg PO BID 10 Days Amox Tr-K Clv 875-125 Mg Tab (Amoxicillin/Potassium Clav) 1 Each Tablet 1 Tab PO BID 10 Days Reported Buspirone Hcl 30 Mg Tablet 1 Tab PO BID Protonix (Pantoprazole Sodium) 20 Mg Tablet.dr 2 Tab PO DAILY Zantac (Ranitidine Hcl) 150 Mg Tablet 1 Tab PO HS Tums (Calcium Carbonate) 200 Mg Tab.chew 200 Mg PO TID Zyprexa (Olanzapine) 15 Mg Tablet 1 Tab PO QHS Remeron (Mirtazapine) 15 Mg Tablet 3 Tab PO QHS Lisinopril 2.5 Mg Tablet 1 Tab PO DAILY Haloperidol 10 Mg Tablet 10 Mg PO DAILY Prozac (Fluoxetine Hcl) 40 Mg Capsule 1 Cap PO HS Metformin Hcl 500 Mg Tablet 500 Mg PO BIDWMEALS Vitals/I & O Vital Sign - Last 24 Hours 02/17/19 02/17/19 02/17/19 02/17/19 09:12 09:14 11:00 12:08 Temp 98.6 98.6 Pulse 95 91 Resp 20 B/P (MAP) 123/76 126/78 (94) Pulse Ox 96 O2 Delivery Room Air Room Air Room Air 02/17/19 02/17/19 02/17/19 02/17/19 15:00 15:19 18:26 19:00 Temp 98.6 99.9 98.6 99.9 Pulse 96 95 Resp 20 18 B/P (MAP) 120/72 (88) 116/78 (91) Pulse Ox 95 93 O2 Delivery Room Air Room Air Room Air Room Air 02/17/19 02/17/19 02/17/19 02/18/19 20:00 21:26 23:00 00:25 Temp 99.1 99.1 Pulse 91 Resp 16 18 16 B/P (MAP) 122/76 (91) Pulse Ox 96 O2 Delivery Room Air Room Air Room Air Room Air 02/18/19 02/18/19 02/18/19 02/18/19 00:55 03:00 03:27 06:24 Temp 98.7 98.7 Pulse 90 Resp 16 18 16 16 B/P (MAP) 136/81 (99) Pulse Ox 96 O2 Delivery Room Air Room Air Room Air Room Air Intake and Output 02/17/19 02/17/19 02/18/19 15:00 23:00 07:00 Intake Total 240 ml 460 ml Output Total 640 ml 1260 ml 715 ml Balance -400 ml -800 ml -715 ml ROSALVA AVELAR MD February 18, 2019 08:24
--- NOTE | 2019-02-18 09:34 | PDOC ---
SURGICAL PROGRESS NOTE Subjective Anil for Dr Godoy adequate pain control taking diet Vital Signs Vital Signs Date Time Temp Pulse Resp B/P (MAP) Pulse Ox O2 Delivery O2 Flow Rate FiO2 02/18/19 07:00 98.7 89 18 114/61 (78) 96 Room Air 98.7 I&O Intake and Output 02/18/19 07:00 Intake Total 700 ml Output Total 2615 ml Balance -1915 ml Intake Oral 700 ml Output Urine Total 1650 ml Drainage Total 965 ml PATIENT HAS A ULLOA: No General: Alert, No acute distress Abdomen: Soft, Other (obese, drain with bilious output) Labs Laboratory Tests Test 02/17/19 10:07 White Blood Count 11.9 x10^3/uL (4.0-11.0) Red Blood Count 2.80 x10^6/uL (4.30-5.70) Hemoglobin 8.5 g/dL (13.0-17.5) Hematocrit 26.5 % (39.0-53.0) Mean Corpuscular Volume 95 fL (79-100) Mean Corpuscular Hemoglobin 31 pg (25-35) Mean Corpuscular Hemoglobin Concent 32 g/dL (31-37) Red Cell Distribution Width 15.2 % (11.5-14.5) Platelet Count 577 x10^3/uL (140-400) Neutrophils (%) (Auto) 62 % (31-73) Lymphocytes (%) (Auto) 24 % (24-48) Monocytes (%) (Auto) 12 % (0-9) Eosinophils (%) (Auto) 2 % (0-3) Basophils (%) (Auto) 0 % (0-3) Neutrophils # (Auto) 7.3 x10^3uL (1.8-7.7) Lymphocytes # (Auto) 2.9 x10^3/uL (1.0-4.8) Monocytes # (Auto) 1.4 x10^3/uL (0.0-1.1) Eosinophils # (Auto) 0.3 x10^3/uL (0.0-0.7) Basophils # (Auto) 0.0 x10^3/uL (0.0-0.2) Sodium Level 138 mmol/L (136-145) Potassium Level 4.1 mmol/L (3.5-5.1) Chloride Level 104 mmol/L (98-107) Carbon Dioxide Level 24 mmol/L (21-32) Anion Gap 10 (6-14) Blood Urea Nitrogen 10 mg/dL (8-26) Creatinine 1.1 mg/dL (0.7-1.3) Estimated GFR (Cockcroft-Gault) 75.3 BUN/Creatinine Ratio 9 (6-20) Glucose Level 124 mg/dL (70-99) Calcium Level 8.5 mg/dL (8.5-10.1) Iron Level 22 ug/dL (65-175) Total Iron Binding Capacity 269 ug/dL (250-450) Iron Saturation 8 % (15-34) Total Bilirubin 0.5 mg/dL (0.2-1.0) Aspartate Amino Transf (AST/SGOT) 22 U/L (15-37) Alanine Aminotransferase (ALT/SGPT) 31 U/L (16-63) Alkaline Phosphatase 107 U/L (46-116) Total Protein 7.9 g/dL (6.4-8.2) Albumin 2.6 g/dL (3.4-5.0) Albumin/Globulin Ratio 0.5 (1.0-1.7) Laboratory Tests Test 02/17/19 10:07 White Blood Count 11.9 x10^3/uL (4.0-11.0) Red Blood Count 2.80 x10^6/uL (4.30-5.70) Hemoglobin 8.5 g/dL (13.0-17.5) Hematocrit 26.5 % (39.0-53.0) Mean Corpuscular Volume 95 fL (79-100) Mean Corpuscular Hemoglobin 31 pg (25-35) Mean Corpuscular Hemoglobin Concent 32 g/dL (31-37) Red Cell Distribution Width 15.2 % (11.5-14.5) Platelet Count 577 x10^3/uL (140-400) Neutrophils (%) (Auto) 62 % (31-73) Lymphocytes (%) (Auto) 24 % (24-48) Monocytes (%) (Auto) 12 % (0-9) Eosinophils (%) (Auto) 2 % (0-3) Basophils (%) (Auto) 0 % (0-3) Neutrophils # (Auto) 7.3 x10^3uL (1.8-7.7) Lymphocytes # (Auto) 2.9 x10^3/uL (1.0-4.8) Monocytes # (Auto) 1.4 x10^3/uL (0.0-1.1) Eosinophils # (Auto) 0.3 x10^3/uL (0.0-0.7) Basophils # (Auto) 0.0 x10^3/uL (0.0-0.2) Sodium Level 138 mmol/L (136-145) Potassium Level 4.1 mmol/L (3.5-5.1) Chloride Level 104 mmol/L (98-107) Carbon Dioxide Level 24 mmol/L (21-32) Anion Gap 10 (6-14) Blood Urea Nitrogen 10 mg/dL (8-26) Creatinine 1.1 mg/dL (0.7-1.3) Estimated GFR (Cockcroft-Gault) 75.3 BUN/Creatinine Ratio 9 (6-20) Glucose Level 124 mg/dL (70-99) Calcium Level 8.5 mg/dL (8.5-10.1) Iron Level 22 ug/dL (65-175) Total Iron Binding Capacity 269 ug/dL (250-450) Iron Saturation 8 % (15-34) Total Bilirubin 0.5 mg/dL (0.2-1.0) Aspartate Amino Transf (AST/SGOT) 22 U/L (15-37) Alanine Aminotransferase (ALT/SGPT) 31 U/L (16-63) Alkaline Phosphatase 107 U/L (46-116) Total Protein 7.9 g/dL (6.4-8.2) Albumin 2.6 g/dL (3.4-5.0) Albumin/Globulin Ratio 0.5 (1.0-1.7) Problem List Problems Medical Problems: (1) Abdominal pain Status: Acute Assessment/Plan stable continue supportive care follow drain output YOSEPH STEPHENS MD February 18, 2019 09:34
[2019-02-18] MEDS: LACTOBACILLUS RHAMNOSUS GG 1 CAPSULE. PO SCH ×2 (10:07→22:39)
[2019-02-18] MEDS: DOCUSATE SODIUM 100 MG CAPSULE. PO SCH ×2 (10:07→22:39)
[2019-02-18] MEDS: busPIRone 10 MG TABLET. PO SCH ×2 (10:08→22:39)
[2019-02-18] MEDS: LISINOPRIL 5 MG TABLET. PO SCH (10:08)
[2019-02-18] MEDS: HALOPERIDOL 5 MG TABLET. PO SCH (10:09)
[2019-02-18 11:00] VITALS: BP 107/63
--- NOTE | 2019-02-18 14:18 | PDOC ---
Infectious Disease Note Subjective Subjective vomited last night Comfortable now Appetite good No F/C/S/abd pain ROS ROS per HPI Vital Sign Vital Signs Vital Signs Date Time Temp Pulse Resp B/P (MAP) Pulse Ox O2 Delivery O2 Flow Rate FiO2 02/18/19 13:17 Room Air 02/18/19 11:05 96 2.0 02/18/19 11:00 98.3 83 18 107/63 (78) 98.3 Physical Exam PHYSICAL EXAM GENERAL Propped up in bed, alert, NAD HEENT: Pupils are equal to light and reactive with normal conjunctivae. Oral cavity, pharynx is clear. NECK: Supple, no JVD. LUNGS: Clear to auscultation bilaterally. HEART: S1, S2, without gross murmur. ABDOMEN: Obese, soft, NT, VIKY is in place. EXTREMITIES: Without clubbing, cyanosis or gross edema. SKIN: Warm to touch without rash, has tattoo. NEUROLOGIC: He is nonfocal. Affect is appropriate. PIV Labs Micro 02/15/19 Blood Culture - Preliminary, Resulted NO GROWTH AFTER 2 DAYS Abdominal fluid GRAM STAIN RES 2 Final Yeast Objective Assessment Gallbladder fossa fluid collection, s/p VIKY replacement 02/16. + yeast Leukocytosis, improving. History of a biliary leak, status post stent placement and stone extraction. Status post cholecystectomy. Obesity. Plan Plan of Care Continue Zosyn and add micafungin f/u cultures Monitor WBC count and temp Monitor VIKY output Pt seen and examined Agree with above PEDRO WEEMS APRN February 18, 2019 14:18 RICCO VALDEZ MD February 18, 2019 15:12
[2019-02-18 15:00] VITALS: BP 122/68
[2019-02-18] MEDS: MICAFUNGIN 100 MG in IV DEXTROSE 5% 100ML 100 ML IV SCH (16:32)
[2019-02-18 19:00] VITALS: BP 122/77
[2019-02-18] MEDS: FLUoxetine HCL 20 MG CAPSULE PO SCH (22:39)
[2019-02-18] MEDS: OLANZapine 5 MG TABLET PO SCH (22:39)
[2019-02-18] MEDS: MIRTAZAPINE 15 MG TABLET PO SCH (22:39)
[2019-02-18 23:00] VITALS: BP 118/75
[2019-02-19] MEDS: PIPERACILLIN/TAZOBACTAM 3.375 GM in IV NORMAL SALINE 50ML 50 ML IV SCH ×4 (01:11→18:30)
[2019-02-19] MEDS: fentaNYL PF VIAL 100 MCG/2 ML VIAL IV PRN ×6 (02:45→21:44)
[2019-02-19 03:00] VITALS: BP 149/84
[2019-02-19 07:00] VITALS: BP 124/81
--- NOTE | 2019-02-19 08:35 | PDOC ---
PROGRESS NOTES Chief Complaint Chief Complaint A/P: Abdominal pain - s/p lap bonita complicated by bile leak last month. Surgery consulted. VIKY drain to be removed and replaced per IR Anemia - likely 2/2 recent infection, surgery, will check iron stores Leukocytosis - meets SIRS criteria with possible infectious source in abdomen. Will consult surgery and consult ID GERD - PPI Schizophrenia - will cont home medications Yeast abdominal culture - micafungin per ID FEN - NPO PPX - SCDs FULL CODE Inpatient for abdominal pain, surgical site pain, likely 2 midnights History of Present Illness History of Present Illness 38-year-old male presents to ER via [facility] for complaints of ongoing abdominal pain following a laparoscopic cholecystectomy on 01/30/19 and per his records had an ERCP with sphincterotomy on 02/08. Patient was discharged from the hospital on 02/10/19 and patient states he has had abdominal pain since then. Patient states he had concerns as his VIKY drain was not holding suction so he was brought to the ER for evaluation. Patient reports he has been eating denies any nausea or vomiting. Pt reports he has had bowel movements since being discharged. Has leukocytosis, anemia. Normal labs otherwise. Afebrile, but tachycardia and tachypnea CT concerning for fluid, hematoma vs biloma, etc. VIKY drain retracted on CT. Went to IR 02/16/19 to have drain placed with no adverse events. Seen by ID - on zosyn WBC count came down, good drainage. Having BM. Has some pain on standing, but otherwise ok. A bit short of breath this morning. Cont on zosyn. Culture data shows yeast on abdominal fluid gram stain, started on micafungin now. Plan: Antibiotics, f/u cultures, monitor drain output - started antifungals - d/w ID IS bedside. D/c planning I have consulted ID for antibiotic recs Vitals Vitals Vital Signs Date Time Temp Pulse Resp B/P (MAP) Pulse Ox O2 Delivery O2 Flow Rate FiO2 02/19/19 07:00 99.3 89 18 124/81 (95) 97 Room Air 99.3 02/18/19 11:05 2.0 Physical Exam Physical Exam GENERAL Propped up in bed, alert, NAD HEENT: Pupils are equal to light and reactive with normal conjunctivae. Oral cavity, pharynx is clear. NECK: Supple, no JVD. LUNGS: Clear to auscultation bilaterally. HEART: S1, S2, without gross murmur. ABDOMEN: Obese, soft, NT, VIKY is in place. EXTREMITIES: Without clubbing, cyanosis or gross edema. SKIN: Warm to touch without rash, has tattoo. NEUROLOGIC: He is nonfocal. Affect is appropriate. PIV General: Alert, No acute distress Heart: Regular rate, Normal S1, Normal S2 Lungs: Clear Abdomen: Soft, Other (obese, drain with bilious output) Extremities: No clubbing, No cyanosis, No edema, Normal pulses, No tenderness/swelling Skin: No rashes, No breakdown, No significant lesion Assessment and Plan Assessmemt and Plan Problems Medical Problems: (1) Abdominal pain Status: Acute Comment Review of Relevant I have reviewed the following items gustavo (where applicable) has been applied. Labs Laboratory Tests Test 02/17/19 10:07 White Blood Count 11.9 x10^3/uL (4.0-11.0) Red Blood Count 2.80 x10^6/uL (4.30-5.70) Hemoglobin 8.5 g/dL (13.0-17.5) Hematocrit 26.5 % (39.0-53.0) Mean Corpuscular Volume 95 fL (79-100) Mean Corpuscular Hemoglobin 31 pg (25-35) Mean Corpuscular Hemoglobin Concent 32 g/dL (31-37) Red Cell Distribution Width 15.2 % (11.5-14.5) Platelet Count 577 x10^3/uL (140-400) Neutrophils (%) (Auto) 62 % (31-73) Lymphocytes (%) (Auto) 24 % (24-48) Monocytes (%) (Auto) 12 % (0-9) Eosinophils (%) (Auto) 2 % (0-3) Basophils (%) (Auto) 0 % (0-3) Neutrophils # (Auto) 7.3 x10^3uL (1.8-7.7) Lymphocytes # (Auto) 2.9 x10^3/uL (1.0-4.8) Monocytes # (Auto) 1.4 x10^3/uL (0.0-1.1) Eosinophils # (Auto) 0.3 x10^3/uL (0.0-0.7) Basophils # (Auto) 0.0 x10^3/uL (0.0-0.2) Sodium Level 138 mmol/L (136-145) Potassium Level 4.1 mmol/L (3.5-5.1) Chloride Level 104 mmol/L (98-107) Carbon Dioxide Level 24 mmol/L (21-32) Anion Gap 10 (6-14) Blood Urea Nitrogen 10 mg/dL (8-26) Creatinine 1.1 mg/dL (0.7-1.3) Estimated GFR (Cockcroft-Gault) 75.3 BUN/Creatinine Ratio 9 (6-20) Glucose Level 124 mg/dL (70-99) Calcium Level 8.5 mg/dL (8.5-10.1) Iron Level 22 ug/dL (65-175) Total Iron Binding Capacity 269 ug/dL (250-450) Iron Saturation 8 % (15-34) Total Bilirubin 0.5 mg/dL (0.2-1.0) Aspartate Amino Transf (AST/SGOT) 22 U/L (15-37) Alanine Aminotransferase (ALT/SGPT) 31 U/L (16-63) Alkaline Phosphatase 107 U/L (46-116) Total Protein 7.9 g/dL (6.4-8.2) Albumin 2.6 g/dL (3.4-5.0) Albumin/Globulin Ratio 0.5 (1.0-1.7) Microbiology 02/15/19 Blood Culture - Preliminary, Resulted NO GROWTH AFTER 3 DAYS 02/16/19 Anaerobic/Aerobic Culture, Resulted Pending 02/16/19 Anaerobic Culture Result 1 (ZOILA), Resulted Pending 02/16/19 Aerobic Culture, Resulted Pending 02/16/19 Aerobic Culture Result 1 (ZOILA), Resulted Pending 02/16/19 Gram Stain - Final, Resulted 02/16/19 Gram Stain Result 1 (ZOILA) - Final, Resulted 02/16/19 Gram Stain Result 2 (ZOILA) - Final, Resulted Medications Current Medications Acetaminophen/ Hydrocodone Bitart (Lortab 5/325) 1 tab 1X ONCE PO Last administered on 02/15/19at 20:26; Start 02/15/19 at 20:00; Stop 02/15/19 at 20:19; Status DC Sodium Chloride 1,000 ml @ 1,000 mls/hr 1X ONCE IV Last administered on 02/15/19at 20:57; Start 02/15/19 at 20:45; Stop 02/15/19 at 21:44; Status DC Iohexol (Omnipaque 300 Mg/ml) 75 ml 1X ONCE IV Last administered on 02/15/19at 21:13; Start 02/15/19 at 21:00; Stop 02/15/19 at 21:01; Status DC Ondansetron HCl (Zofran) 4 mg PRN Q8HRS PRN IV NAUSEA/VOMITING; Start 02/15/19 at 22:30; Stop 02/16/19 at 22:29; Status DC Fentanyl Citrate (Fentanyl 2ml Vial) 50 mcg PRN Q3HRS PRN IV PAIN Last administered on 02/16/19at 22:28; Start 02/15/19 at 22:30; Stop 02/16/19 at 22:29; Status DC Sodium Chloride 1,000 ml @ 125 mls/hr Q8H IV Last administered on 02/16/19at 17:23; Start 02/15/19 at 22:30; Stop 02/16/19 at 22:29; Status DC Piperacillin Sod/ Tazobactam Sod 3.375 gm/Sodium Chloride 50 ml @ 100 mls/hr 1X ONCE IV Last administered on 02/15/19at 23:53; Start 02/15/19 at 22:30; Stop 02/15/19 at 22:59; Status DC Midazolam HCl (Versed) 2 mg STK-MED ONCE .ROUTE ; Start 02/16/19 at 10:03; Stop 02/16/19 at 10:04; Status DC Fentanyl Citrate (Fentanyl 2ml Vial) 100 mcg STK-MED ONCE .ROUTE ; Start 02/16/19 at 10:03; Stop 02/16/19 at 10:04; Status DC Flumazenil (Romazicon) 0.5 mg STK-MED ONCE IV ; Start 02/16/19 at 10:03; Stop 02/16/19 at 10:04; Status DC Naloxone HCl (Narcan) 0.4 mg STK-MED ONCE .ROUTE ; Start 02/16/19 at 10:03; Stop 02/16/19 at 10:04; Status DC Lidocaine/Sodium Bicarbonate (Buffered Lidocaine 1%) 3 ml STK-MED ONCE .ROUTE ; Start 02/16/19 at 10:09; Stop 02/16/19 at 10:10; Status DC Lidocaine/Sodium Bicarbonate (Buffered Lidocaine 1%) 3 ml 1X ONCE IJ Last administered on 02/16/19 10:30; Start 02/16/19 at 10:30; Stop 02/16/19 at 10:31; Status DC Midazolam HCl (Versed) 2 mg 1X ONCE IV Last administered on 02/16/19 10:30; Start 02/16/19 at 10:30; Stop 02/16/19 at 10:31; Status DC Fentanyl Citrate (Fentanyl 2ml Vial) 100 mcg 1X ONCE IV Last administered on 02/16/19 10:30; Start 02/16/19 at 10:30; Stop 02/16/19 at 10:31; Status DC Midazolam HCl (Versed) 2 mg STK-MED ONCE .ROUTE ; Start 02/16/19 at 10:56; Stop 02/16/19 at 10:57; Status DC Fentanyl Citrate (Fentanyl 2ml Vial) 100 mcg STK-MED ONCE .ROUTE ; Start 02/16/19 at 11:03; Stop 02/16/19 at 11:04; Status DC Docusate Sodium (Colace) 100 mg BID PO Last administered on 02/18/19 22:39; Start 02/16/19 at 21:00 Lactobacillus Rhamnosus (Culturelle) 1 cap BID PO Last administered on 02/18/19 22:39; Start 02/16/19 at 21:00 Buspirone HCl (Buspar) 30 mg BID PO Last administered on 02/18/19 22:39; Start 02/16/19 at 21:00 Fluoxetine HCl (PROzac) 40 mg QHS PO Last administered on 02/18/19 22:39; Start 02/16/19 at 21:00 Haloperidol (Haldol) 10 mg DAILY PO Last administered on 02/18/19 10:09; Start 02/16/19 at 16:30 Lisinopril (Prinivil) 2.5 mg DAILY PO Last administered on 02/18/19 10:08; Start 02/16/19 at 16:30 Mirtazapine (Remeron) 45 mg QHS PO Last administered on 02/18/19 22:39; Start 02/16/19 at 21:00 Olanzapine (ZyPREXA) 15 mg QHS PO Last administered on 02/18/19at 22:39; Start 02/16/19 at 21:00 Pantoprazole Sodium (Protonix) 40 mg DAILYAC PO Last administered on 02/18/19at 06:23; Start 02/16/19 at 16:30 Piperacillin Sod/ Tazobactam Sod 3.375 gm/Sodium Chloride 50 ml @ 100 mls/hr Q6HRS IV Last administered on 02/19/19at 05:55; Start 02/16/19 at 18:00 Fentanyl Citrate (Fentanyl 2ml Vial) 50 mcg PRN Q3HRS PRN IV PAIN Last administered on 02/19/19 05:57; Start 02/17/19 at 02:45 Prochlorperazine Edisylate (Compazine) 10 mg PRN Q6HRS PRN IV NAUSEA/VOMITING; Start 02/18/19 at 02:15 Micafungin Sodium 100 mg/Dextrose 100 ml @ 100 mls/hr Q24H IV Last administered on 02/18/19at 16:32; Start 02/18/19 at 15:00 Active Scripts Active Culturelle (Lactobacillus Rhamnosus Gg) 1 Each Cap.sprink 1 Cap PO BID 30 Days Colace (Docusate Sodium) 100 Mg Capsule 100 Mg PO BID 10 Days Amox Tr-K Clv 875-125 Mg Tab (Amoxicillin/Potassium Clav) 1 Each Tablet 1 Tab PO BID 10 Days Reported Buspirone Hcl 30 Mg Tablet 1 Tab PO BID Protonix (Pantoprazole Sodium) 20 Mg Tablet.dr 2 Tab PO DAILY Zantac (Ranitidine Hcl) 150 Mg Tablet 1 Tab PO HS Tums (Calcium Carbonate) 200 Mg Tab.chew 200 Mg PO TID Zyprexa (Olanzapine) 15 Mg Tablet 1 Tab PO QHS Remeron (Mirtazapine) 15 Mg Tablet 3 Tab PO QHS Lisinopril 2.5 Mg Tablet 1 Tab PO DAILY Haloperidol 10 Mg Tablet 10 Mg PO DAILY Prozac (Fluoxetine Hcl) 40 Mg Capsule 1 Cap PO HS Metformin Hcl 500 Mg Tablet 500 Mg PO BIDWMEALS Vitals/I & O Vital Sign - Last 24 Hours 02/18/19 02/18/19 02/18/19 02/18/19 10:08 10:16 11:00 11:05 Temp 98.3 98.3 Pulse 89 83 Resp 18 B/P (MAP) 114/61 107/63 (78) Pulse Ox 96 96 96 O2 Delivery Room Air Room Air O2 Flow Rate 2.0 2.0 02/18/19 02/18/19 02/18/19 02/18/19 13:17 15:00 16:33 19:00 Temp 98.0 98.9 98.0 98.9 Pulse 89 92 Resp 18 18 B/P (MAP) 122/68 (86) 122/77 (92) Pulse Ox 97 96 O2 Delivery Room Air Room Air Room Air Room Air 02/18/19 02/18/19 02/18/19 02/18/19 19:50 19:53 23:00 23:03 Temp 99.1 99.1 Pulse 94 Resp 20 18 20 B/P (MAP) 118/75 (89) Pulse Ox 94 O2 Delivery Room Air Room Air Room Air Room Air 02/19/19 02/19/19 02/19/19 02/19/19 02:45 03:00 05:57 06:27 Temp 97.9 97.9 Pulse 87 Resp 20 18 20 20 B/P (MAP) 149/84 (105) Pulse Ox 96 O2 Delivery Room Air Room Air Room Air Room Air 02/19/19 07:00 Temp 99.3 99.3 Pulse 89 Resp 18 B/P (MAP) 124/81 (95) Pulse Ox 97 O2 Delivery Room Air Intake and Output 02/18/19 02/18/19 02/19/19 15:00 23:00 07:00 Intake Total 960 ml Output Total 360 ml 1380 ml 520 ml Balance -360 ml -1380 ml 440 ml ROSALVA AVELAR MD February 19, 2019 08:35
[2019-02-19] MEDS: busPIRone 10 MG TABLET. PO SCH ×2 (09:11→21:39)
[2019-02-19] MEDS: HALOPERIDOL 5 MG TABLET. PO SCH (09:11)
[2019-02-19] MEDS: LISINOPRIL 5 MG TABLET. PO SCH (09:12)
[2019-02-19] MEDS: DOCUSATE SODIUM 100 MG CAPSULE. PO SCH ×2 (09:12→21:39)
[2019-02-19] MEDS: PANTOPRAZOLE 40 MG TABLET.DR. PO SCH (09:12)
[2019-02-19] MEDS: LACTOBACILLUS RHAMNOSUS GG 1 CAPSULE. PO SCH ×2 (09:12→21:38)
--- NOTE | 2019-02-19 09:12 | PDOC ---
SURGICAL PROGRESS NOTE Subjective Anil for Dr Godoy no new complaints eating, stooling Vital Signs Vital Signs Date Time Temp Pulse Resp B/P (MAP) Pulse Ox O2 Delivery O2 Flow Rate FiO2 02/19/19 07:00 99.3 89 18 124/81 (95) 97 Room Air 99.3 02/18/19 11:05 2.0 I&O Intake and Output 02/19/19 07:00 Intake Total 960 ml Output Total 2260 ml Balance -1300 ml Intake Oral 960 ml Output Urine Total 1100 ml Drainage Total 1160 ml # Voids 2 lots of drain output PATIENT HAS A ULLOA: No General: Alert, No acute distress Abdomen: Soft, Other (drain with bilious output) Labs Laboratory Tests Test 02/17/19 10:07 White Blood Count 11.9 x10^3/uL (4.0-11.0) Red Blood Count 2.80 x10^6/uL (4.30-5.70) Hemoglobin 8.5 g/dL (13.0-17.5) Hematocrit 26.5 % (39.0-53.0) Mean Corpuscular Volume 95 fL (79-100) Mean Corpuscular Hemoglobin 31 pg (25-35) Mean Corpuscular Hemoglobin Concent 32 g/dL (31-37) Red Cell Distribution Width 15.2 % (11.5-14.5) Platelet Count 577 x10^3/uL (140-400) Neutrophils (%) (Auto) 62 % (31-73) Lymphocytes (%) (Auto) 24 % (24-48) Monocytes (%) (Auto) 12 % (0-9) Eosinophils (%) (Auto) 2 % (0-3) Basophils (%) (Auto) 0 % (0-3) Neutrophils # (Auto) 7.3 x10^3uL (1.8-7.7) Lymphocytes # (Auto) 2.9 x10^3/uL (1.0-4.8) Monocytes # (Auto) 1.4 x10^3/uL (0.0-1.1) Eosinophils # (Auto) 0.3 x10^3/uL (0.0-0.7) Basophils # (Auto) 0.0 x10^3/uL (0.0-0.2) Sodium Level 138 mmol/L (136-145) Potassium Level 4.1 mmol/L (3.5-5.1) Chloride Level 104 mmol/L (98-107) Carbon Dioxide Level 24 mmol/L (21-32) Anion Gap 10 (6-14) Blood Urea Nitrogen 10 mg/dL (8-26) Creatinine 1.1 mg/dL (0.7-1.3) Estimated GFR (Cockcroft-Gault) 75.3 BUN/Creatinine Ratio 9 (6-20) Glucose Level 124 mg/dL (70-99) Calcium Level 8.5 mg/dL (8.5-10.1) Iron Level 22 ug/dL (65-175) Total Iron Binding Capacity 269 ug/dL (250-450) Iron Saturation 8 % (15-34) Total Bilirubin 0.5 mg/dL (0.2-1.0) Aspartate Amino Transf (AST/SGOT) 22 U/L (15-37) Alanine Aminotransferase (ALT/SGPT) 31 U/L (16-63) Alkaline Phosphatase 107 U/L (46-116) Total Protein 7.9 g/dL (6.4-8.2) Albumin 2.6 g/dL (3.4-5.0) Albumin/Globulin Ratio 0.5 (1.0-1.7) Problem List Problems Medical Problems: (1) Abdominal pain Status: Acute Assessment/Plan s/p lap bonita follow drain output may need ERCP for stent YOSEPH STEPHENS MD February 19, 2019 09:12
[2019-02-19 11:00] VITALS: BP 141/83
--- NOTE | 2019-02-19 12:30 | PDOC ---
Infectious Disease Note Subjective Subjective Doing ok, abdomen 'sore' Some chills No fever ROS ROS per HPI Vital Sign Vital Signs Vital Signs Date Time Temp Pulse Resp B/P (MAP) Pulse Ox O2 Delivery O2 Flow Rate FiO2 02/19/19 11:00 98.2 85 18 141/83 (102) 98 Room Air 98.2 02/18/19 11:05 2.0 Physical Exam PHYSICAL EXAM GENERAL Propped up in bed, alert, watching TV HEENT: Normal conjunctivae, Oral cavity, pharynx is clear. NECK: Supple, no JVD. LUNGS: Clear to auscultation bilaterally. HEART: S1, S2, without gross murmur. ABDOMEN: Obese, soft, NT, VIKY is in place. EXTREMITIES: Without clubbing, cyanosis or gross edema. SKIN: Warm to touch without rash, tattoo. NEUROLOGIC: Alert, responding appropriately PIV Labs Micro 02/15/19 Blood Culture - Preliminary, Resulted NO GROWTH AFTER 3 DAYS Abdominal fluid GRAM STAIN RES 2 Final Yeast Objective Assessment Gallbladder fossa fluid collection, s/p VIKY replacement 02/16. + yeast so far Leukocytosis, improving. History of a biliary leak, status post stent placement and stone extraction. Status post cholecystectomy. Obesity. Plan Plan of Care Continue Zosyn and micafungin f/u cultures Monitor WBC count and temp Monitor VIKY output D/w nursing Pt seen and examined D/W ADMISSIONS MANAGER Agree with above A/P PEDRO WEEMS APRN February 19, 2019 12:30 RICCO VALDEZ MD February 19, 2019 15:16
[2019-02-19 15:00] VITALS: BP 147/91
[2019-02-19] MEDS: MICAFUNGIN 100 MG in IV DEXTROSE 5% 100ML 100 ML IV SCH (15:27)
[2019-02-19 19:00] VITALS: BP 133/79
[2019-02-19] MEDS: OLANZapine 5 MG TABLET PO SCH (21:38)
[2019-02-19] MEDS: FLUoxetine HCL 20 MG CAPSULE PO SCH (21:39)
[2019-02-19] MEDS: MIRTAZAPINE 15 MG TABLET PO SCH (21:39)
[2019-02-19 23:00] VITALS: BP 125/76
[2019-02-20] MEDS: PIPERACILLIN/TAZOBACTAM 3.375 GM in IV NORMAL SALINE 50ML 50 ML IV SCH ×4 (00:04→18:36)
[2019-02-20] MEDS: fentaNYL PF VIAL 100 MCG/2 ML VIAL IV PRN ×8 (00:50→22:51)
[2019-02-20 03:00] VITALS: BP 137/74
[2019-02-20 07:00] VITALS: BP 119/77
[2019-02-20] MEDS: PANTOPRAZOLE 40 MG TABLET.DR. PO SCH (07:30)
[2019-02-20] MEDS: DOCUSATE SODIUM 100 MG CAPSULE. PO SCH ×2 (09:00→21:00)
[2019-02-20] MEDS: HALOPERIDOL 5 MG TABLET. PO SCH (09:00)
[2019-02-20] MEDS: LACTOBACILLUS RHAMNOSUS GG 1 CAPSULE. PO SCH ×2 (09:00→21:03)
[2019-02-20] MEDS: busPIRone 10 MG TABLET. PO SCH ×2 (09:00→21:02)
[2019-02-20] MEDS: LISINOPRIL 5 MG TABLET. PO SCH (09:00)
--- NOTE | 2019-02-20 09:23 | PDOC ---
Subjective: Subjective: Please see GI consult from 01/28/19 and following progress notes. 38 y/o male from [facility]. Had cholecystectomy w/ CBDE, then ERCP w/ sphincterotomy and stone extraction. Discharged 02/10/19. Readmitted on 02/15/19 w/ abd pain. CT showed increased fluid attenuation within the GB fossa w/ retracted drain (in subcutaneous fat of anterior abd wall). S/p drain placement w/ IR on 02/16. D/w RN - thinks GI asked to see for another ERCP due to significant output from drain. He tells me his pain isn't getting better. Also says he's having a procedure today but if he's not he'd like to eat. Objective: Vital Signs: Vital Signs Date Time Temp Pulse Resp B/P (MAP) Pulse Ox O2 Delivery O2 Flow Rate FiO2 02/20/19 07:50 Room Air 02/20/19 07:00 97.4 86 18 119/77 (91) 97 97.4 02/19/19 19:00 2.0 Labs: ANAEROBIC-AEROBIC CULTURE PENDING ANAEROBIC RES 1 PENDING AEROBIC CULT PENDING AEROBIC RES 1 PENDING GRAM STAIN Final Final report GRAM STAIN RES 1 Final Comment No white blood cells seen. GRAM STAIN RES 2 Final Yeast Imaging: CT A/P 02/15 IMPRESSION: Fluid attenuation is seen within the gallbladder fossa which has increased since the previous examination. The surgical drain in this region has been retracted. The tip of the drain is within the subcutaneous fat of the anter ior abdominal wall. The fluid within the gallbladder fossa. Represent a hematoma. A bile leak is not excluded. A linear band of decreased attenuation is seen involving the inferior aspect of the right lobe of the liver which may represent a small hepatic laceration. ERCP/ES/balloon dilate/balloon stone extractions 02/07/19 Indication: bile leak on HIDA E, G, D normal to cursory exam. Papilla normal. CBD--stones present. PD not attempted. Generous sphincterotomy done; multiple stones with balloon sweep. Seemed to be another behind scope; could glimpse from papilla. Dilated sphincterotomy to 12mm. Multiple balloon sweeps and attempted basket. Unclear stone passed, but not visualized on last occlusion cholangiogram. Given generous cut, did not place stent. IMP: choledocholithiasis bile leak. REC: Follow clinically, LFT If any question, MRCP. PE: GEN: NAD HEENT: Atraumatic LUNGS: CTAB HEART: RRR ABD: NABS, round/large, tender RUQ around drain (bilious) SKIN: sweaty NEURO/PSYCH: A & O 3 A/P: Abd pain Recent cholecystectomy w/ CBDE, ERCP w/ sphincterotomy/stone extraction Abnormal CT w/ GB fluid collection (+yeast so far) and retracted drain, s/p drain placement w/ IR JACKSON - on PPI -- D/w surgery/Eusebia - ?benefit from stent Dr. Valdes - ask for MRCP - concern for stone. DARREL MUELLER February 20, 2019 09:22
--- NOTE | 2019-02-20 09:36 | PDOC ---
SURGICAL PROGRESS NOTE Subjective still with pain awaiting GI plans Vital Signs Vital Signs Date Time Temp Pulse Resp B/P (MAP) Pulse Ox O2 Delivery O2 Flow Rate FiO2 02/20/19 07:50 Room Air 02/20/19 07:00 97.4 86 18 119/77 (91) 97 97.4 02/19/19 19:00 2.0 I&O Intake and Output 02/20/19 07:00 Intake Total 0 ml Output Total 2345 ml Balance -2345 ml Intake Oral 0 ml Output Urine Total 1750 ml Drainage Total 595 ml General: Alert, Oriented X3, Cooperative, No acute distress Abdomen: Soft, Other (drain bilious ) Problem List Problems Medical Problems: (1) Abdominal pain Status: Acute Assessment/Plan d/w GI, will await their recs continue drain SCAR HOUSE APRN February 20, 2019 09:36
[2019-02-20 11:00] VITALS: BP 123/78
--- NOTE | 2019-02-20 11:46 | PDOC ---
PROGRESS NOTES Chief Complaint Chief Complaint A/P: Abdominal pain - s/p lap bonita complicated by bile leak last month. Surgery consulted. VIKY drain removed and replaced by IR Anemia - likely 2/2 recent infection, surgery, will check iron stores Leukocytosis - meets SIRS criteria with possible infectious source in abdomen. apprec ID and GI GERD - PPI Schizophrenia - will cont home medications Yeast abdominal culture - micafungin per ID FEN - NPO PPX - SCDs FULL CODE Inpatient for abdominal pain, surgical site pain, likely 2 midnights History of Present Illness History of Present Illness 38-year-old male presents to ER via care home transport for complaints of ongoing abdominal pain following a laparoscopic cholecystectomy on 01/30/19 and per his records had an ERCP with sphincterotomy on 02/08. Patient was discharged from the hospital on 02/10/19 and patient states he has had abdominal pain since then. Patient states he had concerns as his VIKY drain was not holding suction so he was brought to the ER for evaluation. Patient reports he has been eating denies any nausea or vomiting. Pt reports he has had bowel movements since being discharged. Has leukocytosis, anemia. Normal labs otherwise. Afebrile, but tachycardia and tachypnea CT concerning for fluid, hematoma vs biloma, etc. VIKY drain retracted on CT. Went to IR 02/16/19 to have drain placed with no adverse events. Seen by ID - on zosyn good drainage. Having BM. pain controlled. Cont on zosyn. Culture data shows yeast on abdominal fluid gram stain, started on micafungin Plan: Antibiotics, f/u cultures, monitor drain output - started antifungals - d/w ID apprec GI and Gen Sx involvement IS bedside. Vitals Vitals Vital Signs Date Time Temp Pulse Resp B/P (MAP) Pulse Ox O2 Delivery O2 Flow Rate FiO2 02/20/19 10:50 Room Air 02/20/19 07:00 97.4 86 18 119/77 (91) 97 97.4 02/19/19 19:00 2.0 Physical Exam Physical Exam GENERAL Propped up in bed, alert, watching TV HEENT: Normal conjunctivae, Oral cavity, pharynx is clear. NECK: Supple, no JVD. LUNGS: Clear to auscultation bilaterally. HEART: S1, S2, without gross murmur. ABDOMEN: Obese, soft, NT, VIKY is in place. EXTREMITIES: Without clubbing, cyanosis or gross edema. SKIN: Warm to touch without rash, tattoo. NEUROLOGIC: Alert, responding appropriately PIV General: Alert, Oriented X3, Cooperative, No acute distress Heart: Regular rate, Normal S1, Normal S2 Lungs: Clear Abdomen: Soft, Other (drain bilious ) Extremities: No clubbing, No cyanosis, No edema, Normal pulses, No tenderness/swelling Skin: No rashes, No breakdown, No significant lesion Assessment and Plan Assessmemt and Plan Problems Medical Problems: (1) Abdominal pain Status: Acute Comment Review of Relevant I have reviewed the following items gustavo (where applicable) has been applied. Labs Microbiology 02/15/19 Blood Culture - Preliminary, Resulted NO GROWTH AFTER 4 DAYS 02/16/19 Anaerobic/Aerobic Culture, Resulted Pending 02/16/19 Anaerobic Culture Result 1 (ZOILA), Resulted Pending 02/16/19 Aerobic Culture, Resulted Pending 02/16/19 Aerobic Culture Result 1 (ZOILA), Resulted Pending 02/16/19 Gram Stain - Final, Resulted 02/16/19 Gram Stain Result 1 (ZOILA) - Final, Resulted 02/16/19 Gram Stain Result 2 (ZOILA) - Final, Resulted Medications Current Medications Acetaminophen/ Hydrocodone Bitart (Lortab 5/325) 1 tab 1X ONCE PO Last administered on 02/15/19at 20:26; Start 02/15/19 at 20:00; Stop 02/15/19 at 20:19; Status DC Sodium Chloride 1,000 ml @ 1,000 mls/hr 1X ONCE IV Last administered on 02/15/19at 20:57; Start 02/15/19 at 20:45; Stop 02/15/19 at 21:44; Status DC Iohexol (Omnipaque 300 Mg/ml) 75 ml 1X ONCE IV Last administered on 02/15/19at 21:13; Start 02/15/19 at 21:00; Stop 02/15/19 at 21:01; Status DC Ondansetron HCl (Zofran) 4 mg PRN Q8HRS PRN IV NAUSEA/VOMITING; Start 02/15/19 at 22:30; Stop 02/16/19 at 22:29; Status DC Fentanyl Citrate (Fentanyl 2ml Vial) 50 mcg PRN Q3HRS PRN IV PAIN Last administered on 02/16/19at 22:28; Start 02/15/19 at 22:30; Stop 02/16/19 at 22:29; Status DC Sodium Chloride 1,000 ml @ 125 mls/hr Q8H IV Last administered on 02/16/19at 17:23; Start 02/15/19 at 22:30; Stop 02/16/19 at 22:29; Status DC Piperacillin Sod/ Tazobactam Sod 3.375 gm/Sodium Chloride 50 ml @ 100 mls/hr 1X ONCE IV Last administered on 02/15/19at 23:53; Start 02/15/19 at 22:30; Stop 02/15/19 at 22:59; Status DC Midazolam HCl (Versed) 2 mg STK-MED ONCE .ROUTE ; Start 02/16/19 at 10:03; Stop 02/16/19 at 10:04; Status DC Fentanyl Citrate (Fentanyl 2ml Vial) 100 mcg STK-MED ONCE .ROUTE ; Start 02/16/19 at 10:03; Stop 02/16/19 at 10:04; Status DC Flumazenil (Romazicon) 0.5 mg STK-MED ONCE IV ; Start 02/16/19 at 10:03; Stop 02/16/19 at 10:04; Status DC Naloxone HCl (Narcan) 0.4 mg STK-MED ONCE .ROUTE ; Start 02/16/19 at 10:03; Stop 02/16/19 at 10:04; Status DC Lidocaine/Sodium Bicarbonate (Buffered Lidocaine 1%) 3 ml STK-MED ONCE .ROUTE ; Start 02/16/19 at 10:09; Stop 02/16/19 at 10:10; Status DC Lidocaine/Sodium Bicarbonate (Buffered Lidocaine 1%) 3 ml 1X ONCE IJ Last administered on 02/16/19at 10:30; Start 02/16/19 at 10:30; Stop 02/16/19 at 10:31; Status DC Midazolam HCl (Versed) 2 mg 1X ONCE IV Last administered on 02/16/19at 10:30; Start 02/16/19 at 10:30; Stop 02/16/19 at 10:31; Status DC Fentanyl Citrate (Fentanyl 2ml Vial) 100 mcg 1X ONCE IV Last administered on 02/16/19at 10:30; Start 02/16/19 at 10:30; Stop 02/16/19 at 10:31; Status DC Midazolam HCl (Versed) 2 mg STK-MED ONCE .ROUTE ; Start 02/16/19 at 10:56; Stop 02/16/19 at 10:57; Status DC Fentanyl Citrate (Fentanyl 2ml Vial) 100 mcg STK-MED ONCE .ROUTE ; Start 02/16/19 at 11:03; Stop 02/16/19 at 11:04; Status DC Docusate Sodium (Colace) 100 mg BID PO Last administered on 02/19/19 21:39; Start 02/16/19 at 21:00 Lactobacillus Rhamnosus (Culturelle) 1 cap BID PO Last administered on 02/19/19 21:38; Start 02/16/19 at 21:00 Buspirone HCl (Buspar) 30 mg BID PO Last administered on 02/19/19 21:39; Start 02/16/19 at 21:00 Fluoxetine HCl (PROzac) 40 mg QHS PO Last administered on 02/19/19 21:39; Start 02/16/19 at 21:00 Haloperidol (Haldol) 10 mg DAILY PO Last administered on 02/19/19 09:11; Start 02/16/19 at 16:30 Lisinopril (Prinivil) 2.5 mg DAILY PO Last administered on 02/19/19 09:12; Start 02/16/19 at 16:30 Mirtazapine (Remeron) 45 mg QHS PO Last administered on 02/19/19 21:39; Start 02/16/19 at 21:00 Olanzapine (ZyPREXA) 15 mg QHS PO Last administered on 02/19/19 21:38; Start 02/16/19 at 21:00 Pantoprazole Sodium (Protonix) 40 mg DAILYAC PO Last administered on 02/19/19 09:12; Start 02/16/19 at 16:30 Piperacillin Sod/ Tazobactam Sod 3.375 gm/Sodium Chloride 50 ml @ 100 mls/hr Q6HRS IV Last administered on 02/20/19 05:57; Start 02/16/19 at 18:00 Fentanyl Citrate (Fentanyl 2ml Vial) 50 mcg PRN Q3HRS PRN IV PAIN Last administered on 02/20/19at 10:50; Start 02/17/19 at 02:45 Prochlorperazine Edisylate (Compazine) 10 mg PRN Q6HRS PRN IV NAUSEA/VOMITING; Start 02/18/19 at 02:15 Micafungin Sodium 100 mg/Dextrose 100 ml @ 100 mls/hr Q24H IV Last administe red on 02/19/19at 15:27; Start 02/18/19 at 15:00 Active Scripts Active Culturelle (Lactobacillus Rhamnosus Gg) 1 Each Cap.sprink 1 Cap PO BID 30 Days Colace (Docusate Sodium) 100 Mg Capsule 100 Mg PO BID 10 Days Amox Tr-K Clv 875-125 Mg Tab (Amoxicillin/Potassium Clav) 1 Each Tablet 1 Tab PO BID 10 Days Reported Buspirone Hcl 30 Mg Tablet 1 Tab PO BID Protonix (Pantoprazole Sodium) 20 Mg Tablet.dr 2 Tab PO DAILY Zantac (Ranitidine Hcl) 150 Mg Tablet 1 Tab PO HS Tums (Calcium Carbonate) 200 Mg Tab.chew 200 Mg PO TID Zyprexa (Olanzapine) 15 Mg Tablet 1 Tab PO QHS Remeron (Mirtazapine) 15 Mg Tablet 3 Tab PO QHS Lisinopril 2.5 Mg Tablet 1 Tab PO DAILY Haloperidol 10 Mg Tablet 10 Mg PO DAILY Prozac (Fluoxetine Hcl) 40 Mg Capsule 1 Cap PO HS Metformin Hcl 500 Mg Tablet 500 Mg PO BIDWMEALS Vitals/I & O Vital Sign - Last 24 Hours 02/19/19 02/19/19 02/19/19 02/19/19 15:00 15:32 18:29 19:00 Temp 98.9 98.9 Pulse 90 Resp 18 B/P (MAP) 147/91 (109) Pulse Ox 98 98 96 O2 Delivery Room Air Room Air Room Air O2 Flow Rate 2.0 2.0 02/19/19 02/19/19 02/19/19 02/19/19 19:00 20:10 21:44 23:00 Temp 98.6 98.6 98.6 98.6 Pulse 91 79 Resp 18 20 18 B/P (MAP) 133/79 (97) 125/76 (92) Pulse Ox 96 97 O2 Delivery Room Air Room Air Room Air Room Air 02/20/19 02/20/19 02/20/19 02/20/19 00:50 03:00 04:18 04:48 Temp 98.5 98.5 Pulse 76 Resp 18 20 20 B/P (MAP) 137/74 (95) Pulse Ox 96 O2 Delivery Room Air Room Air Room Air 02/20/19 02/20/19 02/20/19 02/20/19 07:00 07:35 07:50 10:07 Temp 97.4 97.4 Pulse 86 Resp 18 B/P (MAP) 119/77 (91) Pulse Ox 97 O2 Delivery Room Air Room Air Room Air Room Air 02/20/19 10:50 O2 Delivery Room Air Intake and Output 02/19/19 02/19/19 02/20/19 14:59 22:59 06:59 Intake Total 0 ml Output Total 325 ml 720 ml 1300 ml Balance -325 ml -720 ml -1300 ml SEVEN PETERSON MD February 20, 2019 11:46
--- NOTE | 2019-02-20 11:54 | PDOC ---
Infectious Disease Note Subjective Subjective feeling ok ROS ROS no n/v/d Vital Sign Vital Signs Vital Signs Date Time Temp Pulse Resp B/P (MAP) Pulse Ox O2 Delivery O2 Flow Rate FiO2 02/20/19 10:50 Room Air 02/20/19 07:00 97.4 86 18 119/77 (91) 97 97.4 02/19/19 19:00 2.0 Physical Exam PHYSICAL EXAM GENERAL Propped up in bed, alert, watching TV HEENT: Normal conjunctivae, Oral cavity, pharynx is clear. NECK: Supple, no JVD. LUNGS: Clear to auscultation bilaterally. HEART: S1, S2, without gross murmur. ABDOMEN: Obese, soft, NT, VIKY is in place. EXTREMITIES: Without clubbing, cyanosis or gross edema. SKIN: Warm to touch without rash, tattoo. NEUROLOGIC: Alert, responding appropriately PIV Labs Micro Microbiology 02/15/19 Blood Culture - Preliminary, Resulted NO GROWTH AFTER 4 DAYS 02/16/19 Anaerobic/Aerobic Culture, Resulted Pending 02/16/19 Anaerobic Culture Result 1 (ZOILA), Resulted Pending 02/16/19 Aerobic Culture, Resulted Pending 02/16/19 Aerobic Culture Result 1 (ZOILA), Resulted Pending 02/16/19 Gram Stain - Final, Resulted 02/16/19 Gram Stain Result 1 (ZOILA) - Final, Resulted 02/16/19 Gram Stain Result 2 (ZOILA) - Final, Resulted Objective Assessment Gallbladder fossa fluid collection, s/p VIKY replacement 02/16. + yeast so far Leukocytosis, improving. History of a biliary leak, status post stent placement and stone extraction. Status post cholecystectomy. Obesity. Plan Plan of Care Continue Zosyn and micafungin f/u cultures Monitor WBC count and temp Monitor VIKY output D/w nursing JI VALDEZ MD February 20, 2019 11:54
--- NOTE | 2019-02-20 13:57 | NUR ---
Unable to unscrew VIKY drain for flushing. Clamps used to attempt, attempt unsuccessful.
[2019-02-20] MEDS: MICAFUNGIN 100 MG in IV DEXTROSE 5% 100ML 100 ML IV SCH (14:41)
[2019-02-20 15:00] VITALS: BP 131/78
--- NOTE | 2019-02-20 18:43 | NUR ---
Per the guard, pt is showing aggitation due to not being able to order what he wants from the kitchen and limits on soda and box lunches.
[2019-02-20 19:00] VITALS: BP 130/85
[2019-02-20] MEDS: MIRTAZAPINE 15 MG TABLET PO SCH (21:02)
[2019-02-20] MEDS: OLANZapine 5 MG TABLET PO SCH (21:03)
[2019-02-20] MEDS: FLUoxetine HCL 20 MG CAPSULE PO SCH (21:03)
[2019-02-20 23:00] VITALS: BP 125/78
[2019-02-21] VITALS (11 sets, daily range): BP systolic 114–149; BP diastolic 70–104
[2019-02-21] MEDS: fentaNYL PF VIAL 100 MCG/2 ML VIAL IV PRN ×7 (02:04→22:22)
[2019-02-21] MEDS: PIPERACILLIN/TAZOBACTAM 3.375 GM in IV NORMAL SALINE 50ML 50 ML IV SCH ×5 (05:13→17:58)
[2019-02-21] MEDS: PANTOPRAZOLE 40 MG TABLET.DR. PO SCH ×2 (05:48→13:22)
[2019-02-21] MEDS: busPIRone 10 MG TABLET. PO SCH ×2 (09:00→21:38)
[2019-02-21] MEDS: LACTOBACILLUS RHAMNOSUS GG 1 CAPSULE. PO SCH ×2 (09:00→21:36)
[2019-02-21] MEDS: DOCUSATE SODIUM 100 MG CAPSULE. PO SCH ×2 (09:00→21:00)
--- NOTE | 2019-02-21 09:47 | RAD ---
MRCP, 02/20/2019: History: Abdominal pain, choledocholithiasis, gallbladder fossa abscess with drain placement Imaging was performed in axial and coronal planes utilizing a variety of imaging sequences including T2 weighted, fat suppressed T2 weighted, diffusion weighted and opposed phase gradient echo sequences. 2-D and 3-D MRCP sequences were obtained with and without respiratory gating. 3-D MRCP images were reconstructed Many of the sequences were severely compromised by motion related artifacts. The common bile duct is dilated. It contains a 13 mm rounded filling defect distally compatible with a common duct calculus. There is an additional 4 mm filling defect just superior to this larger filling defect. These findings are best seen on image 15 of series #9 and image 5 of series #11. A blind in the ductal structure appears to represent a large cystic duct remnant. The intrahepatic ducts are not clearly defined due to artifacts. The patient's gallbladder fossa abscess drain and residual heterogeneous fluid in that region are also poorly defined due to artifacts. IMPRESSION: Choledocholithiasis
[2019-02-21] MEDS ORDERED: IV RINGERS,LACTATED 1000ML 1,000 ML IV SCH (09:59)
[2019-02-21] MEDS: IV RINGERS,LACTATED 1000ML 1,000 ML IV SCH ×2 (10:03→23:20)
[2019-02-21] MEDS ORDERED: IOHEXOL 300 MG/ML 100ML VIAL. ONE (10:04)
[2019-02-21] MEDS ORDERED: SUCCINYLCHOLINE 200 MG/10 ML VIAL. ONE (10:15)
[2019-02-21] MEDS ORDERED: ROCURONIUM 50 MG/5 ML VIAL. ONE (10:15)
--- NOTE | 2019-02-21 10:29 | PDOC ---
Infectious Disease Note Subjective Subjective feeling ok ROS ROS no n/v/d/ Vital Sign Vital Signs Vital Signs Date Time Temp Pulse Resp B/P (MAP) Pulse Ox O2 Delivery O2 Flow Rate FiO2 02/21/19 09:48 97.2 85 18 98 97.2 02/21/19 09:48 Room Air 2.0 02/21/19 07:00 114/70 (85) Physical Exam PHYSICAL EXAM GENERAL Propped up in bed, alert, watching TV HEENT: Normal conjunctivae, Oral cavity, pharynx is clear. NECK: Supple, no JVD. LUNGS: Clear to auscultation bilaterally. HEART: S1, S2, without gross murmur. ABDOMEN: Obese, soft, NT, VIKY is in place. EXTREMITIES: Without clubbing, cyanosis or gross edema. SKIN: Warm to touch without rash, tattoo. NEUROLOGIC: Alert, responding appropriately PIV Labs Micro Microbiology 02/15/19 Blood Culture - Preliminary, Resulted NO GROWTH AFTER 4 DAYS 02/16/19 Anaerobic/Aerobic Culture, Resulted Pending 02/16/19 Anaerobic Culture Result 1 (ZOILA), Resulted Pending 02/16/19 Aerobic Culture, Resulted Pending 02/16/19 Aerobic Culture Result 1 (ZOILA), Resulted Pending 02/16/19 Gram Stain - Final, Resulted 02/16/19 Gram Stain Result 1 (ZOILA) - Final, Resulted 02/16/19 Gram Stain Result 2 (ZOILA) - Final, Resulted Objective Assessment Gallbladder fossa fluid collection, s/p VIKY replacement 02/16. + yeast so far Leukocytosis, improving. History of a biliary leak, status post stent placement and stone extraction. Status post cholecystectomy. Obesity. Plan Plan of Care Continue Zosyn and micafungin f/u cultures Monitor WBC count and temp Monitor VIKY output ERCP today D/w nursing JI VALDEZ MD February 21, 2019 10:29
[2019-02-21] MEDS ORDERED: IOHEXOL 350 MG/ML 100 ML VIAL. IV ONE (11:30)
--- NOTE | 2019-02-21 11:39 | PDOC ---
[employer]ER 02/21/19 1139: SURGICAL PROGRESS NOTE Subjective down for ERCP will follow up Vital Signs Vital Signs Date Time Temp Pulse Resp B/P (MAP) Pulse Ox O2 Delivery O2 Flow Rate FiO2 02/21/19 09:48 97.2 85 18 98 97.2 02/21/19 09:48 Room Air 2.0 02/21/19 07:00 114/70 (85) I&O Intake and Output 02/21/19 07:00 Output Total 2825 ml Balance -2825 ml Output Urine Total 1800 ml Drainage Total 1025 ml Problem List Problems Medical Problems: (1) Abdominal pain Status: Acute JANA VITAL MD 02/21/19 1355: SURGICAL PROGRESS NOTE Assessment/Plan Pt seen and examined. Agree with Ms. House's note Pt s/p ERCP with balloon sweep and sphincterotomy reports soreness, but garth PO notes green stool cont drain and supportive care. [employer] February 21, 2019 11:39 JANA VITAL MD February 21, 2019 13:55
--- NOTE | 2019-02-21 11:56 | PDOC4 ---
PROCEDURE Procedure ERCP/ES/ballon dil papilla/balloon stone extractions Indication: persistent bile leak/prior CBD stones Meds: GETA Findings: E, G, D ok on cursory exam. [id number]. Initial cholangiogram stones common duct (suspect in cystic duct last week). Extension of ES; minor bleeding, stopped. Balloon dilated papilla to 12mm x one minute x 2. Initial balloon sweep with small fragments. Occlusion cholangiogram with 2 stone in cystic duct; able eventually to get wire and balloon into cystic duct and remove the stones. Multiple sweeps after with some fragments, but finally nothing. Rahul. well. IMP: Choledocholithiasis, resolved. REC: Clears tonight, advance in AM if OK. Monitor drain output, LFT's.] Thanks. HALEY CLARK MD February 21, 2019 11:56
--- NOTE | 2019-02-21 12:46 | PDOC ---
PROGRESS NOTES Chief Complaint Chief Complaint A/P: Abdominal pain - s/p lap bonita complicated by bile leak last month. Surgery consulted. VIKY drain removed and replaced by IR Anemia - likely 2/2 recent infection, surgery, will check iron stores Leukocytosis - meets SIRS criteria with possible infectious source in abdomen. apprec ID and GI GERD - PPI Schizophrenia - will cont home medications Yeast abdominal culture - micafungin per ID FEN - NPO for ERCP today PPX - SCDs FULL CODE Inpatient for abdominal pain, surgical site pain, likely 2 midnights History of Present Illness History of Present Illness 38-year-old male presents to ER via [facility] for complaints of ongoing abdominal pain following a laparoscopic cholecystectomy on 01/30/19 and per his records had an ERCP with sphincterotomy on 02/08. Patient was discharged from the hospital on 02/10/19 and patient states he has had abdominal pain since then. Patient states he had concerns as his VIKY drain was not holding suction so he was brought to the ER for evaluation. Patient reports he has been eating denies any nausea or vomiting. Pt reports he has had bowel movements since being discharged. Has leukocytosis, anemia. Normal labs otherwise. Afebrile, but tachycardia and tachypnea CT concerning for fluid, hematoma vs biloma, etc. VIKY drain retracted on CT. Went to IR 02/16/19 to have drain placed with no adverse events. Seen by ID - on zosyn no complaints. denies chest pain, sob, nausea vomitting Plan: Antibiotics, f/u cultures, monitor drain output - started antifungals - d/w ID apprec GI and Gen Sx involvement ERCP today. Vitals Vitals Vital Signs Date Time Temp Pulse Resp B/P (MAP) Pulse Ox O2 Delivery O2 Flow Rate FiO2 02/21/19 12:17 107 20 139/78 94 Room Air 02/21/19 12:00 98.1 10 98.1 Physical Exam Physical Exam GENERAL Propped up in bed, alert, watching TV HEENT: Normal conjunctivae, Oral cavity, pharynx is clear. NECK: Supple, no JVD. LUNGS: Clear to auscultation bilaterally. HEART: S1, S2, without gross murmur. ABDOMEN: Obese, soft, NT, VIKY is in place. EXTREMITIES: Without clubbing, cyanosis or gross edema. SKIN: Warm to touch without rash, tattoo. NEUROLOGIC: Alert, responding appropriately PIV General: Alert, Oriented X3, Cooperative, No acute distress Heart: Regular rate, Normal S1, Normal S2 Lungs: Clear Abdomen: Soft, Other (drain bilious ) Extremities: No clubbing, No cyanosis, No edema, Normal pulses, No tenderness/swelling Skin: No rashes, No breakdown, No significant lesion Assessment and Plan Assessmemt and Plan Problems Medical Problems: (1) Abdominal pain Status: Acute Comment Review of Relevant I have reviewed the following items gustavo (where applicable) has been applied. Labs Microbiology 02/15/19 Blood Culture - Final, Complete NO GROWTH AFTER 5 DAYS 02/16/19 Anaerobic/Aerobic Culture, Resulted Pending 02/16/19 Anaerobic Culture Result 1 (ZOILA), Resulted Pending 02/16/19 Aerobic Culture, Resulted Pending 02/16/19 Aerobic Culture Result 1 (ZOILA), Resulted Pending 02/16/19 Gram Stain - Final, Resulted 02/16/19 Gram Stain Result 1 (ZOILA) - Final, Resulted 02/16/19 Gram Stain Result 2 (ZOILA) - Final, Resulted Medications Current Medications Acetaminophen/ Hydrocodone Bitart (Lortab 5/325) 1 tab 1X ONCE PO Last administered on 02/15/19at 20:26; Start 02/15/19 at 20:00; Stop 02/15/19 at 20:19 ; Status DC Sodium Chloride 1,000 ml @ 1,000 mls/hr 1X ONCE IV Last administered on 02/15/19at 20:57; Start 02/15/19 at 20:45; Stop 02/15/19 at 21:44; Status DC Iohexol (Omnipaque 300 Mg/ml) 75 ml 1X ONCE IV Last administered on 02/15/19at 21:13; Start 02/15/19 at 21:00; Stop 02/15/19 at 21:01; Status DC Ondansetron HCl (Zofran) 4 mg PRN Q8HRS PRN IV NAUSEA/VOMITING; Start 02/15/19 at 22:30; Stop 02/16/19 at 22:29; Status DC Fentanyl Citrate (Fentanyl 2ml Vial) 50 mcg PRN Q3HRS PRN IV PAIN Last adm inistered on 02/16/19at 22:28; Start 02/15/19 at 22:30; Stop 02/16/19 at 22:29; Status DC Sodium Chloride 1,000 ml @ 125 mls/hr Q8H IV Last administered on 02/16/19at 17:23; Start 02/15/19 at 22:30; Stop 02/16/19 at 22:29; Status DC Piperacillin Sod/ Tazobactam Sod 3.375 gm/Sodium Chloride 50 ml @ 100 mls/hr 1X ONCE IV Last administered on 02/15/19at 23:53; Start 02/15/19 at 22:30; Stop 02/15/19 at 22:59; Status DC Midazolam HCl (Versed) 2 mg STK-MED ONCE .ROUTE ; Start 02/16/19 at 10:03; Stop 02/16/19 at 10:04; Status DC Fentanyl Citrate (Fentanyl 2ml Vial) 100 mcg STK-MED ONCE .ROUTE ; Start 02/16/19 at 10:03; Stop 02/16/19 at 10:04; Status DC Flumazenil (Romazicon) 0.5 mg STK-MED ONCE IV ; Start 02/16/19 at 10:03; Stop 02/16/19 at 10:04; Status DC Naloxone HCl (Narcan) 0.4 mg STK-MED ONCE .ROUTE ; Start 02/16/19 at 10:03; Stop 02/16/19 at 10:04; Status DC Lidocaine/Sodium Bicarbonate (Buffered Lidocaine 1%) 3 ml STK-MED ONCE .ROUTE ; Start 02/16/19 at 10:09; Stop 02/16/19 at 10:10; Status DC Lidocaine/Sodium Bicarbonate (Buffered Lidocaine 1%) 3 ml 1X ONCE IJ Last administered on 02/16/19at 10:30; Start 02/16/19 at 10:30; Stop 02/16/19 at 10:31; Status DC Midazolam HCl (Versed) 2 mg 1X ONCE IV Last administered on 02/16/19at 10:30; Start 02/16/19 at 10:30; Stop 02/16/19 at 10:31; Status DC Fentanyl Citrate (Fentanyl 2ml Vial) 100 mcg 1X ONCE IV Last administered on at 10:30; Start 02/16/19 at 10:30; Stop 02/16/19 at 10:31; Status DC Midazolam HCl (Versed) 2 mg STK-MED ONCE .ROUTE ; Start 02/16/19 at 10:56; Stop 02/16/19 at 10:57; Status DC Fentanyl Citrate (Fentanyl 2ml Vial) 100 mcg STK-MED ONCE .ROUTE ; Start 02/16/19 at 11:03; Stop 02/16/19 at 11:04; Status DC Docusate Sodium (Colace) 100 mg BID PO Last administered on 02/19/19at 21:39; Start 02/16/19 at 21:00 Lactobacillus Rhamnosus (Culturelle) 1 cap BID PO Last administered on 02/20/19 21:03; Start 02/16/19 at 21:00 Buspirone HCl (Buspar) 30 mg BID PO Last administered on 02/20/19 21:02; Start 02/16/19 at 21:00 Fluoxetine HCl (PROzac) 40 mg QHS PO Last administered on 02/20/19 21:03; Start 02/16/19 at 21:00 Haloperidol (Haldol) 10 mg DAILY PO Last administered on 02/19/19 09:11; Start 02/16/19 at 16:30 Lisinopril (Prinivil) 2.5 mg DAILY PO Last administered on 02/19/19 09:12; Start 02/16/19 at 16:30 Mirtazapine (Remeron) 45 mg QHS PO Last administered on 02/20/19 21:02; Start 02/16/19 at 21:00 Olanzapine (ZyPREXA) 15 mg QHS PO Last administered on 02/20/19 21:03; Start 02/16/19 at 21:00 Pantoprazole Sodium (Protonix) 40 mg DAILYAC PO Last administered on 02/19/19 09:12; Start 02/16/19 at 16:30 Piperacillin Sod/ Tazobactam Sod 3.375 gm/Sodium Chloride 50 ml @ 100 mls/hr Q6HRS IV Last administered on 02/21/19at 05:13; Start 02/16/19 at 18:00 Fentanyl Citrate (Fentanyl 2ml Vial) 50 mcg PRN Q3HRS PRN IV PAIN Last administered on 02/21/19 08:05; Start 02/17/19 at 02:45 Prochlorperazine Edisylate (Compazine) 10 mg PRN Q6HRS PRN IV NAUSEA/VOMITING; Start 02/18/19 at 02:15 Micafungin Sodium 100 mg/Dextrose 100 ml @ 100 mls/hr Q24H IV Last administered on 02/20/19at 14:41; Start 02/18/19 at 15:00 Ringer's Solution 1,000 ml @ 50 mls/hr Q20H IV ; Start 02/21/19 at 09:59; Stop 02/21/19 at 21:58 Ringer's Solution 1,000 ml @ 75 mls/hr [id number] IV Last administered on 02/21/19 at 10:03; Start 02/21/19 at 10:00 Iohexol (Omnipaque 300 Mg/ml) 100 ml STK-MED ONCE .ROUTE ; Start 02/21/19 at 10:04; Stop 02/21/19 at 10:05; Status DC Rocuronium [place] (Zemuron) 50 mg STK-MED ONCE .ROUTE ; Start 02/21/19 at 10:15; Stop 02/21/19 at 10:16; Status DC Succinylcholine Chloride (Anectine) 200 mg STK-MED ONCE .ROUTE ; Start 02/21/19 at 10:15; Stop 02/21/19 at 10:16; Status DC Iohexol (Omnipaque 350 Mg/ml) 100 ml STK-MED ONCE IV Last administered on 02/21/19at 11:30; Start 02/21/19 at 11:30; Stop 02/21/19 at 12:05; Status DC Active Scripts Active Culturelle (Lactobacillus Rhamnosus Gg) 1 Each Cap.sprink 1 Cap PO BID 30 Days Colace (Docusate Sodium) 100 Mg Capsule 100 Mg PO BID 10 Days Amox Tr-K Clv 875-125 Mg Tab (Amoxicillin/Potassium Clav) 1 Each Tablet 1 Tab PO BID 10 Days Reported Buspirone Hcl 30 Mg Tablet 1 Tab PO BID Protonix (Pantoprazole Sodium) 20 Mg Tablet.dr 2 Tab PO DAILY Zantac (Ranitidine Hcl) 150 Mg Tablet 1 Tab PO HS Tums (Calcium Carbonate) 200 Mg Tab.chew 200 Mg PO TID Zyprexa (Olanzapine) 15 Mg Tablet 1 Tab PO QHS Remeron (Mirtazapine) 15 Mg Tablet 3 Tab PO QHS Lisinopril 2.5 Mg Tablet 1 Tab PO DAILY Haloperidol 10 Mg Tablet 10 Mg PO DAILY Prozac (Fluoxetine Hcl) 40 Mg Capsule 1 Cap PO HS Metformin Hcl 500 Mg Tablet 500 Mg PO BIDWMEALS Vitals/I & O Vital Sign - Last 24 Hours 02/20/19 02/20/19 02/20/19 02/20/19 13:51 15:00 16:49 19:00 Temp 98.2 98.9 98.2 98.9 Pulse 86 75 Resp 17 18 B/P (MAP) 131/78 (95) 130/85 (100) Pulse Ox 98 96 O2 Delivery Room Air Room Air Room Air Room Air 02/20/19 02/20/19 02/20/19 02/20/19 19:44 19:55 22:51 23:00 Temp 98.8 98.8 Pulse 74 Resp 16 16 18 B/P (MAP) 125/78 (94) Pulse Ox 96 O2 Delivery Room Air Room Air Room Air Room Air 02/21/19 02/21/19 02/21/19 02/21/19 02:04 03:00 05:14 05:44 Temp 98.9 98.9 Pulse 75 Resp 16 18 16 16 B/P (MAP) 114/70 (85) Pulse Ox 95 O2 Delivery Room Air Room Air Room Air 02/21/19 02/21/19 02/21/19 02/21/19 07:00 07:35 08:05 09:00 Temp 98.0 98.0 Pulse 86 Resp 17 B/P (MAP) 114/70 (85) Pulse Ox 97 O2 Delivery Room Air Room Air Room Air Room Air 02/21/19 02/21/19 02/21/19 02/21/19 09:48 09:48 12:00 12:17 Temp 97.2 98.1 97.2 98.1 Pulse 85 103 107 Resp 18 20 20 B/P (MAP) 145/82 139/78 Pulse Ox 98 98 94 O2 Delivery Room Air Simple Mask Room Air O2 Flow Rate 2.0 10 Intake and Output 02/20/19 02/20/19 02/21/19 15:00 23:00 07:00 Output Total 800 ml 995 ml 1030 ml Balance -800 ml -995 ml -1030 ml SEVEN PETERSON MD February 21, 2019 12:46
--- NOTE | 2019-02-21 12:55 | NUR ---
Pt. back from OP via WC. Pt. aggitiated due to current diet orders of Antelmo dee. Pt. educated on Dr's orders, verbalized understanding.
[2019-02-21] MEDS: HALOPERIDOL 5 MG TABLET. PO SCH (13:11)
[2019-02-21] MEDS: LISINOPRIL 5 MG TABLET. PO SCH (13:11)
--- NOTE | 2019-02-21 13:30 | NUR ---
This nurse taking over to care for pt. Education on clear diet orders was reinforced, pt pleasant at this time, informed pt that diet won't be advance until tomorrow at breakfast time. Pt verbalized understanding. Guards at bedside at time of education.
--- NOTE | 2019-02-21 13:52 | RAD ---
ERCP, 02/21/2019: HISTORY: Choledocholithiasis 15 spot films from an ERCP performed by Dr. Valdes are presented for review. 8 minutes and 35 seconds of fluoroscopy time was utilized. Multiple filling defects are seen in the cystic duct remnant and the common bile duct on these images. Reportedly sphincterotomy was performed with multiple calculi removed. On the last several images there are vague lucencies in the incompletely opacified common duct which are probably due to air. Small residual calculi cannot be excluded. Electronically signed by: Guille Shaw MD (02/21/2019 1:49 PM) [facility]
[2019-02-21] MEDS ORDERED: HYDROmorphone 2 MG/ML VIAL IV ONE (14:00)
[2019-02-21] MEDS: MICAFUNGIN 100 MG in IV DEXTROSE 5% 100ML 100 ML IV SCH (14:14)
--- NOTE | 2019-02-21 21:00 | NUR ---
Docusate non-administered. Pt. has been having loose stools today.
[2019-02-21] MEDS: FLUoxetine HCL 20 MG CAPSULE PO SCH (21:37)
[2019-02-21] MEDS: MIRTAZAPINE 15 MG TABLET PO SCH (21:37)
[2019-02-21] MEDS: OLANZapine 5 MG TABLET PO SCH (21:37)
[2019-02-22] MEDS: PIPERACILLIN/TAZOBACTAM 3.375 GM in IV NORMAL SALINE 50ML 50 ML IV SCH ×4 (00:04→17:21)
[2019-02-22] MEDS: fentaNYL PF VIAL 100 MCG/2 ML VIAL IV PRN ×8 (01:19→23:59)
[2019-02-22 03:35] VITALS: BP 108/69
[2019-02-22] MEDS: PANTOPRAZOLE 40 MG TABLET.DR. PO SCH (05:08)
--- NOTE | 2019-02-22 05:36 | PDOC ---
Infectious Disease Note Subjective Subjective feeling good ROS ROS no n/v/d/ Vital Sign Vital Signs Vital Signs Date Time Temp Pulse Resp B/P (MAP) Pulse Ox O2 Delivery O2 Flow Rate FiO2 02/22/19 05:10 18 Room Air 02/22/19 03:35 98.1 82 108/69 (82) 94 98.1 02/21/19 17:58 10.0 Physical Exam PHYSICAL EXAM GENERAL Propped up in bed, alert, watching TV HEENT: Normal conjunctivae, Oral cavity, pharynx is clear. NECK: Supple, no JVD. LUNGS: Clear to auscultation bilaterally. HEART: S1, S2, without gross murmur. ABDOMEN: Obese, soft, NT, VIKY is in place. EXTREMITIES: Without clubbing, cyanosis or gross edema. SKIN: Warm to touch without rash, tattoo. NEUROLOGIC: Alert, responding appropriately PIV Labs Micro Microbiology 02/15/19 Blood Culture - Preliminary, Resulted NO GROWTH AFTER 4 DAYS 02/16/19 Anaerobic/Aerobic Culture, Resulted Pending 02/16/19 Anaerobic Culture Result 1 (ZOILA), Resulted Pending 02/16/19 Aerobic Culture, Resulted Pending 02/16/19 Aerobic Culture Result 1 (ZOILA), Resulted Pending 02/16/19 Gram Stain - Final, Resulted 02/16/19 Gram Stain Result 1 (ZOILA) - Final, Resulted 02/16/19 Gram Stain Result 2 (ZOILA) - Final, Resulted Objective Assessment Gallbladder fossa fluid collection, s/p VKIY replacement 02/16. + yeast so far Leukocytosis, improving. History of a biliary leak, status post stent placement and stone extraction. Status post cholecystectomy. Obesity. Plan Plan of Care Continue Zosyn and micafungin f/u cultures Monitor WBC count and temp Monitor VIKY output ERCP today D/w nursing JI VALDEZ MD February 22, 2019 05:36
[2019-02-22 05:42] LABS: ALBUMIN 2.5 g/dL (3.4-5.0); ALBUMIN/GLOBULIN RATIO 0.5 (1.0-1.7); CREATININE 0.9 mg/dL (0.7-1.3); POTASSIUM 3.9 mmol/L (3.5-5.1); TOTAL BILIRUBIN 0.4 mg/dL (0.2-1.0)
[2019-02-22 07:00] VITALS: BP 111/73
[2019-02-22] MEDS: DOCUSATE SODIUM 100 MG CAPSULE. PO SCH ×2 (08:31→20:22)
[2019-02-22] MEDS: HALOPERIDOL 5 MG TABLET. PO SCH (08:31)
[2019-02-22] MEDS: LACTOBACILLUS RHAMNOSUS GG 1 CAPSULE. PO SCH ×2 (08:31→20:22)
[2019-02-22] MEDS: LISINOPRIL 5 MG TABLET. PO SCH (08:31)
[2019-02-22] MEDS: busPIRone 10 MG TABLET. PO SCH ×2 (08:31→20:22)
--- NOTE | 2019-02-22 09:35 | PDOC ---
SURGICAL PROGRESS NOTE Subjective Anil for Dr Godoy no new c/o Vital Signs Vital Signs Date Time Temp Pulse Resp B/P (MAP) Pulse Ox O2 Delivery O2 Flow Rate FiO2 02/22/19 08:31 80 111/73 02/22/19 08:30 16 Room Air 02/22/19 07:00 98.1 97 98.1 02/21/19 17:58 10.0 I&O Intake and Output 02/22/19 07:00 Intake Total 1329.6 ml Output Total 2120 ml Balance -790.4 ml Intake Oral 540 ml IV Total 789.6 ml Output Urine Total 1900 ml Drainage Total 220 ml drain output decreased PATIENT HAS A ULLOA: No General: Alert, No acute distress Abdomen: Soft, No tenderness, Other (drain with bilious return) Labs Laboratory Tests Test 02/22/19 04:30 Sodium Level 140 mmol/L (136-145) Potassium Level 3.9 mmol/L (3.5-5.1) Chloride Level 105 mmol/L (98-107) Carbon Dioxide Level 28 mmol/L (21-32) Anion Gap 7 (6-14) Blood Urea Nitrogen 8 mg/dL (8-26) Creatinine 0.9 mg/dL (0.7-1.3) Estimated GFR (Cockcroft-Gault) 95.0 BUN/Creatinine Ratio 9 (6-20) Glucose Level 149 mg/dL (70-99) Calcium Level 9.0 mg/dL (8.5-10.1) Total Bilirubin 0.4 mg/dL (0.2-1.0) Aspartate Amino Transf (AST/SGOT) 41 U/L (15-37) Alanine Aminotransferase (ALT/SGPT) 58 U/L (16-63) Alkaline Phosphatase 126 U/L (46-116) Total Protein 8.0 g/dL (6.4-8.2) Albumin 2.5 g/dL (3.4-5.0) Albumin/Globulin Ratio 0.5 (1.0-1.7) Laboratory Tests Test 02/22/19 04:30 Sodium Level 140 mmol/L (136-145) Potassium Level 3.9 mmol/L (3.5-5.1) Chloride Level 105 mmol/L (98-107) Carbon Dioxide Level 28 mmol/L (21-32) Anion Gap 7 (6-14) Blood Urea Nitrogen 8 mg/dL (8-26) Creatinine 0.9 mg/dL (0.7-1.3) Estimated GFR (Cockcroft-Gault) 95.0 BUN/Creatinine Ratio 9 (6-20) Glucose Level 149 mg/dL (70-99) Calcium Level 9.0 mg/dL (8.5-10.1) Total Bilirubin 0.4 mg/dL (0.2-1.0) Aspartate Amino Transf (AST/SGOT) 41 U/L (15-37) Alanine Aminotransferase (ALT/SGPT) 58 U/L (16-63) Alkaline Phosphatase 126 U/L (46-116) Total Protein 8.0 g/dL (6.4-8.2) Albumin 2.5 g/dL (3.4-5.0) Albumin/Globulin Ratio 0.5 (1.0-1.7) Problem List Problems Medical Problems: (1) Abdominal pain Status: Acute Assessment/Plan s/p bonita, ERCP follow VIKY output YOSEPH STEPHENS MD February 22, 2019 09:35
[2019-02-22 11:00] VITALS: BP 120/73
--- NOTE | 2019-02-22 11:07 | PDOC ---
PROGRESS NOTES Chief Complaint Chief Complaint A/P: Abdominal pain - s/p lap bonita complicated by bile leak last month. Surgery consulted. VIKY drain removed and replaced by IR Anemia - likely 2/2 recent infection, surgery, hb stable Leukocytosis - meets SIRS criteria with possible infectious source in abdomen. apprec ID and GI GERD - PPI Schizophrenia - will cont home medications Yeast abdominal culture - micafungin per ID PPX - SCDs FULL CODE Inpatient for abdominal pain, surgical site pain, likely 2 midnights History of Present Illness History of Present Illness 38-year-old male presents to ER via detention transport for complaints of ongoing abdominal pain following a laparoscopic cholecystectomy on 01/30/19 and per his records had an ERCP with sphincterotomy on 02/08. Patient was discharged from the hospital on 02/10/19 and patient states he has had abdominal pain since then. Patient states he had concerns as his VIKY drain was not holding suction so he was brought to the ER for evaluation. Patient reports he has been eating denies any nausea or vomiting. Pt reports he has had bowel movements since being discharged. Has leukocytosis, anemia. Normal labs otherwise. Afebrile, but tachycardia and tachypnea CT concerning for fluid, hematoma vs biloma, etc. VIKY drain retracted on CT. Went to IR 02/16/19 to have drain placed with no adverse events. Seen by ID - on zosyn ERCP on 02/21 Plan: Antibiotics, f/u cultures, monitor drain output - started antifungals - d/w ID apprec GI and Gen Sx involvement s/p ERCP pain control monitor VIKY output. Vitals Vitals Vital Signs Date Time Temp Pulse Resp B/P (MAP) Pulse Ox O2 Delivery O2 Flow Rate FiO2 02/22/19 10:58 16 Room Air 02/22/19 08:31 80 111/73 02/22/19 07:00 98.1 97 98.1 02/21/19 17:58 10.0 Physical Exam Physical Exam GENERAL Propped up in bed, alert, watching TV HEENT: Normal conjunctivae, Oral cavity, pharynx is clear. NECK: Supple, no JVD. LUNGS: Clear to auscultation bilaterally. HEART: S1, S2, without gross murmur. ABDOMEN: Obese, soft, NT, VIKY is in place. EXTREMITIES: Without clubbing, cyanosis or gross edema. SKIN: Warm to touch without rash, tattoo. NEUROLOGIC: Alert, responding appropriately PIV General: Alert, No acute distress Heart: Regular rate, Normal S1, Normal S2 Lungs: Clear Abdomen: Soft, No tenderness, Other (drain with bilious return) Extremities: No clubbing, No cyanosis, No edema, Normal pulses, No tenderness/swelling Skin: No rashes, No breakdown, No significant lesion Labs LABS Laboratory Tests Test 02/22/19 04:30 Sodium Level 140 mmol/L (136-145) Potassium Level 3.9 mmol/L (3.5-5.1) Chloride Level 105 mmol/L (98-107) Carbon Dioxide Level 28 mmol/L (21-32) Anion Gap 7 (6-14) Blood Urea Nitrogen 8 mg/dL (8-26) Creatinine 0.9 mg/dL (0.7-1.3) Estimated GFR (Cockcroft-Gault) 95.0 BUN/Creatinine Ratio 9 (6-20) Glucose Level 149 mg/dL (70-99) Calcium Level 9.0 mg/dL (8.5-10.1) Total Bilirubin 0.4 mg/dL (0.2-1.0) Aspartate Amino Transf (AST/SGOT) 41 U/L (15-37) Alanine Aminotransferase (ALT/SGPT) 58 U/L (16-63) Alkaline Phosphatase 126 U/L (46-116) Total Protein 8.0 g/dL (6.4-8.2) Albumin 2.5 g/dL (3.4-5.0) Albumin/Globulin Ratio 0.5 (1.0-1.7) Assessment and Plan Assessmemt and Plan Problems Medical Problems: (1) Abdominal pain Status: Acute Comment Review of Relevant I have reviewed the following items gustavo (where applicable) has been applied. Labs Laboratory Tests Test 02/22/19 04:30 Sodium Level 140 mmol/L (136-145) Potassium Level 3.9 mmol/L (3.5-5.1) Chloride Level 105 mmol/L (98-107) Carbon Dioxide Level 28 mmol/L (21-32) Anion Gap 7 (6-14) Blood Urea Nitrogen 8 mg/dL (8-26) Creatinine 0.9 mg/dL (0.7-1.3) Estimated GFR (Cockcroft-Gault) 95.0 BUN/Creatinine Ratio 9 (6-20) Glucose Level 149 mg/dL (70-99) Calcium Level 9.0 mg/dL (8.5-10.1) Total Bilirubin 0.4 mg/dL (0.2-1.0) Aspartate Amino Transf (AST/SGOT) 41 U/L (15-37) Alanine Aminotransferase (ALT/SGPT) 58 U/L (16-63) Alkaline Phosphatase 126 U/L (46-116) Total Protein 8.0 g/dL (6.4-8.2) Albumin 2.5 g/dL (3.4-5.0) Albumin/Globulin Ratio 0.5 (1.0-1.7) Laboratory Tests Test 02/22/19 04:30 Sodium Level 140 mmol/L (136-145) Potassium Level 3.9 mmol/L (3.5-5.1) Chloride Level 105 mmol/L (98-107) Carbon Dioxide Level 28 mmol/L (21-32) Anion Gap 7 (6-14) Blood Urea Nitrogen 8 mg/dL (8-26) Creatinine 0.9 mg/dL (0.7-1.3) Estimated GFR (Cockcroft-Gault) 95.0 BUN/Creatinine Ratio 9 (6-20) Glucose Level 149 mg/dL (70-99) Calcium Level 9.0 mg/dL (8.5-10.1) Total Bilirubin 0.4 mg/dL (0.2-1.0) Aspartate Amino Transf (AST/SGOT) 41 U/L (15-37) Alanine Aminotransferase (ALT/SGPT) 58 U/L (16-63) Alkaline Phosphatase 126 U/L (46-116) Total Protein 8.0 g/dL (6.4-8.2) Albumin 2.5 g/dL (3.4-5.0) Albumin/Globulin Ratio 0.5 (1.0-1.7) Microbiology 02/15/19 Blood Culture - Final, Complete NO GROWTH AFTER 5 DAYS 02/16/19 Anaerobic/Aerobic Culture, Resulted Pending 02/16/19 Anaerobic Culture Result 1 (ZOILA), Resulted Pending 02/16/19 Aerobic Culture - Final, Resulted 02/16/19 Aerobic Culture Result 1 (ZOILA) - Final, Resulted 02/16/19 Gram Stain - Final, Resulted 02/16/19 Gram Stain Result 1 (ZOILA) - Final, Resulted 02/16/19 Gram Stain Result 2 (ZOILA) - Final, Resulted Medications Current Medications Acetaminophen/ Hydrocodone Bitart (Lortab 5/325) 1 tab 1X ONCE PO Last administered on 02/15/19at 20:26; Start 02/15/19 at 20:00; Stop 02/15/19 at 20:19; Status DC Sodium Chloride 1,000 ml @ 1,000 mls/hr 1X ONCE IV Last administered on 02/15/19at 20:57; Start 02/15/19 at 20:45; Stop 02/15/19 at 21:44; Status DC Iohexol (Omnipaque 300 Mg/ml) 75 ml 1X ONCE IV Last administered on 02/15/19at 21:13; Start 02/15/19 at 21:00; Stop 02/15/19 at 21:01; Status DC Ondansetron HCl (Zofran) 4 mg PRN Q8HRS PRN IV NAUSEA/VOMITING; Start 02/15/19 at 22:30; Stop 02/16/19 at 22:29; Status DC Fentanyl Citrate (Fentanyl 2ml Vial) 50 mcg PRN Q3HRS PRN IV PAIN Last administered on 02/16/19at 22:28; Start 02/15/19 at 22:30; Stop 02/16/19 at 22:29; Status DC Sodium Chloride 1,000 ml @ 125 mls/hr Q8H IV Last administered on 02/16/19at 17:23; Start 02/15/19 at 22:30; Stop 02/16/19 at 22:29; Status DC Piperacillin Sod/ Tazobactam Sod 3.375 gm/Sodium Chloride 50 ml @ 100 mls/hr 1X ONCE IV Last administered on 02/15/19at 23:53; Start 02/15/19 at 22:30; Stop 02/15/19 at 22:59; Status DC Midazolam HCl (Versed) 2 mg STK-MED ONCE .ROUTE ; Start 02/16/19 at 10:03; Stop 02/16/19 at 10:04; Status DC Fentanyl Citrate (Fentanyl 2ml Vial) 100 mcg STK-MED ONCE .ROUTE ; Start 02/16/19 at 10:03; Stop 02/16/19 at 10:04; Status DC Flumazenil (Romazicon) 0.5 mg STK-MED ONCE IV ; Start 02/16/19 at 10:03; Stop 02/16/19 at 10:04; Status DC Naloxone HCl (Narcan) 0.4 mg STK-MED ONCE .ROUTE ; Start 02/16/19 at 10:03; Stop 02/16/19 at 10:04; Status DC Lidocaine/Sodium Bicarbonate (Buffered Lidocaine 1%) 3 ml STK-MED ONCE .ROUTE ; Start 02/16/19 at 10:09; Stop 02/16/19 at 10:10; Status DC Lidocaine/Sodium Bicarbonate (Buffered Lidocaine 1%) 3 ml 1X ONCE IJ Last administered on 02/16/19at 10:30; Start 02/16/19 at 10:30; Stop 02/16/19 at 10:31; Status DC Midazolam HCl (Versed) 2 mg 1X ONCE IV Last administered on 02/16/19at 10:30; Start 02/16/19 at 10:30; Stop 02/16/19 at 10:31; Status DC Fentanyl Citrate (Fentanyl 2ml Vial) 100 mcg 1X ONCE IV Last administered on 02/16/19at 10:30; Start 02/16/19 at 10:30; Stop 02/16/19 at 10:31; Status DC Midazolam HCl (Versed) 2 mg STK-MED ONCE .ROUTE ; Start 02/16/19 at 10:56; Stop 02/16/19 at 10:57; Status DC Fentanyl Citrate (Fentanyl 2ml Vial) 100 mcg STK-MED ONCE .ROUTE ; Start 02/16/19 at 11:03; Stop 02/16/19 at 11:04; Status DC Docusate Sodium (Colace) 100 mg BID PO Last administered on 02/22/19at 08:31; Start 02/16/19 at 21:00 Lactobacillus Rhamnosus (Culturelle) 1 cap BID PO Last administered on 02/22/19at 08:31; Start 02/16/19 at 21:00 Buspirone HCl (Buspar) 30 mg BID PO Last administered on 02/22/19at 08:31; Start 02/16/19 at 21:00 Fluoxetine HCl (PROzac) 40 mg QHS PO Last administered on 02/21/19at 21:37; Start 02/16/19 at 21:00 Haloperidol (Haldol) 10 mg DAILY PO Last administered on 02/22/19 08:31; Start 02/16/19 at 16:30 Lisinopril (Prinivil) 2.5 mg DAILY PO Last administered on 02/22/19 08:31; Start 02/16/19 at 16:30 Mirtazapine (Remeron) 45 mg QHS PO Last administered on 02/21/19 21:37; Start 02/16/19 at 21:00 Olanzapine (ZyPREXA) 15 mg QHS PO Last administered on 02/21/19 21:37; Start 02/16/19 at 21:00 Pantoprazole Sodium (Protonix) 40 mg DAILYAC PO Last administered on 02/22/19 05:08; Start 02/16/19 at 16:30 Piperacillin Sod/ Tazobactam Sod 3.375 gm/Sodium Chloride 50 ml @ 100 mls/hr Q6HRS IV Last administered on 02/22/19 05:08; Start 02/16/19 at 18:00 Fentanyl Citrate (Fentanyl 2ml Vial) 50 mcg PRN Q3HRS PRN IV PAIN Last administered on 02/22/19 10:58; Start 02/17/19 at 02:45 Prochlorperazine Edisylate (Compazine) 10 mg PRN Q6HRS PRN IV NAUSEA/VOMITING; Start 02/18/19 at 02:15 Micafungin Sodium 100 mg/Dextrose 100 ml @ 100 mls/hr Q24H IV Last administered on 02/21/19 14:14; Start 02/18/19 at 15:00 Ringer's Solution 1,000 ml @ 50 mls/hr Q20H IV ; Start 02/21/19 at 09:59; Stop 02/21/19 at 21:58; Status DC Ringer's Solution 1,000 ml @ 75 mls/hr [id number] IV Last administered on 02/21/19at 10:03; Start 02/21/19 at 10:00 Iohexol (Omnipaque 300 Mg/ml) 100 ml STK-MED ONCE .ROUTE ; Start 02/21/19 at 10:04; Stop 02/21/19 at 10:05; Status DC Rocuronium Argenta (Zemuron) 50 mg STK-MED ONCE .ROUTE ; Start 02/21/19 at 10:15; Stop 02/21/19 at 10:16; Status DC Succinylcholine Chloride (Anectine) 200 mg STK-MED ONCE .ROUTE ; Start 02/21/19 at 10:15; Stop 02/21/19 at 10:16; Status DC Iohexol (Omnipaque 350 Mg/ml) 100 ml STK-MED ONCE IV Last administered on 02/21/19at 11:30; Start 02/21/19 at 11:30; Stop 02/21/19 at 12:05; Status DC Hydromorphone HCl (Dilaudid) 1 mg 1X ONCE IV Last administered on 02/21/19at 14:14; Start 02/21/19 at 14:00; Stop 02/21/19 at 14:01; Status DC Active Scripts Active Culturelle (Lactobacillus Rhamnosus Gg) 1 Each Cap.sprink 1 Cap PO BID 30 Days Colace (Docusate Sodium) 100 Mg Capsule 100 Mg PO BID 10 Days Amox Tr-K Clv 875-125 Mg Tab (Amoxicillin/Potassium Clav) 1 Each Tablet 1 Tab PO BID 10 Days Reported Buspirone Hcl 30 Mg Tablet 1 Tab PO BID Protonix (Pantoprazole Sodium) 20 Mg Tablet.dr 2 Tab PO DAILY Zantac (Ranitidine Hcl) 150 Mg Tablet 1 Tab PO HS Tums (Calcium Carbonate) 200 Mg Tab.chew 200 Mg PO TID Zyprexa (Olanzapine) 15 Mg Tablet 1 Tab PO QHS Remeron (Mirtazapine) 15 Mg Tablet 3 Tab PO QHS Lisinopril 2.5 Mg Tablet 1 Tab PO DAILY Haloperidol 10 Mg Tablet 10 Mg PO DAILY Prozac (Fluoxetine Hcl) 40 Mg Capsule 1 Cap PO HS Metformin Hcl 500 Mg Tablet 500 Mg PO BIDWMEALS Vitals/I & O Vital Sign - Last 24 Hours 02/21/19 02/21/19 02/21/19 02/21/19 12:00 12:17 13:00 13:11 Temp 98.1 98.1 Pulse 103 107 100 111 Resp 20 20 B/P (MAP) 145/82 139/78 130/83 (99) 130/83 Pulse Ox 98 94 93 O2 Delivery Simple Mask Room Air O2 Flow Rate 10 02/21/19 02/21/19 02/21/1919 13:14 13:15 13:30 13:45 Pulse 104 102 100 B/P (MAP) 138/104 (115) 149/101 (117) 131/83 (99) Pulse Ox 94 93 94 95 O2 Delivery Room Air Room Air Room Air Room Air 02/21/19 02/21/19 02/21/19 02/21/19 14:00 14:14 14:30 15:00 Pulse 103 90 93 B/P (MAP) 132/82 (99) 140/79 (99) 122/76 (91) Pulse Ox 94 95 100 98 O2 Delivery Room Air Room Air Room Air 02/21/19 02/21/19 02/21/19 02/21/19 15:00 16:26 17:58 19:20 Temp 98.1 98.1 Pulse 18 Resp 18 B/P (MAP) 123/75 (91) Pulse Ox 98 96 O2 Delivery Room Air Room Air Room Air O2 Flow Rate 10.0 02/21/19 02/21/19 02/21/19 02/21/19 19:24 20:00 22:22 23:15 Temp 98.1 98.1 Pulse 85 Resp 18 18 18 B/P (MAP) 119/75 (90) Pulse Ox 97 O2 Delivery Room Air Room Air Room Air Room Air 02/22/19 02/22/19 02/22/19 02/22/19 01:19 03:35 04:40 07:00 Temp 98.1 98.1 98.1 98.1 Pulse 82 80 Resp 18 18 18 18 B/P (MAP) 108/69 (82) 111/73 (86) Pulse Ox 94 97 O2 Delivery Room Air Room Air Room Air Room Air 02/22/19 02/22/19 02/22/19 02/22/19 07:41 08:00 08:30 08:31 Pulse 80 Resp 16 16 B/P (MAP) 111/73 O2 Delivery Room Air Room Air Room Air 02/22/19 10:58 Resp 16 O2 Delivery Room Air Intake and Output 02/21/19 02/21/19 02/22/19 15:00 23:00 07:00 Intake Total 400 ml 929.6 ml Output Total 220 ml 1250 ml 650 ml Balance 180 ml -1250 ml 279.6 ml SEVEN PETERSON MD February 22, 2019 11:07
--- NOTE | 2019-02-22 11:41 | PDOC ---
Subjective: Subjective: Tolerating PO, less output. Objective: Vital Signs: Vital Signs Date Time Temp Pulse Resp B/P (MAP) Pulse Ox O2 Delivery O2 Flow Rate FiO2 02/22/19 11:36 16 Room Air 02/22/19 08:31 80 111/73 02/22/19 07:00 98.1 97 98.1 02/21/19 17:58 10.0 Labs: Laboratory Tests Test 02/22/19 04:30 Sodium Level 140 mmol/L Potassium Level 3.9 mmol/L Chloride Level 105 mmol/L Carbon Dioxide Level 28 mmol/L Anion Gap 7 Blood Urea Nitrogen 8 mg/dL Creatinine 0.9 mg/dL Estimated GFR (Cockcroft-Gault) 95.0 BUN/Creatinine Ratio 9 Glucose Level 149 mg/dL Calcium Level 9.0 mg/dL Total Bilirubin 0.4 mg/dL Aspartate Amino Transf (AST/SGOT) 41 U/L Alanine Aminotransferase (ALT/SGPT) 58 U/L Alkaline Phosphatase 126 U/L Total Protein 8.0 g/dL Albumin 2.5 g/dL Albumin/Globulin Ratio 0.5 ANAEROBIC-AEROBIC CULTURE PENDING ANAEROBIC RES 1 PENDING AEROBIC CULT Final Final report AEROBIC RES 1 Final Yeast isolated. 4+ Request for further identification must be made within 1 week. GRAM STAIN Final Final report GRAM STAIN RES 1 Final Comment No white blood cells seen. GRAM STAIN RES 2 Final Yeast Rare seen Imaging: ERCP 02/21 E, G, D ok on cursory exam. [id number]. Initial cholangiogram stones common duct (suspect in cystic duct last week). Extension of ES; minor bleeding, stopped. Balloon dilated papilla to 12mm x one minute x 2. Initial balloon sweep with small fragments. Occlusion cholangiogram with 2 stone in cystic duct; able eventually to get wire and balloon into cystic duct and remove the stones. Multiple sweeps after with some fragments, but finally nothing. IMP: Choledocholithiasis, resolved. PE: GEN: NAD LUNGS: CTAB HEART: RRR ABD: non-tender, drain bilious NEURO/PSYCH: A & O 3 A/P: Choledocholithiasis, bile leak s/p ERCP x 2 -- Eating well. DC per primary/surgery. DARREL MUELLER February 22, 2019 11:41
[2019-02-22] MEDS: IV RINGERS,LACTATED 1000ML 1,000 ML IV SCH (12:35)
[2019-02-22 15:00] VITALS: BP 117/77
[2019-02-22] MEDS: MICAFUNGIN 100 MG in IV DEXTROSE 5% 100ML 100 ML IV SCH (15:29)
[2019-02-22 19:00] VITALS: BP 148/91
[2019-02-22] MEDS: MIRTAZAPINE 15 MG TABLET PO SCH (20:21)
[2019-02-22] MEDS: FLUoxetine HCL 20 MG CAPSULE PO SCH (20:22)
[2019-02-22] MEDS: OLANZapine 5 MG TABLET PO SCH (20:22)
--- NOTE | 2019-02-22 22:45 | NUR ---
Patient complains of continuing pain post IVP fentanyl. To early for dose of ordered Fentanyl. Page to Dr. Baires regarding pain medication. Dr. Sandoval returned call and informed of pain complaints and verified with him patient allergy to codeine. Dr. Sandoval ordered Hydrocodone5 1 PRN Q 6hrs PRN. This RN verified Codeine allergy and Dr. Sandoval stated Patient has had Hydrocodone in past.
[2019-02-22 23:00] VITALS: BP 122/79
[2019-02-22] MEDS: HYDROcodone/APAP 5/325MG 1 TAB TABLET PO PRN (23:02)
[2019-02-23] MEDS: PIPERACILLIN/TAZOBACTAM 3.375 GM in IV NORMAL SALINE 50ML 50 ML IV SCH ×2 (00:01→06:21)
[2019-02-23] MEDS: IV RINGERS,LACTATED 1000ML 1,000 ML IV SCH (02:00)
[2019-02-23 03:00] VITALS: BP 116/78
[2019-02-23] MEDS: fentaNYL PF VIAL 100 MCG/2 ML VIAL IV PRN ×3 (03:52→09:43)
[2019-02-23] MEDS: HYDROcodone/APAP 5/325MG 1 TAB TABLET PO PRN (06:21)
[2019-02-23] MEDS: PANTOPRAZOLE 40 MG TABLET.DR. PO SCH (06:22)
[2019-02-23 07:00] VITALS: BP 120/69
[2019-02-23 08:42] VITALS: BP 120/69
[2019-02-23] MEDS: busPIRone 10 MG TABLET. PO SCH (08:44)
[2019-02-23] MEDS: HALOPERIDOL 5 MG TABLET. PO SCH (08:45)
[2019-02-23] MEDS: LACTOBACILLUS RHAMNOSUS GG 1 CAPSULE. PO SCH (08:45)
[2019-02-23] MEDS: DOCUSATE SODIUM 100 MG CAPSULE. PO SCH (08:45)
[2019-02-23] MEDS: LISINOPRIL 5 MG TABLET. PO SCH (08:46)
[2019-02-23] MEDS ORDERED: FLUCONAZOLE 100 MG TABLET. PO SCH (09:00)
[2019-02-23] MEDS ORDERED: AMOXICILLIN/K CLAV 875/125MG TABLET. PO SCH (09:00)
--- NOTE | 2019-02-23 09:08 | PDOC ---
Infectious Disease Note Subjective Subjective sleepy, cont to c/o pain ROS ROS no n/v/d/fever Vital Sign Vital Signs Vital Signs Date Time Temp Pulse Resp B/P (MAP) Pulse Ox O2 Delivery O2 Flow Rate FiO2 02/23/19 08:46 94 120/69 02/23/19 07:43 Room Air 02/23/19 06:21 20 96 02/23/19 03:00 97.8 97.8 02/22/19 18:00 10.0 Physical Exam PHYSICAL EXAM GENERAL Propped up in bed, alert, watching TV HEENT: Normal conjunctivae, Oral cavity, pharynx is clear. NECK: Supple, no JVD. LUNGS: Clear to auscultation bilaterally. HEART: S1, S2, without gross murmur. ABDOMEN: Obese, soft, NT, VIKY is in place. EXTREMITIES: Without clubbing, cyanosis or gross edema. SKIN: Warm to touch without rash, tattoo. NEUROLOGIC: Alert, responding appropriately PIV Labs Micro Microbiology 02/15/19 Blood Culture - Preliminary, Resulted NO GROWTH AFTER 4 DAYS 02/16/19 Anaerobic/Aerobic Culture, Resulted Pending 02/16/19 Anaerobic Culture Result 1 (ZOILA), Resulted Pending 02/16/19 Aerobic Culture, Resulted Pending 02/16/19 Aerobic Culture Result 1 (ZOILA), Resulted Pending 02/16/19 Gram Stain - Final, Resulted 02/16/19 Gram Stain Result 1 (ZOILA) - Final, Resulted 02/16/19 Gram Stain Result 2 (ZOILA) - Final, Resulted Objective Assessment Gallbladder fossa fluid collection, s/p VIKY replacement 02/16. + yeast so far Leukocytosis, improving. History of a biliary leak, status post stent placement and stone extraction. Status post cholecystectomy. Obesity. Plan Plan of Care change antibiotics to po augmentin and diflucan for 7 more days ok to d/c JI VALDEZ MD February 23, 2019 09:08
[2019-02-23] MEDS ORDERED: AMOX1TAB11 PO (09:43)
[2019-02-23] MEDS ORDERED: Fluconazole PO (09:43)
--- NOTE | 2019-02-23 10:21 | PDOC ---
SURGICAL PROGRESS NOTE Subjective Pt with c/o mild pain, garth diet Vital Signs Vital Signs Date Time Temp Pulse Resp B/P (MAP) Pulse Ox O2 Delivery O2 Flow Rate FiO2 02/23/19 09:43 Room Air 02/23/19 08:46 94 120/69 02/23/19 07:00 99.6 16 94 99.6 02/22/19 18:00 10.0 I&O Intake and Output 02/23/19 07:00 Intake Total 2240 ml Output Total 330 ml Balance 1910 ml Intake Oral 2240 ml Output Urine Total 300 ml Drainage Total 30 ml # Voids 2 General: Alert, Oriented X3, Cooperative, No acute distress Abdomen: Soft, No tenderness, Other (VIKY min serous with bile tinge) Labs Laboratory Tests Test 02/22/19 04:30 Sodium Level 140 mmol/L (136-145) Potassium Level 3.9 mmol/L (3.5-5.1) Chloride Level 105 mmol/L (98-107) Carbon Dioxide Level 28 mmol/L (21-32) Anion Gap 7 (6-14) Blood Urea Nitrogen 8 mg/dL (8-26) Creatinine 0.9 mg/dL (0.7-1.3) Estimated GFR (Cockcroft-Gault) 95.0 BUN/Creatinine Ratio 9 (6-20) Glucose Level 149 mg/dL (70-99) Calcium Level 9.0 mg/dL (8.5-10.1) Total Bilirubin 0.4 mg/dL (0.2-1.0) Aspartate Amino Transf (AST/SGOT) 41 U/L (15-37) Alanine Aminotransferase (ALT/SGPT) 58 U/L (16-63) Alkaline Phosphatase 126 U/L (46-116) Total Protein 8.0 g/dL (6.4-8.2) Albumin 2.5 g/dL (3.4-5.0) Albumin/Globulin Ratio 0.5 (1.0-1.7) Problem List Problems Medical Problems: (1) Abdominal pain Status: Acute Assessment/Plan bile leak cont drain, gradual improvement JANA VITAL MD February 23, 2019 10:21
[2019-02-23 11:00] VITALS: BP 116/69
--- NOTE | 2019-02-23 12:24 | NUR ---
Discharged to [facility] per w/c accompanied by guards, report called to [facility] earlier
--- NOTE | 2019-02-23 16:16 | PDOC3 ---
Discharge Summary Visit Information Date of Admission: February 15, 2019 Date of Discharge: February 23, 2019 Final Diagnosis Problems Medical Problems: (1) Abdominal pain Status: Acute Brief Hospital Course Allergies Allergies Coded Allergies Type Severity Reaction Last Updated Verified codeine Allergy Intermediate Hives 02/21/19 Yes I S O L A T I O N *CONTACT* Allergy Unknown 02/21/19 Yes lithium Adverse Reaction Severe SEIZURE 02/21/19 Yes Vital Signs Vital Signs Date Time Temp Pulse Resp B/P (MAP) Pulse Ox O2 Delivery O2 Flow Rate FiO2 02/23/19 11:00 98.1 86 18 116/69 (85) 96 Room Air 98.1 02/22/19 18:00 10.0 Lab Results Laboratory Tests Test 02/22/19 04:30 Sodium Level 140 mmol/L (136-145) Potassium Level 3.9 mmol/L (3.5-5.1) Chloride Level 105 mmol/L (98-107) Carbon Dioxide Level 28 mmol/L (21-32) Anion Gap 7 (6-14) Blood Urea Nitrogen 8 mg/dL (8-26) Creatinine 0.9 mg/dL (0.7-1.3) Estimated GFR (Cockcroft-Gault) 95.0 BUN/Creatinine Ratio 9 (6-20) Glucose Level 149 mg/dL (70-99) Calcium Level 9.0 mg/dL (8.5-10.1) Total Bilirubin 0.4 mg/dL (0.2-1.0) Aspartate Amino Transf (AST/SGOT) 41 U/L (15-37) Alanine Aminotransferase (ALT/SGPT) 58 U/L (16-63) Alkaline Phosphatase 126 U/L (46-116) Total Protein 8.0 g/dL (6.4-8.2) Albumin 2.5 g/dL (3.4-5.0) Albumin/Globulin Ratio 0.5 (1.0-1.7) Brief Hospital Course 38-year-old male presents to ER via custodial transport for complaints of ongoing abdominal pain following a laparoscopic cholecystectomy on 01/30/19 and per his records had an ERCP with sphincterotomy on 02/08. Patient was discharged from the hospital on 02/10/19 and patient states he has had abdominal pain since then. Patient states he had concerns as his VIKY drain was not holding suction so he was brought to the ER for evaluation. Patient reports he has been eating denies any nausea or vomiting. Pt reports he has had bowel movements since being discharged. Has leukocytosis, anemia. Normal labs otherwise.Afebrile, but tachycardia and tachypnea. CT concerning for fluid, hematoma vs biloma, etc. VIKY drain retracted on CT.. Went to IR 02/16/19 to have drain placed with no adverse events. Seen by ID - placed on zosyn ERCP on 02/21 summary below: Abdominal pain - s/p lap bonita complicated by bile leak last month. Surgery consulted. VIKY drain removed and replaced by IR Anemia - likely 2/2 recent infection, surgery, hb stable Leukocytosis - meets SIRS criteria with possible infectious source in abdomen. apprec ID and GI. on IV zosyn. switched to augmentin at dc for 7 days GERD - was continued on PPI therapy Schizophrenia - will cont home medications, no changes Yeast abdominal culture - micafungin per ID. will dc on this for 7 days post discharge pain controlled with narcotics. will not send him out on any IVKY drains in place at time of discharge and will remain in place. patient discharged in stable condition back to facility Discharge Information Condition at Discharge: Stable Disposition/Orders: Other (dc to custodial) Scheduled Amoxicillin/Potassium Clav (Amox Tr-K Clv 875-125 Mg Tab) 1 Each Tablet, 1 TAB PO BID for infection for 7 Days, #14 Prescribed by: SEVEN PETERSON MD on 02/23/19 0943 Buspirone Hcl (Buspirone Hcl) 30 Mg Tablet, 1 TAB PO BID for anxiety, #60 (Reported) Entered as Reported by: GABBIE JENKINS on 01/28/19248 Last Action: Converted on 02/16/191556 by ROSALVA AVELAR MD Calcium Carbonate (Tums) 200 Mg Tab.chew, 200 MG PO TID for acid reflux, #2 (Reported) Entered as Reported by: GABBIE JENKINS on 01/28/19248 Docusate Sodium (Colace) 100 Mg Capsule, 100 MG PO BID for CONSTIPATION for 10 Days, #20 Prescribed by: BERNARDINO COX MD on 02/10/19 1151 Last Action: Continued on 02/16/191556 by ROSALVA AVELAR MD Fluoxetine Hcl (Prozac) 40 Mg Capsule, 1 CAP PO HS for anxiety, #30 Ref 3 (Reported) Entered as Reported by: GABBIE JENKINS on 01/28/19247 Last Action: Converted on 02/16/191556 by ROSALVA AVELAR MD Haloperidol (Haloperidol) 10 Mg Tablet, 10 MG PO DAILY for anxiety, (Reported) Entered as Reported by: GABBIE JENKINS on 01/28/19247 Last Action: Converted on 02/16/191556 by ROSALVA AVELAR MD Lactobacillus Rhamnosus Gg (Culturelle) 1 Each Cap.sprink, 1 CAP PO BID for SUPPLEMENT for 30 Days, #60 Prescribed by: BERNARDINO COX MD on 02/10/191150 Last Action: Continued on 02/16/191556 by ROSALVA AVELAR MD Lisinopril (Lisinopril) 2.5 Mg Tablet, 1 TAB PO DAILY for hypertension, #30 Ref 5 (Reported) Entered as Reported by: GABBIE JENKINS on 01/28/19248 Last Action: Converted on 02/16/191556 by ROSALVA AVELAR MD Metformin Hcl (Metformin Hcl) 500 Mg Tablet, 500 MG PO BIDWMEALS for ANTI- DIABETIC, Ref 0 (Reported) Entered as Reported by: GABBIE JENKINS on 01/28/19247 Mirtazapine (Remeron) 15 Mg Tablet, 3 TAB PO QHS for depression, #30 Ref 1 (Reported) Entered as Reported by: GABBIE JENKINS on 01/28/19248 Last Action: Converted on 02/16/191556 by ROSALVA AVELAR MD Olanzapine (Zyprexa) 15 Mg Tablet, 1 TAB PO QHS for mood, #30 (Reported) Entered as Reported by: GABBIE JENKINS on 01/28/19248 Last Action: Converted on 02/16/191556 by ROSALVA AVELAR MD Pantoprazole Sodium (Protonix) 20 Mg Tablet.dr, 2 TAB PO DAILY for GERD, #30 (Reported) Entered as Reported by: GABBIE JENKINS on 01/28/19248 Last Action: Converted on 02/16/191556 by ROSALVA AVELAR MD [Fluconazole] 100 MG TABLET, 200 MG PO DAILY for 7 Days, #14 Prescribed by: SEVEN PETERSON MD on 02/23/19 0943 Discontinued Medications Amoxicillin/Potassium Clav (Amox Tr-K Clv 875-125 Mg Tab) 1 Each Tablet, 1 TAB PO BID for INFECTION for 10 Days, #20 Prescribed by: BERNARDINO COX MD on 02/10/19 1151 Ranitidine Hcl (Zantac) 150 Mg Tablet, 1 TAB PO HS for acid reflux, #60 Ref 3 (Reported) Entered as Reported by: GABBIE JENKINS on 01/28/19 0249 SEVEN PETERSON MD February 23, 2019 16:16
== END 2019-02-23 12:26 | disposition home or self-care (01) | DRG 919 ==
LOC: ER 17:25 → EEVIPCON 17:25 → 4 NORTH 22:10
PROVIDERS: ADMIT Internal Medicine; ATTEND Internal Medicine
PROC: 0F9430Z Drainage of Gallbladder with Drainage Device, Percutaneous Approach (ICD-10-PCS; 2019-02-16)
PROC: 0FP4X0Z Removal of Drainage Device from Gallbladder, External Approach (ICD-10-PCS; 2019-02-16)
PROC: BF141ZZ Fluoroscopy of Gallbladder, Bile Ducts and Pancreatic Ducts using Low Osmolar Contrast (ICD-10-PCS; 2019-02-21)
PROC: 0F7C8ZZ Dilation of Ampulla of Vater, Via Natural or Artificial Opening Endoscopic (ICD-10-PCS; principal; 2019-02-21 12:00)
PROC: 0FC88ZZ Extirpation of Matter from Cystic Duct, Via Natural or Artificial Opening Endoscopic (ICD-10-PCS; 2019-02-21 12:00)
DX: T85.510A Breakdown (mechanical) of bile duct prosthesis, initial encounter (principal); A41.9 Sepsis, unspecified organism; T81.40XA Infection following a procedure, unspecified, initial encounter; Z68.41 Body mass index [BMI] 40.0-44.9, adult; K21.9 Gastro-esophageal reflux disease without esophagitis; D64.9 Anemia, unspecified; E66.9 Obesity, unspecified; F20.9 Schizophrenia, unspecified; F32.9 Major depressive disorder, single episode, unspecified; F41.9 Anxiety disorder, unspecified; I10 Essential (primary) hypertension; K59.00 Constipation, unspecified; K80.50 Calculus of bile duct without cholangitis or cholecystitis without obstruction; Z79.899 Other long term (current) drug therapy; Z79.84 Long term (current) use of oral hypoglycemic drugs; Z83.3 Family history of diabetes mellitus; Z90.49 Acquired absence of other specified parts of digestive tract; Z88.8 Allergy status to other drugs, medicaments and biological substances
CPT/HCPCS: 36415; 43262; 43264; 43277; 49406; 74177; 74181; 74328; 80053; 83540; 83550; 83605; 83690; 85025; 85610; 85730; 87040; 87071; 87075; 87641; 96361; 96365; 99152; 99153; A4215; C1726; C1729; C1894; G0238; J0330; J1170; J2248; J2250; J2543; J3010; J7030; J7120; Q9967; 99285-25